=== PATIENT | male | born 1950 | race Caucasian/White ===

== ENCOUNTER 2020-06-23 15:20 | Outpatient (CLI) | payer MEDICARE, SELFPAY ==
--- NOTE | ~2020-06-23 | XR_ITS ---
EXAMINATION: XR shoulder RT min 2V EXAM DATE: 06/23/2020 15:58 INDICATION: No known recent injury provided at this time. Pain of the right shoulder. TECHNIQUE: The following right shoulder projections obtained: frontal projection with internal rotati on, frontal projection with external rotation, Grashey, and axillary (4+ views). Comparison is made t o prior examination from 09/11/2018. FINDINGS: No evidence of right shoulder rotator cuff calcific tendinosis. There is mild to moderate glenohumeral and acromioclavicular joint primary osteoarthritis. There are no acute fractures or disl ocations identified. There is no subcutaneous gas. The soft tissue is unremarkable. There are no radiopaque foreign bodies. IMPRESSION: Mild to moderate right shoulder osteoarthritis. Reviewed, dictated and finalized at location G.
== END 2020-06-23 15:21 | disposition home or self-care (01) ==
PROVIDERS: PCP Family Medicine; Visit Provider Family Medicine
DX: M19.011 Primary osteoarthritis, right shoulder (principal)
CPT/HCPCS: 73030

== ENCOUNTER 2021-02-05 12:46 | Outpatient (CLI) | payer MEDICARE, SELFPAY ==
--- NOTE | ~2021-02-05 | MR_ITS ---
EXAMINATION: MR shoulder RT wo con DATE: 02/05/2021 13:30 INDICATION: Right shoulder pain TECHNIQUE: Magnetic resonance imaging (MRI) of the right shoulder was performed without intravenous c ontrast. Sequences included axial PD-weighted FS FSE, coronal oblique PD-weighted FS FSE, coronal obl ique T2-weighted FS FSE, sagittal PD-weighted FS FSE, and sagittal T1-weighted SE. COMPARISON: Right shoulder radiographs dated 06/23/2020 FINDINGS: Coracoacromial arch: The acromion undersurface is curved in morphology (type II). There is mild marrow edema centered chidi g the undersurface of the mid and posterior acromion. The coracoacromial ligament is normal. Moderate acromioclavicular osteoarthritis. Rotator cuff: Full-thickness tear involving the majority of the supraspinatus and infraspinatus tendons with approx imately 3.5 cm medial retraction of the tear margin. There is moderate to severe tendinopathy along t he retracted tear margin. Small portion of the bursal side of the tendon remain intact the anterior s upraspinatus and posterior infraspinatus. The full-thickness portion of the tear measures approximate ly 3 cm AP at the level of the apex of the humeral head. The teres minor and subscapularis tendons ar e normal. There is medial retraction moderate fatty atrophy of both the supraspinatus and infraspinat us muscle bellies. Biceps tendon, glenoid labrum and glenohumeral cartilage: Circumferential degenerative tearing of the glenoid labrum including at the superior biceps labral co mplex. Large multilobulated para meniscal cyst which appears to arise at the posterior superior labru m which extends approximately 3.5 cm medially and posterior inferiorly across the spinal glenoid notc h and which measures 1.4 x 1.9 cm in maximal orthogonal dimensions. The long head biceps tendon howev er remains attached with no evident tendinopathy or tear. Severe right glenohumeral osteoarthritis wi th partial thickness cartilage loss which appears full/near full-thickness along the cephalad half of the glenoid with subarticular cystic changes at the superior to anterosuperior glenoid as well as at the posterior rim. Additional full/near full-thickness cartilage loss extending across much of the h umeral head relatively sparing the periphery of the articular surface. There is additional mild corti annika irregularity and minimal subarticular edema and cystic change at the superomedial aspect of the h umeral head. Fluid: Minimal glenohumeral joint effusion with proportional small amount of fluid in the long head biceps t endon sheath as well as small amount of fluid extending through the full-thickness rotator cuff tear into the subacromial/subdeltoid bursa. No loose osteochondral bodies. Bones: There is mild cephalad subluxation of the humeral head with respect to the glenoid resulting in narro wing of the subacromial space with approximately 2 mm the cortices at the apex of the jamal ral head and the undersurface of the acromion. Additional cystic changes are seen at the superior and middle facets of the greater tuberosity likely related to chronic rotator cuff disease. No fracture or pathologic marrow replacing process. IMPRESSION: 1. Severe right glenohumeral osteoarthritis with diffuse degenerative tearing of the glenoid labrum. 2. Large multilobulated or labral cyst arising from the posterior superior glenoid and extending 3.5 cm posterior inferomedially across the spinal glenoid notch. 3. Large full-thickness/severe articular sided tear of the supraspinatus and infraspinatus tendons wi th small amount of residual intact bursal side of the anterior supraspinatus and posterior infraspina tus tendons. This is likely chronic given the associated cystic change at the greater tuberosity and moderate fatty atrophy of the supraspinatus and infraspinous muscles. 4. Moderate acromioclavicular osteoarthrit
== END 2021-02-05 12:47 | disposition home or self-care (01) ==
PROVIDERS: PCP Family Medicine; Visit Provider Orthopaedic Surgery
DX: M19.011 Primary osteoarthritis, right shoulder (principal)
CPT/HCPCS: 73221

== ENCOUNTER 2021-09-14 11:25 | Emergency (ER) | payer MEDICARE, SELFPAY ==
--- NOTE | 2021-09-14 11:27 | ED.UPPEXIN ---
HPI - Extremity Injury (Upper) General Chief Complaint: Wound/Laceration Stated Complaint: lt elbow injury Time Seen by Provider: 09/14/21 11:27 Source: patient and RN notes reviewed History of Present Illness HPI narrative: Patient is a 71-year-old male who presents the urgent care with complaints of left elbow swelling. Patient [place] and is continuously had a scant amount of drainage from the left elbow with mild swelling. Patient denies of any pain. States that he is had no fevers. Range of motion to left upper extremity has been normal. No other acute complaints. No acute distress noted. Patient aware of the plan of care. Some parts of this dictation were generated by voice recognition software and may contain typographical and/or grammatical inaccuracies. Related Data Home Medications Medication Instructions Recorded Confirmed acetaminophen 500 mg PO Q6-8H 09/14/21 09/14/21 aspirin 81 mg PO DAILY 09/14/21 09/14/21 docusate sodium 100 mg PO BID 09/14/21 09/14/21 Allergies Allergy/AdvReac Type Severity Reaction Status Date / Time sertraline Allergy Mild Diarrhea Verified 09/14/21 11:42 Review of Systems Review of Systems: CONSTITUTIONAL: Denies fever, chills, or sweats. EYES: Denies visual changes, redness, or discharge. ENT: Denies rhinorrhea, congestion, sore throat, or otalgia. CARDIOVASCULAR: Denies chest pain, palpitations, or edema. RESPIRATORY: Denies cough or dyspnea. GASTROINTESTINAL: Denies abdominal pain, nausea, vomiting, or diarrhea. GENITOURINARY: Denies dysuria or hematuria. SKIN: Denies rash or itching. MUSCULOSKELETAL: Reports of swelling over the left elbow NEUROLOGIC: Denies headache, numbness, or weakness. All other systems reviewed are negative, except as documented in HPI. [facility] Past Medical History Medical History Arthritis of right shoulder region Basal cell carcinoma Benign essential hypertension BMI 23.0-23.9, adult Gout Hypertension Idiopathic peripheral neuropathy Metabolic syndrome Mixed hyperlipidemia Posttraumatic stress disorder Prediabetes Rotator cuff tendonitis Tear of right rotator cuff Surgical History Surgical History H/O colonoscopy (~04/2007) H/O colonoscopy (~06/2012) History of appendectomy (~10/21/09) Hx of colonoscopy 2011 Family History Family History Other Family history of cardiovascular disease Family history of elevated blood lipids Social History Social History Years smoked: 48 Tobacco type: pipe Alcohol intake: current Drinks per week: 14 Additional occupation/education comments: retired from [employer] Gender identity (if verbalized by the patient): Male Comments At the time of my signature, I reviewed and agree with the nursing past medical, surgical, social, and family history. There is no relevant family history pertinent to the patient complaint. Exam Narrative: GENERAL: This is a well-nourished, well-developed patient, in no apparent distress. HEAD: normocephalic, atraumatic. EYES: PERRL. Sclera clear/white. Vision is grossly intact. EARS: External ears normal NOSE: External nose normal with no obvious nasal discharge, nares without redness, no rhinorrhea. THROAT: Mucous membranes moist NECK: Neck supple, non-tender without lymphadenopathy, masses or thyromegaly. CARDIOVASCULAR: Regular rate and rhythm SKIN: Pinpoint puncture to left elbow bursitis with scant clear drainage. Warm, intact with no suspicious lesions or rash, good texture and turgor. NEURO: awake, alert, and oriented to person, place and time. There were no obvious focal neurologic abnormalities. EXTREMITIES: Mild to moderate nonerythemic/nontender bursitis to the left elbow wit
[2021-09-14 11:35] VITALS: BP 134/74; PULSE 63; RESP 20; TEMP 36.5; O2SAT 100
== END 2021-09-14 11:58 | disposition home or self-care (01) ==
PROVIDERS: Emergency Provider Nurse Practitioner Family; PCP Family Medicine
DX: M70.22 Olecranon bursitis, left elbow (principal); Z79.82 Long term (current) use of aspirin; I10 Essential (primary) hypertension; E78.2 Mixed hyperlipidemia; W19.XXXA Unspecified fall, initial encounter; Y92.828 Other wilderness area as the place of occurrence of the external cause
CPT/HCPCS: 99213; G0463

== ENCOUNTER 2022-05-11 12:45 | Outpatient (CLI) | payer MEDICARE, SELFPAY ==
--- NOTE | ~2022-05-11 | XR_ITS ---
XR cervical spine min 6V 05/11/2022 13:22 Indication: Cervicalgia Procedure: 7 view cervical spine Comparison: No prior studies for comparison. Findings: There is reversal of cervical lordosis. Prominent ventral osteophytes at multiple levels. T here is degenerative anterolisthesis at C3-4. No prevertebral soft tissue swelling. No significant al teration of alignment with flexion/extension. No acute fracture or traumatic malalignment. Odontoid p rocess is unremarkable. Lung apices are normal. Impression: 1: Moderate cervical spondylosis. Reviewed, dictated and finalized at location A. Impression: 1: Moderate cervical spondylosis.
== END 2022-05-11 12:46 | disposition home or self-care (01) ==
PROVIDERS: PCP Family Medicine; Visit Provider Family Medicine
DX: M47.892 Other spondylosis, cervical region (principal)
CPT/HCPCS: 72052

== ENCOUNTER 2022-09-25 22:21 | Emergency (ER) | payer MEDICARE, SELFPAY ==
[2022-09-25] VITALS (7 sets, daily range): BP systolic 109–122; BP diastolic 54–90; PULSE 54–66; RESP 14–19; TEMP 36.9; O2SAT 97–100
--- NOTE | ~2022-09-25 | CT_ITS ---
EXAMINATION: CT brain wo con DATE: 09/25/2022 23:04 INDICATION: Slurred speech. TECHNIQUE: Computed tomography (CT) of the head was performed without intravenous contrast. Sagittal and coronal reconstructions were performed. The mA was adjusted according to patient size. Iterative reconstruction technique was employed. The dose-length product was 605.33 mGy-cm. COMPARISON: None FINDINGS: No acute intracranial hemorrhage, acute infarction or abnormal extra axial fluid collection. There is mild scattered white matter hypoattenuation consistent with chronic small vessel ischemic disease. S ymmetric prominence of the sulci and subarachnoid spaces overlying the convexities consistent with mi ld to moderate age-appropriate diffuse cerebral volume loss. Ventricles are normal and symmetric. No mass/mass effect. Changes of left intraocular lens replacement. The orbits, paranasal sinuses and mas toid air cells are normal. IMPRESSION: 1. No acute intracranial process. 2. Age-related changes including moderate diffuse volume loss and mild scattered white matter hypoatt enuation consistent with chronic small vessel ischemic disease. Reviewed, dictated and finalized at location A. NG INSTRUCTOR IMPRESSION: 1. No acute intracranial process. 2. Age-related changes including moderate diffuse volume loss and mild scattere d white matter hypoattenuation consistent with chronic small vessel ischemic di sease.
--- NOTE | 2022-09-25 22:30 | ED.ALCOHOL ---
HPI - Alcohol General Chief Complaint: Alcohol Stated Complaint: AMS, COMBATIVE, ETOH Time Seen by Provider: 09/25/22 22:25 History of Present Illness HPI narrative: 72-year-old male here for evaluation of slurred speech for the past several hours. Patient's called EMS due to these findings and was concerned he was having a stroke, but patient admits to heavy alcohol use tonight, drinking almost 1/5 of whiskey. Patient's did not know that he was drinking heavily. He himself has no complaints. Wants to go home. Related Data Home Medications Medication Instructions Recorded Confirmed acetaminophen 500 mg tablet 500 mg PO Q6-8H 09/14/21 03/17/22 aspirin 81 mg tablet,delayed 81 mg PO DAILY 09/14/21 03/17/22 release docusate sodium 100 mg capsule 100 mg PO BID 09/14/21 03/17/22 diclofenac sodium 1 % topical gel 4 g topical QID 11/16/21 03/17/22 (Arthritis Pain (diclofenac)) hydroxyzine HCl 25 mg tablet 25 mg PO BID PRN 11/16/21 03/17/22 pregabalin 150 mg capsule 150 mg PO TID 11/16/21 03/17/22 sildenafil 100 mg tablet 100 mg PO DAILY PRN 11/16/21 03/17/22 Allergies Allergy/AdvReac Type Severity Reaction Status Date / Time sertraline Allergy Mild Diarrhea Verified 03/17/22 08:37 Review of Systems Review of Systems: Gen.: Denies fevers or chills Eyes: Denies eye pain or visual change ENT: Denies congestion Respiratory: Denies shortness of breath or cough CV: Denies chest pain or palpitations GI: Denies abdominal pain nausea, emesis or diarrhea denies burning, urgency, frequency or hematuria Musculoskeletal: Denies back pain or muscle pain Neuro: Reports slurred speech. Denies numbness, tingling, weakness or focal weakness Skin: Denies rash Except as documented, all other systems reviewed and negative PMFSH Past Medical History Medical History Arthritis of right shoulder region Basal cell carcinoma Benign essential hypertension BMI 23.0-23.9, adult Gout Hypertension Idiopathic peripheral neuropathy Metabolic syndrome Mixed hyperlipidemia Posttraumatic stress disorder Prediabetes Rotator cuff tendonitis Tear of right rotator cuff Surgical History Surgical History H/O colonoscopy (~04/2007) H/O colonoscopy (~06/2012) History of appendectomy (~10/21/09) Hx of colonoscopy 2011 S/p reverse total shoulder arthroplasty (08/19/21) right Family History Family History Other Family history of cardiovascular disease Family history of elevated blood lipids Social History Social History Years smoked: 48 Smoking status: Current every day smoker (pipe tobacco) Tobacco type: pipe Alcohol intake: current Drinks per week: 14 Additional occupation/education comments: retired from [employer] Gender identity (if verbalized by the patient): Male Exam Narrative: APPEARANCE: Appears intoxicated. Head: Normocephalic and atraumatic. EYES: PERRLA/EOMI, conjunctivae clear NOSE: No nasal drainage EARS: External ear normal in appearance THROAT: Oropharynx is clear. Mucous membranes are moist. NECK: Supple. No adenopathy, no masses. RESPIRATORY: Airway patent, respirations nonlabored. Clear to auscultation bilaterally, no rales, rhonchi, wheezing. CARDIOVASCULAR: Regular rate and rhythm without murmurs, rubs, or gallops. ABDOMINAL: Normoactive bowel sounds. Soft, nontender, nondistended. No rebound tenderness or guarding. MUSCULOSKELETAL: Extremities are warm and well-perfused. Moves all extremities well. No edema. NEURO: Speech is slurred. Cranial nerves II through XII intact. Normal patient accounts specialist strength. SKIN: Skin is warm and dry. No rashes. PSYCHIATRIC: Angry mood. Course Vital Signs Vital signs: Vital Signs Temperature 98.4 F 09/25/22 22:24 Pulse Rate
[2022-09-25] MEDS: LACTATED RINGERS 1,000 ML 999 ML IV CONT (23:17)
[2022-09-25 23:21] LABS: Glucose Point of Care 81 mg/dl (65-105)
[2022-09-25 23:25] LABS: Basophils Percent Auto 0.4 % (0.2-1.2); Eosinophils Absolute Auto 0.1 K/mm3 (0-0.3); Eosinophils Percent Auto 2.7 % (0-4.4); Hematocrit 37.8 % (42.0-52.0); Immature Granulocyte Absolute 0.02 K/mm3 (0.00-0.031); Immature Granulocyte Percent A 0.4 % (0-0.5); Lymphocytes Absolute Auto 1.91 K/mm3 (0.9-3.2); Lymphocytes Percent Auto 36.3 % (18.3-44.2); Mean Corpuscular HGB Conc 34.4 g/dl (32-36); Mean Corpuscular Hemoglobin 33.3 pg (26-34); Mean Corpuscular Volume 96.9 fl (80-100); Mean Platelet Volume 9.6 fl (7.4-10.4); Monocytes Absolute Auto 0.5 K/mm3 (0.1-0.6); Monocytes Percent Auto 8.9 % (2.6-8.5); Neutrophils Absolute Auto 2.7 K/mm3 (1.3-6.7); Neutrophils Percent Auto 51.3 % (45.5-73.1); Platelet Count Result 168 k/mm3 (150-375); Red Cell Distribution Width 13.2 % (11.5-14.5); White Blood Count 5.3 K/mm3 (4.5-10.0)
[2022-09-25 23:35] LABS: Acetaminophen < 10 ug/mL (10-30); Phosphorus 2.8 mg/dL (2.5-4.5)
[2022-09-25 23:56] LABS: Ethanol 278 mg/dL (<10)
[2022-09-25 23:57] LABS: Alanine Aminotransferase 16 U/L (6-50); Albumin Level 4.6 g/dL (3.5-5.1); Alkaline Phosphatase 44 U/L (38-126); Anion Gap 12 mmol/L (8-16); Aspartate Amino Transferase 29 U/L (17-59); Bilirubin,Total 0.6 mg/dL (0.2-1.3); Blood Urea Nitrogen 13 mg/dL (9-20); Calcium 9.1 mg/dL (8.4-10.2); Carbon Dioxide 26 mmol/L (22-30); Chloride 105 mmol/L (98-107); Estimated CRCL calculation 77 ml/min; Estimated Glomerular Filt Rate > 60; Glucose 98 mg/dL (65-110); Potassium 3.4 mmol/L (3.4-5.0); Sodium 143 mmol/L (137-145)
[2022-09-26 00:31] VITALS: BP 126/77; PULSE 58; RESP 14; O2SAT 100
[2022-09-26 01:18] VITALS: BP 122/60; PULSE 71; RESP 18; O2SAT 100
[2022-09-26 01:20] VITALS: BP 122/60; PULSE 71; RESP 18; O2SAT 97
== END 2022-09-26 01:30 | disposition home or self-care (01) ==
PROVIDERS: Emergency Provider Physician Assistant; PCP Family Medicine
DX: F10.129 Alcohol abuse with intoxication, unspecified (principal); Y90.8 Blood alcohol level of 240 mg/100 ml or more; I10 Essential (primary) hypertension; G60.9 Hereditary and idiopathic neuropathy, unspecified; E88.81 Metabolic syndrome and other insulin resistance; E78.2 Mixed hyperlipidemia; M10.9 Gout, unspecified; M19.011 Primary osteoarthritis, right shoulder; Z96.611 Presence of right artificial shoulder joint; F17.290 Nicotine dependence, other tobacco product, uncomplicated; Z79.82 Long term (current) use of aspirin; Z79.899 Other long term (current) drug therapy
CPT/HCPCS: 36415; 70450; 80053; 80307; 82948; 83735; 84100; 85025; 85610; 96360; 99284; J7120

== ENCOUNTER 2023-11-23 09:52 | Outpatient (CLI) | payer MEDICARE, SELFPAY ==
[2023-11-23 14:57] LABS: Hepatitis B Surface Antigen Negative (Negative)
[2023-11-23 15:00] LABS: HIV 1/2 Ab P24 Ag Result Negative (Negative)
[2023-11-23 15:03] LABS: HAV RESULT Negative (Negative); Hepatitis B Core IgM Result Negative (Negative)
[2023-11-23 15:14] LABS: Hepatitis C Virus Antibody Negative (Negative)
== END 2023-11-23 09:53 | disposition home or self-care (01) ==
LOC: ANHGOSHLAB 09:53
PROVIDERS: PCP Family Medicine; Visit Provider Nurse Practitioner
DX: Z77.21 Contact with and (suspected) exposure to potentially hazardous body fluids (principal)
CPT/HCPCS: 36415; 80074; 86703; G0432

== ENCOUNTER 2024-03-04 12:31 | Emergency (ER) | payer MEDICARE, SELFPAY ==
--- NOTE | ~2024-03-04 | CT_ITS ---
EXAMINATION: CT lumbar spine wo con DATE: 03/04/2024 13:02 INDICATION: Low back injury TECHNIQUE: Computed tomography (CT) of the lumbar spine was performed without intravenous contrast. T he dose-length product was 939.10 mGy-cm. Automated exposure control and iterative reconstruction technique were employed. COMPARISON: None FINDINGS: There is near complete loss of disc space at L5-S1 with marginal osteophytosis. No signific ant spinal canal stenosis at this level. Vertebral body heights are maintained. There are endplate de generative changes at L5-S1. No significant paraspinal soft tissue abnormality. There is atherosclero sis of the aorta. Lung bases are unremarkable. IMPRESSION: 1. Moderate spondylosis at L5-S1. No significant associated spinal stenosis. Reviewed, dictated and finalized at location B.
--- NOTE | ~2024-03-04 | XR_ITS ---
XR pelvis 1-2V 03/04/2024 13:05 Indication: Status post fall. Hip pain. Procedure: AP pelvis Comparison: No prior studies for comparison. Findings: Pelvic rings are intact. There is mild osteoarthritis of the hips. Sacral foramen are symme tric. There are surgical clips in the right pelvis. There are pelvic phleboliths. Impression: 1: No acute bone or joint abnormality. Reviewed, dictated and finalized at location B. Impression: 1: No acute bone or joint abnormality.
[2024-03-04 12:41] VITALS: BP 132/67; PULSE 61; RESP 18; TEMP 36.7; O2SAT 100
--- NOTE | 2024-03-04 12:45 | ED.BACK ---
HPI - Back Pain/Injury General Chief Complaint: Back Pain/Injury Stated Complaint: lower back pain Time Seen by Provider: 03/04/24 12:36 History of Present Illness HPI Narrative: Patient thinks he accidentally backed up into/ fell onto his lower back around his tailbone. He has no new numbness or weakness or tingling other than his usual neuropathy. Has been able to ambulate though it does hurts. Related Data Home Medications Medication Instructions Recorded Confirmed sildenafil 100 mg tablet 100 mg PO DAILY PRN 11/16/21 11/30/23 Allergies Allergy/AdvReac Type Severity Reaction Status Date / Time sertraline Allergy Mild Diarrhea Verified 03/04/24 12:35 Review of Systems Review of Systems: All systems reviewed & are unremarkable except as noted in HPI and below PMFSH Past Medical History Medical History Arthritis of right shoulder region Basal cell carcinoma Benign essential hypertension BMI 23.0-23.9, adult Gout Hypertension Idiopathic peripheral neuropathy Metabolic syndrome Mixed hyperlipidemia Posttraumatic stress disorder Prediabetes Rotator cuff tendonitis Tear of right rotator cuff Surgical History Surgical History H/O colonoscopy (~04/2007) H/O colonoscopy (~06/2012) History of appendectomy (~10/21/09) Hx of colonoscopy 2012 S/p reverse total shoulder arthroplasty (08/19/21) right Family History Family History Other Family history of cardiovascular disease Family history of elevated blood lipids Social History Social History Social History: Caffeine-soda/tea Years smoked: 48 Smoking status: Current every day smoker (pipe tobacco) Tobacco type: pipe Second hand tobacco smoke exposure: Yes Alcohol intake: current Drinks per week: 20 Substance use: never Substance use type: does not use Lack of Transportation: No Lack of Food: Never True Current Housing: I Have Housing Concerned About Future Housing: No Difficulty Paying Gas/Electric Bills: No Difficulty Paying for Meds: No Currently Unemployed: No Education: Associate Degree Difficulty w/ Childcare or Family Care: No Living arrangements: with family 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on: retired Additional occupation/education comments: retired from [employer] Gender identity (if verbalized by the patient): Male Exam Narrative: EXAMINATION OF ORGAN SYSTEMS/BODY AREAS: Constitutional: Vital signs per nursing GENERAL:[No acute distress, non-toxic appearing.] HEAD: Normal with no signs of head trauma. EYES: EOMI, conjunctiva normal ENT: Hearing grossly intact LUNGS: Nonlabored breathing. HEART: [Regular rate and rhythm] ABD: [Soft], [nontender to palpation] BACK: Tenderness to coccyx EXT: Normal range of motion SKIN: [No rashes or lesions.] NEURO: [Alert and oriented x 3. No gross focal sensory or strength deficits.] Moving bilateral lower extremity normally PSYCH: Normal affect Course Vital Signs Vital signs: Vital Signs Temperature 98.1 F 03/04/24 12:41 Pulse Rate 61 03/04/24 12:41 Respiratory Rate 18 03/04/24 12:41 Blood Pressure 132/67 03/04/24 12:41 Pulse Oximetry 100 03/04/24 12:41 Temperature 98.1 F 03/04/24 12:41 Pulse Rate 61 03/04/24 12:41 Respiratory Rate 18 03/04/24 12:41 Blood Pressure 132/67 03/04/24 12:41 Pulse Oximetry 100 03/04/24 12:41 MDM - Back Pain/Injury MDM Narrative Medical decision making narrative: patient presents after mechanical fall with tailbone pain, he is well-appearing on exam, given his age I did obtain imaging of his lower back and pelvis, these are thankfully normal. He has no new neurologic deficits. Patient given pain medicine and updated on results and findings, here he has
[2024-03-04] MEDS: LIDOCAINE 5% PATCH 1 PATCH TRANSDERM (13:45)
[2024-03-04] MEDS: ACETAMINOPHEN 500 MG TABLET 1000 MG PO (13:45)
== END 2024-03-04 14:02 | disposition home or self-care (01) ==
PROVIDERS: Emergency Provider Emergency Medicine; PCP Family Medicine
DX: S30.0XXA Contusion of lower back and pelvis, initial encounter (principal); G60.9 Hereditary and idiopathic neuropathy, unspecified; E78.2 Mixed hyperlipidemia; E88.810 Metabolic syndrome; M19.011 Primary osteoarthritis, right shoulder; F17.290 Nicotine dependence, other tobacco product, uncomplicated; Z85.828 Personal history of other malignant neoplasm of skin; Z79.899 Other long term (current) drug therapy; W18.39XA Other fall on same level, initial encounter
CPT/HCPCS: 72131; 72170; 99284; A9270

== ENCOUNTER 2024-03-20 13:20 | Outpatient (CLI) | payer MEDICARE, SELFPAY ==
--- NOTE | ~2024-03-20 | US_ITS ---
EXAMINATION: US soft tissue LE RT DATE: 03/20/2024 13:32 INDICATION: Right lower leg lump. TECHNIQUE: Multiple grayscale and Doppler ultrasound images of the right lower limb were obtained. COMPARISON: None FINDINGS: In the right lower leg, there is a 2.1 x 1.1 x 1.9 cm subcutaneous cyst. IMPRESSION: 1. 2.1 cm subcutaneous cyst in the right lower leg which may be a chronic hematoma or synovial cyst. Reviewed, dictated and finalized at location A. IMPRESSION: 1. 2.1 cm subcutaneous cyst in the right lower leg which may be a chronic hemat darci or synovial cyst.
== END 2024-03-20 13:21 ==
LOC: GOSHIMG 13:21
PROVIDERS: PCP Family Medicine; Visit Provider Family Medicine
DX: R22.41 Localized swelling, mass and lump, right lower limb (principal)
CPT/HCPCS: 76882

== ENCOUNTER 2024-04-16 15:48 | Observation (INO) | payer MEDICARE, SELFPAY ==
[2024-04-16] VITALS (8 sets, daily range): BP systolic 121–145; BP diastolic 64–78; PULSE 48–86; RESP 14–20; TEMP 36.4–36.8; O2SAT 97–100; BMI 21.9
--- NOTE | ~2024-04-16 | XR_ITS ---
XR chest 1V Ordering provider: Fariba Rod PA-C History: 73 years Male with . confusion . Comparison: October 21, 2009 FINDINGS: MEDIASTINUM: The cardiac silhouette is not enlarged. LUNGS: No infiltrates, effusions or pneumothorax. Underlying emphysematous changes. OTHER: No free air under the diaphragm. Right shoulder arthroplasty. Degenerative changes of the spine. IMPRESSION: No acute cardiopulmonary pathology. Reviewed, dictated and finalized at location A.
--- NOTE | ~2024-04-16 | MR_ITS ---
MRI of the brain Clinical History: Altered mental status Technique: Axial and sagittal T1-weighted images were acquired. These were followed by axial T2-weigh ellen, diffusion weighted, gradient, and FLAIR images. Following intravenous administration of 14 cc Mu ltiHance gadolinium, T1-weighted fat-sat imaging was performed in the axial and coronal planes. Findings: There is no acute infarct, intracranial hemorrhage or mass lesion. There are moderate chron ic microvascular ischemic changes in the periventricular white matter. Ventricles and subarachnoid spaces are dilated. Orbits are unremarkable. Paranasal sinuses and mastoi d air cells are clear. Major intracranial flow voids are intact. Sagittal midline structures are intact. No abnormal postcontrast enhancement identified. IMPRESSION: No acute infarct, intracranial hemorrhage, or mass lesion. Moderate chronic microvascular ischemic changes and mild to moderate generalized atrophy. Reviewed, dictated and finalized at [facility]. IMPRESSION: No acute infarct, intracranial hemorrhage, or mass lesion. Moderate chronic microvascular ischemic changes and mild to moderate generalize d atrophy.
--- NOTE | ~2024-04-16 | CT_ITS ---
EXAMINATION: CT brain wo con DATE: 04/16/2024 16:44 INDICATION: AMS . TECHNIQUE: Computed tomography (CT) of the head was performed without intravenous contrast. The mA wa s adjusted according to patient size. Iterative reconstruction technique was employed. The dose-lengt h product was 605.33 mGy-cm. COMPARISON: 09/25/2022. FINDINGS: No acute intracranial hemorrhage or extra-axial fluid collection. No hydrocephalus, mass, or herniation. No acute ischemic infarct. Unremarkable dural venous sinus attenuation. No acute osseous abnormality. Aerated secretions in the left maxillary sinus, the remaining aerated spaces are clear. Moderate atrophy and mild chronic white matter change. Atherosclerotic intracranial calcification. Sm all old right basal ganglia lacunar infarct. Left lens replacement. IMPRESSION: No acute intracranial process. Left maxillary aerated secretions may represent acute sinusitis in the appropriate clinical context. Reviewed, dictated and finalized at location K. IMPRESSION: No acute intracranial process. Left maxillary aerated secretions may represent acute sinusitis in the appropri ate clinical context.
--- NOTE | 2024-04-16 16:10 | ED.GENADULT ---
HPI - General Adult General Chief complaint: Unspecified <Fariba Rod PA-C - Last Filed: 04/17/24 11:52> Stated complaint: can't sleep <Fariba Rod PA-C - Last Filed: 04/17/24 11:52> Time Seen by Provider: 04/16/24 16:10 <Fariba Rod PA-C - Last Filed: 04/17/24 11:52> Focused HPI: This is a 73 year old male that presents to the ER for confusion. reports he was his normal self on Tuesday. When he woke up Tuesday morning he seemed confused. This has persisted since. Patient reports he has had some trouble sleeping, otherwise has no complaints. No focal numbness or weakness. GENERAL: Well-appearing, well-nourished, and in no acute distress. HEAD: Normocephalic, atraumatic. CHEST: Clear to auscultation. ?No respiratory distress. HEART: Regular rate and rhythm.? NEURO: ?Alert and oriented x3. Patient screened in triage and initial orders placed.? ?Additional care and disposition to be based upon?diagnostic testing and treatment. <Fariba Rod PA-C - Last Filed: 04/17/24 11:52> History of Present Illness HPI narrative: Patient is a 73-year-old male with history of peripheral neuropathy, on pregabalin here with confusion. Family states that patient went to bed like his normal self on Tuesday. They do note that he had told him that he fell feeding some raccoons on Tuesday night. They do not state that he hit his head. When he woke up on Tuesday he seemed to be less like himself. They note that he typically is a very routine bhakti, does the same appearance every single weekend however performed none of those this weekend. Today daughter returned from a out of town trip, had seen him and ended up calling EMS due to concern that he is much different than he normally is. They note that they have trouble communicating with him and he seems to be slow, not following his normal routine, not sleeping at night and not acting like himself. He denies any numbness or weakness in his arms or legs. They deny any recent changes of medications. EMS in epic evaluating him, did not believe that he was having an acute stroke, he preferred to refuse transport to the hospital. They did contact their primary care doctor who recommended that he get brought into the emergency department for evaluation. That is what prompted him to come into the ER today. He denies cough, congestion, fever, chills, urinary symptoms, diarrhea. <Jacy Krishnamurthy MD - Last Filed: 04/16/24 20:47> Related Data Home medications: Home Medications Medication Instructions Recorded Confirmed acetaminophen 500 mg tablet 1,000 mg PO Q6H PRN Pain (Scale 04/16/24 04/16/24 (Tylenol Extra Strength) Score 1-3) atorvastatin 10 mg tablet 10 mg PO DAILY 04/16/24 04/16/24 diclofenac sodium 75 mg 75 mg PO BID 04/16/24 04/16/24 tablet,delayed release fenofibrate 54 mg tablet 54 mg PO DAILY 04/16/24 04/16/24 <Fariba Rod PA-C - Last Filed: 04/17/24 11:52> Allergies/adverse reactions: Allergies Allergy/AdvReac Type Severity Reaction Status Date / Time sertraline AdvReac Mild Diarrhea Verified 04/16/24 16:11 <Fariba Rod PA-C - Last Filed: 04/17/24 11:52> Review of Systems Review of Systems: All systems reviewed & are unremarkable except as noted in HPI and below <Jacy Krishnamurthy MD - Last Filed: 04/16/24 20:47> PMFSH Past Medical History Medical History: Medical History Arthritis of right shoulder region Basal cell carcinoma Benign essential hypertension BMI 23.0-23.9, adult Gout Hypertension Idiopathic peripheral neuropathy Metabolic syndrome Mixed hyperlipidemia Posttraumatic stress disorder Prediabetes Rotator cuff tendonitis Tear of right rotator cuff <Fariba Rod PA-C - Last Filed: 04/17/24 11:52> Surgical History Surgical History: Surgical History H/O colonoscopy (~04/2007)
--- NOTE | 2024-04-16 16:14 | ECG_ITS ---
Test Date: 2024-04-16 17:18:45 Measurements Intervals Snow Rate: 56 P: 249 DC: 108 QRS: -7 QRSD: 83 T: 19 QT: 412 QTc: 399 Interpretive Statements SINUS RHYTHM DELAYED PRECORDIAL R/S TRANSITION BASELINE ARTIFACT- I, II, III, AVR, AVL, AVF BORDERLINE ECG No previous ECG available for comparison Electronically Signed On 04-16-2024 17:56:21 CDT by Anthony Cash D.O.
[2024-04-16 17:31] LABS: Basophils Percent Auto 0.6 % (0.2-1.2); Eosinophils Absolute Auto 0.1 K/mm3 (0-0.3); Eosinophils Percent Auto 1.9 % (0-4.4); Hematocrit 41.2 % (42.0-52.0); Hemoglobin 14.4 g/dL (14.0-18.0); Immature Granulocyte Absolute 0.01 K/mm3 (0.00-0.031); Immature Granulocyte Percent A 0.2 % (0-0.5); Immature Platelet Fraction Pct 3.7 % (0.9-11.2); Lymphocytes Absolute Auto 1.48 K/mm3 (0.9-3.2); Lymphocytes Percent Auto 30.7 % (18.3-44.2); Mean Corpuscular Hemoglobin 33.8 pg (26-34); Mean Corpuscular Volume 96.7 fl (80-100); Monocytes Absolute Auto 0.5 K/mm3 (0.1-0.6); Monocytes Percent Auto 9.8 % (2.6-8.5); Neutrophils Absolute Auto 2.7 K/mm3 (1.3-6.7); Neutrophils Percent Auto 56.8 % (45.5-73.1); Platelet Count Result 134 k/mm3 (150-375); Red Blood Count 4.26 M/mm3 (4.6-6.20); Red Cell Distribution Width 13.8 % (11.5-14.5); White Blood Count 4.8 K/mm3 (4.5-10.0)
[2024-04-16 17:41] LABS: Prothrombin Time 13.6 Seconds (11.1-14.7)
[2024-04-16 17:42] LABS: Partial Thromboplastin Time 20.6 Seconds (22.3-36.8)
[2024-04-16 19:23] LABS: Appearance Urine Clear (Clear); Bacteria Urine None Seen /hpf; Bilirubin Urine 2+ (Negative); Blood Urine Negative (Negative); Color Urine Dark Yellow (Yellow); Glucose Urine UA Negative (Negative); Ketones Urine Trace mg/dL (Negative); Leukocyte Esterase Ur Trace LEU/UL (Negative); Need Manual Microscopic Reviewed; Nitrate Urine Negative (Negative); Non Pathogenic Casts 0-2; Protein Urine Trace mg/dL (Negative); RBC Urine 0-2 /hpf (0-2); Specific Grav Ur 1.028 (1.001-1.035); Squamous Epithelial Cell Urine Occasional /hpf (Few); pH Urine 5.5 (5.0-9.0)
[2024-04-16 19:28] LABS: Add Urine Microscopic? YES
[2024-04-16 19:29] LABS: Alanine Aminotransferase 17 U/L (6-50); Albumin Level 4.5 g/dL (3.5-5.1); Alkaline Phosphatase 46 U/L (38-126); Anion Gap 10 mmol/L (4-12); Aspartate Amino Transferase 30 U/L (17-59); Bilirubin,Total 1.2 mg/dL (0.2-1.3); Blood Urea Nitrogen 21 mg/dL (9-20); Calcium 9.1 mg/dL (8.4-10.2); Carbon Dioxide 26 mmol/L (22-30); Chloride 101 mmol/L (98-107); Estimated CRCL calculation 63 ml/min; Estimated Glomerular Filt Rate > 60; Glucose 96 mg/dL (65-110); Potassium 3.7 mmol/L (3.4-5.0); Sodium 137 mmol/L (137-145)
[2024-04-16 19:33] LABS: Troponin I < 0.012 ng/mL (0.000-0.034)
--- NOTE | 2024-04-16 20:41 | PM.IMHP ---
H&P: HPI History of Present Illness Date/Time: 04/16/24 20:41 Chief Complaint: ams Narrative: This is a 73-year-old male with past medical history significant for arthritis, basal cell carcinoma, benign essential hypertension, gout, idiopathic peripheral neuropathy, mixed hyperlipidemia. patient was brought for evaluation to the emergency room due to erratic behavior which is unusual for the patient as per family members patient here is able to tell me where he is at however can not tell why he is here and since was trouble finding answers as well as repeating questions back to me, preliminary workup was significant for urinalysis with 6-[address] of the head did not show acute abnormality. Patient has been placed in observation for further evaluation management and treat EXAMINATION: CT brain wo con DATE: 04/16/2024 16:44 INDICATION: AMS . TECHNIQUE: Computed tomography (CT) of the head was performed without intravenous contrast. The mA was adjusted according to patient size. Iterative reconstruction technique was employed. The dose-length product was 605.33 mGy-cm. COMPARISON: 09/25/2022. FINDINGS: No acute intracranial hemorrhage or extra-axial fluid collection. No hydrocephalus, mass, or herniation. No acute ischemic infarct. Unremarkable dural venous sinus attenuation. No acute osseous abnormality. Aerated secretions in the left maxillary sinus, the remaining aerated spaces are clear. Moderate atrophy and mild chronic white matter change. Atherosclerotic intracranial calcification. 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 Left lens replacement. IMPRESSION: No acute intracranial process. Left maxillary aerated secretions may represent acute sinusitis in the appropriate clinical context. XR chest 1V Ordering provider: Fariba Rod PA-C History: 73 years Male with . confusion . Comparison: October 21, 2009 FINDINGS: MEDIASTINUM: The cardiac silhouette is not enlarged. LUNGS: No infiltrates, effusions or pneumothorax. Underlying emphysematous changes. OTHER: No free air under the diaphragm. Right shoulder arthroplasty. Degenerative changes of the spine. IMPRESSION: No acute cardiopulmonary pathology. Review of Systems Review of Systems: ROS unobtainable: Yes unobtainable due to mental status (confusion) [facility] Past Medical History Medical History Arthritis of right shoulder region Basal cell carcinoma Benign essential hypertension BMI 23.0-23.9, adult Gout Hypertension Idiopathic peripheral neuropathy Metabolic syndrome Mixed hyperlipidemia Posttraumatic stress disorder Prediabetes Rotator cuff tendonitis Tear of right rotator cuff Surgical History Surgical History H/O colonoscopy (~04/2007) H/O colonoscopy (~06/2012) History of appendectomy (~10/21/09) Hx of colonoscopy 2012 S/p reverse total shoulder arthroplasty (08/19/21) right Family History Family History Other Family history of cardiovascular disease Family history of elevated blood lipids Social History Social History Social History: Caffeine-soda/tea Years smoked: 48 Smoking status: Former smoker Tobacco type: pipe Second hand tobacco smoke exposure: Yes Alcohol intake: current Drinks per week: 12 Substance use: never Substance use type: does not use Do You Feel Safe in your Home?: Yes Lack of Transportation: No Lack of Food: Never True Current Housing: I Have Housing Concerned About Future Housing: No Difficulty Paying Gas/Electric Bills: No Difficulty Paying for Meds: No Currently Unemployed: No Education: High School Diploma/GED Difficulty w/ Childcare or Family Care: No Living arrangements: with family 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
--- NOTE | 2024-04-16 23:01 | ADMGEN ---
This patient, Chung Mueller Jr., was admitted to Medical Room 243-01. Patient/family oriented to hospital policies and general routines including ID bracelet, bed and alarms, visiting hours, pain management, procedures, bathroom and other care routines, personal items, smoking policy, room service/diet, and visiting hours. Information on how to activate the Rapid Response Team has been discussed. Patient/Family are encouraged to report perceived risks to care and to ask questions if they do not understand what they are told or what they should do.
[2024-04-17] VITALS (10 sets, daily range): BP systolic 121–130; BP diastolic 60–71; PULSE 44–83; RESP 16–18; TEMP 36–36.7; O2SAT 97–100
--- NOTE | 2024-04-17 07:37 | PM.IMPN ---
Progress Note: A&P Assessment and Plan (1) Acute confusion: Code(s): R41.0 - Disorientation, unspecified Status: Acute Assessment and Plan: placed in observation CT head reviewed MRI of the brain in the morning - unclear etiology of confusion- as exam is unremarkable, lab and imaging studies are negative so far- except uti(trace leukocytes, wbc 6-10) - based on MRI results- will see if neurology consult is prudent (2) UTI (urinary tract infection): Qualifiers: Hematuria presence: without hematuria Urinary tract infection type: site unspecified Qualified Code(s): N39.0 - Urinary tract infection, site not specified Code(s): N39.0 - Urinary tract infection, site not specified Status: Acute Assessment and Plan: started on Rocephin - cultures pending (3) Nicotine dependence: Code(s): F17.200 - Nicotine dependence, unspecified, uncomplicated Status: Acute (4) Gout: Code(s): M10.9 - Gout, unspecified Status: Acute Assessment and Plan: resume home meds (5) Idiopathic peripheral neuropathy: Code(s): G60.9 - Hereditary and idiopathic neuropathy, unspecified Status: Chronic Assessment and Plan: resume home meds (6) Benign essential hypertension: Code(s): I10 - Essential (primary) hypertension Status: Chronic Assessment and Plan: -124/60 -reviewed and stable -monitor Plan h/o gout- will resume home allopurinol h/o hld- will resume home atorvastatin h/o neuropathy- will resume home garret Time Spent With Patient Time with patient: Greater than 35 minutes Subjective Date/time seen: 04/17/24 07:37 Interval history: Narrative retrieved from H/P: This is a 73-year-old male with past medical history significant for arthritis, basal cell carcinoma, benign essential hypertension, gout, idiopathic peripheral neuropathy, mixed hyperlipidemia. patient was brought for evaluation to the emergency room due to erratic behavior which is unusual for the patient.. Preliminary workup was significant for urinalysis with 6-[address] of the head did not show acute abnormality. Patient has been placed in observation for further evaluation management and treat CT brain: no acute process, chest xray: no acute cardiopulmonary process 04/17 pt is seen and examined at the bedside. Pt seems alert but having hard time answering some questions. Reports no pain but tired of staying in bed . Will add PT/OT. Denies chest pain, n/v/d. Review of Systems Cardiovascular: Cardiovascular: Denies chest pain Respiratory: Respiratory: Denies chest congestion and Denies cough Gastrointestinal: Gastrointestinal: Denies abdominal pain Musculoskeletal: Musculoskeletal: Reports back pain Comments: reports some back pain from staying in bed. Neurologic: Reports confusion Psychiatric: Psychiatric: Reports confusion Exam Narrative: lying in stretcher Const: General: comfortable, no acute distress, well developed, alert, awake, confusion and average body habitus Nutritional Appearance: average body habitus Orientation/consciousness: oriented to person, oriented to place and patient oriented x3 Other: answers questions appropriately but takes him a minute HENMT: Head: normal to inspection, normocephalic and atraumatic Ears: hearing grossly normal bilaterally Face/Nose/Sinus: normal facial exam Face and sinus: normal facial exam Eyes: General: appearance normal, both eyes and all related structures Pupils: Equal, round and reactive pupils present EOM: EOMs intact bilaterally Neck: Neck: full ROM, no lymphadenopathy and no JVD Thyroid: thyroid normal Lymphatic: no lymphadenopathy noted Resp: Effort & Inspection: normal respiratory effort and able to speak in complete sentences Auscultation: clear to auscultation bilaterally Cardio: Jugular venous distension: no JVD Rate: regular rate Rhythm: regula
--- NOTE | 2024-04-17 11:48 | PCPTNOTE ---
On 04/17/24, the student, [Sera Chavez], provided care and completed [facility] documentation on this patient. I have reviewed the student's documentation and agree with the findings.
[2024-04-17] MEDS: ATORVASTATIN 10 MG TABLET PO (12:18)
[2024-04-17] MEDS: allopurinoL 300 MG TABLET PO (12:18)
[2024-04-17] MEDS: PREGABALIN (*CRX) 75 MG CAPSULE 150 MG PO ×2 (12:18→17:07)
[2024-04-17] MEDS: FENOFIBRATE,MICRONIZED 48 MG TABLET PO (12:18)
[2024-04-17] MEDS: DICLOFENAC SOD 75 MG TABLET.EC PO ×2 (12:18→17:07)
[2024-04-18] VITALS: PULSE 40
[2024-04-18 04:00] VITALS: PULSE 40
[2024-04-18 05:30] VITALS: BP 116/65; PULSE 56; RESP 20; TEMP 36.7; O2SAT 100
--- NOTE | 2024-04-18 07:52 | PM.IMPN ---
Progress Note: A&P Assessment and Plan (1) Acute confusion: Code(s): R41.0 - Disorientation, unspecified Status: Acute Assessment and Plan: placed in observation CT head reviewed MRI of the brain in the morning - unclear etiology of confusion- as exam is unremarkable, lab and imaging studies are negative so far- except uti(trace leukocytes, wbc 6-10) - based on MRI results- will see if neurology consult is prudent 04/18- mri unremarkable. UTI showed no growth (2) UTI (urinary tract infection): Qualifiers: Hematuria presence: without hematuria Urinary tract infection type: site unspecified Qualified Code(s): N39.0 - Urinary tract infection, site not specified Code(s): N39.0 - Urinary tract infection, site not specified Status: Acute Assessment and Plan: started on Rocephin see above (3) Nicotine dependence: Code(s): F17.200 - Nicotine dependence, unspecified, uncomplicated Status: Acute (4) Gout: Code(s): M10.9 - Gout, unspecified Status: Acute Assessment and Plan: resume home meds (5) Idiopathic peripheral neuropathy: Code(s): G60.9 - Hereditary and idiopathic neuropathy, unspecified Status: Chronic Assessment and Plan: resume home meds (6) Benign essential hypertension: Code(s): I10 - Essential (primary) hypertension Status: Chronic Assessment and Plan: -124/60 -reviewed and stable -monitor Plan h/o gout- will resume home allopurinol h/o hld- will resume home atorvastatin h/o neuropathy- will resume home garret Time Spent With Patient Time with patient: 25 - 35 minutes Subjective Date/time seen: 04/18/24 07:52 Interval history: Narrative retrieved from H/P: This is a 73-year-old male with past medical history significant for arthritis, basal cell carcinoma, benign essential hypertension, gout, idiopathic peripheral neuropathy, mixed hyperlipidemia. patient was brought for evaluation to the emergency room due to erratic behavior which is unusual for the patient.. Preliminary workup was significant for urinalysis with 6-[address] of the head did not show acute abnormality. Patient has been placed in observation for further evaluation management and treat CT brain: no acute process, chest xray: no acute cardiopulmonary process 04/17 pt is seen and examined at the bedside. Pt seems alert but having hard time answering some questions. Reports no pain but tired of staying in bed . Will add PT/OT. Denies chest pain, n/v/d. 04/18- MRI unremarkable. Urine show no growth Review of Systems Review of Systems: ROS unobtainable: Yes unobtainable due to mental status (confusion) Cardiovascular: Cardiovascular: Denies chest pain Respiratory: Respiratory: Denies chest congestion and Denies cough Gastrointestinal: Gastrointestinal: Denies abdominal pain Musculoskeletal: Musculoskeletal: Reports back pain Neurologic: Reports confusion Psychiatric: Psychiatric: Reports confusion Exam Narrative: lying in stretcher Const: General: comfortable, no acute distress, well developed, alert, awake, confusion and average body habitus Nutritional Appearance: average body habitus Orientation/consciousness: oriented to person, oriented to place, patient oriented x3 and confusion Other: answers questions appropriately but takes him a minute HENMT: Head: normal to inspection, normocephalic and atraumatic Ears: hearing grossly normal bilaterally Face/Nose/Sinus: normal facial exam Face and sinus: normal facial exam Eyes: General: appearance normal, both eyes and all related structures Pupils: Equal, round and reactive pupils present EOM: EOMs intact bilaterally Neck: Neck: full ROM, no lymphadenopathy and no JVD Thyroid: thyroid normal Lymphatic: no lymphadenopathy noted Resp: Effort & Inspection: normal respiratory effort and able to speak in complete sentences Ausculta
[2024-04-18] MEDS: allopurinoL 300 MG TABLET PO (08:38)
[2024-04-18] MEDS: PREGABALIN (*CRX) 75 MG CAPSULE 150 MG PO ×2 (08:38→12:00)
[2024-04-18] MEDS: DICLOFENAC SOD 75 MG TABLET.EC PO (08:38)
[2024-04-18] MEDS: ATORVASTATIN 10 MG TABLET PO (08:38)
[2024-04-18] MEDS: FENOFIBRATE,MICRONIZED 48 MG TABLET PO (08:38)
--- NOTE | 2024-04-18 10:15 | PM.DS ---
DS: Admitting Diagnosis Discharge Date 04/18 Admitting Diagnosis ams DS: Discharge Diagnosis Discharge Diagnosis (1) Acute confusion: Code(s): R41.0 - Disorientation, unspecified Status: Acute Assessment and Plan: placed in observation CT head reviewed MRI of the brain in the morning - unclear etiology of confusion- as exam is unremarkable, lab and imaging studies are negative so far- except uti(trace leukocytes, wbc 6-10) - based on MRI results- will see if neurology consult is prudent 04/18- mri unremarkable. UTI showed no growth (2) UTI (urinary tract infection): Qualifiers: Hematuria presence: without hematuria Urinary tract infection type: site unspecified Qualified Code(s): N39.0 - Urinary tract infection, site not specified Code(s): N39.0 - Urinary tract infection, site not specified Status: Acute Assessment and Plan: started on Rocephin see above (3) Nicotine dependence: Code(s): F17.200 - Nicotine dependence, unspecified, uncomplicated Status: Acute (4) Gout: Code(s): M10.9 - Gout, unspecified Status: Acute Assessment and Plan: resume home meds (5) Idiopathic peripheral neuropathy: Code(s): G60.9 - Hereditary and idiopathic neuropathy, unspecified Status: Chronic Assessment and Plan: resume home meds (6) Benign essential hypertension: Code(s): I10 - Essential (primary) hypertension Status: Chronic Assessment and Plan: -124/60 -reviewed and stable -monitor Plan final dx: ams -RESOLVED h/o gout- will resume home allopurinol h/o hld- will resume home atorvastatin h/o neuropathy- will resume home garret DS: Summary Hospital Course Hospital Course: This is a 73-year-old male with past medical history significant for arthritis, basal cell carcinoma, benign essential hypertension, gout, idiopathic peripheral neuropathy, mixed hyperlipidemia. patient was brought for evaluation to the emergency room due to erratic behavior which is unusual for the patient.. Preliminary workup was significant for urinalysis with 6-[address] of the head did not show acute abnormality. Patient has been placed in observation for further evaluation management and treat CT brain: no acute process, chest xray: no acute cardiopulmonary process 04/17 pt is seen and examined at the bedside. Pt seems alert but having hard time answering some questions. Reports no pain but tired of staying in bed . Will add PT/OT. Denies chest pain, n/v/d. 04/18- MRI unremarkable. Urine show no growth. pt is back to baseline- alert, oriented, wanted alberto discharged to play gold this weekedn. Will need f/u with PCP and neurology for further evaluation Status at Discharge Functional status at discharge: uses cane/walker Overall status at discharge: patient is back to baseline Time Spent with Patient Time attestation: Total time spent providing and/or coordinating discharge services: Time spent: Less than 30 minutes Exam Narrative: lying in stretcher Const: General: comfortable, no acute distress, well developed, alert, awake and average body habitus Nutritional Appearance: average body habitus Orientation/consciousness: oriented to person, oriented to place and patient oriented x3 Other: answers questions appropriately but takes him a minute HENMT: Head: normal to inspection, normocephalic and atraumatic Ears: hearing grossly normal bilaterally Face/Nose/Sinus: normal facial exam Face and sinus: normal facial exam Eyes: General: appearance normal, both eyes and all related structures Pupils: Equal, round and reactive pupils present EOM: EOMs intact bilaterally Neck: Neck: full ROM, no lymphadenopathy and no JVD Thyroid: thyroid normal Lymphatic: no lymphadenopathy noted Resp: Effort & Inspection: normal respiratory effort and able to speak in complete sentences Auscultation: clear to auscultation b
[2024-04-18 12:40] LABS: Glucose Point of Care 88 mg/dl (65-105)
== END 2024-04-18 13:05 | disposition home health service (06) ==
LOC: ANHED 20:34 → ANH3MEDSUR 21:53 → ANH2MED 22:49
PROVIDERS: Physician Assistant; Admitting Provider Internal Medicine; Emergency Provider Student in an Organized Health Care Education/Training Program; PCP Family Medicine; Visit Provider Internal Medicine
DX: N39.0 Urinary tract infection, site not specified (principal); I10 Essential (primary) hypertension; E78.2 Mixed hyperlipidemia; G60.9 Hereditary and idiopathic neuropathy, unspecified; F43.10 Post-traumatic stress disorder, unspecified; M10.9 Gout, unspecified; R73.03 Prediabetes; Z87.891 Personal history of nicotine dependence
CPT/HCPCS: 36415; 70450; 70553; 71045; 80053; 81001; 82948; 84484; 85025; 85055; 85610; 85730; 87086; 93005; 96365; 97161; 97165; 99285; A9270; A9577; G0378; J0696

== ENCOUNTER 2024-10-09 09:23 | Outpatient (CLI) | payer MEDICARE, SELFPAY ==
[2024-10-09 10:06] LABS: Cholesterol 133 mg/dL (0-200); HDL Direct 53 mg/dL
[2024-10-09 10:07] LABS: LDL Cholesterol Direct 55 mg/dL
[2024-10-09 10:14] LABS: Triglycerides 111 mg/dL (<150)
[2024-10-09 10:47] LABS: Vitamin B12 > 1000.0 pg/mL (239-931)
[2024-10-10 11:58] LABS: Homocysteine 8.9 umol/L (<11.4)
[2024-10-10 13:18] LABS: Red Blood Cell Folate 558 ng/mL RBC (>280)
[2024-10-12 15:14] LABS: Methylmalonic Acid 129 nmol/L (69-390)
[2024-10-14 18:53] LABS: Vitamin D 1,25 (OH)2 Total 48 pg/mL (18-72); Vitamin D2 1,25 (OH)2 <8 pg/mL; Vitamin D3 1,25 (OH)2 48 pg/mL
--- OUTSIDE RECORDS SUMMARY | 2024-10-16 02:22 | XMS_ITS | Encounter Summary ---
Author Name [facility] ([place]) Organization [facility] ([place]) Address [address] [place] [address] Care Team Providers Care Warehouse Team Member Name Role Phone RUDOLPH AWAD Primary Care Provider Unavailabl e Insurance Providers: All historical and current Section Date Range: From patient's date of to the date document was created. This section includes the names of all active insurance providers for the patient. Insurance Provider Type of Coverage Plan Name Start of Policy Coverage End of Policy Coverage Group Number Member ID Insurance Provider's Telephone Number Policy Mayo's Name Patient's Relationship to Policy Mayo [employer] [facility] (WNR) MEDICARE ADVANTAGE [facility] (WNR) Oct 03, 2022 [id number] Sunita DESIR PATIENT ANTHEM BCBS [facility] G TRADI JACIEL L Oct 03, 2013 [id number] [phone] KARLEESunitaARD PATIENT [place] [facility] G TRADI JACIEL L Oct 03, 2013 [id number] [phone] Sunita DESIR PATIENT [place] [facility] BOEIN G TRADI JACIEL L Oct 03, 2013 [id number] [phone] [facility]IR [facility] MAHIN Powell Oct 03, 2013 [id number] [phone] Sunita DESIR PATIENT MEDICARE (WNR) MEDICARE ([place]) PART B Nov 03, 2009 PART B [id number] JOVANI DESIR JR PATIENT [facility] (WNR) MEDICARE ADVANTAGE [facility] (WNR) Oct 03, 2020 [id number] Sunita DESIR PATIENT Selected Encounter This section includes the information on record at [place] for the Encounter. Date/Time Encounter Type Encounter Description Reason Provider Source February 07, 2024 10:55 AM Outpatient Encounter PRIMARY CARE/MEDICINE MARCIANO HERNANDEZ Bonny Encounter Template Text not used by [place] Plan of Treatment: Future Appointments (+ 6 months) and Future Tests (+/- 45 days) The Plan of Treatment section includes future care activities for the patient from all [place] treatmentfacilities. This section includes future appointments and future orders which are active, pending or scheduled. Future Appointments This section includes appointments that were scheduled to occur 6 months from the date of the Encounter, up to a maximum of 20 appointments. The data comes from all [place] treatment facilities. Appointment Date/Time Appointment Type Appointme nt Facility Name Mar 30, 2024 09:30 AM AMBULATORY - MEDICINE [facility] Social History: Smoking Status (Most current) and Tobacco Use (All prior to encounter date) This section includes the most current, and the historical, smoking and tobacco- related health factors from the [place] facility where the Encounter took place. Current Smoking Status This section includes the most current smoking, or tobacco-related health factor, from the [place] facility where the Encounter took place. Date/Time Current Smoking Status Comment Riky ity Sep 27, 2023 01:41 PM VA-TOBACCO DOESNT USE [place] [facility] Tobacco Use History This section includes a history of the smoking, or tobacco-related health factors, that were collected on or before the date of the Encounter. The data comes from the [place] facility where the Encounter took place. 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 This section includes ALL of a patient's completed or amended [place] Advance and Rescinded Directives. The entries below indicate that a directive exists for the patient, but an actual copy is not included with this document. The data comes from all [place] facilities. Date Advance Directives Provider Source Mar 17, 2011 ADVANCE DIRECTIVE DISCUSSION JADE MARTINEZ [facility] Encounter Notes: All associated encounter notes This section contains the clinical notes associated to the Encounter. Date/Time Encounter Note(s) Provider Source February 07, 2024 10:55 AM PRIMARY CARE [employer] MESSAGING: LOCAL TITLE: PRIMARY CARE SECURE MESSAGING STANDARD TITLE: PRIMARY CARE SECURE MESSAGING DATE OF NOTE: FEBRUARY 07, 2024@10:55 ENTRY DATE: FEBRUARY 07, 2024@10:55:12 AUTHOR: MARCIANO HERNANDEZ EXP COSIGNER: URGENCY: STATUS: COMPLETED ------Original Message ------ Sent: 02/07/2024 11:53 AM ET From: MARCIANO HERNANDEZ To: ANTONIETA DESIR Subject: General:General Inquiry The following is a message from your provider. [facility] requesting Lyrica to be filled by the [place]. [facility] obtained Lyrica from private PCP Dr. Cassandra Delgado 01/10/24 30 day supply with three refills. Recommend discuss further with his private PCP. Thank you! Thank you, TIO To /lidia/ MARCIANO HERNANDEZ RN BSN REGISTERED NURSE Signed: 02/07/2024 10:55 MARCIANO HERNANDEZ [facility]
--- OUTSIDE RECORDS SUMMARY | 2024-10-16 02:22 | XMS_ITS ---
Author Name [facility] [facility] [place] [facility] [place] [facility] [place] Address [address] [place] [address] Care Team Providers Care Contract Consultant Name Role Phone LAVERN AWAD Primary Care Provider Unavailabl e Insurance [...] Name Patient's Relationship to Policy Mayo AETNA [facility] (WNR) MEDICARE ADVANTAGE [facility] (WNR) Oct 03, 2022 [id number] KARLEESunita ILLKELSEY PATIENT ANTHEM BCBS [place] [facility] [facility] TRADI JACIEL L Oct 03, 2013 [id number] [phone] KARLEEW ILLKELSEY PATIENT ANTHE[place] COMPREH[place] [facility] G TRADI JACIEL L Oct 03, 2013 [id number] [phone] KARLEEW ILLKELSEY PATIENT [place] COMPREH[place] [facility] [employer] G TRADI JACIEL L Oct 03, 2013 [id number] [phone] KARLEE,W ILLARD PATIENT [facility] Oct 03, 2013 [id number] [phone] Sunita DESIR PATIENT MEDICARE (WNR) MEDICARE (M) PART B Nov 03, 2009 PART B [id number] KARLEEJOVANI SHEPARD JR Sameera PATIENT [facility] (WNR) MEDICARE ADVANTAGE MCR (WNR) Oct 03, 2020 [id number] Sunita DESIR PATIENT Selected Encounter This section includes the information on record at [place] for the Encounter. Date/Time Encounter Type Encounter Description Reason Provider Source Sep 17, 2024 11:00 AM COMPRE OPH EXAM EST PT 1/> OPTOMETRY ICD-10-CM H25.11 Age-related nuclear cataract, right eye GEMMA MARIE Bonny Encounter Template Text not used by VA Assessments - Encounter Diagnoses This section includes the primary and secondary diagnoses documented for the Encounter. Date/Time Primary/Secondary Diagnosis Diagnosis Name Provider Source Sep 17, 2024 11:41 AM PRIMARY Age-related nuclear cataract, right eye GEMMA MARIE [facility] Sep 17, 2024 11:41 AM SECONDARY Other disorders of refraction GEMMA MARIE [facility] Sep 17, 2024 11:41 AM SECONDARY Other secondary cataract, left eye GEMMA MARIE [facility] Sep 17, 2024 11:41 AM SECONDARY Presence of intraocular lens GEMMA MARIE [facility] Sep 17, 2024 11:41 AM SECONDARY Puckering of macula, bilateral GEMMA MARIE [facility] Plan of Treatment: Future Appointments (+ 6 months) and Future Tests (+/- 45 days) The Plan of Treatment section includes future care activities for the patient from all [place] treatmentfacilities. This section includes future appointments and future orders which are active, pending or scheduled. Future Appointments This section includes appointments that were scheduled to occur 6 months from the date of the Encounter, up to a maximum of 20 appointments. The data comes from all [place] treatment facilities. Appointment Date/Time Appointment Type Appointme nt Facility Name Oct 11, 2024 10:30 AM AMBULATORY - MEDICINE [facility] Active, Pending, and Scheduled Orders This section includes a listing of several types of active, pending, and scheduled orders, including clinic medications orders, diagnostic test orders, procedure orders and consult orders; where the start date of the order is 45 days before the date of the Encounter or 45 days after the date of theEncounter. The data comes from all [place] treatment facilities. Test Date/Time Test Type Test Details Facility Name Oct 11, 2024 12:00 AM Laboratory - Chemi stry Order URINE DRUG SCREEN (STL) URINE YELLOW SP [facility] Social History: Smoking Status (Most current) and Tobacco Use (All prior to encounter date) This section includes the most current, and the historical, smoking and tobacco- related health factors from the [place] facility where the Encounter took place. Current Smoking Status This section includes the most current smoking, or tobacco-related health factor, from the [place] facility where the Encounter took place. Date/Time Current Smoking Status Comment Riky ity Mar 04, 2021 09:00 AM VA-TOBACCO USER EVERY DAY [facility] Tobacco Use History This section includes a history of the smoking, or tobacco-related health factors, that were collected on or before the date of the Encounter. The data comes from the [place] facility where the Encounter took place. Date/Time Smoking Status/Tobacco Use Comment F acility Mar 04, 2021 09:00 AM VA-TOBACCO USE > 1 5 LESS THAN 30 YEARS [facility] Mar 04, 2021 09:00 AM VA-TOBACCO USE ADVICE [facility] Mar 04, 2021 09:00 AM VA-TOBACCO USE CONCRETE TESTER NO [facility] Mar 04, 2021 09:00 AM VA-TOBACCO USE MED NO [facility] Mar 04, 2021 09:00 AM VA-TOBACCO USER EVERY DAY [facility] Jan 23, 2020 02:53 PM VA-TOBACCO DOESNT USE WI 30 MIN WAKEUP [facility] Jan 23, 2020 02:53 PM VA-TOBACCO USE 5 TO 15 YEARS [facility] Jan 23, 2020 02:53 PM VA-TOBACCO USE ADVICE [facility] Jan 23, 2020 02:53 PM VA-TOBACCO USE CONCRETE TESTER NO [facility] Jan 23, 2020 02:53 PM VA-TOBACCO USE MED NO [facility] Jan 23, 2020 02:53 PM VA-TOBACCO USER EVERY DAY [facility] Mar 14, 2017 09:01 AM CURRENT TOBACCO USER [facility] Mar 14, 2017 09:01 AM TOBACCO MEDS OFFER ED BUT DECLINED [facility] May 31, 2016 10:12 AM CURRENT TOBACCO USER [facility] May 31, 2016 10:12 AM TOBACCO MEDS OFFER ED BUT DECLINED [facility] Advance Directives: All historical and current Section Date Range: From patient's date of to the date document was created. This section includes ALL of a patient's completed or amended VA Advance and Rescinded Directives. The entries below indicate that a directive exists for the patient, but an actual copy is not included with this document. The data comes from all [place] facilities. Date Advance Directives Provider Source Mar 17, 2011 ADVANCE DIRECTIVE DISCUSSION JADE MARTINEZ [facility] Encounter Notes: All associated encounter notes This section contains the clinical notes associated to the Encounter. Date/Time Encounter Note(s) Provider Source Oct 04, 2024 12:45 PM ADDENDUM: LOCAL TITLE: Addendum STANDARD TITLE: ADDENDUM DATE OF NOTE: OCT 04, 2024@12:45:32 ENTRY DATE: OCT 04, 2024@12:45:33 AUTHOR: LAVERN AWAD EXP COSIGNER: URGENCY: STATUS: COMPLETED Given has obtained the Pregabalin in the private sector after discussed with to not do this on 03/30/24 as this is against VA policy this provider will not renew Pregabalin at this time. obtained the Pregabalin at [facility] in [place] 08/23/24, despite telling the RNCM that he did not 10/04/24. Recommend discuss his request further with his private PCP given he is unable to adhere to VA policy. RNCM please notify . Thank you! /lidia/ Lavernbilly Awad DNP, APRN, LAW PROFESSOR-C Primary Care Nurse Practitioner Signed: 10/04/2024 12:50 Receipt Acknowledged By: 10/04/2024 15:45 /es/ Joseph Perry Rn, BSN REGISTERED NURSE === --- Original Document --- 09/27/24 STATE PRESCRIPTION DRUG MONITORING PROGRAM: This PDMP query was submitted by Lavern Awad NP. The clinical justification for this PDMP query is to review controlled substances prescribed outside of the VA, and any additional information that may become available, as an important component of standard clinical care, and in accordance with [facility] policy. Patient information was shared with the PDMP [employer] [place]. Prescription(s) filled outside the VA are noted and will be addressed as follows: Pregabalin has been renewed in the private sector 08/20/24 with 5 refills. RNCM please review that the VA will not refill the Pregabalin at this time due to this. VA guidelines only allows a to obtain a controlled substance from one source. This was reviewed with at PCP appointment 03/30/24. Thank you! /lidia/ Lavern Awad DNP, APRN, LAW PROFESSOR-C Primary Care Nurse Practitioner Signed: 09/27/2024 12:12 Receipt Acknowledged By: 10/04/2024 08:44 /es/ SRIKANTH BOO REGISTERED NURSE 10/04/2024 ADDENDUM STATUS: COMPLETED Mr Desir contacted, informed that controlled substances should come from one source, and the state monitoring program found a non-VA prescription for Pregabalin with 5 refills. Mr. Desir said that the only reason that he had non-VA prescription was because the VA missed refills that he needed and he was going without Pregabalin for a month. He also said the prescription was called to [facility] in [place], but he did not pick-up a bottle from [facility] in [place] He said he wants to get all the pregabalin from VA, but have the non-VA prescription as back-up when the VA screws up. I reminded him of [place] policy-- controlled medicines to come from one source. /lidia/ SRIKANTH BOO REGISTERED NURSE Signed: 10/04/2024 08:52 10/04/2024 ADDENDUM STATUS: COMPLETED [facility] in [place] contacted. Mr. Desir filled prescription there August 23, 2024. /lidia/ SRIKANTH BOO REGISTERED NURSE Signed: 10/04/2024 09:02 Receipt Acknowledged By: 10/04/2024 12:45 /lidia/ aLvern Awad DNP, APRN, FNP-C Primary Care Nurse Practitioner 10/04/2024 ADDENDUM STATUS: UNSIGNED You may not VIEW this UNSIGNED Addendum. LAVERN AWAD [facility] Oct 04, 2024 09:01 AM ADDENDUM: LOCAL TITLE: Addendum STANDARD TITLE: ADDENDUM DATE OF NOTE: OCT 04, 2024@09:01:38 ENTRY DATE: OCT 04, 2024@09:01:38 AUTHOR: SRIKANTH BOO EXP COSIGNER: URGENCY: STATUS: COMPLETED [facility] in [place] contacted. Mr. Desir filled prescription there August 23, 2024. /lidia/ SRIKANTH BOO REGISTERED NURSE Signed: 10/04/2024 09:02 Receipt Acknowledged By: 10/04/2024 12:45 /lidia/ Lavern Awad DNP, APRN, LAW PROFESSOR-C Primary Care Nurse Practitioner === --- Original Document --- 09/27/24 [facility] PRESCRIPTION DRUG MONITORING PROGRAM: This PDMP query was submitted by Lavern Awad DOUGH CATCHER. The clinical justification for this PDMP query is to review controlled substances prescribed outside of the VA, and any additional information that may become available, as an important component of standard clinical care, and in accordance with [facility] policy. Patient information was shared with the PDMP [employer] [place]. Prescription(s) filled outside the VA are noted and will be addressed as follows: Pregabalin has been renewed in the private sector 08/20/24 with 5 refills. RNCM please review that the VA will not refill the Pregabalin at this time due to this. VA guidelines only allows a to obtain a controlled substance from one source. This was reviewed with at PCP appointment 03/30/24. Thank you! /ervin Awad DNP, MANAGEMENT DEVELOPMENT SPECIALIST, LAW PROFESSOR-C Primary Care Nurse Practitioner Signed: 09/27/2024 12:12 Receipt Acknowledged By: 10/04/2024 08:44 /lidia/ SRIKANTH BOO REGISTERED NURSE 10/04/2024 ADDENDUM STATUS: COMPLETED Mr Desir contacted, informed that controlled substances should come from one source, and the state monitoring program found a non-VA prescription for Pregabalin with 5 refills. Mr. Desir said that the only reason that he had non-VA prescription was because the VA missed refills that he needed and he was going without Pregabalin for a month. He also said [facility] [place], but [facility] [place] He said he wants to get all the pregabalin from VA, but have the non-VA prescription as back-up when the VA screws up. I reminded him of VA policy-- controlled medicines to come from one source. /lidia/ SRIKANTH BOO REGISTERED NURSE Signed: 10/04/2024 08:52 SRIKANTH BOO [facility] Sep 27, 2024 12:09 PM ACCOUNTING OF DISC LOSURES NOTE: LOCAL TITLE: STATE PRESCRIPTION DRUG MONITORING PROGRAM STANDARD TITLE: ACCOUNTING OF DISCLOSURES NOTE DATE OF NOTE: SEP 27, 2024@12:09:24 ENTRY DATE: SEP 27, 2024@12:09:24 AUTHOR: LAVERN AWAD COSIGNER: URGENCY: STATUS: COMPLETED [facility] PRESCRIPTION DRUG MONITORING PROGRAM Has ADDENDA This PDMP query was submitted by Lavern Awad DOUGH CATCHER. The clinical justification for this PDMP query is to review controlled substances prescribed outside of the VA, and any additional information that may become available, as an important component of standard clinical care, and in accordance with [facility] policy. Patient information was shared with the PDMP [employer] [place]. Prescription(s) filled outside the VA are noted and will be addressed as follows: Pregabalin has been renewed in the private sector 08/20/24 with 5 refills. RNCM please review that the VA will not refill the Pregabalin at this time due to this. VA guidelines only allows a to obtain a controlled substance from one source. This was reviewed with at PCP appointment 03/30/24. Thank you! /lidia/ Lavern Awad DNP, MANAGEMENT DEVELOPMENT SPECIALIST, LAW PROFESSOR-C Primary Care Nurse Practitioner Signed: 09/27/2024 12:12 Receipt Acknowledged By: 10/04/2024 08:44 /lidia/ SRIKANTH BOO REGISTERED NURSE 10/04/2024 ADDENDUM STATUS: COMPLETED Mr Desir contacted, informed that controlled substances should come from one source, and the state monitoring program found a non-VA prescription for Pregabalin with 5 refills. Mr. Desir said that the only reason that he had non-VA prescription was because the VA missed refills that he needed and he was going without Pregabalin for a month. He also said the prescription was called to [facility] in [place], but he did not pick-up a bottle from [facility] in [place] He said he wants to get all the pregabalin from VA, but have the non-VA prescription as back-up when the VA screws up. I reminded him of VA policy-- controlled medicines to come from one source. /lidia/ SRIKANTH BOO REGISTERED NURSE Signed: 10/04/2024 08:52 10/04/2024 ADDENDUM STATUS: COMPLETED [facility] in [place] contacted. Mr. Desir filled prescription there August 23, 2024. /lidia/ SRIKANTH BOO REGISTERED NURSE Signed: 10/04/2024 09:02 Receipt Acknowledged By: 10/04/2024 12:45 /lidia/ Lavern Awad DNP, APRN, CAREY-C Primary Care Nurse Practitioner 10/04/2024 ADDENDUM STATUS: COMPLETED Given has obtained the Pregabalin in the private sector after discussed with to not do this on 03/30/24 as this is against VA policy this provider will not renew Pregabalin at this time. [place] obtained the Pregabalin at [facility] in [place] 08/23/24, despite telling the RNCM that he did not 10/04/24. Recommend discuss his request further with his private PCP given he is unable to adhere to VA policy. RNCM please notify . Thank you! /ervin Awad DNP, JAMES, LAW PROFESSOR-C Primary Care Nurse Practitioner Signed: 10/04/2024 12:50 Receipt Acknowledged By: 10/04/2024 15:45 /lidia/ Joseph Perry Rn, BSN REGISTERED NURSE 10/04/2024 ADDENDUM STATUS: COMPLETED the pt states that he was out of the medicine and his fill was not yet arrive so he went to his private pcp and got a order and pick it up at [facility] he stated that medicine was for emergency for when the VA and the provider fucks up he will have a supply and wants to get all his medicine from the VA. provider made aware /lidia/ Joseph Perry Rn, BSN REGISTERED NURSE Signed: 10/04/2024 15:48 10/11/2024 ADDENDUM STATUS: COMPLETED This provider contacted [facility] in [place]. [place] picked up a 30 day supply of Pregabalin (90 quantity) on March 24 and August 23 2024. /lidia/ Lavern Awad DNP, MANAGEMENT DEVELOPMENT SPECIALIST, LAW PROFESSOR-C Primary Care Nurse Practitioner Signed: 10/11/2024 09:10 LAVERN AWAD [facility] Sep 17, 2024 11:03 AM OPTOMETRY NOTE: LOCAL TITLE: OPTOMETRY NOTE STANDARD TITLE: OPTOMETRY NOTE DATE OF NOTE: SEP 17, 2024@11:03 ENTRY DATE: SEP 17, 2024@11:03:04 AUTHOR: GEMMA MARIE EXP COSIGNER: URGENCY: STATUS: COMPLETED Last seen: 09/14/2023 Reason for visit: CEE CC: 1. Stable vision - Distance and near - OU - While wearing glasses at least while driving. - Constant. - Denies ocular irritation/pain, double vision, flashes/new floaters. Ocular meds: none Ocular ROS: (-) injuries (-) glaucoma (-) macular degeneration (+) PCIOL OS (+) cataract OD (+) ERM OU (+) hordeolum RLL-Resolved Family OcHX: (-) blindness (-) glaucoma (-) AMD (-) RD Cardiovascular ROS: no change from problem & medication lists CPRS Problem list, medications and allergies reviewed: CPRS Serology for Diabetes GLUCOSE 86 mg/dL 03/31/2023 08:19 HGA1C 5.1 % 03/31/2023 08:19 Cardiovascular BP: 134/80 (03/30/2024 09:14) Pulse: 96 (03/30/2024 09:14) Neuro: Orientation: Normal Psych: Mood/Affect: Normal Depression/suicide ideation: NO VISUAL ACUITY Distance Visual Acuity (x) cc, () sc OD: 20/25 OS: 20/20-1 Pupils ERRL, (-) APD OU Confrontation: FTFC OD/OS Extra-Ocular Muscles Full, (-) pain/DV OU Habitual 09/17/2024 (DVO from 10/26) OD: -1.25 -1.50 x 045 OS: -1.00 -0.75 x 120 ADD: +2.75 Refraction 09/17/2024 OD: -1.00 -1.50 x 051 20/20 OS: -0.75 -0.75 x 120 20/20 ADD: +2.50 20/20 NVA OU at 40cm SLIT LAMP EXAMINATION: L/L: MGD, laxity OU Conj/Sclera: white/quiet, (-) papillae/follicles OU K: all layers clear OU AC: deep/quiet OU Angles: 3x3 VH OU Iris: unremarkable, (-) NVI OU Lens: OD: 1-2+ NSC OS: PCIOL centered with 2+ diffuse PCO (INF>SUP) Intraocular Pressures (Goldmann) 1 gtt fluress OD/OS: OD: OS: Time: Meds: 09/17/2024 15 14 1116 none Dilated c 2 gtts Tropicamide 1% OU @ 1117 Pt educated on temporary effects of dilation drops such as light sensitivity and blurry vision. PostPole: C/D: OD: 0.30 (s=i) OS: 0.40 (cup decentered SUP) ONH: pink and perfuse tissue, (-) NVD OU MAC: flat c even pigmentation, (-) hemes/exudate/DME/CNVM OU OD: mild ERM PARESH and SUP OS: mild ERM PARESH BKGRND: unremarkable, (-) hemes, exudate, CWS, NVE OU VESSELS: unremarkable, 2/3 OU PERIPH: OD: flat and intact, reticular degeneration, (-) holes,tears,breaks 360 OS: flat and intact, reticular degeneration, (-) holes,tears,breaks 360 VIT: syneresis OU ASSESSEMENT/PLAN: 09/17/2024 1. Refractive error/Presbyopia OU - BCVA 20/20 OD and OS. - SRx released today for updating: DVO/NVO. 2. Pseudophakia OS - PCO stable, not limiting vision, and d/w pt sx to be aware of. - YAG not yet indicated given BCVA a/o lack of sx; monitor. 3. Cataract OD - Risk/benefit analysis suggests surgical intervention is not warranted at this time given status of BCVA a/o lack of sx; monitor. 4. Epiretinal Membrane OU - Previously noted. - Stable BCVA and DFE appearance today. - Non-surgical; monitor PRN. FINAL SRx: OD: -1.00 -1.50 x 051 OS: -0.75 -0.75 x 120 (DVO) OD: +1.50 -1.50 x 051 OS: +1.75 -0.75 x 120 (NVO) DISCUSSED ALL ABOVE FINDINGS W/PT; PT EXPRESSED FULL UNDERSTANDING. RTO 12mo/PRN: CEBonny /lidia/ Gemma Marie, DORYS Staff Physician, Optometry Signed: 09/17/2024 11:41 GEMMA MARIE [facility]
--- OUTSIDE RECORDS SUMMARY | 2024-10-16 02:22 | XMS_ITS ---
Author Name [facility] [place] [facility] [place] Address [address] [place] [address] Care Team Providers Care Manager Of Clinical Name Role Phone RUDOLPH AWAD Primary Care [...] Name Patient's Relationship to Policy [place] [employer] [facility] (WNR) MEDICARE ADVANTAGE [facility] (WNR) Oct 03, 2022 [id number] KARLEESunita ILLKELSEY PATIENT ANTHEM [employer] [place] [facility] TRADI JACIEL L Oct 03, 2013 [id number] [phone] KARLEEW ILLKELSEY PATIENT AN[place] COMPREH[place] S[place] [facility] G TRADI JACIEL L Oct 03, 2013 [id number] [phone] KARLEEW ILLKELSEY PATIENT [place] COMPRE[place] S[place] [facility] [facility] G TRADI JACIEL L Oct 03, 2013 [id number] [phone] Sunita DESIR PATIENT [place] [facility] Oct 03, 2013 [id number] [phone] Sunita DESIR PATIENT MEDICARE (WNR) MEDICARE (M) PART B Nov 03, 2009 PART B [id number] KARLEE WARRENJOVANI Sameera PATIENT [facility] (WNR) MEDICARE ADVANTAGE [facility] (WNR) Oct 03, 2020 [id number] Sunita DESIR PATIENT Selected Encounter This section includes the information on record at [place] for the Encounter. Date/Time Encounter Type Encounter Description Reason Pro vider Source Jan 11, 2024 01:28 PM Outpatient Encounter ADMIN PAT ACTIVTIES (MASNONCT) IHE Encounter Template Text not used by [place] Plan of Treatment: Future Appointments (+ 6 months) and Future Tests (+/- 45 days) The Plan of Treatment section includes future care activities for the patient from all [place] treatmentfacilities. This section includes future appointments and future orders which are active, pending or scheduled. Future Appointments This section includes appointments that were scheduled to occur 6 months from the date of the Encounter, up to a maximum of 20 appointments. The data comes from all [place] treatment facilities. Appointment Date/Time Appointment Type Appointme nt Facility Name Mar 30, 2024 09:30 AM AMBULATORY - MEDICINE [facility] Social History: Smoking Status (Most current) and Tobacco Use (All prior to encounter date) This section includes the most current, and the historical, smoking and tobacco- related health factors from the [place] facility where the Encounter took place. Current Smoking Status This section includes the most current smoking, or tobacco-related health factor, from the [place] facility where the Encounter took place. Date/Time Current Smoking Status Comment Facil ity Sep 27, 2023 01:41 PM VA-TOBACCO USER EVERY DAY [facility] Tobacco Use History This section includes a history of the smoking, or tobacco-related health factors, that were collected on or before the date of the Encounter. The data comes from the [place] facility where the Encounter took place. Date/Time Smoking Status/Tobacco Use Comment F acility Sep 27, 2023 01:41 PM VA-TOBACCO USE 30 YEARS OR MORE [facility] Sep 27, 2023 01:41 PM VA-TOBACCO USE ADVICE [facility] Sep 27, 2023 01:41 PM VA-TOBACCO USE REPAIRER W[employer] AND EQUIPMENT NO [facility] Sep 27, 2023 01:41 PM VA-TOBACCO USE MED NO [facility] Sep 27, 2023 01:41 PM VA-TOBACCO USER EVERY DAY [facility] Advance Directives: All historical and current Section Date Range: From patient's date of to the date document was created. This section includes ALL of a patient's completed or amended [place] Advance and Rescinded Directives. The entries below indicate that a directive exists for the patient, but an actual copy is not included with this document. The data comes from all [place] facilities. Date Advance Directives Provider Source Mar 17, 2011 ADVANCE DIRECTIVE DISCUSSION JADE MARTINEZ [facility] Encounter Notes: All associated encounter notes This section contains the clinical notes associated to the Encounter. Date/Time Encounter Note(s) Provider Source Jan 11, 2024 01:28 PM ADMINISTRATIVE NOT E: LOCAL TITLE: CONTACT NOTE ST STANDARD TITLE: ADMINISTRATIVE NOTE DATE OF NOTE: JAN 11, 2024@13:28 ENTRY DATE: JAN 11, 2024@13:28:26 AUTHOR: [place] COSIGNER: URGENCY: STATUS: COMPLETED Veterans name and last 4 were used to verify identity Verified Veterans telephone #/Updated telephone number in the system REASON FOR CALL: Other: Reason for call: patient calling back [employer] HAND alerting Liz /lidia/ LULU RIEVR [employer] S[employer]Y TECHNICIAN Signed: 01/11/2024 13:28 Receipt Acknowledged By: 01/16/2024 12:50 /lidia/ CHANELLE RAMOS LPN LICENSED PRACITCAL NURSE [place] [facility]
--- OUTSIDE RECORDS SUMMARY | 2024-10-16 02:22 | XMS_ITS | Continuity of Care Document ---
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 It does not include entries that were removed or entered in error. Problem Status Onset Date Problem Type Date of Resolution Comments Source Transient cerebral ischemia Active 2 Condition [facility] Decreased vitamin B12 level (SNOMED CT 105545275) Active Condition [facility] Erectile dysfunction (SNOMED CT 906895996) Active Condition [facility] Gout Active Condition [facility] Hyperlipidemia Active Condition [facility] Peripheral neuropathy (SNOMED CT 744425388) Active Condition February 09, 2011 Entered By: JADE MARTINEZ A Comment: diagnosed about 3 years ago [facility] Posttraumatic stress disorder Active Condition [facility] Prediabetes Active Condition [facility] Skin eruption Active Condition [facility] Tinnitus Active Condition [facility] Tobacco use Active Condition [facility] Vitamin D deficiency (SNOMED CT 60105207) Active Condition [facility] Chronic low back pain (SNOMED CT 932500285) Inactive Condition 09/30/2023 Nov 14, 2013 Entered By: JADE MARTINEZ A Comment: on SS disability 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 Diagnosis: ICD-10-CM E78.5 Hyperlipidemia, unspecified Active Diagnosis [facility] Diagnosis: ICD-10-CM H25.11 Age-related nuclear cataract, right eye Active Diagnosis [facility] Medications Combined list of outpatient medications from Department of Defense and Veterans Affairs facilities.Medications provided include 1) outpatient medications from the last 15 months, and 2) patient-reported medications. Medication Details Route Status Patient Instructions Prescription Expires Prescription Number Last Dispense Date Ordering Provider Order Date Order Qty Source ALLOPURINOL 300MG TAB TAKE ONE TABLET BY MOUTH ONCE A DAY ORAL ACTIVE AWAD,SHE LBY R 2024 [facility] ASPIRIN 81MG TAB,EC TAKE ONE TABLET BY MOUTH ONCE A DAY ORAL ACTIVE AWAD,SHE LBY R 2024 [facility] ATORVASTATI N CA 80MG TAB TAKE ONE-HALF TABLET BY MOUTH EVERY EVENING ORAL ACTIVE AWAD,SHE LBY R 2024 [facility] CHOLECALCIF LASHAWN 50MCG (2,000UNIT) TAB TAKE TWO TABLETS BY MOUTH ONCE A DAY ORAL ACTIVE EZEKIEL MARTINEZ 2010 [facility] CLOPIDOGREL BISULFATE 75MG TAB TAKE ONE TABLET BY MOUTH ONCE A DAY ORAL ACTIVE AWAD,SHE LBShruti R 2024 [facility] CYANOCOBALA MIN 1000MCG TAB TAKE ONE TABLET BY MOUTH ONCE A DAY ORAL ACTIVE AWAD,SHE LBY R 2024 [facility] DICLOFENAC NA 75MG TAB,EC TAKE ONE TABLET BY MOUTH EVERY MORNING AND EVENING ORAL ACTIVE AWAD,SHE TONYA R 2024 [facility] FENOFIBRATE TAB TAKE 54 MG BY MOUTH ONCE A DAY ORAL ACTIVE RITESH,SHE LBY R 2024 [facility] GARLIC OIL TAB,EC TAKE ONE TABLET BY MOUTH ORAL ACTIVE AWAD,SHE LBY R 2022 [facility] PREGABALIN 150MG CAP,ORAL TAKE ONE CAPSULE BY MOUTH THREE TIMES A DAY FOR NEUROPAT HIC PAIN. *MAY CAUSE DROWSINE SS* ORAL DISCONT INUED BY PROVIDE R 09/20/2024 [id number] RITESH,SHE TONYA R 2023 90 [facility] PREGABALIN 150MG CAP,ORAL TAKE ONE CAPSULE BY MOUTH THREE TIMES A DAY FOR NEUROPAT HIC PAIN. *MAY CAUSE DROWSINE SS* ORAL DISCONT INUED 07/25/2024 [id number] 4 Hayden CABRERA SYLVIASTEWARTBonny 2023 90 [facility] PREGABALIN 150MG CAP,ORAL TAKE ONE CAPSULE BY MOUTH THREE TIMES A DAY FOR NEUROPAT HIC PAIN. *MAY CAUSE DROWSINE SS* ORAL DISCONT INUED 06/13/2024 [id number] 4 KELY AWAD R 2023 90 [facility] PREGABALIN 150MG CAP,ORAL TAKE ONE CAPSULE BY MOUTH THREE TIMES A DAY FOR NEUROPAT HIC PAIN. *MAY CAUSE DROWSINE SS* ORAL DISCONT INUED 05/09/2024 [id number] 4 KELY AWAD R 2023 90 [facility] PREGABALIN 150MG CAP,ORAL TAKE ONE CAPSULE BY MOUTH THREE TIMES A DAY FOR NEUROPAT HIC PAIN. *MAY CAUSE DROWSINE SS* ORAL DISCONT INUED 01/21/2024 [id number] 4 KELY AWAD R 2023 90 [facility] PREGABALIN 150MG CAP,ORAL TAKE ONE CAPSULE BY MOUTH THREE TIMES A DAY FOR NEUROPAT HIC PAIN. *MAY CAUSE DROWSINE SS* ORAL DISCONT INUED 12/16/2023 [id number] 4 KELY AWAD R 2023 90 [facility] PREGABALIN 150MG CAP,ORAL TAKE ONE CAPSULE BY MOUTH THREE TIMES A DAY FOR NEUROPAT HIC PAIN. *MAY CAUSE DROWSINE SS* ORAL DISCONT INUED 11/03/2023 [id number] 4 KELY AWAD R 2023 90 [facility] PREGABALIN 150MG CAP,ORAL TAKE ONE CAPSULE BY MOUTH THREE TIMES A DAY FOR NEUROPAT HIC PAIN. *MAY CAUSE DROWSINE SS* ORAL DISCONT INUED 09/25/2023 [id number] 3 KELY AWAD R 2022 90 [facility] PREGABALIN 150MG CAP,ORAL TAKE ONE CAPSULE BY MOUTH THREE TIMES A DAY FOR NEUROPAT HIC PAIN. *MAY CAUSE DROWSINE SS* ORAL DISCONT INUED 08/18/2023 [id number] 3 KELY AWAD R 2022 90 [facility] PREGABALIN 150MG CAP,ORAL TAKE 1 CAPSULE BY MOUTH THREE TIMES A DAY ORAL ACTIVE KELY AWAD R 2023 [facility] SILDENAFIL CITRATE 100MG TAB TAKE ONE TABLET BY MOUTH EVERY WEEK NEEDED FOR ERECTILE DYSFUNCT ION (TAKE 60 MINUTES PRIOR TO SEXUAL ACTIVITY ) - LIMIT 6 DOSES PER 30 DAYS ORAL ACTIVE 03/31/2025 [id number] 4 KELY AWAD R 2023 18 [facility] SILDENAFIL CITRATE 100MG TAB TAKE ONE TABLET BY MOUTH EVERY WEEK NEEDED FOR ERECTILE DYSFUNCT ION (TAKE 60 MINUTES PRIOR TO SEXUAL ACTIVITY ) - LIMIT 6 DOSES PER 30 DAYS ORAL DISCONT INUED 04/06/2024 [id number] 3 KELY AWAD R 2022 18 [facility] Allergies, Adverse Reactions, Alerts Combined list of allergies from Department of Defense and Veterans Affairs facilities. It does not include entries that were removed or entered in error. Substance Category Reaction Severity Reaction type Status Date Reported Comments Source SERTRALINE Propensity to adverse reactions to drug (finding) Diarrhea active 6 [facility] Immunizations Combined list of available immunizations from the Department of Defense and Veterans Affairs facilities. Immunization Series Date Given Administered By Site Reaction Lot Number CVX Code Drug Sander Hand Status Comments Source COVID-19 (PFIZER), MRNA, LNP-S, PF, ASHANTI-SUCROSE, 30 MCG/0.3 ML (AGES 12+ YEARS) 5 2023 309 complet ed [facility] INFLUENZA, HIGH-DOSE, TRIVALENT, PF 1 2023 135 complet ed [facility] (MODERNA), MRNA, LNP-S, PF, 50 MCG/0.5 ML (AGES 12+ YEARS) 1 2022 SANDRA RAMOS RIGHT DEL[place] ID [id number] 312 complet ed [facility] INFLUENZA, HIGH-DOSE, QUADRIVALENT, PF 1 2022 197 complet ed [facility] INFLUENZA, UNSPECIFIED FORMULATION 2022 88 complet ed [facility] INFLUENZA, HIGH-DOSE, QUADRIVALENT, PF 1 2021 197 complet ed [facility] PNEUMOCOCCAL POLYSACCHARID E PPV23 2 2021 33 complet ed [facility] COVID-[facility] (MODERNA), MRNA, LNP-S, PF, 100 MCG/0.5ML DOSE OR 50 MCG/0.25ML DOSE 3 2021 207 complet ed MOD; [id number]; 2 [facility] ZOSTER RECOMBINANT 2 2021 187 complet ed [facility] COVID-19 (PFIZER), MRNA, LNP-S, PF, 30 MCG/0.3 ML DOSE 3 2020 208 complet ed PFR; [id number]; 1 [facility] PNEUMOCOCCAL POLYSACCHARID E PPV23 1 2020 33 complet ed [facility] ZOSTER RECOMBINANT 1 2020 187 complet ed [facility] INFLUENZA, HIGH-DOSE, QUADRIVALENT, PF 1 2020 197 complet ed [facility] COVID-19 (PFIZER), MRNA, LNP-S, PF, 30 MCG/0.3 ML DOSE 2 2020 208 complet ed PFR; [id number]; 1 [facility] COVID-19 (PFIZER), MRNA, LNP-S, PF, 30 MCG/0.3 ML DOSE 1 2020 208 complet ed PFR; [id number]; 1 [facility] INFLUENZA, HIGH-DOSE, QUADRIVALENT 2019 197 complet ed [facility] Administe red by: [facility] (NPI=Not Provided) . Partner 7 Lot#: [id number] Mfr: sanofi pasteur; Dosage: [id number] ml [facility] INFLUENZA, UNSPECIFIED FORMULATION 2019 88 complet ed [facility] INFLUENZA, UNSPECIFIED FORMULATION 2018 88 complet ed [facility] INFLUENZA, TRIVALENT, ADJUVANTED 2018 168 complet ed [facility]. Administe red by: [facility] (NPI=Not Provided) . Partner 7 Lot#: [id number] Mfr: Bellybaloo [facility] INFLUENZA, INJECTABLE, QUADRIVALENT, PRESERVATIVE FREE 2017 150 complet ed Partner: [facility]. Administe red by: [facility] (NPI=Not Provided) . Partner 7 Lot#: [id number] Mfr: [employer] [place] [facility] INFLUENZA, SPLIT VIRUS, QUADRIVALENT, PF 2 2017 150 complet ed [facility] INFLUENZA, HIGH-DOSE, TRIVALENT, PF 1 2017 135 complet ed [facility] TDAP 2017 115 complet ed Right Deltoid [facility] TD (ADULT), 2 LF TETANUS TOXOID, PRESERVATIVE FREE, ADSORBED 1 2017 09 complet ed [facility] INFLUENZA, HIGH-DOSE, TRIVALENT, PF 1 2016 135 complet ed [facility] INFLUENZA, UNSPECIFIED FORMULATION 2016 88 complet ed [facility] INFLUENZA, UNSPECIFIED FORMULATION 2015 88 complet ed [facility] NOVEL INFLUENZA-H1N 1-09, ALL FORMULATIONS 1 2015 128 complet ed [facility] PNEUMOCOCCAL POLYSACCHARID E PPV23 2015 33 complet ed [facility] PNEUMOCOCCAL CONJUGATE PCV 13 2014 133 complet ed [facility] INFLUENZA, UNSPECIFIED FORMULATION 2014 88 complet ed [facility] INFLUENZA, HIGH-DOSE, TRIVALENT, PF 1 2014 135 complet ed [facility] INFLUENZA, UNSPECIFIED FORMULATION 2013 88 complet ed [facility] INFLUENZA, UNSPECIFIED FORMULATION 2013 88 complet ed [facility] INFLUENZA, UNSPECIFIED FORMULATION 2012 88 complet ed [place] INFLUENZA, UNSPECIFIED FORMULATION 2012 88 complet ed [facility] INFLUENZA, UNSPECIFIED FORMULATION 2012 88 complet ed [facility] INFLUENZA, UNSPECIFIED FORMULATION 2011 88 complet ed [facility] ZOSTER LIVE 2011 121 complet ed [facility] INFLUENZA, UNSPECIFIED FORMULATION 2010 88 complet ed [facility] INFLUENZA, UNSPECIFIED FORMULATION 2010 88 complet ed [facility] INFLUENZA, UNSPECIFIED FORMULATION 2009 88 complet ed [place] TDAP 2007 115 complet ed [place] Results Combined list of recent chemistry, hematology and other laboratory results from Department of Defense and Veterans Affairs, ranging from 15 months to all on record, depending upon the facility. Order Name Results Value Reference Range Date Interpretation Specimen Comments Source METHLINSEY E PANEL (STL) ETHANOL [MASS/VOLU ME] IN URINE 55-POSmg /dL 0 - 20 04/09 H Specimen Type: URINE Comment: The cut-off value for this test was laboratory developed and its performance characteris tics confirmed by the [facility] laboratory thru method comparison with reference laboratory and medication chart review. The laboratory is regulated under CLIA as qualified to perform high-comple xity testing. This test is used for clinical purposes in conjunction with other laboratory tests. Ordering Provider: JAIME AWAD Report Released Date/Time: Mar 30, 2024 09:55 AM Reporting Lab: [facility] [address] [phone] Performing Lab: [facility] [address] [address] [facility] METHADON E PANEL (STL) AMPHETAMIN E [PRESENCE] IN URINE BY SCREEN METHOD Negative ng/mL 04/09 Specimen Type: URINE Comment: The cut-off value for this test was laboratory developed and its performance characteris tics confirmed by the [facility] laboratory thru method comparison with reference laboratory and medication chart review. The laboratory is regulated under CLIA as qualified to perform high-comple xity testing. This test is used for clinical purposes in conjunction with other laboratory tests. Ordering Provider: JAIME AWAD Report Released Date/Time: Mar 30, 2024 09:55 AM Reporting Lab: [facility] [address] [place] [phone] Performing Lab: [place] [address] [place] [address] [facility] METHADON E PANEL (STL) BENZOYLECG ONINE [PRESENCE] IN URINE Negative ng/mL 04/09 Specimen Type: URINE Comment: The cut-off value for this test was laboratory developed and its performance characteris tics confirmed by the [facility] laboratory thru method comparison with reference laboratory and medication chart review. The laboratory is regulated under CLIA as qualified to perform high-comple xity testing. This test is used for clinical purposes in conjunction with other laboratory tests. Ordering Provider: JAIME AWAD Report Released Date/Time: Mar 30, 2024 09:55 AM Reporting Lab: [facility] [address] [place] [address] Performing Lab: [facility] [address] [phone] [facility] METHADON E PANEL (STL) BENZODIAZE PINES [PRESENCE] IN URINE BY SCREEN METHOD Negative ng/mL 04/09 Specimen Type: URINE Comment: The cut-off value for this test was laboratory developed and its performance characteris tics confirmed by the [facility] laboratory thru method comparison with reference laboratory and medication chart review. The laboratory is regulated under CLIA as qualified to perform high-comple xity testing. This test is used for clinical purposes in conjunction with other laboratory tests. Ordering Provider: JAIME AWAD Report Released Date/Time: Mar 30, 2024 09:55 AM Reporting Lab: [facility] [address] [place] [address] Performing Lab: [address] [phone] [facility] METHADON E PANEL (STL) CANNABINOI DS [PRESENCE] IN URINE BY SCREEN METHOD Negative ng/mL 04/09 Specimen Type: URINE Comment: The cut-off value for this test was laboratory developed and its performance characteris tics confirmed by the [facility] laboratory thru method comparison with reference laboratory and medication chart review. The laboratory is regulated under CLIA as qualified to perform high-comple xity testing. This test is used for clinical purposes in conjunction with other laboratory tests. Ordering Provider: JAIME AWAD Report Released Date/Time: Mar 30, 2024 09:55 AM Reporting Lab: [facility] [address] [place] [phone] Performing Lab: [facility] [address] [place] [phone] [facility] METHADON E PANEL (STL) METHADONE [PRESENCE] IN URINE Negative ng/mL 04/09 Specimen Type: URINE Comment: The cut-off value for this test was laboratory developed and its performance characteris tics confirmed by the [facility] laboratory thru method comparison with reference laboratory and medication chart review. The laboratory is regulated under CLIA as qualified to perform high-comple xity testing. This test is used for clinical purposes in conjunction with other laboratory tests. Ordering Provider: JAIME AWAD Report Released Date/Time: Mar 30, 2024 09:55 AM Reporting Lab: [facility] [address] [place] [phone] Performing Lab: [facility] [address] [place] [phone] [facility] METHADON E PANEL (STL) OPIATES [PRESENCE] IN URINE BY SCREEN METHOD Negative ng/mL 04/09 Specimen Type: URINE Comment: The cut-off value for this test was laboratory developed and its performance characteris tics confirmed by the [facility] laboratory thru method comparison with reference laboratory and medication chart review. The laboratory is regulated under CLIA as qualified to perform high-comple xity testing. This test is used for clinical purposes in conjunction with other laboratory tests. Ordering Provider: JAIME AWAD Report Released Date/Time: Mar 30, 2024 09:55 AM Reporting Lab: [facility] [address] [place] [address] Performing Lab: [address] [phone] [facility] METHADON E PANEL (STL) CREATININE [MASS/VOLU ME] IN URINE 98.8 mg/dL 63 - 166 04/09 Specimen Type: URINE Comment: The cut-off value for this test was laboratory developed and its performance characteris tics confirmed by the [facility] laboratory thru method comparison with reference laboratory and medication chart review. The laboratory is regulated under CLIA as qualified to perform high-comple xity testing. This test is used for clinical purposes in conjunction with other laboratory tests. Ordering Provider: JAIME AWAD Report Released Date/Time: Mar 30, 2024 09:55 AM Reporting Lab: [facility] [address] [facility] [place] [phone] Performing Lab: [facility] [address] [place] [phone] [facility] METHADON E PANEL (STL) OXYCODONE CUTOFF [MASS/VOLU ME] IN URINE FOR SCREEN METHOD Negative ng/mL 04/09 Specimen Type: URINE Comment: The cut-off value for this test was laboratory developed and its performance characteris tics confirmed by the [facility] laboratory thru method comparison with reference laboratory and medication chart review. The laboratory is regulated under CLIA as qualified to perform high-comple xity testing. This test is used for clinical purposes in conjunction with other laboratory tests. Ordering Provider: JAIME AWAD Report Released Date/Time: Mar 30, 2024 09:55 AM Reporting Lab: [address] [phone] Performing Lab: [address] [phone] [facility] METHADON E PANEL (STL) BUPRENORPH INE [PRESENCE] IN URINE Negative 04/09 Specimen Type: URINE Comment: The cut-off value for this test was laboratory developed and its performance characteris tics confirmed by the [facility] laboratory thru method comparison with reference laboratory and medication chart review. The laboratory is regulated under CLIA as qualified to perform high-comple xity testing. This test is used for clinical purposes in conjunction with other laboratory tests. Ordering Provider: JAIME AWAD Report Released Date/Time: Mar 30, 2024 09:55 AM Reporting Lab: [address] [phone] Performing Lab: [address] [phone] [facility] METHADON E PANEL (STL) FENTANYL [PRESENCE] IN URINE Negative ng/mL 04/09 Specimen Type: URINE Comment: The cut-off value for this test was laboratory developed and its performance characteris tics confirmed by the [facility] laboratory thru method comparison with reference laboratory and medication chart review. The laboratory is regulated under CLIA as qualified to perform high-comple xity testing. This test is used for clinical purposes in conjunction with other laboratory tests. Ordering Provider: JAIME AWAD Report Released Date/Time: Mar 30, 2024 09:55 AM Reporting Lab: [address] [phone] Performing Lab: [address] [phone] [place] [address] METHADON E PANEL (STL) ETHANOL [MASS/VOLU ME] IN URINE 28-POSmg /dL 0 - 20 09/30 H Specimen Type: URINE Comment: The cut-off value for this test was laboratory developed and its performance characteris tics confirmed by the [facility] laboratory thru method comparison with reference laboratory and medication chart review. The laboratory is regulated under CLIA as qualified to perform high-comple xity testing. This test is used for clinical purposes in conjunction with other laboratory tests. Ordering Provider: JAIME AWAD Report Released Date/Time: Aug 26, 2023 09:14 AM Reporting Lab: [address] [phone] Performing Lab: [address] [phone] [place] [address] METHADON E PANEL (STL) AMPHETAMIN E [PRESENCE] IN URINE BY SCREEN METHOD Negative ng/mL 09/30 Specimen Type: URINE Comment: The cut-off value for this test was laboratory developed and its performance characteris tics confirmed by the [facility] laboratory thru method comparison with reference laboratory and medication chart review. The laboratory is regulated under CLIA as qualified to perform high-comple xity testing. This test is used for clinical purposes in conjunction with other laboratory tests. Ordering Provider: JAIME AWAD Report Released Date/Time: Aug 26, 2023 09:14 AM Reporting Lab: [address] [phone] Performing Lab: [address] [phone] [facility] METHADON E PANEL (STL) BENZOYLECG ONINE [PRESENCE] IN URINE Negative ng/mL 09/30 Specimen Type: URINE Comment: The cut-off value for this test was laboratory developed and its performance characteris tics confirmed by the [facility] laboratory thru method comparison with reference laboratory and medication chart review. The laboratory is regulated under CLIA as qualified to perform high-comple xity testing. This test is used for clinical purposes in conjunction with other laboratory tests. Ordering Provider: JAIME AWAD Report Released Date/Time: Aug 26, 2023 09:14 AM Reporting Lab: [facility] [address] [address] Performing Lab: [facility] [address] [facility] [place] [address] [facility] METHADON E PANEL (STL) BENZODIAZE PINES [PRESENCE] IN URINE BY SCREEN METHOD Negative ng/mL 09/30 Specimen Type: URINE Comment: The cut-off value for this test was laboratory developed and its performance characteris tics confirmed by the [facility] laboratory thru method comparison with reference laboratory and medication chart review. The laboratory is regulated under CLIA as qualified to perform high-comple xity testing. This test is used for clinical purposes in conjunction with other laboratory tests. Ordering Provider: JAIME AWAD Report Released Date/Time: Aug 26, 2023 09:14 AM Reporting Lab: [facility] [address] [facility] [place] [phone] Performing Lab: [facility] [address] [facility] [place] [address] [facility] METHADON E PANEL (STL) CANNABINOI DS [PRESENCE] IN URINE BY SCREEN METHOD Negative ng/mL 09/30 Specimen Type: URINE Comment: The cut-off value for this test was laboratory developed and its performance characteris tics confirmed by the [facility] laboratory thru method comparison with reference laboratory and medication chart review. The laboratory is regulated under CLIA as qualified to perform high-comple xity testing. This test is used for clinical purposes in conjunction with other laboratory tests. Ordering Provider: JAIME AWAD Report Released Date/Time: Aug 26, 2023 09:14 AM Reporting Lab: [facility] [address] [facility] [place] [address] Performing Lab: [facility] [address] [facility] [place] [address] [facility] METHADON E PANEL (STL) METHADONE [PRESENCE] IN URINE Negative ng/mL 09/30 Specimen Type: URINE Comment: The cut-off value for this test was laboratory developed and its performance characteris tics confirmed by the [facility] laboratory thru method comparison with reference laboratory and medication chart review. The laboratory is regulated under CLIA as qualified to perform high-comple xity testing. This test is used for clinical purposes in conjunction with other laboratory tests. Ordering Provider: JAIME AWAD Report Released Date/Time: Aug 26, 2023 09:14 AM Reporting Lab: [address] [address] Performing Lab: [facility] [address] [facility] [place] [address] [facility] METHADON E PANEL (STL) OPIATES [PRESENCE] IN URINE BY SCREEN METHOD Negative ng/mL 09/30 Specimen Type: URINE Comment: The cut-off value for this test was laboratory developed and its performance characteris tics confirmed by the [facility] laboratory thru method comparison with reference laboratory and medication chart review. The laboratory is regulated under CLIA as qualified to perform high-comple xity testing. This test is used for clinical purposes in conjunction with other laboratory tests. Ordering Provider: JAIME AWAD Report Released Date/Time: Aug 26, 2023 09:14 AM Reporting Lab: [facility] [address] [facility] [place] [address] Performing Lab: [facility] [address] [facility] [place] [address] [facility] METHADON E PANEL (STL) CREATININE [MASS/VOLU ME] IN URINE 127.2 mg/dL 63 - 166 09/30 Specimen Type: URINE Comment: The cut-off value for this test was laboratory developed and its performance characteris tics confirmed by the [facility] laboratory thru method comparison with reference laboratory and medication chart review. The laboratory is regulated under CLIA as qualified to perform high-comple xity testing. This test is used for clinical purposes in conjunction with other laboratory tests. Ordering Provider: JAIME AWAD Report Released Date/Time: Aug 26, 2023 09:14 AM Reporting Lab: [facility] [address] [facility] [place] [place] [address] Performing Lab: [facility] [address] [place] [phone] [facility] METHADON E PANEL (STL) OXYCODONE CUTOFF [MASS/VOLU ME] IN URINE FOR SCREEN METHOD Negative ng/mL 09/30 Specimen Type: URINE Comment: The cut-off value for this test was laboratory developed and its performance characteris tics confirmed by the [facility] laboratory thru method comparison with reference laboratory and medication chart review. The laboratory is regulated under CLIA as qualified to perform high-comple xity testing. This test is used for clinical purposes in conjunction with other laboratory tests. Ordering Provider: JAIME AWAD Report Released Date/Time: Aug 26, 2023 09:14 AM Reporting Lab: [place] [address] [facility] [place] [address] Performing Lab: [address] [address] [facility] METHADON E PANEL (STL) BUPRENORPH INE [PRESENCE] IN URINE Negative 09/30 Specimen Type: URINE Comment: The cut-off value for this test was laboratory developed and its performance characteris tics confirmed by the [facility] laboratory thru method comparison with reference laboratory and medication chart review. The laboratory is regulated under CLIA as qualified to perform high-comple xity testing. This test is used for clinical purposes in conjunction with other laboratory tests. Ordering Provider: JAIME AWAD Report Released Date/Time: Aug 26, 2023 09:14 AM Reporting Lab: [facility] [address] [facility] [place] [place] [address] Performing Lab: [address] [address] [facility] METHADON E PANEL (STL) FENTANYL [PRESENCE] IN URINE Negative ng/mL 09/30 Specimen Type: URINE Comment: The cut-off value for this test was laboratory developed and its performance characteris tics confirmed by the [facility] laboratory thru method comparison with reference laboratory and medication chart review. The laboratory is regulated under CLIA as qualified to perform high-comple xity testing. This test is used for clinical purposes in conjunction with other laboratory tests. Ordering Provider: JAIME AWAD Report Released Date/Time: Aug 26, 2023 09:14 AM Reporting Lab: [address] [address] Performing Lab: [address] [phone] [place] [address] HGA1C HEMOGLOBIN A1C/HEMOGL OBIN.TOTAL IN BLOOD 5.1 4.0 - 6.0 03/31 Specimen Type: BLOOD Comment: The cut-off value for this test was laboratory developed and its performance characteris tics confirmed by the [facility] laboratory thru method comparison with reference laboratory and medication chart review. The laboratory is regulated under CLIA as qualified to perform high-comple xity testing. This test is used for clinical purposes in conjunction with other laboratory tests. Ordering Provider: JAIME AWAD Report Released Date/Time: Mar 30, 2023 04:37 PM Reporting Lab: [facility] [place] [address] Performing Lab: [address] [address] [facility] METHADON E PANEL (STL) ETHANOL [MASS/VOLU ME] IN URINE Negative mg/dL 0 - 20 03/31 Specimen Type: URINE Comment: The cut-off value for this test was laboratory developed and its performance characteris tics confirmed by the [facility] laboratory thru method comparison with reference laboratory and medication chart review. The laboratory is regulated under CLIA as qualified to perform high-comple xity testing. This test is used for clinical purposes in conjunction with other laboratory tests. Ordering Provider: JAIME AWAD Report Released Date/Time: Mar 30, 2023 12:01 PM Reporting Lab: [place] [address] [facility] [place] [address] Performing Lab: [place] [address] [facility] [place] [address] [facility] METHADON E PANEL (STL) AMPHETAMIN E [PRESENCE] IN URINE BY SCREEN METHOD Negative ng/mL 03/31 Specimen Type: URINE Comment: The cut-off value for this test was laboratory developed and its performance characteris tics confirmed by the [facility] laboratory thru method comparison with reference laboratory and medication chart review. The laboratory is regulated under CLIA as qualified to perform high-comple xity testing. This test is used for clinical purposes in conjunction with other laboratory tests. Ordering Provider: JAIME AWAD Report Released Date/Time: Mar 30, 2023 12:01 PM Reporting Lab: [place] [address] [facility] [place] [address] Performing Lab: [place] [address] [facility] [place] [address] [facility] METHADON E PANEL (STL) BENZOYLECG ONINE [PRESENCE] IN URINE Negative ng/mL 03/31 Specimen Type: URINE Comment: The cut-off value for this test was laboratory developed and its performance characteris tics confirmed by the [facility] laboratory thru method comparison with reference laboratory and medication chart review. The laboratory is regulated under CLIA as qualified to perform high-comple xity testing. This test is used for clinical purposes in conjunction with other laboratory tests. Ordering Provider: JAIME AWAD Report Released Date/Time: Mar 30, 2023 12:01 PM Reporting Lab: [place] [address] [facility] [place] [address] Performing Lab: [address] [address] [facility] METHADON E PANEL (STL) BENZODIAZE PINES [PRESENCE] IN URINE BY SCREEN METHOD Negative ng/mL 03/31 Specimen Type: URINE Comment: The cut-off value for this test was laboratory developed and its performance characteris tics confirmed by the [facility] laboratory thru method comparison with reference laboratory and medication chart review. The laboratory is regulated under CLIA as qualified to perform high-comple xity testing. This test is used for clinical purposes in conjunction with other laboratory tests. Ordering Provider: JAIME AWAD Report Released Date/Time: Mar 30, 2023 12:01 PM Reporting Lab: [facility] [address] [facility] [place] [address] Performing Lab: [facility] [address] [facility] [place] [address] [facility] METHADON E PANEL (STL) CANNABINOI DS [PRESENCE] IN URINE BY SCREEN METHOD Negative ng/mL 03/31 Specimen Type: URINE Comment: The cut-off value for this test was laboratory developed and its performance characteris tics confirmed by the [facility] laboratory thru method comparison with reference laboratory and medication chart review. The laboratory is regulated under CLIA as qualified to perform high-comple xity testing. This test is used for clinical purposes in conjunction with other laboratory tests. Ordering Provider: JAIME AWAD Report Released Date/Time: Mar 30, 2023 12:01 PM Reporting Lab: [place] [address] [facility] [place] [address] Performing Lab: [place] [address] [facility] [place] [address] [facility] METHADON E PANEL (STL) METHADONE [PRESENCE] IN URINE Negative ng/mL 03/31 Specimen Type: URINE Comment: The cut-off value for this test was laboratory developed and its performance characteris tics confirmed by the [facility] laboratory thru method comparison with reference laboratory and medication chart review. The laboratory is regulated under CLIA as qualified to perform high-comple xity testing. This test is used for clinical purposes in conjunction with other laboratory tests. Ordering Provider: JAIME AWAD Report Released Date/Time: Mar 30, 2023 12:01 PM Reporting Lab: [place] [address] [facility] [place] [address] Performing Lab: [place] [address] [facility] [place] [address] [facility] METHADON E PANEL (STL) OPIATES [PRESENCE] IN URINE BY SCREEN METHOD Negative ng/mL 03/31 Specimen Type: URINE Comment: The cut-off value for this test was laboratory developed and its performance characteris tics confirmed by the [facility] laboratory thru method comparison with reference laboratory and medication chart review. The laboratory is regulated under CLIA as qualified to perform high-comple xity testing. This test is used for clinical purposes in conjunction with other laboratory tests. Ordering Provider: JAIME AWAD Report Released Date/Time: Mar 30, 2023 12:01 PM Reporting Lab: [address] [address] Performing Lab: [address] [address] [facility] METHADON E PANEL (STL) CREATININE [MASS/VOLU ME] IN URINE 61.4 mg/dL 63 - 166 03/31 L Specimen Type: URINE Comment: The cut-off value for this test was laboratory developed and its performance characteris tics confirmed by the [facility] laboratory thru method comparison with reference laboratory and medication chart review. The laboratory is regulated under CLIA as qualified to perform high-comple xity testing. This test is used for clinical purposes in conjunction with other laboratory tests. Ordering Provider: JAIME AWAD Report Released Date/Time: Mar 30, 2023 12:01 PM Reporting Lab: [address] [address] Performing Lab: [address] [phone] [facility] METHADON E PANEL (STL) OXYCODONE CUTOFF [MASS/VOLU ME] IN URINE FOR SCREEN METHOD Negative ng/mL 03/31 Specimen Type: URINE Comment: The cut-off value for this test was laboratory developed and its performance characteris tics confirmed by the [facility] laboratory thru method comparison with reference laboratory and medication chart review. The laboratory is regulated under CLIA as qualified to perform high-comple xity testing. This test is used for clinical purposes in conjunction with other laboratory tests. Ordering Provider: JAIME AWAD Report Released Date/Time: Mar 30, 2023 12:01 PM Reporting Lab: [place] [address] [facility] [place] [address] Performing Lab: [facility] [address] [facility] [place] [address] [facility] METHADON E PANEL (STL) BUPRENORPH INE [PRESENCE] IN URINE Negative 03/31 Specimen Type: URINE Comment: The cut-off value for this test was laboratory developed and its performance characteris tics confirmed by the [facility] laboratory thru method comparison with reference laboratory and medication chart review. The laboratory is regulated under CLIA as qualified to perform high-comple xity testing. This test is used for clinical purposes in conjunction with other laboratory tests. Ordering Provider: JAIME AWAD Report Released Date/Time: Mar 30, 2023 12:01 PM Reporting Lab: [address] [address] Performing Lab: [address] [address] [facility] METHADON E PANEL (STL) FENTANYL [PRESENCE] IN URINE Negative ng/mL 03/31 Specimen Type: URINE Comment: The cut-off value for this test was laboratory developed and its performance characteris tics confirmed by the [facility] laboratory thru method comparison with reference laboratory and medication chart review. The laboratory is regulated under CLIA as qualified to perform high-comple xity testing. This test is used for clinical purposes in conjunction with other laboratory tests. Ordering Provider: JAIME AWAD Report Released Date/Time: Mar 30, 2023 12:01 PM Reporting Lab: [address] [address] Performing Lab: [address] [address] [facility] VITAMIN D, 25-HYDRO XY 25-HYDROXY VITAMIN D3 [MASS/VOLU ME] IN SERUM OR PLASMA 42.5 ng/mL 30 - 96 03/31 Specimen Type: SERUM Comment: The listed sex of this patient may not be a typical indication for this test. Therefore, reference ranges or interpretiv e criteria listed may not be valid. Clinical correlation suggested. Ordering Provider: JAIME AWAD Report Released Date/Time: Mar 30, 2023 04:37 PM Reporting Lab: [place] [address] Performing Lab: [address] [address] [facility] LIPID PANEL (STL) CHOLESTERO L [MASS/VOLU ME] IN SERUM OR PLASMA 158 mg/dL 0 - 200 03/31 Specimen Type: PLASMA Comment: No hemolysis noted. Ordering Provider: JAIME AWAD Report Released Date/Time: Mar 30, 2023 04:37 PM Reporting Lab: [address] [address] Performing Lab: [address] [address] [facility] LIPID PANEL (STL) TRIGLYCERI DE [MASS/VOLU ME] IN SERUM OR PLASMA 129 mg/dL 0 - 150 03/31 Specimen Type: PLASMA Comment: No hemolysis noted. Ordering Provider: JAIME AWAD Report Released Date/Time: Mar 30, 2023 04:37 PM Reporting Lab: [address] [address] Performing Lab: [address] [address] [facility] LIPID PANEL (STL) CHOLESTERO L IN LDL [MASS/VOLU ME] IN SERUM OR PLASMA BY CALCULATIO N 84 mg/dL 03/31 Specimen Type: PLASMA Comment: No hemolysis noted. Ordering Provider: JAIME AWAD Report Released Date/Time: Mar 30, 2023 04:37 PM Reporting Lab: [address] [address] Performing Lab: [place] [address] [facility] [place] [address] [facility] LIPID PANEL (STL) CHOLESTERO L IN HDL [MASS/VOLU ME] IN SERUM OR PLASMA 48 mg/dL 03/31 Specimen Type: PLASMA Comment: No hemolysis noted. Ordering Provider: JAIME AWAD Report Released Date/Time: Mar 30, 2023 04:37 PM Reporting Lab: [address] [address] Performing Lab: [address] [address] [facility] CBC LEUKOCYTES [#/VOLUME] IN BLOOD BY AUTOMATED COUNT 3.9 10*3/uL 3.6 - 11.2 03/31 Specimen Type: BLOOD No comment entered. Ordering Provider: JAIME AWAD Report Released Date/Time: Mar 30, 2023 04:37 PM Reporting Lab: [address] [address] Performing Lab: [address] [address] [facility] CBC ERYTHROCYT ES [#/VOLUME] IN BLOOD BY AUTOMATED COUNT 3.93 10*6/uL 4.10 - 5.70 03/31 L Specimen Type: BLOOD No comment entered. Ordering Provider: JAIME AWAD Report Released Date/Time: Mar 30, 2023 04:37 PM Reporting Lab: [address] [address] Performing Lab: [address] [address] [facility] CBC HEMOGLOBIN [MASS/VOLU ME] IN BLOOD 13.0 g/dL 13.1 - 16.8 03/31 L Specimen Type: BLOOD No comment entered. Ordering Provider: JAIME AWAD Report Released Date/Time: Mar 30, 2023 04:37 PM Reporting Lab: [place] [id number] [facility] [place] [address] Performing Lab: [address] [address] [facility] CBC HEMATOCRIT [VOLUME FRACTION] OF BLOOD 38.7 38.2 - 48.4 03/31 Specimen Type: BLOOD No comment entered. Ordering Provider: JAIME AWAD Report Released Date/Time: Mar 30, 2023 04:37 PM Reporting Lab: [address] [address] Performing Lab: [address] [address] [facility] CBC MCV [ENTITIC VOLUME] BY AUTOMATED COUNT 98.5 fL 80.0 - 100.0 03/31 Specimen Type: BLOOD No comment entered. Ordering Provider: JAIME AWAD Report Released Date/Time: Mar 30, 2023 04:37 PM Reporting Lab: [address] [address] Performing Lab: [address] [address] [facility] CBC MCH [ENTITIC MASS] BY AUTOMATED COUNT 33.1 pg 27.0 - 34.0 03/31 Specimen Type: BLOOD No comment entered. Ordering Provider: JAIME AWAD Report Released Date/Time: Mar 30, 2023 04:37 PM Reporting Lab: [address] [address] Performing Lab: [address] [address] [facility] CBC MCHC [MASS/VOLU ME] BY AUTOMATED COUNT 33.6 g/dL 33.0 - 36.0 03/31 Specimen Type: BLOOD No comment entered. Ordering Provider: JAIME AWAD Report Released Date/Time: Mar 30, 2023 04:37 PM Reporting Lab: [place] [phone] Performing Lab: [address] [address] [facility] CBC PLATELETS [#/VOLUME] IN BLOOD BY AUTOMATED COUNT 169 10*3/uL 150 - 400 03/31 Specimen Type: BLOOD No comment entered. Ordering Provider: JAIME AWAD Report Released Date/Time: Mar 30, 2023 04:37 PM Reporting Lab: [address] [address] Performing Lab: [address] [address] [facility] CBC PLATELET MEAN VOLUME [ENTITIC VOLUME] IN BLOOD BY AUTOMATED COUNT 10.5 fL 7.5 - 11.2 03/31 Specimen Type: BLOOD No comment entered. Ordering Provider: JAIME AWAD Report Released Date/Time: Mar 30, 2023 04:37 PM Reporting Lab: [address] [address] Performing Lab: [address] [address] [facility] CBC ERYTHROCYT E DISTRIBUTI ON WIDTH [RATIO] BY AUTOMATED COUNT 14.0 11.8 - 15.1 03/31 Specimen Type: BLOOD No comment entered. Ordering Provider: JAIME AWAD Report Released Date/Time: Mar 30, 2023 04:37 PM Reporting Lab: [address] [address] Performing Lab: [address] [address] [facility] CBC LYMPHOCYTE S/100 LEUKOCYTES IN BLOOD BY AUTOMATED COUNT 30 03/31 Specimen Type: BLOOD No comment entered. Ordering Provider: JAIME AWAD Report Released Date/Time: Mar 30, 2023 04:37 PM Reporting Lab: [address] [address] Performing Lab: [facility] [address] [facility] [place] [address] [facility] CBC MONOCYTES/ 100 LEUKOCYTES IN BLOOD BY AUTOMATED COUNT 11 03/31 Specimen Type: BLOOD No comment entered. Ordering Provider: JAIME AWAD Report Released Date/Time: Mar 30, 2023 04:37 PM Reporting Lab: [facility] [address] [place] [address] Performing Lab: [facility] [address] [facility] [place] [address] [facility] CBC NEUTROPHIL S/100 LEUKOCYTES IN BLOOD BY AUTOMATED COUNT 52 03/31 Specimen Type: BLOOD No comment entered. Ordering Provider: JAIME AWAD Report Released Date/Time: Mar 30, 2023 04:37 PM Reporting Lab: [address] [address] Performing Lab: [place] [address] [facility] [place] [address] [facility] CBC EOSINOPHIL S/100 LEUKOCYTES IN BLOOD BY AUTOMATED COUNT 6 03/31 Specimen Type: BLOOD No comment entered. Ordering Provider: JAIME AWAD Report Released Date/Time: Mar 30, 2023 04:37 PM Reporting Lab: [place] [address] [facility] [place] [address] Performing Lab: [address] [address] [facility] CBC BASOPHILS/ 100 LEUKOCYTES IN BLOOD BY AUTOMATED COUNT 1 03/31 Specimen Type: BLOOD No comment entered. Ordering Provider: JAIME AWAD Report Released Date/Time: Mar 30, 2023 04:37 PM Reporting Lab: [address] [address] Performing Lab: [place] [address] [facility] [place] [address] [facility] CBC LYMPHOCYTE S [#/VOLUME] IN BLOOD BY AUTOMATED COUNT 1.17 10*3/uL 0.77 - 4.50 03/31 Specimen Type: BLOOD No comment entered. Ordering Provider: JAIME AWAD Report Released Date/Time: Mar 30, 2023 04:37 PM Reporting Lab: [address] [address] Performing Lab: [address] [address] [facility] CBC MONOCYTES [#/VOLUME] IN BLOOD BY AUTOMATED COUNT 0.42 10*3/uL 0.19 - 1.50 03/31 Specimen Type: BLOOD No comment entered. Ordering Provider: JAIME AWAD Report Released Date/Time: Mar 30, 2023 04:37 PM Reporting Lab: [address] [address] Performing Lab: [address] [address] [facility] CBC NEUTROPHIL S [#/VOLUME] IN BLOOD BY AUTOMATED COUNT 2.01 10*3/uL 2.10 - 8.00 03/31 L Specimen Type: BLOOD No comment entered. Ordering Provider: JAIME AWAD Report Released Date/Time: Mar 30, 2023 04:37 PM Reporting Lab: [address] [address] Performing Lab: [address] [address] [facility] CBC EOSINOPHIL S [#/VOLUME] IN BLOOD BY AUTOMATED COUNT 0.23 10*3/uL 0.00 - 0.60 03/31 Specimen Type: BLOOD No comment entered. Ordering Provider: JAIME AWAD Report Released Date/Time: Mar 30, 2023 04:37 PM Reporting Lab: [address] [address] Performing Lab: [address] [address] [facility] CBC BASOPHILS [#/VOLUME] IN BLOOD BY AUTOMATED COUNT 0.02 10*3/uL 0.00 - 0.20 03/31 Specimen Type: BLOOD No comment entered. Ordering Provider: JAIME AWAD Report Released Date/Time: Mar 30, 2023 04:37 PM Reporting Lab: [address] [address] Performing Lab: [address] [phone] [place] [address] B12 COBALAMIN (VITAMIN B12) [MASS/VOLU ME] IN SERUM OR PLASMA 651 pg/mL 213 - 816 03/31 Specimen Type: SERUM Comment: The listed sex of this patient may not be a typical indication for this test. Therefore, reference ranges or interpretiv e criteria listed may not be valid. Clinical correlation suggested. Ordering Provider: JAIME AWAD Report Released Date/Time: Mar 30, 2023 04:37 PM Reporting Lab: [address] [address] Performing Lab: [address] [address] [facility] URIC ACID URATE [MASS/VOLU ME] IN SERUM OR PLASMA 4.4 mg/dL 3.5 - 7.2 03/31 Specimen Type: PLASMA Comment: No hemolysis noted. Ordering Provider: JAIME AWAD Report Released Date/Time: Mar 30, 2023 04:37 PM Reporting Lab: [address] [address] Performing Lab: [address] [address] [facility] Vital Signs Combined list of inpatient and outpatient Vital Signs from Department of Defense and Veterans Affairs, ranging from 12 months to all on record, depending upon the facility. Vital Sign Value Date Comments Source SYSTOLIC BLOOD PRESSURE 122 10/11/2024 10:15:54 [facility] DIASTOLIC BLOOD PRESSURE 74 10/11/2024 10:15:54 [facility] PULSE OXIMETRY 100 10/11/2024 10:15:54 [facility] WEIGHT 161.2 10/11/2024 10:15:54 [facility] BMI 23kg/m2 10/11/2024 10:15:54 [facility] PAIN 0 10/11/2024 10:15:54 [facility] TEMPERATURE 97.5 10/11/2024 10:15:54 [facility] PULSE 57 10/11/2024 10:15:54 [facility] RESPIRATION 18 10/11/2024 10:15:54 [facility] SYSTOLIC BLOOD PRESSURE 134 03/30/2024 09:14:54 [facility] DIASTOLIC BLOOD PRESSURE 80 03/30/2024 09:14:54 [facility] WEIGHT 160.1 03/30/2024 09:14:54 [facility] BMI 23kg/m2 03/30/2024 09:14:54 [facility] PAIN 4 03/30/2024 09:14:54 [facility] TEMPERATURE 98.1 03/30/2024 09:14:54 [facility] PULSE 96 03/30/2024 09:14:54 [facility] RESPIRATION 20 03/30/2024 09:14:54 [facility] Encounters Combined list of: 1) Encounters from Department of Veterans Affairs facilities going back up to thelast 18 months. 2) Encounters from the Department of Defense facilities going back up to 280 months. Location Location Details Encounter Type Encounter Number Reason For Visit Attending Provider ADM Date DC Date Status Disposition Source [facility] Outpatient Encounter [id number] 04/27 [facility] Outpatient Encounter [id number] 04/[address] [facility] Outpatient Encounter [id number] JOSEPH AWAD BY Juan Manuel 05/04 [facility] Outpatient Encounter [id number] ZACK HERNANDEZ 05/10 [facility] Outpatient Encounter [id number] 05/13 [facility] Outpatient Encounter [id number] 06/03 [facility] Outpatient Encounter [id number] 07/19 [facility] Outpatient Encounter [id number] 07/28 [facility] OFFICE O/P EST MOD 30-39 MIN [id number] Diagnos is: ICD-10- CM H25.11 Age-rel ated nuclear catarac t, right eye<br/ > MANSI RAMESH TTHEW C 09/14 [facility] HC PRO PHONE CALL 5-10 MIN [id number] NEVAEH RAMOS C 09/27 [facility] Outpatient Encounter [id number] 09/30 [facility] OFFICE O/P EST MOD 30-39 MIN [id number] Diagnos is: ICD-10- CM E78.5 Hyperli pidemia , unspeci fied
JOSEPH AWAD BY Juan Manuel 09/30 [facility] Outpatient Encounter [id number] 01/10 [facility] Outpatient Encounter [id number] ZACK HERNANDEZ 02/06 [facility] OFFICE O/P EST MOD 30 MIN [id number] Diagnos is: ICD-10- CM E78.5 Hyperli pidemia , unspeci fied
JOSEPH AWAD BY Juan Manuel 03/30 [facility] Outpatient Encounter [id number] 07/11 [facility] Outpatient Encounter [id number] 08/20 [facility] COMPRE OPH EXAM EST PT 1/> [id number] Diagnos is: ICD-10- CM H25.11 Age-rel ated nuclear catarac t, right eye<br/ > АЛЕКСАНДР MILLIGAN R 09/17 [facility] OFFICE O/P EST MOD 30 MIN [id number] Diagnos is: ICD-10- CM E78.5 Hyperli pidemia , unspeci fied
JOSEPH AWAD BY Juan Manuel 10/11 [facility] Social History Combined list of available smoking, tobacco, and other social history from Department of Defense and Veterans Affairs facilities. Social History Type Response Date Comment Sourc e Tobacco smoking status CAIS VA-TOBACCO NEVER USED CIGARETTES 10/11/2024 [facility] History of tobacco use VA-TOBACCO USE SOME DAYS OTHER TYPE 10/11/2024 [facility] History of tobacco use VA-TOBACCO USER EVERY DAY 09/27/2023 [facility] History of tobacco use VA-TOBACCO USER EVERY DAY 02/05/2022 [facility] History of tobacco use VA-TOBACCO USER EVERY DAY 03/04/2021 [facility] History of tobacco use VA-TOBACCO USE SACK CLEANING HAND NO 01/23/2020 [facility] History of tobacco use VA-TOBACCO USER EVERY DAY 04/20/2018 [facility] History of tobacco use TOBACCO USER OFFERED MEDS 03/13/2018 [facility] History of tobacco use TOBACCO USER OFFERED MEDS 10/10/2017 [facility] History of tobacco use CURRENT TOBACCO USER 03/28/2017 [facility] History of tobacco use CURRENT TOBACCO USER 03/14/2017 [facility] History of tobacco use CURRENT TOBACCO USER 05/31/2016 [facility] History of tobacco use CURRENT TOBACCO USER 06/18/2015 [facility] History of tobacco use CURRENT TOBACCO USER 06/17/2014 [facility] History of tobacco use CURRENT TOBACCO USER 05/02/2013 [facility] History of tobacco use CURRENT TOBACCO USER 04/19/2012 [facility] History of tobacco use CURRENT TOBACCO USER 02/09/2011 [facility] Plan of Care List of future care activities from [facility] facilities. Additional future care activities may be listed in the Assessment and Plan section. Date/Time Care Activity Care Activity Detail Facili ty 10/11/2024 Laboratory - Physician'S Assistant ry Order URINE DRUG SCREEN (STL) URINE YELLOW SP [facility] Advance Directives List of completed, amended, or rescinded Advance Directives on record at [facility] facilities. An actual copy of the Directive is not included. Date Advance Directive Provider Source 03/17/2011 ADVANCE DIRECTIVE DISCUSSION JADE MARTINEZ [facility]
--- OUTSIDE RECORDS SUMMARY | 2024-10-16 02:22 | XMS_ITS | Encounter Summary ---
Author Name [facility] Address [address] [place] [address] Care Team Providers Care Cst Name Role Phone LAVERN AWAD Primary Care [...] Name Patient's Relationship to Policy [place] AETNA [facility] (WNR) MEDICARE ADVANTAGE [facility] (WNR) Oct 03, 2022 [id number] Sunita DESIR PATIENT ANTHEM BCBS [place] COMPREHEN SIVE [facility] G TRADI JACIEL L Oct 03, 2013 [id number] [phone] Sunita DESIR ILLARD PATIENT ANTHE[place]BS [place] COMPREHEN S[place] [facility] G TRADI JACIEL L Oct 03, 2013 [id number] [phone] Sunita DESIR PATIENT [place] COMPREH[place] S[place] [facility]J[employer] MEDICAL [facility]EIN G TRADI JACIEL L Oct 03, 2013 [id number] [phone] Sunita DESIR [place]IENT [place] [facility] Liliana Powell Oct 03, 2013 [id number] [phone] Sunita DESIR PATIENT MEDICARE (WNR) MEDICARE (M) PART B Nov 03, 2009 PART B [id number] [phone] KARLEEJOVANI SHEPARD JR PATIENT [facility] (WNR) MEDICARE ADVANTAGE [facility] (R) Oct 03, 2020 [id number] Sunita DESIR PATIENT Selected Encounter This section includes the information on record at [place] for the Encounter. Date/Time Encounter Type Encounter Description Reason Provider Source Mar 30, 2024 09:30 AM OFFICE O/P EST MOD 30 MIN PRIMARY CARE/MEDICINE ICD-10-CM E78.5 Hyperlipidemia, unspecified LAVERN AWAD Bon[place] Encounter Template Text not used by VA Assessments - Encounter Diagnoses This section includes the primary and secondary diagnoses documented for the Encounter. Date/Time Primary/Secondary Diagnosis Diagnosis Name Provider Source Apr 02, 2024 04:08 PM PRIMARY Hyperlipidemia, unspecified LAVERN AWAD [facility] Apr 02, 2024 04:08 PM SECONDARY Gout, unspecified LAVERN AWAD [facility] Apr 02, 2024 04:08 PM SECONDARY Idiopathic progressive neuropathy LAVERN AWAD [facility] Apr 02, 2024 04:08 PM SECONDARY Male erectile dysfunction, unspecified LAVERN AWAD [facility] Apr 02, 2024 04:08 PM SECONDARY Other vitamin B12 deficiency anemias LAVERN AWAD [facility] Apr 02, 2024 04:08 PM SECONDARY Post-traumatic stress disorder, unspecified LAVERN AWAD [facility] Apr 02, 2024 04:08 PM SECONDARY Rash and other nonspecific skin eruption LAVERN AWAD [facility] Apr 02, 2024 04:08 PM SECONDARY Tinnitus, unspecified ear LAVERN AWAD [facility] Apr 02, 2024 04:08 PM SECONDARY Tobacco use LAVERN AWAD [facility] Apr 02, 2024 04:08 PM SECONDARY Transient cerebral ischemic attack, unspecified LAVERN AWAD [facility] Apr 02, 2024 04:08 PM SECONDARY Vitamin D deficiency, unspecified LAVERN AWAD [facility] Plan of Treatment: Future Appointments (+ 6 months) and Future Tests (+/- 45 days) The Plan of Treatment section includes future care activities for the patient from all [place] treatmentfacilities. This section includes future appointments and future orders which are active, pending or scheduled. Future Appointments This section includes appointments that were scheduled to occur 6 months from the date of the Encounter, up to a maximum of 20 appointments. The data comes from all [place] treatment facilities. Appointment Date/Time Appointment Type Appointme nt Facility Name Sep 17, 2024 11:00 AM AMBULATORY - SURGERY [facility] Lab Results: +/- 30 days of the encounter This section includes the Chemistry and Hematology Lab Results on record with VA for the patient. Radiology Reports and Pathology Reports are provided separately, in subsequent sections. Lab Results This section contains the Chemistry/Hematology Results that were resulted 30 days before or 30 daysafter the date of the Encounter. Date/Time Source Result Type Result - Unit Interpretation Reference Range Comment Apr 09, 2024 08:37 AM [facility] METHADONE PANEL (STL) Specimen Type: URINE Comment: The cut-off value for this test was laboratory developed and its performance characteristics confirmed by the [facility] laboratory thru method comparison with reference laboratory and medication chart review. The laboratory is regulated under CLIA as qualified to perform high-complexity testing. This test is used for clinical purposes in conjunction with other laboratory tests. Ordering Provider: LAVERN AWAD Report Released Date/Time: Mar 30, 2024 09:55 AM Reporting Lab: [facility] [address] [address] Performing Lab: [facility] [address] [place] [id number] ETHANOL 55-POS mg/dL H 0-20 AMPHET/METHAMPHE T AMINE Negative ng/mL COCAINE METABOLITES Negative ng/mL BENZODIAZEPINES (STL) Negative ng/mL CANNABINOIDS Negative ng/mL METHADONE Negative ng/mL OPIATES Negative ng/mL CREATININE URINE/OTHERS 98.8 mg/dL 63-166 OXYCODONE ([id number]-[id number]-WK) Negative ng/mL BUPRENORPHINE (STL-PB-MA) Negative FENTANYL (STL-PB) Negative ng/mL Vital Signs: All taken on the encounter date This section contains inpatient and outpatient Vital Signs collected on the date of the Encounter. Date/Time Temperature Pulse Blood Pressure Respiratory Rate SP02 Pain Height Weight Body Mass Index Source Mar 30, 2024 09:14 AM 98.1 96 134/80 20 4 160.1 23 [facility] Social History: Smoking Status (Most current) and Tobacco Use (All prior to encounter date) This section includes the most current, and the historical, smoking and tobacco- related health factors from the [place] facility where the Encounter took place. Current Smoking Status This section includes the most current smoking, or tobacco-related health factor, from the [place] facility where the Encounter took place. Date/Time Current Smoking Status Comment Facil ity February 05, 2022 11:30 AM VA-TOBACCO USER EVERY DAY [facility] Tobacco Use History This section includes a history of the smoking, or tobacco-related health factors, that were collected on or before the date of the Encounter. The data comes from the [place] facility where the Encounter took place. 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 [facility] February 05, 2022 11:30 AM VA-TOBACCO USE MED NO [facility] February 05, 2022 11:30 AM VA-TOBACCO USE WI 30 MIN OF WAKEUP [facility] February 05, 2022 11:30 AM VA-TOBACCO USER EVERY DAY [facility] Apr 20, 2018 11:40 AM VA-TOBACCO USE 30 YEARS OR MORE [facility] Apr 20, 2018 11:40 AM VA-TOBACCO USE ADVICE [facility] Apr 20, 2018 11:40 AM 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 [facility] Apr 20, 2018 11:40 AM VA-TOBACCO USE MED NO [facility] Apr 20, 2018 11:40 AM VA-TOBACCO USE WI 30 MIN OF WAKEUP [facility] Apr 20, 2018 11:40 AM VA-TOBACCO USER EVERY DAY [facility] Mar 13, 2018 01:55 PM CURRENT TOBACCO USER [facility] Mar 13, 2018 01:55 PM CURRENT TOBACCO US ER (NOT READY TO QUIT) [facility] Mar 13, 2018 01:55 PM TOBACCO CESSATION REFERRAL DECLINED [facility] Mar 13, 2018 01:55 PM TOBACCO MEDS OFFER ED BUT DECLINED [facility] Mar 13, 2018 01:55 PM TOBACCO USER OFFERED MEDS [facility] Oct 10, 2017 12:55 PM CURRENT TOBACCO USER [facility] Oct 10, 2017 12:55 PM CURRENT TOBACCO US ER (NOT READY TO QUIT) [facility] Oct 10, 2017 12:55 PM TOBACCO CESSATION REFERRAL DECLINED [facility] Oct 10, 2017 12:55 PM TOBACCO MEDS OFFER ED BUT DECLINED [facility] Oct 10, 2017 12:55 PM TOBACCO USER OFFERED MEDS [facility] Mar 28, 2017 09:10 AM CURRENT TOBACCO USER [facility] Jun 18, 2015 09:04 AM CURRENT TOBACCO USER [facility] Jun 18, 2015 09:04 AM TOBACCO MEDS OFFER ED BUT DECLINED [facility] Jun 17, 2014 08:50 AM CURRENT TOBACCO USER [facility] Jun 17, 2014 08:50 AM TOBACCO MEDS OFFER ED BUT DECLINED [facility] May 02, 2013 02:15 PM CURRENT TOBACCO USER [facility] May 02, 2013 02:15 PM TOBACCO MEDS OFFER ED BUT DECLINED [facility] Apr 19, 2012 08:17 AM CURRENT TOBACCO USER [facility] Apr 19, 2012 08:17 AM TOBACCO MEDS OFFER ED BUT DECLINED [facility] February 09, 2011 07:45 AM CURRENT TOBACCO USER [facility] February 09, 2011 07:45 AM TOBACCO MEDS OFFER ED BUT DECLINED [facility] Advance Directives: All historical and current Section Date Range: From patient's date of to the date document was created. This section includes ALL of a patient's completed or amended VA Advance and Rescinded Directives. The entries below indicate that a directive exists for the patient, but an actual copy is not included with this document. The data comes from all [place] facilities. Date Advance Directives Provider Source Mar 17, 2011 ADVANCE DIRECTIVE DISCUSSION JADE MARTINEZ [facility] Encounter Notes: All associated encounter notes This section contains the clinical notes associated to the Encounter. Date/Time Encounter Note(s) Provider Source Aug 21, 2024 08:38 AM ACCOUNTING OF DISC LOSURES NOTE: LOCAL TITLE: STATE PRESCRIPTION DRUG MONITORING PROGRAM STANDARD TITLE: ACCOUNTING OF DISCLOSURES NOTE DATE OF NOTE: AUG 21, 2024@08:38:31 ENTRY DATE: AUG 21, 2024@08:38:31 AUTHOR: LAVERN AWADIGNER: URGENCY: STATUS: COMPLETED This PDMP query was submitted by Lavern Awad NP. The clinical justification for this PDMP query is to review controlled substances prescribed outside of the VA, and any additional information that may become available, as an important component of standard clinical care, and in accordance with [facility] policy. Patient information was shared with the [employer] [place]. Prescription(s) filled outside the VA in the last 90 days are noted. However, they do not raise significant safety concerns and do not influence the treatment plan at this time. /lidia/ Lavern Awad DNP, LITIGATION COUNSEL, UTILITY TECH-C Primary Care Nurse Practitioner Signed: 08/21/2024 08:38 LAVERN AWAD [facility] May 14, 2024 04:30 PM ACCOUNTING OF DISC LOSURES NOTE: LOCAL TITLE: STATE PRESCRIPTION DRUG MONITORING PROGRAM STANDARD TITLE: ACCOUNTING OF DISCLOSURES NOTE DATE OF NOTE: MAY 14, 2024@16:30:45 ENTRY DATE: MAY 14, 2024@16:30:45 AUTHOR: LAVERN AWAD COSIGNER: URGENCY: STATUS: COMPLETED This PDMP query was submitted by Lavern Awad NP. The clinical justification for this PDMP query is to review controlled substances prescribed outside of the VA, and any additional information that may become available, as an important component of standard clinical care, and in accordance with [facility] policy. Patient information was shared with the [employer] [place]. No prescription(s) for controlled substances outside the VA were found in the last 90 days. /lidia/ Lavern Awad DNP, APRN, UTILITY TECH-C Primary Care Nurse Practitioner Signed: 05/14/2024 16:30 LAVERN AWADKathryn [facility] Apr 09, 2024 07:48 PM ACCOUNTING OF DISC LOSURES NOTE: LOCAL TITLE: STATE PRESCRIPTION DRUG MONITORING PROGRAM STANDARD TITLE: ACCOUNTING OF DISCLOSURES NOTE DATE OF NOTE: APR 09, 2024@19:48:45 ENTRY DATE: APR 09, 2024@19:48:45 AUTHOR: LAVERN AWAD COSIGNER: URGENCY: STATUS: COMPLETED This PDMP query was submitted by Lavern Awad ACCOUNTING INTERN. The clinical justification for this PDMP query is to review controlled substances prescribed outside of the [place], and any additional information that may become available, as an important component of standard clinical care, and in accordance with [facility] policy. Patient information was shared with the [employer] [place]. No prescription(s) for controlled substances outside the VA were found in the last 90 days. /lidia/ Lavern Awad DNP, APRN, CAREY-C Primary Care Nurse Practitioner Signed: 04/09/2024 19:48 LAVERN AWAD [facility] Mar 30, 2024 09:36 AM PRIMARY CARE NOTE: LOCAL TITLE: PRIMARY CARE PROVIDER ESTABLISHED VISIT ST STANDARD TITLE: PRIMARY CARE NOTE DATE OF NOTE: MAR 30, 2024@09:36 ENTRY DATE: MAR 30, 2024@09:36:10 AUTHOR: LAVERN AWAD COSIGNER: URGENCY: STATUS: COMPLETED REASON FOR VISIT/CHIEF COMPLAINT: Evaluation and management of chronic medical conditions/ My scheduled visit HPI: Patient is a 73 year old WHITE MALE who presents to the clinic for evaluation and management of chronic medical conditions. Patient denies any recent ED visits or hospitalizations. Patient goes by Will. Patient reports fell February 2024 with being seen at [place] [facility]. Patient reports being diagnosed with a bruise tailbone and is using pillows with improvement of the pain. Private providers: -Patient prefers for private PCP to manage his primary care, reports obtains certain medications at the DC due to cost. -Private PCP Dr. Cassandra Delgado. #HLD: -Medication: Atorvastatin and FENOFIBRATE. -Reports compliance with medication regimen. -Denies any new onset of myalgias. #Peripheral neuropathy: -Medication: Lyrica. -Reports medication compliance. -Patient requesting to have this renewed through the VA. Patient reports he had to go to his private PCP due to pharmacy delaying his dosage. #ED: -Stable, denies concerns at this time. -Medications: Viagra. #Vitamin D deficiency: -Reports compliance with supplementation. #B12 Deficiency: -Reports compliance with supplementation. #Gout: -Medication: Allopurinol. -Reports compliance with medication regimen. -Denies any recent gout attacks. #PTSD: -Stable per patient. -Denies SI/HI. #Tobacco use: -Current use: Smokes a pipe since age 14. Denies cigarette usage. #Hx TIA: -Occurred in 2021 in the private sector. Patient was evaluated by [facility]. -Denies concerns today. #Lesion: -Located to right lower leg, is approx. the size of a quarter. -Patient reports his PCP is aware. -Patient reports he had this since 2019. #Tinnitus: -Chronic, stable. SOURCE(S) OF HISTORY: Patient PAST MEDICAL HISTORY: 1) Peripheral neuropathy (SNOMED CT 723871118) 2) Decreased vitamin B12 level (SNOMED CT 284544835) 3) Vitamin D deficiency (SNOMED CT 26973729) 4) Erectile dysfunction (SNOMED CT 548398771) 5) Hyperlipidemia 6) Gout 7) Posttraumatic stress disorder 8) Tobacco use 9) Transient cerebral ischemia SOCIAL HISTORY: Tobacco: See above. Alcohol: 1-2 drinks daily. Illicit: Denies. -Patient lives with , reports being for >50 years. ALLERGIES: SERTRALINE ALLERGY REVIEW: Allergy list reviewed and remains current. MEDICATIONS: Active and Recently Outpatient Medications (excluding Supplies): Active Outpatient Medications Status 1) SILDENAFIL CITRATE 100MG TAB TAKE ONE TABLET BY MOUTH ACTIVE EVERY WEEK NEEDED FOR ERECTILE DYSFUNCTION (TAKE 60 MINUTES PRIOR TO SEXUAL ACTIVITY) - LIMIT 6 DOSES PER 30 DAYS Active Non-VA Medications Status 1) Non-VA ALLOPURINOL 100MG TAB 100MG BY MOUTH ONCE A ACTIVE DAY 2) Non-VA ATORVASTATIN CALCIUM 20MG TAB 10MG BY MOUTH ACTIVE EVERY EVENING 3) Non-VA CHOLECALCIF 50MCG (D3-2,000UNIT) TAB 4000UNIT ACTIVE BY MOUTH ONCE A DAY 4) Non-VA CYANOCOBALAMIN 500MCG TAB 500MCG BY MOUTH ONCE ACTIVE A DAY 5) Non-VA FENOFIBRATE 48MG TAB 48MG BY MOUTH ONCE A DAY ACTIVE 6) Non-VA GARLIC OIL EC TAB 1 TABLET BY MOUTH ACTIVE 7 Total Medications REVIEW OF SYSTEMS: Constitutional: Denies weight loss, fever, chills. Ears, Nose, Mouth, Throat: Denies nasal drainage or sore throat. Denies dizziness. Endocrinology: Denies heat or cold intolerance, polydipsia, polyuria, or polyphagia. Cardiovascular: Denies chest pain, palpitations, or dizziness. Respiratory: Denies cough or shortness of breath. ABD/GI: Denies abdominal pain, nausea, vomiting, constipation, diarrhea or incontinence. Musculoskeletal/Extremitie s: Denies edema. Denies pain. /SHIFT MGR: Denies frequency, hesitancy, urgency, or hematuria. Psychology: Denies insomnia or SI/HI. Denies anxiety or depression. Neurology: Denies ALEXANDER, tremors, neuropathy, or seizures. Skin: Denies rashes, skin lesions. PHYSICAL EXAMINATION: VITALS (most recent, as listed in the electronic record): Temperature: 98.1 F [36.7 C] (03/30/2024 09:14) BP: 134/80 (03/30/2024 09:14) Pulse: 96 (03/30/2024 09:14) Resp: 20 (03/30/2024 09:14) PulsOx: 99% (09/30/2023 09:36) Pain: 4 (03/30/2024 09:14) Weight: Measurement DT WEIGHT LB(KG)[BMI] 03/30/2024 09:14 160.1(72.62)[23] 09/30/2023 09:36 167.2(75.84)[24] HEENT: EOMI, PERRLA, Moist mucous membranes. No Scleral icterus or cervical lymphadenopathy. Lungs: Clear to auscultation bilaterally. No accessory muscle use. Cardiovascular: Regular rate and rhythm. No murmur. No JVD. Abdomen: Soft, nontender and non-distended. No palpable masses. Positive bowel sounds in all four quadrants. Extremities: No edema. Nontender. Full ROM to all joints. Gait steady. : Deferred. Neurologic: No focal neurological deficits. Psychiatric: Appropriate mood and affect. Skin: Skin warm, dry and intact. No lesions or rashes noted. DATA REVIEW: HGA1C 5.1 % 03/31/2023 08:19 Lipid Panel: TRIGLYCERIDE 129 mg/dL 03/31/2023 08:19 CHOLESTEROL 158 mg/dL 03/31/2023 08:19 HDL(New) 48 mg/dL 03/31/2023 08:19 CALCULATED LDL 84 mg/dL 03/31/2023 08:19 CMP: SODIUM 138 mEq/L 03/31/2023 08:19 POTASSIUM 3.8 mEq/L 03/31/2023 08:19 CHLORIDE 103 mEq/L 03/31/2023 08:19 UREA NITROGEN 8 L mg/dL 03/31/2023 08:19 CREATININE 0.92 mg/dL 03/31/2023 08:19 CALCIUM 9.3 mg/dL 03/31/2023 08:19 PROTEIN 6.8 g/dL 03/31/2023 08:19 ALBUMIN 4.0 g/dL 03/31/2023 08:19 ALKALINE PHOSPHATASE 43 U/L 03/31/2023 08:19 ALT/SGPT 14 U/L 03/31/2023 08:19 AST/SGOT 20 U/L 03/31/2023 08:19 TOTAL BILIRUBIN 0.8 mg/dL 03/31/2023 08:19 CARBON DIOXIDE 27 mEq/L 03/31/2023 08:19 GLUCOSE 86 mg/dL 03/31/2023 08:19 EGFR (CKD-EPI 2020) 87.3 03/31/2023 08:19 CBC: WBC 3.9 10*3/uL 03/31/2023 08:19 RBC 3.93 L 10*6/uL 03/31/2023 08:19 HGB 13.0 L g/dL 03/31/2023 08:19 HCT 38.7 % 03/31/2023 08:19 MCV 98.5 fL 03/31/2023 08:19 MCH 33.1 pg 03/31/2023 08:19 MCHC 33.6 g/dL 03/31/2023 08:19 RDW 14.0 % 03/31/2023 08:19 PLT 169 10*3/uL 03/31/2023 08:19 MPV 10.5 fL 03/31/2023 08:19 NEUTROPHILS, AUTO % 52 % 03/31/2023 08:19 LYMPHOCYTES, AUTO % 30 % 03/31/2023 08:19 MONOCYTES, AUTO % 11 % 03/31/2023 08:19 EOSINOPHILS, AUTO % 6 % 03/31/2023 08:19 BASOPHILS, AUTO % 1 % 03/31/2023 08:19 NEUTROPHILS, ABSOLUTE 2.01 L 10*3/uL 03/31/2023 08:19 LYMPHOCYTES, ABSOLUTE 1.17 10*3/uL 03/31/2023 08:19 MONOCYTES, ABSOLUTE 0.42 10*3/uL 03/31/2023 08:19 EOSINOPHILS, ABSOLUTE 0.23 10*3/uL 03/31/2023 08:19 BASOPHILS, ABSOLUTE 0.02 10*3/uL 03/31/2023 08:19 PSA: PROST. SPECIFIC AG.(PB-STL) 0.891 ng/mL 03/31/2023 08:19 Result: Acceptable Health maintenance: -Declines immunizations today. Immunization Series Date Facility Reaction Info COVID-19 (MODERNA), MRNA, LNP-S,* 3 02/05/2022 [facility] <C COVID-19 (MODERNA), MRNA, LNP-S,* 1 09/30/2023 [facility] COVID-19 (PFIZER), MRNA, LNP-S, * 3 07/17/2021 [facility] <C> COVID-19 (PFIZER), MRNA, LNP-S, * 2 11/22/2020 [facility] <C> COVID-19 (PFIZER), MRNA, LNP-S, * 1 11/01/2020 [facility] <C> INFLUENZA, UNSPECIFIED FORMULATI* [facility] PNEUMOCOCCAL CONJUGATE PCV 13 08/18/2015 [facility] PNEUMOCOCCAL POLYSACCHARIDE PPV23 03/03/2016 [facility] TDAP 05/04/2018 No Site <C> TDAP 07/08/2008 [place] [facility] 11/10/2011 . [facility] Shingles recombinant: Reports having two dose series at [facility] in approx. 2020. ColoColonoscopy: Aged out per patient. Reports last completed in approx. 2019. Patient states this was negative. PSA: 0.891 ng/mL 03/31/2023. LDCT: Does not qualify. AAA screening: Does not qualify. Eye exam: Eye clinic contact information given. Labs ordered: Methadone. Once obtained plan to renew Pregabalin. ASSESSMENT/PLAN: HLD: -Continue medication regimen. -Reviewed lifestyle modifications including participating in a low fat/low cholesterol diet. -Dietitian contact information given. -Evaluation and management per private PCP. Peripheral neuropathy: -Continue medication regimen. -Methadone panel ordered. Plan to renew Pregabalin once labs obtained. -Evaluation and management per private PCP. ED: -Continue current medications on an as needed basis. -If medications fail to give desired effect, pt instructed to notify the clinic. -Evaluation and management per private PCP. Vitamin D Deficiency: -Continue medication regimen. -Reviewed foods high in vitamin D including: Milk, orange juice, yogurt, salmon, canned tuna fish, cod liver oil and cereals with vitamin D added. -Evaluation and management per private PCP. B12 Deficiency: -Continue medication regimen. -Evaluation and management per private PCP. Gout: -Continue current medication regimen. -Educated to avoid alcohol, seafood and organ meats. -Evaluation and management per private PCP. PTSD: -Reviewed lifestyle modifications. - crisis line and [facility] contact information given. -Patient declines VA psychology consult. -Evaluation and management per private PCP. Tobacco use: -LDCT: Does not qualify, smoked a pipe. -Pt aware of risks of tobacco which includes developing cancer, emphysema and premature cardiovascular disease. -Evaluation and management per private PCP. Hx TIA: -Lifestyle modifications reviewed. -Evaluation and management per private PCP. Lesion: -Patient declines further evaluation and/or management today. -Evaluation and management per private PCP. Tinnitus: -Audiology contact information given. -Educated to avoid loud noises, avoid cotton swabs and to keep ears dry. -Evaluation and management per private PCP. RETURN TO CLINIC: 6 months or earlier as needed f2f per patient preference. SUMMARY STATEMENT: Plan of care has been discussed with including expected therapeutic benefits and potential side effects of prescribed medication and treatments. verbalizes understanding and is in agreement with the plan of care. Patient was instructed to keep all scheduled appointments and contact coal passer for any additional problems. Medication Reconciliation Opt STL: I have reviewed the patient's medication list (including active outpatient prescriptions dispensed from this VA (local) and dispensed from another VA or DoD facility (remote) as well as inpatient orders (local pending and active), local clinic medications, locally documented non-VA medications, and local prescriptions that have or been discontinued in the past 90 days.) with the patient and/or his/her care-transit planner. Handwritten corrections, additions and/or deletions were made to the list, as appropriate. Corrected Outpatient Medication List was provided to the patient/caregiver. Assess Statin Use - Lipids (CVD/DM): The patient is still taking the NON-VA statin medication as documented. Screen for Abd Aortic Aneurysm: The patient declines to undergo ultrasound to screen for possible abdominal aortic aneurysm. /lidia/ Lavern Awad DNP, LITIGATION COUNSEL, UTILITY TECH-C Primary Care Nurse Practitioner Signed: 04/02/2024 16:08 LAVERN AWAD [facility] Mar 30, 2024 09:22 AM NURSING NOTE: LOCAL TITLE: V15 PACT FACE TO FACE NOTE ST STANDARD TITLE: NURSING NOTE DATE OF NOTE: MAR 30, 2024@09:22 ENTRY DATE: MAR 30, 2024@09:22:54 AUTHOR: SRIKANTH BOO EXP COSIGNER: URGENCY: STATUS: COMPLETED Provider Visit: Patient Identifiers : Full Name Date of Reason for visit: Established Follow-Up Mode of Arrival: Ambulatory Allergy Review: SERTRALINE Allergy list reviewed and remains current. Recent Vital Signs: Temperature: 98.1 F [36.7 C] (03/30/2024 09:14) Pulse: 96 (03/30/2024 09:14) Respiration: 20 (03/30/2024 09:14) B/P: 134/80 (03/30/2024 09:14) Pain: 4 (03/30/2024 09:14) Wt: 160.1 lb [72.62 kg] (03/30/2024 09:14) Ht: 70 in [177.8 cm] (01/15/2019 10:16) BMI: 23.0 POX: 99% (09/30/2023 09:36) Would you like to discuss any personal problem, family problem, alcohol use, drug use, or a mental or emotional illness? No Contact provided Primary Care phone number and encouraged to call if any questions or concerns. Review that after hours nurse line [phone] and emergency room are available 25/04 for patient use. Contact verbalized good understanding. Information forwarded to PCP Cal for intervention. /lidia/ SRIKANTH BOO REGISTERED NURSE Signed: 03/30/2024 09:27 SRIKANTH BOO [facility]
--- OUTSIDE RECORDS SUMMARY | 2024-10-16 02:22 | XMS_ITS | Encounter Summary ---
Author Name [facility] [place] Organization [facility] [place] Address [address] [place] [address] Care Team Providers Care Lead Cook Name Role Phone LAVERN AWAD Primary Care [...] Name Patient's Relationship to Policy [place] AETNA [facility] (WNR) MEDICARE ADVANTAGE [facility] (WNR) Oct 03, 2022 [id number] KARLEESunita ILLKELSEY PATIENT ANTHEM BCBS IN COMPREHEN SIVE [facility]JOR [facility]ICAL [facility] G TRADI JACIEL L Oct 03, 2013 [id number] [phone] KARLEEW ILLKELSEY PATIENT ANTHE[place] BCBS [place] COMPREHEN SIVE MA[facility] MEDICAL [facility] G TRADI JACIEL L Oct 03, 2013 [id number] [phone] KARLEEW ILLKELSEY PATIENT AN[place] COMPREHEN S[place] MAJOR MEDICAL BOEIN G TRADI JACIEL L Oct 03, 2013 [id number] [phone] Sunita DESIR PATIENT [place]BS [place] [facility]DROEN [facility]ID[facility] Oct 03, 2013 [id number] [phone] Sunita DESIR PATIENT MEDICARE (WNR) MEDICARE (M) PART B Nov 03, 2009 PART B [id number] KARLEE WARRENJOVANI Sameera PATIENT [facility] (WNR) MEDICARE ADVANTAGE [facility] (WNR) Oct 03, 2020 [id number] Sunita DESIR PATIENT Selected Encounter This section includes the information on record at [place] for the Encounter. Date/Time Encounter Type Encounter Description Reason Pro vider Source Aug 20, 2024 09:33 AM Outpatient Encounter ADMIN PAT ACTIVTIES (MASNONCT) IHE Encounter Template Text not used by [place] Plan of Treatment: Future Appointments (+ 6 months) and Future Tests (+/- 45 days) The Plan of Treatment section includes future care activities for the patient from all [place] treatmentfacilities. This section includes future appointments and future orders which are active, pending or scheduled. Future Appointments This section includes appointments that were scheduled to occur 6 months from the date of the Encounter, up to a maximum of 20 appointments. The data comes from all [place] treatment facilities. Appointment Date/Time Appointment Type Appointme nt Facility Name Sep 17, 2024 11:00 AM AMBULATORY - SURGERY [facility] Oct 11, 2024 10:30 AM AMBULATORY - MEDICINE [facility] Social History: Smoking Status (Most current) and Tobacco Use (All prior to encounter date) This section includes the most current, and the historical, smoking and tobacco- related health factors from the [place] facility where the Encounter took place. Current Smoking Status This section includes the most current smoking, or tobacco-related health factor, from the [place] facility where the Encounter took place. Date/Time Current Smoking Status Khari alberts Sep 27, 2023 01:41 PM VA-TOBACCO USER EVERY DAY [facility] Tobacco Use History This section includes a history of the smoking, or tobacco-related health factors, that were collected on or before the date of the Encounter. The data comes from the [place] facility where the Encounter took place. Date/Time Smoking Status/Tobacco Use Comment F acility Sep 27, 2023 01:41 PM VA-TOBACCO USE 30 YEARS OR MORE [facility] Sep 27, 2023 01:41 PM VA-TOBACCO USE ADVICE [facility] Sep 27, 2023 01:41 PM VA-TOBACCO USE CORPORATE RECRUITER NO [facility] Sep 27, 2023 01:41 PM VA-TOBACCO USE MED NO [facility] Sep 27, 2023 01:41 PM VA-TOBACCO USER EVERY DAY [facility] Advance Directives: All historical and current Section Date Range: From patient's date of to the date document was created. This section includes ALL of a patient's completed or amended [place] Advance and Rescinded Directives. The entries below indicate that a directive exists for the patient, but an actual copy is not included with this document. The data comes from all [place] facilities. Date Advance Directives Provider Source Mar 17, 2011 ADVANCE DIRECTIVE DISCUSSION JADE MARTINEZ [facility] Encounter Notes: All associated encounter notes This section contains the clinical notes associated to the Encounter. Date/Time Encounter Note(s) Provider Source Aug 20, 2024 09:33 AM ADMINISTRATIVE NOT E: LOCAL TITLE: CONTACT NOTE [facility] STANDARD TITLE: ADMINISTRATIVE NOTE DATE OF NOTE: AUG 20, 2024@09:33 ENTRY DATE: AUG 20, 2024@09:33:40 AUTHOR: AMADOU DE LOS SANTOS COSIGNER: URGENCY: STATUS: COMPLETED CONTACT NOTE ST Has ADDENDA Veterans name and last 4 were used to verify identity Verified Veterans telephone #/Updated telephone number in the system REASON FOR CALL: Medications: (please add RNCM/Provider as an additional signer to the note) Refill: Medication: PREGABALIN CAP,ORAL 150MG Provider: lavern Awad /lidia/ AMADOU DE LOS SANTOS ADVANCED ATTENDANT COIN OPERATED LAUNDRY Signed: 08/20/2024 09:34 Receipt Acknowledged By: 08/27/2024 15:23 /lidia/ MARCIANO HERNANDEZ RN BSN REGISTERED NURSE 08/21/2024 08:39 /lidia/ Lavern Awad DNP, APRN, FNP-C Primary Care Nurse Practitioner 08/21/2024 ADDENDUM STATUS: COMPLETED The above medication has been renewed. Thank you. /lidia/ Lavern Awad DNP, APRN, CAREY-Ena Primary Care Nurse Practitioner Signed: 08/21/2024 08:39 AMADOU DE LOS SANTOS [facility]
--- OUTSIDE RECORDS SUMMARY | 2024-10-16 02:23 | XMS_ITS | Clinical Summary ---
Author Organization [facility] Address [address] [place] [address]. 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 Gender Identity Not on file Sexual Orientation Not on file Plan of Treatment Health Maintenance Due Date Last Done Comments Hepatitis C 1968 Annual Medicare Wellness Visit 2013 DTaP, Tdap and Td Vaccines (1 - Tdap) 05/05/2018 05/04/2018 RSV Immunization or 60+ Years (1 - 1-dose 75+ series) 2023 Pneumococcal Vaccine: 65+ Years (2 of 2 - PCV) 07/12/2023 07/12/2022, 07/15/2021 COVID-19 Vaccine ( - season) 2024 07/17/2021, 11/22/2020, 11/01/2020 Influenza Adult (#1) 2024 07/02/2019, 06/22/2018, 05/17/2018, Additional history exists Zoster Vaccines Completed 11/23/2021, 07/15/2021 Meningococcal Vaccine Aged Out No teofilo josh eligible based on patient's age to complete this topic RSV Immunizations Under 20 Months Aged Out No longer eligible based on patient's age to complete this topic Insurance AETNA [facility] OFFICE [facility] Care Teams Fermenter Relationship Specialty Start Date End Date Cassandra Mathis DO [address] [place] [address] PCP - General FAMILY PRACTICE 12/09/22
--- OUTSIDE RECORDS SUMMARY | 2024-10-16 02:23 | XMS_ITS | Encounter Summary ---
Author Organization [facility] Address [address] [place] [address]. [place], [place] [id number] [place] [address] Care Team Providers Care Creative Writer Name Role Phone Cassandra Mathis DO Primary Care Provider [phone] Reason for Referral * Imaging (Routine) - Closed Specialty Diagnoses / Procedures Referred By Stoney rivera Referred To Contact Diagnoses Slurred speech Procedures MRI BRAIN WO CON Chris Cardona MD [address] [place] [address] Phone: tel: fax: [facility] [address] [place] [address] Phone: tel: Referral ID Status Reason Start Date Expiration Date Visits Re quested Visits Authorized [id number] Closed 11/25/2022 01/24/2023 1 1 CTOR OF MARKETING AND PROMOTIONS Reason for Visit * Auth/Cert (Routine) Specialty Diagnoses / Procedures Referred By Stoney rivera Referred To Contact Referral ID Status Reason Start Date Expiration Date Visits Re quested Visits Authorized [id number] 1 1 Encounter Details Date Type Department Care Team (Latest Contact Info) Description 12/09/2022 1:11 PM DIRECTOR OF MARKETING AND PROMOTIONS - 12/09/2022 11:59 PM DIRECTOR OF MARKETING AND PROMOTIONS Hospital En[place] [facility] [place] [address] [place] [address] Chris Cardona MD [address] [place] [address] Discharge Disposition: Home or Self Care (Routine Discharge) Social History Tobacco Use Types Packs/Day Years Used Date Smoking Tobacco: Never Assessed Sex and Gender Information Value Date Recorded Sex Assigned at Not on file Legal Sex Male 10:33 AM DIRECTOR OF MARKETING AND PROMOTIONS Gender Identity Not on file Sexual Orientation Not on file COVID-19 Exposure Response Date Recorded In the last 10 days, have yo u been in contact with someone who was confirmed or suspected to have Coronavirus/COVID-19? No / Unsure 12/09/2022 1:04 PM DIRECTOR OF MARKETING AND PROMOTIONS documented as of this encounter Plan of Treatment Not on file documented as of this encounter Procedures Procedure Name Priority Date/Time Associated Diagnosis Comments MRI BRAIN WO CON Routine 12/09/2022 2:11 PM DIRECTOR OF MARKETING AND PROMOTIONS Slurred speech documented in this encounter Results * MRI BRAIN WO CON (12/09/2022 2:11 PM DIRECTOR OF MARKETING AND PROMOTIONS) Anatomical Region Laterality Modality Head Magnetic Resonan ce 12/09/2022 3:51 PM DIRECTOR OF MARKETING AND PROMOTIONS Impressions 12/09/2022 3:57 PM DIRECTOR OF MARKETING AND PROMOTIONS IMPRESSION: 1. ??No acute process. No evidence of intracranial mass or acute major vessel infarct. This exam is limited due to patient motion 2. Ventricular system is symmetric without evidence of midline shift or mass effect. Grossly normal flow voids within the intracranial portions of the vertebrobasilar system and internal carotid arteries in their proximal portions. 3. No gross abnormality within the brainstem or posterior fossa.Mild small vessel ischemic change and brain volume loss consistent with the patient's age. 4. ??Midline structures are within normal limits. Normal thickness to the corpus callosum.Mild mucosal thickening in the left maxillary sinus with small air- fluid level. May be due to acute on top of chronic inflammation. Ordered By: CHRIS CARDONA Interpreted By: Janell Dasilva, 12/09/2022 3:51 PM Narrative 12/09/2022 3:57 PM DIRECTOR OF MARKETING AND PROMOTIONS IMAGING STUDIES: MRI BRAIN WO CON ? DATE: 12/09/2022 1:45 PM CLINICAL HISTORY: TIA. Memory loss. Slurred speech.. COMPARISON: No Comparisons. Procedure Note Jayden Dasilva MD - 12/09/2022 IMAGING STUDIES: MRI BRAIN WO CON DATE: 12/09/2022 1:45 PM CLINICAL HISTORY: TIA. Memory loss. Slurred speech.. COMPARISON: No Comparisons. IMPRESSION: 1. No acute process. No evidence of intracranial mass or acute majorvessel infarct. This exam is limited due to patient motion 2. Ventricular system is symmetric without evidence of midline shift ormass effect. Grossly normal flow voids within the intracranial portions ofthe vertebrobasilar system and internal carotid arteries in their proximalportions. 3. No gross abnormality within the brainstem or posterior fossa.Mild smallvessel ischemic change and brain volume loss consistent with the patient'alicia. 4. Midline structures are within normal limits. Normal thickness to thecorpus callosum.Mild mucosal thickening in the left maxillary sinus withsmall air-fluid level. May be due to acute on top of chronicinflammation. Ordered By: CHRIS CARDONA Interpreted By: Janell Dasilva, 12/09/2022 3:51 PM us Chris Cardona MD MRI Final Result documented in this encounter Visit Diagnoses Diagnosis Slurred speech Other speech disturbance documented in this encounter Care Teams Creative Writer Relationship Specialty Start Date End Date Cassandra Mathis DO [address] [place] [address] PCP - General FAMILY PRACTICE 12/09/22 documented as of this encounter
--- OUTSIDE RECORDS SUMMARY | 2024-10-16 02:23 | XMS_ITS | Encounter Summary ---
Author Organization [facility] Address [address] [place] [address]. 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 No / Unsure 12/09/2022 1:04 PM ADMISSIONS COUNSELOR documented as of this encounter Plan of Treatment Not on file documented as of this encounter Visit Diagnoses Not on filedocumented in this encounter Care Teams Stamping Press Operator Relationship Specialty Start Date End Date Cassandra Mathis DO [address] [place] [address] PCP - General FAMILY PRACTICE 12/09/22 documented as of this encounter
--- OUTSIDE RECORDS SUMMARY | 2024-10-16 02:24 | XMS_ITS | Encounter Summary ---
Author Organization [facility] Address [address] [place] [address] Care Team Providers Care Medical Editor Name Role Phone Cassandra Mathis DO Primary Care Provider [phone]- [phone] Encounter Details Date Type Department Care Team (Late st Contact Info) Description 08/19/2021 5:43 AM NDT INSPECTOR - 08/20/2021 11:37 AM NDT INSPECTOR Hospital Encounter [facility] [id number] [place] [address] Mina Washington MD [address] [facility] [address] [place] [address] Discharge Disposition: Discharge to home or self care Social History Tobacco Use Types Packs/Day Years Used Date Smoking Tobacco: Some Days Pipe Smokeless Tobacco: Never Comments:daily pipe smoker AUDIT-C Answer Date Recorded Q1: How often do you have a drink containing alcohol? 4 or more times a week 08/19/2021 Q2: How many drinks containi ng alcohol do you have on a typical day when you are drinking? 3 or 4 Q3: How often do you have si x or more drinks on one occasion? Never 08/19/2021 PHQ-2 Answer Date Recorded PHQ-2 Total Score (If total score is 3 or more points, staff should administer the PHQ-9) 0 08/19/2021 Sex and Gender Information Value Date Recorded Sex Assigned at Not on file Legal Sex Male 4:29 PM CDT Gender Identity Not on file Sexual Orientation Not on file documented as of this encounter Last Filed Vital Signs Vital Sign Reading Time Taken Comments Blood Pressure 108/58 08/20/2021 8:35 AM NDT INSPECTOR Pulse 74 08/20/2021 8:35 AM NDT INSPECTOR Temperature 36.7 ??C (98 ??F) 08/20/2021 8:35 AM NDT INSPECTOR Respiratory Rate 18 08/20/2021 8:35 AM NDT INSPECTOR Oxygen Saturation 98% 08/20/2021 8:35 AM NDT INSPECTOR Inhaled Oxygen Concentration - - Weight 76.9 kg (169 lb 8 oz) 08/19/2021 5:55 AM NDT INSPECTOR Height 177.8 cm (5' 10 ) 08/19/2021 5:55 AM NDT INSPECTOR Body Mass Index 24.32 08/19/2021 5:55 AM NDT INSPECTOR documented in this encounter Discharge Diagnoses Diagnosis Unspecified rotator cuff tear or rupture of right shoulder, not specified as traumatic - UNSPECIFIED ROTATOR CUFF TEAR OR RUPTURE OF RIGHT SHOULDER, NOT SPECIFIED TRAUMATIC Polyneuropathy, unspecified - POLYNEUROPATHY, UNSPECIFIED Hyperlipidemia, unspecified - HYPERLIPIDEMIA, UNSPECIFIED Nicotine dependence, other tobacco product, uncomplicated - NICOTINE DEPENDENCE, OTHER TOBACCO PRODUCT, UNCOMPLICATED Other chronic pain - OTHER CHRONIC PAIN Gout, unspecified - GOUT, UNSPECIFIED Personal history of urinary calculi - PERSONAL HISTORY OF URINARY CALCULI Personal history of other malignant neoplasm of skin - PERSONAL HISTORY OF OTHER MALIGNANT NEOPLASM OF SKIN Acquired absence of other specified parts of digestive tract - ACQUIRED ABSENCE OF OTHER SPECIFIED PARTS OF DIGESTIVE TRACT Presence of right artificial shoulder joint - PRESENCE OF RIGHT ARTIFICIAL SHOULDER JOINT Other assisted (current) drug therapy - OTHER SENIOR SAFETY MANAGEMENT CONSULTANT (CURRENT) DRUG THERAPY documented in this encounter Discharge Summaries * Ophelia Jeter NP - 08/19/2021 1:11 PM CST Inpatient Orthopedic Shoulder Discharge Summary Admitting Provider: Mina Washington MD Discharge Provider: Mina Washington* Primary Care Physician at Discharge: Cassandra Mathis DO [phone] Admission Date: 08/19/2021 Discharge Date: 08/20/2021 Primary Discharge Diagnosis: Rotator cuff tear arthropathy of right shoulder Secondary Discharge Diagnosis: Principal Problem: Rotator cuff tear arthropathy of right shoulder Active Problems: HLD (hyperlipidemia) Resolved Problems: No resolved hospital problems. DETAILS OF HOSPITAL STAY Date of Admission: 08/19/2021 Date of Discharge: 08/20/2021 Procedure Performed: Right Reverse Shoulder Arthroplasty Chief Complaint: right shoulder pain History of Present Illness: The patient is a 71 y.o. year old male cared for by Dr. Mina Washington. The patient was seen by the attending surgeon in clinic and was noted to have admission diagnosis as above. Patient's condition was recalcitrant to a period of nonoperative treatment. The risks, benefits, alternatives, and complications of the procedure performed were discussed with the patient at length prior to surgery. After a lengthy discussion, the patient elected to proceed with a surgical intervention given the significant influence on their quality of life. Informed consent was obtained prior to surgery. Patient was cleared by CPAP. Physical Exam: On the day of discharge, the patient was afebrile with stable vital signs. Surgical dressing was clean, dry, and intact. Pain was adequately maintained on oral medications. Hospital Course: The patient was admitted on 08/19/2021 and underwent the aforementioned procedure, which the patient tolerated well. Postoperatively, the patient was admitted to the orthopedic floor for postoperative pain management and post- procedure monitoring. They received DVT prophylaxis in the form of activecare pumps and PO aspirin. They received antibiotic prophylaxis for at least 24 hours. The patient worked with occupational therapy on right elbow, wrist, and hand range of motion as well as mobilityand activities of daily living. Their pain was well controlled on oral narcotics which were provided. The patient also had a nerve catheter placed preoperatively by the Regional team and managed by the Acute PAIN team while on the Orthopedic Service on 08/19/2021. The patient was noted to be able to tolerate the oral intake of food and medication without any nausea or vomiting prior to discharge. The patient was able to void their bladder without any assistance. The patient was able to mobilize about the unit without the use of an assistive device. The patient remained stable throughout their hospitalization. The patient returned home in stable condition. Active Issues Requiring Follow-up: None Test Results Pending at Discharge: None Operative Procedures Performed: Procedure(s): Procedure(s): Right reverse shoulder arthroplasty Other Procedures: None Pertinent Test Results: None Condition on Discharge: stable Discharge Medications: Your medication list START taking these medications Instructions Last Dose Given Next Dose Due acetaminophen 500 mg capsule Take 2 capsules (1,000 mg total) by mouth every 6 (six) hours aspirin 81 mg enteric coated tablet Take 1 tablet (81 mg total) by mouth 2 (two) times a day docusate sodium 100 mg capsule Commonly known as: COLACE Take 1 capsule (100 mg total) by mouth 2 (two) times a day May increase to 4 tablets twice daily ifneeded. HOLD medication for diarrhea. oxyCODONE 5 mg immediate release tablet Commonly known as: ROXICODONE Take 1 tablet (5 mg total) by mouth every 4 (four) hours as needed for pain CHANGE how you take these medications Instructions Last Dose Given Next Dose Due diclofenac sodium 1 % gel Commonly known as: VOLTAREN What changed: ?? additional instructions ?? Another medication with the same name was removed. Continue taking this medication, and follow the directions you see here. CONTINUE taking these medications Instructions Last Dose Given Next Dose Due allopurinoL 300 mg tablet Commonly known as: ZYLOPRIM atorvastatin 10 mg tablet Commonly known as: LIPITOR cholecalciferol 1,000 unit Commonly known as: VITAMIN D-3 cyanocobalamin 1,000 mcg tablet Commonly known as: Vitamin B-12 doxycycline monohydrate 100 mg capsule Commonly known as: MONODOX fenofibrate 54 mg tablet Commonly known as: TRICOR hydrOXYzine 25 mg tablet Commonly known as: ATARAX pregabalin 150 mg capsule Commonly known as: LYRICA sildenafiL 100 mg tablet Commonly known as: VIAGRA vitamin B complex capsule Where to Get Your Medications These medications were sent to [id number] AT [address] [id number] ?? acetaminophen 500 mg capsule ?? aspirin 81 mg enteric coated tablet ?? docusate sodium 100 mg capsule ?? oxyCODONE 5 mg immediate release tablet Cosigned by Mina Washington MD at 08/20/2021 1:09 PM NDT INSPECTOR INSPECTOR INSPECTOR documented in this encounter Medications at Time of Discharge acetaminophen 500 mg capsuleIndication s:Pain Take 2 capsules (1,000 mg total) by mouth every 6 (six) hours 100 tablet 1 08/19/2021 allopurinoL (ZYLOPRIM) 300 mg tablet Take 300 mg by mouth every morning 01/01/2021 aspirin 81 mg enteric coated tabletIndications :Deep Vein Thrombosis Prevention Take 1 tablet (81 mg total) by mouth 2 (two) times a day 28 tablet 08/19/2021 atorvastatin (LIPITOR) 10 mg tablet Take 10 mg by mouth daily 01/01/2021 cholecalciferol (VITAMIN D-3) 1,000 unit Take 1,000 Units by mouth every morning cyanocobalamin (Vitamin B-12) 1,000 mcg tabletIndications :Prevention of Vitamin B12 Deficiency Take 1,000 mcg by mouth every morning diclofenac sodium (VOLTAREN) 1 % gel Apply topically as needed DO NOT APPLY TO RIGHT SHOULDER SURGICAL INCISION. 08/19/2021 docusate sodium (COLACE) 100 mg capsuleIndication s:constipation Take 1 capsule (100 mg total) by mouth 2 (two) times a day May increase to 4 tablets twice daily if needed. HOLD medication for diarrhea. 30 capsule 1 08/19/2021 doxycycline monohydrate (MONODOX) 100 mg capsule Take 100 mg by mouth as needed fenofibrate (TRICOR) 54 mg tablet Take 54 mg by mouth daily 12/16/2020 hydrOXYzine (ATARAX) 25 mg tablet Take 25 mg by mouth as needed for itching oxyCODONE (ROXICODONE) 5 mg immediate release tabletIndications :Pain Take 1 tablet (5 mg total) by mouth every 4 (four) hours as needed for pain 40 tablet 08/19/2021 pregabalin (LYRICA) 150 mg capsule Take 150 mg by mouth 3 (three) times a day sildenafiL (VIAGRA) 100 mg tablet Take 100 mg by mouth as needed for erectile dysfunction vitamin B complex capsule Take 1 capsule by mouth every morning documented as of this encounter Ordered Prescriptions Prescription Sig Dispense Quantity Refills Last Filled Start Date End Date docusate sodium (COLACE) 100 mg capsuleIndications :constipation Take 1 capsule (100 mg total) by mouth 2 (two) times a day May increase to 4 tablets twice daily if needed. HOLD medication for diarrhea. 30 capsule 1 08/19/2021 acetaminophen 500 mg capsuleIndications :Pain Take 2 capsules (1,000 mg total) by mouth every 6 (six) hours 100 tablet 1 08/19/2021 aspirin 81 mg enteric coated tabletIndications: Deep Vein Thrombosis Prevention Take 1 tablet (81 mg total) by mouth 2 (two) times a day 28 tablet 08/19/2021 oxyCODONE (ROXICODONE) 5 mg immediate release tabletIndications: Pain Take 1 tablet (5 mg total) by mouth every 4 (four) hours as needed for pain 40 tablet 08/19/2021 documented in this encounter Discharge Disposition Disposition Code Departure Means Destination Discharge to home or self care documented in this encounter Progress Notes * Marnie Berman, OT - 08/20/2021 9:15 AM CST [facility] Occupational Therapy Treatment Patient Name: Chung Mueller Jr. Date of Service: 08/20/2021 Date of : 1950 Age: 71 y.o.male Room: [address] Admit Date: 08/19/2021 Attending Provider: No att. providers found Primary Diagnosis: Rotator cuff tear arthropathy of right shoulder Subjective HPI: Chung Mueller Jr. is a 71 y.o. male POD 1 s/p right reverse total shoulder arthroplasty. Precautions: Fall Risk, Reverse TSA and safety; right UE sling Weightbearing Status: Non-weight bearing on right UE Patient Comment: I'm not going to sit and take a shower. Objective Vitals: Patient with no adverse signs/symptoms of abnormal vital signs during OT session. Patient with no complaints. Pain Assessment: Pre-therapy pain: 0/10 Post-therapy pain: 0/10 Location: Right UE/shoulder Pain Intervention: cold applied, repositioned, exercise, occupational therapy, rest and RN notified Comments:patient has pain catheter Cognition: Overall Cognitive Status: At Baseline; but decreased recall of safety recommendations; decreased insight of limitations and safety awareness Arousal: Alert Following Commands: Follows one-step commands without difficulty and Follows one-step commands withrepetition; versus disregarding.education Safety Judgement: Decreased awareness of need for assistance and Decreased awareness of need for safety Problem Solving: Assistance required to identify errors made, Assistance required to generate solutions and Assistance required to implement solutions Behavior: Easy to engagel; irritability at times with OT suggestions for safety Hand Dominance: left RUE Assessment:Not tested, shoulder due to surgery/precautions. Elbow->hand within functional limits with active range of motion during HEP. LUE Assessment: Within functional limits Coordination Fine Motor: Fair: right hand due to residual effects of nerve block; unable to manipulate buttons on button-up shirt. Left hand within functional limits. Sensation Numbness/Tingling: Yes right UE from nerve block/pain catheter; patient unable to be specific Activity Tolerance tolerates 30 minutes of activity with multiple rest breaks Activities of Daily Living Grooming: Patient completed grooming standing at sink with close supervision for safety, increased time and adaptive techniques, patient participated in washing left hand. Patient educated to adaptive techniques for grooming. Bathing: Patient/daughter educated to safety and adaptive techniques for bathing in order to comply with shoulder precautions. Upper Body Dressing: Patient completed upper body dressing sitting in bedside chair with moderate assistance for safety,increased time to complete, threading RUE, fasteners and maintaining precautions, patient participated in threading LUE and pulling around back.Patient donned button-up shirt. Education provided for donning overhead shirt as well. Lower Body Dressing: Patient completed lower body dressing sitting in bedside chair with minimal assistance for safety, maintaining precautions, verbal cueing, increased time to complete, donning/doffing right shoe, donning/doffing left shoe, donning/doffing left sock, threading RLE into underwear, threading LLE into underwear, threading RLE into pants, threading LLE into pants, pulling underwear up over hips and pulling pants up over hips. Assistance for right sock. Patient donned socks/shoes; underwear/pant. Education provided regarding adaptive techniques and clothing options for safety and independence. Toileting: Patient completed toileting standing at toilet in bathroom with close supervision for safety, increased time to complete and balance, for standing at toilet to use urinal. Patient deferred to attemptposterior hygiene; stating he is able to perform because he is left-handed. Functional Mobility Bed Mobility: Patient up in chair upon OT entrance. Patient/daughter educated to right UE positioning in recliner. Functional Transfers: Patient performed sit to and from stand, at chair and at bedside, with close supervision. Patient required assistance for safety; increased time; balance. Toilet Transfers: Patient performed standard toilet transfer using no device with close supervision.Patient required assistance for safety; balance; and increased time. Tub Transfers: Patient performed tub transfer using no device and grab bars to shower chair with back with minimalassistance. Patient required assistance for safety; balance. Patient/daughter educated to recommendation for use of shower seat for safety during bathing; for fall prevention and increased focus on right UE (in order to comply with shoulder precautions). Stairs: OT deferred activity, due to physical therapy evaluating patient this date as well. Functional Ambulation: 1) Patient ambulates x20 feet (3x) in room with no device and close supervision to simulate home ambulation. 2) Patient ambulates in hallway x50 feet (2x) with no device and close supervision; loss of [id number]. Patient able to regain with close supervision. Education to recommendation for patient to have supervision with all functional mobility. Patient needed cues to avoid hitting right UE on door frame as he was walking through. He did bump right elbow/splint 2x as he walked through room doorways. He had no complaints and was unaware of bumping UE. *Gait belt used for all OOB mobility* Treatment/Exercises: Elbow flexion/extension 1x15 Forearm pronation/supination 1x15 Wrist flexion/extension 1x15 Gross finger flexion/extension 1x15 Comments: Patient/daughter educated to right UE active range of motion HEP, per Dr. Washington protocol.He was able to perform independently after instruction. They were also provided with education to shoulder precautions; right UE positioning and sling wear; application/removal of sling; pain catheter management with ADL; and Polar care ice pack use. Patient able to doff/don right UE sling with maximum assistance. Assessment Prognosis:Fair Response to today's treatment: Good Patient tolerated OT session well. However, he demonstrates decreased insight on limitations and therefore, decreased safety awareness. He also requires assist/supervision with ADL/functional mobility due to decreased activity tolerance; decreased balance; right UE precautions; and decreased functional use of right UE. He, along with his daughter, were provided with extensive education for shoulder precautions; rightUE positioning and sling wear; application/removal of sling; pain catheter management with ADL; Polar care ice pack use; right UE HEP; safety/adaptive techniques with ADL; safety with functional mobility; safety and transfer techniques with bathroom mobility, including DME use. It was recommended that patient have 24 hour supervision with ADL/functional mobility. Patient needed reinforcement. Completed patient handoff and notified RN, Colton, of patient's location and functional status upon completion of session. Education: Patient and family has been educated on the role of OT, safety, precautions, ADL re-training, Adaptive equipment/DME use and home exercise program. Education completed via explanation, teach back, demonstration and handout . Patient and family verbalized understanding, demonstrated unders tanding and needs ongoing reinforcement. Per patient, daughter originally not planning to come to session. Patient states he would call to find out when she was going to pick him up. With patient permission, OT educated daughter to OT purpose and POC, and recommendation for her to be present for session. She agreed and arrived during session. She was notified of patient's tolerance and performance. Handouts Issued: OT Felix TSA/Reverse TSA packet; they independently verbalized understanding. Barriers to discharge: Decreased safety awareness Care Plan Goals established: 08/19/21 ?? 1. The patient will perform upper body dressing with minimal assistance in order to safely return home by 08/21/2021. Comments: progressing; adequate for discharge 08/20/21 ?? 2. The patient will perform lower body dressing with minimal assistance in order to return home by 08/21/2021. Comments: MET 08/20/21 ?? 3. The patient will perform toileting with close supervision in order to safely return home by 08/21/2021. Comments: progressing, adequate for discharge, 08/20/21 ?? 4. The patient will perform toilet transfer with distant supervision in order to safely transfer home by 08/21/2021. Comments: ??progressing; adequate for discharge, 08/20/21 5. The patient will perform tub shower transfer with DME with minimal assistance in order to safelyreturn home by 08/21/2021. Comments: MET 08/20/21 ?? 6. The patient will perform right UE HEP with independence per protocol in order to safely return home by 08/21/2021. Comments: MET 08/20/21 ?? 7. The patient will doff/don right UE sling with moderate assistance in order to safely return homeby 08/21/2021. Comments: progressing, adequate for discharge, 08/20/21 ?? 8. The patient will complete 1 grooming task standing at sink with close supervision in order to safely return home by 08/21/2021. Comments: MET 08/20/21 ?? 12. The patient will ascend/descend 4 stairs with left handrail and close supervision in order to safely return home by 08/21/2021. Comments: Goal discontinued due to physical therapy to address, 08/20/21 ?? Plan Treatment frequency: Daily Recommended equipment to safely discharge: shower chair and grab bars Comments: for safety in shower with bathing Referrals Recommended: None. Patient okay to discharge home: No Comments: patient will have assist from family Discharge Recommendation: Home with family,Home with 24 hour supervision,Outpatient OT (for right UE function (per MD orders)) Marnie Berman, OT INSPECTOR * Peter Adams MD - 08/20/2021 5:51 AM CST Ortho Shoulder/Elbow Daily Progress Note Subjective Att: Felix Procedure: R Reverse Shoulder Arthroplasty Date of Procedure: 08/19/21 Interval History: No acute events, afebrile. Pain controlled, slept intermittently. Has been ambulating throughout room and urinating on own volition. Objective Vitals: 24hr Min/Max: Temp Min: 35.8 ??C (96.4 ??F) Max: 37.1 ??C (98.8 ??F) Pulse Min: 49 Max: 83 BP Min: 98/53 Max: 130/61 Resp Min: 13 Max: 33 SpO2 Min: 92 % Max: 100 % Most Recent : Vitals: 08/20/21 0256 BP: 104/57 Pulse: 79 Resp: 16 Temp: 36.5 ??C (97.7 ??F) SpO2: 94% I/O last 2 completed shifts: In: 1720 [P.O.:200; I.V.:1500; IV Piggyback:20] Out: 75 [Blood:75] I/O this shift: In: 1100 [P.O.:1100] Out: 0 Surgical Site 08/19/21 Right Shoulder (Active) Site Assessment Color appropriate for ethnicity;Clean;Dry 08/19/211119 Amarilys-wound Assessment Intact;Dry 08/19/211119 Closure Approximated 08/19/211119 Drainage Amount None 08/19/211119 Dressing Status Clean, dry, intact 08/19/212000 Dressing Other (Comment) 08/19/212000 Physical Exam: Awake, alert, oriented No acute distress Breathing regular and unlabored Dressing clean and dry No hematoma present Pre-operative block partially resolved. Does not fire deltoid 2/2 pre-operative nerve block Sensation decreased to light touch. in the median, radial, ulnar, axillary nerves Radial pulse on affected limb palpable Distal neurovascular exam: Intact with exception of full supination Lab/Radiology/Diagnostic Review: Laboratory review: Lab results in the last 24 hours: Recent Results (from the past 24 hour(s)) ABO/Rh Collection Time: 08/19/21 6:26 AM Result Value Ref Range ABO/RH. O Positive Antibody screen Collection Time: 08/19/21 6:26 AM Result Value Ref Range Donya, indirect, Gel Interpretation Negative ABSC ABO / Rh Confirmation Testing Collection Time: 08/19/21 7:40 AM Result Value Ref Range ABO/Rh Confirmation O Positive CBC with auto differential Collection Time: 08/20/21 3:00 AM Result Value Ref Range WBC 5.7 3.8 - 9.9 K/cumm Hgb 11.2 (L) 13.0 - 17.5 g/dL Hct 32.8 (L) 38.9 - 50.3 % Plt 131 (L) 150 - 400 K/cumm MPV 9.5 9.1 - 12.3 fL RBC 3.30 (L) 4.30 - 5.80 M/cumm MCV 99.4 (H) 81.3 - 96.4 fL MCH 33.9 (H) 27.1 - 33.3 pg MCHC 34.1 32.3 - 35.7 g/dL RDW CV 13.0 11.1 - 14.9 % RDW SD 47.1 35.7 - 48.1 fL NRBC abs 0.00 0.00 - 0.01 K/cumm Basic metabolic panel Collection Time: 08/20/21 3:00 AM Result Value Ref Range Sodium 134 (L) 135 - 145 mmol/L Potassium, pl 4.0 3.3 - 4.9 mmol/L Chloride 101 97 - 110 mmol/L CO2 23 22 - 32 mmol/L Anion gap 11 2 - 15 mmol/L BUN 8 8 - 25 mg/dL Creatinine 0.80 0.80 - 1.30 mg/dL Glucose 123 70 - 199 mg/dL Calcium 8.6 8.5 - 10.3 mg/dL Differential, auto Collection Time: 08/20/21 3:00 AM Result Value Ref Range Neutrophil abs 4.3 1.7 - 6.5 K/cumm Imm gran abs 0.0 0.0 - 0.1 K/cumm Lymphocyte abs 0.7 (L) 0.8 - 3.3 K/cumm Monocyte abs 0.4 0.2 - 0.8 K/cumm Eosinophil abs 0.1 0.0 - 0.5 K/cumm Basophil abs 0.0 0.0 - 0.1 K/cumm Neutrophil pct 76.6 % Imm gran pct 0.4 % Lymphocyte pct 12.9 % Monocyte pct 7.8 % Eosinophil pct 1.9 % Basophil pct 0.4 % eGFR Collection Time: 08/20/21 3:00 AM Result Value Ref Range eGFR 89 mL/min/1.73 m2 Assessment/Plan: 71 y.o. male s/p R reverse shoulder arthroplasty on 08/19/21. WB Status: NWB RUE Therapy: OT for OOB/mobilization as tolerated. Immobilization: Sling with pillow DVT ppx: ASA 81 mg BID Pain Control: Continue on current regimen as ordered Antibiotics: Ancef 2-3gm IV Q8hrs for 24 hours postoperative Drain: N/A Diet: Regular Additional needs: Pain team to provide nerve catheter teaching. Discharge planning: home Peter Adams MD Cosigned by Mina Washington MD at 08/20/2021 7:35 AM NDT INSPECTOR INSPECTOR INSPECTOR Associated attestation - Mina Washington MD - 08/20/2021 7:35 AM NDT INSPECTOR I have seen and examined the patient on 08/20/21. I agree with the findings and plan of care as documented in the resident's/fellow's note.. * Perepekhina-Belonog, Ann, PRESS MACHINE FEEDER - 08/19/2021 8:14 AM CST Chung Mueller Jr. [id number] 08/19/2021 Surgeon(s) and Role: * Mina Washington MD - Primary Block Type: ISB Procedure: ARTHROPLASTY RIGHT REVERSE TOTAL SHOULDER - TORNIER (R) Anesthesiologist: DR. Tidwell Catheter and pump education completed with patient. Written instructions provided. Numbness wore off date and time: 08/21/2021 am POD #1 Date:08/20/2021 patient is seen at the hospital in the morning prior to discharge Basal Rate: 6 Bolus Frequency: couple times Pain Scale: 4 Frequency of PO pills: 1 tab q 4 hrs Catheter site free from erythema, drainage, not dislodged, not leaking, denies SOB, any other symptoms of anesthetic toxicity, has a good motor in right hand, pain is well controlled. Comments: reviewed the use of infusion pump and narcotics, will call tomorrow for follow up. POD #2 Date: 08/21/2021 called patient home. Basal Rate: 6 Bolus Frequency: several times a day Pain Scale: 3 Frequency of PO pills: 1 tab q 4 hrs Catheter site free from erythema, drainage, not dislodged, not leaking. Comments: reviewed the catheter removal tomorrow, will call to confirm. POD #3 Date: 08/22/2021 called patient home. Catheter removed without difficulty at home. Site free from erythema or edema per pt. Ann Mtz NP INSPECTOR documented in this encounter H&P Notes * Mina Washington MD - 08/19/2021 6:03 AM CST I have reviewed the H&P, examined the patient, and endorse the findings as written. Plan of Care : Based on the above findings, I consider Chung Mueller Jr. to be an acceptable risk for : Procedure(s): ARTHROPLASTY RIGHT REVERSE TOTAL SHOULDER - TORNIER INSPECTOR Source Note - Meredith Vaughn NP - 08/05/2021 10:01 AM CDT Images from the original note were not included. [facility] Preoperative [facility] and Planning Preoperative Evaluation Record Evaluation type/location: [facility] Planned procedure site: [facility] OR Date: 08/05/21 Anesthesia Evaluation Procedure(s): ARTHROPLASTY RIGHT REVERSE TOTAL SHOULDER - TORNIER Pre-Op Diagnosis Codes: * Rotator cuff tear arthropathy of right shoulder [M75.101, M12.811] HISTORY HPI Chung Mueller is a 71 y.o male, with PMH of smoking, HLD who presents for evaluation prior to their upcoming ARTHROPLASTY RIGHT REVERSE TOTAL SHOULDER - TORNIER R/t torn rotator cuff. Past Medical History Information obtained from: patient and chart. Neurological + Neuromuscular disease (Peripheral neuropathy, r/t back injuries from war. ) Pertinent negatives: seizures; CVA/stroke; TIA; CEA; ICA stenosis; dementia/mild cognitive impairment; psychiatric history and carotid artery stent Cardiovascular + Hyperlipidemia Pertinent negatives: hypertension ; CAD ; NH ; CABG ; systolic/diastolic dysfunction w/o CHF ; valvular heart disease; valve replacement; atrial fibrillation; arrhythmia; pacemaker/ICD; PVD; DVT/PE; negative for CHF; drug- eluting stent(s); bare metal stent(s); unknown stent(s) type and coronary taiwo oplasty Respiratory + Current smoker (Cigar) - Counseled to abstain from smoking the day of surgery. Pertinent negatives: COPD; asthma; sleep apnea (LUC); pulmonary hypertension and no O2 use outside the hospital Hepatic / Heme Pertinent negatives: liver disease; history of anemia; history of thrombocytopenia and history of Donya positive Gastrointestinal Pertinent negatives: GERD and hiatal hernia Renal / + Nephrolithiasis (1999) Pertinent negatives: renal disease and dialysis Musculoskeletal/Pain + Chronic pain (Right shoulder) + Osteoarthritis (Shoulder) Pertinent negatives: chronic opioid use and headaches Endocrine / Other + Cancer history (BCC x3 )- skin cancer only. Pertinent negatives: diabetes mellitus; thyroid disease; obesity (BMI >30); rheumatological disease; transplanted organ; infectious disease; eye disorder and pancreatitis Functional Capacity Functional capacity: 4-6 METs Comments: Currently reports that they are able to walk 4 blocks at a steady pace and 2 flights of stairs without shortness of breath or chest pain. Review of Systems + chronic pain (Right shoulder) + numbness/tingling (Neuropathy) + vision loss (Wears glasses) + dentures/partials (Full set) Pertinent negatives: productive cough; wheezing; SOB; recent cold/flu; fever; chest pain; palpitations; orthopnea; pedal edema; PND; Sickle Cell disease/trait; previous transfusion; transfusion reaction; melena/hematochezia; easy bruising; bleeding problems; syncope; dizziness; muscle weakness; hard of hearing; heartburn; nausea; dysphagia; diarrhea; chipped/loose teeth; abdominal pain; diaphoresis and no unexpected weight change Comments: The patient currently denies signs and symptoms of UTI PAT Summary and Plans Cardiac risk classification of planned procedure: intermediate cardiac risk. Recommendations for patient: alcohol consumption reviewed. Preoperative assessment status: complete pending laboratory results. Initial preoperative evaluation discussed with: Louie Bailon MD Additional comments: Chung Mueller Jr. is a 71 y.o. male who is being evaluated prior to undergoing an intermediate cardiac risk surgery. Revised Cardiac Risk Index factors are (none) for a totalRCRI of 0 out of 6. Functional capacity is 4-6 METs. Obstructive sleep apnea (LUC) screening status is STOP-Bang=2 suggesting low risk for LUC. Blood bank needs for day of procedure: Type and Screen only Pending labs/tests include: CBC CMP Urinalysis flex T&S Patient reports drinks approx 1-3 drinks a night. Denies hx of alcohol withdrawal. Educated to gradually decrease alcohol use prior to surgery. Discussed risks including postop delirium. He agrees todecrease use. CMP ordered. Discussed [facility] location w/ CPAP attending we feel he is still an acceptable candidate for this location. Patient's COVID19 status is: Unexposed. The patient currently has no concerning symptoms of COVID19. . Patient's COVID-19 vaccination status is Fully vaccinated. Vaccination status verbally confirmedwith patient. Documentation of vaccination status to be confirmed on the day of surgery by the patient providing their COVID-19 Vaccination Record Card. . Plan for pre-procedure COVID19 testing: Surgery date greater than 4 days from today. Request placed for pre-procedure COVID19 testing to be performed on 08/15/21 . [facility] will place the order for testing. Result to be reviewed by surgeon's office. . Preoperative evaluation performed by Evelyn Bradford NP on 08/05/21 at 10:52 AM. I have reviewed and agree with this Pre-Procedural Assessment performed by the above primary evaluating PRESS MACHINE FEEDER, who is currently in the CPAP PRESS MACHINE FEEDER Orientation interval. Signed by: Dinora Fink NP on 08/05/21 at 11:02 AM . Follow up note Labs reviewed and are without significant findings. Surgeon's office reviews laboratory results independently, including final results of surgeon ordered labs. CPAP process complete. Follow-up completed by: Meredith Vaughn NP on 08/06/21 at 12:35 PM Patient Active Problem List Diagnosis ??? Rotator cuff tear arthropathy of right shoulder Past Medical History: Diagnosis Date ??? Basal cell carcinoma (BCC) ??? Gout ??? Hyperlipidemia ??? Pneumonia Past Surgical History: Procedure Laterality Date ??? APPENDECTOMY 10/21/2009 ??? SKIN CANCER EXCISION 05/12/1999 Forehead ??? SKIN CANCER EXCISION 03/04/2003 Chin ??? SKIN CANCER EXCISION 04/03/2008 Chest No Known Allergies Med List Status: Nurse Complete Set By: Ana Rosa Forbes RN at 08/05/2021 10:01 AM Taking? Last Dose Start Date End Date Provider allopurinoL (ZYLOPRIM) 300 mg tablet 08/05/2021 01/01/21 -- Yani Riddle MD atorvastatin (LIPITOR) 10 mg tablet 08/05/2021 01/01/21 -- Yani Riddle MD cholecalciferol (VITAMIN D-3) 1,000 unit 08/05/2021 -- -- Yani Riddle MD cyanocobalamin (Vitamin B-12) 1,000 mcg tablet 08/05/2021 -- -- Yani Riddle MD diclofenac DR (VOLTAREN) 75 mg EC tablet 08/05/2021 01/02/21 -- Yani Riddle MD Notes: More than a month diclofenac sodium (VOLTAREN) 1 % gel 01/10/21 -- Yani Riddle MD Notes: More than a month doxycycline monohydrate (MONODOX) 100 mg capsule -- -- Yani Riddle MD Notes: More than a year fenofibrate (TRICOR) 54 mg tablet 08/05/2021 12/16/20 -- Yani Riddle MD hydrOXYzine (ATARAX) 25 mg tablet -- -- Yani Riddle MD Notes: More than a year pregabalin (LYRICA) 150 mg capsule 08/05/2021 -- -- Yani Riddle MD sildenafiL (VIAGRA) 100 mg tablet Past Month -- -- Yani Riddle MD vitamin B complex capsule 08/05/2021 -- -- Yani Riddle MD Current Outpatient Medications: ??? allopurinoL (ZYLOPRIM) 300 mg tablet ??? atorvastatin (LIPITOR) 10 mg tablet ??? cholecalciferol (VITAMIN D-3) 1,000 unit ??? cyanocobalamin (Vitamin B-12) 1,000 mcg tablet ??? diclofenac DR (VOLTAREN) 75 mg EC tablet ??? diclofenac sodium (VOLTAREN) 1 % gel ??? doxycycline monohydrate (MONODOX) 100 mg capsule ??? fenofibrate (TRICOR) 54 mg tablet ??? hydrOXYzine (ATARAX) 25 mg tablet ??? pregabalin (LYRICA) 150 mg capsule ??? sildenafiL (VIAGRA) 100 mg tablet ??? vitamin B complex capsule Social History Tobacco Use Smoking Status Current Some Day Smoker ??? Types: Pipe Smokeless Tobacco Never Used Tobacco Comment daily pipe smoker Substance and Sexual Activity Alcohol Use Not on file Substance and Sexual Activity Drug Use Never Family History Problem Relation Age of Onset ??? Anesthesia problems Neg Hx PAT Physical Exam Airway Exam: Mallampati: II Cervical ROM: limited extension TM distance: normal Jaw ROM: full Cardiovascular Exam: Rate: regular Rhythm: regular Negative for Murmur No extra heart sounds appreciated Negative for peripheral edema JVD negative Negative for weak pulses Pulmonary Exam: LCTA, bilat EENT Exam: trachea midline Dental Exam: Lower dentures and upper dentures Skin Exam: Skin is warm. Capillary refill is < 3 seconds. Abdominal exam: Abdomen is soft. Bowel sounds are present. Current state: Patient's current state is cooperative and interactive. Vitals: 08/05/21 0945 08/05/21 0948 BP: 129/76 123/69 Pulse: 71 SpO2: 94% STOP-Bang Total Score: 2 Kevan index score: 100 AD8 Dementia Score: 0 Short Blessed Total Score: 4 documented in this encounter Consult Notes * Renetta Valdivia, PT - 08/20/2021 10:51 AM CST [facility] Physical Therapy Initial Evaluation Patient Name: Chung Byersncer Date of Service: 08/20/2021 Date of : 1950 Age: 71 y.o. male Room: [address] Admit Date: 08/19/2021 Attending Provider: Mina Washington* Primary Diagnosis: Rotator cuff tear arthropathy of right shoulder Subjective HPI: Chung Mueller Jr. is a 71 y.o. male POD 1 s/p right reverse total shoulder arthroplasty. Patient is agreeable to physical therapy evaluation. Past Medical History: Diagnosis Date ??? Basal cell carcinoma (BCC) ??? Gout ??? HLD (hyperlipidemia) 08/13/2021 ??? Hyperlipidemia ??? Pneumonia Past Surgical History: Procedure Laterality Date ??? APPENDECTOMY 10/21/2009 ??? SKIN CANCER EXCISION 05/12/1999 Forehead ??? SKIN CANCER EXCISION 03/04/2003 Chin ??? SKIN CANCER EXCISION 04/03/2008 Chest Precautions: Fall Risk and Reverse TSA Physical Therapy Goal: Pt would like to return home. Patient Comment: Pt motivated to ambulate. Weightbearing Status: Non-weight bearing on right UE Prior Living Environment and Level of Function: [facility] Lives With: and Family- Adult son Stairs to Enter: 0 Railings: 0 Stairs Inside: 6 steps to upper level; 6 steps to lower level; normally sleeps on lower level; upper level has kitchen/living room; full bath on upper level; no bathroom on lower level; has recliner on upper level (patient will sleep in and stay on upper level). Railings: On left side Comments: Home Equipment: none Comments: Prior Level of Function: Independent with ADLs, Independent with transfers and Independent with ambulation Comments: Driving: Yes- Per OT, drives son to/from work (son moved home 7 years ago due to 3 DUIs and stint in rehab). can drive son now. Occupation: Retired Falls Within the Last 6 Months: Yes: 3 on vacation tripped over rug Objective Vitals: Comments: Pt vitals appropriate prior to therapy visit and remained stable during therapy session. Activity Tolerance: Endurance: Tolerates 30 minutes of activity with multiple rests. Pain Assessment: Pre-evaluation pain: 0 /10 Post-evaluation pain: 0 /10 Location: Pt reported no pain Pain intervention: Cold applied, Repositioned, Ambulation, Physical therapy and RN notified Cognition: Overall Cognitive Status: At Baseline Arousal: Alert Orientation: Oriented x4 (person, place, time, and situation)- Pt required cues for redirection andsafety concern. Pt seemed to have poor insight. Following Commands: Follows all commands and directions without difficulty Behavior: Easy to engage Bed Mobility: Patient presents sitting in chair. Transfers: Patient performs sit to and from stand with no device and close supervision for safety. Gait: Patient ambulates x 100 feet with no device and close supervision for safety secondary to impaired balance. Pt declined single point cane at this time. Stairs: Patient negotiates 4 stairs x 2 with 1 hand railing and close supervision. Pt and pt's daughter report they feel safe negotiation stairs at home. Pt has 6 stairs he has to negotiate once. Gait belt was used for all out of bed mobility. Assessment Physical Therapy Diagnosis: Impaired joint mobility, motor function, muscle performance, and range of motion associated with joint arthroplasty Prognosis: Good Response to today???s treatment: Good Completed patient handoff and notified RN of patient???s location and functional status upon completion of session. RN okayed physical therapy and patient agreeable. In AM, pt found supine and required close supervision for bed mobility. Patient performed sit <> stand with close supervision. Patient ambulated 100 feet with no device and close supervision. Patient was left sitting at end of therapy session.RN notified. Patient's clinical presentation is stable and the patient's clinical course is expected to progressin a typical manner. Patient demonstrates deficiencies in the following areas: gait deviations, decreased strength, decreased range of motion, decreased endurance, impaired balance and decreased mobility. Patient would benefit from physical therapy intervention to address these impairments and functional limitations. Education: Patient and family has been educated on the role of physical therapy, safety, precautions, mobility training, stairs and home exercise program. Education completed via explanation, teach back and demonstration. Patient and family verbalized understanding, demonstrated understanding and needs ongoing reinforcement. Handouts Issued: None issued this visit Barriers to discharge: None Care Plan Goals established: 08/20/21 1. The patient will perform bed mobility including supine to/from sit with modified independence inorder to safely return home by 08/25/2021. Comments: Initiated 2. The patient will perform sit to/from stand transfers using none and modified independence in order to safely return home by 08/25/2021. Comments: Initiated 3. The patient will ambulate 100 feet using none and modified independence in order to safely return home by 08/25/2021. Comments: Initiated 4. The patient will ascend/descend 4 stairs with 1 handrail and minimal assistance in order to safely return home by 08/25/2021. Comments: Completed 5. The patient will perform HEP with supervision or less per protocol in order to safely return home by 08/25/2021. Comments: Completed Plan Physical therapy frequency: Daily Physical therapy interventions: bed mobility, gait training, stair training, therapeutic activity, therapeutic exercise, equipment evaluation and education, endurance training and balance training Recommended equipment to safely discharge: none Recommended method of transportation at discharge: Personal vehicle with family Referrals Recommended: None Patient okay to discharge: Yes Discharge Recommendation: Home with family,Home Health PT Comments: Renetta Valdivia, PT INSPECTOR * Marnie Berman, OT - 08/19/2021 6:25 PM CST [facility] Occupational Therapy Evaluation Patient Name: Chung Mueller Jr. Date of Service: 08/19/2021 Date of : 1950 Age: 71 y.o.male Room: [id number] Admit Date: 08/19/2021 Attending Provider: Mina Washington* Primary Diagnosis: Rotator cuff tear arthropathy of right shoulder Subjective HPI: Chung Mueller Jr. is a 71 y.o. male POD 0 s/p right reverse total shoulder arthroplasty. Past Medical History: Diagnosis Date ??? Basal cell carcinoma (BCC) ??? Gout ??? HLD (hyperlipidemia) 08/13/2021 ??? Hyperlipidemia ??? Pneumonia Past Surgical History: Procedure Laterality Date ??? APPENDECTOMY 10/21/2009 ??? SKIN CANCER EXCISION 05/12/1999 Forehead ??? SKIN CANCER EXCISION 03/04/2003 Chin ??? SKIN CANCER EXCISION 04/03/2008 Chest Precautions: Fall Risk and Reverse TSA; sling right UE Weightbearing Status: Non-weight bearing on right UE Occupational Therapy Goal: I want to be able to play golf. Patient Comment: I fall a lot. States right knee gives out on him. Prior Living Environment and Level of Function: Type of Home: [facility] Lives With: and son Stairs to Enter: concrete pad Stairs Inside: 6 steps to upper level; 6 steps to lower level; normally sleeps on lower level; upper level has kitchen/living room; full bath on upper level; no bathroom on lower level; has recliner on upper level (patient will sleep in and stay on upper level). Railings: Left; none to upper level (uses floor, left side) Receives Help From: /son (works); daughter coming in from out of town to assist. Bathroom Shower/Tub: Tub/shower unit with curtain Bathroom Toilet: Raised height Bathroom Equipment: grab bars in shower/tub and shower chair Home Mobility Equipment: walking stick in my truck , uses in community Home ADL Equipment: Water Jet Loom Fixer Level of [place]: Independent with ADLs, Independent with transfers and Independent with ambulation. Patient independent with instrumental activities of daily living. Driving: Yes; drives son to/from work (son moved home 7 years ago due to 3 DUIs and stint in rehab). can drive son now. Vocational/Occupation: Retired Fall within the last 6 months: Yes: 3; on vacation tripped over rug Subjective Vitals: Noted vital signs stable prior to OT session. Patient with no adverse signs/symptoms of abnormal vital signs during OT session. Patient with no complaints. Pain Assessment: Pre-therapy pain: 4/10 (bilateral feet) Post-therapy pain: No pain right UE Pain Intervention: cold applied, repositioned, ambulation, occupational therapy and rest Comments:patient has pain catheter Cognition: Overall Cognitive Status: At Baseline Arousal: Alert Orientation: Oriented x4 (person, place, time, and situation) Following Commands: Follows all commands and directions without difficulty Safety Judgement: Decreased awareness of need for assistance and Decreased awareness of need for safety Behavior: Easy to engage Hand Dominance: left RUE Assessment: Not tested, shoulder due to surgery/precautions. Elbow->hand not formally assessed due to decreased active movement as a result of nerve block. LUE Assessment: Within functional limits Coordination Fine Motor: Impaired right UE due to nerve block; left UE within functional limits. Sensation Numbness/Tingling: Yes Right UE due to nerve block; left UE within functional limits. Activity Tolerance tolerates 10-20 minutes of activity with multiple rest breaks Activities of Daily Living Grooming: Patient deferred. Upper Body Dressing: Not addressed due to patient fatigue. Lower Body Dressing: Not addressed due to patient fatigue. Toileting: Patient sat on toilet in bathroom to urinate; minimal assistance due to assistance required for gown. Functional Mobility Bed Mobility: Patient performed long sit to and from edge of bed with minimal assistance. Patient required assistance for trunk elevation; trunk descent; increased time; elevated head of bed; right UE maneuvering. Functional Transfers: Patient performed sit to and from stand at bedside, with close supervision. Patient required assistance for safety and balance. Toilet Transfers: Patient performed standard toilet transfer using no device with minimal assistance.Patient requiredassistance for safety; balance; grab bar use; control of descent; force production.. Tub Transfers: Not addressed due to patient fatigue. Stairs: Not addressed due to patient fatigue. Functional Ambulation: Patient ambulates x12 feet with no device and close supervision to simulate home ambulation. Assistance for safety and balance. *Gait belt used for all OOB mobility* Treatment/Exercises: Elbow flexion/extension NA Forearm pronation/supination NA Wrist flexion/extension NA Gross finger flexion/extension NA Comments: Patient unable to perform HEP due to decreased active movement in right UE as a result ofnerve block. Education initiated regarding shoulder precautions and application/removal of sling; right UE positioning in bed. Patient required maximum assistance to doff/don sling (adjusted for correct fit by OT). Assessment Occupational Therapy Problem List: Patient has impairments including: ADLs, functional mobility, endurance, upper extremity ROM, upper extremity strength, judgement with ADLs, balance and coordination. Patient would benefit from occupational therapy intervention to address these impairments and functional limitations. Brief review of medical and therapy records pertaining to current functional performance was obtained for this patient. Low complexity decision making was necessary for analysis of occupational profile, analysis of data, and consideration of treatment options. Minimal to no modification and assistance was needed for patient to complete all evaluation components. Prognosis:Fair Response to today's treatment: Fair Patient tolerated OT session fair. Initial education provided regarding shoulder precautions; safety with ADL/functional mobility; application/removal/positioning of sling. Completed patient handoff and notified RN of patient's location and functional status upon completion of session. Education: Patient has been educated on the role of OT, safety, precautions and ADL re-training. Education completed via explanation, teach back and demonstration. Patient verbalized understanding, demonstrated understanding and needs ongoing reinforcement. Handouts Issued: education provided regarding shoulder precautions and sling management. Hand-outs to be issued 08/20/21. Barriers to discharge: Current mobility status, Home environment challenged, Decreased safety awareness and unsure of actual caregiver support at home. Care Plan Goals established: 08/19/21 1. The patient will perform upper body dressing with minimal assistance in order to safely return home by 08/21/2021. Comments: initiated 2. The patient will perform lower body dressing with minimal assistance in order to return home by 08/21/2021. Comments: initiated 3. The patient will perform toileting with close supervision in order to safely return home by 08/21/2021. Comments: initiated 4. The patient will perform toilet transfer with distant supervision in order to safely transfer home by 08/21/2021. Comments: initiated 5. The patient will perform tub shower transfer with DME with minimal assistance in order to safelyreturn home by 08/21/2021. Comments: initiated 6. The patient will perform right UE HEP with independence per protocol in order to safely return home by 08/21/2021. Comments: initiated 7. The patient will doff/don right UE sling with moderate assistance in order to safely return homeby 08/21/2021. Comments: initiated 8. The patient will complete 1 grooming task standing at sink with close supervision in order to safely return home by 08/21/2021. Comments: initiated 12. The patient will ascend/descend 4 stairs with left handrail and close supervision in order to safely return home by 08/21/2021. Comments: initiated Plan Treatment frequency: Daily Treatment interventions: ADL/Instrumental Activities of Daily Living , Balance training , Compensatory technique education, Endurance training , Equipment evaluation/education, Functional/therapeuticactivity, Functional mobility training , Orthotic management , Parent/caregiver training and education, Positioning and Therapeutic exercises Recommended equipment to safely discharge: shower chair and grab bars Referrals Recommended: Physical therapy consult. Raul (PT distribution district supervisor) and Yanet (OT distribution district supervisor) notified of recommendation.. Patient okay to discharge home: No Comments: patient needs further OT training Discharge Recommendation: Home with family,Home with 24 hour supervision,Outpatient OT (for right UE function (per MD orders)) Marnie Berman OT INSPECTOR documented in this encounter Miscellaneous Notes * Plan of Care - Colton Canales RN - 08/20/2021 11:04 AM CST Goals: Clinical Goals for the Shift: Pain level <4 with cold therapy and pain medication. I/S 10 times an hour , Ankle pumps 15 times an hour . Summary: Problem: Health Behavior: Goal: Understanding of discharge needs will improve Outcome: Adequate for Discharge Problem: Lack of Knowledge: Goal: Ability to state ways to decrease the risk of falls will improve Outcome: Adequate for Discharge Problem: Safety: Goal: Will remain free from falls Outcome: Adequate for Discharge Goal: Will remain free from injury from falls Outcome: Adequate for Discharge Goal: Will remain free from falls and injury in home environment Outcome: Adequate for Discharge Problem: Activity: Goal: Ability to avoid complications of mobility impairment will improve Outcome: Adequate for Discharge Problem: Lack of Knowledge: Goal: Understanding of discharge needs will improve Outcome: Adequate for Discharge Problem: Physical Regulation: Goal: Postoperative complications will be avoided or minimized Outcome: Adequate for Discharge Problem: Safety: Goal: Will remain free from falls Outcome: Adequate for Discharge Problem: Skin Integrity: Goal: Will remain free from infection Outcome: Adequate for Discharge INSPECTOR * Plan of Care - Suman Chandler RN - 08/20/2021 1:53 AM CST Problem: Health Behavior: Goal: Understanding of discharge needs will improve Outcome: Progressing Problem: Safety: Goal: Will remain free from falls Outcome: Progressing Goals: Clinical Goals for the Shift: Pain <4. Ambulate as tolerated. Summary: Pain managed with a rating of 0/10. Pt tolerated ambulating. INSPECTOR * Op Note - Mina Washington MD - 08/19/2021 8:45 AM CST Operative Report SURGEON: Mina Washington MD SURGICAL TEAM: Surgeon(s) and Role: * Mina Washington MD - Primary * Bong Valenzuela MD PhD - Resident - Assisting DATE OF SURGERY : 08/19/2021 PREOPERATIVE DIAGNOSIS: Pre-op Diagnosis * Rotator cuff tear arthropathy of right shoulder [M75.101, M12.811] POSTOPERATIVE DIAGNOSIS: Post-op Diagnosis * Rotator cuff tear arthropathy of right shoulder [M75.101, M12.811] PROCEDURE: Procedure(s): Right reverse shoulder arthroplasty (Right) INDICATION FOR PROCEDURE: 71 year-old male with long standing history of right shoulder pain. He was indicated for above procedure after discussing risks, benefits, complications and alternatives. ANESTHESIA: Choice IMPLANTS: Implant Name Type Inv. Item Serial No. Genomics Scientist Lot No. LRB No. Used Action Play for Job [id number] [employer] PERFORM 15MM PRESS FIT LONG POST SHOULDER - [id number] - [id number] Other - see comments TORNIER INC [id number] Tornier Aequalis Perform 15mm Press Fit Long Post Shoulder [id number] [employer] Right 1 Implanted TORNIER INC [id number] TORNIER AEQUALIS PERFORM 25MM LATERALIZE AUGMENT REVERSE SHOULDER - [id number] Other - see comments TORNIER INC [id number] Tornier Aequalis Perform 25mm Lateralize AugmentReverse Shoulder [id number] [employer] Inc Right 1 Implanted TORNIER INC [id number] TORNIER AEQUALIS PERFORM 39MM REVERSE SHOULDER STANDARD SPHERE - [id number] Other - see comments TORNIER INC [id number] Tornier Aequalis Perform 39mm Reverse Shoulder Standard Sphere [id number] [employer]ia [employer] Inc Right 1 Implanted TORNIER INC [id number] AEQUALIS PERFORM REVERSED 5MM 34MM PERIPHERAL GLENOID SCREW - [id number] Screw TORNIER INC [id number] Aequalis Perform Reversed 5mm 34mm Peripheral Glenoid Screw [employer] Technology Inc Right 2 Implanted [employer] [id number] INSERT PERFORM 10 DEG [id number] - [id number] - [id number] Other- see comments [employer] MED[employer] TECHN[employer]Y INC [id number] INSERT PERFORM 10 DEG [id number] @[employer] Right 1 Implanted [employer] [id number] STEM PERFORM SZ 3 HUMERAL - SNA - [id number] Other - see comments [employer] [id number] STEM PERFORM SZ 3 HUMERAL NA [employer] Right 1 Implanted OPERATIVE DETAILS Estimated Blood Loss: 75 mL Intraoperative Fluids: 1200 mls Blood/Blood Products Transfused: 0 mls Specimens: Order Name Source Comment Collection Info Order Time URINALYSIS AND REFLEX TO MICROSCOPIC AND CULTURE 08/05/2021 10:19 AM TYPE AND SCREEN 14 DAY 08/05/2021 10:19 AM Has the patient had Daratumumab or Isatuximab in the past 6 months? Unknown Is this test being ordered in advance for a procedure? Yes Expected date of procedure: 08/19/2021 Has the patient been transfused in the past 3 months? No CBC WITHOUT DIFFERENTIAL 08/05/2021 10:19 AM COMPREHENSIVE METABOLIC PANEL 08/05/2021 10:48 AM TYPE AND SCREEN 08/19/2021 5:55 AM Has the patient had Daratumumab or Isatuximab in the past 6 months? Unknown PROCEDURE: Implant system: Tornier Perform Size of glenosphere: 39 mm Baseplate Size: 25 mm+3 Size of humeral component/cement vs uncemented: 3 press-fit Polyethylene liner type/size: +0 elevated Status of subscapularis: Peeled The patient was identified in the preoperative area. Surgical site was marked and verified. The patient was taken to the operating room where a general anesthesia was induced without any complications. Weight appropriate intravenous antibiotics were administered. The patient was then placed into a low beach chair position. Pneumatic compression devices were also placed on the legs. Cervical spinewas maintained in neutral flexion. The operative extremity was then prepped and draped in the usualsterile fashion. After draping, a surgical timeout was performed verifying the correct patient, surgical site, and planned procedure. A standard deltopectoral approach was then made starting at the co racoid process and extending inferolaterally overlying the deltopectoral interval. Full-thickness skin and subcutaneous tissue flaps were created with sharp dissection down to the deltopectoral muscular interval. The deltoid was then bluntly taken laterally and pectoralis major medial inferiorly. The cephalic vein was taken laterally with the deltoid. The subdeltoid planes were then bluntly dissected and deltoid retractors placed. Biceps was unroofed and rotator interval was released. The biceps tendon was tenotomized. Deep deltoid retractor was placed and the subscapularis layer was exposed.The subscapularis peeled off the lesser tuberosity in full thickness with the capsule.The arm was adducted, flexed and externally rotated, continually releasing the capsule to about the 6:00 positionwhile protecting the axillary nerve. This allowed dislocation of the humeral head anteriorly. Osteophytes were removed from the humeral head as needed. A humeral head cut was made according to the neck shaft angle of the stem in approximately 20-30 degrees of retroversion. Deep glenoid retractors were then placed and visualization of the glenoid was excellent. The axillary nerve was identified and protected and then the inferior labrum excised. The upper long head of the triceps was also incised and released revealing the inferior border of the glenoid neck. After location of this, a drill guide was placed referencing the inferior glenoid and the appropriate location of the drill hole. After visualization to verify the correct location, a guide pin was used to sound the glenoid in this location and verify appropriate depth for insertion of the glenoid base plate. The baseplate was drilled and reamed appropriately without version correction of the [place] glenoid face. Glenoid base plate was fastened into place with outstanding initial fixation. Peripheral screws were then placed in astandard bicortical fashion. Excellent fixation was obtained with the screws and they were locked in place. A glenosphere was then carefully applied and fastened into place. The arm was dislocated anteriorly and the humerus was prepared according to the correct instrumentation. At this point, a provisional implant was then placed, correct humeral version was ensured. Trial reductions were then performed and stability testing was performed using standard techniques. The final humeral stem was janice juan josé in approximately 20 degrees of retroversion. Trial polyethylene inserts were trialed in sequential fashion and the appropriate-sized polyethylene component was fastened to the humeral component. The humerus was then reduced and appropriate stability and clearance from bony impingement was verified. Subscapularis was of poor quality and remained unrepaired.. Hemostasis was obtained and the wound thoroughly irrigated. The wound was closed in a layered fashion followed by placement of a sterile dressing. A sling was placed and anesthesia reversed. Patient was taken to the recovery room, having tolerated the procedure well and having sustained no intraoperative complications. Complications: None Condition on Discharge from the operating room was stable Mina Washington MD Date: 08/19/2021 Time: 10:26 AM TEACHING ATTESTATION : I was present and I participated in all portions of the procedure except skin closure and remained immediately available during all remaining portions of the case. INSPECTOR * Brief Op Note - Bong Valenzuela MD PhD - 08/19/2021 8:45 AM NDT INSPECTOR Operative Progress Note Surgical Team: Surgeon(s) and Role: * Mina Washington MD - Primary * Bong Valenzuela MD PhD - Resident - Assisting Anesthesiologist: Kristina Tidwell MD INDUSTRIAL CHEMISTRY TEACHER: Darnell Rios CRNA Division Sergeant: Amy Rogers RN Scrub: Amara Isabel ST; Kaminski, Jeremy, ST RNFA: Jackie Morales RN DATE OF SURGERY : 08/19/2021 Preoperative Diagnosis: Pre-op Diagnosis * Rotator cuff tear arthropathy of right shoulder [M75.101, M12.811] Postoperative Diagnosis: Post-op Diagnosis * Rotator cuff tear arthropathy of right shoulder [M75.101, M12.811] Procedure(s): Procedure(s) (LRB): Right reverse shoulder arthroplasty (Right) Operative Findings: R shoulder RC deficiency with significant degeneration of supraspinatus, subscapularis, and infraspinatus. Some teres minor attached. End stage chondral changes of glenohumeral joint. Now s/p reversetotal shoulder arthroplasty. Estimated Blood Loss: 75 mL Intraoperative Fluids: 100 mls Specimens: No specimen collected in procedure Implants: Implant Name Type Inv. Item Serial No. Genomics Scientist Lot No. LRB No. Used Action TORNIER INC [id number] TORNIER AEQUALIS PERFORM 15MM PRESS FIT LONG POST SHOULDER - [id number] - [id number] Other - see comments TORNIER INC [id number] Tornier Aequalis Perform 15mm Press Fit Long Post Shoulder [id number] [employer]ia [employer] Technology [employer] Right 1 Implanted TORNIER INC [id number] TORNIER AEQUALIS PERFORM 25MM LATERALIZE AUGMENT REVERSE SHOULDER - [id number] Other - see comments TORNIER INC [id number] Tornier Aequalis Perform 25mm Lateralize AugmentReverse Shoulder [id number] [employer]btide [employer] Inc Right 1 Implanted TORNIER INC [id number] TORNIER AEQUALIS PERFORM 39MM REVERSE SHOULDER STANDARD SPHERE - [id number] Other - see comments TORNIER INC [id number] Tornier Aequalis Perform 39mm Reverse Shoulder Standard Sphere [id number] [employer]ide [employer] Inc Right 1 Implanted TORNIER INC [id number] AEQUALIS PERFORM REVERSED 5MM 34MM PERIPHERAL GLENOID SCREW - [id number] Screw TORNIER INC [id number] Aequalis Perform Reversed 5mm 34mm Peripheral Glenoid Screw [employer] Right 2 Implanted [employer] [id number] INSERT PERFORM 10 DEG [id number] - [id number] - [id number] Other- see comments [employer] [id number] INSERT PERFORM 10 DEG [id number] [employer] Right 1 Implanted [employer] MEDICAL TECHNOLOGY INC [id number] STEM PERFORM SZ 3 HUMERAL - SNA - [id number] Other - see comments [employer] MEDICAL TECHN[employer]Y INC [id number] STEM PERFORM SZ 3 HUMERAL NA [employer] Right 1 Implanted Blood/Blood Products Transfused: 0 mls Complications: None Condition on Discharge from the operating room was stable Bong Valenzuela MD PhD Date: 08/19/2021 Time: 12:17 PM TEACHING ATTESTATION : I was present and directly participated in the entire procedure (including opening and closing). Cosigned by Mina Washington MD at 08/19/2021 1:26 PM NDT INSPECTOR INSPECTOR INSPECTOR documented in this encounter Plan of Treatment Not on file documented as of this encounter Procedures Procedure Name Priority Date/Time Associated Diagnosis Comments EGFR Routine 08/20/2021 3:00 AM NDT INSPECTOR DIFFERENTIAL AUTO Routine 08/20/2021 3:0 0 AM NDT INSPECTOR CBC WITH AUTO DIFFERENTIAL Routine 08/20/2021 3:00 AM NDT INSPECTOR BASIC METABOLIC PANEL Routine 08/20/2021 3:00 AM NDT INSPECTOR XR SHOULDER RIGHT 2 OR MORE VIEWS IP Routine 08/19/2021 10:19 AM NDT INSPECTOR ARTHROPLASTY REVERSE TOTAL SHOULDER - TORNIER 08/19/2021 8:13 AM NDT INSPECTOR Rotator cuff tear arthropathy of right shoulder Special Needs Tornier Perform B ABO / RH CONFIRMATION TESTING STAT 08/19/2021 7:40 AM NDT INSPECTOR ABO/RH STAT 08/19/2021 6:26 AM NDT INSPECTOR ANTIBODY SCREEN STAT 08/19/2021 6:26 AM NDT INSPECTOR TYPE AND SCREEN STAT 08/19/2021 6:26 AM NDT INSPECTOR documented in this encounter Results * eGFR (08/20/2021 3:00 AM NDT INSPECTOR) eGFR 89 mL/min/1.7 3 m2 [facility] Comment: Interpretive Data Reference Interval Normal ?>/= 90 mL/min/1.73m2 Mildly decreased* ? 60 - 89 mL/min/1.73m2 Mildly to moderately decreased ?45 - 59 mL/min/1.73m2 Moderately to severely decreased ??30 - 44 mL/min/1.73m2 Severely decreased ?15 - 29 mL/min/1.73m2 Kidney Failure ?< 15 ??mL/min/1.73m2 *Relative to young adult level Estimated glomerular filtration rate is determined by the CKD-EPI equation recommended by the National Kidney Foundation (KDIGO 2012 Clinical Practice Guideline for the Evaluation and Management of Chronic Kidney Disease. Kidney Intnl Suppl Oct 2012;3:1). The CKD-EPI equation should not be used for patients with unstable renal function and has not been validated in children and those over 70. Current interpretive data was last reviewed 2020 Blood 08/20/2021 3:00 AM NDT INSPECTOR 08/20/2021 3:06 AM NDT INSPECTOR us Mina Washington MD LAB BLOOD ORDERABLES Final Result [facility] [id number] [facility]. [place] [address] * (ABNORMAL) Differential, auto (08/20/2021 3:00 AM NDT INSPECTOR) Neutrophil abs 4.3 1.7 - 6.5 K/cumm [facility] Imm gran abs 0.0 0.0 - 0.1 K/cumm [facility] Lymphocyte abs 0.7(L) 0.8 - 3.3 K/cumm [facility] Monocyte abs 0.4 0.2 - 0.8 K/cumm [facility] Eosinophil abs 0.1 0.0 - 0.5 K/cumm [facility] Basophil abs 0.0 0.0 - 0.1 K/cumm [facility] Neutrophil pct 76.6 % [facility] Comment: Interpretive Data Percent cell count reference ranges are not reported, since discordance with absolute values may lead to misinterpretation of CBC data. Current Interpretive Data was last revised on 2018. Imm gran pct 0.4 % [facility] Comment: Interpretive Data Percent cell count reference ranges are not reported, since discordance with absolute values may lead to misinterpretation of CBC data. Current Interpretive Data was last revised on 2018. Lymphocyte pct 12.9 % [facility] Comment: Interpretive Data Percent cell count reference ranges are not reported, since discordance with absolute values may lead to misinterpretation of CBC data. Current Interpretive Data was last revised on 2018. Monocyte pct 7.8 % [facility] Comment: Interpretive Data Percent cell count reference ranges are not reported, since discordance with absolute values may lead to misinterpretation of CBC data. Current Interpretive Data was last revised on 2018. Eosinophil pct 1.9 % [facility] Comment: Interpretive Data Percent cell count reference ranges are not reported, since discordance with absolute values may lead to misinterpretation of CBC data. Current Interpretive Data was last revised on 2018. Basophil pct 0.4 % [facility] Comment: Interpretive Data Percent cell count reference ranges are not reported, since discordance with absolute values may lead to misinterpretation of CBC data. Current Interpretive Data was last revised on 2018. Blood 08/20/2021 3:00 AM NDT INSPECTOR 08/20/2021 3:06 AM NDT INSPECTOR us Mina Washington MD LAB BLOOD ORDERABLES Final Result [facility] [id number] [facility]. [place] [address] * (ABNORMAL) Basic metabolic panel (08/20/2021 3:00 AM NDT INSPECTOR) Sodium 134(L) 135 - 145 mmol/L [facility] Potassium, pl 4.0 3.3 - 4.9 mmol/L [facility] Chloride 101 97 - 110 mmol/L [facility] CO2 23 22 - 32 mmol/L [facility] Anion gap 11 2 - 15 mmol/L [facility] BUN 8 8 - 25 mg/dL [facility] Creatinine 0.80 0.80 - 1.30 mg/dL [facility] Glucose 123 70 - 199 mg/dL [facility] Comment: Interpretive Data Fasting glucose >/= 126 mg/dl is diagnostic for diabetes. ?? Fasting is defined as no caloric intake for at least 8 hours. Fasting glucose between 100 mg/dl to 125 mg/dl is diagnostic of prediabetes. In a patient with classic symptoms of hyperglycemia or hyperglycemic crisis, a random glucose >/= 200 mg/dl is diagnostic for diabetes. In the absence of unequivocal hyperglycemia, results should be confirmed by repeat testing. The classification and Diagnosis of Diabetes Diabetes Care 2017;40 (Suppl. 1):S11. Current interpretive data was last revised 2017. Calcium 8.6 8.5 - 10.3 mg/dL [facility] Blood 08/20/2021 3:00 AM NDT INSPECTOR 08/20/2021 3:06 AM NDT INSPECTOR Narrative [facility] - 08/20/2021 3:40 AM NDT INSPECTOR Daily for three days. Mina Washington MD LAB BLOOD ORDERABLES Final Result [facility] [id number] [facility]. [place] [address] * (ABNORMAL) CBC with auto differential (08/20/2021 3:00 AM NDT INSPECTOR) Pathologist [facility] WBC 5.7 3.8 - 9.9 K/cumm [facility] Hgb 11.2(L) 13.0 - 17.5 g/dL [facility] Hct 32.8(L) 38.9 - 50.3 % [facility] Plt 131(L) 150 - 400 K/cumm [facility] MPV 9.5 9.1 - 12.3 fL [facility] RBC 3.30(L) 4.30 - 5.80 M/cumm [facility] MCV 99.4(H) 81.3 - 96.4 fL [facility] MCH 33.9(H) 27.1 - 33.3 pg [facility] MCHC 34.1 32.3 - 35.7 g/dL [facility] RDW CV 13.0 11.1 - 14.9 % [facility] RDW SD 47.1 35.7 - 48.1 fL [facility] NRBC abs 0.00 0.00 - 0.01 K/cumm [facility] Blood 08/20/2021 3:00 AM NDT INSPECTOR 08/20/2021 3:06 AM NDT INSPECTOR Narrative [facility] - 08/20/2021 3:08 AM NDT INSPECTOR Daily for three days. us Mina Washington MD LAB BLOOD ORDERABLES Final Result [facility] [id number] [facility]. [place] [address] * XR Shoulder Right 2+ View (08/19/2021 10:19 AM NDT INSPECTOR) Anatomical Region Laterality Modality Upper Extremities, Shoulder Right Comp uted Radiography 08/19/2021 10:2 3 AM NDT INSPECTOR Impressions 08/19/2021 10:23 AM NDT INSPECTOR 1. New reverse right total shoulder arthroplasty for rotator cuff tear arthropathy. Electronically signed by: Anthony Gallagher M.D. Narrative 08/19/2021 10:23 AM NDT INSPECTOR EXAMINATION: XR SHOULDER RIGHT 2 OR MORE VIEWS HISTORY: Right rotator cuff tear arthropathy FINDINGS: 2 view portable examination of the right shoulder is compared with a study from 02/20/2021. There is a new reverse right total shoulder arthroplasty in expected position, with postoperative soft tissue gas or there is no fracture. Procedure Note Anthony Gallagher MD - 08/19/2021 EXAMINATION: XR SHOULDER RIGHT 2 OR MORE VIEWS HISTORY: Right rotator cuff tear arthropathy FINDINGS: 2 view portable examination of the right shoulder is compared with a study from 02/20/2021. There is a new reverse right total shoulder arthroplasty in expected position, with postoperative soft tissue gas or there is no fracture. IMPRESSION: 1. New reverse right total shoulder arthroplasty for rotator cuff tear arthropathy. Electronically signed by: Anthony Gallagher M.D. Mina Washington MD IMG XR PROCEDURES Fin al Result * ABO / Rh Confirmation Testing (08/19/2021 7:40 AM NDT INSPECTOR) ABO/Rh Confirmation O Positive [facility] Blood 08/19/2021 7:40 AM NDT INSPECTOR 08/19/2021 7:43 AM NDT INSPECTOR Evelyn Bradford NP LAB BLOOD ORDERABLES Final Result Performing Organization Address [facility] Co de Phone Number [employer] [facility] [address] [address] [address] * Antibody screen (08/19/2021 6:26 AM NDT INSPECTOR) Donya, indirect, Gel Interpretation Negative ABSC [facility] Blood 08/19/2021 6:26 AM NDT INSPECTOR 08/19/2021 6:30 AM NDT INSPECTOR Narrative [facility] - 08/19/2021 7:20 AM NDT INSPECTOR Has the patient had Daratumumab or Isatuximab in the past 6 months?->Unknown Evelyn Bradford NP LAB BLOOD BANK TEST ORDERAB LES Final Result Performing Organization Address City/[facility]/ZIP Co de Phone Number [facility] [phone] [facility] [place] [address] * ABO/Rh (08/19/2021 6:26 AM NDT INSPECTOR) ABO/Rh O Positive [facility] Blood 08/19/2021 6:26 AM NDT INSPECTOR 08/19/2021 6:30 AM NDT INSPECTOR Narrative [facility] - 08/19/2021 7:19 AM NDT INSPECTOR Has the patient had Daratumumab or Isatuximab in the past 6 months?->Unknown Evelyn Bradford NP LAB BLOOD BANK TEST ORDERAB LES Final Result [facility] [id number] [facility]. [place] [address] documented in this encounter Visit Diagnoses Diagnosis Rotator cuff tear arthropathy of right shoulder- Primary HLD (hyperlipidemia) Other and unspecified hyperlipidemia documented in this encounter Admitting Diagnoses Diagnosis Rotator cuff tear arthropathy of right shoulder documented in this encounter Administered Medications Inactive Administered Medications - up to 3 most recent administrations Medication Order MAR Action Action Date Dose Rate Site acetaminophen (TYLENOL) tablet 1,000 mg 1,000 mg, oral, Every 6 hours scheduled, First dose on Tue08/19/21 at 1200, Indications: PainIndications:Pain Given 08/20/2021 5:49 AM NDT INSPECTOR 1,000 mg Given 08/19/2021 11:20 PM NDT INSPECTOR 1,000 mg Given 08/19/2021 5:42 PM NDT INSPECTOR 1,000 mg allopurinoL (ZYLOPRIM) tablet 300 mg 300 mg, oral, Every morning, First dose on Viviane 08/20/21 at 0900 Given 08/20/2021 8:33 AM NDT INSPECTOR 300 mg aspirin enteric coated tablet 81 mg 81 mg, oral, 2 times daily, First dose (after last modification) on Tue08/19/21 at 2100, Do not crush, chew, cut, dissolve, open or otherwise manipulate tablet/capsule., Indications: Deep Vein Thrombosis PreventionIndications:Deep Vein Thrombosis Prevention Given 08/20/2021 8:33 AM NDT INSPECTOR 81 mg Given 08/19/2021 9:57 PM NDT INSPECTOR 81 mg atorvastatin (LIPITOR) tablet 10 mg 10 mg, oral, Daily, First dose on Viviane 08/20/21 at 0900 Given 08/20/2021 8:34 AM NDT INSPECTOR 10 mg bupivacaine preservative free 1,000 mg/500 mL (0.2%) infusion (premix) Continuous Rate: 6 mL/hr, Patient Bolus Dose: 4 mL, Lockout Interval: 30 Minutes, Catheter Site: Interscalene, Catheter Side: Right, perineural, Continuous, Starting on Tue08/19/21 at 1015, Until Viviane 08/20/21 at 1537, 500 mL, Routine Rate/Dose Verify 08/20/2021 3:11 AM NDT INSPECTOR Rate/Dose Verify 08/19/2021 7:56 PM NDT INSPECTOR New Bag 08/19/2021 10:14 AM NDT INSPECTOR 1,000 mg ceFAZolin (ANCEF) 1 gram/10 mL in sterile water (premix) 1,000 mg 1,000 mg, intravenous, at 200 mL/hr, Administer over 3 Minutes, Every 8 hours scheduled, First dose on Tue08/19/21 at 1600, For 2 doses, Indications: Prophylaxis, SurgicalIndications:Prophylaxis, Surgical Given 08/19/2021 11:20 PM NDT INSPECTOR 1,000 mg 200 mL/hr Given 08/19/2021 3:42 PM NDT INSPECTOR 1,000 mg 200 mL/hr cholecalciferol (VITAMIN D-3) tablet 1,000 Units 1,000 Units, oral, Every morning, First dose on Viviane 08/20/21 at 0900 Given 08/20/2021 8:34 AM NDT INSPECTOR 1,000 Units cyanocobalamin (Vitamin B-12) tablet 1,000 mcg 1,000 mcg, oral, Every morning, First dose on Viviane 08/20/21 at 0900, Indications: Prevention of Vitamin B12 DeficiencyIndications:Prevention of Vitamin B12 Deficiency Given 08/20/2021 8:34 AM NDT INSPECTOR 1,000 mcg docusate sodium (COLACE) capsule 100 mg 100 mg, oral, 2 times daily, First dose on Tue08/19/21 at 1145, Hold for diarrhea, Indications: constipationIndications:constipation Given 08/20/2021 8:33 AM NDT INSPECTOR 100 mg Given 08/19/2021 9:57 PM NDT INSPECTOR 100 mg Given 08/19/2021 11:51 AM NDT INSPECTOR 100 mg fenofibrate nanocrystallized (TRICOR) tablet 48 mg 48 mg, oral, Daily, First dose on Viviane 08/20/21 at 0900 Given 08/20/2021 8:34 AM NDT INSPECTOR 48 mg Lactated Ringer's (LR) infusion 30 mL/hr, intravenous, Continuous, Starting on Tue08/19/21 at 0630, For 4 hours, Pre-Op, Use a 500 ml bag for End Stage Renal Disease Patients. Discontinue if fluid still running once patient arrives to floor. New Bag 08/19/2021 8:46 AM NDT INSPECTOR Rate/Dose Verify 08/19/2021 8:09 AM NDT INSPECTOR 30 mL/h r New Bag 08/19/2021 6:27 AM NDT INSPECTOR 30 mL/hr 30 mL/hr oxyCODONE (ROXICODONE) tablet 5 mg 5 mg, oral, Every 4 hours PRN, 1st line for pain, Starting on Tue08/19/21 at 1107, May repeat in 1 hour if pain is uncontrolled or increasing. Max 2 doses within 1 dosing interval., Indications: PainIndications:Pain Given 08/20/2021 8:32 AM NDT INSPECTOR 5 mg pregabalin (LYRICA) capsule 150 mg 150 mg, oral, 3 times daily, First dose on Tue08/19/21 at 1600 Given 08/20/2021 8:33 AM NDT INSPECTOR 150 mg Given 08/19/2021 9:57 PM NDT INSPECTOR 150 mg Given 08/19/2021 3:42 PM NDT INSPECTOR 150 mg sodium chloride 0.9% infusion 100 mL/hr, intravenous, Continuous, Starting on Tue08/19/21 at 1145, May discontinue IVFs after patient with good PO intake and voiding without difficulty Rate/Dose Verify 08/19/2021 1:00 PM NDT INSPECTOR 100 mL/hr 100 mL/hr New Bag 08/19/2021 11:45 AM NDT INSPECTOR 100 mL/hr 100 mL/hr documented in this encounter Discontinued Medications Medication Sig Discontinue Reason Start Date End Da te diclofenac sodium (VOLTAREN) 1 % gel Apply topically as needed Reorder 01/10/2021 08/19/[address] (VOLTAREN) 75 mg EC tablet Take 75 mg by mouth as needed Stop Taking at Discharge 01/02/2021 08/20/2021 documented as of this encounter Historical Medications * This list may reflect changes made after this encounter. diclofenac sodium (VOLTAREN) 1 % gel Apply topically as needed DO NOT APPLY TO RIGHT SHOULDER SURGICAL INCISION. 08/19/2021 added in this encounter Active and Recently Administered Medications Times are shown in NDT INSPECTOR. Scheduled Medication Order 08/18/2021 08/19/2021 08/20/2021 acetaminophen (TYLENOL) tablet 1,000 mg 1,000 mg, oral, Every 6 hours scheduled, First dose on Tue08/19/21 at 1200, Indications: Pain 1251 (Given - Provider: Francesca Lam RN)1742 (Given - Provider: Francesca Lam RN)2320 (Given - Provider: Suman Chandler RN) 0549 (Given - Provider: Suman Chandler RN) allopurinoL (ZYLOPRIM) tablet 300 mg 300 mg, oral, Every morning, First dose on Viviane 08/20/21 at 0900 0833 (Given - Provider: Colton Canales RN) aspirin enteric coated tablet 81 mg(Linked Group 1) 81 mg, oral, 2 times daily, First dose (after last modification) on Tue08/19/21 at 2100, Do not crush, chew, cut, dissolve, open or otherwise manipulate tablet/capsule., Indications: Deep Vein Thrombosis Prevention 2157 (Given - Provider: Suamn Chandler RN) 0833 (Given - Provider: Colton Canales RN) atorvastatin (LIPITOR) tablet 10 mg 10 mg, oral, Daily, First dose on Viviane 08/20/21 at 0900 0834 (Given - Provider: Colton Canales RN) ceFAZolin (ANCEF) 1 gram/10 mL in sterile water (premix) 1,000 mg (COMPLETED) 1,000 mg, intravenous, at 200 mL/hr, Administer over 3 Minutes, Every 8 hours scheduled, First dose on Tue08/19/21 at 1600, For 2 doses, Indications: Prophylaxis, Surgical 1542 (Given - Provider: Francesca Lam RN)2320 (Given - Provider: Suman Chandler RN) ceFAZolin (ANCEF) 1 gram/10 mL in sterile water (premix) 2,000 mg (COMPLETED) 2,000 mg, intravenous, at 400 mL/hr, Administer over 3 Minutes, Once, On Tue08/19/21 at 0630, For 1 dose, Pre-Op, Administer within 60 minutes of incision., Indications: Prophylaxis, Surgical 0809 (Given - Provider: Darnell Rios CRNA) cholecalciferol (VITAMIN D-3) tablet 1,000 Units 1,000 Units, oral, Every morning, First dose on Tue08/20/21 at 0900 0834 (Given - Provider: Colton Canales RN) cyanocobalamin (Vitamin B-12) tablet 1,000 mcg 1,000 mcg, oral, Every morning, First dose on Viviane 08/20/21 at 0900, Indications: Prevention of Vitamin B12 Deficiency 0834 (Given - Provider: Colton Canales RN) docusate sodium (COLACE) capsule 100 mg 100 mg, oral, 2 times daily, First dose on Tue08/19/21 at 1145, Hold for diarrhea, Indications: constipation 1151 (Given - Provider: Francesca Lam RN)2157 (Given - Provider: Suman Chandler, SUKUMAR) 0833 (Given - Provider: Colton Canales, SUKUMAR) fenofibrate nanocrystallized (TRICOR) tablet 48 mg 48 mg, oral, Daily, First dose on Viviane 08/20/21 at 0900 0834 (Given - Provider: Colton Canales RN) pregabalin (LYRICA) capsule 150 mg 150 mg, oral, 3 times daily, First dose on Tue08/19/21 at 1600 1542 (Given - Provider: Francesca Lam RN)2157 (Given - Provider: Suman Chandler, SUKUMAR) 0833 (Given - Provider: Colton Canales RN) sodium chloride 0.9% flush 0.5-20 mL 0.5-20 mL, intra-catheter, Every 8 hours scheduled, First dose on Tue08/19/21 at 1400, Flush volume based on line type and size. , Indications: Flushing 1458 (Not Given - Provider: Francesca Lam RN - Reason: IV Infusing)2324 (Not Given - Provider: Suman Chandler RN - Reason: IV Infusing) 0813 (Not Given - Provider: Colton Canales RN - Reason: Order parameters not met - Comment: saline lock) Continuous Medication Order 08/18/2021 08/19/2021 08/20/2021 bupivacaine preservative free 1,000 mg/500 mL (0.2%) infusion (premix) Continuous Rate: 6 mL/hr, Patient Bolus Dose: 4 mL, Lockout Interval: 30 Minutes, Catheter Site: Interscalene, Catheter Side: Right, perineural, Continuous, Starting on Tue08/19/21 at 1015, Until Ivviane 08/20/21 at 1537, 500 mL, Routine 1014 (New Bag - Provider: Scarlet Castelan RN)1956 (Rate/Dose Verify - Provider: Suman Chandler RN) 0311 (Rate/Dose Verify - Provider: Suman Chandler RN) Lactated Ringer's (LR) infusion () 30 mL/hr, intravenous, Continuous, Starting on Tue08/19/21 at 0630, For 4 hours, Pre-Op, Use a 500 ml bag for End Stage Renal Disease Patients. Discontinue if fluid still running once patient arrives to floor. 0627 (New Bag - Provider: Gabriela Edwards RN)0809 (Rate/Dose Verify - Provider: Darnell Rios CRNA)0845 (Paused - Provider: Darnell Rios CRNA - Comment: Switch to gravity)0846 (New Bag - Provider: Darnell Rios CRNA)0940 (Anesthesia Volume Adjustment - Provider: Darnell Rios CRNA) sodium chloride 0.9% infusion 100 mL/hr, intravenous, Continuous, Starting on Tue08/19/21 at 1145, May discontinue IVFs after patient with good PO intake and voiding without difficulty 1145 (New Bag - Provider: Francesca Lam RN)1300 (Rate/Dose Verify - Provider: Francesca Lam RN) PRN Medication Order 08/18/2021 08/19/2021 08/20/2021 ceFAZolin (ANCEF) injection (CANCELED) Administer over 3 Minutes, As needed, Starting on Tue08/19/21 at 0850, Intra-Op 0850 (Given - Provider: Mina Washington MD - Comment: irrigation with 1L NS) ondansetron (ZOFRAN) injection 4 mg 4 mg, intravenous, Administer over 2 Minutes, Every 6 hours PRN, nausea, vomiting, Starting on Tue08/19/21 at 1107, Proceed to promethazine if no relief within 30 minutes., Indications: Nausea and Vomiting oxyCODONE (ROXICODONE) tablet 5 mg 5 mg, oral, Every 4 hours PRN, 1st line for pain, Starting on Tue08/19/21 at 1107, May repeat in 1 hour if pain is uncontrolled or increasing. Max 2 doses within 1 dosing interval., Indications: Pain 0832 (Given - Provid er: Colton Canales RN) promethazine (PHENERGAN) tablet 25 mg 25 mg, oral, Every 6 hours PRN, nausea, vomiting, Starting on Tue08/19/21 at 1107, If not relieved by ondansetron within 30 minutes., Indications: Nausea and Vomiting sodium chloride 0.9% flush 0.5-20 mL 0.5-20 mL, intra-catheter, As needed, line care, Starting on Tue08/19/21 at 1107, Flush volume based on line type and size. Flush before and after each use. , Indications: Flushing sodium chloride 0.9% irrigation (CANCELED) As needed, Starting on Tue08/19/21 at 0850, Intra-Op 0850 (Given - Provider: Mina Washington MD - Comment: with 1Gm Ancef)0851 (Given - Provider: Mina Washington MD - Comment: on back table) Linked Groups Order Group 1: aspirin enteric coated tablet 81 mgJump to med 81 mg, oral, 2 times daily, First dose (after last modification) on Tue08/19/21 at 2100, Do not crush, chew, cut, dissolve, open or otherwise manipulate tablet/capsule., Indications: Deep Vein Thrombosis Prevention documented in this encounter Orders Medications Ordered That Mark ht Not Have Been Administered Count Last Ordered Date First Ordered Date acetaminophen (TYLENOL) tablet 500 mg 1 aspirin enteric coated tablet 325 mg 1 08/03 ceFAZolin (ANCEF) 1 gram/10 mL in sterile water (premix) 2,000 mg 1 08/19/2021 ceFAZolin (ANCEF) injection 1 08/19/2021 diphenhydrAMINE (BENADRYL) i njection 12.5 mg 1 08/19/2021 famotidine (PEPCID) injection 20 mg 1 08/19 fentaNYL (SUBLIMAZE) preserv ative free injection 25 mcg 1 08/19/2021 hydrALAZINE (APRESOLINE) injection 5 mg 1 1 10/19/2020 HYDROcodone-acetaminophen (N ORCO) 5-325 mg per tablet 1 tablet 1 08/19/2021 HYDROmorphone (DILAUDID) injection 0.2 mg 1 08/19/2021 labetaloL (NORMODYNE,TRANDAT E) injection 5 mg 1 08/19/2021 Lactated Ringer's (LR) infusion 1 meperidine (DEMEROL) preserv ative free injection 12.5 mg 1 08/19/2021 naloxone (NARCAN) 0.4 mg/mL injection 0.04-0.4 mg 1 08/19/2021 ondansetron (ZOFRAN) injection 4 mg 2 08/19 prochlorperazine (COMPAZINE) injection 5 mg 1 08/19/2021 promethazine (PHENERGAN) tablet 25 mg 1 scopolamine patch 72 hour 1 patch 1 021 sodium chloride 0.9% flush 0.5-20 mL 3 08/03 sodium chloride 0.9% irrigation 1 Diet Count Last Ordered Date First Orde red Date ADULT DISCHARGE DIET 1 08/19/2021 Nursing Count Last Ordered Date First Orde red Date DISCHARGE ACTIVITY 8 08/19/2021 DISCHARGE CALL PROVIDER 2 08/19/2021 DISCHARGE DRESSING 1 08/19/2021 DISCHARGE INSTRUCTIONS 8 08/19/2021 CORE MEASURES Count Last Ordered Date First Ord ered Date REASON FOR NO VTE PROPHYLAXI S - HOSPITAL ADMISSION - MEDICATIONS 1 08/19/2021 documented in this encounter Care Teams Medical Editor Relationship Specialty Start Date End Date Cassandra Mathis DO PCP - General Family Medicine 02/10/21 documented as of this encounter
--- OUTSIDE RECORDS SUMMARY | 2024-10-16 02:24 | XMS_ITS | Encounter Summary ---
Author Organization [facility] Address [address] [place] [address] Phone Care Team Providers Care E Commerce Analyst Name Role Phone Cassandra Mathis DO Primary Care Provider [phone]- [phone] Reason for Referral * Diagnostic Imaging (Routine) - Closed Specialty Diagnoses / Procedures Referred By Contac t Referred To Contact Diagnoses Rotator cuff tear arthropathy of right shoulder Procedures XR Shoulder Right 2+ View Mina Washington MD [address] [facility] [address] [place] [address] Phone: tel: fax: [facility] [address] [place] [address] Referral ID Status Reason Start Date Expiration Date Visits Re quested Visits Authorized [id number] Closed 09/04/2021 10/04/2022 1 1 DRYER Reason for Visit * Consultation (Routine) - Closed Specialty Diagnoses / Procedures Referred By Contac t Referred To Contact Orthopedic Surgery Diagnoses Right shoulder pain, unspecified chronicity Cassandra Mathis DO Phone: tel: fax: [facility] (All Locations) Referral ID Status Reason Start Date Expiration Date V isits Requested Visits Authorized [id number] Closed Specialty Services Required 09/02/2021 10/02/2022 1 1 Encounter Details Date Type Department Care Team (Late st Contact Info) Description 09/04/2021 10:15 AM CAN DRYER Office Visit [facility] Orthopaedic Surgery [address] [place] [address] [place] [address] Mina Washington MD [address] [facility] [address] [place] [address] Rotator cuff tear arthropathy of right shoulder (Primary Dx); Status post orthopedic surgery, follow-up exam Social History Tobacco Use Types Packs/Day Years [...] on file documented as of this encounter Progress Notes * Mina Washington MD - 09/04/2021 10:15 AM CST Images from the original note were not included. POST-OPERATIVE PATIENT VISIT INTERIM HISTORY Date of Surgery: August 19, 2021 Procedure: Right reverse shoulder arthroplasty Chung Mueller Jr. returns today for follow-up now 2 weeks from surgery. He is very happy with his progress. PHYSICAL EXAMINATION Surgical incisions well healed without sign infection. Tegaderm dressing removed and Steri-Strips applied. Neurovascular intact throughout. REVIEW OF X-RAYS/STUDIES I ordered and independently interpreted 4 views right shoulder today, these show reverse arthroplasty in appropriate positioning. Assessment/Plan IMPRESSION/DIAGNOSIS Two weeks status post above, doing well TREATMENT PLAN Patient is making great progress. He will continue to work with physical therapy on early range of motion. He may discontinue his sling. We will see him back in 4 weeks. We reviewed precautions and the patient voiced understanding. All questions were answered today. FOLLOW-UP Four weeks new right shoulder x-rays, anticipate beginning TSA/rsa PT My total encounter time on 09/04/2021 was 15 minutes which was spent in the activities documented inthe note. This includes time spent prior to the visit and after the visit in direct care of the patient. This time does not include time spent in any separately reportable services. Mina Washington MD It Risk And Assurance Manager of Orthopedic Surgery Shoulder and Elbow Service [facility] Orthopedics [facility] Dr. Mina Washington dictating using Fluency Direct. Agricultural Crop Farm Manager variances may occur. DRYER documented in this encounter Plan of Treatment Not on file documented as of this encounter Procedures Procedure Name Priority Date/Time Associated Diagnosis Comments XR SHOULDER RIGHT 2 OR MORE VIEWS Schedule Routine, Read Routine (OP Routine) 09/04/2021 10:56 AM CAN DRYER Rotator cuff tear arthropathy of right shoulder documented in this encounter Results * XR Shoulder Right 2+ View (09/04/2021 10:56 AM CAN DRYER) Anatomical Region Laterality Modality Upper Extremities, Shoulder Right Comp uted Radiography 09/04/2021 11:2 3 AM CAN DRYER Impressions 09/04/2021 11:23 AM CAN DRYER Reverse aary-ozb-ufednc right total shoulder arthroplasty in near-anatomic position. Electronically signed by: Efrem Natarajan M.D. Narrative 09/04/2021 11:23 AM CAN DRYER EXAMINATION: Right shoulder minimum 2 views HISTORY: Right rotator cuff arthropathy FINDINGS: 4 views of the right shoulder were performed with comparison made to 08/19/2021. There is a reverse envi-uss-btdxjb right total shoulder arthroplasty in near-anatomic position. There is no periprosthetic lucency or fracture. There is mild acromioclavicular osteoarthritis. Soft tissue gas has resolved. Procedure Note Efrem Natarajan MD PhD - 09/04/2021 EXAMINATION: Right shoulder minimum 2 views HISTORY: Right rotator cuff arthropathy FINDINGS: 4 views of the right shoulder were performed with comparison made to 08/19/2021. There is a reverse epxz-lxv-ojkgjm right total shoulder arthroplasty in near-anatomic position. There is no periprosthetic lucency or fracture. There is mild acromioclavicular osteoarthritis. Soft tissue gas has resolved. IMPRESSION: Reverse ikua-drk-eutrjy right total shoulder arthroplasty in near-anatomic position. Electronically signed by: Efrem Natarajan M.D. Mina Washington MD IMG XR PROCEDURES Fin al Result documented in this encounter Visit Diagnoses Diagnosis Rotator cuff tear arthropathy of right shoulder- Primary Status post orthopedic surgery, follow-up exam documented in this encounter Orders Outpatient Referral Count Last Ordered Date Fir st Ordered Date AMB REFERRAL TO ORTHOPEDIC SURGERY 1 2020 documented in this encounter Care Teams E Commerce Analyst Relationship Specialty Start Date End Date Cassandra Mathis DO PCP - General Family Medicine 02/10/21 documented as of this encounter
--- OUTSIDE RECORDS SUMMARY | 2024-10-16 02:24 | XMS_ITS | Encounter Summary ---
Author Organization [facility] Address [address] [place] [address] Phone Care Team Providers Care Integrated Circuit Ic Layout Designer Name Role Phone Cassandra Mathis DO Primary Care Provider [phone]- [phone] Encounter Details Date Type Department Care Team (Late st Contact Info) Description 08/18/2021 Telephone [facility] Orthopaedic Surgery [address] [facility] 1[address] [place] [address] Mina Washington MD [address] [facility] [address] [place] [address] Social History Tobacco Use Types Packs/Day Years [...] on file documented as of this encounter Miscellaneous Notes * Telephone Encounter - Audelia Jameson LPN - 08/18/2021 10:40 AM CST Call placed and spoke to pt to provide surgery arrival time of 6:00 am. Pt voiced understanding. LING CONTRACTOR documented in this encounter Plan of Treatment Not on file documented as of this encounter Visit Diagnoses Not on filedocumented in this encounter Care Teams Integrated Circuit Ic Layout Designer Relationship Specialty Start Date End Date Cassandra Mathis DO PCP - General Family Medicine 02/10/21 documented as of this encounter
--- OUTSIDE RECORDS SUMMARY | 2024-10-16 02:24 | XMS_ITS | Encounter Summary ---
Author Organization [facility] Healthcare Address [address] [place] [address] Care Team Providers Care Director Biologics Name Role Phone Cassandra Mathis DO Primary Care Provider [phone]- [phone] Encounter Details Date Type Department Care Team (Late st Contact Info) Description 08/19/2021 8:09 AM STACKER STRAIGHTENER Anesthesia Event [facility] Operating Room [address] [place] [address] Kristina Tidwell MD [address] [place] [address] Anthony Stevens CRNA [address] [place] [address] Anesthesia Record Procedure Summary Procedure Name Responsible Anesthesiologist Anesthesia Start Time Anesthesia Stop Time Right reverse shoulder arthroplasty (Right: Shoulder) Kristina Tidwell MD 08/19/21 0809 08/19/21 0956 Events Date Time Event Comment 08/19/2021 0548 In Preop 0723 0730 AN Equip Check 0750 Time out - Regional 0750 Face Time 0750 Start Supplemental O2 0750 An Block Induction The patie nt was reevaluated immediately before moderate or deep sedation and before anesthesia induction. 0758 Block Placed 0809 An Start 0813 In Room 0813 An Start Data 0820 An Induction The patient was reevaluated immediately before moderate or deep sedation use and before anesthesia induction. 0821 An Intubation 0822 Anesthesia Ready 0845 Proc Start 0845 Incision Start 0947 An Extubation 0949 an stop data 0950 Proc Fin 0951 Out of Room 0956 An Stop 0956 Handoff to RN I completed my handoff to the receiving nurse during which we: 1. Patient identified 2. Responsible provider identified 3. Pertinent medical history reviewed 4. Procedure type and surgical course discussed 5. Intraoperative anesthetic management and any significant issues discussed 6. Expectations and concerns for postop period discussed 7. Questions solicited from receiving nurse 8. Patient disposition at the time of handoff: PACU Meds Name Total midazolam 2 mg/2 mL 4 mg fentaNYL PF 200 mcg Lidocaine IV 1% PF 50 mg Lido Infilt 1% 2 mL propofol 100 mg rocuronium 30 mg neostigmine syringe 1 mg/mL 3 mg glycopyrrolate 0.4 mg ondansetron PF 8 mg bupivacaine 0.5 % PF 30 mL ceFAZolin (ANCEF) 1 gram/10 mL in steril e water (premix) 2,000 mg 2,000 mg ePHEDrine 50 mg Lactated Ringer's (LR) infusion 1,500 mL * Agents Name O2 Air Sevoflurane Inspired Sevoflurane * Blood No blood administrations on file. Lines, Drains, and Airways Type Details Placement Removal Peripheral IV Placement Date: 08/19/21; Placement Time: 0618; Catheter Size: 20 G; Orientation: Anterior, Left; Location: Forearm; Site Prep: Chlorhexidine; Technique: Anatomical landmarks; Inserted by: George PATINO; Insertion Attempts: 1; Patient Tolerance: Tolerated well; Removal Date: 08/20/21; Removal Time: 1115 08/19/21 0618 by Gabriela Edwards RN 08/20/21 1115 by Jacquelin Mahoney, RN PNB catheter Placement Date: 08/19/21; Placement Time: 0800 (created via procedure documentation); Pt Tolerance: brachial plexus - interscalene; Removal Date: Injectable, Topical, None; Removal Time: Tolerated well; 08/22/21; 1434 08/19/21 0800 by Kristina Tidwell MD 08/22/21 1434 by Ann Mtz NP RETIRED Surgical Site 08/19/21; 0846; Ri ght; Shoulder; 09/04/24 (Retired LDA, Removed/Completed by [facility] with LDA Utility); 1213 (Retired LDA, Removed/Completed by [facility] with LDA Utility) 08/19/21 0846 by Amy Rogers RN 09/04/24 1213 by Discharge Provider, Automatic ETT Placement Date: 08/19/21; Placement Time: 850 (created via procedure documentation); Mask Ventilation: 0; Technique: Direct laryngoscopy; Type: Reinforced tube; Single Lumen Tube Size: 8 mm; Cuffed: Yes; Laryngoscope: Sha; Blade Size: 4; Location: Oral; Grade View: Grade I; Insertion Attempts: 1; Placement Verification: Auscultation, Capnometry; Removal Date: 08/19/21; Removal Time: 94608/19/21 08 by Darnell Rios CRNA 08/19/21946 by Darnell Rios CRNA documented in this encounter Social History Tobacco Use Types Packs/Day Years [...] on file documented as of this encounter OR Notes * Anesthesia Postprocedure Evaluation - Kristina Tidwell MD - 08/19/2021 10:06 AM CST Patient: Chung Mueller Jr. Procedure Summary Date: 08/19/21 Room / Location: [facility] OPERATING ROOM 10 [facility] OPERATING ROOM Anesthesia Start: 808 Anesthesia Stop: 955 Procedure: ARTHROPLASTY RIGHT REVERSE TOTAL SHOULDER - TORNIER (Right Shoulder) Diagnosis: Rotator cuff tear arthropathy of right shoulder (Rotator cuff tear arthropathy of right shoulder [M75.101, M12.811]) Surgeons: Mina Washington MD Responsible Provider: Kristina Tidwell MD Anesthesia Type: general, regional for postop pain per surgeon request, PNB - continuous catheter, PNB - single shot ASA Status: 2 Anesthesia Type: general, regional for postop pain per surgeon request, PNB - continuous catheter, PNB - single shot Last vitals BP 127/63 Pulse 83 Temp 36.2 ??C (97.2 ??F) (Core) Resp 14 SpO2 93% Anesthesia Post Evaluation Patient location during evaluation: PACU Patient participation: complete - patient participated Level of consciousness: fully awake Pain score: 0 Pain management: adequate Airway patency: adequate and patent Evidence of recall: no Cardiovascular status: hemodynamically stable and acceptable Respiratory status: acceptable and nasal cannula Hydration status: euvolemic Pt is: normothermic Nausea/Vomiting status: none No complications documented. KER STRAIGHTENER * Anesthesia Procedure Notes - Darnell Rios CRNA - 08/19/2021 8:50 AM CSTAssociated Order(s): Airway Airway Patient location: OR Urgency: elective Indications for airway management: anesthesia Difficult airway: no Staff: Placed by: JOINTER OPERATOR: Darnell Rios CRNA Airway prep: Preoxygenated: yes Patient position: sniffing Mask difficulty assessment: 0 - not attempted Spontaneous ventilation during airway: absent Sedation level during airway: GA Final airway details: Final airway type: endotracheal airway Tube type: reinforced tube ETT size: 8.0 mm Cuffed: yes Technique used for successful ETT placement: direct laryngoscopy Insertion site: oral Blade type: Sha Blade size: 4 Cormack-Lehane (direct): grade I - full view of glottis Cuff inflated with: air ETT to lips: 22 cm Placement verified by: auscultation and CO2 detection Airway secured with: silk tape Number of attempts: 1 KER STRAIGHTENER * Anesthesia Procedure Notes - Kristina Tidwell MD - 08/19/2021 8:00 AM CSTAssociated Order(s): Peripheral Block Peripheral Block Patient location during procedure: pre-op holding Reason for block: post-op pain management per surgeon request Block type: single shot Laterality: right Block type: intercostobrachial nerve block Procedure prep: Preprocedure checklist: patient identified, procedure contraindications assessed, site marked, procedure consent, surgical consent, IV checked, risks, benefits and alternatives discussed, monitors and equipment checked and timeout performed Patient position: sitting Procedure performed while patient: sedate with meaningful contact Monitoring: oximetry Supplemental O2: nasal cannula Prep solution: chlorhexidine/alcohol Peripheral nerve block: Technique: landmark(s) Needle type: short-bevel Needle gauge: 25G. Needle length: 50 mm Injection assessment: injection made incrementally with constant monitoring, negative aspiration for heme, no paresthesias noted, normal resistance to injection and see flowsheet for medication details Assessment: Block success: full evaluation pending Events: patient tolerated procedure well with no complications KER STRAIGHTENER * Anesthesia Procedure Notes - Kristina Tidwell MD - 08/19/2021 8:00 AM CSTAssociated Order(s): Peripheral Block Peripheral Block Patient location during procedure: pre-op holding Reason for block: post-op pain management per surgeon request Ultrasound image in chart or stored: yes Block type: catheter continuous infusion Laterality: right Block type: brachial plexus - interscalene Procedure prep: Preprocedure checklist: patient identified, procedure contraindications assessed, site marked, procedure consent, surgical consent, IV checked, risks, benefits and alternatives discussed, monitors and equipment checked and timeout performed Patient position: sitting and head of bed elevated Procedure performed while patient: sedate with meaningful contact Monitoring: oximetry Supplemental O2: nasal cannula Prep solution: chlorhexidine/alcohol PPE: provider hat/mask, sterile gloves, sterile drape and sterile probe cover and gel Skin infiltrated with lidocaine 1%: yes Peripheral nerve block: Technique: ultrasound guided Needle type: insulated, short-bevel and echogenic Needle gauge: 21 G Needle length: 80 mm Injection assessment: injection made incrementally with constant monitoring, local visualized surrounding nerve on ultrasound, negative aspiration for heme, no paresthesias noted, normal resistance to injection and see flowsheet for medication details Catheter: Catheter type: 20g non-stimulating catheter Catheter over needle length: 51 Catheter placement details: catheter position confirmed by ultrasound, no aspiration of heme, negative test dose, steri-strips, dermal adhesive and occlusive dressing applied (Mastisol [place]) Assessment: Block success: full evaluation pending Events: patient tolerated procedure well with no complications KER STRAIGHTENER * Anesthesia Preprocedure Evaluation - Kristina Tidwell MD - 08/05/2021 10:01 AM CDT Images from the original note were not included. [facility] Planning Preoperative Evaluation Record Evaluation type/location: [facility] Planned procedure site: [facility] OR Date: 08/05/21 Anesthesia Evaluation Procedure(s): [...] Hyperlipidemia Pertinent negatives: hypertension ; CAD ; AL ; CABG ; systolic/diastolic dysfunction w/o CHF [...] He agrees todecrease use. CMP ordered. Discussed [facility] location w/ CPAP attending we feel he [...] testing to be performed on 08/15/21 . [facility] will place the order for testing. Result to be reviewed by surgeon's office. . Preoperative evaluation performed by Evelyn Bradford NP on 08/05/21 at 10:52 AM. I have reviewed and agree with this Pre-Procedural Assessment performed by the above primary evaluating CHEMICAL PROCESS OPERATOR, who is currently in the CPAP CHEMICAL PROCESS OPERATOR Orientation interval. Signed by: Dinora Fink NP [...] Score: 0 Short Blessed Total Score: 4 DOS Physical Exam Medical history, medications, and allergies reviewed. Attestation: This PAT evaluation Airway Exam: Mallampati: III Cervical ROM: FROM Cardiovascular Exam: Rate: bradycardia Rhythm: regular Pulmonary Exam: LCTA, bilat Dental Exam: Upper dentures and lower dentures Anesthesia Plan ASA 2 My patient is approved for the Anesthesia Controlled Medication protocol when under care of a JOINTER OPERATOR Planned anesthesia: General, regional for postop pain per surgeon request, PNB - continuous catheter and PNB - single shot Team communication plan: oral ET tube Upper extremity: brachial plexus - interscalene and intercostobrachial nerve block Informed Consent: Anesthesia plan and risks discussed with patient. Consent and Attending signature: I and/or my designee have discussed the anesthesia plan, benefits, possible alternatives, parental presence at time of induction (if indicated), and clinically relevant risks that may include dental injury, unintentional awareness, and/or other complications. The patient and/or parent/legal guardian understand, and agree to proceed. All questions answered. KER STRAIGHTENER documented in this encounter Miscellaneous Notes * Addendum Note - Ann Mtz NP - 08/25/2021 8:25 AM STACKER STRAIGHTENER Addendum created 08/25/21824 by Ann Mtz NP LDA properties accepted KER STRAIGHTENER documented in this encounter Plan of Treatment Not on file documented as of this encounter Procedures Procedure Name Priority Date/Time Associated Diagnosis Comments AR AN PROCEDURE PLACEHOLDER Routine 08/19/2021 8:50 AM STACKER STRAIGHTENER AR AN ELECTIVE ENDOTRACHEAL AIRWAY Routine 08/19/2021 8:50 AM STACKER STRAIGHTENER AR AN PROCEDURE PLACEHOLDER Routine 08/19/2021 8:00 AM STACKER STRAIGHTENER AR AN PROCEDURE PLACEHOLDER Routine 08/19/2021 8:00 AM STACKER STRAIGHTENER BW IP ANE LDA PERIPHERAL NERVE CATHETER Routine 08/19/2021 8:00 AM STACKER STRAIGHTENER documented in this encounter Results * AR AN ELECTIVE ENDOTRACHEAL AIRWAY, AR AN PROCEDURE PLACEHOLDER (08/19/2021 8:50 AM STACKER STRAIGHTENER) Narrative Darnell Rios CRNA - 08/19/2021 8:50 AM STACKER STRAIGHTENER Darnell Rios CRNA ? 08/19/2021 ??8:51 AM Airway Patient location: OR Urgency: elective Indications for airway management: anesthesia Difficult airway: no Staff: Placed by: JOINTER OPERATOR: Darnell Rios CRNA Airway prep: Preoxygenated: yes Patient position: sniffing Mask difficulty assessment: 0 - not attempted Spontaneous ventilation during airway: absent Sedation level during airway: GA Final airway details: Final airway type: endotracheal airway Tube type: reinforced tube ETT size: 8.0 mm Cuffed: yes Technique used for successful ETT placement: direct laryngoscopy Insertion site: oral Blade type: Sha Blade size: 4 Cormack-Lehane (direct): grade I - full view of glottis Cuff inflated with: air ETT to lips: 22 cm Placement verified by: auscultation and CO2 detection Airway secured with: silk tape Number of attempts: 1 Kristina Tidwell MD ANESTHESIA ORDERABLES Fi nal Result * AR AN PROCEDURE PLACEHOLDER (08/19/2021 8:00 AM STACKER STRAIGHTENER) Kristina Billings MD - 08/19/2021 8:00 AM STACKER STRAIGHTENER Kristina Tidwell MD ? 08/19/2021 ??8:00 AM Peripheral Block Patient location during procedure: pre-op holding Reason for block: post-op pain management per surgeon request Block type: single shot Laterality: right Block type: intercostobrachial nerve block Procedure prep: Preprocedure checklist: patient identified, procedure contraindications assessed, site marked, procedure consent, surgical consent, IV checked, risks, benefits and alternatives discussed, monitors and equipment checked and timeout performed Patient position: sitting Procedure performed while patient: sedate with meaningful contact Monitoring: oximetry Supplemental O2: nasal cannula Prep solution: chlorhexidine/alcohol Peripheral nerve block: Technique: landmark(s) Needle type: short-bevel Needle gauge: 25G. Needle length: 50 mm Injection assessment: injection made incrementally with constant monitoring, negative aspiration for heme, no paresthesias noted, normal resistance to injection and see flowsheet for medication details Assessment: Block success: full evaluation pending Events: patient tolerated procedure well with no complications Kristina Tidwell MD ANESTHESIA ORDERABLES Fi nal Result * BW IP ANE LDA PERIPHERAL NERVE CATHETER, AR AN PROCEDURE PLACEHOLDER (08/19/2021 8:00 AM STACKER STRAIGHTENER) Kristina Billings MD - 08/19/2021 8:00 AM STACKER STRAIGHTENER Kristina Tidwell MD ? 08/19/2021 ??8:00 AM Peripheral Block Patient location during procedure: pre-op holding Reason for block: post-op pain management per surgeon request Ultrasound image in chart or stored: yes Block type: catheter continuous infusion Laterality: right Block type: brachial plexus - interscalene Procedure prep: Preprocedure checklist: patient identified, procedure contraindications assessed, site marked, procedure consent, surgical consent, IV checked, risks, benefits and alternatives discussed, monitors and equipment checked and timeout performed Patient position: sitting and head of bed elevated Procedure performed while patient: sedate with meaningful contact Monitoring: oximetry Supplemental O2: nasal cannula Prep solution: chlorhexidine/alcohol PPE: provider hat/mask, sterile gloves, sterile drape and sterile probe cover and gel Skin infiltrated with lidocaine 1%: yes Peripheral nerve block: Technique: ultrasound guided Needle type: insulated, short-bevel and echogenic Needle gauge: 21 G Needle length: 80 mm Injection assessment: injection made incrementally with constant monitoring, local visualized surrounding nerve on ultrasound, negative aspiration for heme, no paresthesias noted, normal resistance to injection and see flowsheet for medication details Catheter: Catheter type: 20g non-stimulating catheter Catheter over needle length: 51 Catheter placement details: catheter position confirmed by ultrasound, no aspiration of heme, negative test dose, steri-strips, dermal adhesive and occlusive dressing applied (Mastisol [place]) Assessment: Block success: full evaluation pending Events: patient tolerated procedure well with no complications Kristina Tidwell MD ANESTHESIA ORDERABLES Fi nal Result documented in this encounter Visit Diagnoses Not on filedocumented in this encounter Administered Medications Inactive Administered Medications - up to 3 most recent administrations Medication Order MAR Action Action Date Dose Rate Site bupivacaine (MARCAINE) 0.5 % (5 mg/mL) preservative free injection perineural, As needed, Starting on Tue08/19/21 at 0758, Anesthesia Intra-op Given 08/19/2021 7:58 AM STACKER STRAIGHTENER 30 mL ceFAZolin (ANCEF) 1 gram/10 mL in sterile water (premix) 2,000 mg 2,000 mg, intravenous, at 400 mL/hr, Administer over 3 Minutes, Once, On Tue08/19/21 at 0630, For 1 dose, Pre-Op, Administer within 60 minutes of incision., Indications: Prophylaxis, SurgicalIndications:Prophylaxis, Surgical Given 08/19/2021 8:09 AM STACKER STRAIGHTENER 2,000 mg ePHEDrine injection intravenous, Administer over 5 Minutes, As needed, Starting on Tue08/19/21 at 0848, Anesthesia Intra-op Given 08/19/2021 9:18 AM STACKER STRAIGHTENER 10 mg Given 08/19/2021 8:48 AM STACKER STRAIGHTENER 10 mg Given 08/19/2021 8:31 AM STACKER STRAIGHTENER 10 mg fentaNYL (SUBLIMAZE) preservative free injection intravenous, As needed, Starting on Tue08/19/21 at 0750, Anesthesia Intra-op Given 08/19/2021 8:20 AM STACKER STRAIGHTENER 100 mc g Given 08/19/2021 7:50 AM STACKER STRAIGHTENER 100 mcg glycopyrrolate (ROBINUL) injection intravenous, Administer over 1 Minutes, As needed, Starting on Tue08/19/21 at 0938, Anesthesia Intra-op Given 08/19/2021 9:38 AM STACKER STRAIGHTENER 0.4 mg Lactated Ringer's (LR) infusion 30 mL/hr, intravenous, Continuous, Starting on Tue08/19/21 at 0630, For 4 hours, Pre-Op, Use a 500 ml bag for End Stage Renal Disease Patients. Discontinue if fluid still running once patient arrives to floor. New Bag 08/19/2021 8:46 AM STACKER STRAIGHTENER Rate/Dose Verify 08/19/2021 8:09 AM STACKER STRAIGHTENER 30 mL/h r New Bag 08/19/2021 6:27 AM STACKER STRAIGHTENER 30 mL/hr 30 mL/hr lidocaine PF (XYLOCAINE) 10 mg/mL (1 %) preservative free injection infiltration, As needed, Starting on Tue08/19/21 at 0758, Anesthesia Intra-op Given 08/19/2021 7:58 AM STACKER STRAIGHTENER 2 mL lidocaine PF (XYLOCAINE) 10 mg/mL (1 %) preservative free injection intravenous, As needed, Starting on Tue08/19/21 at 0820, Anesthesia Intra-op Given 08/19/2021 8:20 AM STACKER STRAIGHTENER 50 mg midazolam (VERSED) 1 mg/mL injection intravenous, As needed, Starting on Tue08/19/21 at 0750, Anesthesia Intra-op Given 08/19/2021 8:20 AM STACKER STRAIGHTENER 2 mg Given 08/19/2021 7:50 AM STACKER STRAIGHTENER 2 mg neostigmine injection intravenous, Administer over 3 Minutes, As needed, Starting on Tue08/19/21 at 0938, Anesthesia Intra-op Given 08/19/2021 9:38 AM STACKER STRAIGHTENER 3 mg ondansetron (ZOFRAN) injection intravenous, Administer over 2 Minutes, As needed, Starting on Tue08/19/21 at 0809, Anesthesia Intra-op Given 08/19/2021 9:38 AM STACKER STRAIGHTENER 4 mg Given 08/19/2021 8:09 AM STACKER STRAIGHTENER 4 mg propofoL (DIPRIVAN) 10 mg/mL IV intravenous, As needed, Starting on Tue08/19/21 at 0820, Anesthesia Intra-op Given 08/19/2021 8:20 AM STACKER STRAIGHTENER 100 mg rocuronium (ZEMURON) injection intravenous, As needed, Starting on Tue08/19/21 at 0820, Anesthesia Intra-op Given 08/19/2021 8:20 AM STACKER STRAIGHTENER 30 mg documented in this encounter Care Teams Director Biologics Relationship Specialty Start Date End Date Cassandra Mathis DO PCP - General Family Medicine 02/10/21 documented as of this encounter
--- OUTSIDE RECORDS SUMMARY | 2024-10-16 02:24 | XMS_ITS | Encounter Summary ---
Author Organization [facility] Address [address] [place] [address] Care Team Providers Care Head Girls Golf Coach Name Role Phone Cassandra Mathis DO Primary Care Provider [phone]- [phone] Encounter Details Date Type Department Care Team (Late st Contact Info) Description 08/14/2021 Orders Only [facility] Testing Site - [facility]. Building [facility] [address] [place] [address] Mina Turner MD [facility] [place], [place] [id number] Pre-operative laboratory examination (Primary Dx) Social History Tobacco Use Types Packs/Day Years Used Date Smoking Tobacco: Some Days Pipe Smokeless Tobacco: Never Comments:daily pipe smoker AUDIT-C Answer Date Recorded Q1: How often do you have a drink containing alcohol? 4 or more times a week 08/05/2021 Q2: How many drinks containi ng alcohol do you have on a typical day when you are drinking? 3 or 4 Q3: How often do you have si x or more drinks on one occasion? Never 08/05/2021 Sex and Gender Information Value Date Recorded Sex Assigned at Not on file Legal Sex Male 4:29 PM CDT Gender Identity Not on file Sexual Orientation Not on file documented as of this encounter Progress Notes * Amy Rojo - 08/14/2021 11:49 AM CST Priority: Routine Status: ?? Class: Internal Referral Ordering User: Ana Rosa Forbes RN Auth Provider: MINA TURNER Provider: [facility] CPAP NURSE Diagnosis: ?? Department: [facility] Cpap Sched Instruct: ?? Comment: ?? Order Specific Questions Question Answer Comment Testing types: Pre-procedure ?? Date of Px/chemo/treatment/placement/transfer 08/19/2021 ?? Testing site patient will be sent to: [place], [place] ?? Date testing requested: 08/15/2021 ?? Testing: COVID-19 RNA ?? Is this the first COVID-19 test for this patient? No ?? Does the patient currently work in a healthcare facility with direct patient contact? No ?? Is the patient a resident of a congregate care or living setting? No ?? Is the patient ? No ?? Please select the performing region: [facility] AGE CHECKER documented in this encounter Plan of Treatment Not on file documented as of this encounter Procedures Procedure Name Priority Date/Time Associated Diagnosis Comments COVID-19 CORONAVIRUS RNA Routine 08/15/2021 11:50 AM PACKAGE CHECKER documented in this encounter Results * COVID-19 Coronavirus RNA Nasopharyngeal (08/15/2021 11:50 AM PACKAGE CHECKER) COVID-19 RNA Not Detected [place] Comment: Interpretive Data Synonyms for this test include: PCR and NAAT . ??Testing performed by the [facility]. The 2018-Novel Coronavirus Assay (COVID-19) Real Time RT-PCR assay is for in vitro diagnostic use under FDA emergency use authorization only. A negative RT-PCR result does not preclude infection with COVID-19 and should not be used as the sole basis for treatment or other patient management decisions. ??Additional sample types have been validated according to CLIA regulations. ?? Current Interpretive Data was last revised on November 06, 2020. Testing performed by: [facility], [address] [facility] [place]., [address] First COVID-19 test? Unknown [place] Comment:Testing performed by : [facility], [address] [facility] [place]., [address] Employeed in healthcare? No CERNER CH Comment:Testing performed by : [facility], [address] [place]., [address] status? No CERNER CH Comment:Testing performed by : [facility], [address] [facility], [address] Group care resident? No CERNER CH Comment:Testing performed by : [facility], [address] [facility], [address] Hospitalized? Unknown CERNER CH Comment:Testing performed by : [facility], [address] [facility], [address] Is patient in ICU? Unknown CERNER CH Comment:Testing performed by : [facility], [address] [facility], [address] Symptomatic as defined by CDC? No CERNER CH Comment:Testing performed by : [facility], [address] [facility], [address] Nasopharyngeal 08/15/2021 11 :50 AM PACKAGE CHECKER 08/15/2021 10:00 PM PACKAGE CHECKER Mina Turner MD LAB MICROBIOLOGY - [facility] ORDERABLES Final Result [place] [address] Department [place] [address] documented in this encounter Visit Diagnoses Diagnosis Pre-operative laboratory examination- Primary Pre-procedural laboratory examination documented in this encounter Care Teams Head Girls Golf Coach Relationship Specialty Start Date End Date Cassandra Mathis DO PCP - General Family Medicine 02/10/21 documented as of this encounter
--- OUTSIDE RECORDS SUMMARY | 2024-10-16 02:24 | XMS_ITS | Encounter Summary ---
Author Organization [facility] Address [address] [place] [address] Phone Care Team Providers Care Caddy/Caddie Supervisor Name Role Phone Noemykizzyvalentine Cassandra Hendrix Primary Care Provider [phone]- [phone] Reason for Referral * Diagnostic Imaging (Routine) - Closed Specialty Diagnoses / Procedures Referred By Contac t Referred To Contact Diagnoses Rotator cuff tear arthropathy of right shoulder Procedures XR Shoulder Right 2 or More Views Mina Washington MD [address] [place] [address] Phone: tel: fax: [facility] [address] [place] [address] Referral ID Status Reason Start Date Expiration Date Visits Re quested Visits Authorized [id number] Closed 08/10/2022 09/09/2023 1 1 RAMMING SPECIALIST Reason for Visit * Reason Comments Follow-up Encounter Details Date Type Department Care Team (Late st Contact Info) Description 08/12/2022 9:45 AM PROGRAMMING SPECIALIST Office Visit [facility] Orthopaedic Surgery [address] [place] [address] [place] [address] Mina Washington MD [address] [place] [address] Status post orthopedic surgery, follow-up exam (Primary Dx); Rotator cuff tear arthropathy of right shoulder Social History Tobacco Use Types Packs/Day Years [...] Progress Notes * Mina Washington MD - 08/12/2022 9:45 AM CST Images from the original note were not included. POST-OPERATIVE PATIENT VISIT INTERIM HISTORY Date of Surgery: August 19, 2021 Procedure: Right reverse shoulder arthroplasty Chung Mueller returns today for follow-up 1 year status post above procedure. Overall, he is doing very well. He is pleased with his progress. He unfortunately has gone up two strokes on his golfhandicap, but he is confident that he can get back to where he was. PHYSICAL EXAMINATION Incision well healed. Active elevation is to 165??, external rotation is 30??, internal rotation toT12. 4+/5 external rotation strength. Neurovascular intact throughout. REVIEW OF X-RAYS/STUDIES I ordered and independently interpreted 4 views of the right shoulder today, these show reverse arthroplasty in appropriate positioning. Assessment/Plan IMPRESSION/DIAGNOSIS 1 year status post right reverse shoulder arthroplasty, doing well TREATMENT PLAN Patient is doing very well. He can do any activities as tolerated at this point. We will see him back in one year. All questions were answered today. FOLLOW-UP 1 year with new right shoulder x-rays My total encounter time on 08/12/2022 was 15 minutes which was spent in the activities documented in the note. This includes time spent prior to the visit and after the visit in direct care of the patient. This time does not include time spent in any separately reportable services. Mina Washington MD Rocket Motor Tester of Orthopedic Surgery Shoulder and Elbow Service [facility] Orthopedics [facility] Dr. Mina Washington dictating using Fluency Direct. Assembler Movement variances may occur. RAMMING SPECIALIST documented in this encounter Plan of Treatment Not on file documented as of this encounter Results * XR Shoulder Right 2 or More Views (08/12/2022 9:41 AM PROGRAMMING SPECIALIST) Anatomical Region Laterality Modality Upper Extremities, Shoulder Right Comp uted Radiography 08/12/2022 9:45 AM PROGRAMMING SPECIALIST Impressions 08/12/2022 9:45 AM PROGRAMMING SPECIALIST Reverse gvun-rrd-lxmxdl right total shoulder arthroplasty in unchanged near anatomic position. Electronically signed by: Efrem Natarajan M.D. Narrative 08/12/2022 9:45 AM PROGRAMMING SPECIALIST EXAMINATION: Right shoulder minimum 2 views HISTORY: Right shoulder osteoarthritis FINDINGS: 4 views of the right shoulder were performed with comparison made to 02/11/2022. There is a reverse yuza-orr-bcyrfr right total shoulder arthroplasty in near-anatomic position. There is no periprosthetic lucency or periprosthetic fracture. Acromioclavicular osteoarthritis is unchanged. Procedure Note Efrem Natarajan MD PhD - 08/12/2022 EXAMINATION: Right shoulder minimum 2 views HISTORY: Right shoulder osteoarthritis FINDINGS: 4 views of the right shoulder were performed with comparison made to 02/11/2022. There is a reverse obnk-ffu-irvrpz right total shoulder arthroplasty in near-anatomic position. There is no periprosthetic lucency or periprosthetic fracture. Acromioclavicular osteoarthritis is unchanged. IMPRESSION: Reverse szzl-euv-qwvnza right total shoulder arthroplasty in unchanged near anatomic position. Electronically signed by: Efrem Natarajan M.D. us Mina Washington MD IMG XR PROCEDURES Fin al Result documented in this encounter Visit Diagnoses Diagnosis Status post orthopedic surgery, follow-up exam- Primary Rotator cuff tear arthropathy of right shoulder Rotator cuff tear arthropathy of right shoulder documented in this encounter Care Teams Caddy/Caddie Supervisor Relationship Specialty Start Date End Date Cassandra Mathis DO PCP - General Family Medicine 02/10/21 documented as of this encounter
--- OUTSIDE RECORDS SUMMARY | 2024-10-16 02:24 | XMS_ITS | Encounter Summary ---
Author Organization [facility] Address [address] [place] [address] Phone Care Team Providers Care Assistant Counsel Name Role Phone Noemykizzyvalentine Cassandra Hendrix Primary Care Provider +1- [phone] Reason for Referral * Diagnostic Imaging (Routine) - Closed Specialty Diagnoses / Procedures Referred By Contac t Referred To Contact Diagnoses Right shoulder pain, unspecified chronicity Procedures XR Shoulder Right 2 or More Views Mina Washington MD [address] [place] [address] Phone: tel: fax: [facility] [address] [place] [address] Referral ID Status Reason Start Date Expiration Date Visits Re quested Visits Authorized [id number] Closed 02/13/2021 03/15/2022 1 1 Reason for Visit * Reason Comments New Patient Encounter Details Date Type Department Care Team (Late st Contact Info) Description 02/20/2021 11:45 AM CDT Office Visit [facility] Orthopaedic Surgery [address] [facility] [address] [address] [place] [address] [place] [id number] Mina Washington MD [address] [address] Rotator cuff tear arthropathy of right shoulder (Primary Dx) Social History Tobacco Use Types Packs/Day Years Used Date Smoking Tobacco: Never Assessed Sex and Gender Information Value Date Recorded Sex Assigned at Not on file Legal Sex Male 4:29 PM CDT Gender Identity Not on file Sexual Orientation Not on file documented as of this encounter Progress Notes * Mina Washington MD - 02/20/2021 11:45 AM CDT Images from the original note were not included. NEW PATIENT VISIT Subjective CHIEF COMPLAINT Right shoulder pain HISTORY OF PRESENT ILLNESS Chung Mueller is a 70 year old left-hand dominant man who presents for evaluation of several yearhistory of right shoulder pain. He denies any traumatic injury. He states his shoulder hurts over the lateral side. Hurts with overhead activities as well as reaching away from his body. He has had several injections in the past, and these have provided him with up to 4 months relief. Most recent injections have only provided him with a couple of weeks of relief. He did get an MRI, which showed evidence of a rotator cuff tear, and is here for discussion of further surgery. PAST MEDICAL HISTORY He has no past medical history on file. PAST SURGICAL HISTORY He has no past surgical history on file. INITIAL REVIEW OF MEDICATIONS He has a current medication list which includes the following prescription(s): allopurinol, atorvastatin, diclofenac dr, diclofenac sodium, and fenofibrate. DRUG ALLERGIES He has No Known Allergies. SOCIAL HISTORY He FAMILY HISTORY His family history is not on file. REVIEW OF SYSTEMS Review of Systems 12 Point Review of Systems was conducted and is negative except for what is noted in the HPI Objective PHYSICAL EXAMINATION Patient is alert and oriented x 3 and in no acute distress. Mood and affect are within normal limits. Respirations non-labored. Hearing intact to spoken word. No pain with palpation of the cervical spine. Normal cervical spine motion. Spurling's test is negative. Examination right shoulder shows active and passive elevation to approximately 160?? with pain withmid arc flexion. External rotation is to 45??, internal rotation is to lower lumbar spine. He has 3/5 strength with thumbs down abduction and external rotation at the side. No lag signs. Negative horn blower's. Negative abdominal compression test. Neurovascular intact throughout. REVIEW OF X-RAYS/STUDIES I ordered and independently interpreted Four views of the right shoulder today, these show rotator cuff tear arthropathy with stage III changes. Assessment/Plan IMPRESSION/DIAGNOSIS Right rotator cuff tear arthropathy TREATMENT PLAN Reviewed the findings the patient today. Overall, he has evidence of right rotator cuff tear arthropathy. He has had conservative management the past including several cortisone injections. These have provided him with diminishing relief. We discussed the findings as well as risks and options. At this point, I do think the patient would be reasonable candidate for reverse shoulder arthroplasty. We discussed the risks, benefits, complications alternatives. We also discussed the expected rehab protocol. Patient is hoping to have surgery done sometime this fall. We will make appropriate arrangements for him. He expressed understanding of this. All questions answered today. FOLLOW-UP Postoperatively My total encounter time on 02/20/2021 was 45 minutes which was spent in the activities documented inthe note. This includes time spent prior to the visit and after the visit in direct care of the patient. This time does not include time spent in any separately reportable services. Mina Washington MD Lead Advisor of Orthopedic Surgery Shoulder and Elbow Service [facility] Orthopedics [facility] [address] Mina Washington dictating using Fluency Direct. Conveyor Console Operator variances may occur. documented in this encounter Plan of Treatment Not on file documented as of this encounter Results * XR Shoulder Right 2 or More Views (02/20/2021 10:56 AM CDT) Anatomical Region Laterality Modality Upper Extremities, Shoulder Right Comp uted Radiography 02/20/2021 11:0 4 AM CDT Impressions 02/20/2021 11:04 AM CDT 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 Electronically signed by: Pegn Aguillon M.D. Narrative 02/20/2021 11:04 AM CDT XR SHOULDER RIGHT 2 OR MORE VIEWS HISTORY: ??Right shoulder pain. FINDINGS: ??4 views of the right shoulder are obtained and interpreted without comparison. There is no fracture. Moderate acromioclavicular and glenohumeral osteoarthritis is present. There is superior translation of the humeral head likely indicating rotator cuff tear. A crescentic calcification is seen in the axilla. Procedure Note Peng Aguillon MD - 02/20/2021 XR SHOULDER RIGHT 2 OR MORE VIEWS HISTORY: Right shoulder pain. FINDINGS: 4 views of the right shoulder are obtained and interpreted without comparison. There is no fracture. Moderate acromioclavicular and glenohumeral osteoarthritis is present. There is superior translation of the humeral head likely indicating rotator cuff tear. A crescentic calcification is seen in the axilla. IMPRESSION: 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 Electronically signed by: Peng Aguillon M.D. Mina Washington MD IMG XR PROCEDURES Fin al Result documented in this encounter Visit Diagnoses Diagnosis Rotator cuff tear arthropathy of right shoulder- Primary Right shoulder pain, unspecified chronicity documented in this encounter Historical Medications * This list may reflect changes made after this encounter. fenofibrate (TRICOR) 54 mg tablet Take 54 mg by mouth daily 12/16/2020 atorvastatin (LIPITOR) 10 mg tablet Take 10 mg by mouth daily 01/01/2021 allopurinoL (ZYLOPRIM) 300 mg tablet Take 300 mg by mouth every morning 01/01/[address] (VOLTAREN) 75 mg EC tablet Take 75 mg by mouth as needed 01/02/2021 1 diclofenac sodium (VOLTAREN) 1 % gel Apply topically as needed 01/10/2021 1 added in this encounter Care Teams Assistant Counsel Relationship Specialty Start Date End Date Cassandra Mathis DO PCP - General Family Medicine 02/10/21 documented as of this encounter
--- OUTSIDE RECORDS SUMMARY | 2024-10-16 02:24 | XMS_ITS | Referral Summary ---
Author Organization [facility] Address [address] [place] [address] Care Team Providers Care Admissions Director Name Role Phone Cassandra Mathis DO Primary Care Provider +1- [phone] Allergies No known active allergies Medications allopurinoL (ZYLOPRIM) 300 mg tablet Take 300 mg by mouth every morning 1 Active atorvastatin (LIPITOR) 10 mg tablet Take 10 mg by mouth daily 1 Active fenofibrate (TRICOR) 54 mg tablet Take 54 mg by mouth daily 1 Active vitamin B complex capsule Take 1 capsule by mouth every morning Active cyanocobalamin (Vitamin B-12) 1,000 mcg tabletIndication s:Prevention of Vitamin B12 Deficiency Take 1,000 mcg by mouth every morning Active cholecalciferol (VITAMIN D-3) 1,000 unit Take 1,000 Units by mouth every morning Active doxycycline monohydrate (MONODOX) 100 mg capsule Take 100 mg by mouth as needed Active pregabalin (LYRICA) 150 mg capsule Take 150 mg by mouth 3 (three) times a day Active hydrOXYzine (ATARAX) 25 mg tablet Take 25 mg by mouth as needed for itching Active sildenafiL (VIAGRA) 100 mg tablet Take 100 mg by mouth as needed for erectile dysfunction Active oxyCODONE (ROXICODONE) 5 mg immediate release tabletIndication s:Pain Take 1 tablet (5 mg total) by mouth every 4 (four) hours as needed for pain 40 tablet 1 Active diclofenac sodium (VOLTAREN) 1 % gel Apply topically as needed DO NOT APPLY TO RIGHT SHOULDER SURGICAL INCISION. 1 Active aspirin 81 mg enteric coated tabletIndication s:Deep Vein Thrombosis Prevention Take 1 tablet (81 mg total) by mouth 2 (two) times a day 28 tablet 1 Active acetaminophen 500 mg capsuleIndicatio ns:Pain Take 2 capsules (1,000 mg total) by mouth every 6 (six) hours 100 tablet 1 1 Active docusate sodium (COLACE) 100 mg capsuleIndicatio ns:constipation Take 1 capsule (100 mg total) by mouth 2 (two) times a day May increase to 4 tablets twice daily if needed. HOLD medication for diarrhea. 30 capsule 1 1 Active cephalexin (KEFLEX) 500 mg capsuleIndicatio ns:Rotator cuff tear arthropathy of right shoulder Take 500 mg by mouth every 12 (twelve) hours 1 Active Active Problems Problem Noted Date Diagnosed Date HLD (hyperlipidemia) 08/13/2021 Rotator cuff tear arthropathy of right shoulder 07/21/2021 Overview (07/21/2021): Added automatically from request for surgery [id number] Immunizations Name Administration Dates Next Due [place] SARS-CoV-2 Monovalent Vaccination (12+ Yrs) PURPLE 07/17/2021,11/22/2020,11/01/2020 Social History Tobacco Use Types Packs/Day Years [...] on file Sexual Orientation Not on file Last Filed Vital Signs Vital Sign Reading Time Taken Comments Blood Pressure 108/58 08/20/2021 8:35 AM MOULDER OPERATOR Pulse 74 08/20/2021 8:35 AM MOULDER OPERATOR Temperature 36.7 ??C (98 ??F) 08/20/2021 8:35 AM MOULDER OPERATOR Respiratory Rate 18 08/20/2021 8:35 AM MOULDER OPERATOR Oxygen Saturation 98% 08/20/2021 8:35 AM MOULDER OPERATOR Inhaled Oxygen Concentration - - Weight 76.9 kg (169 lb 8 oz) 08/19/2021 5:55 AM MOULDER OPERATOR Height 177.8 cm (5' 10 ) 08/19/2021 5:55 AM MOULDER OPERATOR Body Mass Index 24.32 08/19/2021 5:55 AM MOULDER OPERATOR Plan of Treatment Not on file Medical Devices Implanted Type Area Silversmith Apprentice Device Identifier Shelf Expiration Date Model / Serial / Lot [employer] [id number] Tornier Aequalis Perform 15mm Press Fit Long Post Shoulder - [id number] - [id number] Implanted:Qty : 1 on 08/19/2021 by Mina Washington MD at [facility] Other - see comments Right: Shoulder [employer] [id number] 04/22/2026 [id number] / [id number] / [employer] [id number] Tornier Aequalis Perform 25mm Lateralize Augment Reverse Shoulder - [id number] - [id number] Implanted:Qty : 1 on 08/19/2021 by Mina Washington MD at [facility] Other - see comments Right: Shoulder [employer] [id number] 06/15/2026 [id number] / [id number] / [employer] [id number] Tornier Aequalis Perform 39mm Reverse Shoulder Standard Sphere - [id number] - [id number] Implanted:Qty : 1 on 08/19/2021 by Mina Washington MD at [facility] Other - see comments Right: Shoulder [employer] [id number] 06/22/2026 [id number] / [id number] / [employer] [id number] Insert Perform 10 Deg [id number] - [id number] - [id number] Implanted:Qty : 1 on 08/19/2021 by Mina Washington MD at [facility] Other - see comments Right: Shoulder [employer] [id number] 01/14/2026 [id number] / [id number] / [employer] [id number] Stem Perform Sz 3 Humeral - Sna - [id number] Implanted:Qty : 1 on 08/19/2021 by Mina Washington MD at [facility] Other - see comments Right: Shoulder [employer] [id number] / [id number] / [employer] [id number] Aequalis Perform Reversed 5mm 34mm Peripheral Glenoid Screw - [id number] Implanted:Qty : 2 on 08/19/2021 by Mina Washington MD at [facility] Screw Right: Shoulder [employer] [id number] / / Insurance [facility] MDCR HMO REF [facility] O[facility] MEDICARE [place]ARE [place] [facility] ADVANTRA Advance Directives For more information, please contact: [phone] * Full Code (Latest Code Status on File) Date Activated Date Inactivated Comments 08/19/2021 11:07 AM 08/20/2021 3:42 PM Care Teams Admissions Director Relationship Specialty Start Date End Date Cassandra Mathis DO PCP - General Family Medicine 02/10/21
--- OUTSIDE RECORDS SUMMARY | 2024-10-16 02:24 | XMS_ITS | Clinical Summary ---
Author Organization [facility] Address [address] [place] [address] Care Team Providers Care Personnel Counselor Name Role Phone Cassandra Mathis DO Primary Care Provider +1- [phone] Allergies No known active allergies Medications allopurinoL [...] (07/21/2021): Added automatically from request for surgery [id number] Immunizations Name Administration Dates Next Due [employer] SARS-CoV-2 Monovalent Vaccination (12+ Yrs) PURPLE 07/17/2021,11/22/2020,11/01/2020 Surgical History Surgery Date Site/Laterality Comments APPENDECTOMY 10/21/2009 SKIN CANCER EXCISION 05/12/1999 Forehead SKIN CANCER EXCISION 03/04/2003 Chin SKIN CANCER EXCISION 04/03/2008 Chest Medical History Medical History Date Comments Pneumonia Hyperlipidemia Basal cell carcinoma (BCC) Gout HLD (hyperlipidemia) 08/13/2021 Family History Medical History Relation Name Comments Anesthesia problems Neg Hx Social History Tobacco Use Types Packs/Day Years [...] on file Sexual Orientation Not on file Obstetrics History Last Filed Vital Signs Vital Sign Reading Time Taken Comments Blood Pressure 108/58 08/20/2021 8:35 AM LATHE MACHINIST Pulse 74 08/20/2021 8:35 AM LATHE MACHINIST Temperature 36.7 ??C (98 ??F) 08/20/2021 8:35 AM LATHE MACHINIST Respiratory Rate 18 08/20/2021 8:35 AM LATHE MACHINIST Oxygen Saturation 98% 08/20/2021 8:35 AM LATHE MACHINIST Inhaled Oxygen Concentration - - Weight 76.9 kg (169 lb 8 oz) 08/19/2021 5:55 AM LATHE MACHINIST Height 177.8 cm (5' 10 ) 08/19/2021 5:55 AM LATHE MACHINIST Body Mass Index 24.32 08/19/2021 5:55 AM LATHE MACHINIST Plan of Treatment Health Maintenance Due Date Last Done Comments Hepatitis C Screening 1950 Hepatitis B Screening 1966 Zoster Vaccine (2 of 3) 01/05/2012 11/10/2011 Abdominal Aortic Aneurysm (A AA) Screen 2013 Well Visit 65+ 2013 Depression Screening 07/21/2022 07/21/2021, 07/21/20 21 Fall Risk Assessment 08/20/2022 08/20/2021 Covid-19 Vaccine (5 - 2023-2 5 season) 2024 02/05/2022, 07/17/2021, 11/22/2020, Additional history exists Influenza Vaccine (#1) 2024 , 06/03/2020, 06/03/2020, Additional history exists DTaP/Tdap/Td Vaccine (4 - Td or Tdap) 05/04/2028 05/04/2018, 05/04/2018, 07/08/2008 Pneumococcal vaccine 65+ Completed 03/03/2016, 08/03 Medical Devices Implanted Type Area Sprayer Hand Device Identifier Shelf Expiration Date Model / Serial / Lot Sample6 Inc [id number] Tornier Aequalis Perform 15mm Press Fit Long Post Shoulder - [id number] - [id number] Implanted:Qty : 1 on 08/19/2021 by Mina Washington MD at [facility] Other - see comments Right: Shoulder [employer] [id number] 04/22/2026 [id number] / [id number] / [employer] [id number] Tornier Aequalis Perform 25mm Lateralize Augment Reverse Shoulder - [id number] - [id number] Implanted:Qty : 1 on 08/19/2021 by Mina Washington MD at [facility] Other - see comments Right: Shoulder [employer] [id number] 06/15/2026 [id number] / [id number] 2 / [employer] [id number] Tornier Aequalis Perform 39mm Reverse Shoulder Standard Sphere - [id number] - [id number] Implanted:Qty : 1 on 08/19/2021 by Mina Washington MD at [facility] Other - see comments Right: Shoulder [employer] [id number] 06/22/2026 [id number] / [id number] / [employer] [id number] Insert Perform 10 Deg [id number] - [id number] - [id number] Implanted:Qty : 1 on 08/19/2021 by Mina Washington MD at [facility] Other - see comments Right: Shoulder [employer] [id number] 01/14/2026 [id number] / [id number] / [employer] [id number] Stem Perform Sz 3 Humeral - Sna - [id number] Implanted:Qty : 1 on 08/19/2021 by Mina Washington MD at [facility] Other - see comments Right: Shoulder [employer] [id number] / NA / [employer] [id number] Aequalis Perform Reversed 5mm 34mm Peripheral Glenoid Screw - [id number] Implanted:Qty : 2 on 08/19/2021 by Mina Washington MD at [facility] Screw Right: Shoulder [employer] [id number] / / Insurance [facility] MDCR HMO REF [facility] MED[facility] Address: [address] [address] [place] [address] [facility] MEDIC[facility] OOS Member Subscriber Plan / Payer (Ef fective 2021-) Name:Chung Mueller Relation to Subscriber:Self Name:Chung Mueller Payer ID:[id number] (NAIC) Type:MEDICARE RISK OTHER Address: [address] [place]ARE [place] [facility] [place] [facility] Advance Directives For more information, please contact: [phone] * Full Code (Latest Code Status on File) Date Activated Date Inactivated Comments 08/19/2021 11:07 AM 08/20/2021 3:42 PM Care Teams Personnel Counselor Relationship Specialty Start Date End Date Cassandra Mathis DO PCP - General Family Medicine 02/10/21
--- OUTSIDE RECORDS SUMMARY | 2024-10-16 02:24 | XMS_ITS | Encounter Summary ---
Author Organization [facility] Healthcare Address [address] [place] [address] Care Team Providers Care Leather Goods Ii Assembler Name Role Phone NoemyCassandra reynolds Ruma Primary Care Provider +1- [phone] Reason for Referral * Diagnostic Imaging (Routine) - Closed Specialty Diagnoses / Procedures Referred By Contac t Referred To Contact Diagnoses Rotator cuff tear arthropathy of right shoulder Procedures XR Shoulder Right 2 or More Views Mina Washington MD [address] [place] [address] Phone: tel: fax: [address] [address] Referral ID Status Reason Start Date Expiration Date Visits Re quested Visits Authorized [id number] Closed 08/10/2022 09/09/2023 1 1 DING MECHANIC Reason for Visit * Diagnostic Imaging (Routine) - Closed Specialty Diagnoses / Procedures Referred By Contac t Referred To Contact Diagnoses Rotator cuff tear arthropathy of right shoulder Procedures XR Shoulder Right 2 or More Views Mina Washington MD [address] [place] [address] Phone: tel: fax: [address] [phone] Referral ID Status Reason Start Date Expiration Date Visits Re quested Visits Authorized [id number] Closed 08/10/2022 09/09/2023 1 1 Encounter Details Date Type Department Care Team (Latest Contact Info) Description 08/12/2022 9:29 AM BUILDING MECHANIC - 08/12/2022 11:59 PM BUILDING MECHANIC Hospital Encounter [facility] [address] [place] [address] Rotator cuff tear arthropathy of right shoulder Discharge Disposition: Discharge to home or self [...] on file documented as of this encounter Medications at Time of Discharge [...] Take 10 mg by mouth daily 01/01/2021 cephalexin (KEFLEX) 500 mg capsuleIndication s:Rotator cuff tear arthropathy of right shoulder Take 500 mg by mouth every 12 (twelve) hours 09/14/2021 cholecalciferol (VITAMIN D-3) 1,000 unit Take 1,000 [...] every morning documented as of this encounter Discharge Disposition Disposition Code Departure Means Destination Discharge to home or self care documented in this encounter Plan of Treatment Not on file documented as of this encounter Procedures Procedure Name Priority Date/Time Associated Diagnosis Comments XR SHOULDER RIGHT 2 OR MORE VIEWS Schedule Routine, Read Routine (OP Routine) 08/12/2022 9:41 AM BUILDING MECHANIC Rotator cuff tear arthropathy of right shoulder documented in this encounter Results * XR Shoulder Right 2 or More Views (08/12/2022 9:41 AM BUILDING MECHANIC) Anatomical Region Laterality Modality Upper Extremities, Shoulder Right Comp uted Radiography 08/12/2022 9:45 AM BUILDING MECHANIC Impressions 08/12/2022 9:45 AM BUILDING MECHANIC Reverse ernf-yvg-peaghs right total shoulder arthroplasty in unchanged near anatomic position. Electronically signed by: Efrem Natarajan M.D. Narrative 08/12/2022 9:45 AM BUILDING MECHANIC EXAMINATION: Right shoulder minimum 2 views HISTORY: Right shoulder osteoarthritis FINDINGS: 4 views of the right shoulder were performed with comparison made to 02/11/2022. There is a reverse uczi-nqw-cykbvf right total shoulder arthroplasty in near-anatomic position. There is no periprosthetic lucency or periprosthetic fracture. Acromioclavicular osteoarthritis is unchanged. Procedure Note Efrem Natarajan MD PhD - 08/12/2022 EXAMINATION: Right shoulder minimum 2 views HISTORY: Right shoulder osteoarthritis FINDINGS: 4 views of the right shoulder were performed with comparison made to 02/11/2022. There is a reverse xntz-wmq-vwlfnq right total shoulder arthroplasty in near-anatomic position. There is no periprosthetic lucency or periprosthetic fracture. Acromioclavicular osteoarthritis is unchanged. IMPRESSION: Reverse xcnb-vpu-enomfc right total shoulder arthroplasty in unchanged near anatomic position. Electronically signed by: Efrem Natarajan M.D. Mina Washington MD IMG XR PROCEDURES Fin al Result documented in this encounter Visit Diagnoses Diagnosis Rotator cuff tear arthropathy of right shoulder documented in this encounter Care Teams Leather Goods Ii Assembler Relationship Specialty Start Date End Date Cassandra Mathis DO PCP - General Family Medicine 02/10/21 documented as of this encounter
--- OUTSIDE RECORDS SUMMARY | 2024-10-16 02:24 | XMS_ITS | Encounter Summary ---
Author Organization [facility] Healthcare Address [address] [place] [address] Care Team Providers Care Brief Writer Name Role Phone Cassandra Mathis DO Primary Care Provider +1- [phone] Encounter Details Date Type Department Care Team (Latest Contact Info) Description 08/19/2021 9:44 AM WEB SIZER - 08/19/2021 11:59 PM WEB SIZER Hospital Encounter [facility] [address] [place] [address] Discharge Disposition: Discharge to home or self [...] Take 1 capsule by mouth every morning diclofenac DR (VOLTAREN) 75 mg EC tablet Take 75 mg by mouth as needed 01/02/2021 1 documented as of this encounter Discharge Disposition Disposition Code Departure Means Destination Discharge to home or self care documented in this encounter Plan of Treatment Not on file documented as of this encounter Procedures Procedure Name Priority Date/Time Associated Diagnosis Comments XR SHOULDER RIGHT 2 OR MORE VIEWS IP Routine 08/19/2021 10:19 AM WEB SIZER documented in this encounter Results * XR Shoulder Right 2+ View (08/19/2021 10:19 AM WEB SIZER) Anatomical Region Laterality Modality Upper Extremities, Shoulder Right Comp uted Radiography 08/19/2021 10:2 3 AM WEB SIZER Impressions 08/19/2021 10:23 AM WEB SIZER 1. New reverse right total shoulder arthroplasty for rotator cuff tear arthropathy. Electronically signed by: Anthony Gallagher M.D. Narrative 08/19/2021 10:23 AM WEB SIZER EXAMINATION: XR SHOULDER RIGHT 2 OR MORE [...] on filedocumented in this encounter Care Teams Brief Writer Relationship Specialty Start Date End Date Cassandra Mathis DO PCP - General Family Medicine 02/10/21 documented as of this encounter
--- OUTSIDE RECORDS SUMMARY | 2024-10-16 02:24 | XMS_ITS | Encounter Summary ---
Author Organization [facility] Address [address] [place] [address] Phone Care Team Providers Care Chief Design Engineer Name Role Phone Cassandra Mathis DO Primary Care Provider +1- [phone] Reason for Referral * Diagnostic Imaging (Routine) - Closed Specialty Diagnoses / Procedures Referred By Contac t Referred To Contact Diagnoses Status post orthopedic surgery, follow-up exam Procedures XR Shoulder Right 2 or More Views Mina Washington MD [address] [facility] [place] [address] Phone: tel: fax: [facility] [address] [place] [address] Referral ID Status Reason Start Date Expiration Date Visits Re quested Visits Authorized [id number] Closed 02/03/2022 03/05/2023 1 1 Reason for Visit * Reason Comments Follow-up * Consultation (Routine) - Closed Specialty Diagnoses / Procedures Referred By Contac t Referred To Contact Orthopedic Surgery Diagnoses Right shoulder pain, unspecified chronicity Cassandra Mathis DO Phone: tel: fax: [facility] (All Locations) Referral ID Status Reason Start Date Expiration Date V isits Requested Visits Authorized [id number] Closed Specialty Services Required 02/11/2022 03/13/2023 1 1 Encounter Details Date Type Department Care Team (Late st Contact Info) Description 02/11/2022 9:45 AM CDT Office Visit [facility] Orthopaedic Surgery [address] [facility] [address] [place] [address] [place] [address] Mina Washington MD [address] [facility] [id number] [place] [address] Status post orthopedic surgery, follow-up exam (Primary [...] Progress Notes * Mina Washington MD - 02/11/2022 9:45 AM CDT Images from the original note were not included. POST-OPERATIVE PATIENT VISIT INTERIM HISTORY Date of Surgery: August 19, 2021 Procedure: Right reverse shoulder arthroplasty Chung Mueller returns today for follow-up 6 months from surgery. Overall, he is doing very well. He is pleased with his progress. PHYSICAL EXAMINATION Incision is healing well. Active elevation is to 155??, external rotation is 20??, internal rotation to lower lumbar spine. Neurovascular intact throughout. REVIEW OF X-RAYS/STUDIES I ordered and independently interpreted 4 views of the right shoulder today, these show reverse arthroplasty in appropriate positioning. Assessment/Plan IMPRESSION/DIAGNOSIS Six months status post right reverse shoulder arthroplasty TREATMENT PLAN Patient is doing very well. He will continue increase activities as tolerated. We will see him backin six months. All questions were answered today. FOLLOW-UP Six months with new right shoulder x-rays This note written with assistance of Joseph Hernandez MD Orthopaedic Surgery PGY-4 ATTENDING ADDENDUM The patient was seen today with the resident/fellow. I was present for the history, physical exam, case discussion and plan. I agree with documented, history, physical exam, and Assessment and Plan as dictated in the full clinic note. My total encounter time on 02/11/2022 was 15 minutes which was spent in the activities documented inthe note. This includes time spent prior to the visit and after the visit in direct care of the patient. This time does not include time spent in any separately reportable services. Mina Washington MD Bulking Machine Operator of Orthopedic Surgery Shoulder and Elbow Service [facility] Orthopedics [facility] Dr. Mina Washington dictating using [employer]. Marketing Communications Specialist variances may occur. documented in this encounter Plan of Treatment Not on file documented as of this encounter Results * XR Shoulder Right 2 or More Views (02/11/2022 9:37 AM CDT) Anatomical Region Laterality Modality Upper Extremities, Shoulder Right Comp uted Radiography 02/11/2022 9:44 AM CDT Impressions 02/11/2022 9:44 AM CDT 1. Right reverse total shoulder arthroplasty is in unchanged near-anatomic position. Electronically signed by: Henry Ball M.D. Narrative 02/11/2022 9:44 AM CDT EXAM: 1. ??XR SHOULDER RIGHT 2 OR MORE VIEWS HISTORY: Right shoulder pain COMPARISON: Radiographs 11/27/2021 FINDINGS: 4 radiographs of the right shoulder submitted for interpretation. Reverse right total shoulder arthroplasty is in unchanged near-anatomic position. No acute fracture identified. Unchanged mild acromioclavicular joint osteoarthritis. Procedure Note Henry Ball MD - 02/11/2022 EXAM: 1. XR SHOULDER RIGHT 2 OR MORE VIEWS HISTORY: Right shoulder pain COMPARISON: Radiographs 11/27/2021 FINDINGS: 4 radiographs of the right shoulder submitted for interpretation. Reverse right total shoulder arthroplasty is in unchanged near-anatomic position. No acute fracture identified. Unchanged mild acromioclavicular joint osteoarthritis. IMPRESSION: 1. Right reverse total shoulder arthroplasty is in unchanged near-anatomic position. Electronically signed by: Henry Ball M.D. Mina Washington MD IMG XR PROCEDURES Fin al Result documented in this encounter Visit Diagnoses Diagnosis Status post orthopedic surgery, follow-up exam- Primary Rotator cuff tear arthropathy of right shoulder Status post orthopedic surgery, follow-up exam documented in this encounter Orders Outpatient Referral Count Last Ordered Date Fir st Ordered Date AMB REFERRAL TO ORTHOPEDIC SURGERY 1 2021 documented in this encounter Care Teams Chief Design Engineer Relationship Specialty Start Date End Date Cassandra Mathis DO PCP - General Family Medicine 02/10/21 documented as of this encounter
--- OUTSIDE RECORDS SUMMARY | 2024-10-16 02:24 | XMS_ITS | Encounter Summary ---
Author Organization [facility] Address [address] [place] [address] Phone Care Team Providers Care Proteomics Scientist Name Role Phone Cassandra Mathis DO Primary Care Provider +1- [phone] Reason for Visit * Reason Comments Follow-up Encounter Details Date Type Department Care Team (Late st Contact Info) Description 08/11/2023 8:45 AM SKILLED NURSING FACILITIES PROFESSIONAL Office Visit [facility] Orthopaedic Surgery [facility] 12th [place] [address] [place] [address] Mina Washington MD [address] [facility] [address] [place] [address] Status post orthopedic surgery, follow-up exam (Primary [...] Progress Notes * Mina Washington MD - 08/11/2023 8:45 AM CST Images from the original note were not included. POST-OPERATIVE PATIENT VISIT INTERIM HISTORY Date of Surgery: 08/19/2021 Procedure: Right reverse shoulder arthroplasty - Right Chung Mueller returns 2 years from surgery. He continues to do great. Reports minimal pain he is very pleased with his progress. PHYSICAL EXAMINATION Elevation is to 150??, external rotation is to 40??, internal rotation is to posterolateral buttock. Neurovascular intact throughout. REVIEW OF X-RAYS/STUDIES I ordered and independently interpreted four views of the right shoulder, these show stable reverseshoulder arthroplasty Assessment/Plan IMPRESSION/DIAGNOSIS Two status post right reverse shoulder arthroplasty, doing well TREATMENT PLAN Patient is doing great. He reports almost 90% of a normal shoulder. I will see him back in 3 years for 5 year follow-up, sooner if needed. We reviewed precautions and the patient voiced understanding. All questions were answered today. FOLLOW-UP Three years with new right shoulder x-rays My total encounter time on 08/11/2023 was 15 minutes which was spent in the activities documented inthe note. This includes time spent prior to the visit and after the visit in direct care of the patient. This time does not include time spent in any separately reportable services. Mina Washington MD Correctional Probation Officer of Orthopedic Surgery Shoulder and Elbow Service [facility] Orthopedics [facility] Dr. Mina Washington dictating using [employer] Direct. Restaurant Managing Partner variances may occur. LED NURSING FACILITIES PROFESSIONAL documented in this encounter Plan of Treatment Not on file documented as of this encounter Results * XR Shoulder Right 2 or More Views (08/11/2023 9:07 AM SKILLED NURSING FACILITIES PROFESSIONAL) Anatomical Region Laterality Modality Upper Extremities, Shoulder Right Comp uted Radiography 08/11/2023 5:06 PM SKILLED NURSING FACILITIES PROFESSIONAL Impressions 08/11/2023 6:07 PM SKILLED NURSING FACILITIES PROFESSIONAL 1. ??Reverse eyxo-ntv-gbpixy right shoulder arthroplasty with near-anatomic alignment and no periprosthetic fracture or other evidence of hardware failure. 2. Unchanged moderate acromioclavicular osteoarthritis Dictated by: Jazmyn Sanchez MD The radiology attending physician has personally reviewed this study, and had reviewed and/or edited this written report and agrees with it. Electronically signed by: Yulisa Yip MD Narrative 08/11/2023 6:07 PM SKILLED NURSING FACILITIES PROFESSIONAL EXAMINATION: XR SHOULDER RIGHT 2 OR MORE VIEWS HISTORY: right shoulder pain status post right shoulder arthroplasty COMPARISON: X-ray on 08/12/2022. FINDINGS: 4 views of the right shoulder submitted with comparison made to 08/12/2022. ??Reverse uxde-jos-naicao right shoulder arthroplasty with near-anatomic alignment. ??There is no periprosthetic fracture or other evidence of hardware failure. ??Unchanged moderate acromioclavicular osteoarthritis. ?? Procedure Note Nupur Yip MD - 08/11/2023 EXAMINATION: XR SHOULDER RIGHT 2 OR MORE VIEWS HISTORY: right shoulder pain status post right shoulder arthroplasty COMPARISON: X-ray on 08/12/2022. FINDINGS: 4 views of the right shoulder submitted with comparison made to 08/12/2022. Reverse xrpb-vmc-rdtwpz right shoulder arthroplasty with near-anatomic alignment. There is no periprosthetic fracture or other evidence of hardware failure. Unchanged moderate acromioclavicular osteoarthritis. IMPRESSION: 1. Reverse qzyd-ftf-vgzizs right shoulder arthroplasty with near-anatomic alignment and no periprosthetic fracture or other evidence of hardware failure. 2. Unchanged moderate acromioclavicular osteoarthritis Dictated by: Jazmyn Sanchez MD The radiology attending physician has personally reviewed this study, and had reviewed and/or edited this written report and agrees with it. Electronically signed by: Yulisa Yip MD Mina Washington MD IMG XR PROCEDURES Fin al Result documented in this encounter Visit Diagnoses Diagnosis Status post orthopedic surgery, follow-up exam- Primary Rotator cuff tear arthropathy of right shoulder Status post orthopedic surgery, follow-up exam documented in this encounter Care Teams Proteomics Scientist Relationship Specialty Start Date End Date Cassandra Mathis DO PCP - General Family Medicine 02/10/21 documented as of this encounter
--- OUTSIDE RECORDS SUMMARY | 2024-10-16 02:24 | XMS_ITS | Encounter Summary ---
Author Organization [facility] Healthcare Address [address] [place] [address] Care Team Providers Care Double End Tenoner Setter Name Role Phone NoemyCassandra reynolds DO Primary Care Provider +1- [phone] Reason for Referral * Diagnostic Imaging (Routine) - Closed Specialty Diagnoses / Procedures Referred By Contac t Referred To Contact Diagnoses Status post orthopedic surgery, follow-up exam Procedures XR Shoulder Right 2 or More Views Mina Washington MD [address] [employer] [facility] [place] [address] Phone: tel: fax: [address] [phone] Referral ID Status Reason Start Date Expiration Date Visits Re quested Visits Authorized [id number] Closed 10/07/2021 11/06/2022 1 1 NG TIER Reason for Visit * Diagnostic Imaging (Routine) - Closed Specialty Diagnoses / Procedures Referred By Contac t Referred To Contact Diagnoses Status post orthopedic surgery, follow-up exam Procedures XR Shoulder Right 2 or More Views Mina Washington MD [address] [employer] [facility] [place] [address] Phone: tel: fax: [address] [phone] Referral ID Status Reason Start Date Expiration Date Visits Re quested Visits Authorized [id number] Closed 10/07/2021 11/06/2022 1 1 Encounter Details Date Type Department Care Team (Late st Contact Info) Description 10/09/2021 11:26 AM CASING TIER - 10/09/2021 11:59 PM CASING TIER Hospital Encounter [facility] [address] [place] [address] Mina Washington MD [address] [facility] 6A[address]6B[address] [place] [address] Status post orthopedic surgery, follow-up exam Discharge Disposition: Discharge to home or self [...] VIEWS Schedule Routine, Read Routine (OP Routine) 10/09/2021 11:38 AM CASING TIER Status post orthopedic surgery, follow-up exam documented in this encounter Results * XR Shoulder Right 2 or More Views (10/09/2021 11:38 AM CASING TIER) Anatomical Region Laterality Modality Upper Extremities, Shoulder Right Comp uted Radiography 10/09/2021 11:5 5 AM CASING TIER Impressions 10/09/2021 11:55 AM CASING TIER Reverse umen-rup-ruewpu right total shoulder arthroplasty in unchanged near anatomic position. Electronically signed by: Efrem Natarajan M.D. Narrative 10/09/2021 11:55 AM CASING TIER EXAMINATION: Right shoulder minimum 2 views HISTORY: Right rotator cuff arthropathy FINDINGS: 4 views of the right shoulder were performed with comparison made to 09/04/2021. There is a reverse edlv-qyt-nguycq right total shoulder arthroplasty in near-anatomic position. Mild separation between the superior glenosphere and the glenoid is likely unchanged. There is no definite periprosthetic lucency. Attention on follow-up is suggested. There is mild acromioclavicular osteoarthritis. Procedure Note Efrem Natarajan MD PhD - 10/09/2021 EXAMINATION: Right shoulder minimum 2 views HISTORY: Right rotator cuff arthropathy FINDINGS: 4 views of the right shoulder were performed with comparison made to 09/04/2021. There is a reverse yskl-uwe-jtamts right total shoulder arthroplasty in near-anatomic position. Mild separation between the superior glenosphere and the glenoid is likely unchanged. There is no definite periprosthetic lucency. Attention on follow-up is suggested. There is mild acromioclavicular osteoarthritis. IMPRESSION: Reverse wubm-dzi-rpwrrc right total shoulder arthroplasty in unchanged near anatomic position. Electronically signed by: Efrem Natarajan M.D. Mina Washington MD IMG XR PROCEDURES Fin al Result documented in this encounter Visit Diagnoses Diagnosis Status post orthopedic surgery, follow-up exam documented in this encounter Care Teams Double End Tenoner Setter Relationship Specialty Start Date End Date Cassandra Mathis DO PCP - General Family Medicine 02/10/21 documented as of this encounter
--- OUTSIDE RECORDS SUMMARY | 2024-10-16 02:24 | XMS_ITS | Encounter Summary ---
Author Organization [facility] Address [address] [place] [address] Phone Care Team Providers Care Plugger Man Name Role Phone Cassandra Mathis DO Primary Care Provider +1- [phone] Reason for Referral * Diagnostic Imaging (Routine) - Closed Specialty Diagnoses / Procedures Referred By Contac t Referred To Contact Diagnoses Status post orthopedic surgery, follow-up exam Procedures XR Shoulder Right 2 or More Views Mina Washington MD [address] [facility] [place] [place] [address] Phone: tel: fax: [facility] [address] [place] [address] Referral ID Status Reason Start Date Expiration Date Visits Re quested Visits Authorized [id number] Closed 10/07/2021 11/06/2022 1 1 PAPER CLEANER Reason for Visit * Reason Comments Post-op * Consultation (Routine) - Closed Specialty Diagnoses / Procedures Referred By Contac t Referred To Contact Orthopedic Surgery Diagnoses Right shoulder pain, unspecified chronicity Cassandra Mathis DO Phone: tel: fax: [facility] (All Locations) Referral ID Status Reason Start Date Expiration Date V isits Requested Visits Authorized [id number] Closed Specialty Services Required 10/09/2021 11/08/2022 1 1 Encounter Details Date Type Department Care Team (Late st Contact Info) Description 10/09/2021 11:15 AM WALLPAPER CLEANER Office Visit [facility] Orthopaedic Surgery [address] [facility] [address]th [place] [address] [place] [address] Mina Washington MD [address] [facility] 6A[address]6B[address] [place] [address] Rotator cuff tear arthropathy of right shoulder [...] Progress Notes * Mina Washington MD - 10/09/2021 11:15 AM CST Images from the original note were not included. POST-OPERATIVE PATIENT VISIT INTERIM HISTORY Date of Surgery: August 19, 2021 Procedure: Right reverse shoulder arthroplasty Chung Mueller returns today for follow-up 6 weeks from surgery. He continues to do well. PHYSICAL EXAMINATION Overhead elevation is to 140 degrees, external rotation is to 40 degrees, internal rotation is to lower lumbar spine. REVIEW OF X-RAYS/STUDIES I ordered and independently interpreted 4 views of the right shoulder, these show reverse shoulder arthroplasty in appropriate alignment. Assessment/Plan IMPRESSION/DIAGNOSIS 6 weeks status post above, doing well TREATMENT PLAN Overall, patient is doing well. We will ramp up PT to work on range of motion and strengthening. I'll see him back in 6 weeks. We reviewed precautions and the patient voiced understanding. All questions were answered today. FOLLOW-UP 6 weeks with new right shoulder x-rays. My total encounter time on 10/09/2021 was 15 minutes which was spent in the activities documented in the note. This includes time spent prior to the visit and after the visit in direct care of the patient. This time does not include time spent in any separately reportable services. Mina Washington MD Shelter Monitor of Orthopedic Surgery Shoulder and Elbow Service [facility] Orthopedics [facility] Dr. Mina Washington dictating using Fluency Direct. Oncology Registrar variances may occur. PAPER CLEANER documented in this encounter Plan of Treatment Not on file documented as of this encounter Results * XR Shoulder Right 2 or More Views (10/09/2021 11:38 AM WALLPAPER CLEANER) Anatomical Region Laterality Modality Upper Extremities, Shoulder Right Comp uted Radiography 10/09/2021 11:5 5 AM WALLPAPER CLEANER Impressions 10/09/2021 11:55 AM WALLPAPER CLEANER Reverse tkzq-fcr-rghuwz right total shoulder arthroplasty in unchanged near anatomic position. Electronically signed by: Efrem Natarajan M.D. Narrative 10/09/2021 11:55 AM WALLPAPER CLEANER EXAMINATION: Right shoulder minimum 2 views HISTORY: Right rotator cuff arthropathy FINDINGS: 4 views of the right shoulder were performed with comparison made to 09/04/2021. There is a reverse tjcl-yxs-jmyepg right total shoulder arthroplasty in near-anatomic position. [...] made to 09/04/2021. There is a reverse camu-bjr-qnqclg right total shoulder arthroplasty in near-anatomic position. Mild separation between the superior glenosphere and the glenoid is likely unchanged. There is no definite periprosthetic lucency. Attention on follow-up is suggested. There is mild acromioclavicular osteoarthritis. IMPRESSION: Reverse nazl-wcf-ymyijo right total shoulder arthroplasty in unchanged near anatomic position. Electronically signed by: Efrem Natarajan M.D. Mina Washington MD IMG XR PROCEDURES Fin al Result documented in this encounter Visit Diagnoses Diagnosis Rotator cuff tear arthropathy of right shoulder- Primary Status post orthopedic surgery, follow-up exam Status post orthopedic surgery, follow-up exam documented in this encounter Historical Medications * This list may reflect changes made after this encounter. cephalexin (KEFLEX) 500 mg capsuleIndications :Rotator cuff tear arthropathy of right shoulder Take 500 mg by mouth every 12 (twelve) hours 09/14/2021 added in this encounter Orders Outpatient Referral Count Last Ordered Date Fir st Ordered Date AMB REFERRAL TO ORTHOPEDIC SURGERY 1 2021 documented in this encounter Care Teams Plugger Man Relationship Specialty Start Date End Date Cassandra Mathis DO PCP - General Family Medicine 02/10/21 documented as of this encounter
--- OUTSIDE RECORDS SUMMARY | 2024-10-16 02:24 | XMS_ITS | Encounter Summary ---
Author Organization [facility] Healthcare Address [address] [place] [address] Care Team Providers Care Tactical Intelligence Officer Name Role Phone NoemyCassandra reynolds DO Primary Care Provider +1- [phone] Reason for Referral * Diagnostic Imaging (Routine) - Closed Specialty Diagnoses / Procedures Referred By Contac t Referred To Contact Diagnoses Status post orthopedic surgery, follow-up exam Procedures XR Shoulder Right 2 or More Views Mina Washington MD [address] [employer] [facility] [place] [place] [address] Phone: tel: fax: [address] [phone] Referral ID Status Reason Start Date Expiration Date Visits Re quested Visits Authorized [id number] Closed 02/03/2022 03/05/2023 1 1 Reason for Visit * Diagnostic Imaging (Routine) - Closed Specialty Diagnoses / Procedures Referred By Contac t Referred To Contact Diagnoses Status post orthopedic surgery, follow-up exam Procedures XR Shoulder Right 2 or More Views Mina Washington MD [address] [employer] [facility] [place] [place] [address] Phone: tel: fax: [address] [phone] Referral ID Status Reason Start Date Expiration Date Visits Re quested Visits Authorized [id number] Closed 02/03/2022 03/05/2023 1 1 Encounter Details Date Type Department Care Team (Latest Contact Info) Description 02/11/2022 9:15 AM CDT - 02/11/2022 11:59 PM CDT Hospital Encounter [facility]) [address] [place] [address] Status post orthopedic surgery, follow-up exam Discharge [...] VIEWS Schedule Routine, Read Routine (OP Routine) 02/11/2022 9:37 AM CDT Status post orthopedic surgery, follow-up exam documented [...] exam documented in this encounter Care Teams Tactical Intelligence Officer Relationship Specialty Start Date End Date Cassandra Mathis DO PCP - General Family Medicine 02/10/21 documented as of this encounter
--- OUTSIDE RECORDS SUMMARY | 2024-10-16 02:24 | XMS_ITS | Encounter Summary ---
Author Organization [facility] Healthcare Address [address] [place] [address] Care Team Providers Care Pediatric Dental Hygienist Name Role Phone NoemykizzyvalentineCassandra Ruma Primary Care Provider +1- [phone] Reason for Visit * Diagnostic Imaging (Routine) - Closed Specialty Diagnoses / Procedures Referred By Contac t Referred To Contact Diagnoses Rotator cuff tear arthropathy of right shoulder Procedures XR Shoulder Right 2+ View Mina Washington MD [address] [facility] [place] [address] Phone: tel: fax: [address] [phone] Referral ID Status Reason Start Date Expiration Date Visits Re quested Visits Authorized [id number] Closed 09/04/2021 10/04/2022 1 1 Encounter Details Date Type Department Care Team (Late st Contact Info) Description 09/04/2021 10:43 AM FILLING HAULER - 09/04/2021 11:59 PM [facility] Hospital Encounter [facility]) [address] [place] [address] Mina Washington MD [address] [facility] [place] [address] Discharge Disposition: Discharge to home or self [...] Read Routine (OP Routine) 09/04/2021 10:56 AM FILLING HAULER Rotator cuff tear arthropathy of right shoulder documented in this encounter Results * XR Shoulder Right 2+ View (09/04/2021 10:56 AM FILLING HAULER) Anatomical Region Laterality Modality Upper Extremities, Shoulder Right Comp uted Radiography 09/04/2021 11:2 3 AM FILLING HAULER Impressions 09/04/2021 11:23 AM FILLING HAULER Reverse jxey-atq-gyciki right total shoulder arthroplasty in near-anatomic position. Electronically signed by: Efrem Natarajan M.D. Narrative 09/04/2021 11:23 AM FILLING HAULER EXAMINATION: Right shoulder minimum 2 views HISTORY: Right rotator cuff arthropathy FINDINGS: 4 views of the right shoulder were performed with comparison made to 08/19/2021. There is a reverse fcxs-kav-wpzxre right total shoulder arthroplasty in near-anatomic position. There is no periprosthetic lucency or fracture. There is mild acromioclavicular osteoarthritis. Soft tissue gas has resolved. Procedure Note Efrem Natarajan MD PhD - 09/04/2021 EXAMINATION: Right shoulder minimum 2 views HISTORY: Right rotator cuff arthropathy FINDINGS: 4 views of the right shoulder were performed with comparison made to 08/19/2021. There is a reverse exny-nyk-hywumh right total shoulder arthroplasty in near-anatomic position. There is no periprosthetic lucency or fracture. There is mild acromioclavicular osteoarthritis. Soft tissue gas has resolved. IMPRESSION: Reverse fcgh-mzk-ixkmnl right total shoulder arthroplasty in near-anatomic position. Electronically signed by: Efrem Natarajan M.D. Mina Washington MD IMG XR PROCEDURES Fin al Result documented in this encounter Visit Diagnoses Not on filedocumented in this encounter Care Teams Pediatric Dental Hygienist Relationship Specialty Start Date End Date Cassandra Mathis DO PCP - General Family Medicine 02/10/21 documented as of this encounter
--- OUTSIDE RECORDS SUMMARY | 2024-10-16 02:24 | XMS_ITS | Encounter Summary ---
Author Organization [facility] Address [address] [place] [address] Phone Care Team Providers Care Plier Worker Name Role Phone NoemykizzyvalentineKaitlinmandie Hendrix Primary Care Provider +1- [phone] Reason for Referral * Diagnostic Imaging (Routine) - Closed Specialty Diagnoses / Procedures Referred By Contac t Referred To Contact Diagnoses Status post orthopedic surgery, follow-up exam Procedures XR Shoulder Right 2 or More Views Mina Washington MD [address] [employer] [place] [address] Phone: tel: fax: [facility] [address] [place] [address] Referral ID Status Reason Start Date Expiration Date Visits Re quested Visits Authorized [id number] Closed 11/26/2021 12/26/2022 1 1 ITY FLOW IRRIGATOR Reason for Visit * Reason Comments Follow-up Encounter Details Date Type Department Care Team (Late st Contact Info) Description 11/27/2021 10:15 AM GRAVITY FLOW IRRIGATOR Office Visit [facility] Orthopaedic Surgery [address] [facility] 12th [place] [id number] Mina Washington MD [address] [facility] [address] Status post orthopedic surgery, follow-up exam (Primary [...] Progress Notes * Mina Washington MD - 11/27/2021 10:15 AM CST Images from the original note were not included. POST-OPERATIVE PATIENT VISIT INTERIM HISTORY Date of Surgery: August 19, 2021 Procedure: Right reverse shoulder arthroplasty Chung Mueller returns today for follow-up 3 months from surgery. Overall, he is doing very well. He is pleased with his progress. PHYSICAL EXAMINATION Active elevation is to 150??, internal rotation is to 40??, internal rotation is to lower lumbar spine. Neurovascular intact throughout. REVIEW OF X-RAYS/STUDIES I ordered and independently interpreted 4 views of the right shoulder today, these show reverse arthroplasty in appropriate positioning. Assessment/Plan IMPRESSION/DIAGNOSIS Three months status post right reverse shoulder arthroplasty TREATMENT PLAN Patient is doing very well. He will continue increase activities as tolerated. He will start swinging a golf club soon. I will see him back in 3 months. All questions were answered today. FOLLOW-UP Three months with new right shoulder x-rays My total encounter time on 11/27/2021 was 15 minutes which was spent in the activities documented inthe note. This includes time spent prior to the visit and after the visit in direct care of the patient. This time does not include time spent in any separately reportable services. Mina Washington MD Project Geophysicist of Orthopedic Surgery Shoulder and Elbow Service [facility] Orthopedics [facility] Dr. Mina Washington dictating using Fluency Direct. Plant Etiologist variances may occur. ITY FLOW IRRIGATOR documented in this encounter Plan of Treatment Not on file documented as of this encounter Results * XR Shoulder Right 2 or More Views (11/27/2021 9:56 AM GRAVITY FLOW IRRIGATOR) Anatomical Region Laterality Modality Upper Extremities, Shoulder Right Comp uted Radiography 11/27/2021 10:1 2 AM GRAVITY FLOW IRRIGATOR Impressions 11/27/2021 10:12 AM GRAVITY FLOW IRRIGATOR IMPRESSION: ?? 1. 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 Electronically signed by: Abhi Dorantes M.D. Narrative 11/27/2021 10:12 AM GRAVITY FLOW IRRIGATOR EXAMINATION: XR SHOULDER RIGHT 2 OR MORE VIEWS HISTORY: Right shoulder arthroplasty FINDINGS: 4 views of the right shoulder are submitted for interpretation with comparison dated 10/09/2021. There is unchanged right acromioclavicular joint osteoarthritis. There is an unchanged right reverse total shoulder arthroplasty in near-anatomic alignment without periprosthetic fracture or osteolysis. Procedure Note Abhi Dorantes MD - 11/27/2021 EXAMINATION: XR SHOULDER RIGHT 2 OR MORE VIEWS HISTORY: Right shoulder arthroplasty FINDINGS: 4 views of the right shoulder are submitted for interpretation with comparison dated 10/09/2021. There is unchanged right acromioclavicular joint osteoarthritis. There is an unchanged right reverse total shoulder arthroplasty in near-anatomic alignment without periprosthetic fracture or osteolysis. IMPRESSION: IMPRESSION: 1. 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 Electronically signed by: Abhi Dorantes M.D. Mina Washington MD IMG XR PROCEDURES Fin al Result documented in this encounter Visit Diagnoses Diagnosis Status post orthopedic surgery, follow-up exam- Primary Rotator cuff tear arthropathy of right shoulder Status post orthopedic surgery, follow-up exam documented in this encounter Care Teams Plier Worker Relationship Specialty Start Date End Date Cassandra Mathis DO PCP - General Family Medicine 02/10/21 documented as of this encounter
--- OUTSIDE RECORDS SUMMARY | 2024-10-16 02:24 | XMS_ITS | Encounter Summary ---
Author Organization [facility] Address [address] [address] Care Team Providers Care Wedding Cake Designer Name Role Phone Cassandra Mathis DO Primary Care Provider +1- [phone] Reason for Visit * Reason Comments COVID-19 EVALUATION pre-op testing Encounter Details Date Type Department Care Team (Latest Contact Info) Description 08/15/2021 10:45 AM RUBBER ATTACHER Clinical Support [facility] Outpatient Center [address] [address] Encounter for screening for COVID-19 (Primary Dx) Social History Tobacco Use Types [...] as of this encounter Progress Notes * Tonya Dill MA - 08/15/2021 10:45 AM CST Patient presents today for pre procedure COVID-19 test. N95 mask, gown, gloves, and eye protection worn during swab collection. Patient instructed to self-isolate from time of swab collection until scheduled surgery. ER ATTACHER documented in this encounter Plan of Treatment Not on file documented as of this encounter Visit Diagnoses Diagnosis Encounter for screening for COVID-19- Primary documented in this encounter Care Teams Wedding Cake Designer Relationship Specialty Start Date End Date Cassandra Mathis DO PCP - General Family Medicine 02/10/21 documented as of this encounter
--- OUTSIDE RECORDS SUMMARY | 2024-10-16 02:24 | XMS_ITS | Encounter Summary ---
Author Organization [facility] Healthcare Address [address] [place] [address] Care Team Providers Care Front Desk Associate Name Role Phone Cassandra Mathis DO Primary Care Provider +1- [phone] Encounter Details Date Type Department Care Team (Latest Contact Info) Description 08/11/2023 8:30 AM CUSTOMER SOLUTIONS TEAMMATE - 08/11/2023 11:59 PM CUSTOMER SOLUTIONS TEAMMATE Hospital Encounter [facility]) [address] [place] [id number] Status post orthopedic surgery, follow-up exam Discharge [...] VIEWS Schedule Routine, Read Routine (OP Routine) 08/11/2023 9:07 AM CUSTOMER SOLUTIONS TEAMMATE Status post orthopedic surgery, follow-up exam documented in this encounter Results * XR Shoulder Right 2 or More Views (08/11/2023 9:07 AM CUSTOMER SOLUTIONS TEAMMATE) Anatomical Region Laterality Modality Upper Extremities, Shoulder Right Comp uted Radiography 08/11/2023 5:06 PM CUSTOMER SOLUTIONS TEAMMATE Impressions 08/11/2023 6:07 PM CUSTOMER SOLUTIONS TEAMMATE 1. ??Reverse hzxw-frr-zfqxoy right shoulder arthroplasty with near-anatomic alignment and no periprosthetic fracture or other evidence of hardware failure. 2. Unchanged moderate acromioclavicular osteoarthritis Dictated by: Jazmyn Sanchez MD The radiology attending physician has personally reviewed this study, and had reviewed and/or edited this written report and agrees with it. Electronically signed by: Yulisa Yip MD Narrative 08/11/2023 6:07 PM CUSTOMER SOLUTIONS TEAMMATE EXAMINATION: XR SHOULDER RIGHT 2 OR MORE VIEWS HISTORY: right shoulder pain status post right shoulder arthroplasty COMPARISON: X-ray on 08/12/2022. FINDINGS: 4 views of the right shoulder submitted with comparison made to 08/12/2022. ??Reverse zgsp-icn-ktvbud right shoulder arthroplasty with near-anatomic alignment. ??There [...] submitted with comparison made to 08/12/2022. Reverse koxx-ekr-odcflj right shoulder arthroplasty with near-anatomic alignment. There is no periprosthetic fracture or other evidence of hardware failure. Unchanged moderate acromioclavicular osteoarthritis. IMPRESSION: 1. Reverse chdo-ybn-xuovma right shoulder arthroplasty with near-anatomic alignment and no periprosthetic fracture or other evidence of hardware failure. 2. Unchanged moderate acromioclavicular osteoarthritis Dictated by: Jazmyn Sanchez MD The radiology attending physician has personally reviewed this study, and had reviewed and/or edited this written report and agrees with it. Electronically signed by: Yulisa Yip MD us Mina Washington MD IMG XR PROCEDURES Fin al Result documented in this encounter Visit Diagnoses Diagnosis Status post orthopedic surgery, follow-up exam documented in this encounter Care Teams Front Desk Associate Relationship Specialty Start Date End Date Cassandra Mathis DO PCP - General Family Medicine 02/10/21 documented as of this encounter
--- OUTSIDE RECORDS SUMMARY | 2024-10-16 02:24 | XMS_ITS | Encounter Summary ---
Author Organization [facility] Address [address] [place] [address] Care Team Providers Care Geospatial Information Technologist Name Role Phone NoemyCassandra reynolsd DO Primary Care Provider [phone]- [phone] Reason for Referral * Diagnostic Imaging (Routine) - Closed Specialty Diagnoses / Procedures Referred By Contac t Referred To Contact Diagnoses Status post orthopedic surgery, follow-up exam Procedures XR Shoulder Right 2 or More Views Mina Washington MD [address] [email or web address] [facility] [place] [address] Phone: tel: fax: [address] [phone] Referral ID Status Reason Start Date Expiration Date Visits Re quested Visits Authorized [id number] Closed 11/26/2021 12/26/2022 1 1 UNITY EDUCATION SPECIALIST Reason for Visit * Diagnostic Imaging (Routine) - Closed Specialty Diagnoses / Procedures Referred By Contac t Referred To Contact Diagnoses Status post orthopedic surgery, follow-up exam Procedures XR Shoulder Right 2 or More Views Mina Washington MD [address] [email or web address] [facility] [place] [address] Phone: tel: fax: [address] [phone] Referral ID Status Reason Start Date Expiration Date Visits Re quested Visits Authorized [id number] Closed 11/26/2021 12/26/2022 1 1 Encounter Details Date Type Department Care Team (Late st Contact Info) Description 11/27/2021 9:49 AM COMMUNITY EDUCATION SPECIALIST - 11/27/2021 11:59 PM COMMUNITY EDUCATION SPECIALIST Hospital Encounter [facility] [address] [place] [address] Mina Washington MD [address] [facility] [address] [place] [address] Status post orthopedic surgery, follow-up exam Discharge [...] VIEWS Schedule Routine, Read Routine (OP Routine) 11/27/2021 9:56 AM COMMUNITY EDUCATION SPECIALIST Status post orthopedic surgery, follow-up exam documented in this encounter Results * XR Shoulder Right 2 or More Views (11/27/2021 9:56 AM COMMUNITY EDUCATION SPECIALIST) Anatomical Region Laterality Modality Upper Extremities, Shoulder Right Comp uted Radiography 11/27/2021 10:1 2 AM COMMUNITY EDUCATION SPECIALIST Impressions 11/27/2021 10:12 AM COMMUNITY EDUCATION SPECIALIST IMPRESSION: ?? 1. 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 Electronically signed by: Abhi Dorantes M.D. Narrative 11/27/2021 10:12 AM COMMUNITY EDUCATION SPECIALIST EXAMINATION: XR SHOULDER RIGHT 2 OR MORE [...] exam documented in this encounter Care Teams Geospatial Information Technologist Relationship Specialty Start Date End Date Cassandra Mathis DO PCP - General Family Medicine 02/10/21 documented as of this encounter
--- OUTSIDE RECORDS SUMMARY | 2024-10-16 02:24 | XMS_ITS | Encounter Summary ---
Author Organization [facility] Healthcare Address [address] [place] [address] Care Team Providers Care Child Day Care Teacher Name Role Phone NoemyCsasandra reynolds DO Primary Care Provider [phone]- [phone] Reason for Referral * Diagnostic Imaging (Routine) - Closed Specialty Diagnoses / Procedures Referred By Contac t Referred To Contact Diagnoses Right shoulder pain, unspecified chronicity Procedures XR Shoulder Right 2 or More Views Mina Washington MD [address] [employer] [facility] [place] [address] Phone: tel: fax: [address] [phone] Referral ID Status Reason Start Date Expiration Date Visits Re quested Visits Authorized [id number] Closed 02/13/2021 03/15/2022 1 1 Reason for Visit * Diagnostic Imaging (Routine) - Closed Specialty Diagnoses / Procedures Referred By Contac t Referred To Contact Diagnoses Right shoulder pain, unspecified chronicity Procedures XR Shoulder Right 2 or More Views Mina Washington MD [address] [employer] [facility] [place] [address] Phone: tel: fax: [address] [phone] Referral ID Status Reason Start Date Expiration Date Visits Re quested Visits Authorized [id number] Closed 02/13/2021 03/15/2022 1 1 Encounter Details Date Type Department Care Team (Late st Contact Info) Description 02/20/2021 10:48 AM CDT - 02/20/2021 11:59 PM CDT Hospital Encounter [facility] [address] [place] [address] Mina Washington MD [address] [facility] [address] [place] [address] Right shoulder pain, unspecified chronicity Discharge Disposition: Discharge to home or self care Social History Tobacco Use Types Packs/Day Years Used Date Smoking Tobacco: Never Assessed Sex and Gender Information Value Date Recorded Sex Assigned at Not on file Legal Sex Male 4:29 PM CDT Gender Identity Not on file Sexual Orientation Not on file documented as of this encounter Medications at Time of Discharge allopurinoL (ZYLOPRIM) 300 mg tablet Take 300 mg by mouth every morning 01/01/2021 atorvastatin (LIPITOR) 10 mg tablet Take 10 mg by mouth daily 01/01/2021 fenofibrate (TRICOR) 54 mg tablet Take 54 mg by mouth daily 12/16/[address] (VOLTAREN) 75 mg EC tablet Take 75 mg by mouth as needed 01/02/2021 1 diclofenac sodium (VOLTAREN) 1 % gel Apply topically as needed 01/10/2021 1 documented as of this encounter Discharge Disposition Disposition Code Departure Means Destination Discharge to home or self care documented in this encounter Plan of Treatment Not on file documented as of this encounter Procedures Procedure Name Priority Date/Time Associated Diagnosis Comments XR SHOULDER RIGHT 2 OR MORE VIEWS Schedule Routine, Read Routine (OP Routine) 02/20/2021 10:56 AM CDT Right shoulder pain, unspecified chronicity documented in this encounter Results * XR Shoulder Right 2 or More Views (02/20/2021 10:56 AM CDT) Anatomical Region Laterality Modality Upper Extremities, Shoulder Right Comp uted Radiography 02/20/2021 11:0 4 AM CDT Impressions 02/20/2021 11:04 AM CDT 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 Electronically signed by: Peng Aguillon M.D. Narrative 02/20/2021 11:04 AM CDT [...] documented in this encounter Visit Diagnoses Diagnosis Right shoulder pain, unspecified chronicity documented in this encounter Care Teams Child Day Care Teacher Relationship Specialty Start Date End Date Cassandra Mathis DO PCP - General Family Medicine 02/10/21 documented as of this encounter
--- OUTSIDE RECORDS SUMMARY | 2024-10-16 02:24 | XMS_ITS | Encounter Summary ---
Author Organization [facility] Healthcare Address [address] [place] [address] Care Team Providers Care Skip Load Driver Name Role Phone Cassandra Mathis DO Primary Care Provider [phone]- [phone] Encounter Details Date Type Department Care Team (Late st Contact Info) Description 08/19/2021 8:15 AM MARKETING OPERATIONS SPECIALIST - 08/19/2021 10:25 AM [facility] Surgery [facility] Operating Room [address] [place] [address] Mina Washington MD [address] [facility] 6A/6B/12A [place] [address] Right reverse shoulder arthroplasty Surgery Details Date/Time Status Location OR Service Patient Class Case Class Case Type Trauma Case? 08/19/2021 8:15 AM Posted [facility] OPERATING ROOM OR Orthopaedics Outpatient in Bed Elective Panel 1 Procedure LRB Anes Op Region Wound Class Comments Right reverse shoulder arthroplasty Right Choice Shou lder Class I - Clean Surgeon Surgeon Role Service Panel Mina Washington MD Primary Orthopaedics 1 Bong Valenzuela MD PhD Resident - Assisting [facility] 1 Special Needs Tornier Perform documented in this encounter Social History Tobacco [...] when you are drinking? 3 or 4 11/17/202 1 Q3: How often do you have si [...] Sign Reading Time Taken Comments Blood Pressure 125/62 08/19/2021 10:25 AM MARKETING OPERATIONS SPECIALIST Pulse 68 08/19/2021 10:25 AM MARKETING OPERATIONS SPECIALIST Temperature 36 ??C (96.8 ??F) 08/19/2021 10:25 AM MARKETING OPERATIONS SPECIALIST Respiratory Rate 17 08/19/2021 10:25 AM MARKETING OPERATIONS SPECIALIST Oxygen Saturation 100% 08/19/2021 10:25 AM MARKETING OPERATIONS SPECIALIST Inhaled Oxygen Concentration - - Weight 76.9 kg (169 lb 8 oz) 08/19/2021 5:55 AM MARKETING OPERATIONS SPECIALIST Height 177.8 cm (5' 10 ) 08/19/2021 5:55 AM MARKETING OPERATIONS SPECIALIST Body Mass Index 24.32 08/19/2021 5:55 AM MARKETING OPERATIONS SPECIALIST documented in this encounter Discharge Summaries * Ophelia Jeter NP - 08/19/2021 1:11 PM CST Inpatient Orthopedic Shoulder Discharge Summary Admitting Provider: Mina Washington MD Discharge Provider: Mina Washington* Primary Care Physician at Discharge: Cassandra Mathis DO [phone] Admission Date: 08/19/2021 Discharge Date: 08/20/2021 Primary [...] Your Medications These medications were sent to [id number] Med Access AT [address] & [employer] [facility] [id number] ?? acetaminophen 500 mg capsule ?? aspirin 81 mg enteric coated tablet ?? docusate sodium 100 mg capsule ?? oxyCODONE 5 mg immediate release tablet Cosigned by Mina Washington MD at 08/20/2021 1:09 PM MARKETING OPERATIONS SPECIALIST ETING OPERATIONS SPECIALIST ETING OPERATIONS SPECIALIST documented in this encounter Medications at Time [...] Berman, OT - 08/20/2021 9:15 AM CST [facility] Occupational Therapy Treatment Patient Name: Chung Mueller Jr. Date of Service: 08/20/2021 Date of : 1950 Age: 71 y.o.male Room: [address] Admit Date: 08/19/2021 Attending Provider: No [...] no device and close supervision; loss of [id number]. Patient able to regain with close supervision. [...] needed reinforcement. Completed patient handoff and notified RNColton, of patient's location and functional status upon [...] function (per MD orders)) Marnie Berman, OT ETING OPERATIONS SPECIALIST * Peter Adams MD - 08/20/2021 5:51 [...] (Active) Site Assessment Color appropriate for ethnicity;Clean;Dry 08/19/21 1120 Amarilys-wound Assessment Intact;Dry 08/19/21 1120 Closure Approximated 08/19/21 1120 Drainage Amount None 08/19/21 1120 Dressing Status Clean, dry, intact 08/19/212000 Dressing [...] Mina Washington MD at 08/20/2021 7:35 AM MARKETING OPERATIONS SPECIALIST ETING OPERATIONS SPECIALIST ETING OPERATIONS SPECIALIST Associated attestation - Mina Washington MD - 08/20/2021 7:35 AM MARKETING OPERATIONS SPECIALIST I have seen and examined the patient on 08/20/21. I agree with the findings and plan of care as documented in the resident's/fellow's note.. * Ann Mtz NP - 08/19/2021 8:14 AM CST Chung Mueller Jr. [id number] 08/19/2021 Surgeon(s) and Role: * Mina Washington [...] or edema per pt. Ann Mtz NP ETING OPERATIONS SPECIALIST documented in this encounter H&P Notes * Mina Washington MD - 08/19/2021 6:03 AM CST I have reviewed the H&P, examined the patient, and endorse the findings as written. Plan of Care : Based on the above findings, I consider Chung Mueller Jr. to be an acceptable risk for : Procedure(s): ARTHROPLASTY RIGHT REVERSE TOTAL SHOULDER - TORNIER ETING OPERATIONS SPECIALIST Source Note - Meredith Vaughn NP - 08/05/2021 10:01 AM CDT Images from the original note were not included. Center for Preoperative Assessment and Planning Preoperative Evaluation Record Evaluation type/location: [facility] Planned procedure site: [facility] OR Date: 08/05/21 Anesthesia Evaluation Procedure(s): ARTHROPLASTY [...] Hyperlipidemia Pertinent negatives: hypertension ; CAD ; [place] ; CABG ; systolic/diastolic dysfunction w/o CHF [...] status is Fully vaccinated. Vaccination status verbally confirmed with patient. Documentation of vaccination status to be confirmed on the day of surgery by the patient providing their COVID-19 Vaccination Record Card. . Plan for pre-procedure COVID19 testing: Surgery date greater than 4 days from today. Request placed for pre-procedure COVID19 testing to be performed on 08/15/[address] [facility] will place the order for testing. Result to be reviewed by surgeon's office. . Preoperative evaluation performed by Evelyn Bradford NP on 08/05/21 at 10:52 AM. 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 Signed by: Dinora Fink NP [...] Valdivia, PT - 08/20/2021 10:51 AM CST [facility] Physical Therapy Initial Evaluation Patient Name: Chung Mueller JrKathryn Date of Service: 08/20/2021 Date of : 1950 Age: 71 y.o. male Room: [address] Admit Date: 08/19/2021 Attending Provider: Mina [...] and Level of Function: Type of Home: [facility] home Lives With: and Family- Adult son [...] family,Home Health PT Comments: Renetta Valdivia, PT ETING OPERATIONS SPECIALIST * Marnie Berman, OT - 08/19/2021 6:25 PM CST [facility] Occupational Therapy Evaluation Patient Name: Chung Mueller Jr. Date of Service: 08/19/2021 Date of : 1950 Age: 71 y.o.male Room: [address] Admit Date: 08/19/2021 Attending Provider: Mina [...] and Level of Function: Type of Home: [facility] Lives With: and son Stairs [...] , uses in community Home ADL Equipment: Fish Peddler Level of [place]: Independent with ADLs, Independent with transfers and [...] Referrals Recommended: Physical therapy consult. Raul (PT insulation supervisor) and Yanet (OT insulation supervisor) notified of recommendation.. Patient okay to discharge home: No Comments: patient needs further OT training Discharge Recommendation: Home with family,Home with 24 hour supervision,Outpatient OT (for right UE function (per MD orders)) Marnie Berman OT ETING OPERATIONS SPECIALIST documented in this encounter Miscellaneous Notes * [...] free from infection Outcome: Adequate for Discharge ETING OPERATIONS SPECIALIST * Plan of Care - Suman Chandler RN - 08/20/2021 1:53 AM CST Problem: Health Behavior: Goal: Understanding of discharge needs will improve Outcome: Progressing Problem: Safety: Goal: Will remain free from falls Outcome: Progressing Goals: Clinical Goals for the Shift: Pain <4. Ambulate as tolerated. Summary: Pain managed with a rating of 0/10. Pt tolerated ambulating. ETING OPERATIONS SPECIALIST * Op Note - Mina Washington MD [...] Implant Name Type Inv. Item Serial No. Chairman And Chief Executive Officer Lot No. LRB No. Used Action TORNIER INC [id number] TORNIER AEQUALIS PERFORM 15MM PRESS FIT LONG POST SHOULDER - [id number] - [id number] Other - see comments TORNIER INC [id number] Tornier Aequalis Perform 15mm Press Fit Long Post Shoulder [id number] [email or web address] Right 1 Implanted TORNIER INC [id number] TORNIER AEQUALIS PERFORM 25MM LATERALIZE AUGMENT REVERSE SHOULDER - [id number] Other - see comments TORNIER INC [id number] Tornier Aequalis Perform 25mm Lateralize AugmentReverse Shoulder [id number] [employer]ot[employer] Inc Right 1 Implanted TORNIER INC [id number] TORNIER AEQUALIS PERFORM 39MM REVERSE SHOULDER STANDARD SPHERE - [id number] Other - see comments TORNIER INC [id number] Tornier Aequalis Perform 39mm Reverse Shoulder Standard Sphere [id number] Global Loc[employer] Inc Right 1 Implanted TORNIER INC [id number] AEQUALIS PERFORM REVERSED 5MM 34MM PERIPHERAL GLENOID SCREW - [id number] Screw TORNIER INC [id number] Aequalis Perform Reversed 5mm 34mm Peripheral Glenoid Screw [email or web address] Right 2 Implanted [employer] INC [id number] INSERT PERFORM 10 DEG [id number] - [id number] - [id number] Other- see comments [employer]inity [employer] TECHNOLOGY INC [id number] INSERT PERFORM 10 DEG [id number] [employer] Right 1 Implanted Confer MEDICAL TECHN[employer] INC [id number] STEM PERFORM SZ 3 HUMERAL - SNA - [id number] Other - see comments [employer] INC [id number] STEM PERFORM SZ 3 HUMERAL NA [employer] [place] [employer] Right 1 Implanted OPERATIVE DETAILS Estimated Blood [...] reamed appropriately without version correction of the [place] glenoid face. Glenoid base plate was fastened [...] during all remaining portions of the case. ETING OPERATIONS SPECIALIST * Brief Op Note - Bong Valenzuela MD PhD - 08/19/2021 8:45 AM MARKETING OPERATIONS SPECIALIST Operative Progress Note Surgical Team: Surgeon(s) and Role: * Mina Washington MD - Primary * Bong Valenzuela MD PhD - Resident - Assisting Anesthesiologist: Kristina Tidwell MD FISHERIES DIVER: Darnell Rios CRNA Channel Worker: Amy Rogers RN Scrub: Amara Isabel ST; Kt Martinez ST CHAIR PAD MAKER: Jackie Morales RN DATE OF SURGERY : [...] Implant Name Type Inv. Item Serial No. Chairman And Chief Executive Officer Lot No. LRB No. Used Action TORNIER INC [id number] TORNIER AEQUALIS PERFORM 15MM PRESS FIT LONG POST SHOULDER - [id number] - [id number] Other - see comments TORNIER INC [id number] Tornier Aequalis Perform 15mm Press Fit Long Post Shoulder [id number] [employer] Right 1 Implanted TORNIER INC [id number] TORNIER AEQUALIS PERFORM 25MM LATERALIZE AUGMENT REVERSE SHOULDER - [id number] Other - see comments TORNIER INC [id number] Tornier Aequalis Perform 25mm Lateralize AugmentReverse Shoulder [id number] [employer]ot[employer] Inc Right 1 Implanted TORNIER INC [id number] TORNIER AEQUALIS PERFORM 39MM REVERSE SHOULDER STANDARD SPHERE - [id number] Other - see comments TORNIER INC [id number] Tornier Aequalis Perform 39mm Reverse Shoulder Standard Sphere [id number] [employer]ot[employer] Inc Right 1 Implanted TORNIER INC [id number] AEQUALIS PERFORM REVERSED 5MM 34MM PERIPHERAL GLENOID SCREW - [id number] Screw TORNIER INC [id number] Aequalis Perform Reversed 5mm 34mm Peripheral Glenoid Screw [employer] [place] [employer] Right 2 Implanted [employer] TECHNOLOGY INC [id number] INSERT PERFORM 10 DEG [id number] - [id number] - [id number] Other- see comments [employer] TECHNOLOGY INC [id number] INSERT PERFORM 10 DEG [id number] [employer]a Networks Right 1 Implanted fanatix INC DWX3SS STEM PERFORM SZ 3 HUMERAL - SNA - [id number] Other - see comments [employer] TECHNOLOGY INC [id number] STEM PERFORM SZ 3 HUMERAL NA [email or web address] Right 1 Implanted Blood/Blood Products Transfused: 0 mls Complications: None Condition on Discharge from the operating room was stable Bong Valenzuela MD PhD Date: 08/19/2021 Time: 12:17 PM TEACHING ATTESTATION : I was present and directly participated in the entire procedure (including opening and closing). Cosigned by Mina Washington MD at 08/19/2021 1:26 PM MARKETING OPERATIONS SPECIALIST ETING OPERATIONS SPECIALIST ETING OPERATIONS SPECIALIST documented in this encounter Plan of Treatment Not on file documented as of this encounter Procedures Procedure Name Priority Date/Time Associated Diagnosis Comments EGFR Routine 08/20/2021 3:00 AM MARKETING OPERATIONS SPECIALIST DIFFERENTIAL AUTO Routine 08/20/2021 3:0 0 AM MARKETING OPERATIONS SPECIALIST CBC WITH AUTO DIFFERENTIAL Routine 08/20/2021 3:00 AM MARKETING OPERATIONS SPECIALIST BASIC METABOLIC PANEL Routine 08/20/2021 3:00 AM MARKETING OPERATIONS SPECIALIST XR SHOULDER RIGHT 2 OR MORE VIEWS IP Routine 08/19/2021 10:19 AM MARKETING OPERATIONS SPECIALIST ARTHROPLASTY REVERSE TOTAL SHOULDER - TORNIER 08/19/2021 8:13 AM MARKETING OPERATIONS SPECIALIST Rotator cuff tear arthropathy of right shoulder Special Needs Tornier Perform B ABO / RH CONFIRMATION TESTING STAT 08/19/2021 7:40 AM MARKETING OPERATIONS SPECIALIST ABO/RH STAT 08/19/2021 6:26 AM MARKETING OPERATIONS SPECIALIST ANTIBODY SCREEN STAT 08/19/2021 6:26 AM MARKETING OPERATIONS SPECIALIST TYPE AND SCREEN STAT 08/19/2021 6:26 AM MARKETING OPERATIONS SPECIALIST documented in this encounter Results * eGFR (08/20/2021 3:00 AM MARKETING OPERATIONS SPECIALIST) eGFR 89 mL/min/1.7 3 m2 [facility] Comment: Interpretive Data Reference Interval Normal ?>/= [...] last reviewed 2020 Blood 08/20/2021 3:00 AM MARKETING OPERATIONS SPECIALIST 08/20/2021 3:06 AM MARKETING OPERATIONS SPECIALIST us Mina Washington MD LAB BLOOD ORDERABLES Final Result Performing Organization Address City/State/[facility] Co de Phone Number DEL [facility] [address] [facility]. [place] [address] * (ABNORMAL) Differential, auto (08/20/2021 3:00 AM MARKETING OPERATIONS SPECIALIST) Neutrophil abs 4.3 1.7 - 6.5 K/cumm [facility] Imm gran abs 0.0 0.0 - 0.1 K/cumm [facility] Lymphocyte abs 0.7(L) 0.8 - 3.3 K/cumm [facility] Monocyte abs 0.4 0.2 - 0.8 K/cumm [facility] Eosinophil abs 0.1 0.0 - 0.5 K/cumm [facility] Basophil abs 0.0 0.0 - 0.1 K/cumm [facility] Neutrophil pct 76.6 % [facility] Comment: Interpretive Data Percent cell count reference ranges are not reported, since discordance with absolute values may lead to misinterpretation of CBC data. Current Interpretive Data was last revised on 2018. Imm gran pct 0.4 % [facility] Comment: Interpretive Data Percent cell count reference ranges are not reported, since discordance with absolute values may lead to misinterpretation of CBC data. Current Interpretive Data was last revised on 2018. Lymphocyte pct 12.9 % [facility] Comment: Interpretive Data Percent cell count reference ranges are not reported, since discordance with absolute values may lead to misinterpretation of CBC data. Current Interpretive Data was last revised on 2018. Monocyte pct 7.8 % [facility] Comment: Interpretive Data Percent cell count reference ranges are not reported, since discordance with absolute values may lead to misinterpretation of CBC data. Current Interpretive Data was last revised on 2018. Eosinophil pct 1.9 % [facility] Comment: Interpretive Data Percent cell count reference ranges are not reported, since discordance with absolute values may lead to misinterpretation of CBC data. Current Interpretive Data was last revised on 2018. Basophil pct 0.4 % [facility] Comment: Interpretive Data Percent cell count reference ranges are not reported, since discordance with absolute values may lead to misinterpretation of CBC data. Current Interpretive Data was last revised on 2018. Blood 08/20/2021 3:00 AM MARKETING OPERATIONS SPECIALIST 08/20/2021 3:06 AM MARKETING OPERATIONS SPECIALIST us Mina Washington MD LAB BLOOD ORDERABLES Final Result [facility] [address] [facility]. [place] [address] * (ABNORMAL) Basic metabolic panel (08/20/2021 3:00 AM MARKETING OPERATIONS SPECIALIST) Sodium 134(L) 135 - 145 mmol/L [facility] Potassium, pl 4.0 3.3 - 4.9 mmol/L [facility] Chloride 101 97 - 110 mmol/L [facility] CO2 23 22 - 32 mmol/L [facility] Anion gap 11 2 - 15 mmol/L [facility] BUN 8 8 - 25 mg/dL [facility] Creatinine 0.80 0.80 - 1.30 mg/dL [facility] Glucose 123 70 - 199 mg/dL [facility] Comment: Interpretive Data Fasting glucose >/= 126 [...] 2017. Calcium 8.6 8.5 - 10.3 mg/dL [facility] Blood 08/20/2021 3:00 AM MARKETING OPERATIONS SPECIALIST 08/20/2021 3:06 AM MARKETING OPERATIONS SPECIALIST Narrative [facility] - 08/20/2021 3:40 AM MARKETING OPERATIONS SPECIALIST Daily for three days. Mina Washington MD LAB BLOOD ORDERABLES Final Result [facility] [address] [facility] Department [place] [address] * (ABNORMAL) CBC with auto differential (08/20/2021 3:00 AM MARKETING OPERATIONS SPECIALIST) Pathologist [facility] WBC 5.7 3.8 - 9.9 K/cumm [facility] Hgb 11.2(L) 13.0 - 17.5 g/dL [facility] Hct 32.8(L) 38.9 - 50.3 % [facility] Plt 131(L) 150 - 400 K/cumm [facility] MPV 9.5 9.1 - 12.3 fL [facility] RBC 3.30(L) 4.30 - 5.80 M/cumm [facility] MCV 99.4(H) 81.3 - 96.4 fL [facility] MCH 33.9(H) 27.1 - 33.3 pg [facility] MCHC 34.1 32.3 - 35.7 g/dL [facility] RDW CV 13.0 11.1 - 14.9 % [facility] RDW SD 47.1 35.7 - 48.1 fL [facility] NRBC abs 0.00 0.00 - 0.01 K/cumm [facility] Blood 08/20/2021 3:00 AM MARKETING OPERATIONS SPECIALIST 08/20/2021 3:06 AM MARKETING OPERATIONS SPECIALIST Narrative [facility] - 08/20/2021 3:08 AM MARKETING OPERATIONS SPECIALIST Daily for three days. Mina Washington MD LAB BLOOD ORDERABLES Final Result Performing Organization Address City/State/[facility] Co wa Phone Number [facility] [address] [facility]. [place] [address] * XR Shoulder Right 2+ View (08/19/2021 10:19 AM MARKETING OPERATIONS SPECIALIST) Anatomical Region Laterality Modality Upper Extremities, Shoulder Right Comp uted Radiography 08/19/2021 10:2 3 AM MARKETING OPERATIONS SPECIALIST Impressions 08/19/2021 10:23 AM MARKETING OPERATIONS SPECIALIST 1. New reverse right total shoulder arthroplasty for rotator cuff tear arthropathy. Electronically signed by: Anthony Gallagher M.D. Narrative 08/19/2021 10:23 AM MARKETING OPERATIONS SPECIALIST EXAMINATION: XR SHOULDER RIGHT 2 OR [...] / Rh Confirmation Testing (08/19/2021 7:40 AM MARKETING OPERATIONS SPECIALIST) ABO/Rh Confirmation O Positive [facility] Blood 08/19/2021 7:40 AM MARKETING OPERATIONS SPECIALIST 08/19/2021 7:43 AM MARKETING OPERATIONS SPECIALIST Evelyn Bradford NP LAB BLOOD ORDERABLES Final Result Performing Organization Address [facility] Co de Phone Number DEL [facility] [address] [facility] [place] [address] * Antibody screen (08/19/2021 6:26 AM MARKETING OPERATIONS SPECIALIST) Donya, indirect, Gel Interpretation Negative ABSC [facility] Blood 08/19/2021 6:26 AM MARKETING OPERATIONS SPECIALIST 08/19/2021 6:30 AM MARKETING OPERATIONS SPECIALIST Narrative [facility] - 08/19/2021 7:20 AM MARKETING OPERATIONS SPECIALIST Has the patient had Daratumumab or Isatuximab in the past 6 months?->Unknown Evelyn Bradford NP LAB BLOOD BANK TEST ORDERAB LES Final Result Performing Organization Address [facility] Co de Phone Number [facility] [address] [place] [address] * ABO/Rh (08/19/2021 6:26 AM MARKETING OPERATIONS SPECIALIST) ABO/Rh O Positive [facility] Blood 08/19/2021 6:26 AM MARKETING OPERATIONS SPECIALIST 08/19/2021 6:30 AM MARKETING OPERATIONS SPECIALIST Narrative [facility] - 08/19/2021 7:19 AM MARKETING OPERATIONS SPECIALIST Has the patient had Daratumumab or Isatuximab in the past 6 months?->Unknown Evelyn Bradford NP LAB BLOOD BANK TEST ORDERAB LES Final Result [facility] [address] [facility] [place] [address] documented in this encounter Visit Diagnoses Diagnosis Rotator cuff tear arthropathy of right shoulder- Primary HLD (hyperlipidemia) Other and unspecified hyperlipidemia Rotator cuff tear arthropathy of right shoulder documented in this encounter Admitting Diagnoses Diagnosis Rotator cuff tear arthropathy of right shoulder documented in this encounter Administered Medications Inactive Administered Medications - up to 3 most recent administrations Medication Order MAR Action Action Date Dose Rate Site acetaminophen (TYLENOL) tablet 1,000 mg 1,000 mg, oral, Every 6 hours scheduled, First dose on Tue08/19/21 at 1200, Indications: PainIndications:Pain Given 08/20/2021 5:49 AM MARKETING OPERATIONS SPECIALIST 1,000 mg Given 08/19/2021 11:20 PM MARKETING OPERATIONS SPECIALIST 1,000 mg Given 08/19/2021 5:42 PM MARKETING OPERATIONS SPECIALIST 1,000 mg allopurinoL (ZYLOPRIM) tablet 300 mg 300 mg, oral, Every morning, First dose on Tue08/20/21 at 0900 Given 08/20/2021 8:33 AM MARKETING OPERATIONS SPECIALIST 300 mg aspirin enteric coated tablet 81 mg 81 mg, oral, 2 times daily, First dose (after last modification) on Tue08/19/21 at 2100, Do not crush, chew, cut, dissolve, open or otherwise manipulate tablet/capsule., Indications: Deep Vein Thrombosis PreventionIndications:Deep Vein Thrombosis Prevention Given 08/20/2021 8:33 AM MARKETING OPERATIONS SPECIALIST 81 mg Given 08/19/2021 9:57 PM MARKETING OPERATIONS SPECIALIST 81 mg atorvastatin (LIPITOR) tablet 10 mg 10 mg, oral, Daily, First dose on Viviane 08/20/21 at 0900 Given 08/20/2021 8:34 AM MARKETING OPERATIONS SPECIALIST 10 mg bupivacaine preservative free 1,000 mg/500 mL (0.2%) infusion (premix) Continuous Rate: 6 mL/hr, Patient Bolus Dose: 4 mL, Lockout Interval: 30 Minutes, Catheter Site: Interscalene, Catheter Side: Right, perineural, Continuous, Starting on Tue08/19/21 at 1015, Until Viviane 08/20/21 at 1537, 500 mL, Routine Rate/Dose Verify 08/20/2021 3:11 AM MARKETING OPERATIONS SPECIALIST Rate/Dose Verify 08/19/2021 7:56 PM MARKETING OPERATIONS SPECIALIST New Bag 08/19/2021 10:14 AM MARKETING OPERATIONS SPECIALIST 1,000 mg ceFAZolin (ANCEF) 1 gram/10 mL in sterile water (premix) 1,000 mg 1,000 mg, intravenous, at 200 mL/hr, Administer over 3 Minutes, Every 8 hours scheduled, First dose on Tue08/19/21 at 1600, For 2 doses, Indications: Prophylaxis, SurgicalIndications:Prophylaxis, Surgical Given 08/19/2021 11:20 PM MARKETING OPERATIONS SPECIALIST 1,000 mg 200 mL/hr Given 08/19/2021 3:42 PM MARKETING OPERATIONS SPECIALIST 1,000 mg 200 mL/hr ceFAZolin (ANCEF) injection Administer over 3 Minutes, As needed, Starting on Tue08/19/21 at 0850, Intra-Op Given 08/19/2021 8:50 AM MARKETING OPERATIONS SPECIALIST 1,000 mg Surgical Site cholecalciferol (VITAMIN D-3) tablet 1,000 Units 1,000 Units, oral, Every morning, First dose on Viviane 08/20/21 at 0900 Given 08/20/2021 8:34 AM MARKETING OPERATIONS SPECIALIST 1,000 Units cyanocobalamin (Vitamin B-12) tablet 1,000 mcg 1,000 mcg, oral, Every morning, First dose on Viviane 08/20/21 at 0900, Indications: Prevention of Vitamin B12 DeficiencyIndications:Prevent ion of Vitamin B12 Deficiency Given 08/20/2021 8:34 AM MARKETING OPERATIONS SPECIALIST 1,000 mcg docusate sodium (COLACE) capsule 100 mg 100 mg, oral, 2 times daily, First dose on Tue08/19/21 at 1145, Hold for diarrhea, Indications: constipationIndications:const ipation Given 08/20/2021 8:33 AM MARKETING OPERATIONS SPECIALIST 100 mg Given 08/19/2021 9:57 PM MARKETING OPERATIONS SPECIALIST 100 mg Given 08/19/2021 11:51 AM MARKETING OPERATIONS SPECIALIST 100 mg fenofibrate nanocrystallized (TRICOR) tablet 48 mg 48 mg, oral, Daily, First dose on Viviane 08/20/21 at 0900 Given 08/20/2021 8:34 AM MARKETING OPERATIONS SPECIALIST 48 mg Lactated Ringer's (LR) infusion 30 mL/hr, intravenous, Continuous, Starting on Tue08/19/21 at 0630, For 4 hours, Pre-Op, Use a 500 ml bag for End Stage Renal Disease Patients. Discontinue if fluid still running once patient arrives to floor. New Bag 08/19/2021 8:46 AM MARKETING OPERATIONS SPECIALIST Rate/Dose Verify 08/19/2021 8:09 AM MARKETING OPERATIONS SPECIALIST 30 mL/h r New Bag 08/19/2021 6:27 AM MARKETING OPERATIONS SPECIALIST 30 mL/hr 30 mL/hr oxyCODONE (ROXICODONE) tablet 5 mg 5 mg, oral, Every 4 hours PRN, 1st line for pain, Starting on Tue08/19/21 at 1107, May repeat in 1 hour if pain is uncontrolled or increasing. Max 2 doses within 1 dosing interval., Indications: PainIndications:Pain Given 08/20/2021 8:32 AM MARKETING OPERATIONS SPECIALIST 5 mg pregabalin (LYRICA) capsule 150 mg 150 mg, oral, 3 times daily, First dose on Tue08/19/21 at 1600 Given 08/20/2021 8:33 AM MARKETING OPERATIONS SPECIALIST 150 mg Given 08/19/2021 9:57 PM MARKETING OPERATIONS SPECIALIST 150 mg Given 08/19/2021 3:42 PM MARKETING OPERATIONS SPECIALIST 150 mg sodium chloride 0.9% infusion 100 mL/hr, intravenous, Continuous, Starting on Tue08/19/21 at 1145, May discontinue IVFs after patient with good PO intake and voiding without difficulty Rate/Dose Verify 08/19/2021 1:00 PM MARKETING OPERATIONS SPECIALIST 100 mL/hr 100 mL/hr New Bag 08/19/2021 11:45 AM MARKETING OPERATIONS SPECIALIST 100 mL/hr 100 mL/hr sodium chloride 0.9% irrigation As needed, Starting on Tue08/19/21 at 0850, Intra-Op Given 08/19/2021 8:51 AM MARKETING OPERATIONS SPECIALIST 1,000 mL Surgical Site Given 08/19/2021 8:50 AM MARKETING OPERATIONS SPECIALIST 1,000 mL Op erative Joint Space documented in this encounter Discontinued Medications Medication [...] Recently Administered Medications Times are shown in MARKETING OPERATIONS SPECIALIST. Scheduled Medication Order 08/18/2021 08/19/2021 08/20/2021 acetaminophen [...] manipulate tablet/capsule., Indications: Deep Vein Thrombosis Prevention 7 (Given - Provider: Suman Chandler RN) 0833 (Given - Provider: Colton [...] mcg, oral, Every morning, First dose on Tue08/20/21 at 0900, Indications: Prevention of Vitamin B12 Deficiency 0834 (Given - Provider: Colton Canales RN) docusate sodium (COLACE) capsule 100 mg 100 mg, oral, 2 times daily, First dose on Tue08/19/21 at 1145, Hold for diarrhea, Indications: constipation 1151 (Given - Provider: Francesca Lam RN)2157 (Given - Provider: Suman Chandler RN) 0833 (Given - Provider: Colton Canales RN) fenofibrate nanocrystallized (TRICOR) tablet 48 mg 48 mg, oral, Daily, First dose on Tue08/20/21 at 0900 0834 [...] Viviane 08/20/21 at 1537, 500 mL, Routine 1014 (New Bag - Provider: Scarlet Castelan RN)1956 (Rate/Dose Verify - Provider: Suman Chandler, SUKUMAR) 0311 (Rate/Dose Verify - Provider: Suman Chandler [...] sterile water (premix) 2,000 mg 1 08/19/2021 diphenhydrAMINE (BENADRYL) i njection 12.5 [...] chloride 0.9% flush 0.5-20 mL 3 08/03 Diet Count Last Ordered Date First Orde [...] 08/19/2021 documented in this encounter Care Teams Skip Load Driver Relationship Specialty Start Date End Date Cassandra Mathis DO PCP - General Family Medicine 02/10/21 documented as of this encounter
--- OUTSIDE RECORDS SUMMARY | 2024-10-16 02:26 | XMS_ITS | Encounter Summary ---
Author Organization [facility] Address [address] [place] [address] Care Team Providers Care Drum Puller Name Role Phone Unavailable Primary Care Provider Unavailabl e Encounter Details Date Type Department Care Team (Late st Contact Info) Description 09/11/2024 External Device Data [facility] ABSTRACTION Provider, Abstract NO ADDRESS ON FILE Social History Tobacco Use Types Packs/Day Years Used Date Smoking Tobacco: Every Day Pipe Smokeless Tobacco: Never Comments:Former- Cigarette s moker Alcohol Use Standard Drinks/Week Comments Yes 0 (1 standard drink = 0.6 oz pur e alcohol) Sex and Gender Information Value Date Recorded Sex Assigned at Not on file Gender Identity Not on file Sexual Orientation Not on file documented as of this encounter Plan of Treatment Not on file documented as of this encounter Visit Diagnoses Not on filedocumented in this encounter
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
--- OUTSIDE RECORDS SUMMARY | 2024-10-16 02:26 | XMS_ITS | Clinical Summary ---
Author Organization [facility] Address [address] [place] [address] Phone Care Team Providers Care Ice Scraper Name Role Phone Unavailable Primary Care Provider Unavailabl e Allergies Active Allergy Reactions Criticality Noted Date Comments Sertraline Diarrhea Low 02/23/2016 Medications Medication Sig Dispensed Refills Start Date End Date Status aspirin (ECOTRIN EC) 81 mg Tablet, Delayed Release (E.C.) Take 1 Tablet by mouth daily. 08/22/2024 Active atorvastatin (LIPITOR) 40 mg tablet take 1 tablet by mouth every day at bedtime 08/23/2024 Active cholecalciferol, Vitamin D3, (VITAMIN D3) 25 mcg (1,000 unit) Capsule Take 1,000 Units by mouth. Active clopidogreL (PLAVIX) 75 mg Tablet Take 1 Tablet by mouth daily. 08/22/2024 Active cyanocobalamin 1,000 mcg Tablet Take 1,000 mcg by mouth. Active doxycycline (MONODOX) 100 mg Capsule Take 100 mg by mouth. Active fenofibrate (LOFIBRA) 54 mg Take 1 Tablet by mouth daily. 08/13/2024 Active hydrOXYzine HCL (ATARAX) 25 mg tablet Take 25 mg by mouth. Active pregabalin (LYRICA) 150 mg Capsule Take 150 mg by mouth. 03/30/2024 Active VITAMIN B COMPLEX ORAL Take 1 Capsule by mouth daily in the morning. Active allopurinoL (ZYLOPRIM) 300 mg tablet Take 300 mg by mouth daily. Active Active Problems No known active problems Encounters Date Type Department Care Team Description 09/11/2024 External Device Data STL ABSTRACTION Provider, Abstract 09/06/2024 9:40 AM AGRICULTURAL SERVICE WORKER Ancillary Procedure [facility] Neurosurgery S [facility] [address] [place] [address] Wyatt Pate NP Neck pain 09/06/2024 9:30 AM AGRICULTURAL SERVICE WORKER Office Visit [facility] S [facility] [address] [facility] [address] [place] [address] Wyatt Pate NP Neck pain (Primary Dx) 09/06/2024 Telephone [facility] Neurosurgery S [facility] [address] [address] [place] [address] Wyatt Pate NP Imaging Auth from Last 3 Months Family History Relation Name Status Comments Father Mother Social History Tobacco Use Types Packs/Day Years [...] Comments Blood Pressure 109/70 09/06/2024 9:25 AM AGRICULTURAL SERVICE WORKER Pulse 60 09/06/2024 9:25 AM AGRICULTURAL SERVICE WORKER Temperature 36.7 ??C (98 ??F) 09/06/2024 9:25 AM AGRICULTURAL SERVICE WORKER Respiratory Rate 16 09/06/2024 9:25 AM AGRICULTURAL SERVICE WORKER Oxygen Saturation 99% 09/06/2024 9:25 AM AGRICULTURAL SERVICE WORKER Inhaled Oxygen Concentration - - Weight 74.4 kg (164 lb) 09/06/2024 9:25 AM AGRICULTURAL SERVICE WORKER Height 177.8 cm (5' 10 ) 09/06/2024 9:25 AM AGRICULTURAL SERVICE WORKER Body Mass Index 23.53 09/06/2024 9:25 AM AGRICULTURAL SERVICE WORKER Plan of Treatment Health Maintenance Due Date Last Done Comments ZOSTER VACCINE (2 of 3) 01/05/2012 11/10/2011 RSV VACCINE (60+ or ) (1 - 1-dose 75+ series) 2023 INFLUENZA VACCINE (#1) 2024 , 07/02/2019, 06/23/2018 COVID-19 Vaccine (2023-2 5 season) 2024 09/30/2023, 02/05/2022, 07/17/2021, Additional history exists DTAP/TDAP/TD VACCINES (3 - T d or Tdap) 05/04/2028 05/04/2018, 07/08/2008 PNEUMOCOCCAL VACCINE 65+ YEARS Completed 03/03/2016 , 08/18/2015 Procedures Procedure Name Priority Date/Time Associated Diagnosis Comments XR CERVICAL SPINE 2 OR 3 VIEWS Routine 09/06/2024 9:43 AM AGRICULTURAL SERVICE WORKER Neck pain from Last 3 Months Results * XR CERVICAL SPINE 2 OR 3 VIEWS (09/06/2024 9:43 AM AGRICULTURAL SERVICE WORKER) Anatomical Region Laterality Modality Spine Computed Radiogr aphy Narrative 09/19/2024 11:15 AM AGRICULTURAL SERVICE WORKER Cervical Spine X-ray report: Clinical Indications: neck [...] normal. Wyatt Pate NP DIAGNOSTIC IMAGING ORDERABLES from Last 3 Months
--- OUTSIDE RECORDS SUMMARY | 2024-10-16 02:26 | XMS_ITS | Encounter Summary ---
Author Organization [facility] Address [address] [place] [address] Care Team Providers Care Channel Worker Name Role Phone Unavailable Primary Care Provider Unavailabl e Encounter Details Date Type Department Care Team (Late st Contact Info) Description 09/06/2024 9:40 AM HOSTED SERVICES ANALYST Ancillary Procedure [facility] Neurosurgery S [facility] [address] [facility] [address] [place] [address] Wyatt Pate NP [address] [place] [address] Neck pain Social History Tobacco Use Types Packs/Day Years Used Date Smoking Tobacco: Every Day Pipe Smokeless Tobacco: Never Comments:Former- Cigarette parker trevizo Alcohol Use Standard Drinks/Week Comments Yes 0 [...] OR 3 VIEWS Routine 09/06/2024 9:43 AM HOSTED SERVICES ANALYST Neck pain documented in this encounter Results * XR CERVICAL SPINE 2 OR 3 VIEWS (09/06/2024 9:43 AM HOSTED SERVICES ANALYST) Anatomical Region Laterality Modality Spine Computed Radiogr aphy Narrative 09/19/2024 11:15 AM HOSTED SERVICES ANALYST Cervical Spine X-ray report: Clinical Indications: neck [...] in this encounter Visit Diagnoses Diagnosis Neck pain Cervicalgia documented in this encounter
--- OUTSIDE RECORDS SUMMARY | 2024-10-16 02:26 | XMS_ITS | Continuity of Care Document ---
Author Organization [facility] Address [address] [place] [address] Phone Care Team Providers Care Test Kitchen Home Economist Name Role Phone Driss Singh Unavailable Unavailable Advance Directives Directive Yes / No Effective Date File Name No Information Encounters Encounter Description Practice Location Reason(s) For Visit Diagnoses Date Provider Providers Copied on Encounter [facility], [address], [place], [place], [id number], [place] tel:[phone] [facility] No Information [address], [place], [address], [place]. tel:[phone] Family History Family Member Type Diagnosis Age At Onset No Information Payers Payer name Insurance type Covered green party ID Authoriza tion(s) No Information Social History Type Description Quantity Date Captured Comments Sex Male Smoking Status No Information Chief Complaint And Reason For Visit No Information Reason For Referral Reason For Referral No Information History Of Present Illness Encounter Date Complaint History Of Prese nt Illness No Information Functional Status Date Functional Assessmen t No Information Instructions Date Instruction Additional Infor mation No Information Assessments Type Assessment Date No Information Patient Care Teams Name Effective Dates (start - stop) Status Members No Information
--- OUTSIDE RECORDS SUMMARY | 2024-10-16 02:26 | XMS_ITS | Encounter Summary ---
Author Organization [facility] Address [address] [place] [address] Care Team Providers Care Esol Teacher Name Role Phone Unavailable Primary Care Provider Unavailabl e Reason for Visit * Reason Onset Date Comments Imaging Auth 09/06/2024 Encounter Details Date Type Department Care Team (Late st Contact Info) Description 09/06/2024 Telephone [facility] Neurosurgery S [facility] [address] [facility] [address] [place] [address] Wyatt Pate NP [address] [facility] [address] [place] [address] Imaging Auth Social History Tobacco Use Types Packs/Day Years [...] encounter Miscellaneous Notes * Telephone Encounter - Luz Maria Bustos - 09/10/2024 10:44 AM CST Order faxed notified pt. ALT SURFACE HEATER OPERATOR * Telephone Encounter - Kendra York RT - 09/10/2024 9:17 AM ASPHALT SURFACE HEATER OPERATOR No precert required per rep Stevo John Reference number: [id number]. Thank you! ALT SURFACE HEATER OPERATOR * Telephone Encounter - Luz Maria Bustos - 09/06/2024 10:00 AM CST Could you please precert a MRI C Spine w/o Contrast for [facility] in [place]? Thank you! ALT SURFACE HEATER OPERATOR documented in this encounter Plan of Treatment Not on file documented as of this encounter Visit Diagnoses Not on filedocumented in this encounter
== END 2024-10-09 09:24 | disposition home or self-care (01) ==
PROVIDERS: PCP Family Medicine; Visit Provider Psychiatry & Neurology Neurology
DX: G60.9 Hereditary and idiopathic neuropathy, unspecified (principal); G45.9 Transient cerebral ischemic attack, unspecified; I67.9 Cerebrovascular disease, unspecified; R29.6 Repeated falls; E55.9 Vitamin D deficiency, unspecified; E66.3 Overweight
CPT/HCPCS: 36415; 80061; 82607; 82652; 82747; 83090; 83921

== ENCOUNTER 2024-12-20 14:01 | Emergency (ER) | payer MEDICARE, SELFPAY ==
[2024-12-20] VITALS (8 sets, daily range): BP systolic 108–153; BP diastolic 65–75; PULSE 44–64; RESP 16–20; TEMP 36.3–36.4; O2SAT 99–100
--- NOTE | ~2024-12-20 | XR_ITS ---
XR chest 1V portable Ordering provider: Lanie Sanders MD History: 74 years Male with . WEAKNESS . Comparison: None. FINDINGS: MEDIASTINUM: The cardiac silhouette is not enlarged. LUNGS: No infiltrates, effusions or pneumothorax. OTHER: No free air under the diaphragm. Degenerative changes of the spine. Right shoulder arthroplast y. IMPRESSION: No acute cardiopulmonary pathology. Reviewed, dictated and finalized at location A.
--- NOTE | ~2024-12-20 | CT_ITS ---
History: Confusion PROCEDURE: CT head without contrast. COMPARISON: 04/16/2024 TECHNIQUE: Axial imaging of the head performed from the skull base to the vertex without IV contrast. Sagittal a nd coronal reformations obtained. DLP: 605 mGy-cm FINDINGS: The ventricles are normal in size, shape and position. There is no mass, mass effect or midline shift. There is no abnormal extra-axial fluid collection or intracranial hemorrhage. Mucoperiosteal thickening within the left maxillary sinus, an interval change from prior. Remaining paranasal sinuses are unremarkable. The mastoid air cells are well aerated. No acute displaced fractures within the overlying cranium. Impression: No acute intracranial hemorrhage or suspicious mass effect. Inflammatory sinus disease Reviewed, dictated and finalized at location A. Impression: No acute intracranial hemorrhage or suspicious mass effect. Inflammatory sinus disease
--- OUTSIDE RECORDS SUMMARY | 2024-12-20 14:29 | XMS_ITS ---
Author Name [facility] Organization [facility] Address [address] [place] [address] Care Team Providers Care Prototype Deicer Assembler Name Role Phone LAVERN AWAD Primary Care [...] Name Patient's Relationship to Policy [place] AETNA [facility] (WNR) MEDICARE ADVANTAGE [facility] (WNR) Oct 03, 2022 [id number] [id number] Sunita DESIR PATIENT Selected Encounter This section includes the information on record at [place] for the Encounter. Date/Time Encounter Type Encounter Description Reason Provider Source Oct 11, 2024 10:30 AM OFFICE O/P EST MOD 30 MIN PRIMARY CARE/MEDICINE ICD-10-CM E78.5 Hyperlipidemia, unspecified LAVERN AWAD Encounter Template Text not used by [place] Assessments - Encounter Diagnoses This section includes the primary and secondary diagnoses documented for the Encounter. Date/Time Primary/Secondary Diagnosis Diagnosis Name Provider Source Oct 11, 2024 12:14 PM PRIMARY Hyperlipidemia, unspecified LAVERN AWAD [facility] Oct 11, 2024 12:14 PM SECONDARY Gout, unspecified LAVERN AWAD [facility] Oct 11, 2024 12:14 PM SECONDARY Idiopathic progressive neuropathy LAVERN AWAD [facility] Oct 11, 2024 12:14 PM SECONDARY Male erectile dysfunction, unspecified LAVERN AWAD [facility] Oct 11, 2024 12:14 PM SECONDARY Other vitamin B12 deficiency anemias LAVERN AWAD [facility] Oct 11, 2024 12:14 PM SECONDARY Post-traumatic stress disorder, unspecified LAVERN AWAD [facility] Oct 11, 2024 12:14 PM SECONDARY Prediabetes LAVERN AWAD [facility] Oct 11, 2024 12:14 PM SECONDARY Rash and other nonspecific skin eruption LAVERN AWAD [facility] Oct 11, 2024 12:14 PM SECONDARY Tinnitus, unspecified ear LAVERN AWAD [facility] Oct 11, 2024 12:14 PM SECONDARY Tobacco use LAVERN AWAD [facility] Oct 11, 2024 12:14 PM SECONDARY Transient cerebral ischemic attack, unspecified LAVERN AWAD [facility] Oct 11, 2024 12:14 PM SECONDARY Vitamin D deficiency, unspecified LAVERN AWAD Kathryn [facility] Lab Results: +/- 30 days of the [...] Result - Unit Interpretation Reference Range Comment Oct 16, 2024 09:03 AM [facility] URINE DRUG SCREEN (STL) Specimen Type: URINE Comment: The cut-off value for Fentanyl was laboratory developed and its performance characteristics confirmed by the [facility] laboratory thru method comparison with reference laboratory and medication chart review. The laboratory is regulated under CLIA as qualified to perform high-complexity testing. Fentanyl is used for clinical purposes in conjunction with other laboratory tests. Ordering Provider: LAVERN AWAD Report Released Date/Time: Oct 11, 2024 10:37 AM Reporting Lab: [facility] [address] [id number] Performing Lab: [facility] [address] [id number] ETHANOL 63 mg/dL H 0-9 AMPHET/METHAMPHE T AMINE Negative ng/mL COCAINE METABOLITES Negative ng/mL BENZODIAZEPINES (STL) Negative ng/mL CANNABINOIDS Negative ng/mL METHADONE Negative ng/mL OPIATES Negative ng/mL CREATININE URINE/OTHERS 71.9 mg/dL 63-166 OXYCODONE (MBDYW-IES-FA) Negative ng/mL BUPRENORPHINE (STL-PB-MA) Negative ng/mL FENTANYL (STL) Negative ng/mL Vital Signs: All taken on the encounter date This section contains inpatient and outpatient Vital Signs collected on the date of the Encounter. Date/Time Temperature Pulse Blood Pressure Respiratory Rate SP02 Pain Height Weight Body Mass Index Source Oct 11, 2024 10:15 AM 97.5 57 122/74 18 100 0 161.2 23 [facility] Social History: Smoking Status (Most current) and Tobacco Use (All prior to encounter date) This section includes the most current, and the historical, smoking and tobacco- related health factors from the [place] facility where the Encounter took place. Current Smoking Status This section includes the most current smoking, or tobacco-related health factor, from the [place] facility where the Encounter took place. Date/Time Current Smoking Status Comment Facil ity Oct 11, 2024 10:30 AM VA-TOBACCO NEVER U SED CIGARETTES [facility] Tobacco Use History This section includes a history of the smoking, or tobacco-related health factors, that were collected on or before the date of the Encounter. The data comes from the [place] facility where the Encounter took place. Date/Time Smoking Status/Tobacco Use Comment F acility Oct 11, 2024 10:30 AM PA-TOBACCO SCREEN FOLLOW-UP [facility] Oct 11, 2024 10:30 AM VA-TOBACCO USE ADVICE [facility] Oct 11, 2024 10:30 AM VA-TOBACCO USE GRANULAR OPERATOR NO [facility] Oct 11, 2024 10:30 AM VA-TOBACCO USE MED NO [facility] Oct 11, 2024 10:30 AM VA-TOBACCO USE JOANNE E DAYS CIGARS/PIPES [facility] Oct 11, 2024 10:30 AM VA-TOBACCO USE JOANNE E DAYS OTHER TYPE [facility] February 05, 2022 11:30 AM VA-TOBACCO USE 30 YEARS OR MORE [facility] February 05, 2022 11:30 AM VA-TOBACCO USE ADVICE [facility] February 05, 2022 11:30 AM VA-TOBACCO USE GRANULAR OPERATOR NO [facility] February 05, 2022 11:30 AM VA-TOBACCO USE MED NO [facility] February 05, 2022 11:30 AM VA-TOBACCO USE WI 30 MIN OF WAKEUP [facility] February 05, 2022 11:30 AM VA-TOBACCO USER EVERY DAY [facility] Apr 20, 2018 11:40 AM VA-TOBACCO USE 30 YEARS OR MORE [facility] Apr 20, 2018 11:40 AM VA-TOBACCO USE ADVICE [facility] Apr 20, 2018 11:40 AM VA-TOBACCO USE GRANULAR OPERATOR NO [facility] Apr 20, 2018 11:40 AM VA-TOBACCO USE MED NO [facility] Apr 20, 2018 11:40 AM VA-TOBACCO USE WI 30 MIN OF WAKEUP [facility] Apr 20, 2018 11:40 AM VA-TOBACCO USER EVERY DAY [facility] Mar 13, 2018 01:55 PM CURRENT TOBACCO USER [facility] Mar 13, 2018 01:55 PM CURRENT TOBACCO US ER (NOT READY TO QUIT) [facility] Mar 13, 2018 01:55 PM TOBACCO CESSATION REFERRAL DECLINED [facility] Mar 13, 2018 01:55 PM TOBACCO MEDS OFFER ED BUT DECLINED [facility] Mar 13, 2018 01:55 PM TOBACCO USER OFFERED MEDS [facility] Oct 10, 2017 12:55 PM CURRENT TOBACCO USER [facility] Oct 10, 2017 12:55 PM CURRENT TOBACCO US ER (NOT READY TO QUIT) [facility] Oct 10, 2017 12:55 PM TOBACCO CESSATION REFERRAL DECLINED [facility] Oct 10, 2017 12:55 PM TOBACCO MEDS OFFER ED BUT DECLINED [facility] Oct 10, 2017 12:55 PM TOBACCO USER OFFERED MEDS [facility] Mar 28, 2017 09:10 AM CURRENT TOBACCO USER [facility] Jun 18, 2015 09:04 AM CURRENT TOBACCO USER [facility] Jun 18, 2015 09:04 AM TOBACCO MEDS OFFER ED BUT DECLINED [facility] Jun 17, 2014 08:50 AM CURRENT TOBACCO USER [facility] Jun 17, 2014 08:50 AM TOBACCO MEDS OFFER ED BUT DECLINED [facility] May 02, 2013 02:15 PM CURRENT TOBACCO USER [facility] May 02, 2013 02:15 PM TOBACCO MEDS OFFER ED BUT DECLINED [facility] Apr 19, 2012 08:17 AM CURRENT TOBACCO USER [facility] Apr 19, 2012 08:17 AM TOBACCO MEDS OFFER ED BUT DECLINED [facility] February 09, 2011 07:45 AM CURRENT TOBACCO USER [facility] February 09, 2011 07:45 AM TOBACCO MEDS OFFER ED BUT DECLINED [facility] Advance Directives: All historical and current Section Date Range: From patient's date of to the date document was created. This section includes ALL of a patient's completed or amended [place] Advance and Rescinded Directives. The entries below indicate that a directive exists for the patient, but an actual copy is not included with this document. The data comes from all [place] facilities. Date Advance Directives Provider Source Mar 17, 2011 ADVANCE DIRECTIVE DISCUSSION JADE MARTINEZ [facility] Encounter Notes: All associated encounter notes This section contains the clinical notes associated to the Encounter. Date/Time Encounter Note(s) Provider Source Nov 26, 2024 03:27 PM ACCOUNTING OF DISC LOSURES NOTE: LOCAL TITLE: STATE PRESCRIPTION DRUG MONITORING PROGRAM STANDARD TITLE: ACCOUNTING OF DISCLOSURES NOTE DATE OF NOTE: NOV 26, 2024@15:27:42 ENTRY DATE: NOV 26, 2024@15:27:42 AUTHOR: LAVERN AWAD EXP COSIGNER: URGENCY: STATUS: COMPLETED This PDMP query was submitted by Lavern Awad WAREHOUSE ENGINEER. The clinical justification for this PDMP query is to review controlled substances prescribed outside of the VA, and any additional information that may become available, as an important component of standard clinical care, and in accordance with [facility] policy. Patient information was shared with the PDMP [place]. Prescription(s) filled outside the VA in the last 90 days are noted. However, they do not raise significant safety concerns and do not influence the treatment plan at this time. Discussed with historically regarding obtaining Lyrica from PCP 08/20/24. /lidia/ Lavern Awad DNP, APRN, INTENSIVE CARE AMBULANCE PARAMEDIC-C Primary Care Nurse Practitioner Signed: 11/26/2024 15:27 LAVERN AWAD [facility] Nov 26, 2024 03:27 PM PHARMACY NOTE: LOCAL TITLE: CONTROLLED SUBSTANCES PRESCRIBING STL STANDARD TITLE: PHARMACY NOTE DATE OF NOTE: NOV 26, 2024@15:27 ENTRY DATE: NOV 26, 2024@15:28:04 AUTHOR: LAVERN AWAD EXP COSIGNER: URGENCY: STATUS: COMPLETED Other Controlled Substances Prescription is for a non-opioid controlled substance. Per Directive and Policy, a PDMP is required for new starts and then at a minimum, annually for continued prescribing. Last available State PDMP: Prog Note DT Title Author Last Kehinde DT 11/26/2024 STATE PRESCRIPTION DRUG LAVERN AWAD MONITORING PROGRAM 10/16/2019 STATE PRESCRIPTION DRUG [place] MONITORING PROGRAM (SPDMP) Prog Note DT Title Author Last Kehinde DT 11/26/2024 STATE PRESCRIPTION DRUG LAVERN AWAD MONITORING PROGRAM Will check the State PDMP today. [SPDM] The clinical justification for this PDMP query is to review controlled substances prescribed outside of the VA, and any additional information that may become available, as an important component of standard clinical care, and in accordance with [facility] policy. *Date of Prescription Monitoring Program Query: Nov I reviewed patient's PDMP report for Schedule II, III, IV, or V medications from the following State PDMP [place] *Findings: Prescription(s) which have been filled outside the VA in the last 90 days are noted: Discussed with at last PCP appt. [END*] /lidia/ Lavern Awad DNP, APRN, INTENSIVE CARE AMBULANCE PARAMEDIC-C Primary Care Nurse Practitioner Signed: 11/26/2024 15:29 LAVERN AWADKathryn HER [facility] Oct 18, 2024 09:00 AM PHARMACY NOTE: LOCAL TITLE: CONTROLLED SUBSTANCES PRESCRIBING STL STANDARD TITLE: PHARMACY NOTE DATE OF NOTE: OCT 18, 2024@09:00 ENTRY DATE: OCT 18, 2024@09:00:09 AUTHOR: LAVERN AWAD EXP COSIGNER: URGENCY: STATUS: COMPLETED Opioid Prescription - Greater than 1 opioid prescription in past 90 days (i.e.,CHRONIC patients, multiple short-term prescriptions) A PDMP query, opioid risk review and evaluation of efficacy & safety for continued opioid use is required for renewals, refills or new scripts within 90 days. Please complete all sections and sign the note if the benefits outweigh the risk. Step 1: Review of the State Prescription Drug Monitoring Program: Prog Note DT Title Author Last Kehinde DT 10/18/2024 STATE PRESCRIPTION DRUG LAVERN AWAD MONITORING PROGRAM 10/16/2019 STATE PRESCRIPTION DRUG [place] MONITORING PROGRAM (SPDMP) Is the State Prescription Drug Monitoring Program Database Query current according to local [facility] policy? Yes Step 2: Opioid Risk Review *Has the patient's risk related to opioid use increased since the last prescription? No *Is the patient experiencing side effects with current opioid therapy? No *Is the patient adherent to the treatment plan? Yes *Are functional goals being met? Yes Urine drug screen completed and reviewed, when applicable VA/DoD CPG for LTOT for Chronic Pain STRONGLY recommends use of UDS as part of risk mitigation strategies upon initiation and with continuation of long-term opioid therapy; local [facility] policy require UDS to be done at a minimum of twice annually. (If available, aberrant findings should be documented with plan) Last urine drug screen: AMPHET/METHAMPHETAMINE Negative ng/mL 10/16/2024 09:03 AMPHET/METHAMPHETAMINE Negative ng/mL 04/09/2024 08:37 BENZODIAZEPINES (STL) Negative ng/mL 10/16/2024 09:03 BENZODIAZEPINES (STL) Negative ng/mL 04/09/2024 08:37 CANNABINOIDS Negative ng/mL 10/16/2024 09:03 CANNABINOIDS Negative ng/mL 04/09/2024 08:37 COCAINE METABOLITES Negative ng/mL 10/16/2024 09:03 COCAINE METABOLITES Negative ng/mL 04/09/2024 08:37 METHADONE Negative ng/mL 10/16/2024 09:03 METHADONE Negative ng/mL 04/09/2024 08:37 OPIATES Negative ng/mL 10/16/2024 09:03 OPIATES Negative ng/mL 04/09/2024 08:37 OXYCODONE (AOPAE-PVZ-GI) Negative ng/mL 10/16/2024 09:03 OXYCODONE (FGZRM-SUA-JM) Negative ng/mL 04/09/2024 08:37 BUPRENORPHINE (STL-PB-MA) Negative ng/mL 10/16/2024 09:03 BUPRENORPHINE (STL-PB-MA) Negative 04/09/2024 08:37 FENTANYL (STL) Negative ng/mL 10/16/2024 09:03 FENTANYL (STL) Negative ng/mL 04/09/2024 08:37 CREATININE URINE/OTHERS 71.9 mg/dL 10/16/2024 09:03 CREATININE URINE/OTHERS 98.8 mg/dL 04/09/2024 08:37 ETHANOL 63 H mg/dL 10/16/2024 09:03 ETHANOL 55-POS H mg/dL 04/09/2024 08:37 Yes Has the Consent for Long-Term Opioids been completed? Note, consent not required when treating cancer pain or for Hospice patients Yes VA/DoD CDC guidelines for opioid prescribing for chronic pain recommend f/u within 1-4 weeks for opioid dosage changes and =3 months for stable renewals, at a minimum, and more frequently if clinically indicated. RTC: Future Appointments: 04/19/2025 10:00 ROMAINE-ST CLR PACT 3 PCP 09/18/2025 10:30 RAFY-OPTOMETRY 3 Follow up appointment already scheduled. /lidia/ Lavern Awad DNP, PLY BANDER, INTENSIVE CARE AMBULANCE PARAMEDIC-C Primary Care Nurse Practitioner Signed: 10/18/2024 09:00 LAVERN AWAD [facility] Oct 18, 2024 08:59 AM ACCOUNTING OF DISC LOSURES NOTE: LOCAL TITLE: STATE PRESCRIPTION DRUG MONITORING PROGRAM STANDARD TITLE: ACCOUNTING OF DISCLOSURES NOTE DATE OF NOTE: OCT 18, 2024@08:59:55 ENTRY DATE: OCT 18, 2024@08:59:55 AUTHOR: LAVERN AWAD EXP COSIGNER: URGENCY: STATUS: COMPLETED This PDMP query was submitted by Lavern Awad WAREHOUSE ENGINEER. The clinical justification for this PDMP query is to review controlled substances prescribed outside of the [place], and any additional information that may become available, as an important component of standard clinical care, and in accordance with [facility] policy. Patient information was shared with the PDMP [place]. Prescription(s) filled outside the [place] in the last 90 days are noted. However, they do not raise significant safety concerns and do not influence the treatment plan at this time. This has been discussed with at last PCP visit. /lidia/ Lavern Awad DNP, PLY BANDER, INTENSIVE CARE AMBULANCE PARAMEDIC-C Primary Care Nurse Practitioner Signed: 10/18/2024 09:00 LAVERN AWAD [facility] Oct 11, 2024 10:18 AM NURSING NOTE: LOCAL TITLE: V15 PACT FACE TO FACE NOTE STL STANDARD TITLE: NURSING NOTE DATE OF NOTE: OCT 11, 2024@10:18 ENTRY DATE: OCT 11, 2024@10:19:03 AUTHOR: CHANELLE RAMOS EXP COSIGNER: URGENCY: STATUS: COMPLETED Provider Visit: Patient Identifiers : Full Name Date of Reason for visit: Established Follow-Up Mode of Arrival: Ambulatory Allergy Review: SERTRALINE Allergy list reviewed and remains current. Recent Vital Signs: Temperature: 97.5 F [36.4 C] (10/11/2024 10:15) Pulse: 57 (10/11/2024 10:15) Respiration: 18 (10/11/2024 10:15) B/P: 122/74 (10/11/2024 10:15) Pain: 0 (10/11/2024 10:15) Wt: 161.2 lb [73.12 kg] (10/11/2024 10:15) Ht: 70 in [177.8 cm] (01/15/2019 10:16) BMI: 23.2 POX: 100% (10/11/2024 10:15) Would you like to discuss any personal problem, family problem, alcohol use, drug use, or a mental or emotional illness? No My [facility] ([facility]), please select appointment type: Face to face: Yes- Done Contact provided Primary Care phone number and encouraged to call if any questions or concerns. Review that after hours nurse line [phone] and emergency room are available 25/04 for patient use. Contact verbalized good understanding. Suicide Screen - V: C-SSRS Screening Story-Suicide Severity Rating Scale (C-SSRS Screener) 1. Over the past month, have you wished you were or wished you could go to sleep and not wake up? No 2. Over the past month, have you had any actual thoughts of killing yourself? No 3. Over the past month, have you been thinking about how you might do this? Response not required due to responses to other questions. 4. Over the past month, have you had these thoughts and had some intention of acting on them? Response not required due to responses to other questions. 5. Over the past month, have you started to work out or worked out the details of how to kill yourself? Response not required due to responses to other questions. 6. If yes, at any time in the past month did you intend to carry out this plan? Response not required due to responses to other questions. 7. In your lifetime, have you ever done anything, started to do anything, or prepared to do anything to end your life (for example, collected pills, obtained a gun, gave away valuables, went to the roof but didn't jump)? No 8. If YES, was this within the past 3 months? Response not required due to responses to other questions. Alcohol Use Screen (AUDIT-C) - V: Alcohol Screen: SCREEN FOR ALCOHOL (AUDIT-C) An alcohol screening test (AUDIT-C) was negative (score=4). 1. How often did you have a drink containing alcohol in the past year? Consider a drink to be a 12 ounce can or bottle of regular beer, 8 ounces of malt liquor, a 5 ounce glass of table wine, or a 1.5 ounce shot of liquor (like scotch, gin, or vodka). Four or more times a week 2. How many drinks containing alcohol did you have on a typical day when you were drinking in the past year? One or two drinks 3. How often did you have six or more drinks on one occasion in the past year? Never Depression Screening - V: Perform PHQ-2 A PHQ-2 screen was performed. The score was 2 which is a negative screen for depression. Over the past two weeks, how often have you been bothered by the following problems? 1. Little interest or pleasure in doing things Several days 2. Feeling down, depressed, or hopeless Several days Homelessness/Food Insecurity Screen - DI,L,N,P,PH,PS,S,U: In the past 2 months, have you been living in stable housing that you own, rent, or stay in as part of a household? Yes - Living in stable housing. Are you worried or concerned that in the next 2 months you may NOT have stable housing that you own, rent, or stay in as part of a household? No - Not worried about housing near future The reports the following: Within the past 12 months, you worried whether your food would run out before you got money to buy more. Never true Within the past 12 months, the food you bought just didn't last and you didn't have money to get more. Never true Tobacco Use Screening - AT,DE,L,M,N,P,PH,PS,RT,S,U: The patient has never smoked cigarettes. The patient uses other type(s) of tobacco some days. Other Tobacco Type(s) used: Cigars/pipes/small cigars Frail/Elderly Screen: ADL Screen - [place] Index of [place] in Activities of Daily Living Bathing: (3 Points) Receives no assistance (gets in and out of tub by self, if tub is usual means of bathing) Dressing: (3 Points) Gets clothes and gets completely dressed without assistance. Toileting: (3 Points) Goes to toilet room , cleans self, and arranges clothes without assistance (may use object for support such as cane, walker, or wheelchair, and may manage own night bedpan or commode, emptying same next morning) Transferring: (3 Points) Moves in and out of bed and in and out of chair without assistance (may be using object for support, such as cane or walker) Continence: (3 Points) Controls urination and bowel movement completely by self Feeding: (3 Points) Feeds self without assistance Total Score: 18 Points 18 = High (patient independent) 6 = Low (patient very dependent) IADL Screen - [place] Instrumental Activities of Daily Living Scale Ability to use telephone: (1 point) Operates Telephone on own initiative; looks up and dials numbers. Shopping: (1 point) Takes care of all shopping needs independently. Food preparation: (1 point) Plans, prepares, and serves adequate meals independently. Housekeeping: (1 point) Maintains house alone with occasional assistance (heavy work). Laundry: (1 point) Does personal laundry completely. Mode of transportation: (1 point) Travels independently on public transportation or drives own car. Responsibility for own medications: (1 point) Is responsible for taking medications in correct dosages at correct times. Ability to handle finances: (1 point) Manages financial matters independently (budgets, writes checks, pays rent and bills, goes to bank); collects and keeps track of income. Total score: 8 points 8 = High function, independent 0 = Low function, dependent Falls Screen: One fall with no injury within the last 12 months. /lidia/ CHANELLE RAMOS LPN LICENSED PRACITCAL NURSE Signed: 10/11/2024 10:24 CHANELLE RAMOS [facility] Oct 11, 2024 09:56 AM PRIMARY CARE NOTE: LOCAL TITLE: PRIMARY CARE PROVIDER ESTABLISHED VISIT [facility] STANDARD TITLE: PRIMARY CARE NOTE DATE OF NOTE: OCT 11, 2024@09:56 ENTRY DATE: OCT 11, 2024@09:57:01 AUTHOR: LAVERN AWADER: URGENCY: STATUS: COMPLETED REASON FOR VISIT/CHIEF COMPLAINT: Evaluation and management of chronic medical conditions/ My scheduled visit HPI: Patient is a 74 year old WHITE MALE who presents to the clinic for evaluation and management of chronic medical conditions. Patient denies any recent ED visits or hospitalizations. Patient goes by Will. Private providers: -Patient prefers for private PCP to manage his primary care, reports obtains certain medications at the PA due to cost. -Private PCP Dr. Cassandra Delgado. -Private neurology Dr. Juanito Galvez. #HLD: -Medication: Atorvastatin and FENOFIBRATE. -Reports compliance with medication regimen. -Denies any new onset of myalgias. #Prediabetes: -Denies concerns today. #Peripheral neuropathy: -Medication: Lyrica. -Reports medication compliance. - had a 30 day supply of Lyrica picked up at [facility] pharmacy in [place] 08/23/24 (this was ordered per private PCP Dr. Cassandra Delgado with 5 refills given). had 30 day supply of Lyrica mailed to by the PA 08/23/24. is not due for a dose refill until 10/23/24 given this. #ED: -Stable, denies concerns at this time. -Medications: SILDENAFIL CITRATE. #Vitamin D deficiency: -Reports compliance with supplementation. #B12 Deficiency: -Reports compliance with supplementation. #Gout: -Medication: Allopurinol. -Reports compliance with medication regimen. -Denies any recent gout attacks. #PTSD: -Stable per patient. -Denies SI/HI. #Tobacco use: -Current use: Smokes a pipe since age 14. Denies cigarette usage. #Hx TIA: -Occurred in 2021 in the private sector. Patient was [facility] by [facility]. Occurred again 09/17/24. -Medication: Clopidogrel. -Patient reports he is managed per private neurologist for this. 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 - has lesion located to right lower leg, is approx. the size of a quarter. Patient reports his PCP is aware. Patient reports he had this since 2019. #Tinnitus: -Chronic, stable. SOURCE(S) OF HISTORY: Patient PAST MEDICAL HISTORY: 1) Peripheral neuropathy (SNOMED CT [id number]) 2) Decreased vitamin B12 level (SNOMED CT 726173629) 3) Vitamin D deficiency (SNOMED CT 72274411) 4) Erectile dysfunction (SNOMED CT 126125993) 5) Hyperlipidemia 6) Gout 7) Posttraumatic stress disorder 8) Tobacco use 9) Transient cerebral ischemia 10) Tinnitus 11) Skin eruption SOCIAL HISTORY: Tobacco: See above. Alcohol: 1-2 drinks daily. Illicit: Denies. -Patient lives with , reports being for >50 years. -Patient goes to [place] every July with his . ALLERGIES: SERTRALINE ALLERGY REVIEW: Allergy list reviewed and remains current. MEDICATIONS: Active and Recently Outpatient Medications (excluding Supplies): Active Outpatient Medications Status 1) SILDENAFIL CITRATE 100MG TAB TAKE ONE TABLET BY MOUTH EVERY ACTIVE WEEK NEEDED FOR ERECTILE DYSFUNCTION (TAKE 60 MINUTES PRIOR TO SEXUAL ACTIVITY) - LIMIT 6 DOSES PER 30 DAYS Active Non-VA Medications Status 1) Non-VA ALLOPURINOL 100MG TAB 100MG BY MOUTH ONCE A DAY ACTIVE 2) Non-VA ATORVASTATIN CALCIUM 20MG TAB 10MG BY MOUTH EVERY ACTIVE EVENING 3) Non-VA CHOLECALCIF 50MCG (D3-2,000UNIT) TAB 4000UNIT BY ACTIVE MOUTH ONCE A DAY 4) Non-VA CYANOCOBALAMIN 500MCG TAB 500MCG BY MOUTH ONCE A DAY ACTIVE 5) Non-VA FENOFIBRATE 48MG TAB 48MG BY MOUTH ONCE A DAY ACTIVE 6) Non-VA GARLIC OIL EC TAB 1 TABLET BY MOUTH ACTIVE 7) Non-VA PREGABALIN 150MG ORAL CAP 150MG BY MOUTH THREE TIMES ACTIVE A DAY Indication: FOR NERVE PAIN 8) Non-VA PREGABALIN 150MG ORAL CAP 150MG BY MOUTH TWICE A DAY ACTIVE Indication: FOR NERVE PAIN 9 Total Medications REVIEW OF SYSTEMS: Constitutional: Denies weight loss, fever, chills. Ears, Nose, Mouth, Throat: Denies nasal drainage or sore throat. Denies dizziness. Endocrinology: Denies heat or cold intolerance, polydipsia, polyuria, or polyphagia. Cardiovascular: Denies chest pain, palpitations, or dizziness. Respiratory: Denies cough or shortness of breath. ABD/GI: Denies abdominal pain, nausea, vomiting, constipation, diarrhea or incontinence. Musculoskeletal/Extremities : Denies edema. Denies pain. /PROPERTY MANAGEMENT INTERN: Denies frequency, hesitancy, urgency, or hematuria. Psychology: Denies insomnia or SI/HI. Denies anxiety or depression. Neurology: Denies ALEXANDER, tremors, neuropathy, or seizures. Skin: Denies rashes, skin lesions. PHYSICAL EXAMINATION: VITALS (most recent, as listed in the electronic record): Temperature: 97.5 F [36.4 C] (10/11/2024 10:15) BP: 122/74 (10/11/2024 10:15) Pulse: 57 (10/11/2024 10:15) Resp: 18 (10/11/2024 10:15) PulsOx: 100% (10/11/2024 10:15) Pain: 0 (10/11/2024 10:15) Weight: Measurement DT WEIGHT LB(KG)[BMI] 10/11/2024 10:15 161.2(73.12)[23] 03/30/2024 09:14 160.1(72.62)[23] HEENT: EOMI, PERRLA, Moist mucous membranes. No [...] Info COVID-19 (MODERNA), MRNA, LNP-S,* 3 02/05/2022 [facility]* <C> COVID-19 (MODERNA), MRNA, LNP-S,* 1 09/30/2023 [facility]* COVID-19 (PFIZER), MRNA, LNP-S, * 3 07/17/2021 [facility]* <C> COVID-19 (PFIZER), MRNA, LNP-S, * 2 11/22/2020 [facility]* <C> COVID-19 (PFIZER), MRNA, LNP-S, * 1 11/01/2020 [facility]* <C> COVID-19 (PFIZER), MRNA, LNP-S, * 5 07/11/2024 [facility] INFLUENZA, HIGH-DOSE, TRIVALENT,* 1 07/11/2024 [facility] PNEUMOCOCCAL CONJUGATE PCV 13 08/18/2015 [facility]* PNEUMOCOCCAL POLYSACCHARIDE PPV23 2 07/12/2022 [facility] PNEUMOCOCCAL POLYSACCHARIDE PPV23 1 07/15/2021 [facility] PNEUMOCOCCAL POLYSACCHARIDE PPV23 03/03/2016 [facility]* TD (ADULT), 2 LF TETANUS TOXOID,* 1 05/04/2018 [facility] TDAP 05/04/2018 No Site <C> TDAP 07/08/2008 [place] ZOSTER LIVE 11/10/2011 [facility] ZOSTER RECOMBINANT 2 11/23/2021 [facility] ZOSTER RECOMBINANT 1 07/15/2021 [facility] Shingles recombinant: Reports having two dose series at [facility] in approx. 2020. Colonoscopy: Aged out per patient. Reports last completed in approx. 2019. Patient states this was negative. PSA: Obtains labs in the private sector. LDCT: Does not qualify. AAA screening: Does not qualify. Eye exam: Evaluation and management per [facility] optometry. Labs ordered: Methadone panel (reviewed with this is required prior to next refill if would like to obtain Lyrica at the [facility]). Obtains labs in the private sector. ASSESSMENT/PLAN: HLD: -Continue medication regimen. -Reviewed lifestyle modifications including participating in a low fat/low cholesterol diet. -Dietitian contact information given. -Evaluation and management per private PCP. Prediabetes: -Reviewed lifestyle modifications. -Dietitian contact information given. -Evaluation and management per private PCP. Peripheral neuropathy: -Continue medication regimen. -Methadone panel ordered. -[employer] to notify clinic if would like to pursue prescription of Ly[facility] from the [facility] versus the private sector once his refill is due 10/23/24. Reviewed with that it is the [facility] policy to only obtain Lyrica from one source. Reviewed with if would like to obtain through the [facility] to request this 7 days before it is due to ensure this is mailed to the in time. [employer] verbalized understanding. -Evaluation and management per private PCP. ED: [...] -Reviewed lifestyle modifications. - crisis line and whole health contact information given. -Patient declines [facility] psychology consult. -Evaluation and management per private PCP. Tobacco use: -LDCT: Does not qualify, smoked a pipe. -Pt aware of risks of tobacco which includes developing cancer, emphysema and premature cardiovascular disease. -Evaluation and management per private PCP. Hx TIA: -Continue medication regimen. -Lifestyle modifications reviewed. -Evaluation and management per private neurologist. -Evaluation and management per private PCP. Hx BBC/Lesion: -Patient declines further evaluation and/or management today. -Patient declines [facility] dermatology consult. -Evaluation and management per private PCP. Tinnitus: -Audiology contact information given. -Educated to avoid loud noises, avoid cotton swabs and to keep ears dry. -Evaluation and management per private PCP. RETURN TO CLINIC: 6 months or earlier as needed. SUMMARY STATEMENT: Plan of care has been discussed with including expected therapeutic benefits and potential side effects of prescribed medication and treatments. verbalizes understanding and is in agreement with the plan of care. Patient was instructed to keep all scheduled appointments and contact enterprise account manager for any additional problems. Medication Reconciliation Opt [...] 90 days.) with the patient and/or his/her care-content specialist. Handwritten corrections, additions and/or deletions were made to the list, as appropriate. Corrected Outpatient Medication List was provided to the patient/caregiver. Sexual Orientation - CP,L,N,P,PH,PS,S,U: The patient thinks of their sexual orientation as: Straight or Heterosexual Tobacco Use Follow-Up - - AT,DE,M,N,P,PH,PS,RT,S: Patient was advised to stop smoking and/or using other tobacco products. Advised patient that a combination of behavioral counseling and FDA-approved cessation medications is the most effective way to ensure their success in stopping to smoke and/or using other tobacco products. The patient was not interested in additional information about behavioral counseling and other support strategies discussed. Informed patient that medications can help with cravings and withdrawal symptoms, and they greatly increase the chances of successfully stopping your tobacco use. The patient was not interested in a prescription for tobacco cessation medications. Frail/Elderly Screen: ADL Screen - Canas Index of Tiona in Activities of Daily Living Bathing: (3 Points) Receives no assistance (gets in and out of tub by self, if tub is usual means of bathing) Dressing: (3 Points) Gets clothes and gets completely dressed without assistance. Toileting: (3 Points) Goes to toilet room , cleans self, and arranges clothes without assistance (may use object for support such as cane, walker, or wheelchair, and may manage own night bedpan or commode, emptying same next morning) Transferring: (3 Points) Moves in and out of bed and in and out of chair without assistance (may be using object for support, such as cane or walker) Continence: (3 Points) Controls urination and bowel movement completely by self Feeding: (3 Points) Feeds self without assistance Total Score: 18 Points 18 = High (patient independent) 6 = Low (patient very dependent) IADL Screen - Nora Instrumental Activities of Daily Living Scale Ability to use telephone: (1 point) Operates Telephone on own initiative; looks up and dials numbers. Shopping: (1 point) Takes care of all shopping needs independently. Food preparation: (1 point) Plans, prepares, and serves adequate meals independently. Housekeeping: (1 point) Maintains house alone with occasional assistance (heavy work). Laundry: (1 point) Does personal laundry completely. Mode of transportation: (1 point) Travels independently on public transportation or drives own car. Responsibility for own medications: (1 point) Is responsible for taking medications in correct dosages at correct times. Ability to handle finances: (1 point) Manages financial matters independently (budgets, writes checks, pays rent and bills, goes to bank); collects and keeps track of income. Total score: 8 points 8 = High function, independent 0 = Low function, dependent Falls Screen: One fall with no injury within the last 12 months. Incontinence Screen: No incontinence. /lidia/ Lavern Awad DNP, PLY BANDER, INTENSIVE CARE AMBULANCE PARAMEDIC-C Primary Care Nurse Practitioner Signed: 10/11/2024 12:14 LAVERN AWAD [facility]
--- OUTSIDE RECORDS SUMMARY | 2024-12-20 14:29 | XMS_ITS | Referral Summary ---
Author Organization [facility] Address [address] [place] [address] Care Team Providers Care Bead Builder Name Role Phone Cassandra Mathis DO Primary Care Provider [phone] Allergies No known active allergies Medications allopurinoL [...] (07/21/2021): Added automatically from request for surgery [id number] Immunizations Immunization Administration Dates Next Due LUBB-TEX SARS-CoV-2 Monovalent Vaccination (12+ Yrs) PURPLE 07/17/2021,11/22/2020,11/01/2020 [...] Comments Blood Pressure 108/58 08/20/2021 8:35 AM CONCRETE BUSTER OPERATOR Pulse 74 08/20/2021 8:35 AM CONCRETE BUSTER OPERATOR Temperature 36.7 C (98 F) 08/20/2021 8:35 AM CONCRETE BUSTER OPERATOR Respiratory Rate 18 08/20/2021 8:35 AM CONCRETE BUSTER OPERATOR Oxygen Saturation 98% 08/20/2021 8:35 AM CONCRETE BUSTER OPERATOR Inhaled Oxygen Concentration - - Weight 76.9 kg (169 lb 8 oz) 08/19/2021 5:55 AM CONCRETE BUSTER OPERATOR Height 177.8 cm (5' 10 ) 08/19/2021 5:55 AM CONCRETE BUSTER OPERATOR Body Mass Index 24.32 08/19/2021 5:55 AM CONCRETE BUSTER OPERATOR Plan of Treatment Not on file Medical Devices Implanted Type Area Lithographic Press Operator Device Identifier Shelf Expiration Date Model / Serial / Lot Tornier Inc [id number] Tornier Aequalis Perform 15mm Press Fit Long Post Shoulder - [id number] - [id number] Implanted:Qty : 1 on 08/19/2021 by Mina Washington MD at [facility] Other - see comments Right: Shoulder [employer] [id number] 04/22/2026 [id number] / [id number] / Tornier Inc [id number] Tornier Aequalis Perform 25mm Lateralize Augment Reverse Shoulder - [id number] - [id number] Implanted:Qty : 1 on 08/19/2021 by Mina Washington MD at [facility] Other - see comments Right: Shoulder [employer] [id number] 06/15/2026 [id number] / [id number] / T[employer]ier Inc [id number] Tornier Aequalis Perform 39mm Reverse Shoulder Standard Sphere - [id number] - [id number] Implanted:Qty : 1 on 08/19/2021 by Mina Washington MD at [facility] Other - see comments Right: Shoulder [employer] [id number] 06/22/2026 [id number] / [id number] / Son[employer] [id number] Insert Perform 10 Deg [id number] - [id number] - [id number] Implanted:Qty : 1 on 08/19/2021 by Mina Washington MD at [facility] Other - see comments Right: Shoulder [employer] Inc [id number] 01/14/2026 [id number] / [id number] / Sonics [employer] [id number] Stem Perform Sz 3 Humeral - Sna - [id number] Implanted:Qty : 1 on 08/19/2021 by Mina Washington MD at [facility] Other - see comments Right: Shoulder [employer] [id number] / NA / Tornier Inc [id number] Aequalis Perform Reversed 5mm 34mm Peripheral Glenoid Screw - [id number] Implanted:Qty : 2 on 08/19/2021 by Mina Washington MD at [facility] Screw Right: Shoulder [employer] [id number] / / Insurance [facility] MDCR HMO REF [facility] MEDICARE [place] [facility] [place]ICARE [place] [facility] ADVANTRA Advance Directives For more information, please contact: [phone] * Full Code (Latest Code Status on File) Date Activated Date Inactivated Comments 08/19/2021 11:07 AM 08/20/2021 3:42 PM Care Teams Bead Builder Relationship Specialty Start Date End Date Cassandra Mathis DO PCP - General Family Medicine 02/10/21
--- OUTSIDE RECORDS SUMMARY | 2024-12-20 14:29 | XMS_ITS | Clinical Summary ---
Author Organization [facility] Address [address] [place] [address] Phone Care Team Providers Care Home Advisor Name Role Phone Unavailable Primary Care Provider Unavailabl e Allergies Active Allergy Reactions Criticality Noted Date Comments Sertraline Diarrhea Low 02/23/2016 Medications aspirin (ECOTRIN EC) 81 mg Tablet, Delayed Release (E.C.) Take 1 Tablet by mouth daily. 08/22/2024 Active atorvastatin (LIPITOR) 40 mg tablet take 1 tablet by mouth every day at bedtime 08/23/2024 Active cholecalciferol , Vitamin D3, (VITAMIN D3) 25 mcg (1,000 [...] Encounters Date Type Department Care Team Description 12/19/2024 External Device Data [facility] ABSTRACTION Provider, Abstract 12/10/2024 External Device Data [facility] ABSTRACTION Provider, Abstract 11/27/2024 External Device Data [facility] ABSTRACTION Provider, Abstract 10/25/2024 External Device Data [facility] ABSTRACTION Provider, Abstract 10/24/2024 External Device Data [facility] ABSTRACTION Provider, Abstract 10/23/2024 External Device Data [facility] ABSTRACTION Provider, Abstract 10/16/2024 External Device Data [facility] ABSTRACTION Provider, Abstract from Last 3 Months Family History Relation [...] at Not on file Legal Sex Male 2:22 PM ENERGY AND SUSTAINABILITY MANAGER Gender Identity Not on file Sexual Orientation Not on file Last Filed Vital Signs Vital Sign Reading Time Taken Comments Blood Pressure 109/70 09/06/2024 9:25 AM ENERGY AND SUSTAINABILITY MANAGER Pulse 60 09/06/2024 9:25 AM ENERGY AND SUSTAINABILITY MANAGER Temperature 36.7 C (98 F) 09/06/2024 9:25 AM ENERGY AND SUSTAINABILITY MANAGER Respiratory Rate 16 09/06/2024 9:25 AM ENERGY AND SUSTAINABILITY MANAGER Oxygen Saturation 99% 09/06/2024 9:25 AM ENERGY AND SUSTAINABILITY MANAGER Inhaled Oxygen Concentration - - Weight 74.4 kg (164 lb) 09/06/2024 9:25 AM ENERGY AND SUSTAINABILITY MANAGER Height 177.8 cm (5' 10 ) 09/06/2024 9:25 AM ENERGY AND SUSTAINABILITY MANAGER Body Mass Index 23.53 09/06/2024 9:25 AM ENERGY AND SUSTAINABILITY MANAGER Plan of Treatment Health Maintenance Due Date Last Done Comments ZOSTER VACCINE (2 of 3) 01/05/2012 11/10/2011 RSV VACCINE (60+ or ) (1 - 1-dose 75+ series) 2023 INFLUENZA VACCINE (#1) 2024 , 07/02/2019, 06/23/2018 COVID-19 Vaccine (2023-2 5 season) 2024 09/30/2023, 02/05/2022, 07/17/2021, Additional history exists [place] Ad[place] ([place]) Preventative Visit/Annual Wellness Visit 10/03/2024 DTAP/TDAP/TD VACCINES (3 - T d or Tdap) 05/04/2028 05/04/2018, 07/08/2008 PNEUMOCOCCAL VACCINE 50+ YEARS Completed 03/03/2016 , 08/18/2015 Insurance AETNA [facility]
--- OUTSIDE RECORDS SUMMARY | 2024-12-20 14:29 | XMS_ITS | Clinical Summary ---
Author Organization [facility] Address [address] [place] [address] Care Team Providers Care Filteration Operator Name Role Phone Casasndra Mathis DO Primary Care Provider [phone]- [phone] Allergies No known active allergies Medications allopurinoL [...] (07/21/2021): Added automatically from request for surgery [id number] Immunizations Immunization Administration Dates Next Due [employer] SARS-CoV-2 Monovalent Vaccination (12+ Yrs) PURPLE 07/17/2021,11/22/2020,11/01/2020 [...] Comments Blood Pressure 108/58 08/20/2021 8:35 AM RACKET STRINGER Pulse 74 08/20/2021 8:35 AM RACKET STRINGER Temperature 36.7 C (98 F) 08/20/2021 8:35 AM RACKET STRINGER Respiratory Rate 18 08/20/2021 8:35 AM RACKET STRINGER Oxygen Saturation 98% 08/20/2021 8:35 AM RACKET STRINGER Inhaled Oxygen Concentration - - Weight 76.9 kg (169 lb 8 oz) 08/19/2021 5:55 AM RACKET STRINGER Height 177.8 cm (5' 10 ) 08/19/2021 5:55 AM RACKET STRINGER Body Mass Index 24.32 08/19/2021 5:55 AM RACKET STRINGER Plan of Treatment Health Maintenance Due Date Last Done Comments Hepatitis C Screening 1950 Hepatitis B Screening 1966 Zoster Vaccine (2 of 3) 01/05/2012 11/10/2011 Abdominal Aortic Aneurysm (A AA) Screen 2013 Well Visit 65+ 2013 Depression Screening 07/21/2022 07/21/2021, 07/21/20 21 Fall Risk Assessment 08/20/2022 08/20/2021 Covid-19 Vaccine (2023-2 5 season) 2024 02/05/2022, 07/17/2021, 11/22/2020, Additional history exists Influenza Vaccine (#1) 2024 , 06/03/2020, 06/03/2020, Additional history exists DTaP/Tdap/Td Vaccine (4 - Td or Tdap) 05/04/2028 05/04/2018, 05/04/2018, 07/08/2008 Pneumococcal vaccine 65+ Completed 03/03/2016, 08/03 Medical Devices Implanted Type Area Field Captain Device Identifier Shelf Expiration Date Model / Serial / Lot [employer] Oed752 Tornier Aequalis Perform 15mm Press Fit Long Post Shoulder - [id number] - [id number] Implanted:Qty : 1 on 08/19/2021 by Mina Washington MD at [facility] Other - see comments Right: Shoulder [employer] [id number] 04/22/2026 [id number] / [id number] / Tornier Inc [id number] Tornier Aequalis Perform 25mm Lateralize Augment Reverse Shoulder - [id number] - [id number] Implanted:Qty : 1 on 08/19/2021 by Mina Washington MD at [facility] Other - see comments Right: Shoulder [employer] [id number] 06/15/2026 [id number] / [id number] / Tornier Inc [id number] Tornier Aequalis Perform 39mm Reverse Shoulder Standard Sphere - [id number] - [id number] Implanted:Qty : 1 on 08/19/2021 by Mina Washington MD at [facility] Other - see comments Right: Shoulder [employer] [id number] 06/22/2026 [id number] / [id number] / [employer] [id number] Insert Perform 10 Deg [id number] - [id number] - [id number] Implanted:Qty : 1 on 08/19/2021 by Mina Washington MD at [facility] Other - see comments Right: Shoulder [employer] [id number] 01/14/2026 [id number] / [id number] / [employer] Dwx3ss Stem Perform Sz 3 Humeral - Sna - [id number] Implanted:Qty : 1 on 08/19/2021 by Mina Washington MD at [facility] Other - see comments Right: Shoulder [employer] DWX3SS / NA / Tornier Inc [id number] Aequalis Perform Reversed 5mm 34mm Peripheral Glenoid Screw - [id number] Implanted:Qty : 2 on 08/19/2021 by Mina Washington MD at [facility] Screw Right: Shoulder [employer] [id number] / / Insurance [facility] MDCR HMO REF [facility] MEDICARE OOS Member Subscriber Plan / Payer (Ef fective 2021-Present) Name:Chung Mueller Relation to Subscriber:Self Name:Chung Mueller Payer ID:[id number] (NAIC) Type:MEDICARE RISK OTHER Address: [address] MEDICARE [place] [facility] [place]ARE [place] [facility] ADVANTRA Advance Directives For more information, please contact: [phone] * Full Code (Latest Code Status on File) Date Activated Date Inactivated Comments 08/19/2021 11:07 AM 08/20/2021 3:42 PM Care Teams Filteration Operator Relationship Specialty Start Date End Date Cassandra Mathis DO PCP - General Family Medicine 02/10/21
--- OUTSIDE RECORDS SUMMARY | 2024-12-20 14:29 | XMS_ITS | Continuity of Care Document ---
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 It does not include entries that were removed or entered in error. Problem Status Onset Date Problem Type Date of Resolution Comments Source Transient cerebral ischemia Active 2 Condition [facility] Decreased vitamin B12 level (SNOMED CT 975994055) Active Condition [facility] Erectile dysfunction (SNOMED CT 423075602) Active Condition [facility] Gout Active Condition [facility] Hyperlipidemia Active Condition [facility] Peripheral neuropathy (SNOMED CT 219585569) Active Condition February 09, 2011 Entered By: JADE MARTINEZ A Comment: diagnosed about 3 years ago [facility] Posttraumatic stress disorder Active Condition [facility] Prediabetes Active Condition [facility] Skin eruption Active Condition [facility] Tinnitus Active Condition [facility] Tobacco use Active Condition [facility] Vitamin D deficiency (SNOMED CT 16419404) Active Condition [facility] Chronic low back pain (SNOMED CT 136308202) Inactive Condition 09/30/2023 Nov 14, 2013 Entered By: JADE MARTINEZ A Comment: on SS disability [facility] Depression Inactive Condition 09/30/2023 [facility] Neck Pain Inactive Condition 09/30/2023 [facility] Persistent alcohol abuse (SNOMED CT 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 Medications Combined list of outpatient medications [...] DAY ORAL ACTIVE AWAD,SHE LBY R 2024 [facility] ASPIRIN 81MG TAB,EC TAKE ONE TABLET BY MOUTH ONCE A DAY ORAL ACTIVE RITESH,SHE LBY R 2024 [facility] ATORVASTATI N CA 80MG TAB TAKE ONE-HALF TABLET BY MOUTH EVERY EVENING ORAL ACTIVE AWAD,SHE LBY R 2024 [facility] CHOLECALCIF LASHAWN 50MCG (2,000UNIT) TAB TAKE TWO TABLETS BY MOUTH ONCE A DAY ORAL ACTIVE EZEKIEL MARTINEZ 2010 [facility] CLOPIDOGREL BISULFATE 75MG TAB TAKE ONE TABLET BY MOUTH ONCE A DAY ORAL ACTIVE AWAD,SHE LBY R 2024 [facility] CYANOCOBALA MIN 1000MCG TAB TAKE ONE TABLET BY MOUTH ONCE A DAY ORAL ACTIVE AWAD,SHE LBY R 2024 [facility] DICLOFENAC NA 75MG TAB,EC TAKE ONE TABLET BY MOUTH EVERY MORNING AND EVENING ORAL ACTIVE AWAD,SHE LBY R 2024 [facility] FENOFIBRATE TAB TAKE 54 MG BY MOUTH ONCE A DAY ORAL ACTIVE AWAD,SHE LBY R 2024 [facility] GARLIC OIL TAB,EC TAKE ONE TABLET BY MOUTH ORAL ACTIVE AWAD,SHE LBY R 2022 [facility] PREGABALIN 150MG CAP,ORAL TAKE ONE CAPSULE BY MOUTH THREE TIMES A DAY FOR NEUROPAT HIC PAIN. *MAY CAUSE DROWSINE SS* ORAL ACTIVE 12/26/2024 [id number] AWAD,SHE MCKENZIEY R 2024 90 [facility] PREGABALIN 150MG CAP,ORAL TAKE ONE CAPSULE BY MOUTH THREE TIMES A DAY FOR NEUROPAT HIC PAIN. *MAY CAUSE DROWSINE SS* ORAL DISCONT INUED 11/17/2024 [id number] KELY AWAD R 2024 90 [facility] PREGABALIN 150MG CAP,ORAL TAKE ONE CAPSULE BY MOUTH THREE TIMES A DAY FOR NEUROPAT HIC PAIN. *MAY CAUSE DROWSINE SS* ORAL DISCONT INUED BY PROVIDE R 09/20/2024 [id number] 4 KELY AWAD R 2023 90 [facility] PREGABALIN 150MG CAP,ORAL TAKE ONE CAPSULE BY MOUTH THREE TIMES A DAY FOR NEUROPAT HIC PAIN. *MAY CAUSE DROWSINE SS* ORAL DISCONT INUED 07/25/2024 [id number] 4 RICKHayden UASH 2023 90 [facility] PREGABALIN 150MG CAP,ORAL TAKE ONE CAPSULE BY MOUTH THREE TIMES A DAY FOR NEUROPAT HIC PAIN. *MAY CAUSE DROWSINE SS* ORAL DISCONT INUED 06/13/2024 [id number] 4 KELY AWAD R 2023 90 [facility] PREGABALIN 150MG CAP,ORAL TAKE ONE CAPSULE BY MOUTH THREE TIMES A DAY FOR NEUROPAT HIC PAIN. *MAY CAUSE DROWSINE SS* ORAL DISCONT INUED 05/09/2024 [id number] 4 KELY AWAD R 2023 90 [facility] PREGABALIN 150MG CAP,ORAL TAKE ONE CAPSULE BY MOUTH THREE TIMES A DAY FOR NEUROPAT HIC PAIN. *MAY CAUSE DROWSINE SS* ORAL DISCONT INUED 01/21/2024 [id number] 4 KELY AWAD R 2023 90 [facility] PREGABALIN 150MG CAP,ORAL TAKE ONE CAPSULE BY MOUTH THREE TIMES A DAY FOR NEUROPAT HIC PAIN. *MAY CAUSE DROWSINE SS* ORAL DISCONT INUED 12/16/2023 [id number] 4 KELY AWAD R 2023 90 [facility] PREGABALIN 150MG CAP,ORAL TAKE ONE CAPSULE BY MOUTH THREE TIMES A DAY FOR NEUROPAT HIC PAIN. *MAY CAUSE DROWSINE SS* ORAL DISCONT INUED 11/03/2023 [id number] 4 KELY AWAD R 2023 90 [facility] SILDENAFIL CITRATE 100MG TAB TAKE ONE TABLET BY MOUTH EVERY WEEK NEEDED FOR ERECTILE DYSFUNCT ION (TAKE 60 MINUTES PRIOR TO SEXUAL ACTIVITY ) - LIMIT 6 DOSES PER 30 DAYS ORAL ACTIVE 03/31/2025 [id number] 4 KELY AWAD R 2023 18 [facility] SILDENAFIL CITRATE 100MG TAB TAKE ONE TABLET BY MOUTH EVERY WEEK NEEDED FOR ERECTILE DYSFUNCT ION (TAKE 60 MINUTES PRIOR TO SEXUAL ACTIVITY ) - LIMIT 6 DOSES PER 30 DAYS ORAL DISCONT INUED 04/06/2024 [id number] 3 KELY AWAD R 2022 18 [facility] Allergies, Adverse Reactions, Alerts Combined list of allergies from Department of Defense and Veterans Affairs facilities. It does not include entries that were removed or entered in error. Substance Category Reaction Severity Reaction type Status Date Reported Comments Source SERTRALINE Propensity to adverse reactions to drug (finding) Diarrhea active 6 [facility] Immunizations Combined list of available immunizations from the Department of Defense and Veterans Affairs facilities. Immunization Series Date Given Administered By Site Reaction Lot Number CVX Code Drug Clinical Manager Home Care Status Comments Source COVID-19 (PFIZER), MRNA, LNP-S, PF, ASHANTI-SUCROSE, 30 MCG/0.3 ML (AGES 12+ YEARS) 5 2023 309 complet ed [facility] N INFLUENZA, HIGH-DOSE, TRIVALENT, PF 1 2023 135 complet ed [facility] N COVID-19 (MODERNA), MRNA, LNP-S, PF, 50 MCG/0.5 ML (AGES 12+ YEARS) 1 2022 SANDRA RAMOS RIGHT DELTO ID [id number] 312 complet ed [facility] INFLUENZA, HIGH-DOSE, QUADRIVALENT, PF 1 2022 197 complet ed [facility] N INFLUENZA, UNSPECIFIED FORMULATION 2022 88 complet ed [facility] N INFLUENZA, HIGH-DOSE, QUADRIVALENT, PF 1 2021 197 complet ed [facility] N PNEUMOCOCCAL POLYSACCHARID E PPV23 2 2021 33 complet ed [facility] (MODERNA), MRNA, LNP-S, PF, 100 MCG/0.5ML DOSE OR 50 MCG/0.25ML DOSE 3 2021 207 complet ed MOD; [id number]; 2 [facility] ZOSTER RECOMBINANT 2 2021 187 complet ed [facility] N COVID-19 (PFIZER), MRNA, LNP-S, PF, 30 MCG/0.3 ML DOSE 3 2020 208 complet ed PFR; [id number]; 1 [facility] N PNEUMOCOCCAL POLYSACCHARID E PPV23 1 2020 33 complet ed [facility] N ZOSTER RECOMBINANT 1 2020 187 complet ed [facility] N INFLUENZA, HIGH-DOSE, QUADRIVALENT, PF 1 2020 197 complet ed [facility] N COVID-19 (PFIZER), MRNA, LNP-S, PF, 30 MCG/0.3 ML DOSE 2 2020 208 complet ed PFR; [id number]; 1 [facility] N COVID-19 (PFIZER), MRNA, LNP-S, PF, 30 MCG/0.3 ML DOSE 1 2020 208 complet ed PFR; [id number]; 1 [facility] N INFLUENZA, HIGH-DOSE, QUADRIVALENT 2019 197 complet ed Partner: [facility]. Administe red by: [facility] Clinician (NPI=Not Provided) . Partner 7 Lot#: [id number] Mfr: sanofi pasteur; Dosage: [id number] ml [facility] INFLUENZA, UNSPECIFIED FORMULATION 2019 88 complet ed [facility] INFLUENZA, UNSPECIFIED FORMULATION 2018 88 complet ed [facility] INFLUENZA, TRIVALENT, ADJUVANTED 2018 168 complet ed Partner: [facility]. Administe red by: [facility] Clinician (NPI=Not Provided) . Partner 7 Lot#: [id number] Mfr: Lover.ly [facility] INFLUENZA, INJECTABLE, QUADRIVALENT, PRESERVATIVE FREE 2017 150 complet ed Partner: [facility]. Administe red by: [facility] Clinician (NPI=Not Provided) . Partner 7 Lot#: [id number] Mfr: VuCOMP [facility] INFLUENZA, SPLIT VIRUS, QUADRIVALENT, PF 2 2017 150 complet ed [facility] N INFLUENZA, HIGH-DOSE, TRIVALENT, PF 1 2017 135 complet ed [facility] N TDAP 2017 115 complet ed Right Deltoid [facility] N TD (ADULT), 2 LF TETANUS TOXOID, PRESERVATIVE FREE, ADSORBED 1 2017 09 complet ed [facility] N INFLUENZA, HIGH-DOSE, TRIVALENT, PF 1 2016 135 complet ed [facility] N INFLUENZA, UNSPECIFIED FORMULATION 2016 88 complet ed [facility] INFLUENZA, UNSPECIFIED FORMULATION 2015 88 complet ed [facility] N NOVEL INFLUENZA-H1N 1-09, ALL FORMULATIONS 1 2015 128 complet ed [facility] PNEUMOCOCCAL POLYSACCHARID E PPV23 2015 33 complet ed [facility] PNEUMOCOCCAL CONJUGATE PCV 13 2014 133 complet ed [facility] INFLUENZA, UNSPECIFIED FORMULATION 2014 88 complet ed [facility] N INFLUENZA, HIGH-DOSE, TRIVALENT, PF 1 2014 135 complet ed [facility] INFLUENZA, UNSPECIFIED FORMULATION 2013 88 complet ed [facility] N INFLUENZA, UNSPECIFIED FORMULATION 2013 88 complet ed [facility] INFLUENZA, UNSPECIFIED FORMULATION 2012 88 complet ed [place] INFLUENZA, UNSPECIFIED FORMULATION 2012 88 complet ed [facility] INFLUENZA, UNSPECIFIED FORMULATION 2012 88 complet ed [facility] INFLUENZA, UNSPECIFIED FORMULATION 2011 88 complet ed [facility] ZOSTER LIVE 2011 121 complet ed [facility] INFLUENZA, UNSPECIFIED FORMULATION 2010 88 complet ed [facility] INFLUENZA, UNSPECIFIED FORMULATION 2010 88 complet ed [facility] INFLUENZA, UNSPECIFIED FORMULATION 2009 88 complet ed [place] TDAP 2007 115 complet ed [place] Results Combined list of recent chemistry, hematology and other laboratory results from Department of Defense and Veterans Affairs, ranging from 15 months to all on record, depending upon the facility. Order Name Results Value Reference Range Date Interpretation Specimen Comments Source URINE DRUG SCREEN (STL) ETHANOL [MASS/VOLU ME] IN URINE 63 mg/dL 0 - 9 10/16 H Specimen Type: URINE Comment: The cut-off value for Fentanyl was laboratory developed and its performance characteris tics confirmed by the [facility] laboratory thru method comparison with reference laboratory and medication chart review. The laboratory is regulated under CLIA as qualified to perform high-comple xity testing. Fentanyl is used for clinical purposes in conjunction with other laboratory tests. Ordering Provider: JAIME AWAD Report Released Date/Time: Oct 11, 2024 10:37 AM Reporting Lab: [facility] [address] [address] Performing Lab: [facility] [address] [address] [facility] URINE DRUG SCREEN (STL) AMPHETAMIN E [PRESENCE] IN URINE BY SCREEN METHOD Negative ng/mL 10/16 Specimen Type: URINE Comment: The cut-off value for Fentanyl was laboratory developed and its performance characteris tics confirmed by the [facility] laboratory thru method comparison with reference laboratory and medication chart review. The laboratory is regulated under CLIA as qualified to perform high-comple xity testing. Fentanyl is used for clinical purposes in conjunction with other laboratory tests. Ordering Provider: JAIME AWAD Report Released Date/Time: Oct 11, 2024 10:37 AM Reporting Lab: [facility] [address] [address] Performing Lab: [address] [address] [facility] URINE DRUG SCREEN (STL) BENZOYLECG ONINE [PRESENCE] IN URINE Negative ng/mL 10/16 Specimen Type: URINE Comment: The cut-off value for Fentanyl was laboratory developed and its performance characteris tics confirmed by the [facility] laboratory thru method comparison with reference laboratory and medication chart review. The laboratory is regulated under CLIA as qualified to perform high-comple xity testing. Fentanyl is used for clinical purposes in conjunction with other laboratory tests. Ordering Provider: JAIME AWAD Report Released Date/Time: Oct 11, 2024 10:37 AM Reporting Lab: [facility] [address] [address] Performing Lab: [facility] [address] [address] [facility] URINE DRUG SCREEN (STL) BENZODIAZE PINES [PRESENCE] IN URINE BY SCREEN METHOD Negative ng/mL 10/16 Specimen Type: URINE Comment: The cut-off value for Fentanyl was laboratory developed and its performance characteris tics confirmed by the [facility] laboratory thru method comparison with reference laboratory and medication chart review. The laboratory is regulated under CLIA as qualified to perform high-comple xity testing. Fentanyl is used for clinical purposes in conjunction with other laboratory tests. Ordering Provider: JAIME AWAD Report Released Date/Time: Oct 11, 2024 10:37 AM Reporting Lab: [facility] [address] [facility] [address] Performing Lab: [facility] [address] [address] [facility] URINE DRUG SCREEN (STL) CANNABINOI DS [PRESENCE] IN URINE BY SCREEN METHOD Negative ng/mL 10/16 Specimen Type: URINE Comment: The cut-off value for Fentanyl was laboratory developed and its performance characteris tics confirmed by the [facility] laboratory thru method comparison with reference laboratory and medication chart review. The laboratory is regulated under CLIA as qualified to perform high-comple xity testing. Fentanyl is used for clinical purposes in conjunction with other laboratory tests. Ordering Provider: JAIME AWAD Report Released Date/Time: Oct 11, 2024 10:37 AM Reporting Lab: [facility] [address] [facility] [address] Performing Lab: [facility] [address] [facility] [facility] [phone] [facility] URINE DRUG SCREEN (STL) METHADONE [PRESENCE] IN URINE Negative ng/mL 10/16 Specimen Type: URINE Comment: The cut-off value for Fentanyl was laboratory developed and its performance characteris tics confirmed by the [facility] laboratory thru method comparison with reference laboratory and medication chart review. The laboratory is regulated under CLIA as qualified to perform high-comple xity testing. Fentanyl is used for clinical purposes in conjunction with other laboratory tests. Ordering Provider: JAIME AWAD Report Released Date/Time: Oct 11, 2024 10:37 AM Reporting Lab: [facility] [address] [facility] [address] Performing Lab: [facility] [address] [facility] [facility] [address] [facility] URINE DRUG SCREEN (STL) OPIATES [PRESENCE] IN URINE BY SCREEN METHOD Negative ng/mL 10/16 Specimen Type: URINE Comment: The cut-off value for Fentanyl was laboratory developed and its performance characteris tics confirmed by the [facility] laboratory thru method comparison with reference laboratory and medication chart review. The laboratory is regulated under CLIA as qualified to perform high-comple xity testing. Fentanyl is used for clinical purposes in conjunction with other laboratory tests. Ordering Provider: JAIME AWAD Report Released Date/Time: Oct 11, 2024 10:37 AM Reporting Lab: [place] [address] [facility] [address] Performing Lab: [place] [address] [facility] [address] [facility] URINE DRUG SCREEN (STL) CREATININE [MASS/VOLU ME] IN URINE 71.9 mg/dL 63 - 166 10/16 Specimen Type: URINE Comment: The cut-off value for Fentanyl was laboratory developed and its performance characteris tics confirmed by the [facility] laboratory thru method comparison with reference laboratory and medication chart review. The laboratory is regulated under CLIA as qualified to perform high-comple xity testing. Fentanyl is used for clinical purposes in conjunction with other laboratory tests. Ordering Provider: JAIME AWAD Report Released Date/Time: Oct 11, 2024 10:37 AM Reporting Lab: [facility] [address] [facility] [address] Performing Lab: [place] [address] [facility] [address] [facility] URINE DRUG SCREEN (STL) OXYCODONE CUTOFF [MASS/VOLU ME] IN URINE FOR SCREEN METHOD Negative ng/mL 10/16 Specimen Type: URINE Comment: The cut-off value for Fentanyl was laboratory developed and its performance characteris tics confirmed by the [facility] laboratory thru method comparison with reference laboratory and medication chart review. The laboratory is regulated under CLIA as qualified to perform high-comple xity testing. Fentanyl is used for clinical purposes in conjunction with other laboratory tests. Ordering Provider: JAIME AWAD Report Released Date/Time: Oct 11, 2024 10:37 AM Reporting Lab: [facility] [address] [facility] [address] Performing Lab: [address] [phone] [place] [address] URINE DRUG SCREEN (STL) BUPRENORPH INE [PRESENCE] IN URINE Negative ng/mL 10/16 Specimen Type: URINE Comment: The cut-off value for Fentanyl was laboratory developed and its performance characteris tics confirmed by the [facility] laboratory thru method comparison with reference laboratory and medication chart review. The laboratory is regulated under CLIA as qualified to perform high-comple xity testing. Fentanyl is used for clinical purposes in conjunction with other laboratory tests. Ordering Provider: JAIME AWAD Report Released Date/Time: Oct 11, 2024 10:37 AM Reporting Lab: [address] [address] Performing Lab: [address] [phone] [place] [address] URINE DRUG SCREEN (STL) FENTANYL [PRESENCE] IN URINE Negative ng/mL 10/16 Specimen Type: URINE Comment: The cut-off value for Fentanyl was laboratory developed and its performance characteris tics confirmed by the [facility] laboratory thru method comparison with reference laboratory and medication chart review. The laboratory is regulated under CLIA as qualified to perform high-comple xity testing. Fentanyl is used for clinical purposes in conjunction with other laboratory tests. Ordering Provider: JAIME AWAD Report Released Date/Time: Oct 11, 2024 10:37 AM Reporting Lab: [address] [address] Performing Lab: [address] [address] [facility] METHADON E PANEL (STL) ETHANOL [MASS/VOLU ME] IN URINE 55-POSmg /dL 0 - 20 04/09 H Specimen Type: URINE Comment: The cut-off value for this test was laboratory developed and its performance characteris tics confirmed by the [facility] laboratory thru method comparison with reference laboratory and medication chart review. The laboratory is regulated under CLIA as qualified to perform high-comple xity testing. This test is used for clinical purposes in conjunction with other laboratory tests. Ordering Provider: JAIME AWAD Report Released Date/Time: Mar 30, 2024 09:55 AM Reporting Lab: [facility] [address] [facility] [address] Performing Lab: [address] [address] [facility] METHADON E PANEL (STL) AMPHETAMIN E [PRESENCE] IN URINE BY SCREEN METHOD Negative ng/mL 04/09 Specimen Type: URINE Comment: The cut-off value for this test was laboratory developed and its performance characteris tics confirmed by the [facility] laboratory thru method comparison with reference laboratory and medication chart review. The laboratory is regulated under CLIA as qualified to perform high-comple xity testing. This test is used for clinical purposes in conjunction with other laboratory tests. Ordering Provider: JAIME AWAD Report Released Date/Time: Mar 30, 2024 09:55 AM Reporting Lab: [facility] [address] [address] Performing Lab: [place] [address] [facility] [address] [facility] METHADON E PANEL (STL) BENZOYLECG ONINE [PRESENCE] IN URINE Negative ng/mL 04/09 Specimen Type: URINE Comment: The cut-off value for this test was laboratory developed and its performance characteris tics confirmed by the [facility] laboratory thru method comparison with reference laboratory and medication chart review. The laboratory is regulated under CLIA as qualified to perform high-comple xity testing. This test is used for clinical purposes in conjunction with other laboratory tests. Ordering Provider: JAIME AWAD Report Released Date/Time: Mar 30, 2024 09:55 AM Reporting Lab: [facility] [address] [facility] [address] Performing Lab: [facility] [address] [facility] [address] [facility] METHADON E PANEL (STL) BENZODIAZE PINES [PRESENCE] IN URINE BY SCREEN METHOD Negative ng/mL 04/09 Specimen Type: URINE Comment: The cut-off value for this test was laboratory developed and its performance characteris tics confirmed by the [facility] laboratory thru method comparison with reference laboratory and medication chart review. The laboratory is regulated under CLIA as qualified to perform high-comple xity testing. This test is used for clinical purposes in conjunction with other laboratory tests. Ordering Provider: JAIME AWAD Report Released Date/Time: Mar 30, 2024 09:55 AM Reporting Lab: [place] [address] [facility] [address] Performing Lab: [place] [address] [facility] [address] [facility] METHADON E PANEL (STL) CANNABINOI DS [PRESENCE] IN URINE BY SCREEN METHOD Negative ng/mL 04/09 Specimen Type: URINE Comment: The cut-off value for this test was laboratory developed and its performance characteris tics confirmed by the [facility] laboratory thru method comparison with reference laboratory and medication chart review. The laboratory is regulated under CLIA as qualified to perform high-comple xity testing. This test is used for clinical purposes in conjunction with other laboratory tests. Ordering Provider: JAIME AWAD Report Released Date/Time: Mar 30, 2024 09:55 AM Reporting Lab: [place] [address] [facility] [address] Performing Lab: [address] [address] [facility] METHADON E PANEL (STL) METHADONE [PRESENCE] IN URINE Negative ng/mL 04/09 Specimen Type: URINE Comment: The cut-off value for this test was laboratory developed and its performance characteris tics confirmed by the [facility] laboratory thru method comparison with reference laboratory and medication chart review. The laboratory is regulated under CLIA as qualified to perform high-comple xity testing. This test is used for clinical purposes in conjunction with other laboratory tests. Ordering Provider: JAIME AWAD Report Released Date/Time: Mar 30, 2024 09:55 AM Reporting Lab: [facility] [address] [facility] [phone] Performing Lab: [facility] [address] [place] [phone] [facility] METHADON E PANEL (STL) OPIATES [PRESENCE] IN URINE BY SCREEN METHOD Negative ng/mL 04/09 Specimen Type: URINE Comment: The cut-off value for this test was laboratory developed and its performance characteris tics confirmed by the [facility] laboratory thru method comparison with reference laboratory and medication chart review. The laboratory is regulated under CLIA as qualified to perform high-comple xity testing. This test is used for clinical purposes in conjunction with other laboratory tests. Ordering Provider: JAIME AWAD Report Released Date/Time: Mar 30, 2024 09:55 AM Reporting Lab: [facility] [address] [place] [phone] Performing Lab: [address] [address] [facility] METHADON E PANEL (STL) CREATININE [MASS/VOLU ME] IN URINE 98.8 mg/dL 63 - 166 04/09 Specimen Type: URINE Comment: The cut-off value for this test was laboratory developed and its performance characteris tics confirmed by the [facility] laboratory thru method comparison with reference laboratory and medication chart review. The laboratory is regulated under CLIA as qualified to perform high-comple xity testing. This test is used for clinical purposes in conjunction with other laboratory tests. Ordering Provider: JAIME AWAD Report Released Date/Time: Mar 30, 2024 09:55 AM Reporting Lab: [address] [address] Performing Lab: [address] [address] [facility] METHADON E PANEL (STL) OXYCODONE CUTOFF [MASS/VOLU ME] IN URINE FOR SCREEN METHOD Negative ng/mL 04/09 Specimen Type: URINE Comment: The cut-off value for this test was laboratory developed and its performance characteris tics confirmed by the [facility] laboratory thru method comparison with reference laboratory and medication chart review. The laboratory is regulated under CLIA as qualified to perform high-comple xity testing. This test is used for clinical purposes in conjunction with other laboratory tests. Ordering Provider: JAIME AWAD Report Released Date/Time: Mar 30, 2024 09:55 AM Reporting Lab: [facility] [address] [facility] [address] Performing Lab: [facility] [address] [facility] [phone] [facility] METHADON E PANEL (STL) BUPRENORPH INE [PRESENCE] IN URINE Negative 04/09 Specimen Type: URINE Comment: The cut-off value for this test was laboratory developed and its performance characteris tics confirmed by the [facility] laboratory thru method comparison with reference laboratory and medication chart review. The laboratory is regulated under CLIA as qualified to perform high-comple xity testing. This test is used for clinical purposes in conjunction with other laboratory tests. Ordering Provider: JAIME AWAD Report Released Date/Time: Mar 30, 2024 09:55 AM Reporting Lab: [facility] [address] [facility] [address] Performing Lab: [facility] [address] [facility] [address] [facility] METHADON E PANEL (STL) FENTANYL [PRESENCE] IN URINE Negative ng/mL 04/09 Specimen Type: URINE Comment: The cut-off value for this test was laboratory developed and its performance characteris tics confirmed by the [facility] laboratory thru method comparison with reference laboratory and medication chart review. The laboratory is regulated under CLIA as qualified to perform high-comple xity testing. This test is used for clinical purposes in conjunction with other laboratory tests. Ordering Provider: JAIME AWAD Report Released Date/Time: Mar 30, 2024 09:55 AM Reporting Lab: [address] [address] Performing Lab: [facility] [address] [place] [phone] [facility] METHADON E PANEL (STL) ETHANOL [MASS/VOLU ME] IN URINE 28-POSmg /dL 0 - 20 09/30 H Specimen Type: URINE Comment: The cut-off value for this test was laboratory developed and its performance characteris tics confirmed by the [facility] laboratory thru method comparison with reference laboratory and medication chart review. The laboratory is regulated under CLIA as qualified to perform high-comple xity testing. This test is used for clinical purposes in conjunction with other laboratory tests. Ordering Provider: JAIME AWAD Report Released Date/Time: Aug 26, 2023 09:14 AM Reporting Lab: [address] [address] Performing Lab: [phone] [place] [address] METHADON E PANEL (STL) AMPHETAMIN E [PRESENCE] IN URINE BY SCREEN METHOD Negative ng/mL 09/30 Specimen Type: URINE Comment: The cut-off value for this test was laboratory developed and its performance characteris tics confirmed by the [facility] laboratory thru method comparison with reference laboratory and medication chart review. The laboratory is regulated under CLIA as qualified to perform high-comple xity testing. This test is used for clinical purposes in conjunction with other laboratory tests. Ordering Provider: JAIME AWAD Report Released Date/Time: Aug 26, 2023 09:14 AM Reporting Lab: [address] [address] Performing Lab: [address] [address] [facility] METHADON E PANEL (STL) BENZOYLECG ONINE [PRESENCE] IN URINE Negative ng/mL 09/30 Specimen Type: URINE Comment: The cut-off value for this test was laboratory developed and its performance characteris tics confirmed by the [facility] laboratory thru method comparison with reference laboratory and medication chart review. The laboratory is regulated under CLIA as qualified to perform high-comple xity testing. This test is used for clinical purposes in conjunction with other laboratory tests. Ordering Provider: JAIME AWAD Report Released Date/Time: Aug 26, 2023 09:14 AM Reporting Lab: [facility] [address] [facility] [address] Performing Lab: [facility] [address] [facility] [address] [facility] METHADON E PANEL (STL) BENZODIAZE PINES [PRESENCE] IN URINE BY SCREEN METHOD Negative ng/mL 09/30 Specimen Type: URINE Comment: The cut-off value for this test was laboratory developed and its performance characteris tics confirmed by the [facility] laboratory thru method comparison with reference laboratory and medication chart review. The laboratory is regulated under CLIA as qualified to perform high-comple xity testing. This test is used for clinical purposes in conjunction with other laboratory tests. Ordering Provider: JAIME AWAD Report Released Date/Time: Aug 26, 2023 09:14 AM Reporting Lab: [facility] [address] [facility] [phone] Performing Lab: [facility] [address] [facility] [address] [facility] METHADON E PANEL (STL) CANNABINOI DS [PRESENCE] IN URINE BY SCREEN METHOD Negative ng/mL 09/30 Specimen Type: URINE Comment: The cut-off value for this test was laboratory developed and its performance characteris tics confirmed by the [facility] laboratory thru method comparison with reference laboratory and medication chart review. The laboratory is regulated under CLIA as qualified to perform high-comple xity testing. This test is used for clinical purposes in conjunction with other laboratory tests. Ordering Provider: JAIME AWAD Report Released Date/Time: Aug 26, 2023 09:14 AM Reporting Lab: [facility] [address] [facility] [phone] Performing Lab: [address] [address] [facility] METHADON E PANEL (STL) METHADONE [PRESENCE] IN URINE Negative ng/mL 09/30 Specimen Type: URINE Comment: The cut-off value for this test was laboratory developed and its performance characteris tics confirmed by the [facility] laboratory thru method comparison with reference laboratory and medication chart review. The laboratory is regulated under CLIA as qualified to perform high-comple xity testing. This test is used for clinical purposes in conjunction with other laboratory tests. Ordering Provider: JAIME AWAD Report Released Date/Time: Aug 26, 2023 09:14 AM Reporting Lab: [address] [address] Performing Lab: [address] [address] [facility] METHADON E PANEL (STL) OPIATES [PRESENCE] IN URINE BY SCREEN METHOD Negative ng/mL 09/30 Specimen Type: URINE Comment: The cut-off value for this test was laboratory developed and its performance characteris tics confirmed by the [facility] laboratory thru method comparison with reference laboratory and medication chart review. The laboratory is regulated under CLIA as qualified to perform high-comple xity testing. This test is used for clinical purposes in conjunction with other laboratory tests. Ordering Provider: JAIME AWAD Report Released Date/Time: Aug 26, 2023 09:14 AM Reporting Lab: [address] [address] Performing Lab: [address] [address] [facility] METHADON E PANEL (STL) CREATININE [MASS/VOLU ME] IN URINE 127.2 mg/dL 63 - 166 09/30 Specimen Type: URINE Comment: The cut-off value for this test was laboratory developed and its performance characteris tics confirmed by the [facility] laboratory thru method comparison with reference laboratory and medication chart review. The laboratory is regulated under CLIA as qualified to perform high-comple xity testing. This test is used for clinical purposes in conjunction with other laboratory tests. Ordering Provider: JAIME AWAD Report Released Date/Time: Aug 26, 2023 09:14 AM Reporting Lab: [facility] [address] [facility] [address] Performing Lab: [facility] [address] [place] [phone] [facility] METHADON E PANEL (STL) OXYCODONE CUTOFF [MASS/VOLU ME] IN URINE FOR SCREEN METHOD Negative ng/mL 09/30 Specimen Type: URINE Comment: The cut-off value for this test was laboratory developed and its performance characteris tics confirmed by the [facility] laboratory thru method comparison with reference laboratory and medication chart review. The laboratory is regulated under CLIA as qualified to perform high-comple xity testing. This test is used for clinical purposes in conjunction with other laboratory tests. Ordering Provider: JAIME AWAD Report Released Date/Time: Aug 26, 2023 09:14 AM Reporting Lab: [address] [address] Performing Lab: [address] [address] [facility] METHADON E PANEL (STL) BUPRENORPH INE [PRESENCE] IN URINE Negative 09/30 Specimen Type: URINE Comment: The cut-off value for this test was laboratory developed and its performance characteris tics confirmed by the [facility] laboratory thru method comparison with reference laboratory and medication chart review. The laboratory is regulated under CLIA as qualified to perform high-comple xity testing. This test is used for clinical purposes in conjunction with other laboratory tests. Ordering Provider: JAIME AWAD Report Released Date/Time: Aug 26, 2023 09:14 AM Reporting Lab: [place] [id number] [facility] [address] Performing Lab: [address] [phone] [facility] METHADON E PANEL (STL) FENTANYL [PRESENCE] IN URINE Negative ng/mL 09/30 Specimen Type: URINE Comment: The cut-off value for this test was laboratory developed and its performance characteris tics confirmed by the [facility] laboratory thru method comparison with reference laboratory and medication chart review. The laboratory is regulated under CLIA as qualified to perform high-comple xity testing. This test is used for clinical purposes in conjunction with other laboratory tests. Ordering Provider: JAIME AWAD Report Released Date/Time: Aug 26, 2023 09:14 AM Reporting Lab: [address] [address] Performing Lab: [place] [id number] HGA1C HEMOGLOBIN A1C/HEMOGL OBIN.TOTAL IN BLOOD 5.1 4.0 - 6.0 03/31 Specimen Type: BLOOD Comment: The cut-off value for this test was laboratory developed and its performance characteris tics confirmed by the [facility] laboratory thru method comparison with reference laboratory and medication chart review. The laboratory is regulated under CLIA as qualified to perform high-comple xity testing. This test is used for clinical purposes in conjunction with other laboratory tests. Ordering Provider: JAIME AWAD Report Released Date/Time: Mar 30, 2023 04:37 PM Reporting Lab: [address] [address] Performing Lab: [address] [address] [facility] METHADON E PANEL (STL) ETHANOL [MASS/VOLU ME] IN URINE Negative mg/dL 0 - 20 03/31 Specimen Type: URINE Comment: The cut-off value for this test was laboratory developed and its performance characteris tics confirmed by the [facility] laboratory thru method comparison with reference laboratory and medication chart review. The laboratory is regulated under CLIA as qualified to perform high-comple xity testing. This test is used for clinical purposes in conjunction with other laboratory tests. Ordering Provider: AWAD,SHELB Y R Report Released Date/Time: Mar 30, 2023 12:01 PM Reporting Lab: [place] [address] [facility] [address] Performing Lab: [place] [address] [facility] [address] [facility] METHADON E PANEL (STL) AMPHETAMIN E [PRESENCE] IN URINE BY SCREEN METHOD Negative ng/mL 03/31 Specimen Type: URINE Comment: The cut-off value for this test was laboratory developed and its performance characteris tics confirmed by the [facility] laboratory thru method comparison with reference laboratory and medication chart review. The laboratory is regulated under CLIA as qualified to perform high-comple xity testing. This test is used for clinical purposes in conjunction with other laboratory tests. Ordering Provider: JAIME AWAD Report Released Date/Time: Mar 30, 2023 12:01 PM Reporting Lab: [place] [address] [facility] [address] Performing Lab: [place] [address] [facility] [address] [facility] METHADON E PANEL (STL) BENZOYLECG ONINE [PRESENCE] IN URINE Negative ng/mL 03/31 Specimen Type: URINE Comment: The cut-off value for this test was laboratory developed and its performance characteris tics confirmed by the [facility] laboratory thru method comparison with reference laboratory and medication chart review. The laboratory is regulated under CLIA as qualified to perform high-comple xity testing. This test is used for clinical purposes in conjunction with other laboratory tests. Ordering Provider: JAIME AWAD Report Released Date/Time: Mar 30, 2023 12:01 PM Reporting Lab: [place] [address] [facility] [address] Performing Lab: [place] [address] [facility] [address] [facility] METHADON E PANEL (STL) BENZODIAZE PINES [PRESENCE] IN URINE BY SCREEN METHOD Negative ng/mL 03/31 Specimen Type: URINE Comment: The cut-off value for this test was laboratory developed and its performance characteris tics confirmed by the [facility] laboratory thru method comparison with reference laboratory and medication chart review. The laboratory is regulated under CLIA as qualified to perform high-comple xity testing. This test is used for clinical purposes in conjunction with other laboratory tests. Ordering Provider: JAIME AWAD Report Released Date/Time: Mar 30, 2023 12:01 PM Reporting Lab: [facility] [address] [facility] [address] Performing Lab: [facility] [address] [facility] [address] [facility] METHADON E PANEL (STL) CANNABINOI DS [PRESENCE] IN URINE BY SCREEN METHOD Negative ng/mL 03/31 Specimen Type: URINE Comment: The cut-off value for this test was laboratory developed and its performance characteris tics confirmed by the [facility] laboratory thru method comparison with reference laboratory and medication chart review. The laboratory is regulated under CLIA as qualified to perform high-comple xity testing. This test is used for clinical purposes in conjunction with other laboratory tests. Ordering Provider: JAIME AWAD Report Released Date/Time: Mar 30, 2023 12:01 PM Reporting Lab: [facility] [address] [facility] [address] Performing Lab: [place] [address] [facility] [address] [facility] METHADON E PANEL (STL) METHADONE [PRESENCE] IN URINE Negative ng/mL 03/31 Specimen Type: URINE Comment: The cut-off value for this test was laboratory developed and its performance characteris tics confirmed by the [facility] laboratory thru method comparison with reference laboratory and medication chart review. The laboratory is regulated under CLIA as qualified to perform high-comple xity testing. This test is used for clinical purposes in conjunction with other laboratory tests. Ordering Provider: JAIME AWAD Report Released Date/Time: Mar 30, 2023 12:01 PM Reporting Lab: [facility] [address] [facility] [address] Performing Lab: [place] [address] [facility] [address] [facility] METHADON E PANEL (STL) OPIATES [PRESENCE] IN URINE BY SCREEN METHOD Negative ng/mL 03/31 Specimen Type: URINE Comment: The cut-off value for this test was laboratory developed and its performance characteris tics confirmed by the [facility] laboratory thru method comparison with reference laboratory and medication chart review. The laboratory is regulated under CLIA as qualified to perform high-comple xity testing. This test is used for clinical purposes in conjunction with other laboratory tests. Ordering Provider: JAIME AWAD Report Released Date/Time: Mar 30, 2023 12:01 PM Reporting Lab: [address] [address] Performing Lab: [address] [address] [facility] METHADON E PANEL (STL) CREATININE [MASS/VOLU ME] IN URINE 61.4 mg/dL 63 - 166 03/31 L Specimen Type: URINE Comment: The cut-off value for this test was laboratory developed and its performance characteris tics confirmed by the [facility] laboratory thru method comparison with reference laboratory and medication chart review. The laboratory is regulated under CLIA as qualified to perform high-comple xity testing. This test is used for clinical purposes in conjunction with other laboratory tests. Ordering Provider: JAIME AWAD Report Released Date/Time: Mar 30, 2023 12:01 PM Reporting Lab: [address] [address] Performing Lab: [address] [address] [facility] METHADON E PANEL (STL) OXYCODONE CUTOFF [MASS/VOLU ME] IN URINE FOR SCREEN METHOD Negative ng/mL 03/31 Specimen Type: URINE Comment: The cut-off value for this test was laboratory developed and its performance characteris tics confirmed by the [facility] laboratory thru method comparison with reference laboratory and medication chart review. The laboratory is regulated under CLIA as qualified to perform high-comple xity testing. This test is used for clinical purposes in conjunction with other laboratory tests. Ordering Provider: JAIME AWAD Report Released Date/Time: Mar 30, 2023 12:01 PM Reporting Lab: [facility] [address] [facility] [address] Performing Lab: [facility] [address] [place] [address] [facility] METHADON E PANEL (STL) BUPRENORPH INE [PRESENCE] IN URINE Negative 03/31 Specimen Type: URINE Comment: The cut-off value for this test was laboratory developed and its performance characteris tics confirmed by the [facility] laboratory thru method comparison with reference laboratory and medication chart review. The laboratory is regulated under CLIA as qualified to perform high-comple xity testing. This test is used for clinical purposes in conjunction with other laboratory tests. Ordering Provider: JAIME AWAD Report Released Date/Time: Mar 30, 2023 12:01 PM Reporting Lab: [address] [address] Performing Lab: [address] [address] [facility] METHADON E PANEL (STL) FENTANYL [PRESENCE] IN URINE Negative ng/mL 03/31 Specimen Type: URINE Comment: The cut-off value for this test was laboratory developed and its performance characteris tics confirmed by the [facility] laboratory thru method comparison with reference laboratory and medication chart review. The laboratory is regulated under CLIA as qualified to perform high-comple xity testing. This test is used for clinical purposes in conjunction with other laboratory tests. Ordering Provider: JAIME AWAD Report Released Date/Time: Mar 30, 2023 12:01 PM Reporting Lab: [address] [address] Performing Lab: [address] [address] [facility] LIPID PANEL (STL) CHOLESTERO L [MASS/VOLU ME] IN SERUM OR PLASMA 158 mg/dL 0 - 200 03/31 Specimen Type: PLASMA Comment: No hemolysis noted. Ordering Provider: JAIME AWAD Report Released Date/Time: Mar 30, 2023 04:37 PM Reporting Lab: [place] [address] [facility] [address] Performing Lab: [address] [address] [facility] LIPID PANEL (STL) TRIGLYCERI DE [MASS/VOLU ME] IN SERUM OR PLASMA 129 mg/dL 0 - 150 03/31 Specimen Type: PLASMA Comment: No hemolysis noted. Ordering Provider: JAIME AWAD Report Released Date/Time: Mar 30, 2023 04:37 PM Reporting Lab: [address] [address] Performing Lab: [address] [address] [facility] LIPID PANEL (STL) CHOLESTERO L IN LDL [MASS/VOLU ME] IN SERUM OR PLASMA BY RAO N 84 mg/dL 03/31 Specimen Type: PLASMA Comment: No hemolysis noted. Ordering Provider: JAIME AWAD Report Released Date/Time: Mar 30, 2023 04:37 PM Reporting Lab: [address] [address] Performing Lab: [address] [address] [facility] LIPID PANEL (STL) CHOLESTERO L IN HDL [MASS/VOLU ME] IN SERUM OR PLASMA 48 mg/dL 03/31 Specimen Type: PLASMA Comment: No hemolysis noted. Ordering Provider: JAIME AWAD Report Released Date/Time: Mar 30, 2023 04:37 PM Reporting Lab: [address] [address] Performing Lab: [address] [address] [facility] CBC LEUKOCYTES [#/VOLUME] IN BLOOD BY AUTOMATED COUNT 3.9 10*3/uL 3.6 - 11.2 03/31 Specimen Type: BLOOD No comment entered. Ordering Provider: JAIME AWAD Report Released Date/Time: Mar 30, 2023 04:37 PM Reporting Lab: [address] [address] Performing Lab: [address] [address] [facility] CBC ERYTHROCYT ES [#/VOLUME] IN BLOOD BY AUTOMATED COUNT 3.93 10*6/uL 4.10 - 5.70 03/31 L Specimen Type: BLOOD No comment entered. Ordering Provider: JAIME AWAD Report Released Date/Time: Mar 30, 2023 04:37 PM Reporting Lab: [address] [address] Performing Lab: [address] [address] [facility] CBC HEMOGLOBIN [MASS/VOLU ME] IN BLOOD 13.0 g/dL 13.1 - 16.8 03/31 L Specimen Type: BLOOD No comment entered. Ordering Provider: JAIME AWAD Report Released Date/Time: Mar 30, 2023 04:37 PM Reporting Lab: [address] [address] Performing Lab: [address] [address] [facility] CBC HEMATOCRIT [VOLUME FRACTION] OF BLOOD 38.7 38.2 - 48.4 03/31 Specimen Type: BLOOD No comment entered. Ordering Provider: JAIME AWAD Report Released Date/Time: Mar 30, 2023 04:37 PM Reporting Lab: [address] [address] Performing Lab: [address] [place] [address] [facility] CBC MCV [ENTITIC VOLUME] BY AUTOMATED COUNT 98.5 fL 80.0 - 100.0 03/31 Specimen Type: BLOOD No comment entered. Ordering Provider: JAIME AWAD Report Released Date/Time: Mar 30, 2023 04:37 PM Reporting Lab: [address] [address] Performing Lab: [address] [address] [facility] CBC MCH [ENTITIC MASS] BY AUTOMATED COUNT 33.1 pg 27.0 - 34.0 03/31 Specimen Type: BLOOD No comment entered. Ordering Provider: JAIME AWAD Report Released Date/Time: Mar 30, 2023 04:37 PM Reporting Lab: [address] [address] Performing Lab: [address] [address] [facility] CBC MCHC [MASS/VOLU ME] BY AUTOMATED COUNT 33.6 g/dL 33.0 - 36.0 03/31 Specimen Type: BLOOD No comment entered. Ordering Provider: JAIME AWAD Report Released Date/Time: Mar 30, 2023 04:37 PM Reporting Lab: [address] [address] Performing Lab: [address] [address] [facility] CBC PLATELETS [#/VOLUME] IN BLOOD BY AUTOMATED COUNT 169 10*3/uL 150 - 400 03/31 Specimen Type: BLOOD No comment entered. Ordering Provider: JAIME AWAD Report Released Date/Time: Mar 30, 2023 04:37 PM Reporting Lab: [address] [address] Performing Lab: [address] [address] [facility] CBC PLATELET MEAN VOLUME [ENTITIC VOLUME] IN BLOOD BY AUTOMATED COUNT 10.5 fL 7.5 - 11.2 03/31 Specimen Type: BLOOD No comment entered. Ordering Provider: JAIME AWAD Report Released Date/Time: Mar 30, 2023 04:37 PM Reporting Lab: [place] [address] [facility] [address] Performing Lab: [address] [address] [facility] CBC ERYTHROCYT E DISTRIBUTI ON WIDTH [RATIO] BY AUTOMATED COUNT 14.0 11.8 - 15.1 03/31 Specimen Type: BLOOD No comment entered. Ordering Provider: JAIME AWAD Report Released Date/Time: Mar 30, 2023 04:37 PM Reporting Lab: [address] [address] Performing Lab: [place] [address] [facility] [address] [facility] CBC LYMPHOCYTE S/100 LEUKOCYTES IN BLOOD BY AUTOMATED COUNT 30 03/31 Specimen Type: BLOOD No comment entered. Ordering Provider: JAIME AWAD Report Released Date/Time: Mar 30, 2023 04:37 PM Reporting Lab: [place] [address] [facility] [address] Performing Lab: [address] [address] [facility] CBC MONOCYTES/ 100 LEUKOCYTES IN BLOOD BY AUTOMATED COUNT 11 03/31 Specimen Type: BLOOD No comment entered. Ordering Provider: JAIME AWAD Report Released Date/Time: Mar 30, 2023 04:37 PM Reporting Lab: [address] [address] Performing Lab: [place] [address] [facility] [address] [facility] CBC NEUTROPHIL S/100 LEUKOCYTES IN BLOOD BY AUTOMATED COUNT 52 06/29 /2023 Specimen Type: BLOOD No comment entered. Ordering Provider: JAIME AWAD Report Released Date/Time: Mar 30, 2023 04:37 PM Reporting Lab: [facility] [address] [place] [address] Performing Lab: [facility] [address] [facility] [address] [facility] CBC EOSINOPHIL S/100 LEUKOCYTES IN BLOOD BY AUTOMATED COUNT 6 03/31 Specimen Type: BLOOD No comment entered. Ordering Provider: JAIME AWAD Report Released Date/Time: Mar 30, 2023 04:37 PM Reporting Lab: [place] [phone] Performing Lab: [address] [address] [facility] CBC BASOPHILS/ 100 LEUKOCYTES IN BLOOD BY AUTOMATED COUNT 1 03/31 Specimen Type: BLOOD No comment entered. Ordering Provider: JAIME AWAD Report Released Date/Time: Mar 30, 2023 04:37 PM Reporting Lab: [place] [phone] Performing Lab: [address] [address] [facility] CBC LYMPHOCYTE S [#/VOLUME] IN BLOOD BY AUTOMATED COUNT 1.17 10*3/uL 0.77 - 4.50 03/31 Specimen Type: BLOOD No comment entered. Ordering Provider: JAIME AWAD Report Released Date/Time: Mar 30, 2023 04:37 PM Reporting Lab: [facility] [address] [place] [address] Performing Lab: [address] [address] [facility] CBC MONOCYTES [#/VOLUME] IN BLOOD BY AUTOMATED COUNT 0.42 10*3/uL 0.19 - 1.50 03/31 Specimen Type: BLOOD No comment entered. Ordering Provider: JAIME AWAD Report Released Date/Time: Mar 30, 2023 04:37 PM Reporting Lab: [place] [address] Performing Lab: [phone] [place] [address] CBC NEUTROPHIL S [#/VOLUME] IN BLOOD BY AUTOMATED COUNT 2.01 10*3/uL 2.10 - 8.00 03/31 L Specimen Type: BLOOD No comment entered. Ordering Provider: JAIME AWAD Report Released Date/Time: Mar 30, 2023 04:37 PM Reporting Lab: [place] [address] Performing Lab: [place] [phone] CBC EOSINOPHIL S [#/VOLUME] IN BLOOD BY AUTOMATED COUNT 0.23 10*3/uL 0.00 - 0.60 03/31 Specimen Type: BLOOD No comment entered. Ordering Provider: JAIME AWAD Report Released Date/Time: Mar 30, 2023 04:37 PM Reporting Lab: [place] [address] Performing Lab: [address] [phone] CBC BASOPHILS [#/VOLUME] IN BLOOD BY AUTOMATED COUNT 0.02 10*3/uL 0.00 - 0.20 03/31 Specimen Type: BLOOD No comment entered. Ordering Provider: JAIME AWAD Report Released Date/Time: Mar 30, 2023 04:37 PM Reporting Lab: [place] [address] Performing Lab: [address] [phone] [place] [address] URIC ACID URATE [MASS/VOLU ME] IN SERUM OR PLASMA 4.4 mg/dL 3.5 - 7.2 03/31 Specimen Type: PLASMA Comment: No hemolysis noted. Ordering Provider: JAIME AWAD Report Released Date/Time: Mar 30, 2023 04:37 PM Reporting Lab: [place] [address] [facility] [address] Performing Lab: [place] [address] [facility] [address] [facility] B12 COBALAMIN (VITAMIN B12) [MASS/VOLU ME] IN [...] Mar 30, 2023 04:37 PM Reporting Lab: [address] [address] Performing Lab: [place] [address] [facility] [address] [facility] Vital Signs Combined list of inpatient and outpatient Vital Signs from Department of Defense and Veterans Affairs, ranging from 12 months to all on record, depending upon the facility. Vital Sign Value Date Comments Source SYSTOLIC BLOOD PRESSURE 122 10/11/2024 10:15:54 [facility] DIASTOLIC BLOOD PRESSURE 74 10/11/2024 10:15:54 [facility] PULSE OXIMETRY 100 10/11/2024 10:15:54 [facility] WEIGHT 161.2 10/11/2024 10:15:[facility] BMI 23 kg/m2 10/11/2024 10:15[facility] PAIN 0 10/11/2024 10:15:[facility] TEMPERATURE 97.5 10/11/2024 10:15:54 [facility] PULSE 57 10/11/2024 10:15:54 [facility] RESPIRATION 18 10/11/2024 10:15:54 [facility] SYSTOLIC BLOOD PRESSURE 134 03/30/2024 09:14:54 [facility] DIASTOLIC BLOOD PRESSURE 80 03/30/2024 09:14:54 [facility] WEIGHT 160.1 03/30/2024 09:14:54 [facility] BMI 23 kg/m2 03/30/2024 09:14:54 [facility] PAIN 4 03/30/2024 09:14:54 [facility] TEMPERATURE 98.1 03/30/2024 09:14:54 [facility] PULSE 96 03/30/2024 09:14:54 [facility] RESPIRATION 20 03/30/2024 09:14:54 [facility] Encounters Combined list of: 1) Encounters from Department of [facility] Affairs facilities going backup to the last 18 months, not all VA inpatient encounters are included; 2) Encounters from the Department of [facility] facilities going backup to 280 months. Location Location Details Encounter Type Encounter Number Reason For Visit Attending Provider ADM Date DC Date Status Disposition Source [facility] Outpatient Encounter [id number] 07/19 [facility] Outpatient Encounter [id number] 07/28 [facility] OFFICE O/P EST MOD 30-39 MIN [id number] Diagnos is: ICD-10- CM H25.11 Age-rel ated nuclear catarac t, right eye MANSI RAMESH TTHEW C 09/14 [facility] HC PRO PHONE CALL 5-10 MIN [id number] NEVAEH RAMOS C 09/27 [facility] Outpatient Encounter [id number] 09/30 [facility] OFFICE O/P EST MOD 30-39 MIN [id number] Diagnos is: ICD-10- CM E78.5 Hyperli pidemia , unspeci JOSEPH Fan BY R 09/30 [facility] Outpatient Encounter [id number] 01/10 [facility] Outpatient Encounter [id number] ZACK HERNANDEZ 02/06 [facility] OFFICE O/P EST MOD 30 MIN [id number] Diagnos is: ICD-10- CM E78.5 Hyperli pidemia , unspeci JOSEPH Fan BY R 03/30 [facility] Outpatient Encounter [id number] 07/11 [facility] Outpatient Encounter [id number] 08/20 [facility] [place] 1/ [id number] Diagnos is: ICD-10- CM H25.11 Age-rel ated nuclear catarac t, right eye АЛЕКСАНДР MILLIGAN R 09/17 [facility] OFFICE O/P EST MOD 30 MIN [id number] Diagnos is: ICD-10- CM E78.5 Hyperli pidemia , unspeci JOSEPH Fan BY R 10/11 [facility] Outpatient Encounter [id number] 10/18 [facility] Outpatient Encounter [id number] 11/13 [facility] Outpatient Encounter [id number] 11/14 [facility] Outpatient Encounter [id number] ZACK HERNANDEZ L 11/15 [facility] Outpatient Encounter [id number] 11/26 [facility] Outpatient Encounter [id number] 11/26 [facility] Social History Combined list of available smoking, tobacco, and other social history from Department of Defense and Veterans Affairs facilities. Social History Type Response Date Comment Sour e Tobacco smoking status NHIS VA-TOBACCO NEVER USED CIGARETTES 10/11/2024 [facility] History of tobacco use VA-TOBACCO USE SOME DAYS OTHER TYPE 10/11/2024 [facility] History of tobacco use VA-TOBACCO USER EVERY DAY 09/27/2023 [facility] History of tobacco use VA-TOBACCO USER EVERY DAY 02/05/2022 [facility] History of tobacco use VA-TOBACCO USER EVERY DAY 03/04/2021 [facility] History of tobacco use VA-TOBACCO USE RN STAFF NO 01/23/2020 [facility] History of tobacco use VA-TOBACCO USER EVERY DAY 04/20/2018 [facility] History of tobacco use TOBACCO USER OFFERED MEDS 03/13/2018 Kathryn [facility] History of tobacco use TOBACCO USER OFFERED MEDS 10/10/2017 [facility] History of tobacco use CURRENT TOBACCO USER 03/28/2017 [facility] History of tobacco use CURRENT TOBACCO USER 03/14/2017 Kathryn [facility] History of tobacco use CURRENT TOBACCO USER 05/31/2016 Kathryn [facility] History of tobacco use CURRENT TOBACCO USER 06/18/2015 [facility] History of tobacco use CURRENT TOBACCO USER 06/17/2014 [facility] History of tobacco use CURRENT TOBACCO USER 05/02/2013 [facility] History of tobacco use CURRENT TOBACCO USER 04/19/2012 [facility] History of tobacco use CURRENT TOBACCO USER 02/09/2011 [facility] Plan of Care List of future care activities from [facility] facilities. Additional future care activities may be listed in the Assessment and Plan section. Date/Time Care Activity Care Activity Detail Facili ty 04/19/2025 AMBULATORY - MEDICINE AMBULATORY - MEDICI NE [facility] Advance Directives List of completed, amended, or rescinded Advance Directives on record at [facility] facilities. An actual copy of the Directive is not included. Date Advance Directive Provider Source 03/17/2011 ADVANCE DIRECTIVE DISCUSSION JADE MARTINEZ [facility]
--- OUTSIDE RECORDS SUMMARY | 2024-12-20 14:29 | XMS_ITS | Encounter Summary ---
Author Name [facility] Organization [facility] Address [address] [place] [address] Care Team Providers Care Integrity Manager Name Role Phone LAVERN AWAD Primary Care [...] Name Patient's Relationship to Policy [place] [employer] [facility] (WNR) MEDICARE ADVANTAGE [facility] (WNR) Oct 03, 2022 [id number] [id number] Sunita DESIR PATIENT Selected Encounter This section includes the information on record at [place] for the Encounter. Date/Time Encounter Type Encounter Description Reason Provider Source Mar 30, 2024 09:30 AM OFFICE O/P EST MOD 30 MIN PRIMARY CARE/MEDICINE ICD-10-CM E78.5 Hyperlipidemia, unspecified LAVERN AWAD Encounter Template Text not used by [place] Assessments - Encounter Diagnoses This section includes the primary and secondary diagnoses documented for the Encounter. Date/Time Primary/Secondary Diagnosis Diagnosis Name Provider Source Apr 02, 2024 04:08 PM PRIMARY Hyperlipidemia, unspecified LAVERN AWAD [facility] Apr 02, 2024 04:08 PM SECONDARY Gout, unspecified LAVERN AWAD Kathryn TAINA [facility] Apr 02, 2024 04:08 PM SECONDARY Idiopathic progressive neuropathy LAVERN AWAD [facility] Apr 02, 2024 04:08 PM SECONDARY Male erectile dysfunction, unspecified LAVERN AWAD Kathryn TAINA [facility] Apr 02, 2024 04:08 PM SECONDARY Other vitamin B12 deficiency anemias LAVERN AWAD TAINA [facility] Apr 02, 2024 04:08 PM SECONDARY Post-traumatic stress disorder, unspecified LAVERN AWAD Kathryn [facility] Apr 02, 2024 04:08 PM SECONDARY Rash and other nonspecific skin eruption LAVERN AWAD Kathryn TAINA [facility] Apr 02, 2024 04:08 PM SECONDARY Tinnitus, unspecified ear LAVERN AWAD Kathryn [facility] Apr 02, 2024 04:08 PM SECONDARY Tobacco use LAVERN AWAD [facility] Apr 02, 2024 04:08 PM SECONDARY Transient cerebral ischemic attack, unspecified LAVERN AWAD Kathryn [facility] Apr 02, 2024 04:08 PM SECONDARY Vitamin D deficiency, unspecified RITESHLAVERN R [facility] Plan of Treatment: Future Appointments (+ 6 months) and Future Tests (+/- 45 days) The Plan of Treatment section includes future care activities for the patient from all [place] treatmentfacilities. This section includes future appointments and future orders which are active, pending or scheduled. Future Appointments This section includes appointments that were scheduled to occur 6 months from the date of the Encounter, up to a maximum of 20 appointments. The data comes from all [place] treatment facilities. Appointment Date/Time Appointment Type Appointme nt Facility Name Sep 17, 2024 11:00 AM AMBULATORY - SURGERY [facility] Lab Results: +/- 30 days of the encounter This section includes the Chemistry and Hematology Lab Results on record with MS for the patient. Radiology Reports and Pathology Reports are provided separately, in subsequent sections. Lab Results This section contains the Chemistry/Hematology Results that were resulted 30 days before or 30 daysafter the date of the Encounter. Date/Time Source Result Type Result - Unit Interpretation Reference Range Comment Apr 09, 2024 08:37 AM [facility] METHADONE PANEL (STL) Specimen Type: URINE Comment: The cut-off value for this test was laboratory developed and its performance characteristics confirmed by the [facility] laboratory thru method comparison with reference laboratory and medication chart review. The laboratory is regulated under CLIA as qualified to perform high-complexity testing. This test is used for clinical purposes in conjunction with other laboratory tests. Ordering Provider: LAVERN AWAD Report Released Date/Time: Mar 30, 2024 09:55 AM Reporting Lab: [facility] [address] [facility] [id number] Performing Lab: [facility] [address] [id number] ETHANOL 55-POS mg/dL H 0-20 AMPHET/METHAMPHE T AMINE Negative ng/mL COCAINE METABOLITES Negative ng/mL BENZODIAZEPINES (STL) Negative ng/mL CANNABINOIDS Negative ng/mL METHADONE Negative ng/mL OPIATES Negative ng/mL CREATININE URINE/OTHERS 98.8 mg/dL 63-166 OXYCODONE (EFKGU-NTS-PE) Negative ng/mL BUPRENORPHINE (STL-PB-MA) Negative FENTANYL (STL-PB) Negative ng/mL Vital Signs: All taken on the encounter date This section contains inpatient and outpatient Vital Signs collected on the date of the Encounter. Date/Time Temperature Pulse Blood Pressure Respiratory Rate SP02 Pain Height Weight Body Mass Index Source Mar 30, 2024 09:14 AM 98.1 96 134/80 20 4 160.1 23 [facility] Social History: Smoking Status (Most current) and Tobacco Use (All prior to encounter date) This section includes the most current, and the historical, smoking and tobacco- related health factors from the [place] facility where the Encounter took place. Current Smoking Status This section includes the most current smoking, or tobacco-related health factor, from the [place] facility where the Encounter took place. Date/Time Current Smoking Status Comment Facil ity February 05, 2022 11:30 AM VA-TOBACCO USER EVERY DAY [facility] Tobacco Use History This section includes a history of the smoking, or tobacco-related health factors, that were collected on or before the date of the Encounter. The data comes from the [place] facility where the Encounter took place. 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 [facility] February 05, 2022 11:30 AM VA-TOBACCO USE MED NO [facility] February 05, 2022 11:30 AM VA-TOBACCO USE WI 30 MIN OF WAKEUP [facility] February 05, 2022 11:30 AM VA-TOBACCO USER EVERY DAY [facility] Apr 20, 2018 11:40 AM VA-TOBACCO USE 30 YEARS OR MORE [facility] Apr 20, 2018 11:40 AM VA-TOBACCO USE ADVICE [facility] Apr 20, 2018 11:40 AM VA-TOBACCO 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 [facility] Apr 20, 2018 11:40 AM VA-TOBACCO USE MED NO [facility] Apr 20, 2018 11:40 AM VA-TOBACCO USE WI 30 MIN OF WAKEUP [facility] Apr 20, 2018 11:40 AM VA-TOBACCO USER EVERY DAY [facility] Mar 13, 2018 01:55 PM CURRENT TOBACCO USER [facility] Mar 13, 2018 01:55 PM CURRENT TOBACCO US ER (NOT READY TO QUIT) [facility] Mar 13, 2018 01:55 PM TOBACCO CESSATION REFERRAL DECLINED [facility] Mar 13, 2018 01:55 PM TOBACCO MEDS OFFER ED BUT DECLINED [facility] Mar 13, 2018 01:55 PM TOBACCO USER OFFERED MEDS [facility] Oct 10, 2017 12:55 PM CURRENT TOBACCO USER [facility] Oct 10, 2017 12:55 PM CURRENT TOBACCO US ER (NOT READY TO QUIT) [facility] Oct 10, 2017 12:55 PM TOBACCO CESSATION REFERRAL DECLINED [facility] Oct 10, 2017 12:55 PM TOBACCO MEDS OFFER ED BUT DECLINED [facility] Oct 10, 2017 12:55 PM TOBACCO USER OFFERED MEDS [facility] Mar 28, 2017 09:10 AM CURRENT TOBACCO USER [facility] Jun 18, 2015 09:04 AM [facility] Jun 18, 2015 09:04 AM TOBACCO MEDS OFFER ED BUT DECLINED [facility] Jun 17, 2014 08:50 AM CURRENT TOBACCO USER [facility] Jun 17, 2014 08:50 AM TOBACCO MEDS OFFER ED BUT DECLINED [facility] May 02, 2013 02:15 PM CURRENT TOBACCO USER [facility] May 02, 2013 02:15 PM TOBACCO MEDS OFFER ED BUT DECLINED [facility] Apr 19, 2012 08:17 AM CURRENT TOBACCO USER [facility] Apr 19, 2012 08:17 AM TOBACCO MEDS OFFER ED BUT DECLINED [facility] February 09, 2011 07:45 AM CURRENT TOBACCO USER [facility] February 09, 2011 07:45 AM TOBACCO MEDS OFFER ED BUT DECLINED [facility] Advance Directives: All historical and current Section Date Range: From patient's date of to the date document was created. This section includes ALL of a patient's completed or amended VA Advance and Rescinded Directives. The entries below indicate that a directive exists for the patient, but an actual copy is not included with this document. The data comes from all [place] facilities. Date Advance Directives Provider Source Mar 17, 2011 ADVANCE DIRECTIVE DISCUSSION JADE MARTINEZ [facility] Encounter Notes: All associated encounter notes This section contains the clinical notes associated to the Encounter. Date/Time Encounter Note(s) Provider Source Aug 21, 2024 08:38 AM ACCOUNTING OF DISC LOSURES NOTE: LOCAL TITLE: STATE PRESCRIPTION DRUG MONITORING PROGRAM STANDARD TITLE: ACCOUNTING OF DISCLOSURES NOTE DATE OF NOTE: AUG 21, 2024@08:38:31 ENTRY DATE: AUG 21, 2024@08:38:31 AUTHOR: LAVERN AWAD EXP COSIGNER: URGENCY: STATUS: COMPLETED This PDMP query was submitted by Lavern Awad REWARDS CONSULTANT. The clinical justification for this PDMP query is to review controlled substances prescribed outside of the VA, and any additional information that may become available, as an important component of standard clinical care, and in accordance with [facility] policy. Patient information was shared with the PDMP [employer] [place]. Prescription(s) filled outside the VA in the last 90 days are noted. However, they do not raise significant safety concerns and do not influence the treatment plan at this time. /ervin Awad DNP, APRN, FNP-C Primary Care Nurse Practitioner Signed: 08/21/2024 08:38 LAVERN AWAD TAINA [facility] May 14, 2024 04:30 PM ACCOUNTING OF [...] standard clinical care, and in accordance with [facility] policy. [facility] [place]. No prescription(s) for controlled substances outside the VA were found in the last 90 days. /ervin Awad DNP, APRN, FNP-C Primary Care Nurse Practitioner Signed: 05/14/2024 16:30 LAVERN AWAD TAINA [facility] Apr 09, 2024 07:48 PM ACCOUNTING OF DISC LOSURES NOTE: LOCAL TITLE: [facility] PRESCRIPTION DRUG MONITORING PROGRAM STANDARD TITLE: ACCOUNTING [...] standard clinical care, and in accordance with [facility] policy. Patient information was shared with the [facility] [employer] [place]. No prescription(s) for controlled substances outside the VA were found in the last 90 days. /ervin Awad DNP, APRN, FNP-C Primary Care Nurse Practitioner Signed: 04/09/2024 19:48 LAVERN AWAD TAINA [facility] Mar 30, 2024 09:36 AM PRIMARY CARE NOTE: LOCAL TITLE: PRIMARY CARE PROVIDER ESTABLISHED VISIT ST STANDARD TITLE: PRIMARY CARE NOTE DATE OF NOTE: MAR 30, 2024@09:36 ENTRY DATE: MAR 30, 2024@09:36:10 AUTHOR: LAVERN AWADIGNER: URGENCY: STATUS: COMPLETED REASON FOR VISIT/CHIEF COMPLAINT: Evaluation and management of chronic medical conditions/ My scheduled visit HPI: Patient is a 73 year old WHITE MALE who presents to the clinic for evaluation and management of chronic medical conditions. Patient denies any recent ED visits or hospitalizations. Patient goes by Will. Patient reports fell February 2024 with being seen at [facility]. Patient reports being diagnosed with a bruise tailbone and is using pillows with improvement of the pain. Private providers: -Patient prefers for private PCP to manage his primary care, reports obtains certain medications at the MS due to cost. -Private PCP Dr. Cassandra Delgado. #HLD: -Medication: Atorvastatin and FENOFIBRATE. -Reports compliance with medication regimen. -Denies any new onset of myalgias. #Peripheral neuropathy: -Medication: Lyrica. -Reports medication compliance. -Patient requesting to have this renewed through the [place]. Patient reports he had to go to [...] the private sector. Patient was evaluated by [facility]. -Denies concerns today. #Lesion: -Located to right lower leg, is approx. the size of a quarter. -Patient reports his PCP is aware. -Patient reports he had this since 2019. #Tinnitus: -Chronic, stable. SOURCE(S) OF HISTORY: Patient PAST MEDICAL HISTORY: 1) Peripheral neuropathy (SNOMED CT 302864283) 2) Decreased vitamin B12 level (SNOMED CT 049293712) 3) Vitamin D deficiency (SNOMED CT 95026366) 4) Erectile dysfunction (SNOMED CT 169331541) 5) Hyperlipidemia 6) Gout 7) Posttraumatic stress [...] incontinence. Musculoskeletal/Extremitie s: Denies edema. Denies pain. 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 Psychology: [...] COVID-19 (PFIZER), MRNA, LNP-S, * 1 11/01/2020 [facility]* <C> INFLUENZA, UNSPECIFIED FORMULATI* [facility] PNEUMOCOCCAL CONJUGATE PCV 13 08/18/2015 [facility] PNEUMOCOCCAL POLYSACCHARIDE [id number] 03/03/2016 [facility]* TDAP 05/04/2018 No Site <C> TDAP 07/08/2008 [place] [facility] 11/10/2011 [facility]* Shingles recombinant: Reports having two dose series at [facility] in approx. 2020. ColoColonoscopy: Aged out per [...] per private PCP. PTSD: -Reviewed lifestyle modifications. -[place] crisis line and whole health contact information [...] side effects of prescribed medication and treatments. [place] verbalizes understanding and is in agreement with the plan of care. Patient was instructed to keep all scheduled appointments and contact salesperson floor coverings for any additional problems. 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 Handwritten corrections, additions and/or deletions were made to the list, as appropriate. Corrected Outpatient Medication List was provided to the patient/caregiver. Assess Statin Use - Lipids (CVD/DM): The patient is still taking the NON-VA statin medication as documented. Screen for Abd Aortic Aneurysm: The patient declines to undergo ultrasound to screen for possible abdominal aortic aneurysm. /lidia/ Lavern Awad DNP, SCRAP IRON CUTTER, CREDIT ADVISOR-C Primary Care Nurse Practitioner Signed: 04/02/2024 16:08 LAVERN AWAD [facility] Mar 30, 2024 09:22 AM NURSING NOTE: LOCAL TITLE: V15 PACT FACE TO FACE NOTE STL STANDARD TITLE: NURSING NOTE DATE OF NOTE: MAR 30, 2024@09:22 ENTRY DATE: MAR 30, 2024@09:22:54 AUTHOR: SRIKANTH BOO COSIGNER: URGENCY: STATUS: COMPLETED Provider Visit: Patient [...] concerns. Review that after hours nurse line [phone] and emergency room are available 25/04 for patient use. Contact verbalized good understanding. Information forwarded to PCP Ritesh for intervention. /lidia/ SRIKANTH BOO REGISTERED NURSE Signed: 03/30/2024 09:27 SRIKANTH BOO [facility]
--- OUTSIDE RECORDS SUMMARY | 2024-12-20 14:29 | XMS_ITS | Encounter Summary ---
Author Name [facility] Organization [facility] Address [address] [place] [address] Care Team Providers Care Optics Test Technician Name Role Phone LAVERN AWAD Primary Care [...] Name Patient's Relationship to Policy [place] [employer] [facility] (WNR) MEDICARE ADVANTAGE [facility] (WNR) Oct 03, 2022 [id number] [id number] Sunita DESIR PATIENT Selected Encounter This section includes the information on record at [facility] for the Encounter. Date/Time Encounter Type Encounter Description Reason Provider Source Sep 17, 2024 11:00 AM COMPRE OPH EXAM EST PT 1/> OPTOMETRY ICD-10-CM H25.11 Age-related nuclear cataract, right eye GEMMA MARIE Encounter Template Text not used by [place] Assessments - Encounter Diagnoses This section includes the primary and secondary diagnoses documented for the Encounter. Date/Time Primary/Secondary Diagnosis Diagnosis Name Provider Source Sep 17, 2024 11:41 AM PRIMARY Age-related nuclear cataract, right eye GEMMA MARIE [facility] Sep 17, 2024 11:41 AM SECONDARY Other disorders of refraction GEMMA MARIE [facility] Sep 17, 2024 11:41 AM SECONDARY Other secondary cataract, left eye GEMMA MARIE [facility] Sep 17, 2024 11:41 AM SECONDARY Presence of intraocular lens GEMMA MARIE [facility] Sep 17, 2024 11:41 AM SECONDARY Puckering of macula, bilateral GEMMA MARIE [facility] Plan of Treatment: Future Appointments (+ 6 months) and Future Tests (+/- 45 days) The Plan of Treatment section includes future care activities for the patient from all [place] treatmentfacilities. This section includes future appointments and future orders which are active, pending or scheduled. Future Appointments This section includes appointments that were scheduled to occur 6 months from the date of the Encounter, up to a maximum of 20 appointments. The data comes from all [place] treatment facilities. Appointment Date/Time Appointment Type Appointme nt Facility Name Oct 11, 2024 10:30 AM AMBULATORY - MEDICINE [facility] Lab Results: +/- 30 days of the encounter This section includes the Chemistry and Hematology Lab Results on record with [facility] for the patient. Radiology Reports and Pathology Reports are provided separately, in subsequent sections. Lab Results This section contains the Chemistry/Hematology Results that were resulted 30 days before or 30 daysafter the date of the Encounter. Date/Time Source Result Type Result - Unit Interpretation Reference Range Comment Oct 16, 2024 09:03 AM [facility] URINE DRUG SCREEN (STL) Specimen Type: URINE [...] Oct 11, 2024 10:37 AM Reporting Lab: [facility] [id number] Performing Lab: [address] [address] ETHANOL 63 mg/dL H 0-9 AMPHET/METHAMPHE T AMINE Negative ng/mL COCAINE METABOLITES Negative ng/mL BENZODIAZEPINES (STL) Negative ng/mL CANNABINOIDS Negative ng/mL METHADONE Negative ng/mL OPIATES Negative ng/mL CREATININE URINE/OTHERS 71.9 mg/dL 63-166 OXYCODONE (KVMVW-LUG-XI) Negative ng/mL BUPRENORPHINE (STL-PB-MA) Negative ng/mL FENTANYL (STL) Negative ng/mL Social History: Smoking Status (Most current) and Tobacco Use (All prior to encounter date) This section includes the most current, and the historical, smoking and tobacco- related health factors from the [place] facility where the Encounter took place. Current Smoking Status This section includes the most current smoking, or tobacco-related health factor, from the [place] facility where the Encounter took place. Date/Time Current Smoking Status Comment Facil ity Mar 04, 2021 09:00 AM VA-TOBACCO USER EVERY DAY [facility] Tobacco Use History This section includes a history of the smoking, or tobacco-related health factors, that were collected on or before the date of the Encounter. The data comes from the [place] facility where the Encounter took place. Date/Time Smoking Status/Tobacco Use Comment F acility Mar 04, 2021 09:00 AM VA-TOBACCO USE > 1 5 LESS THAN 30 YEARS [facility] Mar 04, 2021 09:00 AM VA-TOBACCO USE ADVICE [facility] Mar 04, 2021 09:00 AM VA-TOBACCO USE B[place] NO [facility] Mar 04, 2021 09:00 AM VA-TOBACCO USE MED NO [facility] Mar 04, 2021 09:00 AM VA-TOBACCO USER EVERY DAY [facility] Jan 23, 2020 02:53 PM VA-TOBACCO DOESNT USE WI 30 MIN WAKEUP [facility] Jan 23, 2020 02:53 PM VA-TOBACCO USE 5 TO 15 YEARS [facility] Jan 23, 2020 02:53 PM VA-TOBACCO USE ADVICE [facility] Jan 23, 2020 02:53 PM VA-TOBACCO USE [place] NO [facility] Jan 23, 2020 02:53 PM VA-TOBACCO USE MED NO [facility] Jan 23, 2020 02:53 PM VA-TOBACCO USER EVERY DAY [facility] Mar 14, 2017 09:01 AM CURRENT TOBACCO USER [facility] Mar 14, 2017 09:01 AM TOBACCO MEDS OFFER ED BUT DECLINED [facility] May 31, 2016 10:12 AM CURRENT TOBACCO USER [facility] May 31, 2016 10:12 AM TOBACCO MEDS OFFER ED BUT DECLINED [facility] Advance Directives: All historical and current Section Date Range: From patient's date of to the date document was created. This section includes ALL of a patient's completed or amended [place] Advance and Rescinded Directives. The entries below indicate that a directive exists for the patient, but an actual copy is not included with this document. The data comes from all [place] facilities. Date Advance Directives Provider Source Mar 17, 2011 ADVANCE DIRECTIVE DISCUSSION JADE MARTINEZ [facility] Encounter Notes: All associated encounter notes This section contains the clinical notes associated to the Encounter. Date/Time Encounter Note(s) Provider Source Oct 04, 2024 12:45 PM ADDENDUM: LOCAL TITLE: Addendum STANDARD TITLE: ADDENDUM DATE OF NOTE: OCT 04, 2024@12:45:32 ENTRY DATE: OCT 04, 2024@12:45:33 AUTHOR: LAVERN AWAD COSIGNER: URGENCY: STATUS: COMPLETED Given has obtained the Pregabalin in the private sector after discussed with to not do this on 03/30/24 as this is against [place] policy this provider will not renew Pregabalin at this time. [place] obtained the Pregabalin at [facility] in [place] 08/23/24, despite telling the RNCM that he did not 10/04/24. Recommend discuss his request further with his private PCP given he is unable to adhere to VA policy. RNCM please notify . Thank you! /lidia/ Lavern Awad DNP, INSTRUMENT REPAIR SUPERVISOR, LASTING FLOORWORKER-C Primary Care Nurse Practitioner Signed: 10/04/2024 12:50 [...] standard clinical care, and in accordance with [facility] policy. Patient information was shared with the PDMP [employer] [place]. Prescription(s) filled outside the VA are noted [...] 03/30/24. Thank you! /lidia/ Lavern Awad DNP, INSTRUMENT REPAIR SUPERVISOR, LASTING FLOORWORKER-C Primary Care Nurse Practitioner Signed: 09/27/2024 12:12 [...] also said the prescription was called to [facility] in [place], but he did not pick-up a bottle from [facility] in [place] He said he wants to get all the pregabalin from VA, but have the non-VA prescription as back-up when the VA screws up. I reminded him of [place] policy-- controlled medicines to come from one source. /lidia/ SRIKANTH BOO REGISTERED NURSE Signed: 10/04/2024 08:52 10/04/2024 ADDENDUM STATUS: COMPLETED [facility] in [place] contacted. Mr. Desir filled prescription there August 23, 2024. /lidia/ SRIKANTH BOO REGISTERED NURSE Signed: 10/04/2024 09:02 Receipt Acknowledged By: 10/04/2024 12:45 /lidia/ Lavern Awad DNP, APRN, FNP-C Primary Care Nurse Practitioner 10/04/2024 ADDENDUM STATUS: UNSIGNED You may not VIEW this UNSIGNED Addendum. LAVERN AWAD [facility] Oct 04, 2024 09:01 AM ADDENDUM: LOCAL TITLE: Addendum STANDARD TITLE: ADDENDUM DATE OF NOTE: OCT 04, 2024@09:01:38 ENTRY DATE: OCT 04, 2024@09:01:38 AUTHOR: SRIKANTH BOO EXP COSIGNER: URGENCY: STATUS: COMPLETED [facility] in [place] contacted. Mr. Desir filled prescription there August 23, 2024. /ervin BOO REGISTERED NURSE Signed: 10/04/2024 09:02 Receipt Acknowledged By: 10/04/2024 12:45 /ervin Awad DNP, APRN, CAREY-C Primary Care Nurse Practitioner === --- Original Document --- 09/27/24 STATE PRESCRIPTION DRUG MONITORING PROGRAM: This PDMP query was submitted by Lavern Awad NP. The clinical justification for this PDMP query is to review controlled substances prescribed outside of the VA, and any additional information that may become available, as an important component of standard clinical care, and in accordance with [facility] policy. [facility] [place]. Prescription(s) filled outside the VA are noted [...] 03/30/24. Thank you! /lidia/ Lavern Awad DNP, INSTRUMENT REPAIR SUPERVISOR, LASTING FLOORWORKER-C Primary Care Nurse Practitioner Signed: 09/27/2024 12:12 Receipt Acknowledged By: 10/04/2024 08:44 /lidia/ SRIKANTH OBO REGISTERED NURSE 10/04/2024 ADDENDUM STATUS: COMPLETED Mr [...] also said the [facility] was [facility] [place], but he did not pick-up a bottle from [facility] in [place] He said he wants to get all the pregabalin from VA, but have the non-VA prescription as back-up when the VA screws up. I reminded him of VA policy-- controlled medicines to come from one source. /lidia/ SRIKANTH BOO REGISTERED NURSE Signed: 10/04/2024 08:52 SRIKANTH BOO [facility] Sep 27, 2024 12:09 PM ACCOUNTING OF DISC LOSURES NOTE: LOCAL TITLE: STATE PRESCRIPTION DRUG MONITORING PROGRAM STANDARD TITLE: ACCOUNTING OF DISCLOSURES NOTE DATE OF NOTE: SEP 27, 2024@12:09:24 ENTRY DATE: SEP 27, 2024@12:09:24 AUTHOR: LAVERN AWAD COSIGNER: URGENCY: STATUS: COMPLETED [facility] PRESCRIPTION DRUG MONITORING PROGRAM Has ADDENDA This PDMP query was submitted by Lavern Awad SAFETY NET MAKER. The clinical justification for this PDMP query is to review controlled substances prescribed outside of the [facility], and any additional information that may become available, as an important component of standard clinical care, and in accordance with [facility] policy. Patient information was shared with the PDMP [employer] [place]. Prescription(s) filled outside the VA are noted [...] appointment 03/30/24. Thank you! /ervin Awad DNP, INSTRUMENT REPAIR SUPERVISOR, LASTING FLOORWORKER-C Primary Care Nurse Practitioner Signed: 09/27/2024 12:12 [...] also said the prescription was called to [facility] in [place], but he did not pick-up a bottle from [facility] in [place] He said he wants to get all the pregabalin from VA, but have the non-VA prescription as back-up when the VA screws up. I reminded him of VA policy-- controlled medicines to come from one source. /lidia/ SRIKANTH BOO REGISTERED NURSE Signed: 10/04/2024 08:52 10/04/2024 ADDENDUM STATUS: COMPLETED [facility] in [place] contacted. Mr. Desir filled prescription there August 23, 2024. /lidia/ SRIKANTH BOO REGISTERED NURSE Signed: 10/04/2024 09:02 Receipt Acknowledged By: 10/04/2024 12:45 /lidia/ Lavern Awad DNP, APRN, LASTING FLOORWORKER-C Primary Care Nurse Practitioner 10/04/2024 ADDENDUM STATUS: COMPLETED Given has obtained the Pregabalin in the private sector after discussed with to not do this on 03/30/24 as this is against VA policy this provider will not renew Pregabalin at this time. [place] obtained the Pregabalin at [facility] in [place] 08/23/24, despite telling the RNCM that he did not 10/04/24. Recommend discuss his request further with his private PCP given he is unable to adhere to VA policy. RNCM please notify . Thank you! /ervin Awad DNP, APRN, LASTING FLOORWORKER-C Primary Care Nurse Practitioner Signed: 10/04/2024 12:50 Receipt Acknowledged By: 10/04/2024 15:45 /lidia/ Joseph Perry Rn, BSN REGISTERED NURSE 10/04/2024 ADDENDUM STATUS: COMPLETED the pt states that he was out of the medicine and his fill was not yet arrive so he went to his private pcp and got a order and pick it up at [facility] he stated that medicine was for emergency for when the VA and the provider fucks up he will have a supply and wants to get all his medicine from the VA. provider made aware /lidia/ Joseph Perry Rn, BSN REGISTERED NURSE Signed: 10/04/2024 15:48 10/11/2024 ADDENDUM STATUS: COMPLETED This provider contacted [facility] in [place]. picked up a 30 day supply of Pregabalin (90 quantity) on March 24 and August 23 2024. /lidia/ Lavern Awad DNP, APRN, LASTING FLOORWORKER-C Primary Care Nurse Practitioner Signed: 10/11/2024 09:10 LAVERN AWAD [facility] Sep 17, 2024 11:03 AM OPTOMETRY NOTE: LOCAL TITLE: OPTOMETRY NOTE STANDARD TITLE: OPTOMETRY NOTE DATE OF NOTE: SEP 17, 2024@11:03 ENTRY DATE: SEP 17, 2024@11:03:04 AUTHOR: GEMMA MARIE COSIGNER: URGENCY: STATUS: COMPLETED Last seen: 09/14/2023 [...] no change from problem & medication lists [facility] Problem list, medications and allergies reviewed: [facility] Serology for Diabetes GLUCOSE 86 mg/dL 03/31/2023 [...] W/PT; PT EXPRESSED FULL UNDERSTANDING. RTO 12mo/PRN: KAHLIL /lidia/ Gemma Marie, OD Staff Physician, Optometry Signed: 09/17/2024 11:41 GEMMA MARIE [facility]
--- OUTSIDE RECORDS SUMMARY | 2024-12-20 14:29 | XMS_ITS | Continuity of Care Document ---
Author Organization [facility] Address [address] [place] [address] Phone Care Team Providers Care Lead Security Officer Name Role Phone Driss Singh Unavailable Unavailable Advance Directives Directive Yes / No Effective Date File Name No Information Encounters Encounter Description Practice Location Reason(s) For Visit Diagnoses Date Provider Providers Copied on Encounter [facility], [address], [place], [place], [id number], [place] tel:[phone] [facility] No Information [address] , [address], [place], [address], [place]. tel:[phone] Family History Family Member Type Diagnosis Age At Onset No Information Payers Payer name Insurance type Covered republican ID Authoriza tion(s) No Information Social History [...]
--- OUTSIDE RECORDS SUMMARY | 2024-12-20 14:29 | XMS_ITS | Clinical Summary ---
Author Organization [facility] Address [address] [place] [address] Care Team Providers Care Juice Packaging Machines Setter Name Role Phone Cassandra Mathis Primary Care Provider [phone] Encounters Date Type Department Care Team Description 11/28/2024 12:48 PM PHARMACIST TECHNICIAN - 11/28/2024 11:59 PM PHARMACIST TECHNICIAN Hospital Encounter [facility] [address] [place] [address] Wyatt Pate MD Discharge Disposition: Home or Self Care (Routine Discharge) 11/28/2024 Travel from Last 3 Months Social History Tobacco Use Types Packs/Day Years Used Date Smoking Tobacco: Never Assessed Sex and Gender Information Value Date Recorded Sex Assigned at Male 11/05/2024 12:02 PM PHARMACIST TECHNICIAN Legal Sex Male 10:33 AM PHARMACIST TECHNICIAN Gender Identity Not on file Sexual Orientation Not on file Plan of Treatment Health Maintenance Due Date Last Done Comments Hepatitis C 1968 Annual Medicare Wellness Visit 2013 RSV Immunization or 60+ Years (1 - 1-dose 75+ series) 2023 DTaP, Tdap and Td Vaccines (4 - Td or Tdap) 05/04/2028 05/04/2018, 05/04/2018, 07/08/2008 Zoster Vaccines Completed 11/23/2021, 07/03, 11/10/2011 Pneumococcal Vaccine: 65+ Years Completed 07/12/2022, 07/15/2021, 03/03/2016, Additional history exists COVID-19 Vaccine Completed 07/11/2024, , 02/05/2022, Additional history exists Influenza Adult Completed 07/11/2024, 10/2022, 06/03/2020, Additional history exists Meningococcal B Vaccine Aged Out No l onger eligible based on patient's age to complete this topic Meningococcal Vaccine Aged Out No teofilo josh eligible based on patient's age to complete this topic RSV Immunizations Under 20 Months Aged Out No longer eligible based on patient's age to complete this topic Procedures Procedure Name Priority Date/Time Associated Diagnosis Comments MRI CERV SPINE WO CON Routine 11/28/2024 1:57 PM PHARMACIST TECHNICIAN Neck pain from Last 3 Months Results * MRI CERV SPINE WO CON (11/28/2024 1:57 PM PHARMACIST TECHNICIAN) Anatomical Region Laterality Modality Spine Magnetic Resonan ce 11/30/2024 8:33 AM PHARMACIST TECHNICIAN Impressions 11/30/2024 8:39 AM PHARMACIST TECHNICIAN IMPRESSION: 1. Moderate to severe central canal stenosis at C5/C6 with slight indentation of the ventral cord due to a small left paracentral disc/osteophyte complex and short pedicles. Mild to moderate central canal stenosis at C2/C3, C3/C4 and C4/C5. No cord signal abnormality. 2. Severe neuroforaminal stenosis on the left at C3/C4 and C4/C5. 3. Straightening of the normal cervical lordosis may be positional or due to muscle spasm. No acute osseous abnormality. Referred By: WYATT PATE Interpreted By: Bong Goncalves MD, 11/30/2024 8:33 AM Narrative 11/30/2024 8:39 AM PHARMACIST TECHNICIAN [facility] [address] [place] [address] EXAMINATION:MRI cervical spine without contrast 11/28/24 INDICATION:Chronic neck pain TECHNIQUE: Multiplanar multisequence or imaging cervical spine was performed without intravenous contrast. COMPARISON: None FINDINGS:There is straightening of the normal cervical lordosis with preservation of vertebral body heights and disc spaces. Bone marrow signal is within normal limits with no acute fracture or dislocation. Partially visualized intracranial contents are unremarkable. The cervical spinal cord is unremarkable in course caliber and signal. No prevertebral edema. No paraspinal mass or fluid collection Flow voids are noted within the carotid vertebral arteries. No stenosis at the foramen magnum or C1/C2 level. The pedicles are developmentally short producing a narrow central canal and neural foramina at baseline. C2/C3: Small broad-based midline disc protrusion, uncovertebral arthropathy and facet arthropathy causing mild to moderate central canal stenosis and mild bilateral foraminal stenosis. Thecal sac measures 7 mm C3/C4: Disc space narrowing, disc bulging, uncovertebral arthropathy and facet arthropathy causing mild to moderate central canal stenosis, severe left neural foraminal stenosis and mild right neural foraminal stenosis. The thecal sac measures 7 mm C4/C5: Disc space narrowing with small broad-based midline disc protrusion, uncovertebral arthropathy and facet arthropathy causing mild to moderate central canal stenosis and severe left neural foraminal stenosis. Thecal sac measures 7 mm C5/C6: Disc space narrowing with a small left paracentral disc/osteophyte complex, uncovertebral arthropathy and facet arthropathy causing moderate to severe central canal stenosis with slight indentation the ventral cord and mild right neural foraminal stenosis. The thecal sac measures 6 mm. C6/C7: Negative C7/T1: Negative. Procedure Note Bong Goncalves MD - 11/30/2024 [facility] [address] [facility] [place] [address] EXAMINATION:MRI cervical spine without contrast 11/28/24 INDICATION:Chronic neck pain TECHNIQUE: Multiplanar multisequence or imaging cervical spine wasperformed without intravenous contrast. COMPARISON: None FINDINGS:There is straightening of the normal cervical lordosis withpreservation of vertebral body heights and disc spaces. Bone marrowsignal is within normal limits with no acute fracture or dislocation. Partially visualized intracranial contents are unremarkable. The cervicalspinal cord is unremarkable in course caliber and signal. No prevertebraledema. No paraspinal mass or fluid collection Flow voids are noted within the carotid vertebral arteries. No stenosis at the foramen magnum or C1/C2 level. The pedicles aredevelopmentally short producing a narrow central canal and neural foraminaat baseline. C2/C3: Small broad-based midline disc protrusion, uncovertebralarthropathy and facet arthropathy causing mild to moderate central canalstenosis and mild bilateral foraminal stenosis. Thecal sac measures 7mm C3/C4: Disc space narrowing, disc bulging, uncovertebral arthropathy andfacet arthropathy causing mild to moderate central canal stenosis, severeleft neural foraminal stenosis and mild right neural foraminal stenosis.The thecal sac measures 7 mm C4/C5: Disc space narrowing with small broad-based midline discprotrusion, uncovertebral arthropathy and facet arthropathy causing mildto moderate central canal stenosis and severe left neural foraminalstenosis. Thecal sac measures 7 mm C5/C6: Disc space narrowing with a small left paracentral disc/osteophytecomplex, uncovertebral arthropathy and facet arthropathy causing moderateto severe central canal stenosis with slight indentation the ventral cordand mild right neural foraminal stenosis. The thecal sac measures 6 mm. C6/C7: Negative C7/T1: Negative. IMPRESSION: 1. Moderate to severe central canal stenosis at C5/C6 with slightindentation of the ventral cord due to a small left paracentraldisc/osteophyte complex and short pedicles. Mild to moderate centralcanal stenosis at C2/C3, C3/C4 and C4/C5. No cord signal abnormality. 2. Severe neuroforaminal stenosis on the left at C3/C4 and C4/C5. 3. Straightening of the normal cervical lordosis may be positional or dueto muscle spasm. No acute osseous abnormality. Referred By: WYATT PATE Interpreted By: Bong Goncalves MD, 11/30/2024 8:33 AM Wyatt Pate MD MRI Final Resu lt from Last 3 Months Insurance AETNA [facility] Care Teams Juice Packaging Machines Setter Relationship Specialty Start Date End Date Cassandra Mathis DO [address] [place], [place] [address] PCP - General FAMILY PRACTICE 12/09/22
--- OUTSIDE RECORDS SUMMARY | 2024-12-20 14:29 | XMS_ITS | Encounter Summary ---
Author Organization [facility] Address [address] [place] [address] Care Team Providers Care Cheese Grader Name Role Phone Unavailable Primary Care Provider Unavailabl e Encounter Details Date Type Department Care Team (Late st Contact Info) Description 12/19/2024 External Device Data [facility] ABSTRACTION [...] on file Legal Sex Male 2:22 PM FORGE HELPER Gender Identity Not on file Sexual Orientation Not on file documented as of this encounter Plan of Treatment Not on file documented as of this encounter Visit Diagnoses Not on filedocumented in this encounter
--- NOTE | 2024-12-20 15:25 | ED_ITS ---
HPI - Weakness General Chief complaint: Weakness Stated complaint: No appetite, diarrhea, weakness Time Seen by Provider: 12/20/24 15:25 Source: patient and family Mode of arrival: ambulatory Limitations: no limitations History of Present Illness HPI Narrative: 74 YEARS OLD WHITE MALE CAME FROM HOME BY PRIVATE CAR WITH HIS IS TELLING ME THAT PATIENT BEEN CONFUSED OVER THE LAST 3 DAYS, POOR P.O. INTAKE, WEAK AND TIRED ALL OVER. SHE IS TELLING ME THAT PATIENT USED TO DRINK ALCOHOL DAILY, QUIT IT 4 DAYS AGO BECAUSE NOT FEELING WELL. PATIENT DENIES ANY FEVER OR CHILLS OR NAUSEA OR VOMITING OR ABDOMINAL PAIN OR CHEST PAIN OR SHORTNESS OF BREATH OR HEADACHE OR FOCAL NEURO DEFICIT. REPORTS THE PATIENT BEEN HAVING DIARRHEA OVER THE LAST FEW DAYS Related Data Home Medications ?Medication ?Instructions ?Recorded ?Confirmed ?Last Taken ?Type diclofenac sodium 75 mg 75 mg PO BID 04/16/24 08/20/24 Unknown History tablet,delayed release Allergies Allergy/AdvReac Type Severity Reaction Status Date / Time sertraline AdvReac Mild Diarrhea Verified 12/20/24 14:03 Review of Systems 2 Review of Systems: All systems reviewed & are unremarkable except as noted in HPI and below ROS unobtainable: Yes unobtainable due to mental status Constitutional: Constitutional: Reports fatigue and Reports weakness PMFSH Past Medical History Medical History Alcohol dependence Falls frequently Cerebrovascular disease TIA (transient ischemic attack) Tear of right rotator cuff Arthritis of right shoulder region BMI 23.0-23.9, adult Hypertension Gout Basal cell carcinoma Posttraumatic stress disorder Metabolic syndrome Idiopathic peripheral neuropathy Prediabetes Mixed hyperlipidemia Benign essential hypertension Rotator cuff tendonitis Surgical History Surgical History S/p reverse total shoulder arthroplasty (08/19/21) right History of appendectomy (~10/21/09) H/O colonoscopy (~06/2012) H/O colonoscopy (~04/2007) Hx of colonoscopy 2011 Family History Family History Other Family history of cardiovascular disease Family history of elevated blood lipids Social History Social History Social History: Caffeine-soda/tea Years smoked: 48 Smoking status: Current some day smoker Tobacco type: pipe Second hand tobacco smoke exposure: Yes Alcohol intake: current Drinks per week: 12 Substance use: never Substance use type: does not use Do You Feel Safe in your Home?: Yes Lack of Transportation: No Lack of Food: Never True Current Housing: I Have Housing Concerned About Future Housing: No Difficulty Paying Gas/Electric Bills: No Difficulty Paying for Meds: No Currently Unemployed: No Education: High School Diploma/GED Difficulty w/ Childcare or Family Care: No Living arrangements: with family 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on: retired Additional occupation/education comments: retired from [employer] Gender identity (if verbalized by the patient): Male Spiritual care concerns: No Exam 2 Narrative: GENERAL APPEARANCE: WELL-DEVELOPED, WELL-NOURISHED SKIN: NORMAL COLOR, FLUSHED FACE HEAD: NORMOCEPHALIC, NONTRAUMATIC EYES: CLEAR CONJUNCTIVA ENT: OROPHARYNX NORMAL, EARS NORMAL, NOSE NORMAL NECK: SUPPLE, NONTENDER CHEST AND RESPIRATORY: AIRWAY PATENT, NO RESPIRATORY DISTRESS, NO ACCESSORY MUSCLE USE HEART: REGULAR RATE/RHYTHM ABDOMEN: SOFT, NONTENDER, NO ORGANOMEGALY, QUIET BOWEL SOUNDS VASCULAR: NORMAL PERIPHERAL PULSES, NORMAL CAPILLARY REFILL. MUSCULOSKELETAL: NORMAL RANGE OF MOTION, NONTENDER BACK NEUROLOGIC: ALERT AND DISORIENTED TO THE YEAR AND SITUATION. Course Vital Signs Vital signs: Vital Signs Temperature 36.4 C 12/20/24 14:04 Pulse Rate 64 12/20/24 14:04 Respiratory Rate 16 12/20/24 14:04 Blood Pressure 127/67 12/20/24 14:04 Pulse Oximetry 100 12/20/24 14:04 Oxygen Delivery Room Air 12/20/24 14:04 Temperature 36.4 C 12/20/24 14:04 Pulse Rate 44 L 12/20/24 18:06 Respiratory Rate 16 12/20/24 18:06 Blood Pressure 117/70 12/20/24 18:06 Pulse Oximetry 100 12/20/24 18:06 Oxygen Delivery Room Air 12/20/24 14:04 MDM - Weakness MDM Narrative Medical decision making narrative: PATIENT CAME WITH CONFUSION, GENERAL WEAKNESS AND TIREDNESS,, diarrhea of unknown duration, STOP DRINKING ALCOHOL 4 DAYS AGO VITAL SIGNS ARE STABLE PHYSICAL EXAMINATION SHOWING PATIENT WITH FLUSHED FACE, DISORIENTED TO THE YEAR only DIFFERENTIAL DIAGNOSIS INCLUDE DEHYDRATION, ELECTROLYTE IMBALANCE, URINARY TRACT INFECTION, PNEUMONIA, HEPATIC ENCEPHALOPATHY, BLOOD WORKUP TODAY INCLUDES CBC, CMP, BLOOD CULTURE, LACTIC ACID, CRP SHOWED PLATELET COUNT OF 126, OTHERWISE WITHIN NORMAL LIMIT RESPIRATORY PANEL NEGATIVE FOR COVID FLU RSV CHEST X-RAY SHOWED NO ACUTE ABNORMALITY CT head without contrast showed no acute abnormalities EKG SHOWED SINUS BRADYCARDIA AT 47 BEATS PER MINUTE WITH FIRST-DEGREE HEART BLOCK, INFERIOR MYOCARDIAL INFARCTION, PROBABLY OLD, History of peripheral neuropathy, patient requested pregabalin 150 mg once which he could not take at home prior to arrival to the ED Urinalysis showed Patient did not experience any diarrhea since arrival to the emergency room until the time of discharge. Differential Diagnosis Differential diagnosis: Likely other (As above) Lab Data 12/20/24 15:43 12/20/24 15:43 Labs: Lab Results 12/20/24 12/20/24 12/20/24 Range/Units 15:43 16:16 16:48 WBC 4.0 L (4.5-10.0) K/mm3 RBC 3.81 L (4.6-6.20) M/mm3 Hgb 12.6 L (14.0-18.0) g/dL Hct 36.5 L (42.0-52.0) % MCV 95.8 (80-100) fl MCH 33.1 (26-34) pg MCHC 34.5 (32-36) g/dl RDW 14.3 (11.5-14.5) % Plt Count 126 L (150-375) k/mm3 MPV 10.2 (7.4-10.4) fl Immature Gran % (Auto) 0.5 (0-0.5) % Neut % (Auto) 60.1 (45.5-73.1) % Lymph % (Auto) 27.8 (18.3-44.2) % [place] % (Auto) 9.1 H (2.6-8.5) % Eos % (Auto) 2.0 (0-4.4) % Baso % (Auto) 0.5 (0.2-1.2) % Lymph # (Auto) 1.10 (0.9-3.2) K/mm3 [place] # (Auto) 0.4 (0.1-0.6) K/mm3 Eos # (Auto) 0.1 (0-0.3) K/mm3 Baso # (Auto) 0.0 (0.0-0.1) K/mm3 Abs Immat Gran (auto) 0.02 (0.00-0.031) K/mm3 Absolute Neuts (auto) 2.4 (1.3-6.7) K/mm3 Absolute Nucleated RBC 0.000 (0.0-0.012) K/mm3 Nucleated RBC % 0.0 (0.0-0.2) % PT 14.0 (11.1-14.7) Seconds INR 1.1 APTT 28.3 (22.3-36.8) Seconds Sodium 136 L (137-145) mmol/L Potassium 3.9 (3.4-5.0) mmol/L Chloride 102 (98-107) mmol/L Carbon Dioxide 26 (22-30) mmol/L Anion Gap 8 (4-12) mmol/L BUN 19 (9-20) mg/dL Creatinine 0.87 (0.7-1.3) mg/dL Estim Creat Clear Calc 62 ml/min Estimated GFR > 60 (59 - ) Glucose 92 (65-110) mg/dL Lactic Acid 0.9 (0.7-2.0) mmol/L Calcium 9.1 (8.4-10.2) mg/dL Total Bilirubin 1.3 (0.2-1.3) mg/dL AST 26 (17-59) U/L ALT 16 (6-50) U/L Alkaline Phosphatase 45 (38-126) U/L Ammonia Pending C-Reactive Protein < 0.5 (<1.0) mg/dL Total Protein 8.0 (6.3-8.2) g/dL Albumin 4.5 (3.5-5.1) g/dL Influenza A (RT-PCR) Negative (Negative) Influenza B (RT-PCR) Negative (Negative) RSV (RT-PCR) Negative (Negative) SARS-CoV-2 RNA (RT-PCR) Negative (Negative) Imaging Data Radiologist's impression: Impressions Chest X-Ray 12/20/24 15:40 IMPRESSION: No acute cardiopulmonary pathology. Head CT 12/20/24 18:29 Impression: No acute intracranial hemorrhage or suspicious mass effect. Inflammatory sinus disease ECG Data EKG #1: Attestation: I personally reviewed and interpreted this ECG as follows: ECG completion date: 12/20/24 Interpretation: SINUS BRADYCARDIA AT 47 BEATS PER MINUTE, FIRST-DEGREE HEART BLOCK, INFERIOR MYOCARDIAL INFARCTION OF INDETERMINATE AGE Critical Care Time Critical Care Time Critical Care Time: No Discharge Plan Discharge Clinical Impression: Diarrhea, Weakness Patient Disposition: Home, Self-Care Condition: Stable Instructions: Weakness (ED) Additional Instructions: Return if symptoms are worsening , call your family physician for appointment, take Tylenol as as needed for aches and pain, continue home medications. Patient Language: Omani Prescriptions: No Action atorvastatin 20 mg tablet 40 mg PO QHS Qty: 90 1RF aspirin [Nash Low Dose Aspirin] 81 mg tablet,delayed release (DR/EC) 81 mg PO DAILY Qty: 90 6RF clopidogrel [Plavix] 75 mg tablet 75 mg PO DAILY Qty: 90 1RF diclofenac sodium 75 mg tablet,delayed release (DR/EC) 75 mg PO BID Rx Instructions: TAKE 1 TABLET BY MOUTH TWICE DAILY atorvastatin 40 mg tablet 40 mg PO QHS Qty: 90 3RF pregabalin 150 mg capsule 150 mg PO TID Qty: 90 5RF allopurinol 300 mg tablet See Rx Instructions .ROUTE .COMPLEX Qty: 90 0RF Dose Instruction: TAKE 1 TABLET BY MOUTH DAILY Rx Instructions: TAKE 1 TABLET BY MOUTH DAILY fenofibrate 54 mg tablet See Rx Instructions .ROUTE .COMPLEX Qty: 90 0RF Dose Instruction: TAKE 1 TABLET BY MOUTH DAILY Rx Instructions: TAKE 1 TABLET BY MOUTH DAILY Follow-up/Referrals: Cassandra Mathis DO [Primary Care Provider] -
--- NOTE | 2024-12-20 15:26 | ECG_ITS ---
Test Date: 2024-12-20 16:05:18 Measurements Intervals [place] Rate: 47 P: 43 AK: 222 QRS: -19 QRSD: 79 T: 14 QT: 437 QTc: 390 Interpretive Statements SINUS BRADYCARDIA WITH FIRST DEGREE AV BLOCK INFERIOR MYOCARDIAL INFARCTION , PROBABLY OLD [40+ ms Q WAVE AND/OR ST/T ABNORMALITY IN II/aVF] Compared to ECG 04/16/2024 17:18:45 First degree AV block now present Myocardial infarct finding now present Electronically Signed On 12-21-2024 18:22:37 CDT by Carolina Matthews M.D.
--- OUTSIDE RECORDS SUMMARY | 2024-12-20 15:42 | XMS_ITS | Clinical Summary ---
Author Organization [facility] Address [address] [place] [address] Care Team Providers Care Coin Box Inspector Name Role Phone Cassandra Mathis DO Primary Care Provider [phone] Allergies No known active allergies Medications allopurinoL [...] (07/21/2021): Added automatically from request for surgery [id number] Immunizations Immunization Administration Dates Next Due Enerkem SARS-CoV-2 Monovalent Vaccination (12+ Yrs) PURPLE 07/17/2021,11/22/2020,11/01/2020 [...] Comments Blood Pressure 108/58 08/20/2021 8:35 AM HAT BRIM CURLER Pulse 74 08/20/2021 8:35 AM HAT BRIM CURLER Temperature 36.7 C (98 F) 08/20/2021 8:35 AM HAT BRIM CURLER Respiratory Rate 18 08/20/2021 8:35 AM HAT BRIM CURLER Oxygen Saturation 98% 08/20/2021 8:35 AM HAT BRIM CURLER Inhaled Oxygen Concentration - - Weight 76.9 kg (169 lb 8 oz) 08/19/2021 5:55 AM HAT BRIM CURLER Height 177.8 cm (5' 10 ) 08/19/2021 5:55 AM HAT BRIM CURLER Body Mass Index 24.32 08/19/2021 5:55 AM HAT BRIM CURLER Plan of Treatment Health Maintenance Due Date [...] 03/03/2016, 08/03 Medical Devices Implanted Type Area Cable Television Line Technician Device Identifier Shelf Expiration Date Model / Serial / Lot [employer] [id number] Tornier Aequalis Perform 15mm Press Fit Long Post Shoulder - [id number] - [id number] Implanted:Qty : 1 on 08/19/2021 by Mina Washington MD at [facility] Other - see comments Right: Shoulder [employer] [id number] 04/22/2026 [id number] / [id number] / [employer] [id number] Tornier Aequalis Perform 25mm Lateralize Augment Reverse Shoulder - [id number] - [id number] Implanted:Qty : 1 on 08/19/2021 by Mina Washington MD at [facility] Other - see comments Right: Shoulder [employer] [id number] 06/15/2026 [id number] / [id number] / [employer] [id number] Tornier Aequalis Perform 39mm Reverse Shoulder Standard Sphere - [id number] - [id number] Implanted:Qty : 1 on 08/19/2021 by Mina Washington MD at [facility] Other - see comments Right: Shoulder [employer] [id number] 06/22/2026 [id number] / [id number] / [employer] [id number] Insert Perform 10 Deg [id number] - [id number] - [id number] Implanted:Qty : 1 on 08/19/2021 by Mina Washington MD at [facility] Other - see comments Right: Shoulder [employer] [id number] 01/14/2026 [id number] / [id number] / [employer] [id number] Stem Perform Sz 3 Humeral - Sna - [id number] Implanted:Qty : 1 on 08/19/2021 by Mina Washington MD at [facility] Other - see comments Right: Shoulder [employer] [id number] / NA / [employer] [id number] Aequalis Perform Reversed 5mm 34mm Peripheral Glenoid Screw - [id number] Implanted:Qty : 2 on 08/19/2021 by Mina Washington MD at [facility] Screw Right: Shoulder [employer] [id number] / / Insurance [facility] HMO REF [facility] MEDICARE OOS Member Subscriber Plan / Payer (Ef fective 2021-Present) Name:Chung Mueller Relation to Subscriber:Self Name:Chung Mueller Payer ID:[id number] (NAIC) Type:MEDICARE RISK OTHER Address: [address] MEDICARE [place] [facility] [place]ARE [place] [facility] AD[facility]ANTRA Advance Directives For more information, please contact: [phone] * Full Code (Latest Code Status on File) Date Activated Date Inactivated Comments 08/19/2021 11:07 AM 08/20/2021 3:42 PM Care Teams Coin Box Inspector Relationship Specialty Start Date End Date Cassandra Mathis DO PCP - General Family Medicine 02/10/21
--- OUTSIDE RECORDS SUMMARY | 2024-12-20 15:42 | XMS_ITS | Encounter Summary ---
Author Organization [facility] Address 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
--- OUTSIDE RECORDS SUMMARY | 2024-12-20 15:42 | XMS_ITS | Clinical Summary ---
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 Gender Identity Not on file Sexual Orientation Not on file Last Filed Vital Signs Vital Sign Reading Time Taken Comments Blood Pressure 109/70 09/06/2024 9:25 AM DOCTOR OF MEDICINE Pulse 60 09/06/2024 9:25 AM DOCTOR OF MEDICINE Temperature 36.7 C (98 F) 09/06/2024 9:25 AM DOCTOR OF MEDICINE Respiratory Rate 16 09/06/2024 9:25 AM DOCTOR OF MEDICINE Oxygen Saturation 99% 09/06/2024 9:25 AM DOCTOR OF MEDICINE Inhaled Oxygen Concentration - - Weight 74.4 kg (164 lb) 09/06/2024 9:25 AM DOCTOR OF MEDICINE Height 177.8 cm (5' 10 ) 09/06/2024 9:25 AM DOCTOR OF MEDICINE Body Mass Index 23.53 09/06/2024 9:25 AM DOCTOR OF MEDICINE Plan of Treatment Health Maintenance Due Date [...] Completed 03/03/2016 , 08/18/2015 Insurance [employer] O [facility]
--- OUTSIDE RECORDS SUMMARY | 2024-12-20 15:42 | XMS_ITS | Clinical Summary ---
Author Organization [facility] Address [address] [place] [address] Care Team Providers Care Sap Hana Architect Name Role Phone Cassandra Mathis Primary Care Provider [phone] Encounters Date Type Department Care Team Description 11/28/2024 12:48 PM PUBLIC WORKS INSPECTOR - 11/28/2024 11:59 PM PUBLIC WORKS INSPECTOR Hospital Encounter [facility] [address] [place] [address] Wyatt Pate MD Discharge Disposition: Home or Self Care (Routine Discharge) 11/28/2024 Travel from Last 3 Months Social History Tobacco Use Types Packs/Day Years Used Date Smoking Tobacco: Never Assessed Sex and Gender Information Value Date Recorded Sex Assigned at Male 11/05/2024 12:02 PM PUBLIC WORKS INSPECTOR Legal Sex Male 10:33 AM PUBLIC WORKS INSPECTOR Gender Identity Not on file Sexual Orientation [...] SPINE WO CON Routine 11/28/2024 1:57 PM PUBLIC WORKS INSPECTOR Neck pain from Last 3 Months Results * MRI CERV SPINE WO CON (11/28/2024 1:57 PM PUBLIC WORKS INSPECTOR) Anatomical Region Laterality Modality Spine Magnetic Resonan ce 11/30/2024 8:33 AM PUBLIC WORKS INSPECTOR Impressions 11/30/2024 8:39 AM PUBLIC WORKS INSPECTOR IMPRESSION: 1. Moderate to severe central canal [...] 11/30/2024 8:33 AM Narrative 11/30/2024 8:39 AM PUBLIC WORKS INSPECTOR [facility] [address] [place] [address] EXAMINATION:MRI cervical spine without contrast 11/28/24 INDICATION:Chronic [...] Procedure Note Bong Goncalves MD - 11/30/2024 [facility] [address] [facility] [place] [address] EXAMINATION:MRI cervical spine without contrast 11/28/24 INDICATION:Chronic [...] lt from Last 3 Months Insurance [employer]ETNA [facility] Care Teams Sap Hana Architect Relationship Specialty Start Date End Date Cassandra Mathis DO [address] [place], [place] [address] PCP - General FAMILY PRACTICE 12/09/22
--- OUTSIDE RECORDS SUMMARY | 2024-12-20 15:42 | XMS_ITS | Continuity of Care Document ---
Author Name [facility] Organization [facility] Care Team Providers Care Spot Worker Name Role Phone [facility] Unavailable Unavailable Problems Combined list of problems from Department of Defense and [facility] facilities. It does not include entries that were removed or entered in error. Problem Status Onset Date Problem Type Date of Resolution Comments Source Transient cerebral ischemia Active 2 Condition [facility] Decreased vitamin B12 level (SNOMED CT 262354189) Active Condition [facility] Erectile dysfunction (SNOMED CT 781345614) Active Condition [facility] Gout Active Condition [facility] Hyperlipidemia Active Condition [facility] Peripheral neuropathy (SNOMED CT 053960496) Active Condition February 09, 2011 Entered By: JADE MARTINEZ A Comment: diagnosed about 3 years ago [facility] Posttraumatic stress disorder Active Condition [facility] Prediabetes Active Condition [facility] Skin eruption Active Condition 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 Medications Combined list of outpatient medications [...] DAY ORAL ACTIVE AWAD,SHE LBY R 2024 [facility] ASPIRIN 81MG TAB,EC TAKE ONE TABLET BY MOUTH ONCE A DAY ORAL ACTIVE RITESH,SHE LBY R 2024 [facility] ATORVASTATI N CA 80MG TAB TAKE ONE-HALF TABLET BY MOUTH EVERY EVENING ORAL ACTIVE AWAD,SHE LBY R 2024 [facility] CHOLECALCIF LASHAWN 50MCG (2,000UNIT) TAB TAKE TWO TABLETS BY MOUTH ONCE A DAY ORAL ACTIVE EZEKIEL MARTINEZ 2010 [facility] CLOPIDOGREL BISULFATE 75MG TAB TAKE ONE TABLET BY MOUTH ONCE A DAY ORAL ACTIVE AWAD,SHE LBY R 2024 [facility] CYANOCOBALA MIN 1000MCG TAB TAKE ONE TABLET BY MOUTH ONCE A DAY ORAL ACTIVE AWAD,SHE LBY R 2024 [facility] DICLOFENAC NA 75MG TAB,EC TAKE ONE TABLET BY MOUTH EVERY MORNING AND EVENING ORAL ACTIVE AWAD,SHE LBY R 2024 [facility] FENOFIBRATE TAB TAKE 54 MG BY MOUTH ONCE A DAY ORAL ACTIVE AWAD,SHE LBY R 2024 [facility] GARLIC OIL TAB,EC TAKE ONE TABLET BY MOUTH ORAL ACTIVE AWAD,SHE LBY R 2022 [facility] PREGABALIN 150MG CAP,ORAL TAKE ONE CAPSULE BY MOUTH THREE TIMES A DAY FOR NEUROPAT HIC PAIN. *MAY CAUSE DROWSINE SS* ORAL ACTIVE 12/26/2024 [id number] AWAD,SHE MCKENZIEY R 2024 90 [facility] PREGABALIN 150MG CAP,ORAL TAKE ONE CAPSULE BY MOUTH THREE TIMES A DAY FOR NEUROPAT HIC PAIN. *MAY CAUSE DROWSINE SS* ORAL DISCONT INUED 11/17/2024 [id number] 5 KELY AWAD R 2024 90 [facility] PREGABALIN 150MG CAP,ORAL TAKE ONE CAPSULE BY MOUTH THREE TIMES A DAY FOR NEUROPAT HIC PAIN. *MAY CAUSE DROWSINE SS* ORAL DISCONT INUED BY PROVIDE R 09/20/2024 [id number] 4 KELY AWAD R 2023 90 [facility] PREGABALIN 150MG CAP,ORAL TAKE ONE CAPSULE BY MOUTH THREE TIMES A DAY FOR NEUROPAT HIC PAIN. *MAY CAUSE DROWSINE SS* ORAL DISCONT INUED 07/25/2024 [id number] 4 RICKHayden UASH 2023 90 [facility] PREGABALIN 150MG CAP,ORAL TAKE ONE CAPSULE BY MOUTH THREE TIMES A DAY FOR NEUROPAT HIC PAIN. *MAY CAUSE DROWSINE SS* ORAL DISCONT INUED 06/13/2024 [id number] 4 KELY AWAD R 2023 90 [facility] PREGABALIN 150MG CAP,ORAL TAKE ONE CAPSULE BY MOUTH THREE TIMES A DAY FOR NEUROPAT HIC PAIN. *MAY CAUSE DROWSINE SS* ORAL DISCONT INUED 05/09/2024 [id number] 4 KELY AWAD R 2023 90 [facility] PREGABALIN 150MG CAP,ORAL TAKE ONE CAPSULE BY MOUTH THREE TIMES A DAY FOR NEUROPAT HIC PAIN. *MAY CAUSE DROWSINE SS* ORAL DISCONT INUED 01/21/2024 [id number] 4 KELY AWAD R 2023 90 [facility] PREGABALIN 150MG CAP,ORAL TAKE ONE CAPSULE BY MOUTH THREE TIMES A DAY FOR NEUROPAT HIC PAIN. *MAY CAUSE DROWSINE SS* ORAL DISCONT INUED 12/16/2023 [id number] 4 KELY AWAD R 2023 90 [facility] PREGABALIN 150MG CAP,ORAL TAKE ONE CAPSULE BY MOUTH THREE TIMES A DAY FOR NEUROPAT HIC PAIN. *MAY CAUSE DROWSINE SS* ORAL DISCONT INUED 11/03/2023 [id number] 4 KELY AWAD R 2023 90 [facility] SILDENAFIL CITRATE 100MG TAB TAKE ONE TABLET BY MOUTH EVERY WEEK NEEDED FOR ERECTILE DYSFUNCT ION (TAKE 60 MINUTES PRIOR TO SEXUAL ACTIVITY ) - LIMIT 6 DOSES PER 30 DAYS ORAL ACTIVE 03/31/2025 [id number] 4 KELY AWAD R 2023 18 [facility] SILDENAFIL CITRATE 100MG TAB TAKE ONE TABLET BY MOUTH EVERY WEEK NEEDED FOR ERECTILE DYSFUNCT ION (TAKE 60 MINUTES PRIOR TO SEXUAL ACTIVITY ) - LIMIT 6 DOSES PER 30 DAYS ORAL DISCONT INUED 04/06/2024 [id number] 3 KELY AWAD R 2022 18 [facility] Allergies, Adverse Reactions, Alerts Combined list of allergies from Department of Defense and Veterans Affairs facilities. It does not include entries that were removed or entered in error. Substance Category Reaction Severity Reaction type Status Date Reported Comments Source SERTRALINE Propensity to adverse reactions to drug (finding) Diarrhea active 6 [facility] Immunizations Combined list of available immunizations from the Department of Defense and Veterans Affairs facilities. Immunization Series Date Given Administered By Site Reaction Lot Number CVX Code Drug Automation Controls Expert Status Comments Source COVID-19 (PFIZER), MRNA, LNP-S, PF, ASHANTI-SUCROSE, 30 MCG/0.3 ML (AGES 12+ YEARS) 5 2023 309 complet ed [facility] N INFLUENZA, HIGH-DOSE, TRIVALENT, PF 1 2023 135 complet ed [facility] N COVID-19 (MODERNA), MRNA, LNP-S, PF, 50 MCG/0.5 ML (AGES 12+ YEARS) 1 2022 SANDRA RAMOS RIGHT DELTO ID [id number] 312 complet ed [facility] INFLUENZA, HIGH-DOSE, QUADRIVALENT, PF 1 2022 197 complet ed [facility] INFLUENZA, UNSPECIFIED FORMULATION 2022 88 complet ed [facility] N INFLUENZA, HIGH-DOSE, QUADRIVALENT, PF 1 2021 197 complet ed [facility] N PNEUMOCOCCAL POLYSACCHARID E PPV23 2 2021 33 complet ed [facility] (MODERNA), MRNA, LNP-S, PF, 100 MCG/0.5ML DOSE OR 50 MCG/0.25ML DOSE 3 2021 207 complet ed MOD; [id number]; 2 [facility] ZOSTER RECOMBINANT 2 2021 187 complet ed [facility] N COVID-19 (PFIZER), MRNA, LNP-S, PF, 30 MCG/0.3 ML DOSE 3 2020 208 complet ed PFR; [id number]; 1 [facility] PNEUMOCOCCAL POLYSACCHARID E PPV23 1 2020 33 complet ed [facility] N ZOSTER RECOMBINANT 1 2020 187 complet ed [facility] N INFLUENZA, HIGH-DOSE, QUADRIVALENT, PF 1 2020 197 complet ed [facility] N COVID-19 (PFIZER), MRNA, LNP-S, PF, 30 MCG/0.3 ML DOSE 2 2020 208 complet ed PFR; [id number]; 1 [facility] N COVID-19 (PFIZER), MRNA, LNP-S, PF, 30 MCG/0.3 ML DOSE 1 2020 208 complet ed PFR; [id number]; 1 [facility] INFLUENZA, HIGH-DOSE, QUADRIVALENT 2019 197 complet ed Partner: [facility]. Administe red by: [facility] Clinician (NPI=Not Provided) . Partner 7 Lot#: [id number] Mfr: sanofi pasteur; Dosage: [id number] ml [facility] INFLUENZA, UNSPECIFIED FORMULATION 2019 88 complet ed [facility] INFLUENZA, UNSPECIFIED FORMULATION 2018 88 complet ed [facility] INFLUENZA, TRIVALENT, ADJUVANTED 2018 168 complet ed Partner: [facility]. Administe red by: [facility] Clinician (NPI=Not Provided) . Partner 7 Lot#: [id number] Mfr: [employer] [facility] INFLUENZA, INJECTABLE, QUADRIVALENT, PRESERVATIVE FREE 2017 150 complet ed Partner: [facility]. Administe red by: [facility] Clinician (NPI=Not Provided) . Partner 7 Lot#: [id number] Mfr: [employer] [facility] INFLUENZA, SPLIT VIRUS, QUADRIVALENT, PF 2 2017 150 complet ed [facility] INFLUENZA, HIGH-DOSE, TRIVALENT, PF 1 2017 135 complet ed [facility] N TDAP 2017 115 complet ed Right Deltoid [facility] N TD (ADULT), 2 LF TETANUS TOXOID, PRESERVATIVE FREE, ADSORBED 1 2017 09 complet ed [facility] INFLUENZA, HIGH-DOSE, TRIVALENT, PF 1 2016 135 complet ed [facility] N INFLUENZA, UNSPECIFIED FORMULATION 2016 88 complet ed [facility] INFLUENZA, UNSPECIFIED FORMULATION 2015 88 complet ed [facility] NOVEL INFLUENZA-H1N 1-09, ALL FORMULATIONS 1 2015 128 complet ed [facility] PNEUMOCOCCAL POLYSACCHARID E PPV23 2015 33 complet ed [facility] PNEUMOCOCCAL CONJUGATE PCV 13 2014 133 complet ed [facility] INFLUENZA, UNSPECIFIED FORMULATION 2014 88 complet ed [facility] INFLUENZA, HIGH-DOSE, TRIVALENT, PF 1 2014 135 complet ed [facility] INFLUENZA, UNSPECIFIED FORMULATION 2013 88 complet ed [facility] INFLUENZA, UNSPECIFIED FORMULATION 2013 88 complet ed [facility] INFLUENZA, UNSPECIFIED FORMULATION 2012 88 complet ed [place] INFLUENZA, UNSPECIFIED FORMULATION 2012 88 complet ed [facility] INFLUENZA, UNSPECIFIED FORMULATION 2012 88 complet ed [facility] INFLUENZA, UNSPECIFIED FORMULATION 2011 88 complet ed [facility] ZOSTER LIVE 2011 121 complet ed [facility] INFLUENZA, UNSPECIFIED FORMULATION 2010 88 complet ed [facility] INFLUENZA, UNSPECIFIED FORMULATION 2010 88 complet ed [facility] INFLUENZA, UNSPECIFIED FORMULATION 2009 88 [...] its performance characteris tics confirmed by the [facility] laboratory thru method comparison with reference laboratory and medication chart review. The laboratory is regulated under CLIA as qualified to perform high-comple xity testing. Fentanyl is used for clinical purposes in conjunction with other laboratory tests. Ordering Provider: JAIME AWAD Report Released Date/Time: Oct 11, 2024 10:37 AM Reporting Lab: [facility] [address] [facility] [facility] [address] Performing Lab: [facility] [address] [facility] [facility] [address] [facility] URINE DRUG SCREEN (STL) AMPHETAMIN E [PRESENCE] IN URINE BY SCREEN METHOD Negative ng/mL 10/16 Specimen Type: URINE Comment: The cut-off value for Fentanyl was laboratory developed and its performance characteris tics confirmed by the [facility] laboratory thru method comparison with reference laboratory and medication chart review. The laboratory is regulated under CLIA as qualified to perform high-comple xity testing. Fentanyl is used for clinical purposes in conjunction with other laboratory tests. Ordering Provider: JAIME AWAD Report Released Date/Time: Oct 11, 2024 10:37 AM Reporting Lab: [facility] [address] [facility] [facility] [address] Performing Lab: [address] [address] [facility] URINE DRUG SCREEN (STL) BENZOYLECG ONINE [PRESENCE] IN URINE Negative ng/mL 10/16 Specimen Type: URINE Comment: The cut-off value for Fentanyl was laboratory developed and its performance characteris tics confirmed by the [facility] laboratory thru method comparison with reference laboratory and medication chart review. The laboratory is regulated under CLIA as qualified to perform high-comple xity testing. Fentanyl is used for clinical purposes in conjunction with other laboratory tests. Ordering Provider: JAIME AWAD Report Released Date/Time: Oct 11, 2024 10:37 AM Reporting Lab: [facility] [address] [facility] [address] Performing Lab: [facility] [address] [facility] [address] [facility] URINE DRUG SCREEN (STL) BENZODIAZE PINES [PRESENCE] IN URINE BY SCREEN METHOD Negative ng/mL 10/16 Specimen Type: URINE Comment: The cut-off value for Fentanyl was laboratory developed and its performance characteris tics confirmed by the [facility] laboratory thru method comparison with reference laboratory and medication chart review. The laboratory is regulated under CLIA as qualified to perform high-comple xity testing. Fentanyl is used for clinical purposes in conjunction with other laboratory tests. Ordering Provider: JAIME AWAD Report Released Date/Time: Oct 11, 2024 10:37 AM Reporting Lab: [facility] [address] [facility] [address] Performing Lab: [facility] [address] [facility] [facility] [address] [facility] URINE DRUG SCREEN (STL) CANNABINOI DS [PRESENCE] IN URINE BY SCREEN METHOD Negative ng/mL 10/16 Specimen Type: URINE Comment: The cut-off value for Fentanyl was laboratory developed and its performance characteris tics confirmed by the [facility] laboratory thru method comparison with reference laboratory and medication chart review. The laboratory is regulated under CLIA as qualified to perform high-comple xity testing. Fentanyl is used for clinical purposes in conjunction with other laboratory tests. Ordering Provider: JAIME AWAD Report Released Date/Time: Oct 11, 2024 10:37 AM Reporting Lab: [facility] [address] [facility] [address] Performing Lab: [facility] [address] [address] [facility] URINE DRUG SCREEN (STL) METHADONE [PRESENCE] IN URINE Negative ng/mL 10/16 Specimen Type: URINE Comment: The cut-off value for Fentanyl was laboratory developed and its performance characteris tics confirmed by the [facility] laboratory thru method comparison with reference laboratory and medication chart review. The laboratory is regulated under CLIA as qualified to perform high-comple xity testing. Fentanyl is used for clinical purposes in conjunction with other laboratory tests. Ordering Provider: JAIME AWAD Report Released Date/Time: Oct 11, 2024 10:37 AM Reporting Lab: [facility] [address] [facility] [address] Performing Lab: [facility] [address] [address] [facility] URINE DRUG SCREEN (STL) OPIATES [PRESENCE] IN URINE BY SCREEN METHOD Negative ng/mL 10/16 Specimen Type: URINE Comment: The cut-off value for Fentanyl was laboratory developed and its performance characteris tics confirmed by the [facility] laboratory thru method comparison with reference laboratory and medication chart review. The laboratory is regulated under CLIA as qualified to perform high-comple xity testing. Fentanyl is used for clinical purposes in conjunction with other laboratory tests. Ordering Provider: JAIME AWAD Report Released Date/Time: Oct 11, 2024 10:37 AM Reporting Lab: [place] [address] [facility] [address] Performing Lab: [place] [address] [address] [facility] URINE DRUG SCREEN (STL) CREATININE [MASS/VOLU ME] IN URINE 71.9 mg/dL 63 - 166 10/16 Specimen Type: URINE Comment: The cut-off value for Fentanyl was laboratory developed and its performance characteris tics confirmed by the [facility] laboratory thru method comparison with reference laboratory and medication chart review. The laboratory is regulated under CLIA as qualified to perform high-comple xity testing. Fentanyl is used for clinical purposes in conjunction with other laboratory tests. Ordering Provider: JAIME AWAD Report Released Date/Time: Oct 11, 2024 10:37 AM Reporting Lab: [facility] [address] [facility] [address] Performing Lab: [place] [address] [facility] [address] [facility] URINE DRUG SCREEN (STL) OXYCODONE CUTOFF [MASS/VOLU ME] IN URINE FOR SCREEN METHOD Negative ng/mL 10/16 Specimen Type: URINE Comment: The cut-off value for Fentanyl was laboratory developed and its performance characteris tics confirmed by the [facility] laboratory thru method comparison with reference laboratory and medication chart review. The laboratory is regulated under CLIA as qualified to perform high-comple xity testing. Fentanyl is used for clinical purposes in conjunction with other laboratory tests. Ordering Provider: JAIME AWAD Report Released Date/Time: Oct 11, 2024 10:37 AM Reporting Lab: [facility] [address] [facility] [address] Performing Lab: [address] [phone] [place] [address] URINE DRUG SCREEN (STL) BUPRENORPH INE [PRESENCE] IN URINE Negative ng/mL 10/16 Specimen Type: URINE Comment: The cut-off value for Fentanyl was laboratory developed and its performance characteris tics confirmed by the [facility] laboratory thru method comparison with reference laboratory and medication chart review. The laboratory is regulated under CLIA as qualified to perform high-comple xity testing. Fentanyl is used for clinical purposes in conjunction with other laboratory tests. Ordering Provider: JAIME AWAD Report Released Date/Time: Oct 11, 2024 10:37 AM Reporting Lab: [address] [address] Performing Lab: [phone] [place] [address] URINE DRUG SCREEN (STL) FENTANYL [PRESENCE] IN URINE Negative ng/mL 10/16 Specimen Type: URINE Comment: The cut-off value for Fentanyl was laboratory developed and its performance characteris tics confirmed by the [facility] laboratory thru method comparison with reference laboratory and medication chart review. The laboratory is regulated under CLIA as qualified to perform high-comple xity testing. Fentanyl is used for clinical purposes in conjunction with other laboratory tests. Ordering Provider: JAIME AWAD Report Released Date/Time: Oct 11, 2024 10:37 AM Reporting Lab: [address] [address] Performing Lab: [address] [address] [facility] METHADON E PANEL (STL) ETHANOL [MASS/VOLU ME] IN URINE 55-POSmg /dL 0 - 20 04/09 H Specimen Type: URINE Comment: The cut-off value for this test was laboratory developed and its performance characteris tics confirmed by the [facility] laboratory thru method comparison with reference laboratory and medication chart review. The laboratory is regulated under CLIA as qualified to perform high-comple xity testing. This test is used for clinical purposes in conjunction with other laboratory tests. Ordering Provider: JAIME AWAD Report Released Date/Time: Mar 30, 2024 09:55 AM Reporting Lab: [facility] [address] [facility] [address] Performing Lab: [address] [address] [facility] METHADON E PANEL (STL) AMPHETAMIN E [PRESENCE] IN URINE BY SCREEN METHOD Negative ng/mL 04/09 Specimen Type: URINE Comment: The cut-off value for this test was laboratory developed and its performance characteris tics confirmed by the [facility] laboratory thru method comparison with reference laboratory and medication chart review. The laboratory is regulated under CLIA as qualified to perform high-comple xity testing. This test is used for clinical purposes in conjunction with other laboratory tests. Ordering Provider: JAIME AWAD Report Released Date/Time: Mar 30, 2024 09:55 AM Reporting Lab: [facility] [address] [address] Performing Lab: [place] [address] [facility] [address] [facility] METHADON E PANEL (STL) BENZOYLECG ONINE [PRESENCE] IN URINE Negative ng/mL 04/09 Specimen Type: URINE Comment: The cut-off value for this test was laboratory developed and its performance characteris tics confirmed by the [facility] laboratory thru method comparison with reference laboratory and medication chart review. The laboratory is regulated under CLIA as qualified to perform high-comple xity testing. This test is used for clinical purposes in conjunction with other laboratory tests. Ordering Provider: JAIME AWAD Report Released Date/Time: Mar 30, 2024 09:55 AM Reporting Lab: [facility] [address] [address] Performing Lab: [facility] [address] [facility] [address] [facility] METHADON E PANEL (STL) BENZODIAZE PINES [PRESENCE] IN URINE BY SCREEN METHOD Negative ng/mL 04/09 Specimen Type: URINE Comment: The cut-off value for this test was laboratory developed and its performance characteris tics confirmed by the [facility] laboratory thru method comparison with reference laboratory and medication chart review. The laboratory is regulated under CLIA as qualified to perform high-comple xity testing. This test is used for clinical purposes in conjunction with other laboratory tests. Ordering Provider: JAIME AWAD Report Released Date/Time: Mar 30, 2024 09:55 AM Reporting Lab: [place] [address] [facility] [address] Performing Lab: [place] [address] [facility] [address] [facility] METHADON E PANEL (STL) CANNABINOI DS [PRESENCE] IN URINE BY SCREEN METHOD Negative ng/mL 04/09 Specimen Type: URINE Comment: The cut-off value for this test was laboratory developed and its performance characteris tics confirmed by the [facility] laboratory thru method comparison with reference laboratory and medication chart review. The laboratory is regulated under CLIA as qualified to perform high-comple xity testing. This test is used for clinical purposes in conjunction with other laboratory tests. Ordering Provider: JAIME AWAD Report Released Date/Time: Mar 30, 2024 09:55 AM Reporting Lab: [place] [address] [facility] [address] Performing Lab: [address] [address] [facility] METHADON E PANEL (STL) METHADONE [PRESENCE] IN URINE Negative ng/mL 04/09 Specimen Type: URINE Comment: The cut-off value for this test was laboratory developed and its performance characteris tics confirmed by the [facility] laboratory thru method comparison with reference laboratory and medication chart review. The laboratory is regulated under CLIA as qualified to perform high-comple xity testing. This test is used for clinical purposes in conjunction with other laboratory tests. Ordering Provider: JAIME AWAD Report Released Date/Time: Mar 30, 2024 09:55 AM Reporting Lab: [facility] [address] [facility] [address] Performing Lab: [facility] [address] [place] [phone] [facility] METHADON E PANEL (STL) OPIATES [PRESENCE] IN URINE BY SCREEN METHOD Negative ng/mL 04/09 Specimen Type: URINE Comment: The cut-off value for this test was laboratory developed and its performance characteris tics confirmed by the [facility] laboratory thru method comparison with reference laboratory and medication chart review. The laboratory is regulated under CLIA as qualified to perform high-comple xity testing. This test is used for clinical purposes in conjunction with other laboratory tests. Ordering Provider: JAIME AWAD Report Released Date/Time: Mar 30, 2024 09:55 AM Reporting Lab: [facility] [address] [place] [address] Performing Lab: [address] [address] [facility] METHADON E PANEL (STL) CREATININE [MASS/VOLU ME] IN URINE 98.8 mg/dL 63 - 166 04/09 Specimen Type: URINE Comment: The cut-off value for this test was laboratory developed and its performance characteris tics confirmed by the [facility] laboratory thru method comparison with reference laboratory and medication chart review. The laboratory is regulated under CLIA as qualified to perform high-comple xity testing. This test is used for clinical purposes in conjunction with other laboratory tests. Ordering Provider: JAIME AWAD Report Released Date/Time: Mar 30, 2024 09:55 AM Reporting Lab: [address] [address] Performing Lab: [address] [address] [facility] METHADON E PANEL (STL) OXYCODONE CUTOFF [MASS/VOLU ME] IN URINE FOR SCREEN METHOD Negative ng/mL 04/09 Specimen Type: URINE Comment: The cut-off value for this test was laboratory developed and its performance characteris tics confirmed by the [facility] laboratory thru method comparison with reference laboratory and medication chart review. The laboratory is regulated under CLIA as qualified to perform high-comple xity testing. This test is used for clinical purposes in conjunction with other laboratory tests. Ordering Provider: JAIME AWAD Report Released Date/Time: Mar 30, 2024 09:55 AM Reporting Lab: [facility] [address] [facility] [address] Performing Lab: [facility] [address] [facility] [address] [facility] METHADON E PANEL (STL) BUPRENORPH INE [PRESENCE] IN URINE Negative 04/09 Specimen Type: URINE Comment: The cut-off value for this test was laboratory developed and its performance characteris tics confirmed by the [facility] laboratory thru method comparison with reference laboratory and medication chart review. The laboratory is regulated under CLIA as qualified to perform high-comple xity testing. This test is used for clinical purposes in conjunction with other laboratory tests. Ordering Provider: JAIME AWAD Report Released Date/Time: Mar 30, 2024 09:55 AM Reporting Lab: [facility] [address] [facility] [address] Performing Lab: [facility] [address] [facility] [address] [facility] METHADON E PANEL (STL) FENTANYL [PRESENCE] IN URINE Negative ng/mL 04/09 Specimen Type: URINE Comment: The cut-off value for this test was laboratory developed and its performance characteris tics confirmed by the [facility] laboratory thru method comparison with reference laboratory and medication chart review. The laboratory is regulated under CLIA as qualified to perform high-comple xity testing. This test is used for clinical purposes in conjunction with other laboratory tests. Ordering Provider: JAIME AWAD Report Released Date/Time: Mar 30, 2024 09:55 AM Reporting Lab: [address] [address] Performing Lab: [facility] [address] [place] [phone] [facility] METHADON E PANEL (STL) ETHANOL [MASS/VOLU ME] IN URINE 28-POSmg /dL 0 - 20 09/30 H Specimen Type: URINE Comment: The cut-off value for this test was laboratory developed and its performance characteris tics confirmed by the [facility] laboratory thru method comparison with reference laboratory and medication chart review. The laboratory is regulated under CLIA as qualified to perform high-comple xity testing. This test is used for clinical purposes in conjunction with other laboratory tests. Ordering Provider: JAIME AWAD Report Released Date/Time: Aug 26, 2023 09:14 AM Reporting Lab: [address] [address] Performing Lab: [address] [phone] [place] [address] METHADON E PANEL (STL) AMPHETAMIN E [PRESENCE] IN URINE BY SCREEN METHOD Negative ng/mL 09/30 Specimen Type: URINE Comment: The cut-off value for this test was laboratory developed and its performance characteris tics confirmed by the [facility] laboratory thru method comparison with reference laboratory and medication chart review. The laboratory is regulated under CLIA as qualified to perform high-comple xity testing. This test is used for clinical purposes in conjunction with other laboratory tests. Ordering Provider: JAIME AWAD Report Released Date/Time: Aug 26, 2023 09:14 AM Reporting Lab: [address] [address] Performing Lab: [address] [address] [facility] METHADON E PANEL (STL) BENZOYLECG ONINE [PRESENCE] IN URINE Negative ng/mL 09/30 Specimen Type: URINE Comment: The cut-off value for this test was laboratory developed and its performance characteris tics confirmed by the [facility] laboratory thru method comparison with reference laboratory and medication chart review. The laboratory is regulated under CLIA as qualified to perform high-comple xity testing. This test is used for clinical purposes in conjunction with other laboratory tests. Ordering Provider: JAIME AWAD Report Released Date/Time: Aug 26, 2023 09:14 AM Reporting Lab: [facility] [address] [facility] [address] Performing Lab: [facility] [address] [facility] [address] [facility] METHADON E PANEL (STL) BENZODIAZE PINES [PRESENCE] IN URINE BY SCREEN METHOD Negative ng/mL 09/30 Specimen Type: URINE Comment: The cut-off value for this test was laboratory developed and its performance characteris tics confirmed by the [facility] laboratory thru method comparison with reference laboratory and medication chart review. The laboratory is regulated under CLIA as qualified to perform high-comple xity testing. This test is used for clinical purposes in conjunction with other laboratory tests. Ordering Provider: JAIME AWAD Report Released Date/Time: Aug 26, 2023 09:14 AM Reporting Lab: [facility] [address] [facility] [address] Performing Lab: [facility] [address] [facility] [address] [facility] METHADON E PANEL (STL) CANNABINOI DS [PRESENCE] IN URINE BY SCREEN METHOD Negative ng/mL 09/30 Specimen Type: URINE Comment: The cut-off value for this test was laboratory developed and its performance characteris tics confirmed by the [facility] laboratory thru method comparison with reference laboratory and medication chart review. The laboratory is regulated under CLIA as qualified to perform high-comple xity testing. This test is used for clinical purposes in conjunction with other laboratory tests. Ordering Provider: JAIME AWAD Report Released Date/Time: Aug 26, 2023 09:14 AM Reporting Lab: [facility] [address] [facility] [address] Performing Lab: [address] [address] [facility] METHADON E PANEL (STL) METHADONE [PRESENCE] IN URINE Negative ng/mL 09/30 Specimen Type: URINE Comment: The cut-off value for this test was laboratory developed and its performance characteris tics confirmed by the [facility] laboratory thru method comparison with reference laboratory and medication chart review. The laboratory is regulated under CLIA as qualified to perform high-comple xity testing. This test is used for clinical purposes in conjunction with other laboratory tests. Ordering Provider: JAIME AWAD Report Released Date/Time: Aug 26, 2023 09:14 AM Reporting Lab: [address] [address] Performing Lab: [address] [address] [facility] METHADON E PANEL (STL) OPIATES [PRESENCE] IN URINE BY SCREEN METHOD Negative ng/mL 09/30 Specimen Type: URINE Comment: The cut-off value for this test was laboratory developed and its performance characteris tics confirmed by the [facility] laboratory thru method comparison with reference laboratory and medication chart review. The laboratory is regulated under CLIA as qualified to perform high-comple xity testing. This test is used for clinical purposes in conjunction with other laboratory tests. Ordering Provider: JAIME AWAD Report Released Date/Time: Aug 26, 2023 09:14 AM Reporting Lab: [address] [address] Performing Lab: [address] [address] [facility] METHADON E PANEL (STL) CREATININE [MASS/VOLU ME] IN URINE 127.2 mg/dL 63 - 166 09/30 Specimen Type: URINE Comment: The cut-off value for this test was laboratory developed and its performance characteris tics confirmed by the [facility] laboratory thru method comparison with reference laboratory and medication chart review. The laboratory is regulated under CLIA as qualified to perform high-comple xity testing. This test is used for clinical purposes in conjunction with other laboratory tests. Ordering Provider: JAIME AWAD Report Released Date/Time: Aug 26, 2023 09:14 AM Reporting Lab: [facility] [address] [facility] [address] Performing Lab: [facility] [address] [place] [address] [facility] METHADON E PANEL (STL) OXYCODONE CUTOFF [MASS/VOLU ME] IN URINE FOR SCREEN METHOD Negative ng/mL 09/30 Specimen Type: URINE Comment: The cut-off value for this test was laboratory developed and its performance characteris tics confirmed by the [facility] laboratory thru method comparison with reference laboratory and medication chart review. The laboratory is regulated under CLIA as qualified to perform high-comple xity testing. This test is used for clinical purposes in conjunction with other laboratory tests. Ordering Provider: JAIME AWAD Report Released Date/Time: Aug 26, 2023 09:14 AM Reporting Lab: [address] [address] Performing Lab: [address] [address] [facility] METHADON E PANEL (STL) BUPRENORPH INE [PRESENCE] IN URINE Negative 09/30 Specimen Type: URINE Comment: The cut-off value for this test was laboratory developed and its performance characteris tics confirmed by the [facility] laboratory thru method comparison with reference laboratory and medication chart review. The laboratory is regulated under CLIA as qualified to perform high-comple xity testing. This test is used for clinical purposes in conjunction with other laboratory tests. Ordering Provider: JAIME AWAD Report Released Date/Time: Aug 26, 2023 09:14 AM Reporting Lab: [place] [address] [facility] [address] Performing Lab: [address] [address] [facility] METHADON E PANEL (STL) FENTANYL [PRESENCE] IN URINE Negative ng/mL 09/30 Specimen Type: URINE Comment: The cut-off value for this test was laboratory developed and its performance characteris tics confirmed by the [facility] laboratory thru method comparison with reference laboratory and medication chart review. The laboratory is regulated under CLIA as qualified to perform high-comple xity testing. This test is used for clinical purposes in conjunction with other laboratory tests. Ordering Provider: JAIME AWAD Report Released Date/Time: Aug 26, 2023 09:14 AM Reporting Lab: [address] [address] Performing Lab: [address] [place] [address] B12 COBALAMIN (VITAMIN B12) [MASS/VOLU ME] IN [...] Mar 30, 2023 04:37 PM Reporting Lab: [facility] [address] [place] [address] Performing Lab: [address] [address] [facility] CBC LEUKOCYTES [#/VOLUME] IN BLOOD BY AUTOMATED COUNT 3.9 10*3/uL 3.6 - 11.2 03/31 Specimen Type: BLOOD No comment entered. Ordering Provider: JAIME AWAD Report Released Date/Time: Mar 30, 2023 04:37 PM Reporting Lab: [facility] [address] [place] [address] Performing Lab: [address] [address] [facility] CBC ERYTHROCYT ES [#/VOLUME] IN BLOOD BY AUTOMATED COUNT 3.93 10*6/uL 4.10 - 5.70 03/31 L Specimen Type: BLOOD No comment entered. Ordering Provider: JAIME AWAD Report Released Date/Time: Mar 30, 2023 04:37 PM Reporting Lab: [address] [address] Performing Lab: [address] [address] [facility] CBC HEMOGLOBIN [MASS/VOLU ME] IN BLOOD 13.0 g/dL 13.1 - 16.8 03/31 L Specimen Type: BLOOD No comment entered. Ordering Provider: JAIME AWAD Report Released Date/Time: Mar 30, 2023 04:37 PM Reporting Lab: [address] [address] Performing Lab: [address] [phone] [place] [address] CBC HEMATOCRIT [VOLUME FRACTION] OF BLOOD 38.7 38.2 - 48.4 03/31 Specimen Type: BLOOD No comment entered. Ordering Provider: JAIME AWAD Report Released Date/Time: Mar 30, 2023 04:37 PM Reporting Lab: [address] [address] Performing Lab: [address] [address] [facility] CBC MCV [ENTITIC VOLUME] BY AUTOMATED COUNT 98.5 fL 80.0 - 100.0 03/31 Specimen Type: BLOOD No comment entered. Ordering Provider: JAIME AWAD Report Released Date/Time: Mar 30, 2023 04:37 PM Reporting Lab: [address] [address] Performing Lab: [address] [address] [facility] CBC MCH [ENTITIC MASS] BY AUTOMATED COUNT 33.1 pg 27.0 - 34.0 03/31 Specimen Type: BLOOD No comment entered. Ordering Provider: JAIME AWAD Report Released Date/Time: Mar 30, 2023 04:37 PM Reporting Lab: [address] [address] Performing Lab: [address] [address] [facility] CBC MCHC [MASS/VOLU ME] BY AUTOMATED COUNT 33.6 g/dL 33.0 - 36.0 03/31 Specimen Type: BLOOD No comment entered. Ordering Provider: JAIME AWAD Report Released Date/Time: Mar 30, 2023 04:37 PM Reporting Lab: [place] [address] Performing Lab: [address] [address] CBC PLATELETS [#/VOLUME] IN BLOOD BY AUTOMATED COUNT 169 10*3/uL 150 - 400 03/31 Specimen Type: BLOOD No comment entered. Ordering Provider: JAIME AWAD Report Released Date/Time: Mar 30, 2023 04:37 PM Reporting Lab: [address] [address] Performing Lab: [address] [address] CBC PLATELET MEAN VOLUME [ENTITIC VOLUME] IN BLOOD BY AUTOMATED COUNT 10.5 fL 7.5 - 11.2 03/31 Specimen Type: BLOOD No comment entered. Ordering Provider: JAIME AWAD Report Released Date/Time: Mar 30, 2023 04:37 PM Reporting Lab: [address] [address] Performing Lab: [address] [phone] [place] [address] CBC ERYTHROCYT E DISTRIBUTI ON WIDTH [RATIO] BY AUTOMATED COUNT 14.0 11.8 - 15.1 03/31 Specimen Type: BLOOD No comment entered. Ordering Provider: JAIME AWAD Report Released Date/Time: Mar 30, 2023 04:37 PM Reporting Lab: [facility] [address] [facility] [address] Performing Lab: [facility] [address] [facility] [address] [facility] CBC LYMPHOCYTE S/100 LEUKOCYTES IN BLOOD BY AUTOMATED COUNT 30 03/31 Specimen Type: BLOOD No comment entered. Ordering Provider: JAIME AWAD Report Released Date/Time: Mar 30, 2023 04:37 PM Reporting Lab: [facility] [address] [facility] [address] Performing Lab: [facility] [address] [place] [address] [facility] CBC MONOCYTES/ 100 LEUKOCYTES IN BLOOD BY AUTOMATED COUNT 11 03/31 Specimen Type: BLOOD No comment entered. Ordering Provider: JAIME AWAD Report Released Date/Time: Mar 30, 2023 04:37 PM Reporting Lab: [facility] [address] [place] [address] Performing Lab: [facility] [address] [facility] [address] [facility] CBC NEUTROPHIL S/100 LEUKOCYTES IN BLOOD BY AUTOMATED COUNT 52 03/31 Specimen Type: BLOOD No comment entered. Ordering Provider: JAIME AWAD Report Released Date/Time: Mar 30, 2023 04:37 PM Reporting Lab: [facility] [address] [facility] [address] Performing Lab: [facility] [address] [place] [address] [facility] CBC EOSINOPHIL S/100 LEUKOCYTES IN BLOOD BY AUTOMATED COUNT 6 03/31 Specimen Type: BLOOD No comment entered. Ordering Provider: JAIME AWAD Report Released Date/Time: Mar 30, 2023 04:37 PM Reporting Lab: [place] [address] [address] Performing Lab: [address] [address] [facility] CBC BASOPHILS/ 100 LEUKOCYTES IN BLOOD BY AUTOMATED COUNT 1 03/31 Specimen Type: BLOOD No comment entered. Ordering Provider: JAIME AWAD Report Released Date/Time: Mar 30, 2023 04:37 PM Reporting Lab: [address] [address] Performing Lab: [address] [address] [facility] CBC LYMPHOCYTE S [#/VOLUME] IN BLOOD BY AUTOMATED COUNT 1.17 10*3/uL 0.77 - 4.50 03/31 Specimen Type: BLOOD No comment entered. Ordering Provider: JAIME AWAD Report Released Date/Time: Mar 30, 2023 04:37 PM Reporting Lab: [address] [address] Performing Lab: [address] [address] [facility] CBC MONOCYTES [#/VOLUME] IN BLOOD BY AUTOMATED COUNT 0.42 10*3/uL 0.19 - 1.50 03/31 Specimen Type: BLOOD No comment entered. Ordering Provider: JAIME AWAD Report Released Date/Time: Mar 30, 2023 04:37 PM Reporting Lab: [address] [address] Performing Lab: [address] [address] [facility] CBC NEUTROPHIL S [#/VOLUME] IN BLOOD BY AUTOMATED COUNT 2.01 10*3/uL 2.10 - 8.00 03/31 L Specimen Type: BLOOD No comment entered. Ordering Provider: JAIME AWAD Report Released Date/Time: Mar 30, 2023 04:37 PM Reporting Lab: [address] [place] [address] Performing Lab: [address] [address] [facility] CBC EOSINOPHIL S [#/VOLUME] IN BLOOD BY AUTOMATED COUNT 0.23 10*3/uL 0.00 - 0.60 03/31 Specimen Type: BLOOD No comment entered. Ordering Provider: JAIME AWAD Report Released Date/Time: Mar 30, 2023 04:37 PM Reporting Lab: [address] [address] Performing Lab: [address] [address] [facility] CBC BASOPHILS [#/VOLUME] IN BLOOD BY AUTOMATED COUNT 0.02 10*3/uL 0.00 - 0.20 03/31 Specimen Type: BLOOD No comment entered. Ordering Provider: JAIME AWAD Report Released Date/Time: Mar 30, 2023 04:37 PM Reporting Lab: [address] [address] Performing Lab: [place] [id number] [place] [address] HGA1C HEMOGLOBIN A1C/HEMOGL OBIN.TOTAL IN BLOOD 5.1 4.0 - 6.0 03/31 Specimen Type: BLOOD Comment: The cut-off value for this test was laboratory developed and its performance characteris tics confirmed by the [facility] laboratory thru method comparison with reference laboratory and medication chart review. The laboratory is regulated under CLIA as qualified to perform high-comple xity testing. This test is used for clinical purposes in conjunction with other laboratory tests. Ordering Provider: JAIME AWAD Report Released Date/Time: Mar 30, 2023 04:37 PM Reporting Lab: [address] [address] Performing Lab: [address] [phone] [place] [address] LIPID PANEL (STL) CHOLESTERO L [MASS/VOLU ME] IN SERUM OR PLASMA 158 mg/dL 0 - 200 03/31 Specimen Type: PLASMA Comment: No hemolysis noted. Ordering Provider: JAIME AWAD Report Released Date/Time: Mar 30, 2023 04:37 PM Reporting Lab: [place] [address] [facility] [address] Performing Lab: [address] [address] [facility] LIPID PANEL (STL) TRIGLYCERI DE [MASS/VOLU ME] IN SERUM OR PLASMA 129 mg/dL 0 - 150 03/31 Specimen Type: PLASMA Comment: No hemolysis noted. Ordering Provider: JAIME AWAD Report Released Date/Time: Mar 30, 2023 04:37 PM Reporting Lab: [address] [address] Performing Lab: [address] [address] [facility] LIPID PANEL (STL) CHOLESTERO L IN LDL [MASS/VOLU ME] IN SERUM OR PLASMA BY RAO N 84 mg/dL 03/31 Specimen Type: PLASMA Comment: No hemolysis noted. Ordering Provider: JAIME AWAD Report Released Date/Time: Mar 30, 2023 04:37 PM Reporting Lab: [address] [address] Performing Lab: [address] [address] [facility] LIPID PANEL (STL) CHOLESTERO L IN HDL [MASS/VOLU ME] IN SERUM OR PLASMA 48 mg/dL 03/31 Specimen Type: PLASMA Comment: No hemolysis noted. Ordering Provider: JAIME AWAD Report Released Date/Time: Mar 30, 2023 04:37 PM Reporting Lab: [address] [address] Performing Lab: [address] [place] [address] [facility] METHADON E PANEL (STL) ETHANOL [MASS/VOLU ME] IN URINE Negative mg/dL 0 - 20 03/31 Specimen Type: URINE Comment: The cut-off value for this test was laboratory developed and its performance characteris tics confirmed by the [facility] laboratory thru method comparison with reference laboratory and medication chart review. The laboratory is regulated under CLIA as qualified to perform high-comple xity testing. This test is used for clinical purposes in conjunction with other laboratory tests. Ordering Provider: JAIME AWAD Report Released Date/Time: Mar 30, 2023 12:01 PM Reporting Lab: [place] [phone] Performing Lab: [address] [address] [facility] METHADON E PANEL (STL) AMPHETAMIN E [PRESENCE] IN URINE BY SCREEN METHOD Negative ng/mL 03/31 Specimen Type: URINE Comment: The cut-off value for this test was laboratory developed and its performance characteris tics confirmed by the [facility] laboratory thru method comparison with reference laboratory and medication chart review. The laboratory is regulated under CLIA as qualified to perform high-comple xity testing. This test is used for clinical purposes in conjunction with other laboratory tests. Ordering Provider: JAIME AWAD Report Released Date/Time: Mar 30, 2023 12:01 PM Reporting Lab: [address] [address] Performing Lab: [address] [address] [facility] METHADON E PANEL (STL) BENZOYLECG ONINE [PRESENCE] IN URINE Negative ng/mL 03/31 Specimen Type: URINE Comment: The cut-off value for this test was laboratory developed and its performance characteris tics confirmed by the [facility] laboratory thru method comparison with reference laboratory and medication chart review. The laboratory is regulated under CLIA as qualified to perform high-comple xity testing. This test is used for clinical purposes in conjunction with other laboratory tests. Ordering Provider: JAIME AWAD Report Released Date/Time: Mar 30, 2023 12:01 PM Reporting Lab: [facility] [address] [facility] [address] Performing Lab: [facility] [address] [facility] [address] [facility] [facility] E PANEL (STL) BENZODIAZE PINES [PRESENCE] IN URINE BY SCREEN METHOD Negative ng/mL 03/31 Specimen Type: URINE Comment: The cut-off value for this test was laboratory developed and its performance characteris tics confirmed by the [facility] laboratory thru method comparison with reference laboratory and medication chart review. The laboratory is regulated under CLIA as qualified to perform high-comple xity testing. This test is used for clinical purposes in conjunction with other laboratory tests. Ordering Provider: JAIME AWAD Report Released Date/Time: Mar 30, 2023 12:01 PM Reporting Lab: [place] [address] [facility] [address] Performing Lab: [place] [address] [facility] [address] [facility] METHADON E PANEL (STL) CANNABINOI DS [PRESENCE] IN URINE BY SCREEN METHOD Negative ng/mL 03/31 Specimen Type: URINE Comment: The cut-off value for this test was laboratory developed and its performance characteris tics confirmed by the [facility] laboratory thru method comparison with reference laboratory and medication chart review. The laboratory is regulated under CLIA as qualified to perform high-comple xity testing. This test is used for clinical purposes in conjunction with other laboratory tests. Ordering Provider: JAIME AWAD Report Released Date/Time: Mar 30, 2023 12:01 PM Reporting Lab: [place] [id number] [facility] [address] Performing Lab: [facility] [address] [facility] [address] [facility] METHADON E PANEL (STL) METHADONE [PRESENCE] IN URINE Negative ng/mL 03/31 Specimen Type: URINE Comment: The cut-off value for this test was laboratory developed and its performance characteris tics confirmed by the [facility] laboratory thru method comparison with reference laboratory and medication chart review. The laboratory is regulated under CLIA as qualified to perform high-comple xity testing. This test is used for clinical purposes in conjunction with other laboratory tests. Ordering Provider: JAIME AWAD Report Released Date/Time: Mar 30, 2023 12:01 PM Reporting Lab: [facility] [address] [facility] [address] Performing Lab: [place] [address] [facility] [address] [facility] METHADON E PANEL (STL) OPIATES [PRESENCE] IN URINE BY SCREEN METHOD Negative ng/mL 03/31 Specimen Type: URINE Comment: The cut-off value for this test was laboratory developed and its performance characteris tics confirmed by the [facility] laboratory thru method comparison with reference laboratory and medication chart review. The laboratory is regulated under CLIA as qualified to perform high-comple xity testing. This test is used for clinical purposes in conjunction with other laboratory tests. Ordering Provider: JAIME AWAD Report Released Date/Time: Mar 30, 2023 12:01 PM Reporting Lab: [place] [address] [facility] [address] Performing Lab: [place] [address] [facility] [address] [facility] METHADON E PANEL (STL) CREATININE [MASS/VOLU ME] IN URINE 61.4 mg/dL 63 - 166 03/31 L Specimen Type: URINE Comment: The cut-off value for this test was laboratory developed and its performance characteris tics confirmed by the [facility] laboratory thru method comparison with reference laboratory and medication chart review. The laboratory is regulated under CLIA as qualified to perform high-comple xity testing. This test is used for clinical purposes in conjunction with other laboratory tests. Ordering Provider: JAIME AWAD Report Released Date/Time: Mar 30, 2023 12:01 PM Reporting Lab: [facility] [address] [facility] [address] Performing Lab: [place] [address] [facility] [address] [facility] METHADON E PANEL (STL) OXYCODONE CUTOFF [MASS/VOLU ME] IN URINE FOR SCREEN METHOD Negative ng/mL 03/31 Specimen Type: URINE Comment: The cut-off value for this test was laboratory developed and its performance characteris tics confirmed by the [facility] laboratory thru method comparison with reference laboratory and medication chart review. The laboratory is regulated under CLIA as qualified to perform high-comple xity testing. This test is used for clinical purposes in conjunction with other laboratory tests. Ordering Provider: JAIME AWAD Report Released Date/Time: Mar 30, 2023 12:01 PM Reporting Lab: [address] [address] Performing Lab: [place] [address] [facility] [address] [facility] METHADON E PANEL (STL) BUPRENORPH INE [PRESENCE] IN URINE Negative 03/31 Specimen Type: URINE Comment: The cut-off value for this test was laboratory developed and its performance characteris tics confirmed by the [facility] laboratory thru method comparison with reference laboratory and medication chart review. The laboratory is regulated under CLIA as qualified to perform high-comple xity testing. This test is used for clinical purposes in conjunction with other laboratory tests. Ordering Provider: JAIME AWAD Report Released Date/Time: Mar 30, 2023 12:01 PM Reporting Lab: [place] [address] [facility] [address] Performing Lab: [address] [address] [facility] METHADON E PANEL (STL) FENTANYL [PRESENCE] IN URINE Negative ng/mL 03/31 Specimen Type: URINE Comment: The cut-off value for this test was laboratory developed and its performance characteris tics confirmed by the [facility] laboratory thru method comparison with reference laboratory and medication chart review. The laboratory is regulated under CLIA as qualified to perform high-comple xity testing. This test is used for clinical purposes in conjunction with other laboratory tests. Ordering Provider: JAIME AWAD Report Released Date/Time: Mar 30, 2023 12:01 PM Reporting Lab: [place] [address] [facility] [address] Performing Lab: [address] [address] [facility] URIC ACID URATE [MASS/VOLU ME] IN SERUM OR PLASMA 4.4 mg/dL 3.5 - 7.2 03/31 Specimen Type: PLASMA Comment: No hemolysis noted. Ordering Provider: JAIME AWAD Report Released Date/Time: Mar 30, 2023 04:37 PM Reporting Lab: [address] [address] Performing Lab: [address] [address] [facility] Vital Signs Combined list of inpatient and outpatient Vital Signs from Department of Defense and Veterans Affairs, ranging from 12 months to all on record, depending upon the facility. Vital Sign Value Date Comments Source SYSTOLIC BLOOD PRESSURE 122 10/11/2024 10:15:54 [facility] DIASTOLIC BLOOD PRESSURE 74 10/11/2024 10:15:54 [facility] PULSE OXIMETRY 100 10/11/2024 10:15:54 [facility] WEIGHT 161.2 10/11/2024 10:15:54 [facility] BMI 23 kg/m2 10/11/2024 10:15:54 [facility] PAIN 0 10/11/2024 10:15:54 [facility] TEMPERATURE 97.5 10/11/2024 10:15:54 [facility] PULSE 57 10/11/2024 10:15:54 [facility] RESPIRATION 18 10/11/2024 10:15:54 [facility] SYSTOLIC BLOOD PRESSURE 134 03/30/2024 09:14:54 [facility] DIASTOLIC BLOOD PRESSURE 80 03/30/2024 09:14:54 [facility] WEIGHT 160.1 03/30/2024 09:14:[address] [facility] BMI 23 kg/m2 03/30/2024 09:14:[address] [facility] PAIN 4 03/30/2024 09:14:[address] [facility] TEMPERATURE 98.1 03/30/2024 09:14:54 [facility] PULSE 96 03/30/2024 09:14:[address] [facility] RESPIRATION 20 03/30/2024 09:14:54 [facility] Encounters Combined list of: 1) Encounters from Department of [facility] facilities going backup to the last 18 months, not all VA inpatient encounters are included; 2) Encounters from the Department of [facility] facilities going backup to 280 months. Location Location Details Encounter Type Encounter Number Reason For Visit Attending Provider ADM Date DC Date Status Disposition Source [facility] Outpatient Encounter [id number] 07/19 [facility] Outpatient Encounter [id number] 07/28 [facility] OFFICE O/P EST MOD 30-39 MIN [id number] Diagnos is: ICD-10- CM H25.11 Age-rel ated nuclear catarac t, right eye MANSI RAMESH TTHEW C 09/14 [facility] HC PRO PHONE CALL 5-10 MIN [id number] NEVAEH RAMOS C 09/27 [facility] Outpatient Encounter [id number] 09/30 [facility] OFFICE O/P EST MOD 30-39 MIN [id number] Diagnos is: ICD-10- CM E78.5 Hyperli pidemia , unspeci JOSEPH Fan BY R 09/30 [facility] Outpatient Encounter [id number] 01/10 [facility] Outpatient Encounter [id number] ZACK HERNANDEZ 02/06 [facility] OFFICE O/P EST MOD 30 MIN [id number] Diagnos is: ICD-10- CM E78.5 Hyperli pidemia , unspeci JOSEPH Fan BY R 03/30 [facility] Outpatient Encounter [id number] 07/11 [facility] Outpatient Encounter [id number] 08/20 [facility] COMPRE [place]PH EXAM EST PT 1/ [id number] Diagnos is: ICD-10- CM H25.11 Age-rel ated nuclear catarac t, right eye АЛЕКСАНДР MILLIGAN R 09/[address] [facility] OFFICE O/P EST MOD 30 MIN [id number] Diagnos is: ICD-10- CM E78.5 Hyperli pidemia , unspeci JOSEPH Fan BY R 10/11 [facility] Outpatient Encounter [id number] 10/18 [facility] Outpatient Encounter [id number] 11/13 [facility] Outpatient Encounter [id number] 11/14 [facility] Outpatient Encounter [id number] ZACK HERNANDEZ L 11/15 [facility] Outpatient Encounter [id number] 11/26 [facility] Outpatient Encounter [id number] 11/26 [facility] Social History Combined list of available smoking, tobacco, and other social history from Department of Defense and Veterans Affairs facilities. Social History Type Response Date Comment Sour e Tobacco smoking status NHIS VA-TOBACCO NEVER USED CIGARETTES 10/11/2024 [facility] History of tobacco use VA-TOBACCO USE SOME DAYS OTHER TYPE 10/11/2024 [facility] History of tobacco use VA-TOBACCO USER EVERY DAY 09/27/2023 [facility] History of tobacco use VA-TOBACCO USER EVERY DAY 02/05/2022 [facility] History of tobacco use VA-TOBACCO USER EVERY DAY 03/04/2021 [facility] History of tobacco use 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 01/23/2020 [facility] History of tobacco use VA-TOBACCO USER EVERY DAY 04/20/2018 [facility] History of tobacco use TOBACCO USER OFFERED MEDS 03/13/2018 Kathryn [facility] History of tobacco use TOBACCO USER OFFERED MEDS 10/10/2017 [facility] History of tobacco use CURRENT TOBACCO USER 03/28/2017 [facility] History of tobacco use CURRENT TOBACCO USER 03/14/2017 Kathryn [facility] History of tobacco use CURRENT TOBACCO USER 05/31/2016 Kathryn [facility] History of tobacco use CURRENT TOBACCO USER 06/18/2015 [facility] History of tobacco use CURRENT TOBACCO USER 06/17/2014 [facility] History of tobacco use CURRENT TOBACCO USER 05/02/2013 [facility] History of tobacco use CURRENT TOBACCO USER 04/19/2012 [facility] History of tobacco use CURRENT TOBACCO USER 02/09/2011 [facility] Plan of Care List of future care activities from [facility] facilities. Additional future care activities may be listed in the Assessment and Plan section. Date/Time Care Activity Care Activity Detail Facili ty 04/19/2025 AMBULATORY - MEDICINE AMBULATORY - MEDICI NE [facility] Advance Directives List of completed, amended, or rescinded Advance Directives on record at [facility] facilities. An actual copy of the Directive is not included. Date Advance Directive Provider Source 03/17/2011 ADVANCE DIRECTIVE DISCUSSION JADE MARTINEZ [facility]
--- OUTSIDE RECORDS SUMMARY | 2024-12-20 15:42 | XMS_ITS | Continuity of Care Document ---
Author Organization [facility] Address [address] [place] [address] Phone Care Team Providers Care Motor Power Connector Name Role Phone Driss Singh Unavailable Unavailable Advance Directives Directive Yes / No Effective Date File Name No Information Encounters Encounter Description Practice Location Reason(s) For Visit Diagnoses Date Provider Providers Copied on Encounter [facility], [address], [place], [place], [id number], [place] tel:[phone] [facility] No Information [address] Doisy Edward. [address] , [address], [place], [address], [place]. tel:[phone] Family History Family Member Type Diagnosis Age [...]
--- OUTSIDE RECORDS SUMMARY | 2024-12-20 15:42 | XMS_ITS | Referral Summary ---
Author Organization [facility] Address [address] [place] [address] Care Team Providers Care Distribution Systems Superintendent Name Role Phone Cassandra Mathis DO Primary Care Provider [phone] Allergies No known active allergies Medications allopurinoL [...] (07/21/2021): Added automatically from request for surgery [id number] Immunizations Immunization Administration Dates Next Due LED Engin SARS-CoV-2 Monovalent Vaccination (12+ Yrs) PURPLE 07/17/2021,11/22/2020,11/01/2020 [...] Comments Blood Pressure 108/58 08/20/2021 8:35 AM [facility] [employer] Pulse 74 08/20/2021 8:35 AM [employer] Temperature 36.7 C (98 F) 08/20/2021 8:35 AM [employer] Respiratory Rate 18 08/20/2021 8:35 AM [employer] Oxygen Saturation 98% 08/20/2021 8:35 AM [employer] Inhaled Oxygen Concentration - - Weight 76.9 kg (169 lb 8 oz) 08/19/2021 5:55 AM [employer] Height 177.8 cm (5' 10 ) 08/19/2021 5:55 AM [employer] Body Mass Index 24.32 08/19/2021 5:55 AM [employer] Plan of Treatment Not on file Medical Devices Implanted Type Area Computer Information Systems Instructor Device Identifier Shelf Expiration Date Model / Serial / Lot [employer] [id number] Tornier Aequalis Perform 15mm Press Fit Long Post Shoulder - [id number] - [id number] Implanted:Qty : 1 on 08/19/2021 by Mina Washington MD at [facility] Other - see comments Right: Shoulder [employer] [id number] 04/22/2026 [id number] / [id number] / [employer] [id number] Tornier Aequalis Perform 25mm Lateralize Augment Reverse Shoulder - [id number] - [id number] Implanted:Qty : 1 on 08/19/2021 by Mina Washington MD at [facility] Other - see comments Right: Shoulder [employer] [id number] 06/15/2026 [id number] / [id number] / [employer] [id number] Tornier Aequalis Perform 39mm Reverse Shoulder Standard Sphere - [id number] - [id number] Implanted:Qty : 1 on 08/19/2021 by Mina Washington MD at [facility] Other - see comments Right: Shoulder [employer] [id number] 06/22/2026 [id number] / [id number] / [employer] [id number] Insert Perform 10 Deg [id number] - [id number] - [id number] Implanted:Qty : 1 on 08/19/2021 by Mina Washington MD at [facility] Other - see comments Right: Shoulder [employer] [id number] 01/14/2026 [id number] / [id number] / [employer] [id number] Stem Perform Sz 3 Humeral - Sna - [id number] Implanted:Qty : 1 on 08/19/2021 by Mina Washington MD at [facility] Other - see comments Right: Shoulder [employer] [id number] / [id number] / [employer] [id number] Aequalis Perform Reversed 5mm 34mm Peripheral Glenoid Screw - [id number] Implanted:Qty : 2 on 08/19/2021 by Mina Washington MD at [facility] Screw Right: Shoulder [employer] [id number] / / Insurance [facility] MDCR HMO [facility] Address: [address] [address] [place] [address] [facility] MEDICARE [place] [facility] [place] [facility] ADVANTRA Advance Directives For more information, please contact: [phone] * Full Code (Latest Code Status on File) Date Activated Date Inactivated Comments 08/19/2021 11:07 AM 08/20/2021 3:42 PM Care Teams Distribution Systems Superintendent Relationship Specialty Start Date End Date Cassandra Mathis DO PCP - General Family Medicine 02/10/21
[2024-12-20 15:56] LABS: Basophils Percent Auto 0.5 % (0.2-1.2); Eosinophils Absolute Auto 0.1 K/mm3 (0-0.3); Hematocrit 36.5 % (42.0-52.0); Hemoglobin 12.6 g/dL (14.0-18.0); Immature Granulocyte Absolute 0.02 K/mm3 (0.00-0.031); Immature Granulocyte Percent A 0.5 % (0-0.5); Lymphocytes Percent Auto 27.8 % (18.3-44.2); Mean Corpuscular HGB Conc 34.5 g/dl (32-36); Mean Corpuscular Hemoglobin 33.1 pg (26-34); Mean Corpuscular Volume 95.8 fl (80-100); Mean Platelet Volume 10.2 fl (7.4-10.4); Monocytes Absolute Auto 0.4 K/mm3 (0.1-0.6); Monocytes Percent Auto 9.1 % (2.6-8.5); Neutrophils Absolute Auto 2.4 K/mm3 (1.3-6.7); Neutrophils Percent Auto 60.1 % (45.5-73.1); Platelet Count Result 126 k/mm3 (150-375); Red Blood Count 3.81 M/mm3 (4.6-6.20); Red Cell Distribution Width 14.3 % (11.5-14.5)
[2024-12-20 16:08] LABS: Lactic Acid Reflex 0.9 mmol/L (0.7-2.0)
[2024-12-20 16:10] LABS: INR 1.1; Partial Thromboplastin Time 28.3 Seconds (22.3-36.8)
[2024-12-20 16:13] LABS: Alanine Aminotransferase 16 U/L (6-50); Albumin Level 4.5 g/dL (3.5-5.1); Alkaline Phosphatase 45 U/L (38-126); Anion Gap 8 mmol/L (4-12); Aspartate Amino Transferase 26 U/L (17-59); Bilirubin,Total 1.3 mg/dL (0.2-1.3); Blood Urea Nitrogen 19 mg/dL (9-20); CRP < 0.5 mg/dL (<1.0); Calcium 9.1 mg/dL (8.4-10.2); Carbon Dioxide 26 mmol/L (22-30); Chloride 102 mmol/L (98-107); Estimated CRCL calculation 62 ml/min; Estimated Glomerular Filt Rate > 60; Glucose 92 mg/dL (65-110); Potassium 3.9 mmol/L (3.4-5.0); Sodium 136 mmol/L (137-145)
[2024-12-20] MEDS: SODIUM CHLORIDE 0.9% IV 1,000 ML 999 ML IV CONT (16:28)
[2024-12-20 16:56] LABS: Influenza A QL RT-PCR Negative (Negative); Influenza B QL RT-PCR Negative (Negative); RSV RNA, RT-PCR Negative (Negative); SARS-CoV-2 RNA PCR Negative (Negative)
[2024-12-20] MEDS: PREGABALIN (*CRX) 75 MG CAPSULE 150 MG PO (19:20)
[2024-12-20 20:20] LABS: Add Urine Microscopic? YES; Appearance Urine Clear (Clear); Bilirubin Urine 1+ (Negative); Blood Urine Negative (Negative); Color Urine Dark Yellow (Yellow); Glucose Urine UA Negative (Negative); Ketones Urine Trace mg/dL (Negative); Leukocyte Esterase Ur Negative LEU/UL (Negative); Nitrate Urine Negative (Negative); Protein Urine Trace mg/dL (Negative); Specific Grav Ur 1.028 (1.001-1.035); pH Urine 5.5 (5.0-9.0)
[2024-12-20 20:46] LABS: Bacteria Urine Rare /hpf; Mucus Urine Few /lpf; RBC Urine 0-2 /hpf (0-2); Squamous Epithelial Cell Urine Rare /hpf (Few); WBC Urine 0-3 /hpf (0-3)
[2024-12-20 21:12] LABS: Ammonia < 9 umol/L (9-30)
== END 2024-12-20 22:10 | disposition home or self-care (01) ==
PROVIDERS: Emergency Provider Emergency Medicine; PCP Family Medicine
DX: R19.7 Diarrhea, unspecified (principal); R53.1 Weakness; R41.0 Disorientation, unspecified; Z86.73 Personal history of transient ischemic attack (TIA), and cerebral infarction without residual deficits; I10 Essential (primary) hypertension; E78.2 Mixed hyperlipidemia; F10.20 Alcohol dependence, uncomplicated; Z20.822 Contact with and (suspected) exposure to COVID-19
CPT/HCPCS: 36415; 70450; 71045; 80053; 81001; 82140; 83605; 85025; 85610; 85730; 86140; 87040; 87637; 93005; 96360; 99284; A9270; J7030

== ENCOUNTER 2025-03-14 08:13 | Outpatient (CLI) | payer MEDICARE, SELFPAY ==
--- NOTE | ~2025-03-14 | US_ITS ---
EXAMINATION: US carotid duplex BI DATE: 03/14/2025 09:17 INDICATION: Cervicalgia. Transient cerebral ischemic attack. TECHNIQUE: Grayscale, color Doppler, and pulsed Doppler images of the cervical carotid arteries were obtained. The degree of vessel stenosis is placed in one of the following categories: normal, <50%, 5 0-69%, >=70% but less than near-occlusion, near-occlusion, or total occlusion. Note that percent sten osis relative to normal distal artery lumen diameter is indirectly measured from velocity measurement s as described by Alfredo, et al. Radiology 2003; 229:340-346. Notes: Normal: Peak systolic velocity <125 centimeters/sec and no plaque <50%. Peak systolic velocity <125 ( EDV <40; ICA/CCA PSV ratio <2.0; used these factors only a tandem lesions or low cardiac output or co ntralateral disease) 50-69 %: PSV 125-230 (EDV 40-100; ratio 2-4) >= 70% but less than near occlusion: PSV greater than 230 (EDV > 100; ratio> 4.0) Near Occlusion: PSV that is variable; markedly narrowed lumen Occlusion: Absent flow on color/spectral Doppler and no lumen on norton scale. COMPARISON: None. FINDINGS: RIGHT: The right common carotid artery (CCA) peak systolic velocity (PSV) is 98 cm/s. The right internal car otid artery (ICA) PSV is 112 cm/s. The right ICA end-diastolic velocity (EDV) is 15 cm/s. The right I CA/CCA PSV ratio is 1.1. The external carotid artery (ECA) PSV is 129 cm/s. There is antegrade flow i n the right vertebral artery. LEFT: The left CCA PSV is 86 cm/s. The left ICA PSV is 83 cm/s. The left ICA EDV is 20 cm/s. The left ICA/C CA PSV ratio is 1.0. The ECA PSV is 77 cm/s. There is antegrade flow in the left vertebral artery. IMPRESSION: 1. Less than 50% stenosis in the right internal carotid artery by sonographic criteria. 2. Less than 50% stenosis in the left internal carotid artery by sonographic criteria. Reviewed, dictated and finalized at location B. IMPRESSION: 1. Less than 50% stenosis in the right internal carotid artery by sonographic c riteria. 2. Less than 50% stenosis in the left internal carotid artery by sonographic cr modestaia.
--- OUTSIDE RECORDS SUMMARY | 2025-03-14 08:23 | XMS_ITS | Continuity of Care Document ---
Author Organization [facility] Address [address] [place] [address] Phone Care Team Providers Care Application Development Team Lead Name Role Phone Driss Singh Unavailable Unavailable Advance Directives Directive Yes / No Effective Date File Name No Information Encounters Encounter Description Practice Location Reason(s) For Visit Diagnoses Date Provider Providers Copied on Encounter [facility], [address], [place], [place], [id number], [place] tel:[phone] [facility] No Information [address] Doisy Edward. [address] , [address], [place], [address], [place]. tel:[phone] Family History Family Member Type Diagnosis Age At Onset No Information Payers Payer name Insurance type Covered constitution party ID Authoriza tion(s) No Information Social [...]
--- OUTSIDE RECORDS SUMMARY | 2025-03-14 08:23 | XMS_ITS | Clinical Summary ---
Author Organization [facility] Address [address] [place] [address] Care Team Providers Care Kst Operator Name Role Phone Cassandra Mathis DO Primary Care Provider +1- [phone] Allergies No known active allergies Medications allopurinoL [...] (07/21/2021): Added automatically from request for surgery [id number] Immunizations Immunization Administration Dates Next Due [employer] SARS-CoV-2 Monovalent Vaccination (12+ Yrs) PURPLE [...] Comments Blood Pressure 108/58 08/20/2021 8:35 AM CRYPTOGRAPHER Pulse 74 08/20/2021 8:35 AM CRYPTOGRAPHER Temperature 36.7 C (98 F) 08/20/2021 8:35 AM CRYPTOGRAPHER Respiratory Rate 18 08/20/2021 8:35 AM CRYPTOGRAPHER Oxygen Saturation 98% 08/20/2021 8:35 AM CRYPTOGRAPHER Inhaled Oxygen Concentration - - Weight 76.9 kg (169 lb 8 oz) 08/19/2021 5:55 AM CRYPTOGRAPHER Height 177.8 cm (5' 10) 08/19/2021 5:55 AM CRYPTOGRAPHER Body Mass Index 24.32 08/19/2021 5:55 AM CRYPTOGRAPHER Plan of Treatment Health Maintenance Due Date Last Done Comments Hepatitis C Screening 1950 Hepatitis B Screening 1966 Zoster Vaccine (2 of 3) 01/05/2012 11/10/2011 Abdominal Aortic Aneurysm (A AA) Screen 2013 Well Visit 65+ 2013 Depression Screening 07/21/2022 07/21/2021, 07/21/20 21 Fall Risk Assessment 08/20/2022 08/20/2021 Covid-19 Vaccine (5 - 2023-2 5 season) 2024 02/05/2022, 07/17/2021, 11/22/2020, Additional history exists Influenza Vaccine (Season Ended) 2025 06/25/2021, 06/03/2020, 06/03/2020, Additional history exists DTaP/Tdap/Td Vaccine (4 - Td or Tdap) 05/04/2028 05/04/2018, 05/04/2018, 07/08/2008 Pneumococcal vaccine 65+ Completed 03/03/2016, 08/03 Medical Devices Implanted Type Area Rubber Printing Machine Operator Device Identifier Shelf Expiration Date Model / Serial / Lot [employer] [id number] Tornier Aequalis Perform 15mm Press Fit Long Post Shoulder - [id number] - [id number] Implanted:Qty : 1 on 08/19/2021 by Mina Washington MD at [facility] Other - see comments Right: Shoulder [employer] [id number] 04/22/2026 [id number] / [id number] / Tornier Inc [id number] Tornier Aequalis Perform 25mm Lateralize Augment Reverse Shoulder - [id number] - [id number] Implanted:Qty : 1 on 08/19/2021 by Mina Washington MD at [facility] Other - see comments Right: Shoulder [employer] [id number] 06/15/2026 [id number] / [id number] 2 / T[employer]ier Inc Tdt144 Tornier Aequalis Perform 39mm Reverse Shoulder Standard Sphere - [id number] - [id number] Implanted:Qty : 1 on 08/19/2021 by Mina Washington MD at [facility] Other - see comments Right: Shoulder [employer] [id number] 06/22/2026 [id number] / [id number] / [employer] [id number] Insert Perform 10 Deg [id number] - [id number] - [id number] Implanted:Qty : 1 on 08/19/2021 by Mina Washington MD at [facility] Other - see comments Right: Shoulder [employer] [id number] 01/14/2026 [id number] / [id number] / [employer] Dwx3ss Stem Perform Sz 3 Humeral - Sna - [id number] Implanted:Qty : 1 on 08/19/2021 by Mina Washington MD at [facility] Other - see comments Right: Shoulder [employer] [id number] / NA / T[employer]ier [employer] [id number] Aequalis Perform Reversed 5mm 34mm Peripheral Glenoid Screw - [id number] Implanted:Qty : 2 on 08/19/2021 by Mina Washington MD at [facility] Screw Right: Shoulder [employer] [id number] / / Insurance [facility] MDCR HMO [facility]F [facility] Address: [address] [address] [place] [address] [facility] MEDICARE OOS Member Subscriber Plan / Payer (Ef fective 2021-Present) Name:Chung Mueller Relation to Subscriber:Self Name:Chung Mueller Payer ID:[id number] (NAIC) Type:MEDICARE RISK OTHER Address: [address] [place] [facility] [place]ARE [place] [facility] ADVANTRA Advance Directives For more information, please contact: [phone] * Full Code (Latest Code Status on File) Date Activated Date Inactivated Comments 08/19/2021 11:07 AM 08/20/2021 3:42 PM Care Teams Kst Operator Relationship Specialty Start Date End Date Cassandra Mathis DO PCP - General Family Medicine 02/10/21
--- OUTSIDE RECORDS SUMMARY | 2025-03-14 08:23 | XMS_ITS ---
Author Name [facility] Address [address] [place] [address] Care Team Providers Care Hat Lining Blocker Name Role Phone RUDOLPH AWAD Primary Care [...] Name Patient's Relationship to Policy [place] AETNA [facility] (WNR) MEDICARE ADVANTAGE [facility] (WNR) Oct 03, 2022 [id number] [id number] Sunita DESIR PATIENT Selected Encounter This section includes the information on record at [place] for the Encounter. Date/Time Encounter Type Encounter Description Reason Pro vider Source Mar 07, 2025 01:56 PM Outpatient Encounter GENERAL INTERNAL MEDICINE I[facility] Encounter Template Text not used by [place] Plan of Treatment: Future Appointments (+ 6 months) and Future Tests (+/- 45 days) The Plan of Treatment section includes future care activities for the patient from all [facility] treatment[facility]ilities. This section includes future appointments and future orders which are active, pending or scheduled. Future Appointments This section includes appointments that were scheduled to occur 6 months from the date of the Encounter, up to a maximum of 20 appointments. The data comes from all [place] treatment facilities. Appointment Date/Time Appointment Type Appointme nt Facility Name Apr 19, 2025 10:00 AM AMBULATORY - MEDICINE [facility] Social History: Smoking Status (Most current) and Tobacco Use (All prior to encounter date) This section includes the most current, and the historical, smoking and tobacco- related health factors from the [place] facility where the Encounter took place. Current Smoking Status This section includes the most current smoking, or tobacco-related health factor, from the [place] facility where the Encounter took place. Date/Time Current Smoking Status Comment Facil ity Sep 27, 2023 01:41 PM VA-TOBACCO DOESNT USE [place] [address] [facility] Tobacco Use History This section includes a history of the smoking, or tobacco-related health factors, that were collected on or before the date of the Encounter. The data comes from the [place] facility where the Encounter took place. Date/Time Smoking Status/Tobacco Use Comment F acility Sep 27, 2023 01:41 PM VA-TOBACCO USE [address] [facility] Sep 27, 2023 01:41 PM VA-TOBACCO USE ADVICE 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 Sep 27, 2023 01:41 PM VA-TOBACCO USE MED NO [facility] Sep 27, 2023 01:41 PM VA-TOBACCO USER EVERY DAY [facility] Advance Directives: All historical and current Section Date Range: From patient's date of to the date document was created. This section includes ALL of a patient's completed or amended [place] Advance and Rescinded Directives. The entries below indicate that a directive exists for the patient, but an actual copy is not included with this document. The data comes from all [facility]. Date Advance Directives Provider Source Mar 17, 2011 ADVANCE DIRECTIVE DISCUSSION JADE MARTINEZ [facility] Encounter Notes: All associated encounter notes This section contains the clinical notes associated to the Encounter. Date/Time Encounter Note(s) Provider Source Oct 07, 2015 10:00 AM SCANNED NOTE: LOCAL TITLE: NON [facility] CARE [facility] STANDARD TITLE: SCANNED NOTE DATE OF NOTE: OCT 07, 2015@10:00 ENTRY DATE: MAR 07, 2025@13:57:35 AUTHOR: MALU BELTRAN EXP COSIGNER: URGENCY: STATUS: COMPLETED Attached to this note is a scanned copy of [place] medical record consisting of the following document(s): Progress Note DOS: 10/07/15 From: PATIENT LETTER To view the scanned document: 1) You must be logged into [facility] 2) Click on Toolbar 3) Sign on to [facility] /es/ MALU BELTRAN Registered Nurse Signed: 03/07/2025 14:03 MALU BELTRAN [facility]
--- OUTSIDE RECORDS SUMMARY | 2025-03-14 08:23 | XMS_ITS | Referral Summary ---
Author Organization [facility] Address [address] [place] [address] Care Team Providers Care Crib Pad Maker Name Role Phone Cassandra Mathis DO Primary Care Provider +1- [phone] Allergies No known active allergies Medications allopurinoL [...] (07/21/2021): Added automatically from request for surgery [id number] Immunizations Immunization Administration Dates Next Due [employer] SARS-CoV-2 Monovalent Vaccination (12+ Yrs) PURPLE 07/17/2021,11/22/2020,11/01/2020 [...] Comments Blood Pressure 108/58 08/20/2021 8:35 AM SUBSCRIPTION CLERK Pulse 74 08/20/2021 8:35 AM SUBSCRIPTION CLERK Temperature 36.7 C (98 F) 08/20/2021 8:35 AM SUBSCRIPTION CLERK Respiratory Rate 18 08/20/2021 8:35 AM SUBSCRIPTION CLERK Oxygen Saturation 98% 08/20/2021 8:35 AM SUBSCRIPTION CLERK Inhaled Oxygen Concentration - - Weight 76.9 kg (169 lb 8 oz) 08/19/2021 5:55 AM SUBSCRIPTION CLERK Height 177.8 cm (5' 10) 08/19/2021 5:55 AM SUBSCRIPTION CLERK Body Mass Index 24.32 08/19/2021 5:55 AM SUBSCRIPTION CLERK Plan of Treatment Not on file Medical Devices Implanted Type Area Brim Cutter Device Identifier Shelf Expiration Date Model / Serial / Lot [employer]ier Inc [id number] Tornier Aequalis Perform 15mm Press Fit Long Post Shoulder - [id number] - [id number] Implanted:Qty : 1 on 08/19/2021 by Mina Washington MD at [facility] Other - see comments Right: Shoulder [employer] [id number] 04/22/2026 [id number] / [id number] 1 / [employer]ier Inc [id number] Tornier Aequalis Perform 25mm Lateralize Augment Reverse Shoulder - [id number] - [id number] Implanted:Qty : 1 on 08/19/2021 by Mina Washington MD at [facility] Other - see comments Right: Shoulder [employer] [id number] 06/15/2026 [id number] / [id number] 2 / T[employer]ier Inc [id number] Tornier Aequalis Perform 39mm Reverse Shoulder Standard Sphere - [id number] - [id number] Implanted:Qty : 1 on 08/19/2021 by Mnia Washington MD at [facility] Other - see comments Right: Shoulder [employer] [id number] 06/22/2026 [id number] / [id number] / [employer] [id number] Insert Perform 10 Deg [id number] - [id number] - [id number] Implanted:Qty : 1 on 08/19/2021 by Mina Washington MD at [facility] Other - see comments Right: Shoulder [employer] [id number] 01/14/2026 [id number] / [id number] / [employer] Dwx3ss Stem Perform Sz 3 Humeral - Sna - [id number] Implanted:Qty : 1 on 08/19/2021 by Mina Washington MD at [facility] Other - see comments Right: Shoulder [employer] [id number] / NA / Tornier Inc [id number] Aequalis Perform Reversed 5mm 34mm Peripheral Glenoid Screw - [id number] Implanted:Qty : 2 on 08/19/2021 by Mina Washington MD at [facility] Screw Right: Shoulder [employer] [id number] / / Insurance [facility] MDCR HMO REF [facility] MEDICARE Address: [address] [address] [place] [address] [facility] MEDICARE OOS [facility] [place]ARE [place] [facility] ADVANTRA Advance Directives For more information, please contact: [phone] * Full Code (Latest Code Status on File) Date Activated Date Inactivated Comments 08/19/2021 11:07 AM 08/20/2021 3:42 PM Care Teams Crib Pad Maker Relationship Specialty Start Date End Date Cassandra Mathis DO PCP - General Family Medicine 02/10/21
--- OUTSIDE RECORDS SUMMARY | 2025-03-14 08:23 | XMS_ITS | Clinical Summary ---
Author Organization [facility] Address [address] [address] Phone Care Team Providers Care Dural Mechanic Name Role Phone Unavailable Primary Care Provider [...] Encounters Date Type Department Care Team Description 02/21/2025 External Device Data [facility] ABSTRACTION Provider, Abstract 02/21/2025 External Device Data [facility]STRACTION Provider, Abstract 02/20/2025 External Device Data [facility]STRACTION Provider, Abstract 02/19/2025 External Device Data [facility]CTION Provider, Abstract 01/15/2025 External Device Data [facility]CTION Provider, Abstract 01/08/2025 External Device Data [facility]STRACTION Provider, Abstract 12/19/2024 External Device Data [facility]STRACTION Provider, [...] on file Legal Sex Male 2:22 PM CODE ENFORCEMENT INSPECTOR Gender Identity Not on file Sexual Orientation Not on file Last Filed Vital Signs Vital Sign Reading Time Taken Comments Blood Pressure 109/70 09/06/2024 9:25 AM CODE ENFORCEMENT INSPECTOR Pulse 60 09/06/2024 9:25 AM CODE ENFORCEMENT INSPECTOR Temperature 36.7 C (98 F) 09/06/2024 9:25 AM CODE ENFORCEMENT INSPECTOR Respiratory Rate 16 09/06/2024 9:25 AM CODE ENFORCEMENT INSPECTOR Oxygen Saturation 99% 09/06/2024 9:25 AM CODE ENFORCEMENT INSPECTOR Inhaled Oxygen Concentration - - Weight 74.4 kg (164 lb) 09/06/2024 9:25 AM CODE ENFORCEMENT INSPECTOR Height 177.8 cm (5' 10) 09/06/2024 9:25 AM CODE ENFORCEMENT INSPECTOR Body Mass Index 23.53 09/06/2024 9:25 AM CODE ENFORCEMENT INSPECTOR Plan of Treatment Health Maintenance Due Date [...] Completed 03/03/2016 , 08/18/2015 Insurance AETNA O [facility]
--- OUTSIDE RECORDS SUMMARY | 2025-03-14 08:23 | XMS_ITS | Continuity of Care Document ---
Author Name [facility] Organization [facility] Care Team Providers Care Level Designer Name Role Phone [facility] Unavailable Unavailable Problems Combined list of problems from Department of Defense and [facility] Affairs facilities. It does not include entries that were removed or entered in error. Problem Status Onset Date Problem Type Date of Resolution Comments Source Transient cerebral ischemia Active 2 Condition [facility] Decreased vitamin B12 level (SNOMED CT 990368075) Active Condition [facility] Erectile dysfunction (SNOMED CT 243472617) Active Condition [facility] Gout Active Condition [facility] Hyperlipidemia Active Condition [facility] Peripheral neuropathy (SNOMED CT 908263505) Active Condition February 09, 2011 Entered By: JADE MARTINEZ A Comment: diagnosed about 3 years ago [facility] Posttraumatic stress disorder Active Condition [facility] Prediabetes Active Condition [facility] Skin eruption Active Condition [facility] Tinnitus Active Condition [facility] Tobacco use Active Condition [facility] Vitamin D deficiency (SNOMED CT 07604112) Active Condition [facility] Chronic low back pain (SNOMED CT 549152142) Inactive Condition 09/30/2023 Nov 14, 2013 Entered By: JADE MARTINEZ A Comment: on SS disability [facility] Depression Inactive Condition 09/30/2023 [facility] Neck Pain Inactive Condition 09/30/2023 [facility] Persistent alcohol abuse (SNOMED CT 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 Medications Combined list of outpatient medications [...] DAY ORAL ACTIVE RITESH,SHE LBY R 2024 [facility] ASPIRIN 81MG TAB,EC TAKE ONE TABLET BY MOUTH ONCE A DAY ORAL ACTIVE AWAD,SHE LBY R 2024 [facility] ATORVASTATI N CA 80MG TAB TAKE ONE-HALF TABLET BY MOUTH EVERY EVENING ORAL ACTIVE RITESH,SHE LBY R 2024 [facility] CHOLECALCIF LASHAWN 50MCG (2,000UNIT) TAB TAKE TWO TABLETS BY MOUTH ONCE A DAY ORAL ACTIVE EZEKIEL MARTINEZ 2010 [facility] CLOPIDOGREL BISULFATE 75MG TAB TAKE ONE TABLET BY MOUTH ONCE A DAY ORAL ACTIVE RITESH,SHE LBY R 2024 [facility] CYANOCOBALA MIN 1000MCG TAB TAKE ONE TABLET BY MOUTH ONCE A DAY ORAL ACTIVE RITESH,SHE LBY R 2024 [facility] DICLOFENAC NA 75MG TAB,EC TAKE ONE TABLET BY MOUTH EVERY MORNING AND EVENING ORAL ACTIVE RITESH,SHE LBY R 2024 [facility] FENOFIBRATE TAB TAKE 54 MG BY MOUTH ONCE A DAY ORAL ACTIVE RITESH,SHE LBY R 2024 [facility] GARLIC OIL TAB,EC TAKE ONE TABLET BY MOUTH ORAL ACTIVE RITESH,SHE LBY R 2022 [facility] PREGABALIN 150MG CAP,ORAL TAKE ONE CAPSULE BY MOUTH THREE TIMES A DAY FOR NEUROPAT HIC PAIN. *MAY CAUSE DROWSINE SS* ORAL DISCONT INUED 02/03/2025 [id number] RITESH,SHE LBY R 2024 90 [facility] PREGABALIN 150MG CAP,ORAL TAKE ONE CAPSULE BY MOUTH THREE TIMES A DAY FOR NEUROPAT HIC PAIN. *MAY CAUSE DROWSINE SS* ORAL DISCONT INUED 12/26/2024 [id number] 5 KELY AWAD R 2024 90 [facility] PREGABALIN 150MG CAP,ORAL TAKE ONE CAPSULE BY MOUTH THREE TIMES A DAY FOR NEUROPAT HIC PAIN. *MAY CAUSE DROWSINE SS* ORAL DISCONT INUED 11/17/2024 [id number] 5 KELY AWAD R 2024 90 [facility] PREGABALIN 150MG CAP,ORAL TAKE ONE CAPSULE BY MOUTH THREE TIMES A DAY FOR NEUROPAT HIC PAIN. *MAY CAUSE DROWSINE SS* ORAL DISCONT INUED BY PROVIDE R 09/20/2024 [id number] 4 KELY AWAD R 2023 90 [facility] PREGABALIN 150MG CAP,ORAL TAKE ONE CAPSULE BY MOUTH THREE TIMES A DAY FOR NEUROPAT HIC PAIN. *MAY CAUSE DROWSINE SS* ORAL DISCONT INUED 07/25/2024 [id number] 4 Hayden CABRERA UASH 2023 90 [facility] PREGABALIN 150MG CAP,ORAL TAKE ONE CAPSULE BY MOUTH THREE TIMES A DAY FOR NEUROPAT HIC PAIN. *MAY CAUSE DROWSINE SS* ORAL DISCONT INUED 06/13/2024 [id number] 4 KELY AWAD R 2023 90 [facility] PREGABALIN 150MG CAP,ORAL TAKE ONE CAPSULE BY MOUTH THREE TIMES A DAY FOR NEUROPAT HIC PAIN. *MAY CAUSE DROWSINE SS* ORAL DISCONT INUED 05/09/2024 [id number] 4 KELY AWAD R 2023 90 [facility] PREGABALIN 150MG CAP,ORAL TAKE ONE CAPSULE BY MOUTH THREE TIMES A DAY FOR NEUROPAT HIC PAIN. *MAY CAUSE DROWSINE SS* ORAL DISCONT INUED 01/21/2024 [id number] 4 KELY AWAD R 2023 90 [facility] PREGABALIN 150MG CAP,ORAL TAKE ONE CAPSULE BY MOUTH THREE TIMES A DAY FOR NEUROPAT HIC PAIN. *MAY CAUSE DROWSINE SS* ORAL 03/13/2025 [id number] 5 RITESH,KELY RINCONY R 2024 90 [facility] SILDENAFIL CITRATE 100MG TAB TAKE ONE TABLET BY MOUTH EVERY WEEK NEEDED FOR ERECTILE DYSFUNCT ION (TAKE 60 MINUTES PRIOR TO SEXUAL ACTIVITY ) - LIMIT 6 DOSES PER 30 DAYS ORAL ACTIVE 03/31/2025 [id number] 4 KELY AWADY R 2023 18 [facility] Allergies, Adverse Reactions, Alerts Combined list of allergies from Department of Defense and Veterans Affairs facilities. It does not include entries that were removed or entered in error. Substance Category Reaction Severity Reaction type Status Date Reported Comments Source SERTRALINE Propensity to adverse reactions to drug (finding) Diarrhea active 6 [facility] Immunizations Combined list of available immunizations from the Department of Defense and Veterans Affairs facilities. Immunization Series Date Given Administered By Site Reaction Lot Number CVX Code Drug Social Worker Masters Status Comments Source COVID-19 (PFIZER), MRNA, LNP-S, PF, ASHANTI-SUCROSE, 30 MCG/0.3 ML (AGES 12+ YEARS) 5 2023 309 complet ed HISTORICA L INFORMATI ON - FROM OTHER [facility], [facility] INFLUENZA, HIGH-DOSE, TRIVALENT, PF 1 2023 135 complet ed HISTORICA L INFORMATI ON - FROM OTHER [facility], [facility] COVID-19 (MODERNA), MRNA, LNP-S, PF, 50 MCG/0.5 ML (AGES 12+ YEARS) 1 2022 SANDRA RAOMS RIGHT DELTO ID [id number] 312 complet ed [facility] INFLUENZA, HIGH-DOSE, QUADRIVALENT, PF 1 2022 197 complet ed HISTORICA L INFORMATI ON - FROM OTHER [facility], [facility] INFLUENZA, UNSPECIFIED FORMULATION 2022 88 complet ed HISTORICA L INFORMATI ON - FROM PATIENT'S RECALL, [facility] N INFLUENZA, HIGH-DOSE, QUADRIVALENT, PF 1 2021 197 complet ed HISTORICA L INFORMATI ON - FROM OTHER REGISTRY, [facility] PNEUMOCOCCAL POLYSACCHARID E PPV23 2 2021 33 complet ed HISTORICA L INFORMATI ON - FROM OTHER REGISTRY, [facility] COVID-19 (MODERNA), MRNA, LNP-S, PF, 100 MCG/0.5ML DOSE OR 50 MCG/0.25ML DOSE 3 2021 207 complet ed MOD; [id number]; 2 [facility] ZOSTER RECOMBINANT 2 2021 187 complet ed HISTORICA L INFORMATI ON - FROM OTHER [facility]ISTRY, [facility]-19 (PFIZER), MRNA, LNP-S, PF, 30 MCG/0.3 ML DOSE 3 2020 208 complet ed PFR; [id number]; 1 [facility] PNEUMOCOCCAL POLYSACCHARID E PPV23 1 2020 33 complet ed HISTORICA L INFORMATI ON - FROM OTHER [facility]ISTRY, [facility] ZOSTER RECOMBINANT 1 2020 187 complet ed HISTORICA L INFORMATI ON - FROM OTHER REGISTRY, [facility] N INFLUENZA, HIGH-DOSE, QUADRIVALENT, PF 1 2020 197 complet ed HISTORICA L INFORMATI ON - FROM OTHER REGISTRY, [facility] COVID-19 (PFIZER), MRNA, LNP-S, PF, 30 MCG/0.3 ML DOSE 2 2020 208 complet ed PFR; [id number]; 1 [facility] COVID-19 (PFIZER), MRNA, LNP-S, PF, 30 MCG/0.3 ML DOSE 1 2020 208 complet ed PFR; [id number]; 1 [facility] INFLUENZA, HIGH-DOSE, QUADRIVALENT 2019 197 complet ed HISTORICA L INFORMATI ON - FROM OTHER PROVIDER, Partner: [facility]. Administe red by: [facility] Clinician (NPI=Not Provided) . Partner 7 Lot#: [id number] Mfr: sanofi pasteur; Dosage: [id number] ml [facility] INFLUENZA, UNSPECIFIED FORMULATION 2019 88 complet ed [facility] INFLUENZA, UNSPECIFIED FORMULATION 2018 88 complet ed [facility] INFLUENZA, TRIVALENT, ADJUVANTED 2018 168 complet ed HISTORICA L INFORMATI ON - FROM OTHER PROVIDER, Partner: [facility]. Administe red by: [facility] Clinician (NPI=Not Provided) . Partner 7 Lot#: [id number] Mfr: [employer]IR[employer] [facility] INFLUENZA, INJECTABLE, QUADRIVALENT, PRESERVATIVE FREE 2017 150 complet ed 02, Partner: [facility]. Administe red by: [facility] Clinician (NPI=Not Provided) . Partner 7 Lot#: [id number] Mfr: [employer] [facility] INFLUENZA, SPLIT VIRUS, QUADRIVALENT, PF 2 2017 150 complet ed HISTORICA L INFORMATI ON - FROM OTHER REGISTRY, [facility] INFLUENZA, HIGH-DOSE, TRIVALENT, PF 1 2017 135 complet ed HISTORICA L INFORMATI ON - FROM OTHER [facility], [facility] TDAP 2017 115 complet ed Right Deltoid [facility] TD (ADULT), 2 LF TETANUS TOXOID, PRESERVATIVE FREE, ADSORBED 1 2017 09 complet ed HISTORICA L INFORMATI ON - FROM OTHER REGISTRY, [facility] INFLUENZA, HIGH-DOSE, TRIVALENT, PF 1 2016 135 complet ed HISTORICA L INFORMATI ON - FROM OTHER REGISTRY, [facility] INFLUENZA, UNSPECIFIED FORMULATION 2016 88 complet ed [facility] INFLUENZA, UNSPECIFIED FORMULATION 2015 88 complet ed [facility] NOVEL INFLUENZA-H1N 1-09, ALL FORMULATIONS 1 2015 128 complet ed HISTORICA L INFORMATI ON - [facility]ISTRY[facility] PNEUMOCOCC[facility] POLYSACCHARID E PPV23 2015 33 complet ed [facility] PNEUMOCOCCAL CONJUGATE PCV 13 2014 133 complet ed [facility] INFLUENZA, UNSPECIFIED FORMULATION 2014 88 complet ed [facility] INFLUENZA, HIGH-DOSE, TRIVALENT, PF 1 2014 135 complet ed HISTORICA L INFORMATI ON - FROM OTHER REGISTRY, [facility] INFLUENZA, UNSPECIFIED FORMULATION 2013 88 complet ed [facility] INFLUENZA, UNSPECIFIED FORMULATION 2013 88 complet ed [facility] INFLUENZA, UNSPECIFIED FORMULATION 2012 88 complet ed [place] INFLUENZA, UNSPECIFIED FORMULATION 2012 88 complet ed [facility] INFLUENZA, UNSPECIFIED FORMULATION 2012 88 complet ed [facility] INFLUENZA, UNSPECIFIED FORMULATION 2011 88 complet ed [facility] ZOSTER LIVE 2011 121 complet ed [facility] INFLUENZA, UNSPECIFIED FORMULATION 2010 88 complet ed [facility] INFLUENZA, UNSPECIFIED FORMULATION 2010 88 complet ed [facility] INFLUENZA, UNSPECIFIED FORMULATION 2009 88 [...] its performance characteris tics confirmed by the [facility] laboratory thru method comparison with reference laboratory and medication chart review. The laboratory is regulated under CLIA as qualified to perform high-comple xity testing. Fentanyl is used for clinical purposes in conjunction with other laboratory tests. Ordering Provider: JAIME AWAD Report Released Date/Time: Oct 11, 2024 10:37 AM Reporting Lab: [place] [address] [address] [address] Performing Lab: [address] [address] [facility] URINE DRUG SCREEN (STL) AMPHETAMIN E [PRESENCE] IN URINE BY SCREEN METHOD Negative ng/mL 10/16 Specimen Type: URINE Comment: The cut-off value for Fentanyl was laboratory developed and its performance characteris tics confirmed by the [facility] laboratory thru method comparison with reference laboratory and medication chart review. The laboratory is regulated under CLIA as qualified to perform high-comple xity testing. Fentanyl is used for clinical purposes in conjunction with other laboratory tests. Ordering Provider: JAIME AWAD Report Released Date/Time: Oct 11, 2024 10:37 AM Reporting Lab: [facility] [address] [address] Performing Lab: [address] [address] [facility] URINE DRUG SCREEN (STL) BENZOYLECG ONINE [PRESENCE] IN URINE Negative ng/mL 10/16 Specimen Type: URINE Comment: The cut-off value for Fentanyl was laboratory developed and its performance characteris tics confirmed by the [facility] laboratory thru method comparison with reference laboratory and medication chart review. The laboratory is regulated under CLIA as qualified to perform high-comple xity testing. Fentanyl is used for clinical purposes in conjunction with other laboratory tests. Ordering Provider: JAIME AWAD Report Released Date/Time: Oct 11, 2024 10:37 AM Reporting Lab: [facility] [address] [address] Performing Lab: [facility] [address] [address] [facility] URINE DRUG SCREEN (STL) BENZODIAZE PINES [PRESENCE] IN URINE BY SCREEN METHOD Negative ng/mL 10/16 Specimen Type: URINE Comment: The cut-off value for Fentanyl was laboratory developed and its performance characteris tics confirmed by the [facility] laboratory thru method comparison with reference laboratory and medication chart review. The laboratory is regulated under CLIA as qualified to perform high-comple xity testing. Fentanyl is used for clinical purposes in conjunction with other laboratory tests. Ordering Provider: JAIME AWAD Report Released Date/Time: Oct 11, 2024 10:37 AM Reporting Lab: [facility] [address] [address] Performing Lab: [address] [address] [facility] URINE DRUG SCREEN (STL) CANNABINOI DS [PRESENCE] IN URINE BY SCREEN METHOD Negative ng/mL 10/16 Specimen Type: URINE Comment: The cut-off value for Fentanyl was laboratory developed and its performance characteris tics confirmed by the [facility] laboratory thru method comparison with reference laboratory and medication chart review. The laboratory is regulated under CLIA as qualified to perform high-comple xity testing. Fentanyl is used for clinical purposes in conjunction with other laboratory tests. Ordering Provider: JAIME AWAD Report Released Date/Time: Oct 11, 2024 10:37 AM Reporting Lab: [facility] [address] [address] Performing Lab: [place] [address] [address] [facility] URINE DRUG SCREEN (STL) METHADONE [PRESENCE] IN URINE Negative ng/mL 10/16 Specimen Type: URINE Comment: The cut-off value for Fentanyl was laboratory developed and its performance characteris tics confirmed by the [facility] laboratory thru method comparison with reference laboratory and medication chart review. The laboratory is regulated under CLIA as qualified to perform high-comple xity testing. Fentanyl is used for clinical purposes in conjunction with other laboratory tests. Ordering Provider: JAIME AWAD Report Released Date/Time: Oct 11, 2024 10:37 AM Reporting Lab: [facility] [address] [address] Performing Lab: [place] [address] [address] [facility] URINE DRUG SCREEN (STL) OPIATES [PRESENCE] IN URINE BY SCREEN METHOD Negative ng/mL 10/16 Specimen Type: URINE Comment: The cut-off value for Fentanyl was laboratory developed and its performance characteris tics confirmed by the [facility] laboratory thru method comparison with reference laboratory and medication chart review. The laboratory is regulated under CLIA as qualified to perform high-comple xity testing. Fentanyl is used for clinical purposes in conjunction with other laboratory tests. Ordering Provider: JAIME AWAD Report Released Date/Time: Oct 11, 2024 10:37 AM Reporting Lab: [facility] [address] [address] Performing Lab: [place] [address] [address] [facility] URINE DRUG SCREEN (STL) CREATININE [MASS/VOLU ME] IN URINE 71.9 mg/dL 63 - 166 10/16 Specimen Type: URINE Comment: The cut-off value for Fentanyl was laboratory developed and its performance characteris tics confirmed by the [facility] laboratory thru method comparison with reference laboratory and medication chart review. The laboratory is regulated under CLIA as qualified to perform high-comple xity testing. Fentanyl is used for clinical purposes in conjunction with other laboratory tests. Ordering Provider: JAIME AWAD Report Released Date/Time: Oct 11, 2024 10:37 AM Reporting Lab: [facility] [address] [address] Performing Lab: [place] [address] [address] [facility] URINE DRUG SCREEN (STL) OXYCODONE CUTOFF [MASS/VOLU ME] IN URINE FOR SCREEN METHOD Negative ng/mL 10/16 Specimen Type: URINE Comment: The cut-off value for Fentanyl was laboratory developed and its performance characteris tics confirmed by the [facility] laboratory thru method comparison with reference laboratory and medication chart review. The laboratory is regulated under CLIA as qualified to perform high-comple xity testing. Fentanyl is used for clinical purposes in conjunction with other laboratory tests. Ordering Provider: JAIME AWAD Report Released Date/Time: Oct 11, 2024 10:37 AM Reporting Lab: [address] [address] Performing Lab: [address] [phone] [place] [address] URINE DRUG SCREEN (STL) BUPRENORPH INE [PRESENCE] IN URINE Negative ng/mL 10/16 Specimen Type: URINE Comment: The cut-off value for Fentanyl was laboratory developed and its performance characteris tics confirmed by the [facility] laboratory thru method comparison with reference laboratory and medication chart review. The laboratory is regulated under CLIA as qualified to perform high-comple xity testing. Fentanyl is used for clinical purposes in conjunction with other laboratory tests. Ordering Provider: JAIME AWAD Report Released Date/Time: Oct 11, 2024 10:37 AM Reporting Lab: [address] [address] Performing Lab: [address] [address] [facility] URINE DRUG SCREEN (STL) FENTANYL [PRESENCE] IN URINE Negative ng/mL 10/16 Specimen Type: URINE Comment: The cut-off value for Fentanyl was laboratory developed and its performance characteris tics confirmed by the [facility] laboratory thru method comparison with reference laboratory and medication chart review. The laboratory is regulated under CLIA as qualified to perform high-comple xity testing. Fentanyl is used for clinical purposes in conjunction with other laboratory tests. Ordering Provider: JAIME AWAD Report Released Date/Time: Oct 11, 2024 10:37 AM Reporting Lab: [facility] [address] [facility] [address] Performing Lab: [address] [address] [facility] METHADON E PANEL (STL) ETHANOL [MASS/VOLU ME] IN URINE 55-POSmg /dL 0 - 20 04/09 H Specimen Type: URINE Comment: The cut-off value for this test was laboratory developed and its performance characteris tics confirmed by the [facility] laboratory thru method comparison with reference laboratory and medication chart review. The laboratory is regulated under CLIA as qualified to perform high-comple xity testing. This test is used for clinical purposes in conjunction with other laboratory tests. Ordering Provider: JAIME AWAD Report Released Date/Time: Mar 30, 2024 09:55 AM Reporting Lab: [address] [address] Performing Lab: [address] [address] [facility] METHADON E PANEL (STL) AMPHETAMIN E [PRESENCE] IN URINE BY SCREEN METHOD Negative ng/mL 04/09 Specimen Type: URINE Comment: The cut-off value for this test was laboratory developed and its performance characteris tics confirmed by the [facility] laboratory thru method comparison with reference laboratory and medication chart review. The laboratory is regulated under CLIA as qualified to perform high-comple xity testing. This test is used for clinical purposes in conjunction with other laboratory tests. Ordering Provider: JAIME AWAD Report Released Date/Time: Mar 30, 2024 09:55 AM Reporting Lab: [address] [address] Performing Lab: [address] [address] [facility] METHADON E PANEL (STL) BENZOYLECG ONINE [PRESENCE] IN URINE Negative ng/mL 04/09 Specimen Type: URINE Comment: The cut-off value for this test was laboratory developed and its performance characteris tics confirmed by the [facility] laboratory thru method comparison with reference laboratory and medication chart review. The laboratory is regulated under CLIA as qualified to perform high-comple xity testing. This test is used for clinical purposes in conjunction with other laboratory tests. Ordering Provider: JAIME AWAD Report Released Date/Time: Mar 30, 2024 09:55 AM Reporting Lab: [place] [address] [address] Performing Lab: [place] [id number] [place] [address] METHADON E PANEL (STL) BENZODIAZE PINES [PRESENCE] IN URINE BY SCREEN METHOD Negative ng/mL 04/09 Specimen Type: URINE Comment: The cut-off value for this test was laboratory developed and its performance characteris tics confirmed by the [facility] laboratory thru method comparison with reference laboratory and medication chart review. The laboratory is regulated under CLIA as qualified to perform high-comple xity testing. This test is used for clinical purposes in conjunction with other laboratory tests. Ordering Provider: JAIME AWAD Report Released Date/Time: Mar 30, 2024 09:55 AM Reporting Lab: [address] [address] Performing Lab: [address] [address] [facility] METHADON E PANEL (STL) CANNABINOI DS [PRESENCE] IN URINE BY SCREEN METHOD Negative ng/mL 04/09 Specimen Type: URINE Comment: The cut-off value for this test was laboratory developed and its performance characteris tics confirmed by the [facility] laboratory thru method comparison with reference laboratory and medication chart review. The laboratory is regulated under CLIA as qualified to perform high-comple xity testing. This test is used for clinical purposes in conjunction with other laboratory tests. Ordering Provider: JAIME AWAD Report Released Date/Time: Mar 30, 2024 09:55 AM Reporting Lab: [facility] [address] [address] Performing Lab: [address] [address] [facility] METHADON E PANEL (STL) METHADONE [PRESENCE] IN URINE Negative ng/mL 04/09 Specimen Type: URINE Comment: The cut-off value for this test was laboratory developed and its performance characteris tics confirmed by the [facility] laboratory thru method comparison with reference laboratory and medication chart review. The laboratory is regulated under CLIA as qualified to perform high-comple xity testing. This test is used for clinical purposes in conjunction with other laboratory tests. Ordering Provider: JAIME AWAD Report Released Date/Time: Mar 30, 2024 09:55 AM Reporting Lab: [address] [address] Performing Lab: [place] [address] [facility] [address] [facility] METHADON E PANEL (STL) OPIATES [PRESENCE] IN URINE BY SCREEN METHOD Negative ng/mL 04/09 Specimen Type: URINE Comment: The cut-off value for this test was laboratory developed and its performance characteris tics confirmed by the [facility] laboratory thru method comparison with reference laboratory and medication chart review. The laboratory is regulated under CLIA as qualified to perform high-comple xity testing. This test is used for clinical purposes in conjunction with other laboratory tests. Ordering Provider: JAIME AWAD Report Released Date/Time: Mar 30, 2024 09:55 AM Reporting Lab: [place] [address] [facility] [address] Performing Lab: [address] [address] [facility] METHADON E PANEL (STL) CREATININE [MASS/VOLU ME] IN URINE 98.8 mg/dL 63 - 166 04/09 Specimen Type: URINE Comment: The cut-off value for this test was laboratory developed and its performance characteris tics confirmed by the [facility] laboratory thru method comparison with reference laboratory and medication chart review. The laboratory is regulated under CLIA as qualified to perform high-comple xity testing. This test is used for clinical purposes in conjunction with other laboratory tests. Ordering Provider: JAIME AWAD Report Released Date/Time: Mar 30, 2024 09:55 AM Reporting Lab: [facility] [address] [place] [phone] Performing Lab: [address] [phone] [place] [address] METHADON E PANEL (STL) OXYCODONE CUTOFF [MASS/VOLU ME] IN URINE FOR SCREEN METHOD Negative ng/mL 04/09 Specimen Type: URINE Comment: The cut-off value for this test was laboratory developed and its performance characteris tics confirmed by the [facility] laboratory thru method comparison with reference laboratory and medication chart review. The laboratory is regulated under CLIA as qualified to perform high-comple xity testing. This test is used for clinical purposes in conjunction with other laboratory tests. Ordering Provider: JAIME AWAD Report Released Date/Time: Mar 30, 2024 09:55 AM Reporting Lab: [address] [address] Performing Lab: [phone] [place] [address] METHADON E PANEL (STL) BUPRENORPH INE [PRESENCE] IN URINE Negative 04/09 Specimen Type: URINE Comment: The cut-off value for this test was laboratory developed and its performance characteris tics confirmed by the [facility] laboratory thru method comparison with reference laboratory and medication chart review. The laboratory is regulated under CLIA as qualified to perform high-comple xity testing. This test is used for clinical purposes in conjunction with other laboratory tests. Ordering Provider: JAIME AWAD Report Released Date/Time: Mar 30, 2024 09:55 AM Reporting Lab: [address] [address] Performing Lab: [address] [address] [facility] METHADON E PANEL (STL) FENTANYL [PRESENCE] IN URINE Negative ng/mL 04/09 Specimen Type: URINE Comment: The cut-off value for this test was laboratory developed and its performance characteris tics confirmed by the [facility] laboratory thru method comparison with reference laboratory and medication chart review. The laboratory is regulated under CLIA as qualified to perform high-comple xity testing. This test is used for clinical purposes in conjunction with other laboratory tests. Ordering Provider: JAIME AWAD Report Released Date/Time: Mar 30, 2024 09:55 AM Reporting Lab: [place] [phone] Performing Lab: [place] [id number] [place] [address] METHADON E PANEL (STL) ETHANOL [MASS/VOLU ME] IN URINE 28-POSmg /dL 0 - 20 09/30 H Specimen Type: URINE Comment: The cut-off value for this test was laboratory developed and its performance characteris tics confirmed by the [facility] laboratory thru method comparison with reference laboratory and medication chart review. The laboratory is regulated under CLIA as qualified to perform high-comple xity testing. This test is used for clinical purposes in conjunction with other laboratory tests. Ordering Provider: JAIME AWAD Report Released Date/Time: Aug 26, 2023 09:14 AM Reporting Lab: [address] [phone] Performing Lab: [phone] [place] [address] METHADON E PANEL (STL) AMPHETAMIN E [PRESENCE] IN URINE BY SCREEN METHOD Negative ng/mL 09/30 Specimen Type: URINE Comment: The cut-off value for this test was laboratory developed and its performance characteris tics confirmed by the [facility] laboratory thru method comparison with reference laboratory and medication chart review. The laboratory is regulated under CLIA as qualified to perform high-comple xity testing. This test is used for clinical purposes in conjunction with other laboratory tests. Ordering Provider: JAIME AWAD Report Released Date/Time: Aug 26, 2023 09:14 AM Reporting Lab: [facility] [address] [facility] [address] Performing Lab: [facility] [address] [facility] [address] [facility] METHADON E PANEL (STL) BENZOYLECG ONINE [PRESENCE] IN URINE Negative ng/mL 09/30 Specimen Type: URINE Comment: The cut-off value for this test was laboratory developed and its performance characteris tics confirmed by the [facility] laboratory thru method comparison with reference laboratory and medication chart review. The laboratory is regulated under CLIA as qualified to perform high-comple xity testing. This test is used for clinical purposes in conjunction with other laboratory tests. Ordering Provider: JAIME AWAD Report Released Date/Time: Aug 26, 2023 09:14 AM Reporting Lab: [facility] [address] [facility] [address] Performing Lab: [place] [address] [facility] [address] [facility] METHADON E PANEL (STL) BENZODIAZE PINES [PRESENCE] IN URINE BY SCREEN METHOD Negative ng/mL 09/30 Specimen Type: URINE Comment: The cut-off value for this test was laboratory developed and its performance characteris tics confirmed by the [facility] laboratory thru method comparison with reference laboratory and medication chart review. The laboratory is regulated under CLIA as qualified to perform high-comple xity testing. This test is used for clinical purposes in conjunction with other laboratory tests. Ordering Provider: JAIME AWAD Report Released Date/Time: Aug 26, 2023 09:14 AM Reporting Lab: [facility] [address] [facility] [address] Performing Lab: [facility] [address] [facility] [address] [facility] METHADON E PANEL (STL) CANNABINOI DS [PRESENCE] IN URINE BY SCREEN METHOD Negative ng/mL 09/30 Specimen Type: URINE Comment: The cut-off value for this test was laboratory developed and its performance characteris tics confirmed by the [facility] laboratory thru method comparison with reference laboratory and medication chart review. The laboratory is regulated under CLIA as qualified to perform high-comple xity testing. This test is used for clinical purposes in conjunction with other laboratory tests. Ordering Provider: JAIME AWAD Report Released Date/Time: Aug 26, 2023 09:14 AM Reporting Lab: [facility] [address] [facility] [address] Performing Lab: [place] [address] [facility] [address] [facility] METHADON E PANEL (STL) METHADONE [PRESENCE] IN URINE Negative ng/mL 09/30 Specimen Type: URINE Comment: The cut-off value for this test was laboratory developed and its performance characteris tics confirmed by the [facility] laboratory thru method comparison with reference laboratory and medication chart review. The laboratory is regulated under CLIA as qualified to perform high-comple xity testing. This test is used for clinical purposes in conjunction with other laboratory tests. Ordering Provider: JAIME AWAD Report Released Date/Time: Aug 26, 2023 09:14 AM Reporting Lab: [facility] [address] [facility] [address] Performing Lab: [facility] [address] [facility] [address] [facility] METHADON E PANEL (STL) OPIATES [PRESENCE] IN URINE BY SCREEN METHOD Negative ng/mL 09/30 Specimen Type: URINE Comment: The cut-off value for this test was laboratory developed and its performance characteris tics confirmed by the [facility] laboratory thru method comparison with reference laboratory and medication chart review. The laboratory is regulated under CLIA as qualified to perform high-comple xity testing. This test is used for clinical purposes in conjunction with other laboratory tests. Ordering Provider: JAIME AWAD Report Released Date/Time: Aug 26, 2023 09:14 AM Reporting Lab: [facility] [address] [facility] [address] Performing Lab: [facility] [address] [place] [phone] [facility] METHADON E PANEL (STL) CREATININE [MASS/VOLU ME] IN URINE 127.2 mg/dL 63 - 166 09/30 Specimen Type: URINE Comment: The cut-off value for this test was laboratory developed and its performance characteris tics confirmed by the [facility] laboratory thru method comparison with reference laboratory and medication chart review. The laboratory is regulated under CLIA as qualified to perform high-comple xity testing. This test is used for clinical purposes in conjunction with other laboratory tests. Ordering Provider: JAIME AWAD Report Released Date/Time: Aug 26, 2023 09:14 AM Reporting Lab: [address] [address] Performing Lab: [address] [address] [facility] METHADON E PANEL (STL) OXYCODONE CUTOFF [MASS/VOLU ME] IN URINE FOR SCREEN METHOD Negative ng/mL 09/30 Specimen Type: URINE Comment: The cut-off value for this test was laboratory developed and its performance characteris tics confirmed by the [facility] laboratory thru method comparison with reference laboratory and medication chart review. The laboratory is regulated under CLIA as qualified to perform high-comple xity testing. This test is used for clinical purposes in conjunction with other laboratory tests. Ordering Provider: JAIME AWAD Report Released Date/Time: Aug 26, 2023 09:14 AM Reporting Lab: [place] [address] [facility] [address] Performing Lab: [address] [address] [facility] METHADON E PANEL (STL) BUPRENORPH INE [PRESENCE] IN URINE Negative 09/30 Specimen Type: URINE Comment: The cut-off value for this test was laboratory developed and its performance characteris tics confirmed by the [facility] laboratory thru method comparison with reference laboratory and medication chart review. The laboratory is regulated under CLIA as qualified to perform high-comple xity testing. This test is used for clinical purposes in conjunction with other laboratory tests. Ordering Provider: JAIME AWAD Report Released Date/Time: Aug 26, 2023 09:14 AM Reporting Lab: [facility] [address] [place] [address] Performing Lab: [address] [address] [facility] METHADON E PANEL (STL) FENTANYL [PRESENCE] IN URINE Negative ng/mL 09/30 Specimen Type: URINE Comment: The cut-off value for this test was laboratory developed and its performance characteris tics confirmed by the [facility] laboratory thru method comparison with reference laboratory and medication chart review. The laboratory is regulated under CLIA as qualified to perform high-comple xity testing. This test is used for clinical purposes in conjunction with other laboratory tests. Ordering Provider: JAIME AWAD Report Released Date/Time: Aug 26, 2023 09:14 AM Reporting Lab: [address] [address] Performing Lab: [address] [address] [facility] HGA1C HEMOGLOBIN A1C/HEMOGL OBIN.TOTAL IN BLOOD 5.1 4.0 - 6.0 03/31 Specimen Type: BLOOD Comment: The cut-off value for this test was laboratory developed and its performance characteris tics confirmed by the [facility] laboratory thru method comparison with reference laboratory and medication chart review. The laboratory is regulated under CLIA as qualified to perform high-comple xity testing. This test is used for clinical purposes in conjunction with other laboratory tests. Ordering Provider: JAIME AWAD Report Released Date/Time: Mar 30, 2023 04:37 PM Reporting Lab: [address] [address] Performing Lab: [address] [address] [facility] METHADON E PANEL (STL) ETHANOL [MASS/VOLU ME] IN URINE Negative mg/dL 0 - 20 03/31 Specimen Type: URINE Comment: The cut-off value for this test was laboratory developed and its performance characteris tics confirmed by the [facility] laboratory thru method comparison with reference laboratory and medication chart review. The laboratory is regulated under CLIA as qualified to perform high-comple xity testing. This test is used for clinical purposes in conjunction with other laboratory tests. Ordering Provider: JAIME AWAD Report Released Date/Time: Mar 30, 2023 12:01 PM Reporting Lab: [address] [phone] Performing Lab: [address] [address] [facility] METHADON E PANEL (STL) AMPHETAMIN E [PRESENCE] IN URINE BY SCREEN METHOD Negative ng/mL 03/31 Specimen Type: URINE Comment: The cut-off value for this test was laboratory developed and its performance characteris tics confirmed by the [facility] laboratory thru method comparison with reference laboratory and medication chart review. The laboratory is regulated under CLIA as qualified to perform high-comple xity testing. This test is used for clinical purposes in conjunction with other laboratory tests. Ordering Provider: JAIME AWAD Report Released Date/Time: Mar 30, 2023 12:01 PM Reporting Lab: [address] [phone] Performing Lab: [address] [address] [facility] METHADON E PANEL (STL) BENZOYLECG ONINE [PRESENCE] IN URINE Negative ng/mL 03/31 Specimen Type: URINE Comment: The cut-off value for this test was laboratory developed and its performance characteris tics confirmed by the [facility] laboratory thru method comparison with reference laboratory and medication chart review. The laboratory is regulated under CLIA as qualified to perform high-comple xity testing. This test is used for clinical purposes in conjunction with other laboratory tests. Ordering Provider: JAIME AWAD Report Released Date/Time: Mar 30, 2023 12:01 PM Reporting Lab: [place] [address] [facility] [address] Performing Lab: [facility] [address] [facility] [address] [facility] METHADON E PANEL (STL) BENZODIAZE PINES [PRESENCE] IN URINE BY SCREEN METHOD Negative ng/mL 03/31 Specimen Type: URINE Comment: The cut-off value for this test was laboratory developed and its performance characteris tics confirmed by the [facility] laboratory thru method comparison with reference laboratory and medication chart review. The laboratory is regulated under CLIA as qualified to perform high-comple xity testing. This test is used for clinical purposes in conjunction with other laboratory tests. Ordering Provider: JAIME AWAD Report Released Date/Time: Mar 30, 2023 12:01 PM Reporting Lab: [place] [address] [facility] [address] Performing Lab: [place] [address] [facility] [address] [facility] METHADON E PANEL (STL) CANNABINOI DS [PRESENCE] IN URINE BY SCREEN METHOD Negative ng/mL 03/31 Specimen Type: URINE Comment: The cut-off value for this test was laboratory developed and its performance characteris tics confirmed by the [facility] laboratory thru method comparison with reference laboratory and medication chart review. The laboratory is regulated under CLIA as qualified to perform high-comple xity testing. This test is used for clinical purposes in conjunction with other laboratory tests. Ordering Provider: JAIME AWAD Report Released Date/Time: Mar 30, 2023 12:01 PM Reporting Lab: [place] [address] [facility] [address] Performing Lab: [place] [address] [facility] [address] [facility] METHADON E PANEL (STL) METHADONE [PRESENCE] IN URINE Negative ng/mL 03/31 Specimen Type: URINE Comment: The cut-off value for this test was laboratory developed and its performance characteris tics confirmed by the [facility] laboratory thru method comparison with reference laboratory and medication chart review. The laboratory is regulated under CLIA as qualified to perform high-comple xity testing. This test is used for clinical purposes in conjunction with other laboratory tests. Ordering Provider: JAIME AWAD Report Released Date/Time: Mar 30, 2023 12:01 PM Reporting Lab: [place] [address] [facility] [address] Performing Lab: [place] [address] [facility] [address] [facility] METHADON E PANEL (STL) OPIATES [PRESENCE] IN URINE BY SCREEN METHOD Negative ng/mL 03/31 Specimen Type: URINE Comment: The cut-off value for this test was laboratory developed and its performance characteris tics confirmed by the [facility] laboratory thru method comparison with reference laboratory and medication chart review. The laboratory is regulated under CLIA as qualified to perform high-comple xity testing. This test is used for clinical purposes in conjunction with other laboratory tests. Ordering Provider: JAIME AWAD Report Released Date/Time: Mar 30, 2023 12:01 PM Reporting Lab: [facility] [address] [facility] [address] Performing Lab: [address] [address] [facility] METHADON E PANEL (STL) CREATININE [MASS/VOLU ME] IN URINE 61.4 mg/dL 63 - 166 03/31 L Specimen Type: URINE Comment: The cut-off value for this test was laboratory developed and its performance characteris tics confirmed by the [facility] laboratory thru method comparison with reference laboratory and medication chart review. The laboratory is regulated under CLIA as qualified to perform high-comple xity testing. This test is used for clinical purposes in conjunction with other laboratory tests. Ordering Provider: JAIME AWAD Report Released Date/Time: Mar 30, 2023 12:01 PM Reporting Lab: [address] [place] [address] Performing Lab: [address] [address] [facility] METHADON E PANEL (STL) OXYCODONE CUTOFF [MASS/VOLU ME] IN URINE FOR SCREEN METHOD Negative ng/mL 03/31 Specimen Type: URINE Comment: The cut-off value for this test was laboratory developed and its performance characteris tics confirmed by the [facility] laboratory thru method comparison with reference laboratory and medication chart review. The laboratory is regulated under CLIA as qualified to perform high-comple xity testing. This test is used for clinical purposes in conjunction with other laboratory tests. Ordering Provider: JAIME AWAD Report Released Date/Time: Mar 30, 2023 12:01 PM Reporting Lab: [address] [address] Performing Lab: [address] [address] [facility] METHADON E PANEL (STL) BUPRENORPH INE [PRESENCE] IN URINE Negative 03/31 Specimen Type: URINE Comment: The cut-off value for this test was laboratory developed and its performance characteris tics confirmed by the [facility] laboratory thru method comparison with reference laboratory and medication chart review. The laboratory is regulated under CLIA as qualified to perform high-comple xity testing. This test is used for clinical purposes in conjunction with other laboratory tests. Ordering Provider: JAIME AWAD Report Released Date/Time: Mar 30, 2023 12:01 PM Reporting Lab: [address] [phone] Performing Lab: [address] [address] [facility] METHADON E PANEL (STL) FENTANYL [PRESENCE] IN URINE Negative ng/mL 03/31 Specimen Type: URINE Comment: The cut-off value for this test was laboratory developed and its performance characteris tics confirmed by the [facility] laboratory thru method comparison with reference laboratory and medication chart review. The laboratory is regulated under CLIA as qualified to perform high-comple xity testing. This test is used for clinical purposes in conjunction with other laboratory tests. Ordering Provider: JAIME AWAD Report Released Date/Time: Mar 30, 2023 12:01 PM Reporting Lab: [address] [phone] Performing Lab: [address] [address] [facility] LIPID PANEL (STL) CHOLESTERO L [MASS/VOLU ME] IN SERUM OR PLASMA 158 mg/dL 0 - 200 03/31 Specimen Type: PLASMA Comment: No hemolysis noted. Ordering Provider: JAIME AWAD Report Released Date/Time: Mar 30, 2023 04:37 PM Reporting Lab: [address] [address] Performing Lab: [address] [address] [facility] LIPID PANEL (STL) TRIGLYCERI DE [MASS/VOLU ME] IN SERUM OR PLASMA 129 mg/dL 0 - 150 03/31 Specimen Type: PLASMA Comment: No hemolysis noted. Ordering Provider: JAIME AWAD Report Released Date/Time: Mar 30, 2023 04:37 PM Reporting Lab: [address] [address] Performing Lab: [address] [address] [facility] LIPID PANEL (STL) CHOLESTERO L IN LDL [MASS/VOLU ME] IN SERUM OR PLASMA BY RAO N 84 mg/dL 03/31 Specimen Type: PLASMA Comment: No hemolysis noted. Ordering Provider: JAIME AWAD Report Released Date/Time: Mar 30, 2023 04:37 PM Reporting Lab: [address] [address] Performing Lab: [address] [address] [facility] LIPID PANEL (STL) CHOLESTERO L IN HDL [MASS/VOLU ME] IN SERUM OR PLASMA 48 mg/dL 03/31 Specimen Type: PLASMA Comment: No hemolysis noted. Ordering Provider: JAIME AWAD Report Released Date/Time: Mar 30, 2023 04:37 PM Reporting Lab: [address] [address] Performing Lab: [address] [address] [facility] CBC LEUKOCYTES [#/VOLUME] IN BLOOD BY AUTOMATED COUNT 3.9 10*3/uL 3.6 - 11.2 03/31 Specimen Type: BLOOD No comment entered. Ordering Provider: JAIME AWAD Report Released Date/Time: Mar 30, 2023 04:37 PM Reporting Lab: [address] [address] Performing Lab: [address] [address] [facility] CBC ERYTHROCYT ES [#/VOLUME] IN BLOOD BY AUTOMATED COUNT 3.93 10*6/uL 4.10 - 5.70 03/31 L Specimen Type: BLOOD No comment entered. Ordering Provider: JAIME AWAD Report Released Date/Time: Mar 30, 2023 04:37 PM Reporting Lab: [address] [address] Performing Lab: [address] [address] [facility] CBC HEMOGLOBIN [MASS/VOLU ME] IN BLOOD 13.0 g/dL 13.1 - 16.8 03/31 L Specimen Type: BLOOD No comment entered. Ordering Provider: JAIME AWAD Report Released Date/Time: Mar 30, 2023 04:37 PM Reporting Lab: [address] [address] Performing Lab: [address] [address] [facility] CBC HEMATOCRIT [VOLUME FRACTION] OF BLOOD 38.7 38.2 - 48.4 03/31 Specimen Type: BLOOD No comment entered. Ordering Provider: JAIME AWAD Report Released Date/Time: Mar 30, 2023 04:37 PM Reporting Lab: [address] [address] Performing Lab: [address] [address] [facility] CBC MCV [ENTITIC VOLUME] BY AUTOMATED COUNT 98.5 fL 80.0 - 100.0 03/31 Specimen Type: BLOOD No comment entered. Ordering Provider: JAIME AWAD Report Released Date/Time: Mar 30, 2023 04:37 PM Reporting Lab: [address] [address] Performing Lab: [address] [address] [facility] CBC MCH [ENTITIC MASS] BY AUTOMATED COUNT 33.1 pg 27.0 - 34.0 03/31 Specimen Type: BLOOD No comment entered. Ordering Provider: JAIME AWAD Report Released Date/Time: Mar 30, 2023 04:37 PM Reporting Lab: [address] [address] Performing Lab: [address] [address] [facility] CBC MCHC [MASS/VOLU ME] BY AUTOMATED COUNT 33.6 g/dL 33.0 - 36.0 03/31 Specimen Type: BLOOD No comment entered. Ordering Provider: JAIME AWAD Report Released Date/Time: Mar 30, 2023 04:37 PM Reporting Lab: [address] [address] Performing Lab: [address] [place] [address] [facility] CBC PLATELETS [#/VOLUME] IN BLOOD BY AUTOMATED COUNT 169 10*3/uL 150 - 400 03/31 Specimen Type: BLOOD No comment entered. Ordering Provider: JAIME AWAD Report Released Date/Time: Mar 30, 2023 04:37 PM Reporting Lab: [address] [address] Performing Lab: [address] [address] [facility] CBC PLATELET MEAN VOLUME [ENTITIC VOLUME] IN BLOOD BY AUTOMATED COUNT 10.5 fL 7.5 - 11.2 03/31 Specimen Type: BLOOD No comment entered. Ordering Provider: JAIME AWAD Report Released Date/Time: Mar 30, 2023 04:37 PM Reporting Lab: [address] [address] Performing Lab: [address] [address] [facility] CBC ERYTHROCYT E DISTRIBUTI ON WIDTH [RATIO] BY AUTOMATED COUNT 14.0 11.8 - 15.1 03/31 Specimen Type: BLOOD No comment entered. Ordering Provider: JAIME AWAD Report Released Date/Time: Mar 30, 2023 04:37 PM Reporting Lab: [address] [address] Performing Lab: [address] [address] [facility] CBC LYMPHOCYTE S/100 LEUKOCYTES IN BLOOD BY AUTOMATED COUNT 30 03/31 Specimen Type: BLOOD No comment entered. Ordering Provider: JAIME AWAD Report Released Date/Time: Mar 30, 2023 04:37 PM Reporting Lab: [address] [address] Performing Lab: [address] [address] [facility] CBC MONOCYTES/ 100 LEUKOCYTES IN BLOOD BY AUTOMATED COUNT 11 03/31 Specimen Type: BLOOD No comment entered. Ordering Provider: JAIME AWAD Report Released Date/Time: Mar 30, 2023 04:37 PM Reporting Lab: [facility] [address] [place] [address] Performing Lab: [facility] [address] [place] [phone] [facility] CBC NEUTROPHIL S/100 LEUKOCYTES IN BLOOD BY AUTOMATED COUNT 52 03/31 Specimen Type: BLOOD No comment entered. Ordering Provider: JAIME AWAD Report Released Date/Time: Mar 30, 2023 04:37 PM Reporting Lab: [address] [address] Performing Lab: [address] [phone] CBC EOSINOPHIL S/100 LEUKOCYTES IN BLOOD BY AUTOMATED COUNT 6 03/31 Specimen Type: BLOOD No comment entered. Ordering Provider: JAIME AWAD Report Released Date/Time: Mar 30, 2023 04:37 PM Reporting Lab: [address] [address] Performing Lab: [address] [address] [facility] CBC BASOPHILS/ 100 LEUKOCYTES IN BLOOD BY AUTOMATED COUNT 1 03/31 Specimen Type: BLOOD No comment entered. Ordering Provider: JAIME AWAD Report Released Date/Time: Mar 30, 2023 04:37 PM Reporting Lab: [address] [address] Performing Lab: [address] [address] [facility] CBC LYMPHOCYTE S [#/VOLUME] IN BLOOD BY AUTOMATED COUNT 1.17 10*3/uL 0.77 - 4.50 03/31 Specimen Type: BLOOD No comment entered. Ordering Provider: JAIME AWAD Report Released Date/Time: Mar 30, 2023 04:37 PM Reporting Lab: [place] [phone] Performing Lab: [address] [address] [facility] CBC MONOCYTES [#/VOLUME] IN BLOOD BY AUTOMATED COUNT 0.42 10*3/uL 0.19 - 1.50 03/31 Specimen Type: BLOOD No comment entered. Ordering Provider: JAIME AWAD Report Released Date/Time: Mar 30, 2023 04:37 PM Reporting Lab: [place] [address] Performing Lab: [place] [phone] CBC NEUTROPHIL S [#/VOLUME] IN BLOOD BY AUTOMATED COUNT 2.01 10*3/uL 2.10 - 8.00 03/31 L Specimen Type: BLOOD No comment entered. Ordering Provider: JAIME AWAD Report Released Date/Time: Mar 30, 2023 04:37 PM Reporting Lab: [place] [phone] Performing Lab: [address] [address] [facility] CBC EOSINOPHIL S [#/VOLUME] IN BLOOD BY AUTOMATED COUNT 0.23 10*3/uL 0.00 - 0.60 03/31 Specimen Type: BLOOD No comment entered. Ordering Provider: JAIME AWAD Report Released Date/Time: Mar 30, 2023 04:37 PM Reporting Lab: [place] [phone] Performing Lab: [address] [address] [facility] CBC BASOPHILS [#/VOLUME] IN BLOOD BY AUTOMATED COUNT 0.02 10*3/uL 0.00 - 0.20 03/31 Specimen Type: BLOOD No comment entered. Ordering Provider: JAIME AWAD Report Released Date/Time: Mar 30, 2023 04:37 PM Reporting Lab: [address] [address] Performing Lab: [place] [address] [facility] [address] [facility] VITAMIN D, 25-HYDRO XY 25-HYDROXY VITAMIN D3 [...] Mar 30, 2023 04:37 PM Reporting Lab: [address] [address] Performing Lab: [address] [address] [facility] B12 COBALAMIN (VITAMIN B12) [MASS/VOLU ME] IN [...] Mar 30, 2023 04:37 PM Reporting Lab: [address] [address] Performing Lab: [address] [address] [facility] Vital Signs Combined list of inpatient and outpatient Vital Signs from Department of Defense and Veterans Affairs, ranging from 12 months to all on record, depending upon the facility. Vital Sign Value Date Comments Source SYSTOLIC BLOOD PRESSURE 122 10/11/2024 10:15:54 [facility] DIASTOLIC BLOOD PRESSURE 74 10/11/2024 10:15:54 [facility] PULSE OXIMETRY 100 10/11/2024 10:15:54 [facility] WEIGHT 161.2 10/11/2024 10:15:[facility] BMI 23 kg/m2 10/11/2024 10:15:54 [facility] PAIN 0 10/11/2024 10:15:54 [facility] TEMPERATURE 97.5 10/11/2024 10:15:54 [facility] PULSE 57 10/11/2024 10:15:54 [facility] RESPIRATION 18 10/11/2024 10:15:54 [facility] SYSTOLIC BLOOD PRESSURE 134 03/30/2024 09:14:54 [facility] DIASTOLIC BLOOD PRESSURE 80 03/30/2024 09:14:54 [facility] WEIGHT 160.1 03/30/2024 09:14:54 [facility] BMI 23 kg/m2 03/30/2024 09:14:54 [facility] PAIN 4 03/30/2024 09:14:54 [facility] TEMPERATURE 98.1 03/30/2024 09:14:54 [facility] PULSE 96 03/30/2024 09[facility]14:[facility] RESPIRATION 20 03/30/2024 09:14:54 [facility] Encounters Combined list of: 1) Encounters from Department of Veterans Affairs facilities going backup to the last 18 months, not all VA inpatient encounters are included; 2) Encounters from the Department of Defense facilities going backup to 280 months. Location Location Details Encounter Type Encounter Number Reason For Visit Attending Provider ADM Date DC Date Status Disposition Source [facility] OFFICE O/P EST MOD 30-39 MIN [id number] Diagnos is: ICD-10- CM H25.11 Age-rel ated nuclear catarac t, right eye MANSI RAMESH TTHEW C 09/14 [facility] HC PRO PHONE CALL 5-10 MIN [id number] NEVAEH RAMOS Ena 09/27 [facility] Outpatient Encounter [id number] 09/30 [facility] OFFICE O/P EST MOD 30-39 MIN [id number] Diagnos is: ICD-10- CM E78.5 Hyperli pidemia , unspeci fied JOSEPH AWAD BY R 09/30 [facility] Outpatient Encounter [id number] 01/10 [facility] Outpatient Encounter [id number] ZACK HERNANDEZ Sherry 02/06 [facility] OFFICE O/P EST MOD 30 MIN [id number] Diagnos is: ICD-10- CM E78.5 Hyperli pidemia , unspeci JOSEPH Fan BY R 03/30 [facility] Outpatient Encounter [id number] 07/11 [facility] Outpatient Encounter [id number] 08/20 [facility] COMPRE [place] 1/ [id number] Diagnos is: ICD-10- CM H25.11 Age-rel ated nuclear catarac t, right eye АЛЕКСАНДР MILLIGAN 09/17 [facility] OFFICE O/P EST MOD 30 MIN [id number] Diagnos is: ICD-10- CM E78.5 Hyperli pidemia , unspeci fied AWADJOSEPH Zambrano 10/11 [facility] Outpatient Encounter [id number] 10/18 [facility] En[facility] [id number] 11/13 [facility] En[facility] [id number] 11/14 [facility] Outpatient Encounter [id number] ZACK HERNANDEZ 11/15 [facility] Outpatient Encounter [id number] 11/26 [facility] Outpatient Encounter [id number] 11/26 [facility] Outpatient Encounter [id number] 01/04 [facility] Outpatient Encounter [id number] ZACK HERNANDEZ 01/04 [facility] Outpatient Encounter [id number] 02/11 [facility] Outpatient Encounter [id number] 03/07 [facility] Social History Combined list of available smoking, tobacco, and other social history from Department of Defense and Veterans Affairs facilities. Social History Type Response Date Comment Sourc e Tobacco smoking status NHIS VA-TOBACCO NEVER USED CIGARETTES 10/11/2024 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 [facility] History of tobacco use VA-TOBACCO USER EVERY DAY 04/20/2018 [facility] History of tobacco use TOBACCO USER OFFERED MEDS 03/13/2018 [facility] History of tobacco use TOBACCO USER OFFERED MEDS 10/10/2017 [facility] History of tobacco use CURRENT TOBACCO USER 03/28/2017 [facility] History of tobacco use CURRENT TOBACCO USER 03/14/2017 [facility] History of tobacco use CURRENT TOBACCO USER 05/31/2016 [facility] History of tobacco use CURRENT TOBACCO USER 06/18/2015 Kathryn HER [facility] History of tobacco use CURRENT TOBACCO USER 06/17/2014 [facility] History of tobacco use CURRENT TOBACCO USER 05/02/2013 [facility] History of tobacco use CURRENT TOBACCO USER 04/19/2012 [facility] History of tobacco use CURRENT TOBACCO USER 02/09/2011 [facility] Plan of Care List of future care activities from Department of Veterans Affairs facilities. Additional future care activities may be listed in the Assessment and Plan section. Date/Time Care Activity Care Activity Detail Facili ty 04/19/2025 AMBULATORY - MEDICINE AMBULATORY - MEDICI NE [facility] Advance Directives List of completed, amended, or rescinded Advance Directives on record at Department of [facility] facilities. An actual copy of the Directive is not included. Date Advance Directive Provider Source 03/17/2011 ADVANCE DIRECTIVE DISCUSSION JADE MARTINEZ [facility]
== END 2025-03-14 08:14 | disposition home or self-care (01) ==
PROVIDERS: PCP Family Medicine; Visit Provider Psychiatry & Neurology Neurology
DX: M54.2 Cervicalgia (principal); G60.9 Hereditary and idiopathic neuropathy, unspecified; G45.9 Transient cerebral ischemic attack, unspecified; I67.9 Cerebrovascular disease, unspecified; R29.6 Repeated falls
CPT/HCPCS: 93880

== ENCOUNTER 2025-03-28 09:37 | Outpatient (CLI) | payer MEDICARE, SELFPAY ==
--- NOTE | 2025-03-28 10:03 | ECHO_ITS ---
Patient Info Name: Chung Mueller Age: 74 years : 1950 Gender: Male Ht: 70 in Wt: 164 lbs BSA: 1.92 m2 BP: 112 / 68 mmHg Exam Date: 03/28/2025 10:15 AM Patient Status: O Admit Date: 03/28/2025 Exam Type: CA echo doppler w bubble study Complete two-dimensional, color flow and Doppler transthoracic echocardiogram is performed with agitated saline. Pbx Operator: Leti Rene Attending Provider: Juanito Galvez Contrast/Agitated Saline Contrast/Ag. Saline: Agitated Saline Amount: 20.00 ml Administered By: Leti Rene Existing IV Access: No New IV Access: Right and Antecubital Space Site Condition: IV removed Summary 1. Left ventricular chamber dimension is normal. 2. Left ventricular systolic function is normal, estimated at 60-65. 3. The left ventricular diastolic function is normal. 4. E/e' 8 is minimally elevated. 5. Left atrial chamber dimension is mildly enlarged. 6. There is mild aortic valve sclerosis. 7. There is trace aortic valve regurgitation. 8. The mitral valve has a mildly calcified annulus. 9. There is trace tricuspid valve regurgitation. 10. There is trace pulmonic regurgitation. Left Ventricle Left ventricular chamber dimension is normal. Left ventricular systolic function is normal, estimated at 60-65. The left ventricular diastolic function is normal. E/e' 8 is minimally elevated. Right Ventricle Right ventricular chamber dimension is normal. Right ventricular systolic function is normal and with normal TAPSE 2.4 cm. Left Atria Left atrial chamber dimension is mildly enlarged. Right Atria Right atrial chamber dimension is normal. Atrial Septum Intact interatrial septum visualized by 2D and agitated saline imaging. Agitated saline injection with and without valsalva maneuver opacified right side cardiac chambers without shunt to left side cardiac chambers. Aortic Valve The aortic valve is trileaflet. There is mild aortic valve sclerosis. There is no aortic valve stenosis. There is trace aortic valve regurgitation. Pulmonic Valve There is trace pulmonic regurgitation. Mitral Valve The mitral valve has a mildly calcified annulus. There is no mitral valve stenosis. There is no mitral valve regurgitation. Tricuspid Valve There is trace tricuspid valve regurgitation. RVSP is not measured due to an inadequate TR jet. Pericardium/Pleural There is no pericardial effusion. Inferior Vena Cava Normal inferior vena cava with >50% collapse upon inspiration consistent with normal right atrial pressure, 5 mmHg. Aorta The aortic root size at the sinus of Valsalva is normal. Left Ventricular Outflow Tract Name Value Normal LVOT 2D LVOT Diameter 2.0 cm LVOT Doppler LVOT Peak Velocity 99 cm/s LVOT Peak Gradient 4 mmHg LVOT Mean Gradient 2 mmHg LVOT VTI 26 cm LVOT VTI/AV VTI Ratio 0.9 LVOT Stroke Volume 82 ml LVOT CO 8.5 l/min LVOT CI 4.4 l/min/m2 Pulmonic Valve Name Value Normal RVOT Doppler RVOT Peak Velocity 66 cm/s RVOT Peak Gradient 2 mmHg PV Doppler PV Peak Velocity 97 cm/s PV Peak Gradient 4 mmHg Mitral Valve Name Value Normal MV Diastolic Function MV E Peak Velocity 71 cm/s MV A Peak Velocity 70 cm/s MV E/A 1.0 MV Decel Time (PW) 299 ms MV Annular TDI MV E/e' (Septal) 7.2 MV E/e' (Lateral) 9.6 MV E/e' (Average) 8.4 Tricuspid Valve Name Value Normal Estimated PAP/RSVP RA Pressure 5 mmHg <=5 Aortic Valve Name Value Normal AV Doppler AV Peak Velocity 113 cm/s AV Peak Gradient 5 mmHg AV Mean Gradient 3 mmHg AV VTI 29 cm AV Area (Cont Eq VTI) 2.9 cm2 >=3.0 AV Area (Cont Eq Everett) 2.8 cm2 AV DI (Everett) 0.88 AV Regurgitation 2D LVOT Area 3.2 cm2 Ventricles Name Value Normal LV Dimensions 2D/MM IVS Diastolic Thickness (2D) 1.0 cm 0.6-1.0 LVID Diastole (2D) 4.5 cm 4.2-5.8 LVIW Diastolic Thickness (2D) 0.8 cm 0.6-1.0 LVID Systole (2D) 2.8 cm 2.5-4.0 LVOT Diameter 2.0 cm LV Mass (2D Cubed) 138.16 g 88.00-224.00 LV Mass Index (2D Cubed) 72 g/m2 49-115 Relative Wall Thickness (2D) 0.36 <=0.42 LV Fractional Shortening/Ejection Fraction 2D/MM LV Fractional Shortening (2D) 38 % 25-43 LV EF (2D Teichholz) 69 % LV Diastolic Volume (4C MOD) 91 ml LV EF (4C MOD) 62 % LV Diastolic Volume (2C MOD) 81 ml LV EF (2C MOD) 61 % LV Diastolic Volume (BP MOD) 88 ml 62-150 LV Diastolic Volume Index (BP MOD) 46 ml/m2 34-74 LV Systolic Volume (BP MOD) 33 ml 21-61 LV Systolic Volume Index (BP MOD) 17 ml/m2 11-31 LV EF (BP MOD) 63 % 52-72 LV Diastolic Length (4C) 7.4 cm LV Systolic Length (4C) 6.3 cm LV Stroke Volume (4C MOD) 57 ml Atria Name Value Normal LA Dimensions LA Volume (4C A-L) 40 ml LA Volume (BP A-L) 47 ml RA Dimensions RA Systolic Major Hertford Length (4C) 5.3 cm 2.1-2.7 RA Area (4C) 19.0 cm2 <=18.0 Report Signatures
== END 2025-03-28 09:38 | disposition home or self-care (01) ==
PROVIDERS: PCP Family Medicine; Visit Provider Psychiatry & Neurology Neurology
DX: I35.0 Nonrheumatic aortic (valve) stenosis (principal); G60.9 Hereditary and idiopathic neuropathy, unspecified; G45.9 Transient cerebral ischemic attack, unspecified; I67.9 Cerebrovascular disease, unspecified; R29.6 Repeated falls
CPT/HCPCS: 93306; 96375

== ENCOUNTER 2025-04-10 10:11 | Emergency (ER) | payer MEDICARE, SELFPAY ==
--- OUTSIDE RECORDS SUMMARY | 2025-04-10 10:19 | XMS_ITS | Encounter Summary ---
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 Date/Time Encounter Type Encounter Description Reason Provider Source Oct 11, 2024 10:30 AM OFFICE O/P EST MOD 30 MIN PRIMARY CARE/MEDICINE ICD-10-CM E78.5 Hyperlipidemia, unspecified LAVERN AWAD Encounter Template Text not used by [place] Assessments - Encounter Diagnoses This section includes the primary and secondary diagnoses documented for the Encounter. Date/Time Primary/Secondary Diagnosis Diagnosis Name Provider Source Oct 11, 2024 12:14 PM PRIMARY Hyperlipidemia, unspecified LAVERN AWAD [facility] Oct 11, 2024 12:14 PM SECONDARY Gout, unspecified LAVERN AWAD [facility] Oct 11, 2024 12:14 PM SECONDARY Idiopathic progressive neuropathy LAVERN AWAD [facility] Oct 11, 2024 12:14 PM SECONDARY Male erectile dysfunction, unspecified LAVERN AWAD [facility] Oct 11, 2024 12:14 PM SECONDARY Other vitamin B12 deficiency anemias LAVERN AWAD [facility] Oct 11, 2024 12:14 PM SECONDARY Post-traumatic stress disorder, unspecified LAVERN AWAD [facility] Oct 11, 2024 12:14 PM SECONDARY Prediabetes LAVERN AWAD [facility] Oct 11, 2024 12:14 PM SECONDARY Rash and other nonspecific skin eruption LAVERN AWAD [facility] Oct 11, 2024 12:14 PM SECONDARY Tinnitus, unspecified ear LAVERN AWAD [facility] Oct 11, 2024 12:14 PM SECONDARY Tobacco use LAVERN AWAD [facility] Oct 11, 2024 12:14 PM SECONDARY Transient cerebral ischemic attack, unspecified LAVERN AWAD [facility] Oct 11, 2024 12:14 PM SECONDARY Vitamin D deficiency, unspecified LAVERN AWAD Kathryn [facility] Lab Results: +/- 30 days [...] Type Result - Unit Interpretation Reference Range Specimen Type Comment Oct 16, 2024 09:03 AM [facility] URINE DRUG SCREEN (STL) URINE Specimen Type: URINE Comment: The cut-off value for Fentanyl was laboratory developed and its performance characteristics confirmed by the [facility] laboratory thru method comparison with reference laboratory and medication chart review. The laboratory is regulated under CLIA as qualified to perform high-complexity testing. Fentanyl is used for clinical purposes in conjunction with other laboratory tests. Ordering Provider: LAVERN AWAD Report Released Date/Time: Oct 11, 2024 10:37 AM Reporting Lab: [facility] [address] [address] Performing Lab: [facility] [address] [id number] ETHANOL 63 mg/dL H 0-9 AMPHET/METHAMPHETAMINE Negative ng/mL COCAINE METABOLITES Negative ng/mL BENZODIAZEPINES (STL) Negative ng/mL CANNABINOIDS Negative ng/mL METHADONE Negative ng/mL OPIATES Negative ng/mL CREATININE URINE/OTHERS 71.9 mg/dL 63-16 6 OXYCODONE (JIUHC-QOT-OL) Negative ng/mL BUPRENORPHINE (STL-PB-MA) Negative ng/mL FENTANYL (STL) Negative ng/mL Vital Signs: All taken on the encounter date This section contains inpatient and outpatient Vital Signs collected on the date of the Encounter. Date/Time Temperature Pulse Blood Pressure Respiratory Rate SP02 Pain Height Weight Body Mass Index Source Oct 11, 2024 10:15 AM 97.5 57 122/74 18 100 0 161.2 23 [facility] Social History: Smoking Status (Most current) and Tobacco Use (All prior to encounter date) This section includes the most current, and the historical, smoking and tobacco- related health factors from the [place] facility where the Encounter took place. Current Smoking Status This section includes the most current smoking, or tobacco-related health factor, from the [place] facility where the Encounter took place. Date/Time Current Smoking Status Comment Facil ity Oct 11, 2024 10:30 AM VA-TOBACCO NEVER U SED CIGARETTES [facility] Tobacco Use History This section includes a history of the smoking, or tobacco-related health factors, that were collected on or before the date of the Encounter. The data comes from the [place] facility where the Encounter took place. Date/Time Smoking Status/Tobacco Use Comment F acility Oct 11, 2024 10:30 AM SD-TOBACCO SCREEN FOLLOW-UP [facility] Oct 11, 2024 10:30 AM VA-TOBACCO USE ADVICE [facility] Oct 11, 2024 10:30 AM VA-TOBACCO USE PLATEN PRESS OPERATOR NO [facility] Oct 11, 2024 10:30 AM VA-TOBACCO USE MED NO [facility] Oct 11, 2024 10:30 AM VA-TOBACCO USE JOANNE E DAYS CIGARS/PIPES [facility] Oct 11, 2024 10:30 AM VA-TOBACCO USE JOANNE E DAYS OTHER TYPE [facility] February 05, 2022 11:30 AM VA-TOBACCO USE 30 YEARS OR MORE [facility] February 05, 2022 11:30 AM VA-TOBACCO USE ADVICE [facility] February 05, 2022 11:30 AM VA-TOBACCO USE 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 PRESS OPERATOR NO [facility] February 05, 2022 11:30 AM VA-TOBACCO USE MED NO [facility] February 05, 2022 11:30 AM VA-TOBACCO USE WI 30 MIN OF WAKEUP [facility] February 05, 2022 11:30 AM VA-TOBACCO USER EVERY DAY [facility] Apr 20, 2018 11:40 AM VA-TOBACCO USE 30 YEARS OR MORE [facility] Apr 20, 2018 11:40 AM VA-TOBACCO USE ADVICE [facility] Apr 20, 2018 11:40 AM VA-TOBACCO USE 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 PRESS OPERATOR NO [facility] Apr 20, 2018 11:40 AM VA-TOBACCO USE MED NO [facility] Apr 20, 2018 11:40 AM VA-TOBACCO USE WI 30 MIN OF WAKEUP [facility] Apr 20, 2018 11:40 AM VA-TOBACCO USER EVERY DAY [facility] Mar 13, 2018 01:55 PM CURRENT TOBACCO USER [facility] Mar 13, 2018 01:55 PM CURRENT TOBACCO US ER (NOT READY TO QUIT) [facility] Mar 13, 2018 01:55 PM TOBACCO CESSATION REFERRAL DECLINED [facility] Mar 13, 2018 01:55 PM TOBACCO MEDS OFFER ED BUT DECLINED [facility] Mar 13, 2018 01:55 PM TOBACCO USER OFFERED MEDS [facility] Oct 10, 2017 12:55 PM CURRENT TOBACCO USER [facility] Oct 10, 2017 12:55 PM CURRENT TOBACCO US ER (NOT READY TO QUIT) [facility] Oct 10, 2017 12:55 PM TOBACCO CESSATION REFERRAL DECLINED [facility] Oct 10, 2017 12:55 PM TOBACCO MEDS OFFER ED BUT DECLINED [facility] Oct 10, 2017 12:55 PM TOBACCO USER OFFERED MEDS [facility] Mar 28, 2017 09:10 AM CURRENT TOBACCO USER [facility] Jun 18, 2015 09:04 AM CURRENT TOBACCO USER [facility] Jun 18, 2015 09:04 AM TOBACCO MEDS OFFER ED BUT DECLINED [facility] Jun 17, 2014 08:50 AM CURRENT TOBACCO USER [facility] Jun 17, 2014 08:50 AM TOBACCO MEDS OFFER ED BUT DECLINED [facility] May 02, 2013 02:15 PM CURRENT TOBACCO USER [facility] May 02, 2013 02:15 PM TOBACCO MEDS OFFER ED BUT DECLINED [facility] Apr 19, 2012 08:17 AM CURRENT TOBACCO USER [facility] Apr 19, 2012 08:17 AM TOBACCO MEDS OFFER ED BUT DECLINED [facility] February 09, 2011 07:45 AM CURRENT TOBACCO USER [facility] February 09, 2011 07:45 AM TOBACCO MEDS OFFER ED BUT DECLINED [facility] Advance Directives: All historical and current Section Date Range: From patient's date of to the date document was created. This section includes ALL of a patient's completed or amended [place] Advance and Rescinded Directives. The entries below indicate that a directive exists for the patient, but an actual copy is not included with this document. The data comes from all [place] facilities. Date Advance Directives Provider Source Mar 17, 2011 ADVANCE DIRECTIVE DISCUSSION JADE MARTINEZ [facility] Encounter Notes: All associated encounter notes This section contains the clinical notes associated to the Encounter. Date/Time Encounter Note(s) Provider Source Mar 28, 2025 09:40 AM ACCOUNTING OF DISC LOSURES NOTE: LOCAL TITLE: STATE PRESCRIPTION DRUG MONITORING PROGRAM STANDARD TITLE: ACCOUNTING OF DISCLOSURES NOTE DATE OF NOTE: MAR 28, 2025@09:40:31 ENTRY DATE: MAR 28, 2025@09:40:31 AUTHOR: KAYODE PERRY EXP COSIGNER: DEMI CABRERA URGENCY: STATUS: COMPLETED This PDMP query was submitted by Kayode Perry on behalf of Demi Cabrera. The clinical justification for this PDMP query is to review controlled substances prescribed outside of the VA, and any additional information that may become available, as an important component of standard clinical care, and in accordance with [facility] policy. Patient information was shared with the PDMP Appriss Hus[facility]. The VA prescriber, for which I am a delegate, will be alerted of these PDMP findings through co-signature of this progress note. No prescription(s) for controlled substances outside the VA were found in the last 90 days. 08/20/2024 1 08/20/2024 Pregabalin 150 Mg Capsule 90.00 30 Ve Noemy [id number] [facility] ([id number][place] 0 [place] 03/24/2024 1 01/10/2024 Pregabalin 150 Mg Capsule 90.00 30 Ve Noemy [id number] [facility] (8559[place] 1 [place] 01/10/2024 1 01/10/2024 Pregabalin 150 Mg Capsule 90.00 30 Ve Noemy [id number] [facility] (8559[place] // Kayode ePrry Rn, BSN REGISTERED NURSE Signed: 03/28/2025 09:40 /lidia/ DEMI CABRERA Staff Physician Cosigned: 03/28/2025 09:56 KAYODE PERRY [facility] February 11, 2025 12:18 PM ACCOUNTING OF DISC LOSURES NOTE: LOCAL TITLE: STATE PRESCRIPTION DRUG MONITORING PROGRAM STANDARD TITLE: ACCOUNTING OF DISCLOSURES NOTE DATE OF NOTE: FEBRUARY 11, 2025@12:18:02 ENTRY DATE: FEBRUARY 11, 2025@12:18:02 AUTHOR: LAVERN AWAD EXP COSIGNER: URGENCY: STATUS: COMPLETED This PDMP query was submitted by Lavern Awad YARDER ENGINEER. The clinical justification for this PDMP query is to review controlled substances prescribed outside of the VA, and any additional information that may become available, as an important component of standard clinical care, and in accordance with [facility] policy. Patient information was shared with the [facility] Appriss Huson. No prescription(s) for controlled substances outside the VA were found in the last 90 days. /lidia/ Lavern Awad DNP, AUTOMATIC PILOT MECHANIC, TOWN JUSTICE-C Primary Care Nurse Practitioner Signed: 02/11/2025 12:18 [facility] February 11, 2025 12:18 PM PHARMACY NOTE: LOCAL TITLE: CONTROLLED SUBSTANCES PRESCRIBING STL STANDARD TITLE: PHARMACY NOTE DATE OF NOTE: FEBRUARY 11, 2025@12:18 ENTRY DATE: FEBRUARY 11, 2025@12:18:23 AUTHOR: LAVERN AWAD EXP COSIGNER: URGENCY: STATUS: [...] Note DT Title Author Last Kehinde DT 02/11/2025 STATE PRESCRIPTION DRUG LAVERN AWAD MONITORING PROGRAM 10/16/2019 STATE PRESCRIPTION DRUG MORENO JACKSON MONITORING PROGRAM (SPDMP) Is the State Prescription Drug Monitoring Program Database Query current according to local [facility] policy? Yes Step 2: Opioid Risk Review [...] with continuation of long-term opioid therapy; local STL policy require UDS to be done at [...] 09:03 OPIATES Negative ng/mL 04/09/2024 08:37 OXYCODONE (QWWUX-XZI-AG) Negative ng/mL 10/16/2024 09:03 OXYCODONE (TGTVM-GTT-IM) Negative ng/mL 04/09/2024 08:37 BUPRENORPHINE (STL-PB-MA) Negative [...] treating cancer pain or for Hospice patients No Will contact patient to come in for consent to be completed. VA/DoD CDC guidelines for opioid prescribing for chronic pain recommend f/u within 1-4 weeks for opioid dosage changes and =3 months for stable renewals, at a minimum, and more frequently if clinically indicated. RTC: Future Appointments: 04/19/2025 10:00 ROMAINE-ST CLR PACT 3 PCP 09/18/2025 10:30 RAFY-OPTOMETRY 3 Follow up appointment already scheduled. /lidia/ Lavern Awad DNP, AUTOMATIC PILOT MECHANIC, TOWN JUSTICE-C Primary Care Nurse Practitioner Signed: 02/11/2025 12:18 LAVERN AWAD [facility] Jan 04, 2025 01:23 PM PHARMACY NOTE: LOCAL TITLE: CONTROLLED SUBSTANCES PRESCRIBING STL STANDARD TITLE: PHARMACY NOTE DATE OF NOTE: JAN 04, 2025@13:23 ENTRY DATE: JAN 04, 2025@13:23:33 AUTHOR: LAVERN AWAD EXP COSIGNER: URGENCY: STATUS: [...] Note DT Title Author Last Kehinde DT 01/04/2025 STATE PRESCRIPTION DRUG LAVERN AWAD MONITORING PROGRAM 10/16/2019 STATE PRESCRIPTION DRUG MORENO JACKSON MONITORING PROGRAM (SPDMP) Is the State Prescription Drug Monitoring Program Database Query current according to local [facility] policy? Yes Step 2: Opioid Risk Review [...] with continuation of long-term opioid therapy; local STL policy require UDS to be done at [...] 09:03 OPIATES Negative ng/mL 04/09/2024 08:37 OXYCODONE (GDSVW-DVY-IP) Negative ng/mL 10/16/2024 09:03 OXYCODONE (IFGYE-WSN-HL) Negative ng/mL 04/09/2024 08:37 BUPRENORPHINE (STL-PB-MA) Negative [...] treating cancer pain or for Hospice patients No Will contact patient to come in for consent to be completed. VA/DoD CDC guidelines for opioid prescribing for chronic pain recommend f/u within 1-4 weeks for opioid dosage changes and =3 months for stable renewals, at a minimum, and more frequently if clinically indicated. RTC: Future Appointments: 04/19/2025 10:00 ROMAINE-ST CLR PACT 3 PCP 09/18/2025 10:30 RAFY-OPTOMETRY 3 Follow up appointment already scheduled. /lidia/ Lavern Awad DNP, AUTOMATIC PILOT MECHANIC, TOWN JUSTICE-C Primary Care Nurse Practitioner Signed: 01/04/2025 13:24 [facility] Jan 04, 2025 01:22 PM ACCOUNTING OF DISC LOSURES NOTE: LOCAL TITLE: STATE PRESCRIPTION DRUG MONITORING PROGRAM STANDARD TITLE: ACCOUNTING OF DISCLOSURES NOTE DATE OF NOTE: JAN 04, 2025@13:22:34 ENTRY DATE: JAN 04, 2025@13:22:34 AUTHOR: LAVERN AWAD EXP COSIGNER: URGENCY: STATUS: COMPLETED This PDMP query was submitted by Lavern Awad YARDER ENGINEER. The clinical justification for this PDMP query is to review controlled substances prescribed outside of the VA, and any additional information that may become available, as an important component of standard clinical care, and in accordance with [facility] policy. Patient information was shared with the PDMP Appriss Huson. No prescription(s) for controlled substances outside the VA were found in the last 90 days. /ervin Awad DNP, APRN, TOWN JUSTICE-C Primary Care Nurse Practitioner Signed: 01/04/2025 13:23 LAVERN AWAD [facility] Nov 26, 2024 03:27 PM ACCOUNTING OF DISC LOSURES NOTE: LOCAL TITLE: STATE PRESCRIPTION DRUG MONITORING PROGRAM STANDARD TITLE: ACCOUNTING OF DISCLOSURES NOTE DATE OF NOTE: NOV 26, 2024@15:27:42 ENTRY DATE: NOV 26, 2024@15:27:42 AUTHOR: LAVERN AWAD COSIGNER: URGENCY: STATUS: COMPLETED This PDMP query was submitted by Lavern Awad YARDER ENGINEER. The clinical justification for this PDMP query is to review controlled substances prescribed outside of the VA, and any additional information that may become available, as an important component of standard clinical care, and in accordance with [facility] policy. Patient information was shared with the PDMP Appriss Huson. Prescription(s) filled outside the VA in the last 90 days are noted. However, they do not raise significant safety concerns and do not influence the treatment plan at this time. Discussed with historically regarding obtaining Lyrica from PCP 08/20/24. /ervin Awad DNP, APRN, TOWN JUSTICE-C Primary Care Nurse Practitioner Signed: 11/26/2024 15:27 LAVERN AWADKathryn [facility] Nov 26, 2024 03:27 PM PHARMACY NOTE: LOCAL TITLE: CONTROLLED SUBSTANCES PRESCRIBING ST STANDARD TITLE: PHARMACY NOTE DATE OF NOTE: NOV 26, 2024@15:27 ENTRY DATE: NOV 26, 2024@15:28:04 AUTHOR: LAVERN AWAD COSIGNER: URGENCY: STATUS: COMPLETED Other Controlled Substances [...] standard clinical care, and in accordance with [facility] policy. *Date of Prescription Monitoring Program Query: Nov I reviewed patient's PDMP report for Schedule II, III, IV, or V medications from the following State PDMP [place] *Findings: Prescription(s) which have been filled outside the VA in the last 90 days are noted: Discussed with at last PCP appt. [END*] /es/ Lavern Awad DNP, AUTOMATIC PILOT MECHANIC, TOWN JUSTICE-C Primary Care Nurse Practitioner Signed: 11/26/2024 15:29 LAVERN AWAD [facility] Oct 18, 2024 09:00 AM PHARMACY NOTE: [...] Program Database Query current according to local [facility] policy? Yes Step 2: Opioid Risk Review [...] with continuation of long-term opioid therapy; local STL policy require UDS to be done at [...] 09:03 OPIATES Negative ng/mL 04/09/2024 08:37 OXYCODONE (NZREK-ATJ-GK) Negative ng/mL 10/16/2024 09:03 OXYCODONE (PZZVI-EHI-AE) Negative ng/mL 04/09/2024 08:37 BUPRENORPHINE (STL-PB-MA) Negative [...] appointment already scheduled. /lidia/ Lavern Awad DNP, APRN, MAHESHC Primary Care Nurse Practitioner Signed: 10/18/2024 09:00 [facility] Oct 18, 2024 08:59 AM ACCOUNTING OF [...] standard clinical care, and in accordance with [facility] policy. Patient information was shared with the PDMP Appriss Huson. Prescription(s) filled outside the VA in the last 90 days are noted. However, they do not raise significant safety concerns and do not influence the treatment plan at this time. This has been discussed with at last PCP visit. /ervin Awad DNP, APRN, CAREY-Ena Primary Care Nurse Practitioner Signed: 10/18/2024 09:00 LAVERN AWAD [facility] Oct 11, 2024 10:18 AM NURSING NOTE: [...] mental or emotional illness? No My [facility] ([facility]), please select appointment type: Face to face: Yes- Done Contact provided Primary Care phone number and encouraged to call if any questions or concerns. Review that after hours nurse line [phone] and emergency room are available 25/04 for patient use. Contact verbalized good understanding. Suicide Screen - V: C-SSRS Screening [place]-Suicide Severity Rating Scale (C-SSRS Screener) 1. Over [...] Not worried about housing near future The [facility] reports the following: Within the past 12 [...] Screen: ADL Screen - [place] in Activities of Daily Living Bathing: (3 Points) Receives no assistance (gets in and out of tub by self, if tub is usual means of bathing) Dressing: (3 Points) Gets clothes and gets completely dressed without assistance. Toileting: (3 Points) Goes to toilet room, cleans self, and arranges clothes without assistance [...] Low (patient very dependent) IADL Screen - [place] Instrumental Activities of Daily Living Scale Ability [...] PRACITCAL NURSE Signed: 10/11/2024 10:24 CHANELLE RAMOS [facility] Oct 11, 2024 09:56 AM PRIMARY CARE NOTE: LOCAL TITLE: PRIMARY CARE PROVIDER ESTABLISHED VISIT ST STANDARD TITLE: PRIMARY CARE NOTE DATE OF NOTE: OCT 11, 2024@09:56 ENTRY DATE: OCT 11, 2024@09:57:01 AUTHOR: LAVERN AWAD EXP COSIGNER: URGENCY: STATUS: COMPLETED REASON FOR VISIT/CHIEF COMPLAINT: Evaluation and management of chronic medical conditions/My scheduled visit HPI: Patient is a 74 year old WHITE MALE who presents to the clinic for evaluation and management of chronic medical conditions. Patient denies any recent ED visits or hospitalizations. Patient goes by Will. Private providers: -Patient prefers for private PCP to manage his primary care, reports obtains certain medications at the [place] due to cost. -Private PCP Dr. Cassandra Delgado. -Private neurology Dr. Juanito Galvez. #HLD: -Medication: Atorvastatin and FENOFIBRATE. -Reports compliance with medication regimen. -Denies any new onset of myalgias. #Prediabetes: -Denies concerns today. #Peripheral neuropathy: -Medication: Lyrica. -Reports medication compliance. -[facility] had a 30 day supply of Lyrica picked up at [facility] pharmacy in [place] 08/23/24 (this was ordered per private PCP Dr. Cassandra Delgado with 5 refills given). [facility] had 30 day supply of Lyrica mailed to by the [facility] 08/23/24. [facility] is not due for a dose refill [...] the private sector. Patient was evaluated by [facility]. Occurred again 09/17/24. -Medication: Clopidogrel. -Patient [...] MEDICAL HISTORY: 1) Peripheral neuropathy (SNOMED CT 485573833) 2) Decreased vitamin B12 level (SNOMED CT 488389255) 3) Vitamin D deficiency (SNOMED CT 76619775) 4) Erectile dysfunction (SNOMED CT 005275686) 5) Hyperlipidemia 6) Gout 7) Posttraumatic stress disorder 8) Tobacco use 9) Transient cerebral ischemia 10) Tinnitus 11) Skin eruption SOCIAL HISTORY: Tobacco: See above. Alcohol: 1-2 drinks daily. Illicit: Denies. -Patient lives with , reports being for >50 years. -Patient goes to [place] every July with his . ALLERGIES: SERTRALINE [...] incontinence. Musculoskeletal/Extremities : Denies edema. Denies pain. /PROMOTION PRODUCER: Denies frequency, hesitancy, urgency, or hematuria. Psychology: [...] (MODERNA), MRNA, LNP-S,* 3 02/05/2022 [facility] <C> COVID-19 (MODERNA), MRNA, LNP-S,* 1 09/30/2023 [facility]* COVID-19 (PFIZER), MRNA, LNP-S, * 3 07/17/2021 [facility]* <C> COVID-19 (PFIZER), MRNA, LNP-S, * 2 11/22/2020 [facility]* <C> COVID-19 (PFIZER), MRNA, LNP-S, * 1 11/01/2020 [facility]* <C> COVID-19 (PFIZER), MRNA, LNP-S, * 5 07/11/2024 [facility] INFLUENZA, HIGH-DOSE, TRIVALENT,* 1 07/11/2024 [facility] PNEUMOCOCCAL CONJUGATE PCV 13 08/18/2015 [facility]* PNEUMOCOCCAL POLYSACCHARIDE PPV23 2 07/12/2022 [facility] PNEUMOCOCCAL POLYSACCHARIDE PPV23 1 07/15/2021 [facility] PNEUMOCOCCAL POLYSACCHARIDE PPV23 03/03/2016 [facility]* TD (ADULT), 2 LF TETANUS TOXOID,* 1 05/04/2018 [facility] TDAP 05/04/2018 No Site <C> TDAP 07/08/2008 [place] [facility] 11/10/2011 [facility]* ZOSTER RECOMBINANT 2 11/23/2021 [facility] ZOSTER RECOMBINANT 1 07/15/2021 [facility] Shingles recombinant: Reports having two dose series at [facility] in approx. 2020. Colonoscopy: Aged out per patient. Reports last completed in approx. 2020. Patient states this was negative. PSA: Obtains labs in the private sector. LDCT: Does not qualify. AAA screening: Does not qualify. Eye exam: Evaluation and management per [facility] optometry. Labs ordered: Methadone panel (reviewed with this is required prior to next refill if would like to obtain Lyrica at the VA). Obtains labs in the private sector. ASSESSMENT/PLAN: HLD: -Continue medication regimen. -Reviewed lifestyle modifications including participating in a low fat/low cholesterol diet. -Dietitian contact information given. -Evaluation and management per private PCP. Prediabetes: -Reviewed lifestyle modifications. -Dietitian contact information given. -Evaluation and management per private PCP. Peripheral neuropathy: -Continue medication regimen. -Methadone panel ordered. - to notify clinic if would like to pursue prescription of Lyrica from the VA versus the private sector once his refill is due 10/23/24. Reviewed with that it is the VA policy to only obtain Lyrica from one source. Reviewed with if would like to obtain through the VA to request this 7 days before it is due to ensure this is mailed to the in time. verbalized understanding. -Evaluation and management per private [...] -Reviewed lifestyle modifications. - crisis line and [facility] contact information given. -Patient declines [place] psychology consult. -Evaluation and management per private [...] side effects of prescribed medication and treatments. Beeson verbalizes understanding and is in agreement with the plan of care. Patient was instructed to keep all scheduled appointments and contact utilization manager for any additional problems. Medication Reconciliation [...] 90 days.) with the patient and/or his/her care-chief credit officer. Handwritten corrections, additions and/or deletions were made [...] Screen: ADL Screen - [place] in Activities of Daily Living Bathing: (3 Points) Receives no assistance (gets in and out of tub by self, if tub is usual means of bathing) Dressing: (3 Points) Gets clothes and gets completely dressed without assistance. Toileting: (3 Points) Goes to toilet room, cleans self, and arranges clothes without assistance [...] Screen: No incontinence. /lidia/ Lavern Awad DNP, AUTOMATIC PILOT MECHANIC, [employer] Primary Care Nurse Practitioner Signed: 10/11/2024 12:14 [facility]
--- OUTSIDE RECORDS SUMMARY | 2025-04-10 10:19 | XMS_ITS | Referral Summary ---
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 Pulse 74 08/20/2021 8:35 AM BATCH MIXER OPERATOR Temperature 36.7 C (98 F) 08/20/2021 8:35 AM BATCH MIXER OPERATOR Respiratory Rate 18 08/20/2021 8:35 AM BATCH MIXER OPERATOR Oxygen Saturation 98% 08/20/2021 8:35 AM BATCH MIXER OPERATOR Inhaled Oxygen Concentration - - Weight 76.9 kg (169 lb 8 oz) 08/19/2021 5:55 AM BATCH MIXER OPERATOR Height 177.8 cm (5' 10) 08/19/2021 5:55 AM BATCH MIXER OPERATOR Body Mass Index 24.32 08/19/2021 5:55 AM BATCH MIXER OPERATOR Plan of Treatment Not on file Medical Devices Implanted Type Area Environmental Analyst Device Identifier Shelf Expiration Date Model / Serial / Lot [employer] [id number] Tornier Aequalis Perform 15mm Press Fit Long Post Shoulder - [id number] - [id number] Implanted:Qty : 1 on 08/19/2021 by Mina Washington MD at [facility] Other - see comments Right: Shoulder [email or web address] [id number] 04/22/2026 [id number] / [id number] / [employer] [id number] Tornier Aequalis Perform 25mm Lateralize Augment Reverse Shoulder - [id number] - [id number] Implanted:Qty : 1 on 08/19/2021 by Mina Washington MD at [facility] Other - see comments Right: Shoulder [employer] [id number] 06/15/2026 [id number] / [id number] / [employer] All569 Tornier Aequalis Perform 39mm Reverse Shoulder Standard Sphere - [id number] - [id number] Implanted:Qty : 1 on 08/19/2021 by Mina Washington MD at [facility] Other - see comments Right: Shoulder [employer] [id number] 06/22/2026 [id number] / [id number] / [employer] [id number] Insert Perform 10 Deg [id number] - [id number] - [id number] Implanted:Qty : 1 on 08/19/2021 by Mina Washington MD at [facility] Other - see comments Right: Shoulder [employer] [id number] 01/14/2026 [id number] / [id number] / [employer] [id number] Stem Perform Sz 3 Humeral - Sna - [id number] Implanted:Qty : 1 on 08/19/2021 by Mina Washington MD at [facility] Other - see comments Right: Shoulder [employer] [id number] / NA / [employer] [id number] Aequalis Perform Reversed 5mm 34mm Peripheral Glenoid Screw - [id number] Implanted:Qty : 2 on 08/19/2021 by Mina Washington MD at [facility] Screw Right: Shoulder [employer] [id number] / / Insurance [facility] MDCR HMO REF [facility] MEDICARE OOS [facility] [place]ARE [place] [facility] ADVANTRA Advance Directives For more information, please contact: [phone] * Full Code (Latest Code Status on File) Date Activated Date Inactivated Comments 08/19/2021 11:07 AM 08/20/2021 3:42 PM Care Teams Manager Of Business Relationship Specialty Start Date End Date Cassandra Mathis DO PCP - General Family Medicine 02/10/21
--- OUTSIDE RECORDS SUMMARY | 2025-04-10 10:19 | XMS_ITS | Clinical Summary ---
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 Gender Identity Not on file Sexual Orientation Not on file Plan of Treatment Health Maintenance Due Date Last Done Comments Hepatitis C 1968 Annual Medicare Wellness Visit 2013 RSV Immunization or 60+ Years (1 - 1-dose 75+ series) 2023 COVID-19 Vaccine ( season) 2025 07/11/2024, 09/30/2023, 02/05/2022, Additional history exists DTaP, Tdap and Td Vaccines (4 - Td or Tdap) 05/04/2028 05/04/2018, 05/04/2018, 07/08/2008 Zoster Vaccines Completed 11/23/2021, 07/03, 11/10/2011 Pneumococcal Vaccine: 50+ Years Completed 07/12/2022, 07/15/2021, 03/03/2016, Additional history exists Meningococcal B Vaccine Aged Out No l onger eligible based on patient's age to complete this topic Meningococcal Vaccine Aged Out No teofilo josh eligible based on patient's age to complete this topic RSV Immunizations Under 20 Months Aged Out No longer eligible based on patient's age to complete this topic Insurance AETNA [facility] OFFICE OF [facility] Care Teams Customer Service Associate Relationship Specialty Start Date End Date Cassandra Mathis DO [address] [place] [address] PCP - General FAMILY PRACTICE 12/09/22
--- OUTSIDE RECORDS SUMMARY | 2025-04-10 10:19 | XMS_ITS | Continuity of Care Document ---
Author Name [facility] Organization [facility] Care Team Providers Care Manager Transplant Name Role Phone [facility] Unavailable Unavailable Problems Combined list of problems from Department of Defense and [facility] Affairs facilities. It does not include entries that were removed or entered in error. Problem Status Onset Date Problem Type Date of Resolution Comments Source Transient cerebral ischemia Active 2 Condition [facility] Decreased vitamin B12 level (SNOMED CT 126344605) Active Condition [facility] Erectile dysfunction (SNOMED CT 615779451) Active Condition [facility] Gout Active Condition [facility] Hyperlipidemia Active Condition [facility] Peripheral neuropathy (SNOMED CT 330891896) Active Condition February 09, 2011 Entered By: JADE MARTINEZ A Comment: diagnosed about 3 years ago [facility] Posttraumatic stress disorder Active Condition [facility] Prediabetes Active Condition [facility] Skin eruption Active Condition [facility] Tinnitus Active Condition [facility] Tobacco use Active Condition [facility] Vitamin D deficiency (SNOMED CT 99788052) Active Condition [facility] Chronic low back pain (SNOMED CT 422966255) Inactive Condition 09/30/2023 Nov 14, 2013 Entered By: JADE MARTINEZ A Comment: on SS disability [facility] Depression Inactive Condition 09/30/2023 [facility] Neck Pain Inactive Condition 09/30/2023 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 Medications Combined list of outpatient [...] DAY ORAL ACTIVE AWAD,SHE LBY R 2024 [facility] ASPIRIN 81MG TAB,EC TAKE ONE TABLET BY MOUTH ONCE A DAY ORAL ACTIVE AWAD,SHE LBY R 2024 [facility] ATORVASTATI N CA 80MG TAB TAKE ONE-HALF TABLET BY MOUTH EVERY EVENING ORAL ACTIVE AWAD,SHE LBY R 2024 [facility] CHOLECALCIF LASHAWN 50MCG (2,000UNIT) TAB TAKE TWO TABLETS BY MOUTH ONCE A DAY ORAL ACTIVE EZEKIEL MARTINEZ 2010 [facility] CLOPIDOGREL BISULFATE 75MG TAB TAKE ONE TABLET BY MOUTH ONCE A DAY ORAL ACTIVE AWAD,SHE LBY R 2024 [facility] CYANOCOBALA MIN 1000MCG TAB TAKE ONE TABLET BY MOUTH ONCE A DAY ORAL ACTIVE AWAD,SHE LBY R 2024 [facility] DICLOFENAC NA 75MG TAB,EC TAKE ONE TABLET BY MOUTH EVERY MORNING AND EVENING ORAL ACTIVE AWAD,SHE LBY R 2024 [facility] FENOFIBRATE TAB TAKE 54 MG BY MOUTH ONCE A DAY ORAL ACTIVE AWAD,SHE LBY R 2024 [facility] GARLIC OIL TAB,EC TAKE ONE TABLET BY MOUTH ORAL ACTIVE AWAD,SHE LBY R 2022 [facility] PREGABALIN 150MG CAP,ORAL TAKE ONE CAPSULE BY MOUTH THREE TIMES A DAY FOR NEUROPAT HIC PAIN. *MAY CAUSE DROWSINE SS* ORAL ACTIVE 04/27/2025 [id number] Hayden CABRERA 2024 90 [facility] PREGABALIN 150MG CAP,ORAL TAKE ONE CAPSULE BY MOUTH THREE TIMES A DAY FOR NEUROPAT HIC PAIN. *MAY CAUSE DROWSINE SS* ORAL DISCONT INUED 03/13/2025 [id number] 5 KELY AWAD R 2024 90 [facility] PREGABALIN 150MG CAP,ORAL TAKE ONE CAPSULE BY MOUTH THREE TIMES A DAY FOR NEUROPAT HIC PAIN. *MAY CAUSE DROWSINE SS* ORAL DISCONT INUED 02/03/2025 [id number] 5 KELY AWAD R 2024 90 [facility] PREGABALIN 150MG CAP,ORAL TAKE ONE CAPSULE BY MOUTH THREE TIMES A DAY FOR NEUROPAT HIC PAIN. *MAY CAUSE DROWSINE SS* ORAL DISCONT INUED 12/26/2024 [id number] 5 KELY AWAD R 2024 90 [facility] PREGABALIN 150MG CAP,ORAL TAKE ONE CAPSULE BY MOUTH THREE TIMES A DAY FOR NEUROPAT HIC PAIN. *MAY CAUSE DROWSINE SS* ORAL DISCONT INUED 11/17/2024 [id number] 5 KELY AWAD R 2024 90 [facility] PREGABALIN 150MG CAP,ORAL TAKE ONE CAPSULE BY MOUTH THREE TIMES A DAY FOR NEUROPAT HIC PAIN. *MAY CAUSE DROWSINE SS* ORAL DISCONT INUED BY PROVIDE R 09/20/2024 [id number] 4 KELY AWAD R 2023 90 [facility] PREGABALIN 150MG CAP,ORAL TAKE ONE CAPSULE BY MOUTH THREE TIMES A DAY FOR NEUROPAT HIC PAIN. *MAY CAUSE DROWSINE SS* ORAL DISCONT INUED 07/25/2024 [id number] 4 Hayden CABRERA 2023 90 [facility] PREGABALIN 150MG CAP,ORAL TAKE ONE CAPSULE BY MOUTH THREE TIMES A DAY FOR NEUROPAT HIC PAIN. *MAY CAUSE DROWSINE SS* ORAL DISCONT INUED 06/13/2024 [id number] 4 KELY AWAD R 2023 90 [facility] PREGABALIN 150MG CAP,ORAL TAKE ONE CAPSULE BY MOUTH THREE TIMES A DAY FOR NEUROPAT HIC PAIN. *MAY CAUSE DROWSINE SS* ORAL DISCONT INUED 05/09/2024 [id number] 4 RITESH,KELY CASTANEDA R 2023 90 [facility] SILDENAFIL CITRATE 100MG TAB TAKE ONE TABLET BY MOUTH EVERY WEEK NEEDED FOR ERECTILE DYSFUNCT ION (TAKE 60 MINUTES PRIOR TO SEXUAL ACTIVITY ) - LIMIT 6 DOSES PER 30 DAYS ORAL 03/31/2025 [id number] 4 KELY AWAD R 2023 18 [facility] Allergies, Adverse Reactions, Alerts Combined list of allergies from Department of Defense and Veterans Affairs facilities. It does not include entries that were removed or entered in error. Substance Category Reaction Severity Reaction type Status Date Reported Comments Source SERTRALINE Propensity to adverse reactions to drug (finding) Diarrhea active 6 [facility] Immunizations Combined list of available immunizations from the Department of Defense and Veterans Affairs facilities. Immunization Series Date Given Administered By Site Reaction Lot Number CVX Code Drug Collect On Delivery Clerk Status Comments Source COVID-19 (PFIZER), MRNA, LNP-S, PF, ASHANTI-SUCROSE, 30 MCG/0.3 ML (AGES 12+ YEARS) 5 2023 309 complet ed HISTORICA L INFORMATI ON - FROM OTHER [facility], [facility] INFLUENZA, HIGH-DOSE, TRIVALENT, PF 1 2023 135 complet ed HISTORICA L INFORMATI ON - FROM OTHER [facility], [facility] COVID-19 (MODERNA), MRNA, LNP-S, PF, 50 MCG/0.5 ML (AGES 12+ YEARS) 1 2022 SANDRA RAMOS RIGHT DELTO ID [id number] 312 complet ed [facility] INFLUENZA, HIGH-DOSE, QUADRIVALENT, PF 1 2022 197 complet ed HISTORICA L INFORMATI ON - FROM OTHER [facility], [facility] INFLUENZA, UNSPECIFIED FORMULATION 2022 88 complet ed HISTORICA L INFORMATI ON - FROM PATIENT'S RECALL, [facility] INFLUENZA, HIGH-DOSE, QUADRIVALENT, PF 1 2021 197 complet ed HISTORICA L INFORMATI ON - FROM OTHER REGISTRY, [facility] PNEUMOCOCCAL POLYSACCHARID E PPV23 2 2021 33 complet ed HISTORICA L INFORMATI ON - FROM OTHER REGISTRY, [facility] (MODERNA), MRNA, LNP-S, PF, 100 MCG/0.5ML DOSE OR 50 MCG/0.25ML DOSE 3 2021 207 complet ed MOD; [id number]; 2 [facility] ZOSTER RECOMBINANT 2 2021 187 complet ed HISTORICA L INFORMATI ON - FROM OTHER REGISTRY, [facility] COVID-19 (PFIZER), MRNA, LNP-S, PF, 30 MCG/0.3 ML DOSE 3 2020 208 complet ed PFR; [id number]; 1 [facility] PNEUMOCOCCAL POLYSACCHARID E PPV23 1 2020 33 complet ed HISTORICA L INFORMATI ON - FROM OTHER REGISTRY, [facility] ZOSTER RECOMBINANT 1 2020 187 complet ed HISTORICA L INFORMATI ON - FROM OTHER REGISTRY, [facility] INFLUENZA, HIGH-DOSE, QUADRIVALENT, PF 1 2020 197 complet ed HISTORICA L INFORMATI ON - FROM OTHER REGISTRY, [facility] COVID-19 (PFIZER), MRNA, LNP-S, PF, 30 MCG/0.3 ML DOSE 2 2020 208 complet ed PFR; [id number]; 1 [facility] COVID-19 (PFIZER), MRNA, LNP-S, PF, 30 MCG/0.3 ML DOSE 1 2020 208 complet ed PFR; [id number]; 1 [facility] INFLUENZA, HIGH-DOSE, QUADRIVALENT 2019 197 complet ed HISTORICA L INFORMATI ON - FROM OTHER PROVIDER, [facility] Administe red by: [facility] Clinician (NPI=Not Provided) . Partner 7 Lot#: [id number] Mfr: sanofi pasteur; Dosage: [id number] ml [facility] INFLUENZA, UNSPECIFIED FORMULATION [address] [facility] INFLUENZA, UNSPECIFIED FORMULATION [address] [facility] INFLUENZA, TRIVALENT, ADJUVANTED 2018 168 complet ed HISTORICA L INFORMATI ON - FROM OTHER PROVIDER, Partner: [facility]. Administe red by: [facility] Clinician (NPI=Not Provided) . Partner 7 Lot#: [id number] Mfr: GroundCntrlIRUS [facility] INFLUENZA, INJECTABLE, QUADRIVALENT, PRESERVATIVE FREE 2017 150 complet ed 02, [facility]. Administe red by: [facility] Clinician (NPI=Not Provided) . Partner 7 Lot#: [id number] Mfr: EXPO [facility] INFLUENZA, SPLIT VIRUS, QUADRIVALENT, PF 2 2017 150 complet ed HISTORICA L INFORMATI ON - FROM OTHER REGISTRY, [facility] INFLUENZA, HIGH-DOSE, TRIVALENT, PF 1 2017 135 complet ed HISTORICA L INFORMATI ON - FROM OTHER [facility], [facility] TDAP 2017 115 complet ed Right Deltoid [facility] ([facility]ULT), 2 LF TETANUS TOXOID, PRESERVATIVE FREE, ADSORBED 1 2017 09 complet ed HISTORICA L INFORMATI ON - FROM OTHER REGISTRY, [facility] INFLUENZA, HIGH-DOSE, TRIVALENT, PF 1 2016 135 complet ed HISTORICA L INFORMATI ON - FROM OTHER REGISTRY, [facility] INFLUENZA, UNSPECIFIED FORMULATION [address] [facility] INFLUENZA, UNSPECIFIED FORMULATION 2015 88 complet ed [facility] NOVEL INFLUENZA-H1N 1-09, ALL FORMULATIONS 1 2015 128 complet ed HISTORICA L INFORMATI ON - [facility] OTHER [facility], [facility] PNEUMOCOCCAL POLYSACCHARID E PPV23 2015 33 complet ed [facility] PNEUMOCOCCAL CONJUGATE PCV 13 2014 133 complet ed [facility] INFLUENZA, UNSPECIFIED FORMULATION 2014 88 complet ed [facility] INFLUENZA, HIGH-DOSE, TRIVALENT, PF 1 2014 135 complet ed HISTORICA L INFORMATI ON - FROM OTHER REGISTRY, [facility] INFLUENZA, UNSPECIFIED FORMULATION 2013 88 complet ed [facility] INFLUENZA, UNSPECIFIED FORMULATION 2013 88 complet ed [facility] INFLUENZA, UNSPECIFIED FORMULATION 2012 88 complet ed [place] INFLUENZA, UNSPECIFIED FORMULATION 2012 88 complet ed [facility] INFLUENZA, UNSPECIFIED FORMULATION 2012 88 complet ed [facility] INFLUENZA, UNSPECIFIED FORMULATION 2011 88 complet ed [facility] ZOSTER LIVE 2011 121 complet ed [facility] INFLUENZA, UNSPECIFIED FORMULATION 2010 88 complet ed [facility] INFLUENZA, UNSPECIFIED FORMULATION 2010 88 complet ed [facility] INFLUENZA, UNSPECIFIED FORMULATION 2009 88 [...] Comments Source URINE DRUG SCREEN (STL) ETHANOL [MASS/VOLUM E] IN URINE 63 mg/dL 0 - 9 10/16 H Specimen Type: URINE Comment: The cut-off value for Fentanyl was laboratory developed and its performance characteris tics confirmed by the [facility] laboratory thru method comparison with reference laboratory and medication chart review. The laboratory is regulated under CLIA as qualified to perform high-comple xity testing. Fentanyl is used for clinical purposes in conjunction with other laboratory tests. Ordering Provider: JAIME AWAD Report Released Date/Time: Oct 11, 2024 10:37 AM Reporting Lab: [facility] [address] [facility] [address] Performing Lab: [address] [address] [facility] URINE DRUG SCREEN (STL) AMPHETAMINE [PRESENCE] IN URINE BY SCREEN METHOD Negative ng/mL 10/16 Specimen Type: URINE Comment: The cut-off value for Fentanyl was laboratory developed and its performance characteris tics confirmed by the [facility] laboratory thru method comparison with reference laboratory and medication chart review. The laboratory is regulated under CLIA as qualified to perform high-comple xity testing. Fentanyl is used for clinical purposes in conjunction with other laboratory tests. Ordering Provider: JAIME AWAD Report Released Date/Time: Oct 11, 2024 10:37 AM Reporting Lab: [facility] [address] [facility] [address] Performing Lab: [address] [address] [facility] URINE DRUG SCREEN (STL) BENZOYLECGO NINE [PRESENCE] IN URINE Negative ng/mL 10/16 Specimen Type: URINE Comment: The cut-off value for Fentanyl was laboratory developed and its performance characteris tics confirmed by the [facility] laboratory thru method comparison with reference laboratory and medication chart review. The laboratory is regulated under CLIA as qualified to perform high-comple xity testing. Fentanyl is used for clinical purposes in conjunction with other laboratory tests. Ordering Provider: JAIME AWAD Report Released Date/Time: Oct 11, 2024 10:37 AM Reporting Lab: [facility] [address] [facility] [address] Performing Lab: [facility] [address] [facility] [address] [facility] URINE DRUG SCREEN (STL) BENZODIAZEP SHAHAB [PRESENCE] IN URINE BY SCREEN METHOD Negative ng/mL 10/16 Specimen Type: URINE Comment: The cut-off value for Fentanyl was laboratory developed and its performance characteris tics confirmed by the [facility] laboratory thru method comparison with reference laboratory and medication chart review. The laboratory is regulated under CLIA as qualified to perform high-comple xity testing. Fentanyl is used for clinical purposes in conjunction with other laboratory tests. Ordering Provider: JAIME AWAD Report Released Date/Time: Oct 11, 2024 10:37 AM Reporting Lab: [facility] [address] [facility] [address] Performing Lab: [place] [address] [facility] [address] [facility] URINE DRUG SCREEN (STL) CANNABINOID S [PRESENCE] IN URINE BY SCREEN METHOD Negative ng/mL 10/16 Specimen Type: URINE Comment: The cut-off value for Fentanyl was laboratory developed and its performance characteris tics confirmed by the [facility] laboratory thru method comparison with reference laboratory and medication chart review. The laboratory is regulated under CLIA as qualified to perform high-comple xity testing. Fentanyl is used for clinical purposes in conjunction with other laboratory tests. Ordering Provider: JAIME AWAD Report Released Date/Time: Oct 11, 2024 10:37 AM Reporting Lab: [facility] [address] [facility] [address] Performing Lab: [facility] [address] [facility] [address] [facility] URINE DRUG SCREEN (STL) METHADONE [PRESENCE] IN URINE Negative ng/mL 10/16 Specimen Type: URINE Comment: The cut-off value for Fentanyl was laboratory developed and its performance characteris tics confirmed by the [facility] laboratory thru method comparison with reference laboratory and medication chart review. The laboratory is regulated under CLIA as qualified to perform high-comple xity testing. Fentanyl is used for clinical purposes in conjunction with other laboratory tests. Ordering Provider: JAIME AWAD Report Released Date/Time: Oct 11, 2024 10:37 AM Reporting Lab: [facility] [address] [facility] [address] Performing Lab: [facility] [address] [facility] [address] [facility] URINE DRUG SCREEN (STL) OPIATES [PRESENCE] IN URINE BY SCREEN METHOD Negative ng/mL 10/16 Specimen Type: URINE Comment: The cut-off value for Fentanyl was laboratory developed and its performance characteris tics confirmed by the [facility] laboratory thru method comparison with reference laboratory and medication chart review. The laboratory is regulated under CLIA as qualified to perform high-comple xity testing. Fentanyl is used for clinical purposes in conjunction with other laboratory tests. Ordering Provider: JAIME AWAD Report Released Date/Time: Oct 11, 2024 10:37 AM Reporting Lab: [facility] [address] [facility] [address] Performing Lab: [place] [address] [facility] [address] [facility] URINE DRUG SCREEN (STL) CREATININE [MASS/VOLUM E] IN URINE 71.9 mg/dL 63 - 166 10/16 Specimen Type: URINE Comment: The cut-off value for Fentanyl was laboratory developed and its performance characteris tics confirmed by the [facility] laboratory thru method comparison with reference laboratory and medication chart review. The laboratory is regulated under CLIA as qualified to perform high-comple xity testing. Fentanyl is used for clinical purposes in conjunction with other laboratory tests. Ordering Provider: JAIME AWAD Report Released Date/Time: Oct 11, 2024 10:37 AM Reporting Lab: [facility] [address] [facility] [address] Performing Lab: [facility] [address] [facility] [address] [facility] URINE DRUG SCREEN (STL) OXYCODONE CUTOFF [MASS/VOLUM E] IN URINE FOR SCREEN METHOD Negative ng/mL 10/16 Specimen Type: URINE Comment: The cut-off value for Fentanyl was laboratory developed and its performance characteris tics confirmed by the [facility] laboratory thru method comparison with reference laboratory and medication chart review. The laboratory is regulated under CLIA as qualified to perform high-comple xity testing. Fentanyl is used for clinical purposes in conjunction with other laboratory tests. Ordering Provider: JAIME AWAD Report Released Date/Time: Oct 11, 2024 10:37 AM Reporting Lab: [place] [address] [facility] [address] Performing Lab: [address] [address] [facility] URINE DRUG SCREEN (L) BUPRENORPHI NE [PRESENCE] IN URINE Negative ng/mL 10/16 Specimen Type: URINE Comment: The cut-off value for Fentanyl was laboratory developed and its performance characteris tics confirmed by the [facility] laboratory thru method comparison with reference laboratory and medication chart review. The laboratory is regulated under CLIA as qualified to perform high-comple xity testing. Fentanyl is used for clinical purposes in conjunction with other laboratory tests. Ordering Provider: JAIME AWAD Report Released Date/Time: Oct 11, 2024 10:37 AM Reporting Lab: [place] [address] [facility] [address] Performing Lab: [place] [address] [facility] [address] [facility] URINE DRUG SCREEN (STL) FENTANYL [PRESENCE] IN URINE Negative ng/mL 10/16 Specimen Type: URINE Comment: The cut-off value for Fentanyl was laboratory developed and its performance characteris tics confirmed by the [facility] laboratory thru method comparison with reference laboratory and medication chart review. The laboratory is regulated under CLIA as qualified to perform high-comple xity testing. Fentanyl is used for clinical purposes in conjunction with other laboratory tests. Ordering Provider: JAIME AWAD Report Released Date/Time: Oct 11, 2024 10:37 AM Reporting Lab: [facility] [address] [facility] [address] Performing Lab: [facility] [address] [facility] [address] [facility] METHADONE PANEL (STL) ETHANOL [MASS/VOLUM E] IN URINE 55-POSmg /dL 0 - 20 04/09 H Specimen Type: URINE Comment: The cut-off value for this test was laboratory developed and its performance characteris tics confirmed by the [facility] laboratory thru method comparison with reference laboratory and medication chart review. The laboratory is regulated under CLIA as qualified to perform high-comple xity testing. This test is used for clinical purposes in conjunction with other laboratory tests. Ordering Provider: JAIME AWAD Report Released Date/Time: Mar 30, 2024 09:55 AM Reporting Lab: [facility] [address] [facility] [address] Performing Lab: [address] [address] [facility] METHADONE PANEL (STL) AMPHETAMINE [PRESENCE] IN URINE BY SCREEN METHOD Negative ng/mL 04/09 Specimen Type: URINE Comment: The cut-off value for this test was laboratory developed and its performance characteris tics confirmed by the [facility] laboratory thru method comparison with reference laboratory and medication chart review. The laboratory is regulated under CLIA as qualified to perform high-comple xity testing. This test is used for clinical purposes in conjunction with other laboratory tests. Ordering Provider: JAIME AWAD Report Released Date/Time: Mar 30, 2024 09:55 AM Reporting Lab: [address] [address] Performing Lab: [address] [address] [facility] METHADONE PANEL (STL) BENZOYLECGO NINE [PRESENCE] IN URINE Negative ng/mL 04/09 Specimen Type: URINE Comment: The cut-off value for this test was laboratory developed and its performance characteris tics confirmed by the [facility] laboratory thru method comparison with reference laboratory and medication chart review. The laboratory is regulated under CLIA as qualified to perform high-comple xity testing. This test is used for clinical purposes in conjunction with other laboratory tests. Ordering Provider: JAIME AWAD Report Released Date/Time: Mar 30, 2024 09:55 AM Reporting Lab: [facility] [address] [facility] [address] Performing Lab: [facility] [address] [facility] [address] [facility] METHADONE PANEL (STL) BENZODIAZEP SHAHAB [PRESENCE] IN URINE BY SCREEN METHOD Negative ng/mL 04/09 Specimen Type: URINE Comment: The cut-off value for this test was laboratory developed and its performance characteris tics confirmed by the [facility] laboratory thru method comparison with reference laboratory and medication chart review. The laboratory is regulated under CLIA as qualified to perform high-comple xity testing. This test is used for clinical purposes in conjunction with other laboratory tests. Ordering Provider: JAIME AWAD Report Released Date/Time: Mar 30, 2024 09:55 AM Reporting Lab: [facility] [address] [facility] [address] Performing Lab: [place] [address] [facility] [address] [facility] METHADONE PANEL (STL) CANNABINOID S [PRESENCE] IN URINE BY SCREEN METHOD Negative ng/mL 04/09 Specimen Type: URINE Comment: The cut-off value for this test was laboratory developed and its performance characteris tics confirmed by the [facility] laboratory thru method comparison with reference laboratory and medication chart review. The laboratory is regulated under CLIA as qualified to perform high-comple xity testing. This test is used for clinical purposes in conjunction with other laboratory tests. Ordering Provider: JAIME AWAD Report Released Date/Time: Mar 30, 2024 09:55 AM Reporting Lab: [facility] [address] [facility] [address] Performing Lab: [facility] [address] [facility] [address] [facility] METHADONE PANEL (STL) METHADONE [PRESENCE] IN URINE Negative ng/mL 04/09 Specimen Type: URINE Comment: The cut-off value for this test was laboratory developed and its performance characteris tics confirmed by the [facility] laboratory thru method comparison with reference laboratory and medication chart review. The laboratory is regulated under CLIA as qualified to perform high-comple xity testing. This test is used for clinical purposes in conjunction with other laboratory tests. Ordering Provider: JAIME AWAD Report Released Date/Time: Mar 30, 2024 09:55 AM Reporting Lab: [facility] [address] [facility] [address] Performing Lab: [address] [address] [facility] METHADONE PANEL (STL) OPIATES [PRESENCE] IN URINE BY SCREEN METHOD Negative ng/mL 04/09 Specimen Type: URINE Comment: The cut-off value for this test was laboratory developed and its performance characteris tics confirmed by the [facility] laboratory thru method comparison with reference laboratory and medication chart review. The laboratory is regulated under CLIA as qualified to perform high-comple xity testing. This test is used for clinical purposes in conjunction with other laboratory tests. Ordering Provider: JAIME AWAD Report Released Date/Time: Mar 30, 2024 09:55 AM Reporting Lab: [facility] [address] [facility] [address] Performing Lab: [facility] [address] [facility] [address] [facility] METHADONE PANEL (STL) CREATININE [MASS/VOLUM E] IN URINE 98.8 mg/dL 63 - 166 04/09 Specimen Type: URINE Comment: The cut-off value for this test was laboratory developed and its performance characteris tics confirmed by the [facility] laboratory thru method comparison with reference laboratory and medication chart review. The laboratory is regulated under CLIA as qualified to perform high-comple xity testing. This test is used for clinical purposes in conjunction with other laboratory tests. Ordering Provider: JAIME AWAD Report Released Date/Time: Mar 30, 2024 09:55 AM Reporting Lab: [facility] [address] [facility] [address] Performing Lab: [facility] [address] [facility] [address] [facility] METHADONE PANEL (STL) OXYCODONE CUTOFF [MASS/VOLUM E] IN URINE FOR SCREEN METHOD Negative ng/mL 04/09 Specimen Type: URINE Comment: The cut-off value for this test was laboratory developed and its performance characteris tics confirmed by the [facility] laboratory thru method comparison with reference laboratory and medication chart review. The laboratory is regulated under CLIA as qualified to perform high-comple xity testing. This test is used for clinical purposes in conjunction with other laboratory tests. Ordering Provider: JAIME AWAD Report Released Date/Time: Mar 30, 2024 09:55 AM Reporting Lab: [facility] [address] [facility] [address] Performing Lab: [address] [address] [facility] METHADONE PANEL (STL) BUPRENORPHI NE [PRESENCE] IN URINE Negative 04/09 Specimen Type: URINE Comment: The cut-off value for this test was laboratory developed and its performance characteris tics confirmed by the [facility] laboratory thru method comparison with reference laboratory and medication chart review. The laboratory is regulated under CLIA as qualified to perform high-comple xity testing. This test is used for clinical purposes in conjunction with other laboratory tests. Ordering Provider: JAIME AWAD Report Released Date/Time: Mar 30, 2024 09:55 AM Reporting Lab: [place] [id number] [facility] [address] Performing Lab: [place] [address] [facility] [address] [facility] METHADONE PANEL (STL) FENTANYL [PRESENCE] IN URINE Negative ng/mL 04/09 Specimen Type: URINE Comment: The cut-off value for this test was laboratory developed and its performance characteris tics confirmed by the [facility] laboratory thru method comparison with reference laboratory and medication chart review. The laboratory is regulated under CLIA as qualified to perform high-comple xity testing. This test is used for clinical purposes in conjunction with other laboratory tests. Ordering Provider: JAIME AWAD Report Released Date/Time: Mar 30, 2024 09:55 AM Reporting Lab: [place] [address] [facility] [address] Performing Lab: [place] [address] [facility] [address] [facility] METHADONE PANEL (STL) ETHANOL [MASS/VOLUM E] IN URINE 28-POSmg /dL 0 - 20 09/30 H Specimen Type: URINE Comment: The cut-off value for this test was laboratory developed and its performance characteris tics confirmed by the [facility] laboratory thru method comparison with reference laboratory and medication chart review. The laboratory is regulated under CLIA as qualified to perform high-comple xity testing. This test is used for clinical purposes in conjunction with other laboratory tests. Ordering Provider: JAIME AWAD Report Released Date/Time: Aug 26, 2023 09:14 AM Reporting Lab: [facility] [address] [facility] [address] Performing Lab: [address] [address] [facility] METHADONE PANEL (STL) AMPHETAMINE [PRESENCE] IN URINE BY SCREEN METHOD Negative ng/mL 09/30 Specimen Type: URINE Comment: The cut-off value for this test was laboratory developed and its performance characteris tics confirmed by the [facility] laboratory thru method comparison with reference laboratory and medication chart review. The laboratory is regulated under CLIA as qualified to perform high-comple xity testing. This test is used for clinical purposes in conjunction with other laboratory tests. Ordering Provider: JAIME AWAD Report Released Date/Time: Aug 26, 2023 09:14 AM Reporting Lab: [facility] [address] [facility] [address] Performing Lab: [facility] [address] [facility] [address] [facility] METHADONE PANEL (STL) BENZOYLECGO NINE [PRESENCE] IN URINE Negative ng/mL 09/30 Specimen Type: URINE Comment: The cut-off value for this test was laboratory developed and its performance characteris tics confirmed by the [facility] laboratory thru method comparison with reference laboratory and medication chart review. The laboratory is regulated under CLIA as qualified to perform high-comple xity testing. This test is used for clinical purposes in conjunction with other laboratory tests. Ordering Provider: JAIME AWAD Report Released Date/Time: Aug 26, 2023 09:14 AM Reporting Lab: [address] [address] Performing Lab: [place] [address] [facility] [address] [facility] METHADONE PANEL (STL) BENZODIAZEP SHAHAB [PRESENCE] IN URINE BY SCREEN METHOD Negative ng/mL 09/30 Specimen Type: URINE Comment: The cut-off value for this test was laboratory developed and its performance characteris tics confirmed by the [facility] laboratory thru method comparison with reference laboratory and medication chart review. The laboratory is regulated under CLIA as qualified to perform high-comple xity testing. This test is used for clinical purposes in conjunction with other laboratory tests. Ordering Provider: JAIME AWAD Report Released Date/Time: Aug 26, 2023 09:14 AM Reporting Lab: [place] [address] [facility] [address] Performing Lab: [place] [address] [facility] [address] [facility] METHADONE PANEL (STL) CANNABINOID S [PRESENCE] IN URINE BY SCREEN METHOD Negative ng/mL 09/30 Specimen Type: URINE Comment: The cut-off value for this test was laboratory developed and its performance characteris tics confirmed by the [facility] laboratory thru method comparison with reference laboratory and medication chart review. The laboratory is regulated under CLIA as qualified to perform high-comple xity testing. This test is used for clinical purposes in conjunction with other laboratory tests. Ordering Provider: JAIME AWAD Report Released Date/Time: Aug 26, 2023 09:14 AM Reporting Lab: [facility] [address] [facility] [address] Performing Lab: [facility] [address] [facility] [address] [facility] METHADONE PANEL (STL) METHADONE [PRESENCE] IN URINE Negative ng/mL 09/30 Specimen Type: URINE Comment: The cut-off value for this test was laboratory developed and its performance characteris tics confirmed by the [facility] laboratory thru method comparison with reference laboratory and medication chart review. The laboratory is regulated under CLIA as qualified to perform high-comple xity testing. This test is used for clinical purposes in conjunction with other laboratory tests. Ordering Provider: JAIME AWAD Report Released Date/Time: Aug 26, 2023 09:14 AM Reporting Lab: [facility] [address] [facility] [address] Performing Lab: [place] [address] [facility] [address] [facility] METHADONE PANEL (STL) OPIATES [PRESENCE] IN URINE BY SCREEN METHOD Negative ng/mL 09/30 Specimen Type: URINE Comment: The cut-off value for this test was laboratory developed and its performance characteris tics confirmed by the [facility] laboratory thru method comparison with reference laboratory and medication chart review. The laboratory is regulated under CLIA as qualified to perform high-comple xity testing. This test is used for clinical purposes in conjunction with other laboratory tests. Ordering Provider: JAIME AWAD Report Released Date/Time: Aug 26, 2023 09:14 AM Reporting Lab: [facility] [address] [facility] [address] Performing Lab: [address] [address] [facility] METHADONE PANEL (STL) CREATININE [MASS/VOLUM E] IN URINE 127.2 mg/dL 63 - 166 09/30 Specimen Type: URINE Comment: The cut-off value for this test was laboratory developed and its performance characteris tics confirmed by the [facility] laboratory thru method comparison with reference laboratory and medication chart review. The laboratory is regulated under CLIA as qualified to perform high-comple xity testing. This test is used for clinical purposes in conjunction with other laboratory tests. Ordering Provider: JAIME AWAD Report Released Date/Time: Aug 26, 2023 09:14 AM Reporting Lab: [facility] [address] [facility] [address] Performing Lab: [facility] [address] [facility] [address] [facility] METHADONE PANEL (STL) OXYCODONE CUTOFF [MASS/VOLUM E] IN URINE FOR SCREEN METHOD Negative ng/mL 09/30 Specimen Type: URINE Comment: The cut-off value for this test was laboratory developed and its performance characteris tics confirmed by the [facility] laboratory thru method comparison with reference laboratory and medication chart review. The laboratory is regulated under CLIA as qualified to perform high-comple xity testing. This test is used for clinical purposes in conjunction with other laboratory tests. Ordering Provider: JAIME AWAD Report Released Date/Time: Aug 26, 2023 09:14 AM Reporting Lab: [facility] [address] [facility] [address] Performing Lab: [facility] [address] [facility] [address] [facility] METHADONE PANEL (STL) BUPRENORPHI NE [PRESENCE] IN URINE Negative 09/30 Specimen Type: URINE Comment: The cut-off value for this test was laboratory developed and its performance characteris tics confirmed by the [facility] laboratory thru method comparison with reference laboratory and medication chart review. The laboratory is regulated under CLIA as qualified to perform high-comple xity testing. This test is used for clinical purposes in conjunction with other laboratory tests. Ordering Provider: JAIME AWAD Report Released Date/Time: Aug 26, 2023 09:14 AM Reporting Lab: [facility] [address] [facility] [address] Performing Lab: [facility] [address] [facility] [address] [facility] METHADONE PANEL (STL) FENTANYL [PRESENCE] IN URINE Negative ng/mL 09/30 Specimen Type: URINE Comment: The cut-off value for this test was laboratory developed and its performance characteris tics confirmed by the [facility] laboratory thru method comparison with reference laboratory and medication chart review. The laboratory is regulated under CLIA as qualified to perform high-comple xity testing. This test is used for clinical purposes in conjunction with other laboratory tests. Ordering Provider: JAIME AWAD Report Released Date/Time: Aug 26, 2023 09:14 AM Reporting Lab: [address] [address] Performing Lab: [address] [address] [facility] Vital Signs Combined list of inpatient and outpatient Vital Signs from Department of Defense and Veterans Affairs, ranging from 12 months to all on record, depending upon the facility. Vital Sign Value Date Comments Source SYSTOLIC BLOOD PRESSURE 122 10/11/2024 10:15:54 [facility] DIASTOLIC BLOOD PRESSURE 74 10/11/2024 10:15:54 [facility] PULSE OXIMETRY 100 10/11/2024 10:15:54 [facility] WEIGHT 161.2 10/11/2024 10:15:54 [facility] BMI 23 kg/m2 10/11/2024 10:15:54 [facility] PAIN 0 10/11/2024 10:15:54 [facility] TEMPERATURE 97.5 10/11/2024 10:15:54 [facility] PULSE 57 10/11/2024 10:15:54 [facility] RESPIRATION 18 10/11/2024 10:15:54 [facility] Encounters Combined list of: 1) Encounters from Department of Veterans Affairs facilities going backup to the last 18 months, not all VA inpatient encounters are included; 2) Encounters from the Department of Defense facilities going backup to 280 months. Location Location Details Encounter Type Encounter Number Reason For Visit Attending Provider ADM Date DC Date Status Disposition Source [facility] Outpatient Encounter [id number] 01/10 [facility] Outpatient Encounter [id number] ZACK HERNANDEZ 02/06 [facility] OFFICE O/P EST MOD 30 MIN [id number] Diagnos is: ICD-10- CM E78.5 Hyperli pidemia , unspeci JOSEPH Fan BY R 03/30 [facility] Outpatient Encounter [id number] 07/11 [facility] Outpatient Encounter [id number] 08/20 [facility] COMPRE OPH EXAM EST PT 1/> [id number] Diagnos is: ICD-10- CM H25.11 Age-rel ated nuclear catarac t, right eye АЛЕКСАНДР MILLIGAN R 09/[address] [facility] OFFICE O/P EST MOD 30 MIN [id number] Diagnos is: ICD-10- CM E78.5 Hyperli pidemia , unspeci JOSEPH Fan BY R 10/11 [facility] Outpatient Encounter [id number] 10/18 [facility] Outpatient Encounter [id number] 11/13 [facility] Outpatient Encounter [id number] 11/14 [facility] Outpatient Encounter [id number] ZACK HERNANDEZ EVARISTO Powell 11/15 [facility] Outpatient Encounter [id number] 11/26 [facility] Outpatient Encounter [id number] 11/26 [facility] Outpatient Encounter [id number] 01/04 [facility] Outpatient Encounter [id number] ZACK HERNANDEZ EVARISTO Powell 01/04 [facility] Outpatient Encounter [id number] 02/11 [facility] Outpatient Encounter [id number] 03/07 [facility] Outpatient Encounter [id number] 03/28 [facility] Social History Combined list of available smoking, tobacco, and other social history from Department of Defense and Veterans Affairs facilities. Social History Type Response Date Comment [facility] e Tobacco smoking status NHIS VA-TOBACCO NEVER USED CIGARETTES 10/11/2024 [facility] History of tobacco use VA-TOBACCO USE SOME DAYS OTHER TYPE 10/11/2024 [facility] History of tobacco use [place]-TOBACCO DOESNT USE WI 30 MIN WAKEUP 09/27/2023 [facility] History of tobacco use VA-TOBACCO USER EVERY DAY 02/05/2022 [facility] History of tobacco use VA-TOBACCO USER EVERY DAY 03/04/2021 [facility] History of tobacco use VA-TOBACCO USE MED NO 01/23/2020 [facility] History of tobacco use VA-TOBACCO USE WI 30 MIN OF WAKEUP 04/20/2018 [facility] History of tobacco use TOBACCO USER OFFERED MEDS 03/13/2018 [facility] History of tobacco use TOBACCO USER OFFERED MEDS 10/10/2017 [facility] History of tobacco use CURRENT TOBACCO USER 03/28/2017 [facility] History of tobacco use CURRENT TOBACCO USER 03/14/2017 [facility] History of tobacco use CURRENT TOBACCO USER 05/31/2016 [facility] History of tobacco use CURRENT TOBACCO USER 06/18/2015 [facility] History of tobacco use CURRENT TOBACCO USER 06/17/2014 [facility] History of tobacco use CURRENT TOBACCO USER 05/02/2013 [facility] History of tobacco use CURRENT TOBACCO USER 04/19/2012 [facility] History of tobacco use CURRENT TOBACCO USER 02/09/2011 [facility] Plan of Care List of future care activities from Department [employer] facilities. Additional future care activities may be listed in the Assessment and Plan section. Date/Time Care Activity Care Activity Detail Facili ty 04/19/2025 AMBULATORY - MEDICINE AMBULATORY - MEDICI NE [facility] Advance Directives List of completed, amended, or rescinded Advance Directives on record at [facility] facilities. An actual copy of the Directive is not included. Date Advance Directive Provider Source 03/17/2011 ADVANCE DIRECTIVE DISCUSSION JADE MARTINEZ [facility]
--- OUTSIDE RECORDS SUMMARY | 2025-04-10 10:19 | XMS_ITS | Clinical Summary ---
Author Organization 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 Gender Identity Not on file Sexual Orientation Not on file Last Filed Vital Signs Vital Sign Reading Time Taken Comments Blood Pressure 109/70 09/06/2024 9:25 AM INTERIOR HORTICULTURIST Pulse 60 09/06/2024 9:25 AM INTERIOR HORTICULTURIST Temperature 36.7 C (98 F) 09/06/2024 9:25 AM INTERIOR HORTICULTURIST Respiratory Rate 16 09/06/2024 9:25 AM INTERIOR HORTICULTURIST Oxygen Saturation 99% 09/06/2024 9:25 AM INTERIOR HORTICULTURIST Inhaled Oxygen Concentration - - Weight 74.4 kg (164 lb) 09/06/2024 9:25 AM INTERIOR HORTICULTURIST Height 177.8 cm (5' 10) 09/06/2024 9:25 AM INTERIOR HORTICULTURIST Body Mass Index 23.53 09/06/2024 9:25 AM INTERIOR HORTICULTURIST Plan of Treatment Health Maintenance Due Date Last Done Comments ZOSTER VACCINE (2 of 3) 01/05/2012 11/10/2011 RSV VACCINE (60+ or ) (1 - 1-dose 75+ series) 2023 COVID-19 Vaccine (6 - 2023-2 5 season) 2024 09/30/2023, 02/05/2022, 07/17/2021, Additional history exists INFLUENZA VACCINE (#1) 2025 , 07/02/2019, 06/23/2018 DTAP/TDAP/TD VACCINES (3 - T d or Tdap) 05/04/2028 05/04/2018, 07/08/2008 PNEUMOCOCCAL VACCINE 50+ YEARS Completed 03/03/2016 , 08/18/2015 Insurance [employer] PPO [facility]
--- OUTSIDE RECORDS SUMMARY | 2025-04-10 10:19 | XMS_ITS | Clinical Summary ---
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 Name Role Phone Cassandra Mathis DO Primary Care Provider +1- [phone] Allergies No known active allergies Medications allopurinoL [...] (07/21/2021): Added automatically from request for surgery [id number] Immunizations Immunization Administration Dates Next Due GranData SARS-CoV-2 Monovalent Vaccination (12+ Yrs) PURPLE 07/17/2021,11/22/2020,11/01/2020 [...] Comments Blood Pressure 108/58 08/20/2021 8:35 AM YOUTUBER Pulse 74 08/20/2021 8:35 AM YOUTUBER Temperature 36.7 C (98 F) 08/20/2021 8:35 AM YOUTUBER Respiratory Rate 18 08/20/2021 8:35 AM YOUTUBER Oxygen Saturation 98% 08/20/2021 8:35 AM YOUTUBER Inhaled Oxygen Concentration - - Weight 76.9 kg (169 lb 8 oz) 08/19/2021 5:55 AM YOUTUBER Height 177.8 cm (5' 10) 08/19/2021 5:55 AM YOUTUBER Body Mass Index 24.32 08/19/2021 5:55 AM YOUTUBER Plan of Treatment Health Maintenance Due Date [...] 03/03/2016, 08/03 Medical Devices Implanted Type Area Wire Spring Relay Adjuster Device Identifier Shelf Expiration Date Model / Serial / Lot Air Ion Devices[employer]t [employer] [id number] Tornier Aequalis Perform 15mm Press Fit Long Post Shoulder - [id number] - [id number] Implanted:Qty : 1 on 08/19/2021 by Mina Washington MD at [facility] Other - see comments Right: Shoulder [employer] [id number] 04/22/2026 [id number] / [id number] / Tornier Inc [id number] Tornier Aequalis Perform 25mm Lateralize Augment Reverse Shoulder - [id number] - [id number] Implanted:Qty : 1 on 08/19/2021 by Mina Washington MD at [facility] Other - see comments Right: Shoulder [employer] [id number] 06/15/2026 [id number] / [id number] / Tornier Inc [id number] Tornier Aequalis Perform 39mm Reverse Shoulder Standard Sphere - [id number] - [id number] Implanted:Qty : 1 on 08/19/2021 by Mina Washington MD at [facility] Other - see comments Right: Shoulder [employer] [id number] 06/22/2026 [id number] / [id number] / [employer] [id number] Insert Perform 10 Deg [id number] - [id number] - [id number] Implanted:Qty : 1 on 08/19/2021 by Mina Washington MD at [facility] Other - see comments Right: Shoulder [employer] [id number] 01/14/2026 [id number] / [id number] / [employer] Dwx3ss Stem Perform Sz 3 Humeral - Sna - [id number] Implanted:Qty : 1 on 08/19/2021 by Mina Washington MD at [facility] Other - see comments Right: Shoulder [employer] [id number] / NA / Tornier Inc [id number] Aequalis Perform Reversed 5mm 34mm Peripheral Glenoid Screw - [id number] Implanted:Qty : 2 on 08/19/2021 by Mina Washington MD at [facility] Screw Right: Shoulder [employer] [id number] / / Insurance [facility] MDCR HMO [facility] Address: [address] [address] [place] [address] [facility] MEDICARE OOS Member Subscriber Plan / Payer (Ef fective 2021-Present) Name:Chung Mueller Relation to Subscriber:Self Name:Chung Mueller Payer ID:[id number] (NAIC) Type:MEDICARE RISK OTHER Address: [address] [place]ARE [place] [facility] [place] [facility]TRA [facility] AD[facility]TRA Advance Directives For more information, please contact: [phone] * Full Code (Latest Code Status on File) Date Activated Date Inactivated Comments 08/19/2021 11:07 AM 08/20/2021 3:42 PM Care Teams Extractor And Wringer Operator Relationship Specialty Start Date End Date Cassandra Mathis DO PCP - General Family Medicine 02/10/21
[2025-04-10 10:20] VITALS: BP 125/70; PULSE 50; RESP 18; TEMP 36.4; O2SAT 99
--- NOTE | 2025-04-10 10:48 | ED_ITS ---
HPI - Nausea/Vomiting/Diarrhea General Chief complaint: Nausea/Vomiting/Diarrhea Stated complaint: diarrhea, blood in stool? x 3 days Time Seen by Provider: 04/10/25 10:26 History of Present Illness HPI Narrative: 74-year-old male with history of CVA, hypertension, hyperlipidemia presents emergency department at bedside for diarrhea for the past 2 days. Patient reports having approximately 4 episodes of diarrhea daily since the onset of symptoms. He states he started taking Pepto-Bismol shortly after the onset of symptoms and has had dark stool since. His last dose of helped a was this morning. He denies bright red blood per rectum, abdominal pain, fever, nausea or vomiting, dysuria or hematuria. He states he has had similar symptoms in the past and has received IV fluids with improvement. He denies prior history of GI bleeds. He states he had a colonoscopy ?a long time ago? which was reportedly normal. Denies history of EGD. He denies recent surgeries, hospitalizations, antibiotic use or travel. Related Data Allergies Allergy/AdvReac Type Severity Reaction Status Date / Time sertraline AdvReac Mild Diarrhea Verified 02/27/25 10:05 Review of Systems 2 Review of Systems: All systems reviewed & are unremarkable except as noted in HPI and below PMFSH Past Medical History Medical History Alcohol dependence Falls frequently Cerebrovascular disease TIA (transient ischemic attack) Tear of right rotator cuff Arthritis of right shoulder region BMI 23.0-23.9, adult Hypertension Gout Basal cell carcinoma Posttraumatic stress disorder Metabolic syndrome Idiopathic peripheral neuropathy Prediabetes Mixed hyperlipidemia Benign essential hypertension Rotator cuff tendonitis Surgical History Surgical History S/p reverse total shoulder arthroplasty (08/19/21) right History of appendectomy (~10/21/09) H/O colonoscopy (~06/2012) H/O colonoscopy (~04/2007) Hx of colonoscopy 2011 Family History Family History Other Family history of cardiovascular disease Family history of elevated blood lipids Social History Social History Social History: Caffeine-soda/tea Years smoked: 48 Smoking status: Current some day smoker Tobacco type: pipe Second hand tobacco smoke exposure: Yes Alcohol intake: current Drinks per week: 15 Substance use: never Substance use type: does not use Do You Feel Safe in your Home?: Yes Lack of Transportation: No Lack of Food: Never True Current Housing: I Have Housing Concerned About Future Housing: No Difficulty Paying Gas/Electric Bills: No Difficulty Paying for Meds: No Currently Unemployed: No Education: High School Diploma/GED Difficulty w/ Childcare or Family Care: No Living arrangements: with family 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on: retired Additional occupation/education comments: retired from [employer] (formerly [employer]) Gender identity (if verbalized by the patient): Male Spiritual care concerns: No Exam 2 Narrative: GENERAL: Well-appearing, well-nourished, and in no acute distress. HEAD: Normocephalic, atraumatic. EYES: EOMI. ENT: Nares clear, no rhinorrhea or epistaxis. Mucous membranes moist. NECK: Supple. CHEST: Clear to auscultation. No respiratory distress. HEART: Regular rate and rhythm. No murmur heard. Normal peripheral pulses. ABDOMEN: Soft, nontender, nondistended, normal active bowel sounds. No rebound, guarding or rigidity. No CVA tenderness. Rectal exam chaperoned by SUKUMAR Robles: Normal external anus with no hemorrhoids or fissures. Mild amount of soft stool in the rectal vault that is dark. No melena or hematochezia. Hemoccult is negative. No palpable internal hemorrhoids. EXTREMITIES: Normal range of motion. No edema. SKIN: Warm, dry, no rash. NEURO: No focal deficits. Alert and oriented x3 Course Vital Signs Vital signs: Vital Signs Temperature 97.6 F 04/10/25 10:20 Pulse Rate 50 L 04/10/25 10:20 Respiratory Rate 18 04/10/25 10:20 Blood Pressure 125/70 04/10/25 10:20 Pulse Oximetry 99 04/10/25 10:20 Temperature 97.6 F 04/10/25 10:20 Pulse Rate 50 L 04/10/25 10:20 Respiratory Rate 18 04/10/25 10:20 Blood Pressure 125/70 04/10/25 10:20 Pulse Oximetry 99 04/10/25 10:20 MDM - Nausea/Vomiting/Diarrhea MDM Narrative Medical decision making narrative: 74-year-old male presents emergency department for diarrhea for the past 2 days. Vitals with bradycardia 50 which appears chronic per chart review. Patient denies sx of bradycardia including any chest pain or shortness of breath, lightheadedness or dizziness. Vital signs are otherwise stable. His abdomen is soft and nontender. Rectal exam shows dark stool but no evidence of melena or hematochezia. No hemorrhoids. Hemoccult is negative. Low suspicion for GI bleed, suspect his dark stool is due to Pepto-Bismol use. EKG shows sinus bradycardia, normal WA interval, normal QRS duration, normal QTC, no ischemic changes. CBC shows no leukocytosis. Hemoglobin is 12.7 which is consistent with recent labs. Platelets mildly low at 132, again consistent with recent labs. Chemistries are unremarkable with normal BUN and creatinine. Viral swabs are negative. Lipase is normal. UA unremarkable. Patient and family at bedside updated on results. Patient received a L of fluids with improvement. He remains resting comfortably in exam bed. I did place diarrheal studies, however patient was unable to provide a sample during his greater than to our ED stay. I suspect his symptoms are due to gastroenteritis. Patient feels safe for discharge home. Encouraged increased fluid intake and follow-up with PCP. Discussed strict ED return precautions. He and his family are agreeable with the plan verbalized understanding. Discharged in stable condition. Lab Data 04/10/25 10:31 04/10/25 10:31 Labs: Lab Results 04/10/25 04/10/25 04/10/25 Range/Units 10:31 10:55 11:58 WBC 4.6 (4.5-10.0) K/mm3 RBC 3.92 L (4.6-6.20) M/mm3 Hgb 12.7 L (14.0-18.0) g/dL Hct 37.1 L (42.0-52.0) % MCV 94.6 (80-100) fl MCH 32.4 (26-34) pg MCHC 34.2 (32-36) g/dl RDW 13.4 (11.5-14.5) % Plt Count 132 L (150-375) k/mm3 MPV 10.1 (7.4-10.4) fl Immature Gran % (Auto) 0.7 H (0-0.5) % Neut % (Auto) 64.1 (45.5-73.1) % Lymph % (Auto) 23.5 (18.3-44.2) % [place] % (Auto) 8.6 H (2.6-8.5) % Eos % (Auto) 2.4 (0-4.4) % Baso % (Auto) 0.7 (0.2-1.2) % Lymph # (Auto) 1.07 (0.9-3.2) K/mm3 [place] # (Auto) 0.4 (0.1-0.6) K/mm3 Eos # (Auto) 0.1 (0-0.3) K/mm3 Baso # (Auto) 0.0 (0.0-0.1) K/mm3 Abs Immat Gran (auto) 0.03 (0.00-0.031) K/mm3 Absolute Neuts (auto) 2.9 (1.3-6.7) K/mm3 Absolute Nucleated RBC 0.000 (0.0-0.012) K/mm3 Nucleated RBC % 0.0 (0.0-0.2) % Sodium 136 L (137-145) mmol/L Potassium 3.6 (3.4-5.0) mmol/L Chloride 102 (98-107) mmol/L Carbon Dioxide 28 (22-30) mmol/L Anion Gap 6 (4-12) mmol/L BUN 14 D (9-20) mg/dL Creatinine 0.87 (0.7-1.3) mg/dL Estim Creat Clear Calc 63 ml/min Estimated GFR > 60 (59 - ) Glucose 111 H (65-110) mg/dL Calcium 8.8 (8.4-10.2) mg/dL Total Bilirubin 0.9 (0.2-1.3) mg/dL AST 29 (17-59) U/L ALT 18 (6-50) U/L Alkaline Phosphatase 53 (38-126) U/L Total Protein 7.3 (6.3-8.2) g/dL Albumin 4.3 (3.5-5.1) g/dL Lipase 100 (23-300) U/L Urine Color Yellow (Yellow) Urine Appearance Clear (Clear) Urine pH 5.5 (5.0-9.0) Ur Specific [place] 1.010 (1.001-1.035) Urine Protein Negative (Negative) mg/dL Urine Glucose (UA) Negative (Negative) mg/dL Urine Ketones Negative (Negative) mg/dL Ur Blood (Man) Negative (Negative) Urine Nitrate Negative (Negative) Urine Bilirubin Negative (Negative) Urine Urobilinogen 1.0 (<2.0) mg/dL Leukocyte Esterase Rfl Negative (Negative) GERRI/UL Influenza A (RT-PCR) Negative (Negative) Influenza B (RT-PCR) Negative (Negative) RSV (RT-PCR) Negative (Negative) SARS-CoV-2 RNA (RT-PCR) Negative (Negative) Discharge Plan Discharge Clinical Impression: Diarrhea Qualifiers: Diarrhea type: unspecified type Qualified Code(s): R19.7 - Diarrhea, unspecified Patient Disposition: Home Condition: Stable Instructions: Antibiotic Form, Acute Diarrhea (ED) Additional Instructions: Your evaluated in the emergency department for diarrhea. Your workup here is reassuring. Your dark stools are due to your Pepto-Bismol use as discussed. This is a common side effect. Please make sure to drink plenty of fluids including water, Gatorade and Pedialyte. Follow-up closely with her primary care provider. Return to the emergency department if you develop chest pain, shortness of breath, lightheadedness, abdominal pain, fever, you are unable to tolerate food or fluids, or other concerning symptoms. Patient Language: Indonesian Prescriptions: No Action atorvastatin 20 mg tablet 40 mg PO QHS Qty: 90 1RF atorvastatin 40 mg tablet 40 mg PO QHS Qty: 90 3RF aspirin [Nash Low Dose Aspirin] 81 mg tablet,delayed release (DR/EC) 81 mg PO DAILY Qty: 90 6RF pregabalin 150 mg capsule 150 mg PO TID Qty: 90 5RF diclofenac sodium 75 mg tablet,delayed release (DR/EC) See Rx Instructions .ROUTE .COMPLEX Qty: 180 1RF Dose Instruction: TAKE 1 TABLET BY MOUTH TWICE DAILY Rx Instructions: TAKE 1 TABLET BY MOUTH TWICE DAILY fenofibrate 54 mg tablet See Rx Instructions .ROUTE .COMPLEX Qty: 90 1RF Dose Instruction: TAKE 1 TABLET BY MOUTH DAILY Rx Instructions: TAKE 1 TABLET BY MOUTH DAILY clopidogrel [Plavix] 75 mg tablet 75 mg PO DAILY Qty: 90 1RF allopurinol 300 mg tablet See Rx Instructions .ROUTE .COMPLEX Qty: 90 1RF Dose Instruction: TAKE 1 TABLET BY MOUTH DAILY Rx Instructions: TAKE 1 TABLET BY MOUTH DAILY Follow-up/Referrals: Cassandra Mathis DO [Primary Care Provider] -
--- NOTE | 2025-04-10 10:50 | ECG_ITS ---
Test Date: 2025-04-10 10:58:44 Measurements Intervals [place] Rate: 45 P: -34 FL: 171 QRS: -11 QRSD: 101 T: 23 QT: 468 QTc: 408 Interpretive Statements SINUS BRADYCARDIA Compared to ECG 12/20/2024 16:05:18 First degree AV block no longer present Myocardial infarct finding no longer present Electronically Signed On 04-10-2025 14:41:55 CDT by Angel Causey M.D.
--- OUTSIDE RECORDS SUMMARY | 2025-04-10 10:54 | XMS_ITS | Clinical Summary ---
Author Organization [facility] Address [address] [place] [address] Care Team Providers Care Experimental Psychologist Name Role Phone Cassandra Mathis DO Primary Care Provider +1- [phone] Allergies No known active allergies Medications allopurinoL [...] (07/21/2021): Added automatically from request for surgery [id number] Immunizations Immunization Administration Dates Next Due [employer] SARS-CoV-2 Monovalent Vaccination (12+ Yrs) PURPLE 07/17/2021,11/22/2020,11/01/2020 [...] Comments Blood Pressure 108/58 08/20/2021 8:35 AM [facility] Pulse 74 08/20/2021 8:35 AM [facility] [facility] Temperature 36.7 C (98 F) 08/20/2021 8:35 AM [facility] Respiratory Rate 18 08/20/2021 8:35 AM [facility] [facility]UR[facility] Oxygen Saturation 98% 08/20/2021 8:35 AM [facility] Inhaled Oxygen Concentration - - Weight 76.9 kg (169 lb 8 oz) 08/19/2021 5:55 AM [facility] Height 177.8 cm (5' 10) 08/19/2021 5:55 AM [facility] Body Mass Index 24.32 08/19/2021 5:55 AM [facility] Plan of Treatment Health Maintenance Due Date [...] 03/03/2016, 08/03 Medical Devices Implanted Type Area Dry Cleaning Teacher Device Identifier Shelf Expiration Date Model / Serial / Lot [employer]anih[employer] [id number] Tornier Aequalis Perform 15mm Press Fit Long Post Shoulder - [id number] - [id number] Implanted:Qty : 1 on 08/19/2021 by Mina Washington MD at [facility] Other - see comments Right: Shoulder [employer] [id number] 04/22/2026 [id number] / [id number] / Tornier Inc [id number] Tornier Aequalis Perform 25mm Lateralize Augment Reverse Shoulder - [id number] - [id number] Implanted:Qty : 1 on 08/19/2021 by Mina Washington MD at [facility] Other - see comments Right: Shoulder [employer] [id number] 06/15/2026 [id number] / [id number] / Tornier Inc [id number] Tornier Aequalis Perform 39mm Reverse Shoulder Standard Sphere - [id number] - [id number] Implanted:Qty : 1 on 08/19/2021 by Mina Washington MD at [facility] Other - see comments Right: Shoulder [employer] [id number] 06/22/2026 [id number] / [id number] / [employer] [id number] Insert Perform 10 Deg [id number] - [id number] - [id number] Implanted:Qty : 1 on 08/19/2021 by Mina Washington MD at [facility] Other - see comments Right: Shoulder [employer] [id number] 01/14/2026 [id number] / [id number] / [employer] Dwx3ss Stem Perform Sz 3 Humeral - Sna - [id number] Implanted:Qty : 1 on 08/19/2021 by Mina Washington MD at [facility] Other - see comments Right: Shoulder [employer] DWX3SS / NA / Tornier Inc [id number] Aequalis Perform Reversed 5mm 34mm Peripheral Glenoid Screw - [id number] Implanted:Qty : 2 on 08/19/2021 by Mina Washington MD at [facility] Screw Right: Shoulder [employer] [id number] / / Insurance [facility] MDCR HMO [facility] Address: [address] [address] [place] [address] [facility] MEDICARE OOS Member Subscriber Plan / Payer (Ef fective 2021-Present) Name:Chung Mueller Relation to Subscriber:Self Name:Chung Mueller Payer ID:[id number] (NAIC) Type:MEDICARE RISK OTHER Address: [address] [place]ARE [place] [facility] [place]ARE [place] [facility] Advance Directives For more information, please contact: [phone] * Full Code (Latest Code Status on File) Date Activated Date Inactivated Comments 08/19/2021 11:07 AM 08/20/2021 3:42 PM Care Teams Experimental Psychologist Relationship Specialty Start Date End Date Cassandra Mathis DO PCP - General Family Medicine 02/10/21
--- OUTSIDE RECORDS SUMMARY | 2025-04-10 10:54 | XMS_ITS | Continuity of Care Document ---
Author Name [facility] Organization [facility] Care Team Providers Care Gage Maker Name Role Phone [facility] Unavailable Unavailable Problems Combined list of problems from Department of Defense and [facility] Affairs facilities. It does not include entries that were removed or entered in error. Problem Status Onset Date Problem Type Date of Resolution Comments Source Transient cerebral ischemia Active 2 Condition [facility] Decreased vitamin B12 level (SNOMED CT 388932421) Active Condition [facility] Erectile dysfunction (SNOMED CT 200946403) Active Condition [facility] Gout Active Condition [facility] Hyperlipidemia Active Condition [facility] Peripheral neuropathy (SNOMED CT 321685222) Active Condition February 09, 2011 Entered By: JADE MARTINEZ A Comment: diagnosed about 3 years ago [facility] Posttraumatic stress disorder Active Condition [facility] Prediabetes Active Condition [facility] Skin eruption Active Condition [facility] Tinnitus Active Condition [facility] Tobacco use Active Condition [facility] Vitamin D deficiency (SNOMED CT 63485065) Active Condition [facility] Chronic low back pain (SNOMED CT 803090614) Inactive Condition 09/30/2023 Nov 14, 2013 Entered By: JADE MARTINEZ A Comment: on SS disability [facility] Depression Inactive Condition 09/30/2023 [facility] Neck Pain Inactive Condition 09/30/2023 [facility] Persistent alcohol abuse (SNOMED 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 Medications Combined list of outpatient medications [...] DAY ORAL ACTIVE AWAD,SHE LBY R 2024 [facility] ASPIRIN 81MG TAB,EC TAKE ONE TABLET BY MOUTH ONCE A DAY ORAL ACTIVE AWAD,SHE LBY R 2024 [facility] ATORVASTATI N CA 80MG TAB TAKE ONE-HALF TABLET BY MOUTH EVERY EVENING ORAL ACTIVE AWAD,SHE LBY R 2024 [facility] CHOLECALCIF LASHAWN 50MCG (2,000UNIT) TAB TAKE TWO TABLETS BY MOUTH ONCE A DAY ORAL ACTIVE EZEKIEL MARTINEZ 2010 [facility] CLOPIDOGREL BISULFATE 75MG TAB TAKE ONE TABLET BY MOUTH ONCE A DAY ORAL ACTIVE AWAD,SHE LBY R 2024 [facility] CYANOCOBALA MIN 1000MCG TAB TAKE ONE TABLET BY MOUTH ONCE A DAY ORAL ACTIVE AWAD,SHE LBY R 2024 [facility] DICLOFENAC NA 75MG TAB,EC TAKE ONE TABLET BY MOUTH EVERY MORNING AND EVENING ORAL ACTIVE AWAD,SHE LBY R 2024 [facility] FENOFIBRATE TAB TAKE 54 MG BY MOUTH ONCE A DAY ORAL ACTIVE AWAD,SHE LBY R 2024 [facility] GARLIC OIL TAB,EC TAKE ONE TABLET BY MOUTH ORAL ACTIVE AWAD,SHE LBY R 2022 [facility] PREGABALIN 150MG CAP,ORAL TAKE ONE CAPSULE BY MOUTH THREE TIMES A DAY FOR NEUROPAT HIC PAIN. *MAY CAUSE DROWSINE SS* ORAL ACTIVE 04/27/2025 [id number] Hayden CABRERA 2024 90 [facility] PREGABALIN 150MG CAP,ORAL TAKE ONE CAPSULE BY MOUTH THREE TIMES A DAY FOR NEUROPAT HIC PAIN. *MAY CAUSE DROWSINE SS* ORAL DISCONT INUED 03/13/2025 [id number] 5 KELY AWAD R 2024 90 [facility] PREGABALIN 150MG CAP,ORAL TAKE ONE CAPSULE BY MOUTH THREE TIMES A DAY FOR NEUROPAT HIC PAIN. *MAY CAUSE DROWSINE SS* ORAL DISCONT INUED 02/03/2025 [id number] 5 KELY AWAD R 2024 90 [facility] PREGABALIN 150MG CAP,ORAL TAKE ONE CAPSULE BY MOUTH THREE TIMES A DAY FOR NEUROPAT HIC PAIN. *MAY CAUSE DROWSINE SS* ORAL DISCONT INUED 12/26/2024 [id number] 5 KELY AWAD R 2024 90 [facility] PREGABALIN 150MG CAP,ORAL TAKE ONE CAPSULE BY MOUTH THREE TIMES A DAY FOR NEUROPAT HIC PAIN. *MAY CAUSE DROWSINE SS* ORAL DISCONT INUED 11/17/2024 [id number] 5 KELY AWAD R 2024 90 [facility] PREGABALIN 150MG CAP,ORAL TAKE ONE CAPSULE BY MOUTH THREE TIMES A DAY FOR NEUROPAT HIC PAIN. *MAY CAUSE DROWSINE SS* ORAL DISCONT INUED BY PROVIDE R 09/20/2024 [id number] 4 KELY AWAD R 2023 90 [facility] PREGABALIN 150MG CAP,ORAL TAKE ONE CAPSULE BY MOUTH THREE TIMES A DAY FOR NEUROPAT HIC PAIN. *MAY CAUSE DROWSINE SS* ORAL DISCONT INUED 07/25/2024 [id number] 4 Hayden CABRERA 2023 90 [facility] PREGABALIN 150MG CAP,ORAL TAKE ONE CAPSULE BY MOUTH THREE TIMES A DAY FOR NEUROPAT HIC PAIN. *MAY CAUSE DROWSINE SS* ORAL DISCONT INUED 06/13/2024 [id number] 4 KELY AWAD R 2023 90 [facility] PREGABALIN 150MG CAP,ORAL TAKE ONE CAPSULE BY MOUTH THREE TIMES A DAY FOR NEUROPAT HIC PAIN. *MAY CAUSE DROWSINE SS* ORAL DISCONT INUED 05/09/2024 [id number] 4 RITESH,KELY CASTANEDA R 2023 90 [facility] SILDENAFIL CITRATE 100MG TAB TAKE ONE TABLET BY MOUTH EVERY WEEK NEEDED FOR ERECTILE DYSFUNCT ION (TAKE 60 MINUTES PRIOR TO SEXUAL ACTIVITY ) - LIMIT 6 DOSES PER 30 DAYS ORAL 03/31/2025 [id number] 4 KELY AWAD R 2023 18 [facility] Allergies, Adverse Reactions, Alerts Combined list [...] Site Reaction Lot Number CVX Code Drug Direct Response Consultant Status Comments Source COVID-19 (PFIZER), MRNA, LNP-S, PF, ASHANTI-SUCROSE, 30 MCG/0.3 ML (AGES 12+ YEARS) 5 2023 309 complet ed HISTORICA L INFORMATI ON - FROM OTHER [facility], [facility] INFLUENZA, HIGH-DOSE, TRIVALENT, PF 1 2023 135 complet ed HISTORICA L INFORMATI ON - FROM OTHER [facility], [facility] COVID-19 (MODERNA), MRNA, LNP-S, PF, 50 MCG/0.5 ML (AGES 12+ YEARS) 1 2022 SANDRA RAMOS RIGHT DELTO ID [id number] 312 complet ed [facility] INFLUENZA, HIGH-DOSE, QUADRIVALENT, PF 1 2022 197 complet ed HISTORICA L INFORMATI ON - FROM OTHER [facility], [facility] INFLUENZA, UNSPECIFIED FORMULATION 2022 88 complet ed HISTORICA L INFORMATI ON - FROM PATIENT'S RECALL, [facility] INFLUENZA, HIGH-DOSE, QUADRIVALENT, PF 1 2021 197 complet ed HISTORICA L INFORMATI ON - FROM OTHER REGISTRY, [facility] PNEUMOCOCCAL POLYSACCHARID E PPV23 2 2021 33 complet ed HISTORICA L INFORMATI ON - [facility] OTHER [facility]RY, [facility]-19 (MODERNA), MRNA, LNP-S, PF, 100 MCG/0.5ML DOSE OR 50 MCG/0.25ML DOSE 3 2021 207 complet ed MOD; [id number]; 2 [facility] ZOSTER RECOMBINANT 2 2021 187 complet ed HISTORICA L INFORMATI ON - FROM OTHER REGISTRY, [facility] COVID-19 (PFIZER), MRNA, LNP-S, PF, 30 MCG/0.3 ML DOSE 3 2020 208 complet ed PFR; [id number]; 1 [facility] PNEUMOCOCCAL POLYSACCHARID E PPV23 1 2020 33 complet ed HISTORICA L INFORMATI ON - FROM OTHER REGISTRY, [facility] ZOSTER RECOMBINANT 1 2020 187 complet ed HISTORICA L INFORMATI ON - FROM OTHER REGISTRY, [facility] INFLUENZA, HIGH-DOSE, QUADRIVALENT, PF 1 2020 197 complet ed HISTORICA L INFORMATI ON - FROM OTHER REGISTRY, [facility] COVID-19 (PFIZER), MRNA, LNP-S, PF, 30 MCG/0.3 ML DOSE 2 2020 208 complet ed PFR; [id number]; 1 [facility] COVID-19 (PFIZER), MRNA, LNP-S, PF, 30 MCG/0.3 ML DOSE 1 2020 208 complet ed PFR; [id number]; [facility] INFLU[facility]ZA, HIGH-DOSE, QUADRIVALENT 2019 197 complet ed HISTORICA L INFORMATI ON - FROM OTHER PROVIDER, [facility] Administe red by: [facility] Clinician (NPI=Not Provided) . Partner 7 Lot#: [id number] Mfr: sanofi pasteur; Dosage: [id number] ml [facility] INFLUENZA, UNSPECIFIED FORMULATION 2019 88 complet ed [facility] INFLUENZA, UNSPECIFIED FORMULATION 2018 88 complet ed [facility] INFLUENZA, TRIVALENT, ADJUVANTED 2018 168 complet ed HISTORICA L INFORMATI ON - FROM OTHER PROVIDER, Partner: [facility]. Administe red by: [facility] Clinician (NPI=Not Provided) . Partner 7 Lot#: [id number] Mfr: [employer] [facility] INFLUENZA, INJECTABLE, QUADRIVALENT, PRESERVATIVE FREE 2017 150 complet ed 02, [facility] Administe red by: [facility] Clinician (NPI=Not Provided) . Partner 7 Lot#: [id number] Mfr: [employer] [facility] INFLUENZA, SPLIT VIRUS, QUADRIVALENT, PF 2 2017 150 complet ed HISTORICA L INFORMATI ON - FROM OTHER REGISTRY, [facility] INFLUENZA, HIGH-DOSE, TRIVALENT, PF 1 2017 135 complet ed HISTORICA L INFORMATI ON - FROM OTHER [facility] TDAP 2017 115 complet ed Right Deltoid [facility] TD (ADULT), 2 LF TETANUS TOXOID, PRESERVATIVE FREE, ADSORBED 1 2017 09 complet ed HISTORICA L INFORMATI ON - FROM OTHER REGISTRY, [facility] INFLUENZA, HIGH-DOSE, TRIVALENT, PF 1 2016 135 complet ed HISTORICA L INFORMATI ON - FROM OTHER REGISTRY, [facility] INFLUENZA, UNSPECIFIED FORMULATION 2016 88 complet ed [facility] INFLUENZA, UNSPECIFIED FORMULATION 2015 88 complet ed [facility] NOVEL INFLUENZA-H1N 1-09, ALL FORMULATIONS 1 2015 128 complet ed HISTORICA L INFORMATI ON - [facility] OTHER [facility] PNEUMOCOCC[facility] POLYSACCHARID E PPV23 2015 33 complet ed [facility] PNEUMOCOCCAL CONJUGATE PCV 13 2014 133 complet ed [facility] INFLUENZA, UNSPECIFIED FORMULATION 2014 88 complet ed [facility] INFLUENZA, HIGH-DOSE, TRIVALENT, PF 1 2014 135 complet ed HISTORICA L INFORMATI ON - FROM OTHER REGISTRY, [facility] INFLUENZA, UNSPECIFIED FORMULATION 2013 88 complet ed [facility] INFLUENZA, UNSPECIFIED FORMULATION 2013 88 complet ed [facility] INFLUENZA, UNSPECIFIED FORMULATION 2012 88 complet ed [place] INFLUEN[place], UNSPECIFIED FORMULATION 2012 88 complet ed [facility] INFLUENZA, UNSPECIFIED FORMULATION 2012 88 complet ed [facility] INFLUENZA, UNSPECIFIED FORMULATION 2011 88 complet ed [facility] ZOSTER LIVE 2011 121 complet ed [facility] INFLUENZA, UNSPECIFIED FORMULATION 2010 88 complet ed [facility] INFLUENZA, UNSPECIFIED FORMULATION 2010 88 complet ed [facility] INFLUENZA, UNSPECIFIED FORMULATION 2009 88 [...] its performance characteris tics confirmed by the [facility] laboratory thru method comparison with reference laboratory and medication chart review. The laboratory is regulated under CLIA as qualified to perform high-comple xity testing. Fentanyl is used for clinical purposes in conjunction with other laboratory tests. Ordering Provider: JAIME AWAD Report Released Date/Time: Oct 11, 2024 10:37 AM Reporting Lab: [facility] [address] [facility] [address] Performing Lab: [address] [address] [facility] URINE DRUG SCREEN (STL) AMPHETAMINE [PRESENCE] IN URINE BY SCREEN METHOD Negative ng/mL 10/16 Specimen Type: URINE Comment: The cut-off value for Fentanyl was laboratory developed and its performance characteris tics confirmed by the [facility] laboratory thru method comparison with reference laboratory and medication chart review. The laboratory is regulated under CLIA as qualified to perform high-comple xity testing. Fentanyl is used for clinical purposes in conjunction with other laboratory tests. Ordering Provider: JAIME AWAD Report Released Date/Time: Oct 11, 2024 10:37 AM Reporting Lab: [facility] [address] [facility] [address] Performing Lab: [address] [address] [facility] URINE DRUG SCREEN (STL) BENZOYLECGO NINE [PRESENCE] IN URINE Negative ng/mL 10/16 Specimen Type: URINE Comment: The cut-off value for Fentanyl was laboratory developed and its performance characteris tics confirmed by the [facility] laboratory thru method comparison with reference laboratory and medication chart review. The laboratory is regulated under CLIA as qualified to perform high-comple xity testing. Fentanyl is used for clinical purposes in conjunction with other laboratory tests. Ordering Provider: JAIME AWAD Report Released Date/Time: Oct 11, 2024 10:37 AM Reporting Lab: [facility] [address] [place] [facility] [address] Performing Lab: [facility] [address] [facility] [address] [facility] URINE DRUG SCREEN (STL) BENZODIAZEP SHAHAB [PRESENCE] IN URINE BY SCREEN METHOD Negative ng/mL 10/16 Specimen Type: URINE Comment: The cut-off value for Fentanyl was laboratory developed and its performance characteris tics confirmed by the [facility] laboratory thru method comparison with reference laboratory and medication chart review. The laboratory is regulated under CLIA as qualified to perform high-comple xity testing. Fentanyl is used for clinical purposes in conjunction with other laboratory tests. Ordering Provider: JAIME AWAD Report Released Date/Time: Oct 11, 2024 10:37 AM Reporting Lab: [facility] [address] [facility] [address] Performing Lab: [place] [address] [facility] [address] [facility] URINE DRUG SCREEN (STL) CANNABINOID S [PRESENCE] IN URINE BY SCREEN METHOD Negative ng/mL 10/16 Specimen Type: URINE Comment: The cut-off value for Fentanyl was laboratory developed and its performance characteris tics confirmed by the [facility] laboratory thru method comparison with reference laboratory and medication chart review. The laboratory is regulated under CLIA as qualified to perform high-comple xity testing. Fentanyl is used for clinical purposes in conjunction with other laboratory tests. Ordering Provider: JAIME AWAD Report Released Date/Time: Oct 11, 2024 10:37 AM Reporting Lab: [facility] [address] [facility] [address] Performing Lab: [facility] [address] [facility] [address] [facility] URINE DRUG SCREEN (STL) METHADONE [PRESENCE] IN URINE Negative ng/mL 10/16 Specimen Type: URINE Comment: The cut-off value for Fentanyl was laboratory developed and its performance characteris tics confirmed by the [facility] laboratory thru method comparison with reference laboratory and medication chart review. The laboratory is regulated under CLIA as qualified to perform high-comple xity testing. Fentanyl is used for clinical purposes in conjunction with other laboratory tests. Ordering Provider: JAIME AWAD Report Released Date/Time: Oct 11, 2024 10:37 AM Reporting Lab: [facility] [address] [facility] [address] Performing Lab: [facility] [address] [facility] [address] [facility] URINE DRUG SCREEN (STL) OPIATES [PRESENCE] IN URINE BY SCREEN METHOD Negative ng/mL 10/16 Specimen Type: URINE Comment: The cut-off value for Fentanyl was laboratory developed and its performance characteris tics confirmed by the [facility] laboratory thru method comparison with reference laboratory and medication chart review. The laboratory is regulated under CLIA as qualified to perform high-comple xity testing. Fentanyl is used for clinical purposes in conjunction with other laboratory tests. Ordering Provider: JAIME AWAD Report Released Date/Time: Oct 11, 2024 10:37 AM Reporting Lab: [facility] [address] [facility] [address] Performing Lab: [place] [address] [facility] [address] [facility] URINE DRUG SCREEN (STL) CREATININE [MASS/VOLUM E] IN URINE 71.9 mg/dL 63 - 166 10/16 Specimen Type: URINE Comment: The cut-off value for Fentanyl was laboratory developed and its performance characteris tics confirmed by the [facility] laboratory thru method comparison with reference laboratory and medication chart review. The laboratory is regulated under CLIA as qualified to perform high-comple xity testing. Fentanyl is used for clinical purposes in conjunction with other laboratory tests. Ordering Provider: JAIME AWAD Report Released Date/Time: Oct 11, 2024 10:37 AM Reporting Lab: [facility] [address] [facility] [address] Performing Lab: [facility] [address] [facility] [address] [facility] URINE DRUG SCREEN (STL) OXYCODONE CUTOFF [MASS/VOLUM E] IN URINE FOR SCREEN METHOD Negative ng/mL 10/16 Specimen Type: URINE Comment: The cut-off value for Fentanyl was laboratory developed and its performance characteris tics confirmed by the [facility] laboratory thru method comparison with reference laboratory and medication chart review. The laboratory is regulated under CLIA as qualified to perform high-comple xity testing. Fentanyl is used for clinical purposes in conjunction with other laboratory tests. Ordering Provider: JAIME AWAD Report Released Date/Time: Oct 11, 2024 10:37 AM Reporting Lab: [place] [address] [facility] [address] Performing Lab: [address] [address] [facility] URINE DRUG SCREEN (L) BUPRENORPHI NE [PRESENCE] IN URINE Negative ng/mL 10/16 Specimen Type: URINE Comment: The cut-off value for Fentanyl was laboratory developed and its performance characteris tics confirmed by the [facility] laboratory thru method comparison with reference laboratory and medication chart review. The laboratory is regulated under CLIA as qualified to perform high-comple xity testing. Fentanyl is used for clinical purposes in conjunction with other laboratory tests. Ordering Provider: JAIME AWAD Report Released Date/Time: Oct 11, 2024 10:37 AM Reporting Lab: [place] [address] [place] [facility] [address] Performing Lab: [place] [address] [facility] [address] [facility] URINE DRUG SCREEN (STL) FENTANYL [PRESENCE] IN URINE Negative ng/mL 10/16 Specimen Type: URINE Comment: The cut-off value for Fentanyl was laboratory developed and its performance characteris tics confirmed by the [facility] laboratory thru method comparison with reference laboratory and medication chart review. The laboratory is regulated under CLIA as qualified to perform high-comple xity testing. Fentanyl is used for clinical purposes in conjunction with other laboratory tests. Ordering Provider: JAIME AWAD Report Released Date/Time: Oct 11, 2024 10:37 AM Reporting Lab: [facility] [address] [facility] [address] Performing Lab: [facility] [address] [facility] [address] [facility] METHADONE PANEL (STL) ETHANOL [MASS/VOLUM E] IN URINE 55-POSmg /dL 0 - 20 04/09 H Specimen Type: URINE Comment: The cut-off value for this test was laboratory developed and its performance characteris tics confirmed by the [facility] laboratory thru method comparison with reference laboratory and medication chart review. The laboratory is regulated under CLIA as qualified to perform high-comple xity testing. This test is used for clinical purposes in conjunction with other laboratory tests. Ordering Provider: JAIME AWAD Report Released Date/Time: Mar 30, 2024 09:55 AM Reporting Lab: [facility] [address] [facility] [address] Performing Lab: [address] [address] [facility] METHADONE PANEL (STL) AMPHETAMINE [PRESENCE] IN URINE BY SCREEN METHOD Negative ng/mL 04/09 Specimen Type: URINE Comment: The cut-off value for this test was laboratory developed and its performance characteris tics confirmed by the [facility] laboratory thru method comparison with reference laboratory and medication chart review. The laboratory is regulated under CLIA as qualified to perform high-comple xity testing. This test is used for clinical purposes in conjunction with other laboratory tests. Ordering Provider: JAIME AWAD Report Released Date/Time: Mar 30, 2024 09:55 AM Reporting Lab: [address] [address] Performing Lab: [address] [address] [facility] METHADONE PANEL (STL) BENZOYLECGO NINE [PRESENCE] IN URINE Negative ng/mL 04/09 Specimen Type: URINE Comment: The cut-off value for this test was laboratory developed and its performance characteris tics confirmed by the [facility] laboratory thru method comparison with reference laboratory and medication chart review. The laboratory is regulated under CLIA as qualified to perform high-comple xity testing. This test is used for clinical purposes in conjunction with other laboratory tests. Ordering Provider: JAIME AWAD Report Released Date/Time: Mar 30, 2024 09:55 AM Reporting Lab: [facility] [address] [facility] [address] Performing Lab: [facility] [address] [facility] [address] [facility] METHADONE PANEL (STL) BENZODIAZEP SHAHAB [PRESENCE] IN URINE BY SCREEN METHOD Negative ng/mL 04/09 Specimen Type: URINE Comment: The cut-off value for this test was laboratory developed and its performance characteris tics confirmed by the [facility] laboratory thru method comparison with reference laboratory and medication chart review. The laboratory is regulated under CLIA as qualified to perform high-comple xity testing. This test is used for clinical purposes in conjunction with other laboratory tests. Ordering Provider: JAIME AWAD Report Released Date/Time: Mar 30, 2024 09:55 AM Reporting Lab: [facility] [address] [place] [facility] [address] Performing Lab: [place] [address] [facility] [address] [facility] METHADONE PANEL (STL) CANNABINOID S [PRESENCE] IN URINE BY SCREEN METHOD Negative ng/mL 04/09 Specimen Type: URINE Comment: The cut-off value for this test was laboratory developed and its performance characteris tics confirmed by the [facility] laboratory thru method comparison with reference laboratory and medication chart review. The laboratory is regulated under CLIA as qualified to perform high-comple xity testing. This test is used for clinical purposes in conjunction with other laboratory tests. Ordering Provider: JAIME AWAD Report Released Date/Time: Mar 30, 2024 09:55 AM Reporting Lab: [facility] [address] [facility] [address] Performing Lab: [facility] [address] [facility] [address] [facility] METHADONE PANEL (STL) METHADONE [PRESENCE] IN URINE Negative ng/mL 04/09 Specimen Type: URINE Comment: The cut-off value for this test was laboratory developed and its performance characteris tics confirmed by the [facility] laboratory thru method comparison with reference laboratory and medication chart review. The laboratory is regulated under CLIA as qualified to perform high-comple xity testing. This test is used for clinical purposes in conjunction with other laboratory tests. Ordering Provider: JAIME AWAD Report Released Date/Time: Mar 30, 2024 09:55 AM Reporting Lab: [facility] [address] [facility] [address] Performing Lab: [address] [address] [facility] METHADONE PANEL (STL) OPIATES [PRESENCE] IN URINE BY SCREEN METHOD Negative ng/mL 04/09 Specimen Type: URINE Comment: The cut-off value for this test was laboratory developed and its performance characteris tics confirmed by the [facility] laboratory thru method comparison with reference laboratory and medication chart review. The laboratory is regulated under CLIA as qualified to perform high-comple xity testing. This test is used for clinical purposes in conjunction with other laboratory tests. Ordering Provider: JAIME AWAD Report Released Date/Time: Mar 30, 2024 09:55 AM Reporting Lab: [facility] [address] [address] Performing Lab: [facility] [address] [address] [facility] METHADONE PANEL (STL) CREATININE [MASS/VOLUM E] IN URINE 98.8 mg/dL 63 - 166 04/09 Specimen Type: URINE Comment: The cut-off value for this test was laboratory developed and its performance characteris tics confirmed by the [facility] laboratory thru method comparison with reference laboratory and medication chart review. The laboratory is regulated under CLIA as qualified to perform high-comple xity testing. This test is used for clinical purposes in conjunction with other laboratory tests. Ordering Provider: JAIME AWAD Report Released Date/Time: Mar 30, 2024 09:55 AM Reporting Lab: [facility] [address] [facility] [address] Performing Lab: [facility] [address] [facility] [address] [facility] METHADONE PANEL (STL) OXYCODONE CUTOFF [MASS/VOLUM E] IN URINE FOR SCREEN METHOD Negative ng/mL 04/09 Specimen Type: URINE Comment: The cut-off value for this test was laboratory developed and its performance characteris tics confirmed by the [facility] laboratory thru method comparison with reference laboratory and medication chart review. The laboratory is regulated under CLIA as qualified to perform high-comple xity testing. This test is used for clinical purposes in conjunction with other laboratory tests. Ordering Provider: JAIME AWAD Report Released Date/Time: Mar 30, 2024 09:55 AM Reporting Lab: [facility] [address] [address] Performing Lab: [address] [address] [facility] METHADONE PANEL (STL) BUPRENORPHI NE [PRESENCE] IN URINE Negative 04/09 Specimen Type: URINE Comment: The cut-off value for this test was laboratory developed and its performance characteris tics confirmed by the [facility] laboratory thru method comparison with reference laboratory and medication chart review. The laboratory is regulated under CLIA as qualified to perform high-comple xity testing. This test is used for clinical purposes in conjunction with other laboratory tests. Ordering Provider: JAIME AWAD Report Released Date/Time: Mar 30, 2024 09:55 AM Reporting Lab: [place] [address] [facility] [address] Performing Lab: [place] [address] [address] [facility] METHADONE PANEL (STL) FENTANYL [PRESENCE] IN URINE Negative ng/mL 04/09 Specimen Type: URINE Comment: The cut-off value for this test was laboratory developed and its performance characteris tics confirmed by the [facility] laboratory thru method comparison with reference laboratory and medication chart review. The laboratory is regulated under CLIA as qualified to perform high-comple xity testing. This test is used for clinical purposes in conjunction with other laboratory tests. Ordering Provider: JAIME AWAD Report Released Date/Time: Mar 30, 2024 09:55 AM Reporting Lab: [place] [address] [facility] [address] Performing Lab: [place] [address] [facility] [address] [facility] METHADONE PANEL (STL) ETHANOL [MASS/VOLUM E] IN URINE 28-POSmg /dL 0 - 20 09/30 H Specimen Type: URINE Comment: The cut-off value for this test was laboratory developed and its performance characteris tics confirmed by the [facility] laboratory thru method comparison with reference laboratory and medication chart review. The laboratory is regulated under CLIA as qualified to perform high-comple xity testing. This test is used for clinical purposes in conjunction with other laboratory tests. Ordering Provider: JAIME AWAD Report Released Date/Time: Aug 26, 2023 09:14 AM Reporting Lab: [facility] [address] [address] Performing Lab: [address] [address] [facility] METHADONE PANEL (STL) AMPHETAMINE [PRESENCE] IN URINE BY SCREEN METHOD Negative ng/mL 09/30 Specimen Type: URINE Comment: The cut-off value for this test was laboratory developed and its performance characteris tics confirmed by the [facility] laboratory thru method comparison with reference laboratory and medication chart review. The laboratory is regulated under CLIA as qualified to perform high-comple xity testing. This test is used for clinical purposes in conjunction with other laboratory tests. Ordering Provider: JAIME AWAD Report Released Date/Time: Aug 26, 2023 09:14 AM Reporting Lab: [facility] [address] [address] Performing Lab: [facility] [address] [address] [facility] METHADONE PANEL (STL) BENZOYLECGO NINE [PRESENCE] IN URINE Negative ng/mL 09/30 Specimen Type: URINE Comment: The cut-off value for this test was laboratory developed and its performance characteris tics confirmed by the [facility] laboratory thru method comparison with reference laboratory and medication chart review. The laboratory is regulated under CLIA as qualified to perform high-comple xity testing. This test is used for clinical purposes in conjunction with other laboratory tests. Ordering Provider: JAIME AWAD Report Released Date/Time: Aug 26, 2023 09:14 AM Reporting Lab: [address] [address] Performing Lab: [place] [address] [facility] [address] [facility] METHADONE PANEL (STL) BENZODIAZEP SHAHAB [PRESENCE] IN URINE BY SCREEN METHOD Negative ng/mL 09/30 Specimen Type: URINE Comment: The cut-off value for this test was laboratory developed and its performance characteris tics confirmed by the [facility] laboratory thru method comparison with reference laboratory and medication chart review. The laboratory is regulated under CLIA as qualified to perform high-comple xity testing. This test is used for clinical purposes in conjunction with other laboratory tests. Ordering Provider: JAIME AWAD Report Released Date/Time: Aug 26, 2023 09:14 AM Reporting Lab: [place] [address] [facility] [place] [address] Performing Lab: [place] [address] [facility] [address] [facility] METHADONE PANEL (STL) CANNABINOID S [PRESENCE] IN URINE BY SCREEN METHOD Negative ng/mL 09/30 Specimen Type: URINE Comment: The cut-off value for this test was laboratory developed and its performance characteris tics confirmed by the [facility] laboratory thru method comparison with reference laboratory and medication chart review. The laboratory is regulated under CLIA as qualified to perform high-comple xity testing. This test is used for clinical purposes in conjunction with other laboratory tests. Ordering Provider: JAIME AWAD Report Released Date/Time: Aug 26, 2023 09:14 AM Reporting Lab: [facility] [address] [address] Performing Lab: [facility] [address] [address] [facility] METHADONE PANEL (STL) METHADONE [PRESENCE] IN URINE Negative ng/mL 09/30 Specimen Type: URINE Comment: The cut-off value for this test was laboratory developed and its performance characteris tics confirmed by the [facility] laboratory thru method comparison with reference laboratory and medication chart review. The laboratory is regulated under CLIA as qualified to perform high-comple xity testing. This test is used for clinical purposes in conjunction with other laboratory tests. Ordering Provider: JAIME AWAD Report Released Date/Time: Aug 26, 2023 09:14 AM Reporting Lab: [facility] [address] [address] Performing Lab: [place] [address] [facility] [address] [facility] METHADONE PANEL (STL) OPIATES [PRESENCE] IN URINE BY SCREEN METHOD Negative ng/mL 09/30 Specimen Type: URINE Comment: The cut-off value for this test was laboratory developed and its performance characteris tics confirmed by the [facility] laboratory thru method comparison with reference laboratory and medication chart review. The laboratory is regulated under CLIA as qualified to perform high-comple xity testing. This test is used for clinical purposes in conjunction with other laboratory tests. Ordering Provider: JAIME AWAD Report Released Date/Time: Aug 26, 2023 09:14 AM Reporting Lab: [facility] [address] [facility] [address] Performing Lab: [address] [address] [facility] METHADONE PANEL (STL) CREATININE [MASS/VOLUM E] IN URINE 127.2 mg/dL 63 - 166 09/30 Specimen Type: URINE Comment: The cut-off value for this test was laboratory developed and its performance characteris tics confirmed by the [facility] laboratory thru method comparison with reference laboratory and medication chart review. The laboratory is regulated under CLIA as qualified to perform high-comple xity testing. This test is used for clinical purposes in conjunction with other laboratory tests. Ordering Provider: JAIME AWAD Report Released Date/Time: Aug 26, 2023 09:14 AM Reporting Lab: [facility] [address] [address] Performing Lab: [facility] [address] [address] [facility] METHADONE PANEL (STL) OXYCODONE CUTOFF [MASS/VOLUM E] IN URINE FOR SCREEN METHOD Negative ng/mL 09/30 Specimen Type: URINE Comment: The cut-off value for this test was laboratory developed and its performance characteris tics confirmed by the [facility] laboratory thru method comparison with reference laboratory and medication chart review. The laboratory is regulated under CLIA as qualified to perform high-comple xity testing. This test is used for clinical purposes in conjunction with other laboratory tests. Ordering Provider: JAIME AWAD Report Released Date/Time: Aug 26, 2023 09:14 AM Reporting Lab: [facility] [address] [facility] [place] [address] Performing Lab: [facility] [address] [address] [facility] METHADONE PANEL (STL) BUPRENORPHI NE [PRESENCE] IN URINE Negative 09/30 Specimen Type: URINE Comment: The cut-off value for this test was laboratory developed and its performance characteris tics confirmed by the [facility] laboratory thru method comparison with reference laboratory and medication chart review. The laboratory is regulated under CLIA as qualified to perform high-comple xity testing. This test is used for clinical purposes in conjunction with other laboratory tests. Ordering Provider: JAIME AWAD Report Released Date/Time: Aug 26, 2023 09:14 AM Reporting Lab: [facility] [address] [facility] [place] [address] Performing Lab: [facility] [address] [facility] [address] [facility] METHADONE PANEL (STL) FENTANYL [PRESENCE] IN URINE Negative ng/mL 09/30 Specimen Type: URINE Comment: The cut-off value for this test was laboratory developed and its performance characteris tics confirmed by the [facility] laboratory thru method comparison with reference laboratory and medication chart review. The laboratory is regulated under CLIA as qualified to perform high-comple xity testing. This test is used for clinical purposes in conjunction with other laboratory tests. Ordering Provider: JAIME AWAD Report Released Date/Time: Aug 26, 2023 09:14 AM Reporting Lab: [address] [address] Performing Lab: [address] [address] [facility] Vital Signs Combined list of inpatient and outpatient Vital Signs from Department of Defense and Veterans Affairs, ranging from 12 months to all on record, depending upon the facility. Vital Sign Value Date Comments Source SYSTOLIC BLOOD PRESSURE 122 10/11/2024 10:15:54 [facility] DIASTOLIC BLOOD PRESSURE 74 10/11/2024 10:15:54 [facility] PULSE OXIMETRY 100 10/11/2024 10:15:54 [facility] WEIGHT 161.2 10/11/2024 10:15:54 [facility] BMI 23 kg/m2 10/11/2024 10:15:54 [facility] PAIN 0 10/11/2024 10:15:54 [facility] TEMPERATURE 97.5 10/11/2024 10:15:54 [facility] PULSE 57 10/11/2024 10:15:54 [facility] RESPIRATION 18 10/11/2024 10:15:54 [facility] Encounters Combined list of: 1) Encounters from Department of Veterans Affairs facilities going backup to the last 18 months, not all VA inpatient encounters are included; 2) Encounters from the Department of Defense facilities going backup to 280 months. Location Location Details Encounter Type Encounter Number Reason For Visit Attending Provider ADM Date DC Date Status Disposition Source [facility] Outpatient Encounter [id number] 01/10 [facility] Outpatient Encounter [id number] ZACK HERNANDEZ 02/06 [facility] OFFICE O/P EST MOD 30 MIN [id number] Diagnos is: ICD-10- CM E78.5 Hyperli pidemia , unspeci JOSEPH Fan BY R 03/30 [facility] Outpatient Encounter [id number] 07/11 [facility] Outpatient Encounter [id number] 08/20 [facility] EXAM EST PT 1/> [id number] Diagnos is: ICD-10- CM H25.11 Age-rel ated nuclear catarac t, right eye АЛЕКСАНДР MILLIGAN R 09/17 [facility] OFFICE O/P EST MOD 30 MIN [id number] Diagnos is: ICD-10- CM E78.5 Hyperli pidemia , unspeci JOSEPH Fan BY R 10/11 [facility] Outpatient Encounter [id number] 10/18 [facility] Outpatient Encounter [id number] 11/13 [facility] Outpatient Encounter [id number] 11/14 [facility] Outpatient Encounter [id number] ZACK HERNANDEZ EVARISTO Powell 11/15 [facility] Outpatient Encounter [id number] 11/26 [facility] Outpatient Encounter [id number] 11/26 [facility] Outpatient Encounter [id number] 01/04 [facility] Outpatient Encounter [id number] ZACK HERNANDEZ EVARISTO Powell 01/04 [facility] Outpatient Encounter [id number] 02/11 [facility] Outpatient Encounter [id number] 03/07 [facility] Outpatient Encounter [id number] 03/28 [facility] Social History Combined list of available smoking, tobacco, and other social history from Department of Defense and Veterans Affairs facilities. Social History Type Response Date Comment [facility] e Tobacco smoking status NHIS VA-TOBACCO NEVER USED CIGARETTES 10/11/2024 [facility] History of tobacco use VA-TOBACCO USE SOME DAYS OTHER TYPE 10/11/2024 [facility] History of tobacco use RI-TOBACCO DOESNT USE WI 30 MIN WAKEUP 09/27/2023 [facility] History of tobacco use VA-TOBACCO USER EVERY DAY 02/05/2022 [facility] History of tobacco use VA-TOBACCO USER EVERY DAY 03/04/2021 [facility] History of tobacco use VA-TOBACCO USE MED NO 01/23/2020 [facility] History of tobacco use VA-TOBACCO USE WI 30 MIN OF WAKEUP 04/20/2018 [facility] History of tobacco use TOBACCO USER OFFERED MEDS 03/13/[facility] History of tobacco use TOBACCO USER OFFERED MEDS 10/10/2017 [facility] History of tobacco use CURRENT TOBACCO USER 03/28/2017 [facility] History of tobacco use CURRENT TOBACCO USER 03/14/2017 [facility] History of tobacco use CURRENT TOBACCO USER 05/31/2016 [facility] History of tobacco use CURRENT TOBACCO USER 06/18/2015 [facility] History of tobacco use CURRENT TOBACCO USER 06/17/2014 [facility] History of tobacco use CURRENT TOBACCO USER 05/02/2013 [facility] History of tobacco use CURRENT TOBACCO USER 04/19/2012 [facility] History of tobacco use CURRENT TOBACCO USER 02/09/2011 [facility] Plan of Care List of future care activities from Department [facility] facilities. Additional future care activities may be listed in the Assessment and Plan section. Date/Time Care Activity Care Activity Detail Facili ty 04/19/2025 AMBULATORY - MEDICINE AMBULATORY - MEDICI NE [facility] Advance Directives List of completed, amended, or rescinded Advance Directives on record at [facility] facilities. An actual copy of the Directive is not included. Date Advance Directive Provider Source 03/17/2011 ADVANCE DIRECTIVE DISCUSSION JADE MARTINEZ [facility]
--- OUTSIDE RECORDS SUMMARY | 2025-04-10 10:54 | XMS_ITS | Clinical Summary ---
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 Gender Identity Not on file Sexual Orientation Not on file Last Filed Vital Signs Vital Sign Reading Time Taken Comments Blood Pressure 109/70 09/06/2024 9:25 AM LAST REMODELER REPAIRER Pulse 60 09/06/2024 9:25 AM LAST REMODELER REPAIRER Temperature 36.7 C (98 F) 09/06/2024 9:25 AM LAST REMODELER REPAIRER Respiratory Rate 16 09/06/2024 9:25 AM LAST REMODELER REPAIRER Oxygen Saturation 99% 09/06/2024 9:25 AM LAST REMODELER REPAIRER Inhaled Oxygen Concentration - - Weight 74.4 kg (164 lb) 09/06/2024 9:25 AM LAST REMODELER REPAIRER Height 177.8 cm (5' 10) 09/06/2024 9:25 AM LAST REMODELER REPAIRER Body Mass Index 23.53 09/06/2024 9:25 AM LAST REMODELER REPAIRER Plan of Treatment Health Maintenance Due Date [...] Completed 03/03/2016 , 08/18/2015 Insurance [employer] PPO [facility]
--- OUTSIDE RECORDS SUMMARY | 2025-04-10 10:54 | XMS_ITS | Referral Summary ---
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 Pulse 74 08/20/2021 8:35 AM STAGE SETTINGS PAINTER Temperature 36.7 C (98 F) 08/20/2021 8:35 AM STAGE SETTINGS PAINTER Respiratory Rate 18 08/20/2021 8:35 AM STAGE SETTINGS PAINTER Oxygen Saturation 98% 08/20/2021 8:35 AM STAGE SETTINGS PAINTER Inhaled Oxygen Concentration - - Weight 76.9 kg (169 lb 8 oz) 08/19/2021 5:55 AM STAGE SETTINGS PAINTER Height 177.8 cm (5' 10) 08/19/2021 5:55 AM STAGE SETTINGS PAINTER Body Mass Index 24.32 08/19/2021 5:55 AM STAGE SETTINGS PAINTER Plan of Treatment Not on file Medical Devices Implanted Type Area Race Steward Device Identifier Shelf Expiration Date Model / Serial / Lot [employer] [id number] Tornier Aequalis Perform 15mm Press Fit Long Post Shoulder - [id number] - [id number] Implanted:Qty : 1 on 08/19/2021 by Mina Washington MD at [facility] Other - see comments Right: Shoulder [employer] [id number] 04/22/2026 [id number] / [id number] / [employer] [id number] Tornier Aequalis Perform 25mm Lateralize Augment Reverse Shoulder - [id number] - [id number] Implanted:Qty : 1 on 08/19/2021 by Mina Washington MD at [facility] Other - see comments Right: Shoulder [employer] [id number] 06/15/2026 [id number] / [id number] / [employer] [id number] Tornier Aequalis Perform 39mm Reverse Shoulder Standard Sphere - [id number] - [id number] Implanted:Qty : 1 on 08/19/2021 by Mina Washington MD at [facility] Other - see comments Right: Shoulder [employer] [id number] 06/22/2026 [id number] / [id number] / [employer] [id number] Insert Perform 10 Deg [id number] - [id number] - [id number] Implanted:Qty : 1 on 08/19/2021 by Mina Washington MD at [facility] Other - see comments Right: Shoulder [employer] [id number] 01/14/2026 [id number] / [id number] / [employer] [id number] Stem Perform Sz 3 Humeral - Sna - [id number] Implanted:Qty : 1 on 08/19/2021 by Mina Washington MD at [facility] Other - see comments Right: Shoulder [employer] [id number] / [id number] / [employer] [id number] Aequalis Perform Reversed 5mm 34mm Peripheral Glenoid Screw - [id number] Implanted:Qty : 2 on 08/19/2021 by Mina Washington MD at [facility] Screw Right: Shoulder [employer] [id number] / / Insurance [facility] MDCR HMO REF [facility] MEDICARE Address: [address] [address] [place] [address] [facility] MEDICARE [place] [facility] [place] [facility] [employer] Advance Directives For more information, please contact: [phone] * Full Code (Latest Code Status on File) Date Activated Date Inactivated Comments 08/19/2021 11:07 AM 08/20/2021 3:42 PM Care Teams Sour Bleaching Pleater Relationship Specialty Start Date End Date Cassandra Mathis DO PCP - General Family Medicine 02/10/21
--- OUTSIDE RECORDS SUMMARY | 2025-04-10 10:54 | XMS_ITS | Continuity of Care Document ---
Author Organization [facility] Address [address] [place] [address] Phone Care Team Providers Care Math Interventionist Name Role Phone Driss Singh Unavailable Unavailable Advance Directives Directive Yes / No Effective Date File Name No Information Encounters Encounter Description Practice Location Reason(s) For Visit Diagnoses Date Provider Providers Copied on Encounter [facility], [address], [place], [place], [id number], [place] tel:[phone] [facility] No Information [address] , [address], [place], [address], [place]. tel:[phone] Family History Family Member Type Diagnosis Age [...]
--- OUTSIDE RECORDS SUMMARY | 2025-04-10 10:54 | XMS_ITS | Clinical Summary ---
Author Organization 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
[2025-04-10] MEDS: SODIUM CHLORIDE 0.9% IV 1,000 ML 999 ML IV CONT (10:55)
--- NOTE | 2025-04-10 11:01 | PC.NURSE ---
Per Anaid, Orthostatic pressure to be performed after fluid bolus
[2025-04-10 11:03] LABS: Alanine Aminotransferase 18 U/L (6-50); Albumin Level 4.3 g/dL (3.5-5.1); Alkaline Phosphatase 53 U/L (38-126); Anion Gap 6 mmol/L (4-12); Aspartate Amino Transferase 29 U/L (17-59); Bilirubin,Total 0.9 mg/dL (0.2-1.3); Blood Urea Nitrogen 14 mg/dL (9-20); Calcium 8.8 mg/dL (8.4-10.2); Carbon Dioxide 28 mmol/L (22-30); Chloride 102 mmol/L (98-107); Estimated CRCL calculation 63 ml/min; Estimated Glomerular Filt Rate > 60; Glucose 111 mg/dL (65-110); Hematocrit 37.1 % (42.0-52.0); Hemoglobin 12.7 g/dL (14.0-18.0); Immature Granulocyte Percent A 0.7 % (0-0.5); Lipase 100 U/L (23-300); Lymphocytes Absolute Auto 1.07 K/mm3 (0.9-3.2); Mean Corpuscular HGB Conc 34.2 g/dl (32-36); Mean Corpuscular Hemoglobin 32.4 pg (26-34); Mean Corpuscular Volume 94.6 fl (80-100); Nucleated Red Blood Cells Absolute Auto 0.000 K/mm3 (0.0-0.012); Nucleated Red Blood Cells Perc 0.0 % (0.0-0.2); Platelet Count Result 132 k/mm3 (150-375); Potassium 3.6 mmol/L (3.4-5.0); Red Blood Count 3.92 M/mm3 (4.6-6.20); Sodium 136 mmol/L (137-145); Total Protein 7.3 g/dL (6.3-8.2); White Blood Count 4.6 K/mm3 (4.5-10.0)
[2025-04-10 11:38] LABS: Influenza A QL RT-PCR Negative (Negative); Influenza B QL RT-PCR Negative (Negative); RSV RNA, RT-PCR Negative (Negative); SARS-CoV-2 RNA PCR Negative (Negative)
[2025-04-10 12:10] LABS: Add Urine Microscopic? NO; Appearance Urine Clear (Clear); Glucose Urine UA Negative (Negative); Leukocyte Esterase Ur Negative LEU/UL (Negative); Nitrate Urine Negative (Negative); Specific Grav Ur 1.010 (1.001-1.035)
== END 2025-04-10 12:47 | disposition home or self-care (01) ==
PROVIDERS: Emergency Provider Physician Assistant; PCP Family Medicine
DX: R19.7 Diarrhea, unspecified (principal); Z20.822 Contact with and (suspected) exposure to COVID-19; I10 Essential (primary) hypertension; Z86.73 Personal history of transient ischemic attack (TIA), and cerebral infarction without residual deficits; E78.5 Hyperlipidemia, unspecified
CPT/HCPCS: 36415; 80053; 81003; 83690; 85025; 87637; 93005; 96360; 99283; J7030